=== PATIENT | female | born 1935 | race Caucasian/White ===

== ENCOUNTER 2016-06-23 01:38 | Inpatient (IN) | payer MEDICARE, OTHER ==
[2016-06-23] MEDS ORDERED: SODIUM CHLORIDE 0.9% 500 ML IV STA (02:00)
[2016-06-23] MEDS ORDERED: SODIUM CHLORIDE 0.9% 1,000 ML IV STA (02:00)
[2016-06-23] MEDS ORDERED: RX INFO: IV CONTRAST WAS GIVEN 1 EACH MISC MISCELLANE PRN (02:00)
[2016-06-23] MEDS ORDERED: ONDANSETRON ODT 8 MG TAB.RAPDIS PO STA (02:00)
[2016-06-23] MEDS ORDERED: DICYCLOMINE 10 MG/ML 2 ML AMP IM STA (02:00)
[2016-06-23] MEDS ORDERED: FAMOTIDINE 20 MG/2 ML VIAL IV STA (02:01)
--- NOTE | 2016-06-23 02:04 | ED ---
General Adult HPI - General Chief complaint: Abdominal Pain Stated complaint: ABD PAIN Time Seen by Provider: 06/23/16 01:54 Source: patient, family, RN notes reviewed Mode of arrival: ambulatory Limitations: no limitations - History of Present Illness Initial comments: Patient is a pleasant 80-year-old female presenting to the emergency Department with abdominal discomfort and vomiting. Onset of symptoms was 2-3 days ago. Discomfort has been steady. Patient has developed nausea and now has had a few episodes of emesis. No constipation or diarrhea. No fevers. No history of similar symptoms previously. No chest pain. Patient does have chronic lower back pain and takes pain medication daily for this. - Related Data Home Medications Medication Instructions Recorded Confirmed Aspirin 81 mg PO DAILY 10/08/14 06/23/16 Esomeprazole Magnesium [NexIUM] 20 mg PO DAILY 10/08/14 06/23/16 Furosemide [Lasix] 20 mg PO DAILY 10/08/14 06/23/16 Gabapentin [Neurontin] 100 mg PO TID 10/08/14 06/23/16 HYDROcodone/APAP 5-325MG [[place] 1 tab PO Q6HR PRN 10/08/14 06/23/16 5-325] Losartan Potassium [Cozaar] 100 mg PO DAILY 10/08/14 06/23/16 Metoprolol Tartrate [Lopressor] 50 mg PO DAILY 10/08/14 06/23/16 Warfarin Sodium [Coumadin] 3.5 mg PO DAILY 10/08/14 06/23/16 Potassium Chloride ER [K-Dur 20] 20 meq PO DAILY 11/15/15 06/23/16 Previous Rx's Medication Instructions Recorded Cephalexin [Keflex] 500 mg PO Q12HR 10 Days 11/15/15 Ondansetron HCl [Zofran] 4 mg PO Q8HR PRN #12 tab 11/15/15 Allergies Allergy/AdvReac Type Severity Reaction Status Date / Time amoxicillin trihydrate Allergy Unknown Verified 06/23/16 01:44 [From Augmentin] ciprofloxacin [From Cipro] Allergy Unknown Verified 06/23/16 01:44 ciprofloxacin HCl Allergy Unknown Verified 06/23/16 01:44 [From Cipro] potassium clavulanate Allergy Unknown Verified 06/23/16 01:44 [From Augmentin] Sulfa (Sulfonamide Allergy Rash/Hives Verified 06/23/16 01:44 Antibiotics) Review of Systems ROS Statement: Those systems with pertinent positive or pertinent negative responses have been documented in the HPI. ROS Other: All systems not noted in ROS Statement are negative. Constitutional: Denies: fever Eyes: Denies: eye pain ENT: Denies: ear pain Respiratory: Denies: cough, dyspnea Cardiovascular: Denies: chest pain Endocrine: Denies: fatigue Gastrointestinal: Reports: abdominal pain, nausea, vomiting Genitourinary: Denies: dysuria Musculoskeletal: Reports: back pain (Chronic) Skin: Denies: rash Neurological: Denies: weakness Past Medical History Past Medical History: Asthma, Heart Failure, Diabetes Mellitus, Hypertension 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/16 Past Psychological History: No Psychological Hx Reported Smoking Status: Never smoker Past Alcohol Use History: None Reported Past Drug Use History: None Reported General Exam Limitations: no limitations General appearance: alert, in no apparent distress Head exam: Present: atraumatic Eye exam: Present: normal appearance, PERRL ENT exam: Present: normal oropharynx Neck exam: Present: normal inspection Respiratory exam: Present: normal lung sounds bilaterally Cardiovascular Exam: Present: regular rate, normal rhythm, other (Is nontender swelling beneath the pacemaker left anterior chest wall with some ecchymosis.) Expanded Peripheral pulses: 2+: Dorsalis Pedis (R), Dorsalis Pedis (L) GI/Abdominal exam: Present: soft, tenderness (Mild to moderate epigastric tenderness to palpation.), normal bowel sounds, other (Left inguinal hernia that is not reducible. Nontender.). Absent: distended, guarding, rebound, rigid, pulsatile mass Extremities exam: Present: normal inspection. Absent: pedal edema, calf tenderness Neurological exam: Present: alert Psychiatric exam: Present: normal affect, normal mood Skin exam: Absent: rash Course Vital Signs 06/23/16 01:41 Temperature 97.6 F Pulse Rate 70 Respiratory 18 Rate Blood Pressure 144/70 O2 Sat by Pulse 97 Oximetry EKG Findings - EKG Comments: EKG Findings:: Paced rhythm at 70. QRS 138. QT 556. QTc 600. Left axis. Wide QRS complex. Nonspecific ST-T. Medical Decision Making - Medical Decision Making Patient reexamined and resting comfortably in bed. Patient symptom-free at this time. Patient and family updated on CT results and plan. Hernia is not reducible. Case discussed in detail with Dr. Valente, who will admit for surgical call with medical consult. - Lab Data Result diagrams: 06/23/16 02:27 06/23/16 02:27 Lab Results 06/23/16 06/23/16 06/23/16 Range/Units 02:27 02:27 02:27 WBC 16.4 H (3.8-10.6) k/uL RBC 4.79 (3.80-5.40) m/uL Hgb 13.2 (11.4-16.0) gm/dL Hct 42.3 (34.0-46.0) % MCV 88.3 (80.0-100.0) fL MCH 27.5 (25.0-35.0) pg MCHC 31.1 (31.0-37.0) g/dL RDW 16.9 H (11.5-15.5) % Plt Count 334 (150-450) k/uL Neutrophils % 90 % Lymphocytes % 3 % Monocytes % 7 % Eosinophils % 0 % Basophils % 0 % Neutrophils # 14.7 H (1.3-7.7) k/uL Lymphocytes # 0.4 L (1.0-4.8) k/uL Monocytes # 1.2 H (0-1.0) k/uL Eosinophils # 0.0 (0-0.7) k/uL Basophils # 0.0 (0-0.2) k/uL Hypochromasia Slight Anisocytosis Slight PT (9.0-12.0) sec INR (<1.1) APTT (22.0-30.0) sec Sodium 141 (137-145) mmol/L Potassium 3.8 (3.5-5.1) mmol/L Chloride 97 L (98-107) mmol/L Carbon Dioxide 29 (22-30) mmol/L Anion Gap 15 mmol/L BUN 39 H (7-17) mg/dL Creatinine 0.80 (0.52-1.04) mg/dL Est GFR (MDRD) Af Amer >60 (>60 ml/min/1.73 sqM) Est GFR (MDRD) Non-Af >60 (>60 ml/min/1.73 sqM) Glucose 190 H (74-99) mg/dL Calcium 10.2 (8.4-10.2) mg/dL Total Bilirubin 1.0 (0.2-1.3) mg/dL AST 27 (14-36) U/L ALT 30 (9-52) U/L Alkaline Phosphatase 81 (38-126) U/L Total Creatine Kinase 34 (30-135) U/L CK-MB (CK-2) 1.1 (0.0-2.4) ng/mL CK-MB (CK-2) Rel Index 3.2 Troponin I <0.012 (0.000-0.034) ng/mL Total Protein 8.5 H (6.3-8.2) g/dL Albumin 4.6 (3.5-5.0) g/dL Amylase 65 (30-110) U/L Lipase 74 (23-300) U/L 06/23/16 Range/Units 02:27 WBC (3.8-10.6) k/uL RBC (3.80-5.40) m/uL Hgb (11.4-16.0) gm/dL Hct (34.0-46.0) % MCV (80.0-100.0) fL MCH (25.0-35.0) pg MCHC (31.0-37.0) g/dL RDW (11.5-15.5) % Plt Count (150-450) k/uL Neutrophils % % Lymphocytes % % Monocytes % % Eosinophils % % Basophils % % Neutrophils # (1.3-7.7) k/uL Lymphocytes # (1.0-4.8) k/uL Monocytes # (0-1.0) k/uL Eosinophils # (0-0.7) k/uL Basophils # (0-0.2) k/uL Hypochromasia Anisocytosis PT 12.4 H (9.0-12.0) sec INR 1.3 (<1.1) APTT 23.0 (22.0-30.0) sec Sodium (137-145) mmol/L Potassium (3.5-5.1) mmol/L Chloride (98-107) mmol/L Carbon Dioxide (22-30) mmol/L Anion Gap mmol/L BUN (7-17) mg/dL Creatinine (0.52-1.04) mg/dL Est GFR (MDRD) Af Amer (>60 ml/min/1.73 sqM) Est GFR (MDRD) Non-Af (>60 ml/min/1.73 sqM) Glucose (74-99) mg/dL Calcium (8.4-10.2) mg/dL Total Bilirubin (0.2-1.3) mg/dL AST (14-36) U/L ALT (9-52) U/L Alkaline Phosphatase (38-126) U/L Total Creatine Kinase (30-135) U/L CK-MB (CK-2) (0.0-2.4) ng/mL CK-MB (CK-2) Rel Index Troponin I (0.000-0.034) ng/mL Total Protein (6.3-8.2) g/dL Albumin (3.5-5.0) g/dL Amylase (30-110) U/L Lipase (23-300) U/L - Radiology Data Radiology results: report reviewed (Computed tomography scan of the abdomen pelvis concerning for small bowel obstruction with left inguinal hernia containing a portion of small bowel.) Disposition Clinical Impression: Small bowel obstruction, Inguinal hernia Disposition: ADMITTED IP TO THIS HOSP
[2016-06-23 02:48] LABS: ALT 30 U/L (9-52); AST 27 U/L (14-36); Alkaline Phosphatase 81 U/L (38-126); Amylase 65 U/L (30-110); Anion Gap 15 mmol/L; Blood Urea Nitrogen 39 mg/dL (7-17); Calcium 10.2 mg/dL (8.4-10.2); Carbon Dioxide 29 mmol/L (22-30); Chloride 97 mmol/L (98-107); Glucose 190 mg/dL (74-99); Non-African American GFR(MDRD) >60 (>60 ml/min/1.73 sqM); Potassium 3.8 mmol/L (3.5-5.1); Sodium 141 mmol/L (137-145); Total Protein 8.5 g/dL (6.3-8.2)
[2016-06-23 02:53] LABS: INR 1.3 (<1.1); Prothrombin Time 12.4 sec (9.0-12.0)
[2016-06-23 02:55] LABS: Anisocytosis Slight; Basophils % (A) 0 %; CH 27.5; CHCM 31.2; Eosinophils % (A) 0 %; HCT 42.3 % (34.0-46.0); HGB 13.2 gm/dL (11.4-16.0); Hypochromasia Slight; Luc % (Auto) 1; Lymphocytes # (A) 0.4 k/uL (1.0-4.8); Lymphocytes % (A) 3 %; MCH 27.5 pg (25.0-35.0); MCHC 31.1 g/dL (31.0-37.0); MCV 88.3 fL (80.0-100.0); Mean Platelet Volume 6.9; Monocytes # (A) 1.2 k/uL (0-1.0); Monocytes % (A) 7 %; Neutrophils # (A) 14.7 k/uL (1.3-7.7); Neutrophils % (A) 90 %; RBC 4.79 m/uL (3.80-5.40); RDW 16.9 % (11.5-15.5); WBC 16.4 k/uL (3.8-10.6); WBC (Perox) 16.16
[2016-06-23 03:03] LABS: Creatine Kinase 34 U/L (30-135)
[2016-06-23 03:15] LABS: Creatine Kinase MB 1.1 ng/mL (0.0-2.4); Troponin I <0.012 ng/mL (0.000-0.034)
--- NOTE | 2016-06-23 04:21 | CT ---
EXAMINATION TYPE: CT abdomen pelvis w con DATE OF EXAM: 06/23/2016 3:19 AM COMPARISON: NONE HISTORY: Upper abd pain, nausea. CT DLP: 354.10 mGycm Automated exposure control for dose reduction was used. CONTRAST: Performed without Oral Contrast and with IV Contrast, patient injected with 100 mL of Omnipaque 300. FINDINGS: Heart is enlarged. There is no pleural effusion. There are clips from cholecystectomy. Spleen appears normal. There is no pancreatic mass. Liver shows no focal defect. Bile ducts are not dilated. There is no adrenal mass. Kidneys show satisfactory contrast opacification. There is no hydronephrosi s. There are multiple dilated fluid-filled loops of small bowel in the midabdomen. There are numerous di verticula in the sigmoid colon. There is no evidence of free air. There is no retroperitoneal adenopa thy. Abdominal aorta is atheromatous. Bladder distends smoothly. There is a left inguinal hernia that contains fluid. There appears to be a loop of small bowel involved with the hernia with incarceratio n and obstruction. IMPRESSION: MECHANICAL SMALL BOWEL OBSTRUCTION WITH APPARENT INCARCERATED LEFT INGUINAL HERNIA CONTAINING A LOOP OF OBSTRUCTED SMALL BOWEL. SEVERE SIGMOID DIVERTICULOSIS WITHOUT EVIDENCE OF DIVERTICULITIS. CARDIOMEGALY.
[2016-06-23] MEDS ORDERED: ONDANSETRON 4 MG/2 ML VIAL IVP PRN ×2 (04:36→13:02)
[2016-06-23] MEDS ORDERED: NALOXONE 0.4 MG/ML 1 ML VIAL IV PRN ×2 (04:36→13:02)
[2016-06-23] MEDS ORDERED: LIDOCAINE URO-JET JELLY 2% 5 ML KIT ENDOTRACHE ONE (05:00)
[2016-06-23] MEDS: SODIUM CHLORIDE 0.9% 1,000 ML IV SCH ×2 (06:55→14:27)
[2016-06-23] MEDS ORDERED: PANTOPRAZOLE 40 MG/10 ML VIAL IV SCH (09:00)
[2016-06-23 09:02] LABS: Appearance,Urine Clear (Clear); Bilirubin,Urine Negative (Negative); Glucose,Urine (UA) Negative (Negative); Ketones,Urine Negative (Negative); Leukocyte Esterase,Urine Negative (Negative); Mucus,Urine Rare /hpf; Nitrite,Urine Negative (Negative); PH, Urine 5.5 (5.0-8.0); Particle Count 4821; Protein,Urine 1+ (Negative); Squamous Epithelial Cell,Urine 1 /hpf (0-4); UA Billing (MACRO vs. MICRO) MICRO; Urobilinogen,Urine <2.0 mg/dL (<2.0); WBC,Urine 2 /hpf (0-5)
[2016-06-23 09:04] LABS: Specific Gravity,Urine >1.050 (1.001-1.035)
--- NOTE | 2016-06-23 09:06 | P.CRDCN ---
History of Present Illness Consult date: 06/23/16 Reason for Consult (text): Pre-operative clearance Chief complaint: abdominal pain History of present illness: This is a pleasant 80-year-old female patient who follows with a counter clerk [employer] out of [facility] with a known history of sick sinus syndrome, AICD in place with recent generator change, patient appears to be pacemaker dependent, atrial fibrillation on Coumadin, mitral valve repair and hypertension. Patient presented to the emergency department with complaints of abdominal pain as well as nausea and vomiting that had been going on for at least 3 days. Patient has a left inguinal hernia that she says has recently gotten larger. Cardiology was asked to see the patient in consult as patient is requiring emergent surgery for reduction and repair of an incarcerated left inguinal hernia by Dr. Valente. Upon examination, patient appears to be quite comfortable however continues to complain complain of some abdominal discomfort as well as pain at her left inguinal hernia with palpation. She has had no complaints of shortness of breath, palpitations, chest discomfort, dizziness or syncope. Past Medical History Past Medical History: Heart Failure, Diabetes Mellitus, Hypertension, Osteoarthritis (OA), Pneumonia, Thyroid Disorder 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/16 Type of Cardiac Device: Permanent Pacemaker Device Placement Date:: 2011 Past Psychological History: No Psychological Hx Reported Smoking Status: Never smoker Past Alcohol Use History: None Reported Past Drug Use History: None Reported Medications and Allergies Home Medications Medication Instructions Recorded Confirmed Type Aspirin 81 mg PO DAILY 10/08/14 06/23/16 History Esomeprazole Magnesium [NexIUM] 20 mg PO DAILY 10/08/14 06/23/16 History Furosemide [Lasix] 20 mg PO DAILY 10/08/14 06/23/16 History Gabapentin [Neurontin] 100 mg PO TID 10/08/14 06/23/16 History HYDROcodone/APAP 5-325MG [[place] 1 tab PO Q6HR PRN 10/08/14 06/23/16 History 5-325] Losartan Potassium [Cozaar] 100 mg PO DAILY 10/08/14 06/23/16 History Metoprolol Tartrate [Lopressor] 50 mg PO DAILY 04/14/15 12/28/16 History Warfarin Sodium [Coumadin] 3.5 mg PO DAILY 10/08/14 06/23/16 History Potassium Chloride ER [K-Dur 20] 20 meq PO DAILY 11/15/15 06/23/16 History Allergies Allergy/AdvReac Type Severity Reaction Status Date / Time amoxicillin trihydrate Allergy Unknown Verified 06/23/16 01:44 [From Augmentin] ciprofloxacin [From Cipro] Allergy Unknown Verified 06/23/16 01:44 ciprofloxacin HCl Allergy Unknown Verified 06/23/16 01:44 [From Cipro] potassium clavulanate Allergy Unknown Verified 06/23/16 01:44 [From Augmentin] Sulfa (Sulfonamide Allergy Rash/Hives Verified 06/23/16 01:44 Antibiotics) Physical Exam Vitals: Vital Signs Temp Pulse Pulse Resp BP BP Pulse Ox 06/23/16 07:54 70 06/23/16 07:00 97.8 F 70 16 135/72 96 06/23/16 06:00 97.0 F L 70 16 148/85 95 06/23/16 05:14 68 18 170/79 94 L Intake and Output 06/22/16 06/23/16 06/23/16 22:59 06:59 14:59 Intake Total 1000 Balance 1000 Intake: Amount of Fluid Infused ( 1000 ml) Other: Voiding Method Toilet Weight 67.5 kg PHYSICAL EXAMINATION: HEENT: Head is atraumatic, normocephalic. Pupils equal, round. Neck is supple. There is no elevated jugular venous pressure. HEART EXAMINATION: Heart sounds regular, S1 and S2 with a systolic murmur heard. CHEST EXAMINATION: Lungs are clear to auscultation and precussion. LIC incision , post generator change Steri-Strips intact, mild to moderate semi-soft hematoma noted. ABDOMEN: Soft, tender. NG tube in place to low intermittent suction, no bowel sounds are heard. Left inguinal hernia noted. EXTREMITIES: 2+ peripheral pulses with no evidence of peripheral edema and no calf tenderness noted. NEUROLOGIC patient is awake, alert and oriented x3. . Results 06/23/16 02:27 06/23/16 02:27 Current Medications Generic Name Dose Route Start Last Admin Trade Name Freq PRN Reason Stop Dose Admin Sodium Chloride 1,000 mls @ 100 mls/hr 06/23/16 02:00 06/23/16 02:45 Saline 0.9% IV 06/23/16 11:59 100 mls/hr .Q10H STA Administration Sodium Chloride 1,000 mls @ 100 mls/hr 06/23/16 04:45 06/23/16 06:55 Saline 0.9% IV 100 mls/hr .Q10H BRAYAN Administration Miscellaneous Information 1 each 06/23/16 02:00 Rx Info: Iv Contrast Was Given MISCELLANE 06/25/16 02:01 DAILY PRN Per Protocol Morphine Sulfate 4 mg 06/23/16 04:36 Morphine Sulfate (Inj) IV Q4HR PRN Severe Pain Naloxone HCl 0.2 mg 06/23/16 04:36 Narcan IV Q2M PRN Opioid Reversal Ondansetron HCl 4 mg 06/23/16 04:36 Zofran IVP Q8HR PRN Nausea And Vomiting Pantoprazole Sodium 40 mg 06/23/16 09:00 Protonix IV DAILY BRAYAN Intake and Output 06/22/16 06/23/16 06/23/16 22:59 06:59 14:59 Intake Total 1000 Balance 1000 Intake: Amount of Fluid Infused ( 1000 ml) Other: Voiding Method Toilet Weight 67.5 kg Assessment and Plan Plan: Assessment and plan #1 Abdominal pain with evidence of incarcerated hernia #2 Chronic atrial fibrillation #3 Sick sinus syndrome, pacemaker dependent #4 hypertension #[address], s/p recent generator change The patient was seen and examined this morning. She is requiring emergent surgery for reduction and repair of the left inguinal incarcerated hernia and bowel obstruction. The patient is at intermediate risk for intraoperative cardiac event, she is in an acceptable risk to undergo surgery. We will obtain records from [facility]. A magnet will be placed over the AICD intraoperatively and we will call [employer] for interrogation of the device postoperatively. The patient will need to resume anticoagulation when okay with surgery. We will continue to follow the patient and provide further recommendations accordingly. The above dictated assessment and findings were discussed with signing physician. The impression and plan of care have been directed as dictated. Nayely Guerrero, Nurse Practitioner, acting as scribe for signing physician.
[2016-06-23] MEDS ORDERED: HEPARIN SODIUM,PORCINE 5,000 UNIT/ML 1 ML VIAL SQ ONE (09:25)
--- NOTE | 2016-06-23 09:25 | P.GSHP ---
History of Present Illness H&P Date: 06/23/16 Chief Complaint: Abdominal pain, bulge left groin Patient is an 80-year-old white female who presented to the emergency room with a several-day history of nausea and vomiting. Additionally she had some diffuse abdominal discomfort. A CAT scan was performed which revealed an incarcerated left inguinal hernia with bowel present in the hernia sac. The patient states that she has been passing flatus and did pass flatus within the last 24 hours. Of additional concern is the fact that the patient was having black stools approximately a month ago and had a colonoscopy and EGD performed. She states that the cause with a black stools had not been determined and she was to undergo further workup in the future. The patient's medical history is also significant for the fact that she has an AICD present illness completely pacer dependent. Additionally she has had a mitral valve replaced in the past. Her medical doctors are in the [place] area however she wishes to have this surgery performed and purulent if possible. Past surgical history: 1. Pacemaker replaced secondary to a recall approximately 3 weeks ago in the [place] area after which she developed a hematoma at the site 2. Mitral valve replacement 3. Cholecystectomy 4. Bilateral cataracts surgery Past medical history: 1. Mitral valve replaced, atrial fibrillation 2. Congestive heart failure 3. Cardiac ablation 4. Hypothyroidism 5. Diabetes 6. Osteoarthritis 7. Hypothyroidism ALLERGIES: Sulfa Social history: Smoking negative Alcohol negative 4 pregnancies 4 children Family history: Sr. colon cancer. Review of systems: HEENT: Hearing aids and cataracts Lungs: Pneumonia Heart: Mitral valve replacement, sick sinus syndrome, atrial fibrillation, pacemaker dependent GI: As above : Negative - Constitutional Constitutional: Reports as per HPI - Cardiovascular Cardiovascular: Reports as per HPI - Respiratory Respiratory: Reports as per HPI - Gastrointestinal Gastrointestinal: Reports as per HPI - Genitourinary (Female) Genitourinary: Reports as per HPI - Musculoskeletal Musculoskeletal: Reports as per HPI - Endocrine Endocrine: Reports as per HPI Past Medical History Past Medical History: Heart Failure, Diabetes Mellitus, Hypertension, Osteoarthritis (OA), Pneumonia, Thyroid Disorder 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/16 Type of Cardiac Device: Permanent Pacemaker Device Placement Date:: 2011 Past Psychological History: No Psychological Hx Reported Smoking Status: Never smoker Past Alcohol Use History: None Reported Past Drug Use History: None Reported Medications and Allergies Home Medications Medication Instructions Recorded Confirmed Type Aspirin 81 mg PO DAILY 10/08/14 06/23/16 History Esomeprazole Magnesium [NexIUM] 20 mg PO DAILY 10/08/14 06/23/16 History Furosemide [Lasix] 20 mg PO DAILY 10/08/14 06/23/16 History Gabapentin [Neurontin] 100 mg PO TID 10/08/14 06/23/16 History HYDROcodone/APAP 5-325MG [[place] 1 tab PO Q6HR PRN 10/08/14 06/23/16 History 5-325] Losartan Potassium [Cozaar] 100 mg PO DAILY 10/08/14 06/23/16 History Metoprolol Tartrate [Lopressor] 50 mg PO DAILY 10/08/14 06/23/16 History Warfarin Sodium [Coumadin] 3.5 mg PO DAILY 10/08/14 06/23/16 History Potassium Chloride ER [K-Dur 20] 20 meq PO DAILY 11/15/15 06/23/16 History Allergies Allergy/AdvReac Type Severity Reaction Status Date / Time amoxicillin trihydrate Allergy Unknown Verified 06/23/16 01:44 [From Augmentin] ciprofloxacin [From Cipro] Allergy Unknown Verified 06/23/16 01:44 ciprofloxacin HCl Allergy Unknown Verified 06/23/16 01:44 [From Cipro] potassium clavulanate Allergy Unknown Verified 06/23/16 01:44 [From Augmentin] Sulfa (Sulfonamide Allergy Rash/Hives Verified 06/23/16 01:44 Antibiotics) Surgical - Exam Vital Signs Temp Pulse Resp BP Pulse Ox 97.6 F 70 18 144/70 97 06/23/16 01:41 06/23/16 01:41 06/23/16 01:41 06/23/16 01:41 06/23/16 01:41 - General NG tube in place well developed, well nourished, moderate distress - Eyes normal ocular movement - ENT normal pinna, normal nares, normal mucosa - Neck no masses, trachea midline, no lymphadectomy, no venous distension - Respiratory Current decreased breath sounds at the bases normal expansion, clear to auscultation - Cardiovascular Heart Sounds: normal: S1, S2 - Abdomen Incarcerated left inguinal hernia unable to be reduced, no right inguinal hernia appreciated Abdomen: soft, non tender, bowel sounds Hernia: inguinal - Integumentary no rash, no growths - Neurologic normal coordination - Psychiatric oriented to time, oriented to person, speech is normal Results - Labs 06/23/16 02:27 06/23/16 02:27 Abnormal Lab Results - Last 24 Hours (Table) 06/23/16 Range/Units 08:04 Ur Specific [place] >1.050 H (1.001-1.035) Urine Protein 1+ H (Negative) Urine Mucus Rare H (None) /hpf - Imaging CT scan - abdomen: report reviewed, image reviewed US - abdomen: report reviewed, image reviewed (Patient with multiple medical problems who presents with an incarcerated left inguinal hernia resulting in bowel obstruction) Assessment and Plan Plan: Impression/plan: 1. A incarcerated left inguinal hernia resulting in small bowel obstruction 2. Cardiac disease including atrial fibrillation, sick sinus syndrome, mitral valve replacement 3. Diabetes 4. Osteoarthritis 5. Hypothyroidism Plan: 1. Cardiac clearance has been obtained for surgical intervention 2. Case has been discussed with Dr. Weinberg was agrees with proceeding with surgery 3. Surgical intervention to reduce incarcerated left inguinal hernia and repair hernia Patient is at increased surgical risk secondary to her age and cardiac history. The family and patient wished the operative intervention to be performed in [place]. They understand the risks and benefits including bleeding and infection reaction to the anesthetic. They understand the depending on the integrity of the bowel may be necessary to do a bowel resection. They wish to proceed with surgical intervention.
[2016-06-23] MEDS ORDERED: IV FLUID CONTINUATION 1,000 ML IV ONE (09:36)
[2016-06-23] MEDS ORDERED: LIDOCAINE 1% 20 ML VIAL (10MG/ML) FOR IV START INTRADERMA ONE (10:00)
[2016-06-23] MEDS ORDERED: LACTATED RINGERS 1,000 ML IV ONE (10:00)
[2016-06-23 10:04] LABS: Glucose,Whole Blood 120 mg/dL (75-99)
[2016-06-23] MEDS ORDERED: LIDOCAINE 1% INJ 10MG/ML (20 ML MDV) ONE (10:06)
[2016-06-23] MEDS ORDERED: GLYCOPYRROLATE 0.2 MG/ML 2 ML VIAL ONE (10:06)
[2016-06-23] MEDS ORDERED: ETOMIDATE 2 MG/ML 10 ML VIAL ONE (10:06)
[2016-06-23] MEDS ORDERED: NEOSTIGMINE 1 MG/ML 10 ML VIAL ONE (10:06)
[2016-06-23] MEDS: ceFAZolin 2 GM in SODIUM CHLORIDE 0.9% 100 ML IVPB SCH ×2 (10:06→14:35)
[2016-06-23] MEDS ORDERED: fentaNYL (PF) 50 MCG/ML 2 ML AMP ONE (10:06)
[2016-06-23] MEDS ORDERED: SUCCINYLCHOLINE CHLORIDE 100 MG/5 ML SYR IV ONE (10:06)
[2016-06-23] MEDS ORDERED: VECURONIUM 10 MG VIAL IV ONE (10:06)
[2016-06-23] MEDS ORDERED: ceFAZolin 2,000 MG in DEXTROSE/WATER 1 50ML.BAG IVPB SCH (12:00)
[2016-06-23] MEDS: INSULIN LISPRO (humaLOG) 300 UNIT/3 ML VIAL SQ SCH ×2 (12:17→17:27)
[2016-06-23] MEDS ORDERED: HYDROmorphone 1 MG/ML 1 ML SYRINGE IV PRN (13:02)
--- NOTE | 2016-06-23 13:02 | P.OP ---
Date of Procedure: 06/23/16 Preoperative Diagnosis: Incarcerated left groin hernia with small bowel obstruction Postoperative Diagnosis: Incarcerated left femoral hernia, small bowel obstruction, questionable viability of incarcerated bowel Procedure(s) Performed: Left groin exploration, reduction of incarcerated femoral hernia, midline lower abdominal laparotomy to reduce incarcerated hernia, small bowel resection with primary anastomosis, repair of left femoral groin hernia Implants: Anesthesia: TRICIAA Surgeon: Donna Valente Estimated Blood Loss (ml): 50 IV fluids (ml): 700 Urine output (ml): 250 Pathology: other (Hernia sac) Condition: stable Disposition: PACU Indications for Procedure: Incarcerated left groin hernia with small bowel obstruction Operative Findings: Incarcerated left groin/femoral hernia with bowel of questionable viability, small bowel resection and repair of left femoral hernia Description of Procedure: Patient was taken to the operating room and following induction of general anesthesia a Wallace catheter was placed. The left groin and abdomen were prepped and draped in a sterile fashion. An incision was made in the left lower quadrant and carried down to the fascia of the aponeurosis of the external bike. This was skeletonized to the external ring. The obvious incarcerated hernia. To be extending underneath the aponeurosis of the external bike and into the femoral canal. This was able to be freed and brought into the inguinal canal however the sac had very dark tissue present in it. Additionally the neck of the sac was very tight. Entered into the peritoneal cavity. The sac was opened and there was fluid in the sac and the tissue was of questionable viability. 2 reduction en varinder of possible nonviable bowel it was felt that it would be best to open the peritoneal cavity. Midline lower abdominal incision was performed. The fascia was divided the peritoneum was opened. Upon entering the peritoneal cavity we were able to reduce the hernia from the left groin area. This appeared to be a femoral hernia. The bowel which was present in the hernia sac was of questionable integrity. Therefore was determined it would be wisest to do a small bowel resection. The small bowel was resected using a stapling device. A [id number] functional end to end anastomosis was performed. The defect in the mesentery was closed using a Vicryl suture. The peritoneal cavity was well irrigated. The area of the hernia sac was inverted and the sac was removed. The peritoneum was closed using this silk suture at this site. After closure of the peritoneum at the hernia site was determined that the anterior abdominal wall could be closed. The peritoneum was closed with a 3-0 Vicryl suture. This was followed by closure of the fascia with PDS. The skin was closed with azalea. Prior to this closure and after the small bowel resection and anastomosis gowns gloves and all instruments were changed. The area of the left groin was then approached. Secondary to the question as to whether mesh could be placed because this was a clean contaminated case intraoperative consultation was obtained with Dr. Joe Williamson from infectious disease. After discussion it was felt that it would be reasonable to place a Marlex mesh. The round ligament was isolated and removed. A Susi repair was performed bringing the shelving edge of the aponeurosis of the external oblique to Santana's ligament. This was carried to the area of the femoral vessels. Following this an onlay Marlex mesh 1 x 3 cm was placed and secured using a Prolene suture. Following this the aponeurosis of the external bike was closed using a Vicryl suture. One percent lidocaine was injected into the area of the repair. Subcutaneous tissues were closed using 3-0 Vicryl suture. The skin was closed using azalea. All instrument and sponge counts were correct at the end of the case.
[2016-06-23] MEDS ORDERED: LORazepam 2 MG/ML SYRINGE IV ONE (13:15)
[2016-06-23 13:32] LABS: Glucose,Whole Blood 113 mg/dL (75-99)
[2016-06-23] MEDS ORDERED: HYDROmorphone 1 MG/ML 1 ML SYRINGE IVP ONE (13:35)
[2016-06-23] MEDS: HEPARIN SODIUM,PORCINE 5,000 UNIT/ML 1 ML VIAL SQ SCH (15:17)
[2016-06-23] MEDS: metroNIDAZOLE-NS PMX 500 MG in SALINE 1 100ML.BAG IVPB SCH (15:17)
[2016-06-23 15:21] LABS: Hemoglobin A1C 5.1 % (4.2-6.1)
[2016-06-23] MEDS ORDERED: MELATONIN 3 MG TABLET PO PRN (15:21)
[2016-06-23] MEDS: GABAPENTIN 100 MG CAP PO SCH ×2 (16:29→21:44)
[2016-06-23 17:27] LABS: Glucose,Whole Blood 132 mg/dL (75-99)
[2016-06-23] MEDS: ceFAZolin 1,000 MG in DEXTROSE/WATER 1 50ML.BAG IVPB SCH (18:25)
[2016-06-23] MEDS: KETOROLAC 30 MG/ML 1 ML VIAL IVP PRN (18:27)
--- NOTE | 2016-06-23 21:17 | CONS ---
DATE OF CONSULTATION: REASON FOR CONSULTATION: Preoperative clearance. Patient is a pleasant 80-year-old female who is admitted for incarcerated hernia. Medicine Service evaluated preoperatively and postoperatively. Patient apparently has ( ) from AICD and a generator and patient does have history of atrial fibrillation, mitral valvular repair in the past. Does not appear to have any congestive heart failure. Came in for inguinal hernia repair, which apparently was incarcerated. I saw her postoperatively. Patient successfully underwent surgery. Patient's functional status is ( ) and patient was intermediate risk but able to get the surgery done successfully. Postoperatively the patient is on Dilaudid. I do not believe that is a good idea. Dilaudid was discontinued. Patient has an NG tube in place. Patient is on metoprolol, which we are unable to give, but if she becomes tachycardic then we may need to give IV Dilaudid or Cardizem at that time. Patient was drowsy from anesthesia. Patient denied any fever or chills. Patient denied any shortness of breath, palpitations, chest pain, dizziness or syncopal episode. ROS: all other systems were reviewed and were negative. Past medical history is significant for: 1. Diabetes mellitus. 2. Hypertension. 3. Mitral valve repair. 4. Hypothyroidism. 5. Patient has sick sinus syndrome. 6. Atrial fibrillation. 7. AICD. 8. Cholecystectomy. 9. Pacemaker placement. SOCIAL HISTORY: Never a smoker. Denied any alcohol abuse or any drug abuse. FAMILY HISTORY: Not available at this point of time, although I do not believe it is relevant at this point of time at this age. Home medications include: 1. Aspirin. 2. Esomeprazole. 3. Lasix 20 mg orally daily. 4. Gabapentin. 5. Hydrocodone/acetaminophen. 6. Losartan. 7. Metoprolol. 8. Coumadin. 9. Potassium chloride. ALLERGIES: 1. AMOXICILLIN. 2. CIPROFLOXACIN. 3. POTASSIUM. 4. SULFA DRUGS. PHYSICAL EXAMINATION: VITAL SIGNS: Temperature 97.8, pulse of 70, respiratory rate of 16. Blood pressure is 135/72. Saturating at 96% on room air. GENERAL: The patient is alert and oriented x3, not in any acute distress. Well developed, well nourished. HEENT: Pupils are round and equally reacting to light. EOMI. No scleral icterus. No conjunctival pallor. Normocephalic, atraumatic. No pharyngeal erythema. No thyromegaly. CARDIOVASCULAR: S1 and S2 present. No murmurs, rubs, or gallops. PULMONARY: Chest is clear to auscultation, no wheezing or crackles. ABDOMEN: Post-surgical abdomen. Clean. Sluggish bowel sounds. Patient has an NG tube in place. MUSCULOSKELETAL: No joint swelling or deformity. EXTREMITIES: No cyanosis, clubbing, or pedal edema. NEUROLOGICAL: Gross neurological examination did not reveal any focal deficits. SKIN: No rashes. LABORATORY DATA: Significant for elevated WBC count of 16,200 due to incarcerated hernia. Hemoglobin A1C of 5.1. Rest of the electrolytes is essentially within normal limits. Lipase is within normal limits. Patient is on preoperative antibiotics cefazolin and metronidazole. ASSESSMENT AND PLAN: 1. Incarcerated ventral hernia. Patient ( ) patient is intermediate risk for surgery and patient should go ahead and get the surgery done, as this is an emergent surgery. As I evaluated postoperative as well, patient did clinically well and patient has an NG tube in place. 2. Chronic atrial fibrillation and sick sinus syndrome. Patient needs to be reinitiated on metoprolol as soon as she can tolerate oral medication. Patient at present has an NG tube. Heart rate is fine. Will just hold off and watch her. Regarding her Coumadin, which probably can be restarted once she can tolerate the oral therapy ( ) at this point of time. Antibiotic therapy as per primary service. 3. Hypertension. 4. Diabetes mellitus. 5. Osteoarthritis. 6. Hypothyroidism. For above-mentioned chronic medical problems, I will go ahead and continue her home medications except for metformin. Patient will be started on sliding scale insulin instead. Thank you for letting me participate in the patient's care. I will continue to follow. Avoid narcotic medications. Will use Ketorolac and patient is already on a proton pump inhibitor, which can be continued. MTDD
[2016-06-23] MEDS: WARFARIN 3 MG TAB PO SCH (21:44)
[2016-06-23] MEDS: METOPROLOL TARTRATE 25 MG TAB PO SCH (21:44)
[2016-06-23 22:00] LABS: Glucose,Whole Blood 142 mg/dL (75-99)
[2016-06-24 00:06] LABS: Appearance,Urine Cloudy (Clear); Bacteria,Urine Rare /hpf; Bilirubin,Urine Negative (Negative); Glucose,Urine (UA) Negative (Negative); Ketones,Urine 1+ (Negative); Leukocyte Esterase,Urine Large (Negative); Mucus,Urine Rare /hpf; Nitrite,Urine Negative (Negative); Particle Count 15547; Protein,Urine 1+ (Negative); RBC,Urine 10 /hpf (0-5); Specific Gravity,Urine 1.037 (1.001-1.035); Squamous Epithelial Cell,Urine 4 /hpf (0-4); UA Billing (MACRO vs. MICRO) MICRO; WBC,Urine 18 /hpf (0-5)
[2016-06-24] MEDS: INSULIN LISPRO (humaLOG) 300 UNIT/3 ML VIAL SQ SCH ×4 (00:13→16:19)
[2016-06-24 00:14] LABS: Glucose,Whole Blood 121 mg/dL (75-99)
[2016-06-24] MEDS: HEPARIN SODIUM,PORCINE 5,000 UNIT/ML 1 ML VIAL SQ SCH ×4 (00:19→23:46)
[2016-06-24] MEDS: MORPHINE SULFATE 4 MG/ML SYRINGE IV PRN ×2 (02:38→08:56)
[2016-06-24] MEDS: ceFAZolin 1,000 MG in DEXTROSE/WATER 1 50ML.BAG IVPB SCH ×3 (02:39→13:38)
[2016-06-24] MEDS: SODIUM CHLORIDE 0.9% 1,000 ML IV SCH ×3 (02:41→20:51)
[2016-06-24] MEDS: metroNIDAZOLE-NS PMX 500 MG in SALINE 1 100ML.BAG IVPB SCH ×3 (03:38→15:18)
[2016-06-24 05:33] LABS: Glucose,Whole Blood 98 mg/dL (75-99)
[2016-06-24] MEDS: KETOROLAC 30 MG/ML 1 ML VIAL IVP PRN ×2 (05:40→13:39)
[2016-06-24] MEDS: LEVOTHYROXINE 25 MCG TAB PO SCH (06:31)
[2016-06-24 08:23] LABS: Anisocytosis Slight; Basophils % (A) 0 %; CH 27.2; CHCM 29.5; Eosinophils # (A) 0.1 k/uL (0-0.7); Eosinophils % (A) 1 %; HCT 36.5 % (34.0-46.0); HGB 11.1 gm/dL (11.4-16.0); Hypochromasia Marked; Luc # (Auto) 0.12; Luc % (Auto) 1; Lymphocytes # (A) 0.5 k/uL (1.0-4.8); Lymphocytes % (A) 6 %; MCHC 30.3 g/dL (31.0-37.0); MCV 92.4 fL (80.0-100.0); Mean Platelet Volume 6.5; Monocytes # (A) 0.6 k/uL (0-1.0); Monocytes % (A) 7 %; Neutrophils # (A) 7.1 k/uL (1.3-7.7); Neutrophils % (A) 85 %; RBC 3.95 m/uL (3.80-5.40); RDW 16.7 % (11.5-15.5); WBC 8.4 k/uL (3.8-10.6); WBC (Perox) 9.12
[2016-06-24 08:37] LABS: Glucose 107 mg/dL (74-99)
[2016-06-24 08:38] LABS: ALT 35 U/L (9-52); AST 21 U/L (14-36); Alkaline Phosphatase 60 U/L (38-126); Anion Gap 13 mmol/L; Blood Urea Nitrogen 34 mg/dL (7-17); Calcium 8.5 mg/dL (8.4-10.2); Carbon Dioxide 26 mmol/L (22-30); Chloride 109 mmol/L (98-107); Non-African American GFR(MDRD) >60 (>60 ml/min/1.73 sqM); Potassium 3.4 mmol/L (3.5-5.1); Sodium 148 mmol/L (137-145); Total Bilirubin 0.6 mg/dL (0.2-1.3)
[2016-06-24] MEDS: GABAPENTIN 100 MG CAP PO SCH ×3 (08:40→21:15)
[2016-06-24] MEDS: PANTOPRAZOLE 40 MG/10 ML VIAL IV SCH (08:40)
[2016-06-24] MEDS: ASPIRIN 81 MG CHEW PO SCH (08:40)
[2016-06-24] MEDS: METOPROLOL TARTRATE 25 MG TAB PO SCH ×2 (08:40→21:15)
--- NOTE | 2016-06-24 10:23 | XR ---
EXAMINATION TYPE: XR chest 1V DATE OF EXAM: 06/24/2016 7:15 AM COMPARISON: 11/15/2015 HISTORY: Shortness of breath TECHNIQUE: Single frontal view of the chest is obtained. FINDINGS: Bilateral lower lobe infiltrate and small left effusion. NG tube noted in the abdomen. Car diac device and postsurgical changes with prosthetic heart valve. Cardiomegaly seen. Correlate for COPD. Diffuse osteopenia. No pneumothorax. IMPRESSION: 1. Bilateral infiltrate and small left effusion correlate for mild central venous congestion.
--- NOTE | 2016-06-24 10:28 | P.PN ---
Subjective Mrs. Peres is an 80-year-old white female who is status post reduction of an incarcerated femoral hernia which was resulting in small bowel obstruction. She additionally had repair of the hernia and small bowel resection for area of questionable viability. She is postop day #1. She has no complaints at this time. She has an NG tube which remains in place with approximately 500 mL since the time of surgery. The patient's urine output is recorded as proximally 600 mL. The patient's white count is 8.4 down from 16.4. Patient's hemoglobin 11.1 down from 13.2. Objective - Vital Signs Vital signs: Vital Signs Temp 97.8 F 06/24/16 07:00 Pulse 73 06/24/16 07:00 Resp 16 06/24/16 07:00 BP 127/60 06/24/16 07:00 Pulse Ox 95 06/24/16 07:00 Intake & Output 06/23/16 06/24/16 06/24/16 18:59 06:59 18:59 Intake Total 950 850 Output Total 1060 600 Balance -110 250 Weight 62 kg Intake: IV 950 150 ceFAZolin 1,000 mg In 50 Dextrose/Water 1 50ml.bag @ 100 mls/hr IVPB Q6HR [facility] Rx#:[id number] metroNIDAZOLE-NS PMX 500 100 mg In Saline 1 100ml.bag @ 100 mls/hr IVPB Q8HR [facility] Rx#:[id number] Intake, IV Titration 700 Amount Sodium Chloride 0.9% 1, 700 000 ml @ 100 mls/hr IV . Q10H [facility] Rx#:[id number] Oral 0 Output: Gastric Drainage 760 Urine 250 600 Uretheral (Wallace) 300 Estimated Blood Loss 50 Other: Voiding Method Bedpan Bedpan # Voids 0 1 - Constitutional General appearance: Present: average body habitus - Respiratory Respiratory: bilateral: CTA - Cardiovascular Heart sounds: normal: S1, S2 - Gastrointestinal Gastrointestinal Comment(s): Dressings clean and dry General gastrointestinal: Present: decreased bowel sounds - Psychiatric Psychiatric: Present: A&O x's 3, appropriate affect, intact judgment & insight - Labs CBC & Chem 7: 06/24/16 07:53 06/24/16 07:53 Labs: Abnormal Lab Results - Last 24 Hours (Table) 06/23/16 06/23/16 06/23/16 Range/Units 13:12 17:22 21:58 Hgb (11.4-16.0) gm/dL MCHC (31.0-37.0) g/dL RDW (11.5-15.5) % Lymphocytes # (1.0-4.8) k/uL Sodium (137-145) mmol/L Potassium (3.5-5.1) mmol/L Chloride (98-107) mmol/L BUN (7-17) mg/dL Glucose (74-99) mg/dL POC Glucose (mg/dL) 113 H 132 H 142 H (75-99) mg/dL Total Protein (6.3-8.2) g/dL Albumin (3.5-5.0) g/dL Urine Appearance (Clear) Ur Specific [place] (1.001-1.035) Urine Protein (Negative) Urine Ketones (Negative) Ur Leukocyte Esterase (Negative) Urine RBC (0-5) /hpf Urine WBC (0-5) /hpf Urine Bacteria (None) /hpf Urine Mucus (None) /hpf 06/23/16 06/24/16 06/24/16 Range/Units 22:55 00:08 07:53 Hgb 11.1 L (11.4-16.0) gm/dL MCHC 30.3 L (31.0-37.0) g/dL RDW 16.7 H (11.5-15.5) % Lymphocytes # 0.5 L (1.0-4.8) k/uL Sodium (137-145) mmol/L Potassium (3.5-5.1) mmol/L Chloride (98-107) mmol/L BUN (7-17) mg/dL Glucose (74-99) mg/dL POC Glucose (mg/dL) 121 H (75-99) mg/dL Total Protein (6.3-8.2) g/dL Albumin (3.5-5.0) g/dL Urine Appearance Cloudy H (Clear) Ur Specific [place] 1.037 H (1.001-1.035) Urine Protein 1+ H (Negative) Urine Ketones 1+ H (Negative) Ur Leukocyte Esterase Large H (Negative) Urine RBC 10 H (0-5) /hpf Urine WBC 18 H (0-5) /hpf Urine Bacteria Rare H (None) /hpf Urine Mucus Rare H (None) /hpf 06/24/16 Range/Units 07:53 Hgb (11.4-16.0) gm/dL MCHC (31.0-37.0) g/dL RDW (11.5-15.5) % Lymphocytes # (1.0-4.8) k/uL Sodium 148 H (137-145) mmol/L Potassium 3.4 L (3.5-5.1) mmol/L Chloride 109 H (98-107) mmol/L BUN 34 H (7-17) mg/dL Glucose 107 H (74-99) mg/dL POC Glucose (mg/dL) (75-99) mg/dL Total Protein 6.0 L (6.3-8.2) g/dL Albumin 2.9 L (3.5-5.0) g/dL Urine Appearance (Clear) Ur Specific [place] (1.001-1.035) Urine Protein (Negative) Urine Ketones (Negative) Ur Leukocyte Esterase (Negative) Urine RBC (0-5) /hpf Urine WBC (0-5) /hpf Urine Bacteria (None) /hpf Urine Mucus (None) /hpf Assessment and Plan Plan: Impression/plan: 1. Postop day #1 reduction of incarcerated femoral hernia with hernia repair, small bowel resection 2. Cardiac disease including atrial fibrillation, sick sinus syndrome, mitral valve replacement 3. Diabetes 4. Osteoarthritis 5. Hypothyroidism Plan: 1. One cup of ice chips per shift 2. Up with assistance ambulating in the hallway 3. Medical care as per cardiology and medicine
--- NOTE | 2016-06-24 11:17 | P.PN ---
Subjective This is a pleasant 80-year-old female patient who follows regularly with a car body designer out of [facility]. She has a known history of complete heart block , proximal atrial fibrillation, nonischemic cardiomyopathy with severe LV dysfunction, chronic systolic heart failure, status post recent BiV AICD generator change, and hypertension. She originally presented to the emergency department with complaints of abdominal pain as well as nausea and vomiting that had been going on for at least 3 days. Patient was found to have a left inguinal hernia requiring emergent surgery for reduction and repair due to incarceration. Cardiology was asked to the patient in consult preoperatively as well as for recommendations regarding perioperative management of AICD. Upon examination this morning, patient is resting comfortably in bed. She does complain of some is incisional discomfort and NG tube remains in place. She denies complaints of chest discomfort, shortness of breath or dizziness. [facility] was contacted for postoperative interrogation of device. The patient's nurse spoke with the sales solutions representative who did not feel there would be any need for postoperative interrogation. The patient does have a follow-up visit for device interrogation at her primary car body designer's office within the next week or 2. Objective - Vital Signs Vital signs: Vital Signs Temp 97.8 F 06/24/16 07:00 Pulse 73 06/24/16 07:00 Resp 16 06/24/16 07:00 BP 127/60 06/24/16 07:00 Pulse Ox 95 06/24/16 07:00 Intake & Output 06/23/16 06/24/16 06/24/16 18:59 06:59 18:59 Intake Total 950 850 Output Total 1060 600 Balance -110 250 Weight 62 kg Intake: IV 950 150 ceFAZolin 1,000 mg In 50 Dextrose/Water 1 50ml.bag @ 100 mls/hr IVPB Q6HR [facility] Rx#:[id number] metroNIDAZOLE-NS PMX 500 100 mg In Saline 1 100ml.bag @ 100 mls/hr IVPB Q8HR [facility] Rx#:[id number] Intake, IV Titration 700 Amount Sodium Chloride 0.9% 1, 700 000 ml @ 100 mls/hr IV . Q10H [facility] Rx#:[id number] Oral 0 Output: Gastric Drainage 760 Urine 250 600 Uretheral (Wallace) 300 Estimated Blood Loss 50 Other: Voiding Method Bedpan Bedpan # Voids 0 1 - Exam PHYSICAL EXAMINATION: HEENT: Head is atraumatic, normocephalic. Pupils equal, round. Neck is supple. There is no elevated jugular venous pressure. HEART EXAMINATION: Heart sounds regular, S1 and S2 with a systolic murmur heard. CHEST EXAMINATION: Lungs are clear to auscultation and precussion. LAC incision , post-generator change, with Steri-Strips intact and mild to moderate semi- soft hematoma noted. ABDOMEN: Soft, tender, dressings and abdominal binder dry and intact. NG tube in place to low intermittent suction, no bowel sounds are heard.. EXTREMITIES: 2+ peripheral pulses with no evidence of peripheral edema and no calf tenderness noted. NEUROLOGIC patient is awake, alert and oriented x3. . - Labs CBC & Chem 7: 06/24/16 07:53 06/24/16 07:53 Labs: Abnormal Lab Results - Last 24 Hours (Table) 06/23/16 06/23/16 06/23/16 Range/Units 13:12 17:22 21:58 Hgb (11.4-16.0) gm/dL MCHC (31.0-37.0) g/dL RDW (11.5-15.5) % Lymphocytes # (1.0-4.8) k/uL Sodium (137-145) mmol/L Potassium (3.5-5.1) mmol/L Chloride (98-107) mmol/L BUN (7-17) mg/dL Glucose (74-99) mg/dL POC Glucose (mg/dL) 113 H 132 H 142 H (75-99) mg/dL Total Protein (6.3-8.2) g/dL Albumin (3.5-5.0) g/dL Urine Appearance (Clear) Ur Specific [place] (1.001-1.035) Urine Protein (Negative) Urine Ketones (Negative) Ur Leukocyte Esterase (Negative) Urine RBC (0-5) /hpf Urine WBC (0-5) /hpf Urine Bacteria (None) /hpf Urine Mucus (None) /hpf 06/23/16 06/24/16 06/24/16 Range/Units 22:55 00:08 07:53 Hgb 11.1 L (11.4-16.0) gm/dL MCHC 30.3 L (31.0-37.0) g/dL RDW 16.7 H (11.5-15.5) % Lymphocytes # 0.5 L (1.0-4.8) k/uL Sodium (137-145) mmol/L Potassium (3.5-5.1) mmol/L Chloride (98-107) mmol/L BUN (7-17) mg/dL Glucose (74-99) mg/dL POC Glucose (mg/dL) 121 H (75-99) mg/dL Total Protein (6.3-8.2) g/dL Albumin (3.5-5.0) g/dL Urine Appearance Cloudy H (Clear) Ur Specific [place] 1.037 H (1.001-1.035) Urine Protein 1+ H (Negative) Urine Ketones 1+ H (Negative) Ur Leukocyte Esterase Large H (Negative) Urine RBC 10 H (0-5) /hpf Urine WBC 18 H (0-5) /hpf Urine Bacteria Rare H (None) /hpf Urine Mucus Rare H (None) /hpf 06/24/16 Range/Units 07:53 Hgb (11.4-16.0) gm/dL MCHC (31.0-37.0) g/dL RDW (11.5-15.5) % Lymphocytes # (1.0-4.8) k/uL Sodium 148 H (137-145) mmol/L Potassium 3.4 L (3.5-5.1) mmol/L Chloride 109 H (98-107) mmol/L BUN 34 H (7-17) mg/dL Glucose 107 H (74-99) mg/dL POC Glucose (mg/dL) (75-99) mg/dL Total Protein 6.0 L (6.3-8.2) g/dL Albumin 2.9 L (3.5-5.0) g/dL Urine Appearance (Clear) Ur Specific [place] (1.001-1.035) Urine Protein (Negative) Urine Ketones (Negative) Ur Leukocyte Esterase (Negative) Urine RBC (0-5) /hpf Urine WBC (0-5) /hpf Urine Bacteria (None) /hpf Urine Mucus (None) /hpf Assessment and Plan Plan: Assessment and plan #1 Abdominal pain with evidence of incarcerated hernia #2 Chronic atrial fibrillation #3 Sick sinus syndrome, pacemaker dependent #4 hypertension #[address], s/p recent generator change #6 nonischemic cardiomyopathy with severe LV dysfunction, per notes from [place]'s #7 chronic systolic heart failure The patient was seen and examined this morning. She is clinically stable. Again, the patient will need to resume anticoagulation when okay with surgery. At this time we will continue to follow the patient on an as-needed basis. Please do not hesitate to call with questions. The above dictated assessment and findings were discussed with signing physician. The impression and plan of care have been directed as dictated. Nayely Guerrero, Nurse Practitioner, acting as scribe for signing physician.
--- NOTE | 2016-06-24 11:30 | ECHOF ---
Referral Reason:chf MEASUREMENTS -------- HEIGHT: 167.6 cm WEIGHT: 61.7 kg BP: 135/72 RVIDd: 3.0 cm (< 3.3) IVSd: 1.1 cm (0.6 - 1.1) LVIDd: 4.3 cm (3.9 - 5.3) LVPWd: 0.9 cm (0.6 - 1.1) IVSs: 1.4 cm LVIDs: 3.0 cm LVPWs: 1.5 cm LA Diam: 3.9 cm (2.7 - 3.8) Ao Diam: 2.2 cm (2.0 - 3.7) AV Cusp: 1.4 cm (1.5 - 2.6) LA Diam: 3.4 cm (2.7 - 3.8) MV EXCURSION: 9.024 mm (> 18.000) MV EF SLOPE: 23 mm/s (70 - 150) EPSS: 0.7 cm AR PHT: 589 ms RAP: 5.00 mmHg RVSP: 45.91 mmHg FINDINGS -------- Paced rhythm. Pacerwire seen in RV and RA. This was a technically adequate study. Left ventricular wall thickness is normal. Overall left ventricular systolic function is normal with, an EF between 55 - 60 %. The right ventricle is normal in size. The left atrium is mildly dilated. The right atrium is normal in size. Aortic valve is trileaflet and is mildly thickened. There is mild aortic regurgitation. The mitral valve leaflets are mildly thickened. Mild mitral annular calcification present. The peak and mean MV gradients are 18.21mmHg 8.95mmHg as measured by doppler. MV Repair. Mild tricuspid regurgitation present. There is mild pulmonary hypertension. The right ventricular systolic pressure, as measured by Doppler, is 45.91mmHg. Trace/mild (physiologic) pulmonic regurgitation. The aortic root size is normal. The pericardium is normal. CONCLUSIONS -------- 1. Paced rhythm. 2. There is mild aortic regurgitation. 3. The mitral valve leaflets are mildly thickened. 4. Mild mitral annular calcification present. 5. The peak and mean MV gradients are 18.21mmHg 8.95mmHg as measured by doppler. 6. MV Repair. 7. Mild tricuspid regurgitation present. 8. There is mild pulmonary hypertension. 9. The right ventricular systolic pressure, as measured by Doppler, is 45.91mmHg. 10. Trace/mild (physiologic) pulmonic regurgitation. 11. The aortic root size is normal. 12. Pacerwire seen in RV and RA. 13. The pericardium is normal. 14. This was a technically adequate study. 15. Left ventricular wall thickness is normal. 16. Overall left ventricular systolic function is normal with, an EF between 55 - 60 %. 17. The right ventricle is normal in size. 18. The left atrium is mildly dilated. 19. The right atrium is normal in size. 20. Aortic valve is trileaflet and is mildly thickened. LEAN COACH: David Wheeler RDCS
[2016-06-24 12:27] LABS: Glucose,Whole Blood 100 mg/dL (75-99)
[2016-06-24] MEDS: cefTRIAXone 2,000 MG in SODIUM CHLORIDE 0.9% 100 ML IVPB SCH (16:49)
[2016-06-24] MEDS: POTASSIUM CHLORIDE 20 MEQ, LIDOCAINE 2% INJ 20 MG in SODIUM CHLORIDE 0.9% 100 ML IVPB SCH ×3 (18:02→23:45)
[2016-06-24] MEDS ORDERED: diphenhydrAMINE 50 MG/ML 1 ML VIAL IVP PRN (20:56)
[2016-06-24] MEDS: WARFARIN 3 MG TAB PO SCH (21:15)
[2016-06-24] MEDS ORDERED: POTASSIUM CHLORIDE 20 MEQ, LIDOCAINE 2% INJ 20 MG in SODIUM CHLORIDE 0.9% 100 ML IVPB ONE (23:00)
[2016-06-25] MEDS: KETOROLAC 30 MG/ML 1 ML VIAL IVP PRN ×2 (00:56→07:46)
[2016-06-25] MEDS: metroNIDAZOLE-NS PMX 500 MG in SALINE 1 100ML.BAG IVPB SCH ×3 (00:59→16:52)
[2016-06-25] MEDS: INSULIN LISPRO (humaLOG) 300 UNIT/3 ML VIAL SQ SCH ×4 (01:07→16:55)
[2016-06-25 01:08] LABS: Glucose,Whole Blood 75 mg/dL (75-99)
[2016-06-25] MEDS: LEVOTHYROXINE 25 MCG TAB PO SCH (05:36)
[2016-06-25 05:46] LABS: Glucose,Whole Blood 78 mg/dL (75-99)
[2016-06-25] MEDS: SODIUM CHLORIDE 0.9% 1,000 ML IV SCH (07:50)
[2016-06-25] MEDS: HEPARIN SODIUM,PORCINE 5,000 UNIT/ML 1 ML VIAL SQ SCH ×2 (08:08→16:54)
[2016-06-25] MEDS: PANTOPRAZOLE 40 MG/10 ML VIAL IV SCH (08:08)
[2016-06-25] MEDS: ASPIRIN 81 MG CHEW PO SCH (08:08)
[2016-06-25] MEDS: METOPROLOL TARTRATE 25 MG TAB PO SCH ×2 (08:09→21:28)
[2016-06-25] MEDS: GABAPENTIN 100 MG CAP PO SCH ×3 (08:09→21:28)
--- NOTE | 2016-06-25 08:47 | P.PN ---
Subjective Mrs. Peres is an 80-year-old white female who is status post reduction of an incarcerated femoral hernia which was resulting in small bowel obstruction. She additionally had repair of the hernia and small bowel resection for area of questionable viability. She is postop day #2. She is passing flatus at this time. She evidently had some confusion which was felt to be related to the morphine and was changed to Toradol for pain medication. She is not complaining of any incisional or abdominal pain. She has some chronic back pain. NG tube was approximately 100 mL since last night. Urine output is adequate. Laboratory studies are pending. Objective - Vital Signs Vital signs: Vital Signs Temp 97.7 F 06/25/16 07:00 Pulse 70 06/25/16 07:00 Resp 18 06/25/16 07:00 BP 157/79 06/25/16 07:00 Pulse Ox 96 06/25/16 07:00 Intake & Output 06/24/16 06/25/16 06/25/16 18:59 06:59 18:59 Intake Total 400 1300 Output Total 250 300 200 Balance 150 1000 -200 Weight 61.5 kg Intake: IV 400 1100 Sodium Chloride 0.9% 1, 400 1000 000 ml @ 100 mls/hr IV . Q10H [facility] Rx#:[id number] metroNIDAZOLE-NS PMX 500 100 mg In Saline 1 100ml.bag @ 100 mls/hr IVPB Q8HR [facility] Rx#:[id number] Intake, IV Titration 200 Amount Potassium Chloride 20 meq 200 Lidocaine 2% Inj 20 mg In Sodium Chloride 0.9% 100 ml @ 55.5 mls/hr IVPB ONCE ONE Rx#:[id number] Output: Gastric Drainage 250 Urine 300 200 Other: Voiding Method Bedside Commode # Voids 1 1 - Constitutional General appearance: Present: average body habitus - Respiratory Details: Decreased breath sounds at the bases - Cardiovascular Heart sounds: normal: S1, S2 - Gastrointestinal Gastrointestinal Comment(s): Incisions clean and dry General gastrointestinal: Present: normal bowel sounds - Psychiatric Psychiatric: Present: A&O x's 3, appropriate affect, intact judgment & insight - Labs CBC & Chem 7: 06/24/16 07:53 06/24/16 07:53 Labs: Abnormal Lab Results - Last 24 Hours (Table) 06/24/16 Range/Units 12:21 POC Glucose (mg/dL) 100 H (75-99) mg/dL Assessment and Plan Plan: Impression/plan: 1. Postop day #2 reduction of incarcerated femoral hernia with hernia repair, small bowel resection 2. Cardiac disease including atrial fibrillation, sick sinus syndrome, mitral valve replacement 3. Diabetes 4. Osteoarthritis 5. Hypothyroidism 6. Patient passing flatus Plan: 1. We'll clamp NG tube if tolerates will DC 2. Up with assistance ambulating in the hallway 3. Medical care as per cardiology and medicine 4. Await a.m. labs, depending on hemoglobin may start Lovenox today
[2016-06-25 09:05] LABS: Anisocytosis Slight; Basophils % (A) 0 %; CH 26.7; Eosinophils # (A) 0.2 k/uL (0-0.7); Eosinophils % (A) 2 %; HCT 41.8 % (34.0-46.0); HDW 2.51; HGB 12.1 gm/dL (11.4-16.0); Hypochromasia Marked; Luc # (Auto) 0.12; Luc % (Auto) 1; Lymphocytes # (A) 0.5 k/uL (1.0-4.8); Lymphocytes % (A) 6 %; MCH 27.6 pg (25.0-35.0); MCHC 28.9 g/dL (31.0-37.0); MCV 95.5 fL (80.0-100.0); Mean Platelet Volume 6.8; Monocytes # (A) 0.5 k/uL (0-1.0); Monocytes % (A) 5 %; Neutrophils % (A) 86 %; RBC 4.38 m/uL (3.80-5.40); RDW 16.1 % (11.5-15.5); WBC 9.3 k/uL (3.8-10.6); WBC (Perox) 9.67
[2016-06-25 09:18] LABS: INR 1.3 (<1.1)
[2016-06-25 09:20] LABS: Calcium 9.1 mg/dL (8.4-10.2); Chloride 116 mmol/L (98-107); Potassium 4.4 mmol/L (3.5-5.1); Sodium 153 mmol/L (137-145)
[2016-06-25 09:21] LABS: Anion Gap 17 mmol/L; Blood Urea Nitrogen 36 mg/dL (7-17); Carbon Dioxide 20 mmol/L (22-30); Glucose 75 mg/dL (74-99); Non-African American GFR(MDRD) >60 (>60 ml/min/1.73 sqM)
--- NOTE | 2016-06-25 10:31 | CONS ---
DATE OF CONSULTATION: 06/24/2016 Reason for consultation is incarcerated bowel and antibiotic recommendation. HISTORY OF PRESENT ILLNESS: The patient is an 80-year-old female who presented to the ER 06/23/2016 with chief complaints of abdominal pain and vomiting that has been going on for 2 to 3 days prior to presentation to the hospital. Pain has been in lower abdominal area. She describes the pain to be more of crampy in nature and 6 out of 10 and no radiation, associated with nausea and vomiting. No significant diarrhea or constipation. Some chills with no high-grade fever. Subsequently patient has been evaluated by the ER physician. The patient did have CT of abdomen and pelvis with evidence of left inguinal incarcerated hernia. The patient was evaluated by Dr. Morocho. She has been taken to the OR. The was noted to have incarcerated left groin hernia with small bowel obstruction. The patient did have left groin exploration with reduction of the incarcerated femoral midline lower abdominal laparotomy to reduce the incarcerated hernia and small bowel resection with primary anastomosis and repair of left femoral groin hernia. Patient subsequently has been started on cefazolin and Flagyl. ID was asked to see the patient for further recommendation regarding antibiotic therapy. Of note, no cultures had been collected as apparently there was no leakage. The patient did have elevated white count of 16.4 and that has improved and no fever has been recorded at the hospital. REVIEW OF SYSTEMS: CONSTITUTIONAL: Positive for weakness, some chills. EYES: No complaint. ENT: No complaint. RESPIRATORY: No complaint. CARDIOVASCULAR: No complaint. GENITOURINARY: No complaint. GASTROINTESTINAL: As per HPI. MUSCULOSKELETAL: No complaint. INTEGUMENTARY: No complaint. PSYCHOLOGIC: No complaint. ENDOCRINE: No complaint. NEUROLOGIC: No complaint. PAST MEDICAL HISTORY: Significant for diabetes mellitus, hypertension, asthma, heart failure. PAST SURGICAL HISTORY: Cholecystectomy, AICD placement, mitral valve surgery. SOCIAL HISTORY: No history of smoking, drinking or drug use. FAMILY HISTORY: No pertinent findings were noticed. ALLERGIES: AMOXICILLIN. She was not sure about the reaction. Also allergic to CIPROFLOXACIN and SULFA. Medications currently include the patient is on cefazolin 2 grams q.8 hours along with Flagyl. She is on aspirin, Neurontin, heparin, Humalog, Toradol, Synthroid, melatonin, Lopressor, Narcan, Zofran, Protonix, Coumadin. On examination, her blood pressure is 138/54 with a pulse of 78, temperature 97.1. She is 90% on room air. General description is an elderly female lying in bed in no distress. No tachypnea or accessory muscle of respiration use. HEENT examination shows pallor. There is no scleral icterus. Oral mucous membrane is dry. NECK: Trachea central. There is no thyromegaly. LUNGS: Unlabored breathing. Clear to auscultation anteriorly. HEART: S1, S2 regular rate and rhythm. ABDOMEN: Soft. Incision currently looks clean. Slightly tender to touch. EXTREMITIES: No edema of the feet. SKIN EXAMINATION: No rash or mass palpable. NEUROLOGICAL: Patient is awake, alert, oriented x3. Mood and affect normal. LABS: Hemoglobin is 11.1, white count 8.4, yesterday white count was 16,000 with a BUN of 34, creatinine 0.78 and electrolytes have been normal. Urine was slightly cloudy. DIAGNOSTIC IMPRESSION AND PLAN: 1. Patient with admission to hospital with abdominal pain. She went to have incarcerated small bowel and left inguinal hernia for which the patient did have laparotomy with resection of the bowel and repair of the hernia. The likely organism need to cover will be enteric gram-negative both aerobes and anaerobes. 2. Patient does have multiple antibiotic allergies that does limit the number of antibiotics that can be safely used. History of amoxicillin allergy, though has tolerated cephalosporins without any problem. PLAN: 1. We will discontinue cefazolin and start the patient on Rocephin 2 grams daily for better coverage of the gram-negative and continue the Flagyl. 2. Will follow up on clinical condition and cultures to further adjust the medication if needed. Thank you for this consultation. We will follow this patient along with you. JOSE
[2016-06-25 11:50] LABS: Glucose,Whole Blood 73 mg/dL (75-99)
--- NOTE | 2016-06-25 11:53 | PN ---
DATE OF SERVICE: 06/25/2016 An 80-year-old lady with history of cardiomyopathy, AICD, mitral valve repair, is admitted to hospital with bowel obstruction and underwent surgery for the same. She is feeling much better. Her bowel sounds have come back. The NG-tube may come out later today. She seems somewhat and the sodium had gone up. I spoke to Dr. Martinez, the hospitalist managing the patient, to address fluid status. From my standpoint, I am going to put her on IV heparin at this time, stop the subcu heparin, give her a dose of Coumadin this evening if the NG tube comes out. I asked Dr. Martinez to dose the Coumadin tomorrow. On exam, she is comfortable at rest. Vital signs are stable. Chest exam reveals good air entry bilaterally. Heart exam reveals first and second heart sounds. No gallop. Exam of extremities did not reveal any edema. Abdomen is status post surgery. Labs have been reviewed. Hemoglobin is normal. Platelet count is normal. BUN is elevated as is the creatinine at 1.6. ASSESSMENT AND PLAN: 1. History of atrial fibrillation. 2. History of mitral valve repair. 3. Cardiomyopathy, status post AICD. 4. Bowel obstruction, status post surgery. PLAN: I will start her on heparin. Resume the Coumadin. Dr. Martinez will address Coumadin and heparin issues going forward. I spoke to him. We are going to see her on an as-needed basis at this time.
[2016-06-25] MEDS: SODIUM CHLORIDE 0.45% 1,000 ML IV SCH (12:16)
[2016-06-25] MEDS: HYDROcodone/APAP 5-325MG 1 EACH TAB PO PRN ×2 (13:01→18:03)
[2016-06-25 16:56] LABS: Glucose,Whole Blood 74 mg/dL (75-99)
[2016-06-25] MEDS: cefTRIAXone 2,000 MG in SODIUM CHLORIDE 0.9% 100 ML IVPB SCH (17:58)
[2016-06-25] MEDS ORDERED: WARFARIN 3 MG TAB PO ONE (19:00)
--- NOTE | 2016-06-25 20:17 | P.PN ---
Subjective Date of service 06/24/2016 Progress note being dictated for Dr. Hubbard Interval history: This is an 80-year-old female admitted with incarcerated ventral hernia status post reduction of incarcerated femoral hernia with hernia repair, and multiple other medical issues. Postop day #1, Doing well. Incentive spirometer up to 1500. Ambulating in room,tolerating increase in exertion. Current hemoglobin 11.1, leukocytosis resolved, currently 8.4. Hypokalemic , 3.4. Mild incisional pain. Denies chest pain, palpitations or increasing shortness of breath. Objective - Vital Signs Vital signs: Vital Signs Temp 97.1 F L 06/24/16 14:55 Pulse 70 06/24/16 14:55 Resp 16 06/24/16 14:55 BP 138/64 06/24/16 14:55 Pulse Ox 90 L 06/24/16 14:55 Intake & Output 06/23/16 06/24/16 06/24/16 18:59 06:59 18:59 Intake Total 950 850 400 Output Total 1060 600 Balance -110 250 400 Weight 62 kg Intake: IV 950 150 400 Sodium Chloride 0.9% 1, 400 000 ml @ 100 mls/hr IV . Q10H [facility] Rx#:[id number] ceFAZolin 1,000 mg In 50 Dextrose/Water 1 50ml.bag @ 100 mls/hr IVPB Q6HR [facility] Rx#:[id number] metroNIDAZOLE-NS PMX 500 100 mg In Saline 1 100ml.bag @ 100 mls/hr IVPB Q8HR [facility] Rx#:[id number] Intake, IV Titration 700 Amount Sodium Chloride 0.9% 1, 700 000 ml @ 100 mls/hr IV . Q10H [facility] Rx#:[id number] Oral 0 Output: Gastric Drainage 760 Urine 250 600 Uretheral (Wall[place]) 300 Estimated Blood Loss 50 Other: Voiding Method Bedpan Bedpan Bedside Commode # Voids 0 1 - Exam PHYSICAL EXAM: VITAL SIGNS: As above GENERAL: [Sitting up in bed, no acute distress] HEENT: [Pupils equal conjunctiva normal NG tube present.] NECK: [Supple, no JVD] RESPIRATORY EFFORT:[Normal] LUNGS: [Essentially clear, recent generator change site, moderate hematoma present with Steri-Strips] CARDIOVASCULAR[regular S1 and S2, positive systolic murmur, no edema] GI: [Abdomen soft, status post surgery, dressing clean dry and intact, abdominal binder present, no bowel sounds.] PSYCH: [Alert and oriented -3, mood and affect normal.] NEURO: No focal deficits, moves all 4 extremities - Labs CBC & Chem 7: 06/25/16 08:01 06/25/16 08:01 Labs: Abnormal Lab Results - Last 24 Hours (Table) 06/23/16 06/23/16 06/23/16 Range/Units 17:22 21:58 22:55 Hgb (11.4-16.0) gm/dL MCHC (31.0-37.0) g/dL RDW (11.5-15.5) % Lymphocytes # (1.0-4.8) k/uL Sodium (137-145) mmol/L Potassium (3.5-5.1) mmol/L Chloride (98-107) mmol/L BUN (7-17) mg/dL Glucose (74-99) mg/dL POC Glucose (mg/dL) 132 H 142 H (75-99) mg/dL Total Protein (6.3-8.2) g/dL Albumin (3.5-5.0) g/dL Urine Appearance Cloudy H (Clear) Ur Specific [place] 1.037 H (1.001-1.035) Urine Protein 1+ H (Negative) Urine Ketones 1+ H (Negative) Ur Leukocyte Esterase Large H (Negative) Urine RBC 10 H (0-5) /hpf Urine WBC 18 H (0-5) /hpf Urine Bacteria Rare H (None) /hpf Urine Mucus Rare H (None) /hpf 06/24/16 06/24/16 06/24/16 Range/Units 00:08 07:53 07:53 Hgb 11.1 L (11.4-16.0) gm/dL MCHC 30.3 L (31.0-37.0) g/dL RDW 16.7 H (11.5-15.5) % Lymphocytes # 0.5 L (1.0-4.8) k/uL Sodium 148 H (137-145) mmol/L Potassium 3.4 L (3.5-5.1) mmol/L Chloride 109 H (98-107) mmol/L BUN 34 H (7-17) mg/dL Glucose 107 H (74-99) mg/dL POC Glucose (mg/dL) 121 H (75-99) mg/dL Total Protein 6.0 L (6.3-8.2) g/dL Albumin 2.9 L (3.5-5.0) g/dL Urine Appearance (Clear) Ur Specific [place] (1.001-1.035) Urine Protein (Negative) Urine Ketones (Negative) Ur Leukocyte Esterase (Negative) Urine RBC (0-5) /hpf Urine WBC (0-5) /hpf Urine Bacteria (None) /hpf Urine Mucus (None) /hpf 06/24/16 Range/Units 12:21 Hgb (11.4-16.0) gm/dL MCHC (31.0-37.0) g/dL RDW (11.5-15.5) % Lymphocytes # (1.0-4.8) k/uL Sodium (137-145) mmol/L Potassium (3.5-5.1) mmol/L Chloride (98-107) mmol/L BUN (7-17) mg/dL Glucose (74-99) mg/dL POC Glucose (mg/dL) 100 H (75-99) mg/dL Total Protein (6.3-8.2) g/dL Albumin (3.5-5.0) g/dL Urine Appearance (Clear) Ur Specific [place] (1.001-1.035) Urine Protein (Negative) Urine Ketones (Negative) Ur Leukocyte Esterase (Negative) Urine RBC (0-5) /hpf Urine WBC (0-5) /hpf Urine Bacteria (None) /hpf Urine Mucus (None) /hpf Assessment and Plan Plan: 1. Incarcerated ventral hernia status post reduction of incarcerated femoral hernia with hernia repair, small bowel resection. 2. [Chronic atrial fibrillation,] with history of sick sinus syndrome with recent AICD generator change. 3. [Hypertension]. 4. [Diabetes mellitus]. 5. [Osteoarthritis]. 6. [Hypothyroidism]. 7. [Chronic systolic heart failure]. 8. Non-ischemic cardiomyopathy with severe LV dysfunction 9. Hypernatremia Plan: Continue on current medication regime ,monitoring and symptomatic treatment. IV fluids to be changed to 0.45 normal saline.potassium supplements ordered .Aggressive pulmonary toileting. Anticoagulation currently on hold, cardiology discussing initiating IV heparin with surgery. GI prophylaxis in place. Beta dee to be resumed once NG tube discontinued and tolerating oral medication. The impression and plan of care has been dictated as directed. : I performed a H&P examination of this patient and discussed the same with the dictator. I agree with the dictator's note. Any additional findings/opinions/ etc. will be noted.
[2016-06-26 00:07] LABS: Glucose,Whole Blood 77 mg/dL (75-99)
[2016-06-26] MEDS: INSULIN LISPRO (humaLOG) 300 UNIT/3 ML VIAL SQ SCH ×4 (00:12→17:18)
[2016-06-26] MEDS: HEPARIN SODIUM,PORCINE 5,000 UNIT/ML 1 ML VIAL SQ SCH ×3 (00:25→17:20)
[2016-06-26] MEDS: HYDROcodone/APAP 5-325MG 1 EACH TAB PO PRN ×4 (00:39→18:31)
[2016-06-26 05:12] LABS: Glucose,Whole Blood 75 mg/dL (75-99)
[2016-06-26] MEDS: LEVOTHYROXINE 25 MCG TAB PO SCH (05:45)
[2016-06-26] MEDS: SODIUM CHLORIDE 0.45% 1,000 ML IV SCH (05:50)
[2016-06-26 08:58] LABS: INR 1.4 (<1.1); Prothrombin Time 13.7 sec (9.0-12.0)
[2016-06-26 09:03] LABS: Anion Gap 11 mmol/L; Blood Urea Nitrogen 25 mg/dL (7-17); Calcium 8.6 mg/dL (8.4-10.2); Carbon Dioxide 20 mmol/L (22-30); Chloride 113 mmol/L (98-107); Glucose 72 mg/dL (74-99); Non-African American GFR(MDRD) >60 (>60 ml/min/1.73 sqM); Sodium 144 mmol/L (137-145)
[2016-06-26] MEDS: ASPIRIN 81 MG CHEW PO SCH (09:03)
[2016-06-26] MEDS: METOPROLOL TARTRATE 25 MG TAB PO SCH ×2 (09:03→22:04)
[2016-06-26] MEDS: GABAPENTIN 100 MG CAP PO SCH ×3 (09:03→22:04)
[2016-06-26] MEDS: PANTOPRAZOLE 40 MG/10 ML VIAL IV SCH (09:03)
[2016-06-26 09:20] LABS: Anisocytosis Slight; Basophils % (A) 0 %; CH 27.7; CHCM 29.2; Eosinophils # (A) 0.3 k/uL (0-0.7); Eosinophils % (A) 3 %; HCT 37.7 % (34.0-46.0); HDW 2.58; HGB 10.9 gm/dL (11.4-16.0); Hypochromasia Marked; Luc # (Auto) 0.08; Luc % (Auto) 1; Lymphocytes # (A) 0.6 k/uL (1.0-4.8); Lymphocytes % (A) 6 %; MCH 27.6 pg (25.0-35.0); MCHC 28.9 g/dL (31.0-37.0); MCV 95.3 fL (80.0-100.0); Mean Platelet Volume 8.2; Monocytes # (A) 0.5 k/uL (0-1.0); Monocytes % (A) 5 %; Neutrophils # (A) 7.7 k/uL (1.3-7.7); Neutrophils % (A) 85 %; RBC 3.95 m/uL (3.80-5.40); RDW 16.7 % (11.5-15.5); WBC 9.1 k/uL (3.8-10.6); WBC (Perox) 9.57
--- NOTE | 2016-06-26 09:23 | P.PN ---
Subjective Mrs. Peres is an 80-year-old white female who is status post reduction of an incarcerated femoral hernia which was resulting in small bowel obstruction. She additionally had repair of the hernia and small bowel resection for area of questionable viability. She is postop day #3. She is passing flatus at this time, and this had a bowel movement. She is not complaining of any incisional or abdominal pain. She has some chronic back pain. NG tube is been removed and she is tolerating this being removed. We'll plan to advance diet today. Patient has been started on Coumadin as per cardiology. Objective - Vital Signs Vital signs: Vital Signs Temp 98.0 F 06/26/16 07:00 Pulse 70 06/26/16 07:00 Resp 18 06/26/16 07:00 BP 160/71 06/26/16 07:00 Pulse Ox 94 L 06/26/16 07:00 Intake & Output 06/25/16 06/26/16 06/26/16 18:59 06:59 18:59 Intake Total 0 Output Total 200 Balance -200 0 Weight 64.5 kg Intake: Oral 0 Output: Urine 200 Other: # Voids 3 1 # Bowel Movements 1 - Constitutional General appearance: Present: average body habitus - Respiratory Respiratory: bilateral: CTA - Cardiovascular Rhythm: regular Heart sounds: normal: S1, S2 - Gastrointestinal Gastrointestinal Comment(s): Incisions clean and dry General gastrointestinal: Present: normal bowel sounds - Psychiatric Psychiatric: Present: A&O x's 3, appropriate affect, intact judgment & insight - Labs CBC & Chem 7: 06/25/16 08:01 06/26/16 07:46 Labs: Abnormal Lab Results - Last 24 Hours (Table) 06/25/16 06/25/16 06/25/16 Range/Units 08:01 11:48 16:54 PT (9.0-12.0) sec Sodium 153 H (137-145) mmol/L Chloride 116 H (98-107) mmol/L Carbon Dioxide 20 L (22-30) mmol/L BUN 36 H (7-17) mg/dL Glucose (74-99) mg/dL POC Glucose (mg/dL) 73 L 74 L (75-99) mg/dL 06/26/16 06/26/16 Range/Units 07:46 07:46 PT 13.7 H (9.0-12.0) sec Sodium (137-145) mmol/L Chloride 113 H (98-107) mmol/L Carbon Dioxide 20 L (22-30) mmol/L BUN 25 H (7-17) mg/dL Glucose 72 L (74-99) mg/dL POC Glucose (mg/dL) (75-99) mg/dL Assessment and Plan Plan: Impression/plan: 1. Postop day #3reduction of incarcerated femoral hernia with hernia repair, small bowel resection 2. Cardiac disease including atrial fibrillation, sick sinus syndrome, mitral valve replacement 3. Diabetes 4. Osteoarthritis 5. Hypothyroidism 6. Patient has had a bowel movement Plan: 1. Patient tolerating removal of NG tube will advance diet 2. Up with assistance ambulating in the hallway 3. Medical care as per cardiology and medicine 4. Patient started on Coumadin
--- NOTE | 2016-06-26 10:18 | PN ---
DATE OF SERVICE: 06/25/2016 Reason for follow-up is incarcerated hernia, status post surgery. INTERVAL HISTORY: The patient is afebrile. Her NG has been discontinued. The patient did have a bowel movement. Denies any chest pain or shortness of breath or cough. No significant abdominal pain. On examination, her blood pressure is 152/76 with a pulse of 70, temperature 98.2. She is 94% on room air. General description is an elderly female lying in bed in no distress. RESPIRATORY SYSTEM: Unlabored breathing. Clear to auscultation anteriorly. HEART: S1, S2 regular rate and rhythm. ABDOMEN: Soft. EXTREMITIES: No edema of feet. LABS: Hemoglobin 12.1, white count 9.3 with a BUN of 36, creatinine 0.76. DIAGNOSTIC IMPRESSION AND PLAN: Patient with an incarcerated left femoral hernia, status post reduction and resection of the incarcerated bowel. Patient responded to Rocephin and Flagyl. As the patient continues to improve, plan to finish therapy with p.o. Ceftin 500 mg twice a day along with Flagyl 500 mg three times a day for another 7 to 10 days. Family was present at beside. Their questions and concerns were answered.
[2016-06-26 11:03] LABS: Glucose,Whole Blood 110 mg/dL (75-99)
--- NOTE | 2016-06-26 11:42 | PN ---
DATE OF SERVICE: 06/25/2016 This 80-year-old woman who was admitting after incarcerated ventral hernia surgery. The patient also had elevated sodium. I have seen and evaluated the patient with the nurse practitioner. Please refer to the nurse practitioner's notes and impressions documented as scribe for further information. Guarded prognosis. Further recommendations to follow.
[2016-06-26 12:29] VITALS: BMI 22.9
--- NOTE | 2016-06-26 14:00 | P.PN ---
Subjective Date of service 06/25/2016 Progress note being dictated for Dr. Hernandez Interval history: This is an 80-year-old female admitted with incarcerated ventral hernia status post reduction of incarcerated femoral hernia with hernia repair, and multiple other medical issues. Postop day #2, continues to do well. No further output from NG tube .NG tube to be clamped for 4 hours, if less than 100 MLS of drainage, surgery has ordered for NG tube to be discontinued. Incisional discomfort controlled .Incentive spirometer up to 1500. Potassium supplemented yesterday and now normalized .Hypernatremic, with IV fluids being changed. Ambulating in room,tolerating increase in exertion. Current hemoglobin 12.1. Afebrile. Denies chest pain, palpitations or increasing shortness of breath. Objective - Vital Signs Vital signs: Vital Signs Temp 98.2 F 06/25/16 14:37 Pulse 72 06/25/16 14:37 Resp 20 06/25/16 16:00 BP 152/76 06/25/16 14:37 Pulse Ox 94 L 06/25/16 14:37 Intake & Output 06/24/16 06/25/16 06/25/16 18:59 06:59 18:59 Intake Total 400 1300 Output Total 250 300 200 Balance 150 1000 -200 Weight 61.5 kg Intake: IV 400 1100 Sodium Chloride 0.9% 1, 400 1000 000 ml @ 100 mls/hr IV . Q10H [facility] Rx#:[id number] metroNIDAZOLE-NS PMX 500 100 mg In Saline 1 100ml.bag @ 100 mls/hr IVPB Q8HR [facility] Rx#:[id number] Intake, IV Titration 200 Amount Potassium Chloride 20 meq 200 Lidocaine 2% Inj 20 mg In Sodium Chloride 0.9% 100 ml @ 55.5 mls/hr IVPB ONCE ONE Rx#:[id number] Output: Gastric Drainage 250 Urine 300 200 Other: Voiding Method Bedside Commode # Voids 1 3 # Bowel Movements 1 - Exam PHYSICAL EXAM: VITAL SIGNS: As above GENERAL: [Sitting up in bed, no acute distress] HEENT: [Pupils equal conjunctiva normal NG tube present.] NECK: [Supple, no JVD] RESPIRATORY EFFORT:[Normal] LUNGS: [Essentially clear, recent generator change site, hematoma present with Steri-Strips] CARDIOVASCULAR[regular S1 and S2, positive systolic murmur, no edema] GI: [Abdomen soft, status post surgery, dressing clean dry and intact, abdominal binder present, hypoactive bowel sounds.] PSYCH: [Alert and oriented -3, mood and affect normal.] NEURO: No focal deficits, moves all 4 extremities - Labs CBC & Chem 7: 06/26/16 07:46 06/26/16 07:46 Labs: Abnormal Lab Results - Last 24 Hours (Table) 06/25/16 06/25/16 06/25/16 Range/Units 08:01 08:01 08:01 MCHC 28.9 L (31.0-37.0) g/dL RDW 16.1 H (11.5-15.5) % Neutrophils # 8.0 H (1.3-7.7) k/uL Lymphocytes # 0.5 L (1.0-4.8) k/uL PT 13.0 H (9.0-12.0) sec Sodium 153 H (137-145) mmol/L Chloride 116 H (98-107) mmol/L Carbon Dioxide 20 L (22-30) mmol/L BUN 36 H (7-17) mg/dL POC Glucose (mg/dL) (75-99) mg/dL 06/25/16 06/25/16 Range/Units 11:48 16:54 MCHC (31.0-37.0) g/dL RDW (11.5-15.5) % Neutrophils # (1.3-7.7) k/uL Lymphocytes # (1.0-4.8) k/uL PT (9.0-12.0) sec Sodium (137-145) mmol/L Chloride (98-107) mmol/L Carbon Dioxide (22-30) mmol/L BUN (7-17) mg/dL POC Glucose (mg/dL) 73 L 74 L (75-99) mg/dL Assessment and Plan Plan: 1. Incarcerated ventral hernia status post reduction of incarcerated femoral hernia with hernia repair, small bowel resection. 2. [Chronic atrial fibrillation,] with history of sick sinus syndrome with recent AICD generator change. 3. [Hypertension]. 4. [Diabetes mellitus]. 5. [Osteoarthritis]. 6. [Hypothyroidism]. 7. [Chronic systolic heart failure]. 8. Non-ischemic cardiomyopathy with severe LV dysfunction 9. Hypernatremia 10. Coumadin monitoring Plan: Continue on current medication regime ,monitoring and symptomatic treatment. Possible DC the NG tube pending, NG tube currently clamped. IV fluids to be changed to 0.45 normal saline. Close monitoring of chloride and sodium with repeat labs in a.m. Aggressive pulmonary toileting. Daily PT/INR, Coumadin 3 mg tonight. GI prophylaxis in place. The impression and plan of care has been dictated as directed. : I performed a H&P examination of this patient and discussed the same with the dictator. I agree with the dictator's note. Any additional findings/opinions/ etc. will be noted.
--- NOTE | 2016-06-26 17:02 | P.PN ---
Subjective Date of service 06/26/2016 Progress note being dictated for Dr. Hernandez Interval history: This is an 80-year-old female admitted with incarcerated ventral hernia status post reduction of incarcerated femoral hernia with hernia repair, and multiple other medical issues. NG tube discontinued yesterday. Passing flatus, no bowel movement, positive bowel sounds. Denies nausea or vomiting. Diet advanced to clear liquids per surgery, tolerating well .ambulating in hallway, tolerating increase in exertion. Denies lightheadedness dizziness. INR 1.4, received Coumadin last night. Denies chest pain, palpitations or increasing shortness of breath. IV fluids changed with sodium normalized and chloride improved. Objective - Vital Signs Vital signs: Vital Signs Temp 97.2 F L 06/26/16 15:00 Pulse 72 06/26/16 15:00 Resp 20 06/26/16 15:00 BP 155/77 06/26/16 15:00 Pulse Ox 95 06/26/16 15:00 Intake & Output 06/25/16 06/26/16 06/26/16 18:59 06:59 18:59 Intake Total 0 480 Output Total 200 Balance -200 0 480 Weight 64.5 kg 64.5 kg Intake: Oral 0 480 Output: Urine 200 Other: # Voids 3 1 3 # Bowel Movements 1 - Exam PHYSICAL EXAM: VITAL SIGNS: As above GENERAL: [Sitting up in bed, no acute distress] HEENT: [Pupils equal conjunctiva normal.] NECK: [Supple, no JVD] RESPIRATORY EFFORT:[Normal] LUNGS: [Essentially clear, recent generator change site, hematoma present with Steri-Strips] CARDIOVASCULAR[regular S1 and S2, positive systolic murmur, no edema] GI: [Abdomen soft, status post surgery, dressing clean dry and intact, abdominal binder present, positive bowel sounds.] PSYCH: [Alert and oriented -3, mood and affect normal.] NEURO: No focal deficits, moves all 4 extremities, strength and sensation grossly intact - Labs CBC & Chem 7: 06/26/16 07:46 06/26/16 07:46 Labs: Abnormal Lab Results - Last 24 Hours (Table) 06/25/16 06/26/16 06/26/16 Range/Units 16:54 07:46 07:46 Hgb (11.4-16.0) gm/dL MCHC (31.0-37.0) g/dL RDW (11.5-15.5) % Lymphocytes # (1.0-4.8) k/uL PT 13.7 H (9.0-12.0) sec Chloride 113 H (98-107) mmol/L Carbon Dioxide 20 L (22-30) mmol/L BUN 25 H (7-17) mg/dL Glucose 72 L (74-99) mg/dL POC Glucose (mg/dL) 74 L (75-99) mg/dL 06/26/16 06/26/16 Range/Units 07:46 10:58 Hgb 10.9 L (11.4-16.0) gm/dL MCHC 28.9 L (31.0-37.0) g/dL RDW 16.7 H (11.5-15.5) % Lymphocytes # 0.6 L (1.0-4.8) k/uL PT (9.0-12.0) sec Chloride (98-107) mmol/L Carbon Dioxide (22-30) mmol/L BUN (7-17) mg/dL Glucose (74-99) mg/dL POC Glucose (mg/dL) 110 H (75-99) mg/dL Assessment and Plan Plan: 1. Incarcerated ventral hernia status post reduction of incarcerated femoral hernia with hernia repair, small bowel resection. 2. [Chronic atrial fibrillation,] with history of sick sinus syndrome with recent AICD generator change. 3. [Hypertension]. 4. [Diabetes mellitus]. 5. [Osteoarthritis]. 6. [Hypothyroidism]. 7. [Chronic systolic heart failure]. 8. Non-ischemic cardiomyopathy with severe LV dysfunction 9. Hypernatremia 10. Coumadin monitoring Plan: Continue on current medication regime ,monitoring and symptomatic treatment. Diet advancement as per surgery. Aggressive pulmonary toileting. Daily PT/INR, Coumadin 3 mg tonight. GI prophylaxis in place. Increase ambulation as tolerated. The impression and plan of care has been dictated as directed. : I performed a H&P examination of this patient and discussed the same with the dictator. I agree with the dictator's note. Any additional findings/opinions/ etc. will be noted.
[2016-06-26 17:21] LABS: Glucose,Whole Blood 104 mg/dL (75-99)
[2016-06-26] MEDS ORDERED: WARFARIN 3 MG TAB PO ONE (18:00)
--- NOTE | 2016-06-26 20:40 | PN ---
DATE OF SERVICE: 06/26/2016 This 80-year-old woman was admitted after incarcerated hernia surgery. The patient had NG tube which has been removed at this time. Seen and evaluated the patient along with nurse practitioner. Please refer to the nurse practitioner notes and impression documented as a scribe for further information. INR is 1.4. Recommend Coumadin 3 mg today. Continue to monitor. Guarded prognosis. Further recommendations to follow.
[2016-06-26 21:27] LABS: Glucose,Whole Blood 144 mg/dL (75-99)
[2016-06-27] MEDS: INSULIN LISPRO (humaLOG) 300 UNIT/3 ML VIAL SQ SCH ×5 (01:18→21:56)
[2016-06-27] MEDS: HEPARIN SODIUM,PORCINE 5,000 UNIT/ML 1 ML VIAL SQ SCH ×2 (01:19→10:32)
[2016-06-27] MEDS: SODIUM CHLORIDE 0.45% 1,000 ML IV SCH ×2 (01:21→22:31)
[2016-06-27] MEDS: HYDROcodone/APAP 5-325MG 1 EACH TAB PO PRN ×3 (06:04→22:25)
[2016-06-27] MEDS: LEVOTHYROXINE 25 MCG TAB PO SCH (06:05)
[2016-06-27 07:22] LABS: Glucose,Whole Blood 112 mg/dL (75-99)
--- NOTE | 2016-06-27 08:48 | P.PN ---
Subjective Mrs. Peres is an 80-year-old white female who is status post reduction of an incarcerated femoral hernia which was resulting in small bowel obstruction. She additionally had repair of the hernia and small bowel resection for area of questionable viability. She is postop day #4. She is passing flatus at this time, and this had a bowel movement. She is not complaining of any incisional or abdominal pain. She has some chronic back pain. Patient is tolerating a clear liquid diet. Objective - Vital Signs Vital signs: Vital Signs Temp 97.6 F 06/27/16 07:00 Pulse 62 06/27/16 07:00 Resp 18 06/27/16 07:00 BP 177/83 06/27/16 07:00 Pulse Ox 94 L 06/27/16 07:00 Intake & Output 06/26/16 06/27/16 06/27/16 18:59 06:59 18:59 Intake Total 960 900 Balance 960 900 Weight 64.5 kg 66 kg Intake: Intake, IV Titration 600 Amount Sodium Chloride 0.45% 1, 600 000 ml @ 50 mls/hr IV . Q20H BRAYAN Rx#:[id number] Oral 960 300 Other: # Voids 2 1 - Constitutional General appearance: Present: average body habitus - Respiratory Respiratory: bilateral: CTA - Cardiovascular Rhythm: regular Heart sounds: normal: S1, S2 - Gastrointestinal Gastrointestinal Comment(s): Incisions clean and dry General gastrointestinal: Present: normal bowel sounds - Psychiatric Psychiatric: Present: A&O x's 3, appropriate affect, intact judgment & insight - Labs CBC & Chem 7: 06/26/16 07:46 06/26/16 07:46 Labs: Abnormal Lab Results - Last 24 Hours (Table) 06/26/16 06/26/16 06/26/16 Range/Units 07:46 07:46 07:46 Hgb 10.9 L (11.4-16.0) gm/dL MCHC 28.9 L (31.0-37.0) g/dL RDW 16.7 H (11.5-15.5) % Lymphocytes # 0.6 L (1.0-4.8) k/uL PT 13.7 H (9.0-12.0) sec Chloride 113 H (98-107) mmol/L Carbon Dioxide 20 L (22-30) mmol/L BUN 25 H (7-17) mg/dL Glucose 72 L (74-99) mg/dL POC Glucose (mg/dL) (75-99) mg/dL 06/26/16 06/26/16 06/26/16 Range/Units 10:58 16:59 21:24 Hgb (11.4-16.0) gm/dL MCHC (31.0-37.0) g/dL RDW (11.5-15.5) % Lymphocytes # (1.0-4.8) k/uL PT (9.0-12.0) sec Chloride (98-107) mmol/L Carbon Dioxide (22-30) mmol/L BUN (7-17) mg/dL Glucose (74-99) mg/dL POC Glucose (mg/dL) 110 H 104 H 144 H (75-99) mg/dL 06/27/16 Range/Units 07:11 Hgb (11.4-16.0) gm/dL MCHC (31.0-37.0) g/dL RDW (11.5-15.5) % Lymphocytes # (1.0-4.8) k/uL PT (9.0-12.0) sec Chloride (98-107) mmol/L Carbon Dioxide (22-30) mmol/L BUN (7-17) mg/dL Glucose (74-99) mg/dL POC Glucose (mg/dL) 112 H (75-99) mg/dL Assessment and Plan Plan: Impression/plan: 1. Postop day #4 reduction of incarcerated femoral hernia with hernia repair, small bowel resection 2. Cardiac disease including atrial fibrillation, sick sinus syndrome, mitral valve replacement 3. Diabetes 4. Osteoarthritis 5. Hypothyroidism 6. Patient has had a bowel movement Plan: 1. Advance diet 2. Up with assistance ambulating in the hallway 3. Medical care as per cardiology and medicine 4. Patient started on Coumadin 5. Hemoglobin today noted to be 10.9 we'll follow repeat CBC in a.m.
[2016-06-27 09:17] LABS: INR 1.9 (<1.1); Prothrombin Time 18.2 sec (9.0-12.0)
[2016-06-27 09:33] LABS: Anion Gap 10 mmol/L; Blood Urea Nitrogen 14 mg/dL (7-17); Calcium 8.2 mg/dL (8.4-10.2); Carbon Dioxide 22 mmol/L (22-30); Chloride 110 mmol/L (98-107); Glucose 147 mg/dL (74-99); Non-African American GFR(MDRD) >60 (>60 ml/min/1.73 sqM); Potassium 3.6 mmol/L (3.5-5.1); Sodium 142 mmol/L (137-145)
[2016-06-27] MEDS: PANTOPRAZOLE 40 MG TABLET PO SCH (10:33)
[2016-06-27] MEDS: ASPIRIN 81 MG CHEW PO SCH (10:33)
[2016-06-27] MEDS: METOPROLOL TARTRATE 25 MG TAB PO SCH ×2 (10:33→21:57)
[2016-06-27] MEDS: GABAPENTIN 100 MG CAP PO SCH ×3 (10:33→22:25)
[2016-06-27 12:05] LABS: Glucose,Whole Blood 140 mg/dL (75-99)
[2016-06-27 15:15] VITALS: PULSE 70
[2016-06-27 17:14] LABS: Glucose,Whole Blood 111 mg/dL (75-99)
[2016-06-27] MEDS ORDERED: WARFARIN 3 MG TAB PO ONE (18:00)
[2016-06-27 21:49] LABS: Glucose,Whole Blood 127 mg/dL (75-99)
[2016-06-28] MEDS: HYDROcodone/APAP 5-325MG 1 EACH TAB PO PRN ×2 (04:19→12:59)
[2016-06-28] MEDS: LEVOTHYROXINE 25 MCG TAB PO SCH (06:34)
[2016-06-28 07:20] LABS: Glucose,Whole Blood 123 mg/dL (75-99)
[2016-06-28 07:33] VITALS: RESP 20; TEMP 96.3
[2016-06-28] MEDS: INSULIN LISPRO (humaLOG) 300 UNIT/3 ML VIAL SQ SCH ×2 (07:46→13:00)
[2016-06-28] MEDS: PANTOPRAZOLE 40 MG TABLET PO SCH (07:46)
[2016-06-28] MEDS: ASPIRIN 81 MG CHEW PO SCH (07:46)
[2016-06-28] MEDS: GABAPENTIN 100 MG CAP PO SCH (07:46)
[2016-06-28] MEDS: METOPROLOL TARTRATE 25 MG TAB PO SCH (07:46)
[2016-06-28 08:38] LABS: INR 1.9 (<1.1); Prothrombin Time 18.1 sec (9.0-12.0)
[2016-06-28 09:09] LABS: Anisocytosis Slight; Basophils % (A) 0 %; CH 27.2; CHCM 30.2; Eosinophils # (A) 0.2 k/uL (0-0.7); Eosinophils % (A) 4 %; HCT 36.8 % (34.0-46.0); HGB 11.2 gm/dL (11.4-16.0); Hypochromasia Marked; Luc # (Auto) 0.09; Luc % (Auto) 1; Lymphocytes # (A) 0.7 k/uL (1.0-4.8); Lymphocytes % (A) 11 %; MCH 27.4 pg (25.0-35.0); MCHC 30.3 g/dL (31.0-37.0); Mean Platelet Volume 6.8; Monocytes # (A) 0.5 k/uL (0-1.0); Monocytes % (A) 8 %; Neutrophils # (A) 4.7 k/uL (1.3-7.7); Neutrophils % (A) 76 %; RBC 4.08 m/uL (3.80-5.40); RDW 16.2 % (11.5-15.5); WBC 6.2 k/uL (3.8-10.6); WBC (Perox) 6.78
[2016-06-28 09:13] LABS: MCV 90.2 fL (80.0-100.0)
[2016-06-28 09:36] VITALS: BP 131/87
--- NOTE | 2016-06-28 12:13 | P.PN ---
Subjective Mrs. Peres is an 80-year-old white female who is status post reduction of an incarcerated femoral hernia which was resulting in small bowel obstruction. She additionally had repair of the hernia and small bowel resection for area of questionable viability. She is postop day #5. She is passing flatus at this time, and this had a bowel movement. She is not complaining of any incisional or abdominal pain. She has some chronic back pain. Patient is tolerating a carbohydrate consistent diet. Objective - Vital Signs Vital signs: Vital Signs Temp 96.3 F L 06/28/16 07:00 Pulse 70 06/28/16 07:00 Resp 20 06/28/16 07:00 BP 131/87 06/28/16 09:35 Pulse Ox 97 06/28/16 07:00 Intake & Output 06/27/16 06/28/16 06/28/16 18:59 06:59 18:59 Intake Total 760 360 Balance 760 360 Weight 71 kg Intake: Intake, IV Titration 760 Amount Sodium Chloride 0.45% 1, 760 000 ml @ 50 mls/hr IV . Q20H BRAYAN Rx#:[id number] Oral 360 Other: # Voids 3 - Constitutional General appearance: Present: average body habitus - Respiratory Respiratory: bilateral: CTA - Cardiovascular Heart sounds: normal: S1, S2 - Gastrointestinal Gastrointestinal Comment(s): Incisions clean and dry General gastrointestinal: Present: normal bowel sounds - Psychiatric Psychiatric: Present: A&O x's 3, appropriate affect, intact judgment & insight - Labs CBC & Chem 7: 06/28/16 08:08 06/27/16 08:36 Labs: Abnormal Lab Results - Last 24 Hours (Table) 06/27/16 06/27/16 06/28/16 Range/Units 17:08 21:28 07:00 Hgb (11.4-16.0) gm/dL MCHC (31.0-37.0) g/dL RDW (11.5-15.5) % Lymphocytes # (1.0-4.8) k/uL PT (9.0-12.0) sec POC Glucose (mg/dL) 111 H 127 H 123 H (75-99) mg/dL 06/28/16 06/28/16 Range/Units 08:08 08:08 Hgb 11.2 L (11.4-16.0) gm/dL MCHC 30.3 L (31.0-37.0) g/dL RDW 16.2 H (11.5-15.5) % Lymphocytes # 0.7 L (1.0-4.8) k/uL PT 18.1 H (9.0-12.0) sec POC Glucose (mg/dL) (75-99) mg/dL Assessment and Plan Plan: Impression/plan: 1. Postop day #5 reduction of incarcerated femoral hernia with hernia repair, small bowel resection 2. Cardiac disease including atrial fibrillation, sick sinus syndrome, mitral valve replacement 3. Diabetes 4. Osteoarthritis 5. Hypothyroidism 6. Patient has had a bowel movement Plan: 1. Discharge home if okay with medicine and cardiology 2. Follow-up with Dr. Egan in 1 week
--- NOTE | 2016-06-28 12:16 | P.DS ---
Providers Date of admission: 06/23/16 04:36 Attending physician: Donna Valente Consults: 06/23/16 08:05 Consult Physician Urgent Consulting Provider: Darwin Clark Consult Reason/Comments: CHF; surgical clearence Do you want consulting provider notified?: Yes 06/23/16 08:15 Consult Physician Stat Consulting Provider: Darwin Clark Consult Reason/Comments: or clearance Do you want consulting provider notified?: Yes 06/23/16 08:16 Consult Physician Urgent Consulting Provider: Ananth Phelan Consult Reason/Comments: cardiac clearance Do you want consulting provider notified?: Already Contacted 06/23/16 13:21 Consult Physician Routine Consulting Provider: Joe Williamson Consult Reason/Comments: need for antibiotics Do you want consulting provider notified?: Yes Primary care physician: Rashawn Farah [facility] Course: Patient is an 80-year-old white female who was admitted with an incarcerated femoral hernia. She underwent reduction of femoral hernia with small bowel resection and repair of the hernia. Postoperatively she is doing well and is ready for discharge home if okay with medicine and cardiology. At this time she is tolerating her diet without difficulty, and has been restarted on anticoagulation. Plan - Discharge Summary Discharge Medication List Aspirin 81 mg PO DAILY 10/08/14 [History] Gabapentin [Neurontin] 100 mg PO TID 10/08/14 [History] HYDROcodone/APAP 5-325MG [[place] 5-325] 1 tab PO Q6HR PRN 10/08/14 [History] Ondansetron HCl [Zofran] 4 mg PO Q8HR PRN #12 tab 11/15/15 [Rx] Potassium Chloride ER [K-Dur 20] 20 meq PO DAILY 11/15/15 [History] Esomeprazole Magnesium [NexIUM] 40 mg PO DAILY 06/23/16 [History] Levothyroxine Sodium [Synthroid] 25 mcg PO DAILY 06/23/16 [History] Melatonin 9 mg PO HS PRN 06/23/16 [History] Metoprolol Tartrate [Lopressor] 25 mg PO BID 06/23/16 [History] Torsemide [Demadex] 20 mg PO DAILY 06/23/16 [History] Warfarin [Coumadin] 3 mg PO HS 06/23/16 [History] metFORMIN HCL [Glucophage] 500 mg PO DAILY 06/23/16 [History] Follow up Appointment(s)/Referral(s): Rashawn Farah MD [Primary Care Provider] - 3 Days Donna Valente MD [STAFF PHYSICIAN] - 1 Week Patient Instructions/Handouts: Heart Failure (DC), Type 2 Diabetes in Adults ( DC) Activity/Diet/Wound Care/Special Instructions: Patient to be discharged home if okay with cardiology and medicine No heavy lifting Do not drive until seen by Dr. Egan Discharge Disposition: HOME SELF-CARE
[2016-06-28 12:43] LABS: Glucose,Whole Blood 109 mg/dL (75-99)
[2016-06-28 13:33] LABS: Anion Gap 10 mmol/L; Blood Urea Nitrogen 9 mg/dL (7-17); Calcium 8.3 mg/dL (8.4-10.2); Carbon Dioxide 25 mmol/L (22-30); Chloride 109 mmol/L (98-107); Glucose 129 mg/dL (74-99); Non-African American GFR(MDRD) >60 (>60 ml/min/1.73 sqM); Potassium 3.9 mmol/L (3.5-5.1); Sodium 144 mmol/L (137-145)
--- NOTE | 2016-06-28 15:15 | PN ---
DATE OF SERVICE: 06/27/2016 This 80-year-old woman who was admitted with abdominal symptoms and incarcerated ventral hernia had an NG tube removed. The patient is on Coumadin. INR is 1.9 today. No chest or palpitation. No fever. The patient tolerated p.o. food. Surgery is following the patient closely. On exam, alert and oriented times three. Pulse 70, blood pressure 141/74, respiration 18, temperature 97.5, pulse ox 97% on room air. HEENT: Conjunctivae normal. NECK: No jugular venous distention. CARDIOVASCULAR: S1, S2 muffled. RESPIRATORY: Breath sounds diminished at the bases. Bilateral scattered rhonchi and crackles. ABDOMEN: Soft, nontender. No mass palpable. LEGS: No edema. No swelling. CENTRAL NERVOUS SYSTEM: No focal deficits. LABS: CBC noted. INR is 1.9. ASSESSMENT: 1. Incarcerated ventral hernia, status post reduction of incarcerated femoral hernia with hernia repair and small bowel resection. 2. Chronic atrial fibrillation on sick sinus syndrome with automatic implantable cardioverter-defibrillator generator change. 3. Coumadin monitoring. 4. Hypertension. 5. Diabetes mellitus type 2. 6. Hypothyroidism. 7. Congestive heart failure with chronic systolic heart failure. 8. Nonischemic cardiomyopathy with severe left ventricle dysfunction. 9. Hypernatremia. 10. FULL CODE. RECOMMENDATIONS AND DISCUSSION: I recommend to continue current medications. Continue to monitor. Symptomatic treatment. Coumadin 3 mg. Monitor PT and INR closely. Otherwise, continue with the rest of the medications. Diet per surgery. Further recommendations to follow. MTDD
--- NOTE | 2016-06-28 18:47 | P.PN ---
Subjective Date of service 06/28/16 Progress note being dictated for Dr. Hernandez Interval history: This is an 80-year-old female admitted with incarcerated ventral hernia status post reduction of incarcerated femoral hernia with hernia repair, and multiple other medical issues. Doing well. Tolerating soft consistent carb diet without nausea or vomiting. Positive bowel movement yesterday. Ambulating in hallway, tolerating increase in exertion. Denies lightheadedness dizziness. INR 1.9. Denies chest pain, palpitations or increasing shortness of breath. Afebrile. Objective - Vital Signs Vital signs: Vital Signs Temp 96.3 F L 06/28/16 07:00 Pulse 70 06/28/16 07:00 Resp 20 06/28/16 07:00 BP 131/87 06/28/16 09:35 Pulse Ox 97 06/28/16 07:00 Intake & Output 06/27/16 06/28/16 06/28/16 18:59 06:59 18:59 Intake Total 760 360 Balance 760 360 Weight 71 kg Intake: Intake, IV Titration 760 Amount Sodium Chloride 0.45% 1, 760 000 ml @ 50 mls/hr IV . Q20H BRAYAN Rx#:[id number] Oral 360 Other: # Voids 3 - Exam PHYSICAL EXAM: VITAL SIGNS: As above GENERAL: [Sitting up in bed, no acute distress] HEENT: [Pupils equal conjunctiva normal.] NECK: [Supple, no JVD] RESPIRATORY EFFORT:[Normal] LUNGS: recent generator change site, hematoma present with Steri-Strips, bilateral bases diminished with scattered rhonchi, fine crackles] CARDIOVASCULAR[regular S1 and S2, positive systolic murmur, no edema] GI: [Abdomen soft, status post surgery, dressing clean dry and intact, abdominal binder present, positive bowel sounds.] PSYCH: [Alert and oriented -3, mood and affect normal.] NEURO: No focal deficits, moves all 4 extremities, strength and sensation grossly intact - Labs CBC & Chem 7: 06/28/16 08:08 06/28/16 08:08 Labs: Abnormal Lab Results - Last 24 Hours (Table) 06/27/16 06/27/16 06/27/16 Range/Units 11:57 17:08 21:28 Hgb (11.4-16.0) gm/dL MCHC (31.0-37.0) g/dL RDW (11.5-15.5) % Lymphocytes # (1.0-4.8) k/uL PT (9.0-12.0) sec POC Glucose (mg/dL) 140 H 111 H 127 H (75-99) mg/dL 06/28/16 06/28/16 06/28/16 Range/Units 07:00 08:08 08:08 Hgb 11.2 L (11.4-16.0) gm/dL MCHC 30.3 L (31.0-37.0) g/dL RDW 16.2 H (11.5-15.5) % Lymphocytes # 0.7 L (1.0-4.8) k/uL PT 18.1 H (9.0-12.0) sec POC Glucose (mg/dL) 123 H (75-99) mg/dL Assessment and Plan Plan: 1. Incarcerated ventral hernia status post reduction of incarcerated femoral hernia with hernia repair, small bowel resection. 2. [Chronic atrial fibrillation,] with history of sick sinus syndrome with recent AICD generator change. 3. [Hypertension]. 4. [Diabetes mellitus]. 5. [Osteoarthritis]. 6. [Hypothyroidism]. 7. [Chronic systolic heart failure]. 8. Non-ischemic cardiomyopathy with severe LV dysfunction 9. Hypernatremia, resolved. 10. Coumadin monitoring Plan: Continue on current medication regime ,monitoring and symptomatic treatment. Maintain Aggressive pulmonary toileting. Discharge planning in progress for today as per surgery. Patient is being discharged home with daughter. Coumadin diet. Coumadin 3 mg every 1800 with repeat PT/INR in 3 days with PCP. Diet as per surgery. The impression and plan of care has been dictated as directed. : I performed a H&P examination of this patient and discussed the same with the dictator. I agree with the dictator's note. Any additional findings/opinions/ etc. will be noted.
--- NOTE | 2016-06-29 11:51 | PN ---
DATE OF SERVICE: 06/28/2016 This 80-year-old woman who was admitted with incarcerated ventral hernia, also had sick sinus syndrome. The patient has been anticoagulated. Seen and evaluated the patient along with the nurse practitioner. Please refer to the nurse practitioner notes and impression documented for further information. Monitor PT and INR and coagulopathy closely in the outpatient setting.
== END 2016-06-28 14:22 | disposition home or self-care (01) | DRG 330 ==
LOC: EC 01:38 → 4MS4W 04:36
PROVIDERS: ADMIT Surgery; ATTEND Surgery
PROC: 0YU80JZ Supplement Left Femoral Region with Synthetic Substitute, Open Approach (ICD-10-PCS; 2016-06-23)
PROC: 0D9670Z Drainage of Stomach with Drainage Device, Via Natural or Artificial Opening (ICD-10-PCS; 2016-06-23)
PROC: 0DB80ZZ Excision of Small Intestine, Open Approach (ICD-10-PCS; principal; 2016-06-23 08:30)
DX: K41.30 Unilateral femoral hernia, with obstruction, without gangrene, not specified as recurrent (principal); I42.9 Cardiomyopathy, unspecified; E87.0 Hyperosmolality and hypernatremia; I50.22 Chronic systolic (congestive) heart failure; I11.0 Hypertensive heart disease with heart failure; I48.0 Paroxysmal atrial fibrillation; E11.9 Type 2 diabetes mellitus without complications; J45.909 Unspecified asthma, uncomplicated; G89.29 Other chronic pain; M54.5 Low back pain; M19.90 Unspecified osteoarthritis, unspecified site; E87.6 Hypokalemia; E03.9 Hypothyroidism, unspecified; Z95.2 Presence of prosthetic heart valve; Z88.1 Allergy status to other antibiotic agents; Z95.810 Presence of automatic (implantable) cardiac defibrillator; Z90.49 Acquired absence of other specified parts of digestive tract; Z98.49 Cataract extraction status, unspecified eye; Z79.01 Long term (current) use of anticoagulants; Z79.84 Long term (current) use of oral hypoglycemic drugs; Z79.82 Long term (current) use of aspirin; Z79.899 Other long term (current) drug therapy; Z80.0 Family history of malignant neoplasm of digestive organs
CPT/HCPCS: 36415; 71010; 74177; 80048; 80053; 81001; 82150; 82550; 82553; 83036; 83690; 83735; 84484; 85025; 85610; 85730; 86850; 86900; 86901; 88302; 88305; 93005; 93306; 96361; 96372; 96374; 99285

== ENCOUNTER → 2016-10-22 | Outpatient (CLI) | payer MEDICARE ==
--- NOTE | 2016-10-25 09:40 | XR ---
Sacrum and coccyx HISTORY: Low back pain, fall 2 weeks prior 3 views of the sacrum and coccyx Comparison CT abdomen pelvis May There is a spinal curvature. Degenerative disc changes are present in the lower lumbar spine. Bone mi neralization is reduced which may limit sensitivity. No fracture or dislocation is evident. Anterolis thesis grade 1 L4-5 is suspected as noted on prior exam. Facet arthropathy changes are noted in the p osterior elements of the lower lumbar spine. Injection granuloma are noted incidentally. IMPRESSION: Degenerative disc disease and facet arthropathy. Low bone mineralization may limit exam. For increased sensitivity bone scan or MRI could be performed as indicated.
--- NOTE | 2016-10-25 09:42 | XR ---
Lumbosacral spine HISTORY: Low back pain, trauma 2 weeks prior 5 views of the lumbosacral spine correlated to sacrum and coccyx same date Levoscoliosis is centered at L2. Bone mineralization is reduced which may limit sensitivity. Surgical clips are present in the right upper quadrant. Probable vascular calcifications noted incidentally. There is no evident spondylolysis. Anterolisthesis grade 1 L4-5. Vacuum phenomenon present at L4-5 an d L5-S1. There is multilevel spondylosis. Sclerosis present in the posterior elements. Lumbar vertebr al bodies show preserved height. IMPRESSION: Degenerative disc disease, facet arthropathy, persistent anterolisthesis L4-5. Osteopenia may limit exam, consider alternate imaging for increased sensitivity as indicated. Scoliosis. Periph eral vascular atherosclerotic disease.
== END | disposition home or self-care (01) ==
LOC: RADXRYALE 11:25
PROVIDERS: ATTEND Family Medicine
DX: M51.36 Other intervertebral disc degeneration, lumbar region (principal); M12.88 Other specific arthropathies, not elsewhere classified, other specified site; M41.9 Scoliosis, unspecified; M43.16 Spondylolisthesis, lumbar region; I70.209 Unspecified atherosclerosis of native arteries of extremities, unspecified extremity
CPT/HCPCS: 72110; 72220

== ENCOUNTER 2017-01-04 00:14 | Inpatient (IN) | payer MEDICARE ==
[2017-01-04] MEDS ORDERED: MORPHINE SULFATE 4 MG/ML SYRINGE IV STA (00:26)
[2017-01-04] MEDS ORDERED: SODIUM CHLORIDE 0.9% 1,000 ML IV STA ×2 (00:26)
[2017-01-04] MEDS ORDERED: RX INFO: IV CONTRAST WAS GIVEN 1 EACH MISC MISCELLANE PRN (00:58)
--- NOTE | 2017-01-04 00:58 | ED ---
General Adult HPI - General Chief complaint: Abdominal Pain Stated complaint: abd pain Time Seen by Provider: 01/04/17 00:26 Source: patient, RN notes reviewed, old records reviewed Mode of arrival: wheelchair Limitations: no limitations - History of Present Illness Initial comments: This is an 81-year-old female ER for evaluate not. Epigastric abdominal pain related to back, radiating to groin. Anterior bowel pain. Mild nausea no vomiting. She does have history of abdominal surgery including colon resection , history of constipation. Symptoms are episodic for about a couple months now about 5 times but nonspecific. No fevers or travel history. No blood in her vomit or urine. Recent colonoscopy with no diagnosis - Related Data Home Medications Medication Instructions Recorded Confirmed Aspirin 81 mg PO DAILY 10/08/14 01/04/17 Gabapentin [Neurontin] 100 mg PO TID 10/08/14 01/04/17 HYDROcodone/APAP 5-325MG [[place] 1 tab PO Q6HR PRN 10/08/14 01/04/17 5-325] Potassium Chloride ER [K-Dur 20] 20 meq PO DAILY 11/15/15 01/04/17 Esomeprazole Magnesium [NexIUM] 40 mg PO DAILY 06/23/16 01/04/17 Levothyroxine Sodium [Synthroid] 25 mcg PO DAILY 06/23/16 01/04/17 Melatonin 9 mg PO HS PRN 06/23/16 01/04/17 Metoprolol Tartrate [Lopressor] 25 mg PO BID 06/23/16 01/04/17 Torsemide [Demadex] 20 mg PO DAILY 06/23/16 01/04/17 metFORMIN HCL [Glucophage] 500 mg PO DAILY 06/23/16 01/04/17 Previous Rx's Medication Instructions Recorded Ondansetron HCl [Zofran] 4 mg PO Q8HR PRN #12 tab 11/15/15 Warfarin [Coumadin] 3 mg PO HS #7 tab 06/28/16 Allergies Allergy/AdvReac Type Severity Reaction Status Date / Time amoxicillin trihydrate Allergy Unknown Verified 01/04/17 00:24 [From Augmentin] ciprofloxacin [From Cipro] Allergy Unknown Verified 01/04/17 00:24 ciprofloxacin HCl Allergy Unknown Verified 01/04/17 00:24 [From Cipro] potassium clavulanate Allergy Unknown Verified 01/04/17 00:24 [From Augmentin] Sulfa (Sulfonamide Allergy Rash/Hives Verified 01/04/17 00:24 Antibiotics) Review of Systems ROS Statement: Those systems with pertinent positive or pertinent negative responses have been documented in the HPI. ROS Other: All systems not noted in ROS Statement are negative. Past Medical History Past Medical History: Atrial Fibrillation, Heart Failure, Diabetes Mellitus, GERD/Reflux, Hypertension, Osteoarthritis (OA), Pneumonia, Thyroid Disorder Additional Past Medical History / Comment(s): hrer's esophagus 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/16, incarcerated hernia in bowel Type of Cardiac Device: Permanent Pacemaker Device Placement Date:: 2011 Past Psychological History: No Psychological Hx Reported Smoking Status: Never smoker Past Alcohol Use History: None Reported Past Drug Use History: None Reported General Exam Limitations: no limitations General appearance: alert, in no apparent distress Head exam: Present: atraumatic, normocephalic, normal inspection Eye exam: Present: normal appearance, PERRL, EOMI. Absent: scleral icterus, conjunctival injection, periorbital swelling ENT exam: Present: normal exam, mucous membranes moist Neck exam: Present: normal inspection. Absent: tenderness, meningismus, lymphadenopathy Respiratory exam: Present: normal lung sounds bilaterally. Absent: respiratory distress, wheezes, rales, rhonchi, stridor Cardiovascular Exam: Present: regular rate, normal rhythm, normal heart sounds. Absent: systolic murmur, diastolic murmur, rubs, gallop, clicks GI/Abdominal exam: Present: soft, distended, tenderness, normal bowel sounds. Absent: guarding, rebound, rigid Extremities exam: Present: normal inspection, full ROM, normal capillary refill. Absent: tenderness, pedal edema, joint swelling, calf tenderness Back exam: Present: normal inspection Neurological exam: Present: alert, oriented X3, CN II-XII intact Psychiatric exam: Present: normal affect, normal mood Skin exam: Present: warm, dry, intact, normal color. Absent: rash Course Vital Signs 01/04/17 01/04/17 00:20 02:32 Temperature 98.8 F Pulse Rate 72 70 Respiratory 18 14 Rate Blood Pressure 151/64 135/63 O2 Sat by Pulse 93 L 93 L Oximetry - Reevaluation(s) Reevaluation #1: 01/04/17 02:46 At this point patient has adequate pain control Medical Decision Making - Medical Decision Making 81 female in the ER with right bowel pain epigastric abdominal pain possibly choledocholithiasis white count, started on antibiotics admit for surgery as well as GI consult - Lab Data Result diagrams: 01/04/17 01:29 01/04/17 01:29 Lab Results 01/04/17 01/04/17 01/04/17 Range/Units 01:29 01:29 01:29 WBC 17.6 H (3.8-10.6) k/uL RBC 4.68 (3.80-5.40) m/uL Hgb 14.1 (11.4-16.0) gm/dL Hct 42.8 (34.0-46.0) % MCV 91.6 D (80.0-100.0) fL MCH 30.0 (25.0-35.0) pg MCHC 32.8 (31.0-37.0) g/dL RDW 13.9 (11.5-15.5) % Plt Count 215 (150-450) k/uL Neutrophils % 94 % Lymphocytes % 1 % Monocytes % 3 % Eosinophils % 1 % Basophils % 0 % Neutrophils # 16.6 H (1.3-7.7) k/uL Lymphocytes # 0.2 L (1.0-4.8) k/uL Monocytes # 0.5 (0-1.0) k/uL Eosinophils # 0.2 (0-0.7) k/uL Basophils # 0.0 (0-0.2) k/uL PT (9.0-12.0) sec INR (<1.1) APTT (22.0-30.0) sec Sodium 144 (137-145) mmol/L Potassium 4.1 (3.5-5.1) mmol/L Chloride 104 (98-107) mmol/L Carbon Dioxide 29 (22-30) mmol/L Anion Gap 11 mmol/L BUN 22 H (7-17) mg/dL Creatinine 0.90 (0.52-1.04) mg/dL Est GFR (MDRD) Af Amer >60 (>60 ml/min/1.73 sqM) Est GFR (MDRD) Non-Af 60 (>60 ml/min/1.73 sqM) Glucose 179 H (74-99) mg/dL Plasma Lactic Acid Joey (0.7-2.0) mmol/L Calcium 9.8 (8.4-10.2) mg/dL Total Bilirubin 1.9 H (0.2-1.3) mg/dL AST 677 H (14-36) U/L ALT 409 H (9-52) U/L Alkaline Phosphatase 225 H (38-126) U/L Total Creatine Kinase 43 (30-135) U/L CK-MB (CK-2) 0.9 (0.0-2.4) ng/mL CK-MB (CK-2) Rel Index 2.1 Troponin I <0.012 (0.000-0.034) ng/mL Total Protein 7.2 (6.3-8.2) g/dL Albumin 4.0 (3.5-5.0) g/dL Amylase 2329 H* (30-110) U/L 01/04/17 01/04/17 Range/Units 01:29 01:29 WBC (3.8-10.6) k/uL RBC (3.80-5.40) m/uL Hgb (11.4-16.0) gm/dL Hct (34.0-46.0) % MCV (80.0-100.0) fL MCH (25.0-35.0) pg MCHC (31.0-37.0) g/dL RDW (11.5-15.5) % Plt Count (150-450) k/uL Neutrophils % % Lymphocytes % % Monocytes % % Eosinophils % % Basophils % % Neutrophils # (1.3-7.7) k/uL Lymphocytes # (1.0-4.8) k/uL Monocytes # (0-1.0) k/uL Eosinophils # (0-0.7) k/uL Basophils # (0-0.2) k/uL PT 22.3 H (9.0-12.0) sec INR 2.3 (<1.1) APTT 28.4 (22.0-30.0) sec Sodium (137-145) mmol/L Potassium (3.5-5.1) mmol/L Chloride (98-107) mmol/L Carbon Dioxide (22-30) mmol/L Anion Gap mmol/L BUN (7-17) mg/dL Creatinine (0.52-1.04) mg/dL Est GFR (MDRD) Af Amer (>60 ml/min/1.73 sqM) Est GFR (MDRD) Non-Af (>60 ml/min/1.73 sqM) Glucose (74-99) mg/dL Plasma Lactic Acid Joey 1.7 (0.7-2.0) mmol/L Calcium (8.4-10.2) mg/dL Total Bilirubin (0.2-1.3) mg/dL AST (14-36) U/L ALT (9-52) U/L Alkaline Phosphatase (38-126) U/L Total Creatine Kinase (30-135) U/L CK-MB (CK-2) (0.0-2.4) ng/mL CK-MB (CK-2) Rel Index Troponin I (0.000-0.034) ng/mL Total Protein (6.3-8.2) g/dL Albumin (3.5-5.0) g/dL Amylase (30-110) U/L - Radiology Data Radiology results: report reviewed (CT abdomen and pelvis, ultrasound pending in the morning), image reviewed Disposition Clinical Impression: Leukocytosis, Abdominal pain, Choledocholithiasis Disposition: ADMITTED IP TO THIS [facility] Condition: Fair Referrals: Rashawn Farah MD [Primary Care Provider] - 1-2 days
[2017-01-04 01:40] LABS: Basophils % (A) 0 %; CH 28.8; CHCM 31.6; Eosinophils # (A) 0.2 k/uL (0-0.7); Eosinophils % (A) 1 %; HCT 42.8 % (34.0-46.0); HDW 2.36; HGB 14.1 gm/dL (11.4-16.0); Luc % (Auto) 1; Lymphocytes # (A) 0.2 k/uL (1.0-4.8); Lymphocytes % (A) 1 %; MCHC 32.8 g/dL (31.0-37.0); Mean Platelet Volume 7.3; Monocytes # (A) 0.5 k/uL (0-1.0); Monocytes % (A) 3 %; Neutrophils # (A) 16.6 k/uL (1.3-7.7); Neutrophils % (A) 94 %; RBC 4.68 m/uL (3.80-5.40); RDW 13.9 % (11.5-15.5); WBC 17.6 k/uL (3.8-10.6); WBC (Perox) 18.25
[2017-01-04 01:48] LABS: MCV 91.6 fL (80.0-100.0)
[2017-01-04 01:49] LABS: INR 2.3 (<1.1); Partial Thromboplastin Time 28.4 sec (22.0-30.0); Prothrombin Time 22.3 sec (9.0-12.0)
[2017-01-04 01:53] LABS: ALT 409 U/L (9-52); AST 677 U/L (14-36); Alkaline Phosphatase 225 U/L (38-126); Anion Gap 11 mmol/L; Blood Urea Nitrogen 22 mg/dL (7-17); Calcium 9.8 mg/dL (8.4-10.2); Carbon Dioxide 29 mmol/L (22-30); Chloride 104 mmol/L (98-107); Glucose 179 mg/dL (74-99); Non-African American GFR(MDRD) 60 (>60 ml/min/1.73 sqM); Potassium 4.1 mmol/L (3.5-5.1); Sodium 144 mmol/L (137-145); Total Bilirubin 1.9 mg/dL (0.2-1.3); Total Protein 7.2 g/dL (6.3-8.2)
[2017-01-04 02:04] LABS: Creatine Kinase 43 U/L (30-135)
[2017-01-04 02:06] LABS: Amylase 2329 U/L (30-110)
[2017-01-04 02:18] LABS: Creatine Kinase MB 0.9 ng/mL (0.0-2.4); Troponin I <0.012 ng/mL (0.000-0.034)
[2017-01-04] MEDS ORDERED: metroNIDAZOLE-NS PMX 500 MG in SALINE 1 100ML.BAG IVPB STA (02:34)
[2017-01-04] MEDS ORDERED: PANTOPRAZOLE 40 MG/10 ML VIAL IVP STA (02:46)
[2017-01-04] MEDS ORDERED: ONDANSETRON 4 MG/2 ML VIAL IVP PRN (02:46)
[2017-01-04] MEDS ORDERED: MORPHINE SULFATE 4 MG/ML SYRINGE IVP PRN (02:46)
[2017-01-04] MEDS ORDERED: ONDANSETRON 4 MG/2 ML VIAL IVP STA (02:46)
[2017-01-04] MEDS ORDERED: SODIUM CHLORIDE 0.9% 1,000 ML IV ONE (02:46)
--- NOTE | 2017-01-04 03:34 | CT ---
EXAM: CT Angiography Chest Without and With Intravenous Contrast CT Angiography Abdomen Without and With Intravenous Contrast CLINICAL HISTORY: Reason: Pain TECHNIQUE: Axial computed tomographic angiography images of the chest and abdomen without and with intravenous contrast using CT angiography protocol. CTDI is 142.60 mGy and DLP is 536.70 mGy-cm. This CT exam was performed using one or more of the following dose reduction techniques: automated exposure control, adjustment of the mA and/or kV according to patient size, and/or use of iterative reconstruction technique. MIP reconstructed images were created and reviewed. COMPARISON: None. FINDINGS: VASCULATURE: Aorta: Mild/moderate atherosclerotic vascular calcifications involving the intrathoracic aorta. Moderate atherosclerotic vascular calcifications seen involving the intra-abdominal aorta and its branches. No aortic aneurysm. No dissection. Pulmonary arteries: Main pulmonary artery measures up to 3.3 cm, which may represent pulmonary hypertension. No evidence of PE. Great vessels of aortic arch: No acute findings. No dissection. No occlusion or significant stenosis. Celiac trunk and mesenteric arteries: No acute findings. No occlusion or significant stenosis. Renal arteries: No acute findings. No occlusion or significant stenosis. CHEST: Lungs: Dependent atelectasis involving both lower lobes. Linear atelectasis involving both lower lobes and the lingula. Pleural space: Unremarkable. No significant effusion. No pneumothorax. Heart: Status post mitral valve replacement. Patient status post CABG with sternotomy wires noted. The heart is enlarged. No significant pericardial effusion. ABDOMEN: Liver: Unremarkable. No mass. Gallbladder and bile ducts: Patient is status post cholecystectomy. No ductal dilation. Pancreas: Atrophic pancreas is seen with fatty replacement. No ductal dilation. Spleen: Unremarkable. No splenomegaly. Adrenals: Unremarkable. No mass. Kidneys and ureters: Unremarkable. No obstructing stones. No hydronephrosis. No solid mass. Stomach and bowel: Anastomotic suture line is seen involving the mid small bowel. Colonic diverticulosis. The stomach is distended. No mucosal thickening. Intraperitoneal space: Unremarkable. No significant fluid collection. No free air. CHEST and ABDOMEN: Bones/joints: Grade 1 anterolisthesis of L4 on L5. Multilevel degenerative change changes seen throughout the visualized spine, particularly involving the L2-L3 intervertebral disc space. No acute fracture. No dislocation. Soft tissues: Small fat-containing umbilical hernia. Lymph nodes: Enlarged mediastinal lymph nodes, measuring up to 1.6 in meters in short axis, of unknown significance. Tubes, lines and devices: Left-sided anterior chest wall pacemaker with lead tips in the right antrum and right ventricle. IMPRESSION: No acute intra-thoracic or intra-abdominal pathology. Other findings as described in detail above.
[2017-01-04 08:15] LABS: Appearance,Urine Clear (Clear); Bilirubin,Urine 1+ (Negative); Glucose,Urine (UA) Negative (Negative); Ketones,Urine Negative (Negative); Leukocyte Esterase,Urine Negative (Negative); Nitrite,Urine Negative (Negative); Protein,Urine Trace (Negative); UA Billing (MACRO vs. MICRO) CHEM
[2017-01-04 08:37] LABS: Specific Gravity,Urine 1.049 (1.001-1.035)
[2017-01-04] MEDS ORDERED: metroNIDAZOLE-NS PMX 500 MG in SALINE 1 100ML.BAG IVPB SCH (09:00)
--- NOTE | 2017-01-04 09:37 | US ---
EXAMINATION TYPE: US gallbladder DATE OF EXAM: 01/04/2017 COMPARISON: Multiple CT's most recent earlier today. CLINICAL HISTORY: pain. Epigastric pain and nausea per patient EXAM MEASUREMENTS: Liver Length: 13.6 cm Gallbladder Wall: Surgically absent cm CBD: 1.2 cm Right Kidney: 9.5 x 4.4 x 5.0 cm Pancreas: partially obscured by bowel gas Liver: no masses seen Gallbladder: Surgically absent Evidence for sonographic Marie's sign: No CBD: possible sludge within, upper limits of normal, slightly enlarged size for cholecystectomy Right Kidney: inferior pole obscured by bowel gas Fat replaced atrophy of pancreas is seen better on recent CT. Gallbladder is surgically absent. Commo n bile duct measures 12 mm which is mildly enlarged after cholecystectomy, it is less prominent on re cent CT. Visualized liver is homogeneous. IMPRESSION: No significant finding seen to account for patient's symptoms in patient with absent gall bladder.
[2017-01-04] MEDS: ENOXAPARIN 40 MG/0.4 ML SYRINGE SQ SCH (10:28)
[2017-01-04] MEDS: PANTOPRAZOLE 40 MG/10 ML VIAL IVP SCH (10:29)
[2017-01-04 12:33] LABS: Hepatitis B Surface Ag Index 0.05
[2017-01-04 12:39] LABS: Hepatitis B Core IgM Index 0.04
--- NOTE | 2017-01-04 12:45 | P.GSCN ---
History of Present Illness Consult date: 01/04/17 Reason for Consult: Abdominal pain History of present illness: 81-year-old female presented on the day of admission to the emergency room from home with a chief complaint of developing intractable epigastric pain radiating to the upper back and down into the pelvic area. Associated with nausea sensation no active emesis. Patient states that she has been having similar episodes ongoing for the past several months first episode was in March 2016. Patient stated that the episodes would normally resolve on their own. Patient stated this episode "would not go away became concerned and came into the emergency room to be evaluated for the above-mentioned symptoms. Patient states it was the worst pain she had experienced. Patient states in April 2016 at [facility] in [place] patient underwent a colonoscopy and EGD there were no acute findings were done as part of workup when the patient had developed questionable GI bleed with black stools. Patient is on anticoagulation Coumadin for history of atrial fibrillation. Patient does have a history of an AICD with a pacemaker. Also mitral valve replacement in the past. Patient's states no unintentional weight loss no change in bowel habits no black stool. No chest pain no shortness of breath. Did note in the emergency room the lipase was elevated 10,428 with an amylase elevated 2329. The AST 677 and ALT 409 INR was 2.2. The white count was 17.6 additionally patient did have a CAT scan of the abdomen and pelvis with IV contrast. Showed no acute intrathoracic or intra-abdominal pathology atrophy pancreas, status post cholecystectomy with no ductal dilatation the liver unremarkable no mass an ultrasound done the gallbladder shows surgically absent. Possible sludge within the common bile duct upper limits of normal slightly enlarged ascending continues to report having tenderness in the epigastric area Patient has a history of having on 06/23/2016 incarcerated left inguinal hernia with small bowel obstruction this was addressed with surgery involving the left groin exploration, reduction of the incarcerated femoral hernia, midline lower abdominal laparotomy to reduce incarcerated hernia, small bowel resection with primary anastomosis, a repair of a left groin hernia. Patient states since the surgery she had been doing relatively well this pain that she has been experiencing is different than the pain she was experiencing in May 2016 Review of Systems Essentially unremarkable except as mentioned in the present Past Medical History Past Medical History: Atrial Fibrillation, Heart Failure, Diabetes Mellitus, GERD/Reflux, Hypertension, Osteoarthritis (OA), Pneumonia, Thyroid Disorder Additional Past Medical History / Comment(s): herr's esophagus 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/16, incarcerated hernia in bowel Past Anesthesia/Blood Transfusion Reactions: No Reported Reaction Type of Cardiac Device: Permanent Pacemaker Device Placement Date:: 2011 Past Psychological History: No Psychological Hx Reported Smoking Status: Never smoker Past Alcohol Use History: None Reported Past Drug Use History: None Reported Medications and Allergies Home Medications Medication Instructions Recorded Confirmed Type Aspirin 81 mg PO DAILY 10/08/14 01/04/17 History Gabapentin [Neurontin] 100 mg PO TID 10/08/14 01/04/17 History HYDROcodone/APAP 5-325MG [[place] 1 tab PO Q6HR PRN 10/08/14 01/04/17 History 5-325] Potassium Chloride ER [K-Dur 20] 20 meq PO DAILY 11/15/15 01/04/17 History Levothyroxine Sodium [Synthroid] 25 mcg PO DAILY 06/23/16 01/04/17 History Melatonin 9 mg PO HS PRN 06/23/16 01/04/17 History Metoprolol Tartrate [Lopressor] 25 mg PO BID 06/23/16 01/04/17 History Torsemide [Demadex] 20 mg PO DAILY 06/23/16 01/04/17 History metFORMIN HCL [Glucophage] 500 mg PO DAILY 06/23/16 01/04/17 History Allergies Allergy/AdvReac Type Severity Reaction Status Date / Time amoxicillin trihydrate Allergy Swelling Verified 01/04/17 08:19 [From Augmentin] ciprofloxacin [From Cipro] Allergy Swelling Verified 01/04/17 08:19 ciprofloxacin HCl Allergy Swelling Verified 01/04/17 08:19 [From Cipro] potassium clavulanate Allergy Swelling Verified 01/04/17 08:19 [From Augmentin] Sulfa (Sulfonamide Allergy Rash/Hives Verified 01/04/17 08:19 Antibiotics) Surgical - Exam Vital Signs Temp Pulse Resp BP Pulse Ox 98.8 F 72 18 151/64 93 L 01/04/17 00:20 01/04/17 00:20 01/04/17 00:20 01/04/17 00:20 01/04/17 00:20 GENERAL APPEARANCE: 81-year-old patient is alert, oriented 3, in no acute distress. Denies shortness of breath dizziness lightheadedness or chest pain VITAL SIGNS: Reviewed HEENT: Head is normocephalic and atraumatic. Pupils are equal and reactive. The nares are patent. Oropharynx is clear without lesions. NECK: Supple without lymphadenopathy. Traches midline. HEART: S1, S2. Irregular no murmur noted LUNGS: No crackles or wheezes are heard. Adequate air movement bilaterally ABDOMEN: Soft, tenderness to the epigastric area with palpitation to the abdominal wall, nondistended with good bowel sounds. No peritoneal signs. No palpable organomegaly or masses. Well-healed surgical scar no redness noted EXTREMITIES: Normal skin color and turgor. No cyanosis, rash, ulceration, clubbing or edema. Radial pedal pulses are 2/4 bilaterally. NEUROLOGICAL: No focal deficits. Strength and sensation are grossly intact. Results - Labs 01/05/17 08:23 01/05/17 08:23 Abnormal Lab Results - Last 24 Hours (Table) 01/04/17 01/04/17 01/04/17 Range/Units 01:29 01:29 01:29 WBC 17.6 H (3.8-10.6) k/uL Neutrophils # 16.6 H (1.3-7.7) k/uL Lymphocytes # 0.2 L (1.0-4.8) k/uL PT 22.3 H (9.0-12.0) sec BUN 22 H (7-17) mg/dL Glucose 179 H (74-99) mg/dL Total Bilirubin 1.9 H (0.2-1.3) mg/dL AST 677 H (14-36) U/L ALT 409 H (9-52) U/L Alkaline Phosphatase 225 H (38-126) U/L Amylase 2329 H* (30-110) U/L Lipase 20321 H (23-300) U/L Ur Specific [place] (1.001-1.035) Urine Protein (Negative) Urine Bilirubin (Negative) 01/04/17 Range/Units 07:56 WBC (3.8-10.6) k/uL Neutrophils # (1.3-7.7) k/uL Lymphocytes # (1.0-4.8) k/uL PT (9.0-12.0) sec BUN (7-17) mg/dL Glucose (74-99) mg/dL Total Bilirubin (0.2-1.3) mg/dL AST (14-36) U/L ALT (9-52) U/L Alkaline Phosphatase (38-126) U/L Amylase (30-110) U/L Lipase (23-300) U/L Ur Specific [place] 1.049 H (1.001-1.035) Urine Protein Trace H (Negative) Urine Bilirubin 1+ H (Negative) Diabetes panel 01/04/17 Range/Units 01:29 Sodium 144 (137-145) mmol/L Potassium 4.1 (3.5-5.1) mmol/L Chloride 104 (98-107) mmol/L Carbon Dioxide 29 (22-30) mmol/L BUN 22 H (7-17) mg/dL Creatinine 0.90 (0.52-1.04) mg/dL Glucose 179 H (74-99) mg/dL Calcium 9.8 (8.4-10.2) mg/dL AST 677 H (14-36) U/L ALT 409 H (9-52) U/L Alkaline Phosphatase 225 H (38-126) U/L Total Protein 7.2 (6.3-8.2) g/dL Albumin 4.0 (3.5-5.0) g/dL Calcium panel 01/04/17 Range/Units 01:29 Calcium 9.8 (8.4-10.2) mg/dL Albumin 4.0 (3.5-5.0) g/dL Pituitary panel 01/04/17 Range/Units 01:29 Sodium 144 (137-145) mmol/L Potassium 4.1 (3.5-5.1) mmol/L Chloride 104 (98-107) mmol/L Carbon Dioxide 29 (22-30) mmol/L BUN 22 H (7-17) mg/dL Creatinine 0.90 (0.52-1.04) mg/dL Glucose 179 H (74-99) mg/dL Calcium 9.8 (8.4-10.2) mg/dL Adrenal panel 01/04/17 Range/Units 01:29 Sodium 144 (137-145) mmol/L Potassium 4.1 (3.5-5.1) mmol/L Chloride 104 (98-107) mmol/L Carbon Dioxide 29 (22-30) mmol/L BUN 22 H (7-17) mg/dL Creatinine 0.90 (0.52-1.04) mg/dL Glucose 179 H (74-99) mg/dL Calcium 9.8 (8.4-10.2) mg/dL Total Bilirubin 1.9 H (0.2-1.3) mg/dL AST 677 H (14-36) U/L ALT 409 H (9-52) U/L Alkaline Phosphatase 225 H (38-126) U/L Total Protein 7.2 (6.3-8.2) g/dL Albumin 4.0 (3.5-5.0) g/dL Assessment and Plan Plan: Impression Present on admission intractable acute epigastric abdominal pain with a nausea sensation suspect due to acute pancreatitis present on admission leukocytosis febrile suspect due to early sepsis unclear etiology Present on admission epigastric intractable abdominal pain with nausea with an ultrasound of the gallbladder suspect common bile duct dilatation likely gallstone gallstones Atrial fibrillation controlled ventricular response on anticoagulation Coumadin INR 2.2 Known coronary artery disease prior coronary artery bypass grafting Echocardiogram May 2016 mild pulmonary hypertension with left ventricular systolic function normal with an EF between 55 and 60% History of a colonoscopy EGD at [facility] April 2016 with no acute findings per patient report 06/23/2016 left groin exploration, reduction of incarcerated femoral hernia, midline lower abdominal laparotomy to reduce incarcerated hernia, small bowel resection with primary has phimosis, repair of a left femoral groin hernia 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 Marielena Bonilla nurse practitioner acting as scribe for signing physician.
[2017-01-04 12:51] LABS: Hepatitis C Virus IgG Ab Negative (Negative); Hepatitis C Virus IgG Index 0.11
[2017-01-04] MEDS ORDERED: MELATONIN 3 MG TABLET PO PRN (14:16)
[2017-01-04] MEDS: MORPHINE SULFATE 2 MG/ML SYRINGE IVP PRN ×2 (14:47→19:09)
[2017-01-04] MEDS: GABAPENTIN 100 MG CAP PO SCH ×2 (16:09→21:41)
[2017-01-04] MEDS: METOPROLOL TARTRATE 25 MG TAB PO SCH (21:41)
--- NOTE | 2017-01-05 00:09 | HP ---
CHIEF COMPLAINT: Abdominal pain. HISTORY OF PRESENT ILLNESS: This 81-year-old woman with a past medical history of multiple medical problems, including atrial fibrillation, history of CHF, GERD, hypertension, being followed by Dr. Rashawn Farah in the outpatient setting, has also had history of cholecystectomy in 1984. The patient has been complaining on and off of abdominal pain which is felt in the anterior part of the abdomen. Yesterday the pain was severe and the patient had some nausea, also. The patient came to [facility] with features of elevated LFTs as well as amylase and lipase, indicative of pancreatitis. The patient was admitted for further evaluation and treatment. There is no history of any fever , rigor or chills. No history of headache, loss of consciousness, seizures. PAST MEDICAL HISTORY: 1. History of atrial fibrillation. 2. History of CHF. 3. History of DJD. 4. History of ventral hernia repair. 5. History of AICD. HOME MEDICATIONS: 1. Glucophage 500 mg p.o. daily. 2. Coumadin 3 mg at bedtime. 3. Demadex 20 mg p.o. daily. 4. K-Dur 10 mEq p.o. daily. 5. Lopressor 25 mg p.o. b.i.d. 6. Melatonin 9 mg at bedtime as needed. 7. Synthroid 25 mcg p.o. daily. 8. [place] 5 mg at bedtime p.r.n. 9. Neurontin 100 mg p.o. t.i.d. 10. Aspirin 81 mg p.o. daily. ALLERGIES: 1. AMOXICILLIN. 2. CIPRO. 3. POTASSIUM CLAVULANATE (AUGMENTIN). 4. SULFA. FAMILY HISTORY: No history of heart disease or strokes in the family. SOCIAL HISTORY: No history of smoking. No history of alcohol intake. REVIEW OF SYSTEMS: ENT: No diminished hearing. No diminished vision. CARDIOVASCULAR SYSTEM: No angina, palpitations. RESPIRATORY SYSTEM: As mentioned earlier. GI: As mentioned earlier. : No dysuria, retention. NERVOUS SYSTEM: No numbness, weakness. ALLERGY/IMMUNOLOGY: No asthma, hayfever. MUSCULOSKELETAL: As mentioned earlier. HEMATOLOGY/ONCOLOGY: No history of anemia. ENDOCRINE: Hypothyroidism. CONSTITUTIONAL: As mentioned earlier. DERMATOLOGIC: Negative. RHEUMATOLOGIC: Negative. PSYCHIATRY: As mentioned earlier. PHYSICAL EXAMINATION: Patient is alert and oriented x3. Pulse is 71, blood pressure 160/74, respirations 16, temperature 98.6, pulse ox 96% on 3 L. HEENT: Conjunctivae normal. Oral mucosa moist. NECK: No jugular venous congestion. No carotid bruit. No lymph node enlargement. CARDIAC: S1, S2 muffled. No S3. No S4. RESPIRATORY: Breath sounds diminished at the bases. A few scattered rhonchi. No crackles. ABDOMEN: Soft. Mild diffuse discomfort and pain, tenderness in the epigastrium present. No guarding. No rigidity. No mass palpable. LEGS: No edema. No swelling. NERVOUS SYSTEM: Higher functions as mentioned earlier. Moves all 4 limbs. No focal motor or sensory deficit. LYMPHATICS: No lymph node palpable in neck, axillae or groin. SKIN: No ulcer, rash or bleeding. LABS: WBC 17.6. Bilirubin is 1.9. AST is 677. ALT is 409. Amylase and lipase are elevated. ASSESSMENT: 1. Acute severe pancreatitis, possibly gallstone pancreatitis. 2. Increased AST, ALT, alkaline phosphatase, possibly choledocholithiasis. 3. History of cholecystectomy previously. 4. Increased white count. 5. History of atrial fibrillation. 6. History of congestive heart failure. 7. History of hypertension, essential. 8. AICD. 9. FULL CODE. RECOMMENDATIONS AND DISCUSSION: In this 81-year-old woman who presented with multiple complex medical issues, we will monitor the patient closely, continue the current medications, continue with symptomatic treatment. I recommend repeat labs, surgical and gastroenterology evaluation for possible ERCP. Proton pump inhibitors. DVT prophylaxis. Prognosis is guarded because of the multiple complex medical issues. Further recommendations to follow. A copy of this dictation is being forwarded to Dr. Rashawn Farah. Discussed with the daughter at the bedside, who understands and agrees. [facility]
[2017-01-05] MEDS: MORPHINE SULFATE 2 MG/ML SYRINGE IVP PRN ×2 (04:26→08:11)
--- NOTE | 2017-01-05 05:17 | P.CONS ---
History of Present Illness - Reason for Consult Consult date: 01/04/17 Pancreatiis - History of Present Illness The patient is an 81-year-old female who presented to the emergency room with severe epigastric pain radiating to the upper back associated with nausea but no vomiting. Patient has been having similar episodes over the past several months first episode was in March 2016. These episodes would normally resolve on their own within an hour or so. She had cholecystectomy more than 20 years ago. Had a colonoscopy and EGD at [facility] in April 2016 for possible GI bleeding with no acute findings. Patient is on anticoagulation for history of atrial fibrillation. Patient does have a history of an AICD with a pacemaker. Also mitral valve replacement in the past. In the emergency room, her lipase was elevated 10,428 with an amylase elevated 2329. The AST 677 and ALT 409 INR was 2.2. The white count was 17.6 additionally patient did have a CAT scan of the abdomen and pelvis with IV contrast. Showed no acute intrathoracic or intra-abdominal pathology atrophy pancreas, status post cholecystectomy with no ductal dilatation the liver unremarkable no mass an ultrasound done the gallbladder shows surgically absent. Possible sludge within the common bile duct upper limits of normal slightly enlarged. Patient has a history of having on 06/23/2016 incarcerated left inguinal hernia with small bowel obstruction for which she had surgery involving the left groin exploration, reduction of the incarcerated femoral hernia, midline lower abdominal laparotomy to reduce incarcerated hernia, small bowel resection with primary anastomosis, a repair of a left groin hernia. Patient states since the surgery she had been doing relatively well and that this pain is different. The patient was still having pain and tenderness at the time of my visit this evening and has been requiring narcotic injections. Review of Systems REVIEW OF SYSTEMS: CARDIOPULMONARY: No chest pain or shortness of breath. GENITOURINARY: No dysuria or hematuria. MUSCULOSKELETAL: Unremarkable. SKIN: Unremarkable. ENDOCRINE: Unremarkable. PSYCHIATRIC: Unremarkable. NEUROLOGY: Unremarkable. ENT: Vision unremarkable. CONSTITUTIONAL: No recent weight loss. No fever, chills, night sweats. Past Medical History Past Medical History: Atrial Fibrillation, Heart Failure, Diabetes Mellitus, GERD/Reflux, Hypertension, Osteoarthritis (OA), Pneumonia, Thyroid Disorder Additional Past Medical History / Comment(s): herr's esophagus 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/16, incarcerated hernia in bowel Past Anesthesia/Blood Transfusion Reactions: No Reported Reaction Type of Cardiac Device: Permanent Pacemaker Device Placement Date:: 2011 Past Psychological History: No Psychological Hx Reported Smoking Status: Never smoker Past Alcohol Use History: None Reported Past Drug Use History: None Reported Medications and Allergies Home Medications Medication Instructions Recorded Confirmed Type Aspirin 81 mg PO DAILY 10/08/14 01/04/17 History Gabapentin [Neurontin] 100 mg PO TID 10/08/14 01/04/17 History HYDROcodone/APAP 5-325MG [[place] 1 tab PO Q6HR PRN 10/08/14 01/04/17 History 5-325] Potassium Chloride ER [K-Dur 20] 20 meq PO DAILY 11/15/15 01/04/17 History Levothyroxine Sodium [Synthroid] 25 mcg PO DAILY 06/23/16 01/04/17 History Melatonin 9 mg PO HS PRN 06/23/16 01/04/17 History Metoprolol Tartrate [Lopressor] 25 mg PO BID 06/23/16 01/04/17 History Torsemide [Demadex] 20 mg PO DAILY 06/23/16 01/04/17 History metFORMIN HCL [Glucophage] 500 mg PO DAILY 06/23/16 01/04/17 History Allergies Allergy/AdvReac Type Severity Reaction Status Date / Time amoxicillin trihydrate Allergy Swelling Verified 01/04/17 08:19 [From Augmentin] ciprofloxacin [From Cipro] Allergy Swelling Verified 01/04/17 08:19 ciprofloxacin HCl Allergy Swelling Verified 01/04/17 08:19 [From Cipro] potassium clavulanate Allergy Swelling Verified 01/04/17 08:19 [From Augmentin] Sulfa (Sulfonamide Allergy Rash/Hives Verified 01/04/17 08:19 Antibiotics) Physical Exam Vitals: Vital Signs Temp Pulse Pulse Resp BP BP Pulse Ox 01/04/17 16:00 70 16 01/04/17 15:00 98.0 F 70 16 137/62 91 L 01/04/17 08:00 16 01/04/17 07:00 98.6 F 71 16 160/74 96 01/04/17 04:07 97.3 F L 70 20 145/73 97 01/04/17 04:00 18 01/04/17 03:05 100.3 F H 70 16 131/61 96 01/04/17 02:32 70 14 135/63 93 L 01/04/17 00:20 98.8 F 72 18 151/64 93 L Intake and Output 01/04/17 01/04/17 01/04/17 06:59 14:59 22:59 Intake Total 0 650 Balance 0 650 Intake: Intake, IV Titration 650 Amount Sodium Chloride 0.9% 1, 500 000 ml @ 100 mls/hr IV . Q10H [facility] Rx#:[id number] cefTRIAXone 1,000 mg In 50 Sodium Chloride 0.9% 50 ml @ 100 mls/hr IVPB Q24HR [facility] Rx#:[id number] metroNIDAZOLE-NS PMX 500 100 mg In Saline 1 100ml.bag @ 100 mls/hr IVPB Q8HR [facility] Rx#:[id number] Oral 0 Other: Voiding Method Toilet Toilet # Voids 0 1 2 # Bowel Movements 1 Weight 61.462 kg On physical examination, patient appears comfortable in no apparent distress. Vital signs are stable. HEENT: Unremarkable. Conjunctivae pink. Sclerae anicteric. Oral cavity no lesions. NECK: No JVD or lymph node enlargement. CHEST: Clear to auscultation. HEART: Regular rate and rhythm. ABDOMEN: Soft. Bowel sounds are positive. No organomegaly. Tender eigastric area EXTREMITIES: No pedal edema. SKIN: No rashes. NEUROLOGIC: Alert and oriented x3. No focal deficits. Results CBC & Chem 7: 01/04/17 01:29 01/04/17 01:29 Labs: Abnormal Lab Results - Last 24 Hours (Table) 01/04/17 01/04/17 01/04/17 Range/Units 01:29 01:29 01:29 WBC 17.6 H (3.8-10.6) k/uL Neutrophils # 16.6 H (1.3-7.7) k/uL Lymphocytes # 0.2 L (1.0-4.8) k/uL PT 22.3 H (9.0-12.0) sec BUN 22 H (7-17) mg/dL Glucose 179 H (74-99) mg/dL Total Bilirubin 1.9 H (0.2-1.3) mg/dL AST 677 H (14-36) U/L ALT 409 H (9-52) U/L Alkaline Phosphatase 225 H (38-126) U/L Amylase 2329 H* (30-110) U/L Lipase 44564 H (23-300) U/L Ur Specific [place] (1.001-1.035) Urine Protein (Negative) Urine Bilirubin (Negative) 01/04/17 Range/Units 07:56 WBC (3.8-10.6) k/uL Neutrophils # (1.3-7.7) k/uL Lymphocytes # (1.0-4.8) k/uL PT (9.0-12.0) sec BUN (7-17) mg/dL Glucose (74-99) mg/dL Total Bilirubin (0.2-1.3) mg/dL AST (14-36) U/L ALT (9-52) U/L Alkaline Phosphatase (38-126) U/L Amylase (30-110) U/L Lipase (23-300) U/L Ur Specific [place] 1.049 H (1.001-1.035) Urine Protein Trace H (Negative) Urine Bilirubin 1+ H (Negative) Microbiology - Last 24 Hours (Table) 01/04/17 07:56 Urine Culture - Preliminary Urine,Voided Assessment and Plan Plan: The presentation of this patient is consistent with acute pancreatitis, possibly GS related in light of the elevation of her liver enzymes. Other abdominal pathology to be kept in mind despite the absence of other findings on CT. Agree with your current management. Will follow with you closely. I will consider an ERCP based on her course and enzyme levels.
[2017-01-05] MEDS: PANTOPRAZOLE 40 MG/10 ML VIAL IVP SCH (08:12)
[2017-01-05] MEDS: ENOXAPARIN 40 MG/0.4 ML SYRINGE SQ SCH (08:14)
[2017-01-05] MEDS: LEVOTHYROXINE 25 MCG TAB PO SCH (08:15)
[2017-01-05] MEDS: POTASSIUM CHLORIDE ER 20 MEQ TAB.ER PO SCH (08:15)
[2017-01-05] MEDS: GABAPENTIN 100 MG CAP PO SCH ×3 (08:15→21:39)
[2017-01-05] MEDS: METOPROLOL TARTRATE 25 MG TAB PO SCH ×2 (08:15→20:37)
--- NOTE | 2017-01-05 08:51 | P.PN ---
Subjective 81-year-old female seen and examined this morning continues to report having epigastric discomfort with a nausea sensation patient states there's no improvement. Did note GI services eval recommendations appreciated. Labs currently are pending this morning patient's initial presentation to the emergency room with epigastric discomfort elevated lipase and amylase and liver enzymes consistent with acute pancreatitis possible gallbladder stone. Patient did have a cholecystectomy 25 years prior GI services considering an ERCP Objective - Vital Signs Vital signs: Vital Signs Temp 97.9 F 01/05/17 07:25 Pulse 72 01/05/17 07:25 Resp 17 01/05/17 07:25 BP 167/74 01/05/17 07:25 Pulse Ox 96 01/05/17 07:25 Intake & Output 01/04/17 01/05/17 01/05/17 18:59 06:59 18:59 Intake Total 650 1300 Balance 650 1300 Intake: Intake, IV Titration 650 1200 Amount Sodium Chloride 0.9% 1, 500 1100 000 ml @ 100 mls/hr IV . Q10H [facility] Rx#:[id number] cefTRIAXone 1,000 mg In 50 100 Sodium Chloride 0.9% 50 ml @ 100 mls/hr IVPB Q24HR [facility] Rx#:[id number] metroNIDAZOLE-NS PMX 500 100 mg In Saline 1 100ml.bag @ 100 mls/hr IVPB Q8HR [facility] Rx#:[id number] Oral 100 Other: Voiding Method Toilet Toilet # Voids 2 2 # Bowel Movements 1 - Exam Physical exam 81-year-old female seen and evaluated sitting up in bed continues to report having epigastric pain Lungs essentially clear adequate air movement on room air Heart S1-S2 audible irregular denying chest pain Abdomen soft not distended tenderness to the epigastric region patient states it radiates around the back nausea sensation no active emesis states no difficulty in urinating Extremities no edema noted. - Labs CBC & Chem 7: 01/04/17 01:29 01/04/17 01:29 Labs: Microbiology - Last 24 Hours (Table) 01/04/17 07:56 Urine Culture - Preliminary Urine,Voided Assessment and Plan Plan: Impression Present on admission intractable acute epigastric abdominal pain with a nausea sensation suspect due to acute pancreatitis present on admission leukocytosis febrile suspect due to early sepsis unclear etiology Present on admission epigastric intractable abdominal pain with nausea with an ultrasound of the gallbladder suspect common bile duct dilatation likely gallstone gallstones Atrial fibrillation controlled ventricular response on anticoagulation Coumadin INR 2.2 Known coronary artery disease prior coronary artery bypass grafting Echocardiogram May 2016 mild pulmonary hypertension with left ventricular systolic function normal with an EF between 55 and 60% History of a colonoscopy EGD at [facility] April 2016 with no acute findings per patient report 06/23/2016 left groin exploration, reduction of incarcerated femoral hernia, midline lower abdominal laparotomy to reduce incarcerated hernia, small bowel resection with primary has phimosis, repair of a left femoral groin hernia sick sinus syndrome status post permanent pacemaker Present on admission epigastric pain consistent with acute pancreatitis possible gallstone related Plan No acute surgical intervention at this time Await further workup per GI service possible ERCP defer to GI Hold Coumadin for now Repeat labs in the morning Keep nothing by mouth with IV fluid for hydration DVT and GI prophylaxis Pain control Will follow with you with further surgical recommendations if warranted The above impression and plan of care have been discussed and directed by signing physician. Marielena Bonilla nurse practitioner acting as scribe for signing physician.
[2017-01-05 08:57] LABS: INR 2.6 (<1.1); Prothrombin Time 24.9 sec (9.0-12.0)
[2017-01-05] MEDS ORDERED: TORSEMIDE 20 MG TAB PO SCH (09:00)
[2017-01-05 09:05] LABS: Basophils % (A) 0 %; CH 28.7; CHCM 30.6; Eosinophils % (A) 0 %; HCT 40.5 % (34.0-46.0); Hypochromasia Slight; Luc % (Auto) 1; Lymphocytes # (A) 0.5 k/uL (1.0-4.8); Lymphocytes % (A) 4 %; MCH 30.3 pg (25.0-35.0); MCHC 32.1 g/dL (31.0-37.0); MCV 94.5 fL (80.0-100.0); Mean Platelet Volume 7.6; Monocytes # (A) 0.4 k/uL (0-1.0); Monocytes % (A) 3 %; Neutrophils # (A) 12.3 k/uL (1.3-7.7); Neutrophils % (A) 92 %; RBC 4.29 m/uL (3.80-5.40); RDW 14.1 % (11.5-15.5); WBC 13.3 k/uL (3.8-10.6); WBC (Perox) 13.62
[2017-01-05 09:10] LABS: ALT 224 U/L (9-52); AST 138 U/L (14-36); Alkaline Phosphatase 184 U/L (38-126); Anion Gap 12 mmol/L; Blood Urea Nitrogen 23 mg/dL (7-17); Calcium 8.5 mg/dL (8.4-10.2); Carbon Dioxide 21 mmol/L (22-30); Chloride 114 mmol/L (98-107); Glucose 105 mg/dL (74-99); Non-African American GFR(MDRD) >60 (>60 ml/min/1.73 sqM); Potassium 3.9 mmol/L (3.5-5.1); Sodium 147 mmol/L (137-145); Total Bilirubin 2.9 mg/dL (0.2-1.3); Total Protein 6.7 g/dL (6.3-8.2)
[2017-01-05 09:14] LABS: Amylase 407 U/L (30-110)
--- NOTE | 2017-01-05 09:26 | P.PN ---
Subjective Principal diagnosis: Elevated liver pancreatic enzymes 81-year-old female admitted with abdominal pain elevated liver pancreatic enzymes with history of cholecystectomy and atrial fibrillation. Coumadin on hold. Abdominal pain still present but improved. Total bilirubin 2.9 today. AST ALT alkaline phosphatase improved. Lipase 686 down from 10,428. INR 2.6. Afebrile. Admission ultrasound CBD 1.2 cm possible sludge. Objective - Vital Signs Vital signs: Vital Signs Temp 97.9 F 01/05/17 07:25 Pulse 72 01/05/17 07:25 Resp 17 01/05/17 07:25 BP 167/74 01/05/17 07:25 Pulse Ox 96 01/05/17 07:25 Intake & Output 01/04/17 01/05/17 01/05/17 18:59 06:59 18:59 Intake Total 650 1300 Balance 650 1300 Intake: Intake, IV Titration 650 1200 Amount Sodium Chloride 0.9% 1, 500 1100 000 ml @ 100 mls/hr IV . Q10H [facility] Rx#:[id number] cefTRIAXone 1,000 mg In 50 100 Sodium Chloride 0.9% 50 ml @ 100 mls/hr IVPB Q24HR [facility] Rx#:[id number] metroNIDAZOLE-NS PMX 500 100 mg In Saline 1 100ml.bag @ 100 mls/hr IVPB Q8HR [facility] Rx#:[id number] Oral 100 Other: Voiding Method Toilet Toilet # Voids 2 2 # Bowel Movements 1 - Exam General appearance: The patient is alert, oriented, in no acute distress. HET: Head is normocephalic and atraumatic. Pupils are equal and reactive. Sclerae dull mildly icteric. Oropharynx is clear without lesions. Neck: Supple without lymphadenopathy. Trachea midline. Heart: S1 S2. Regular rate and rhythm. Lungs: No crackles or wheezes are heard. Abdomen: Soft, mild midepigastric tenderness, nondistended with bowel sounds. No peritoneal signs. No palpable organomegaly or masses. Extremities: Normal skin color and turgor. No cyanosis, rash, ulceration, clubbing, or edema. Radial and pedal pulses are 2/4 bilaterally. Neurological: No focal deficits. Strength and sensation are grossly intact. - Labs CBC & Chem 7: 01/05/17 08:23 01/05/17 08:23 Labs: Abnormal Lab Results - Last 24 Hours (Table) 01/05/17 01/05/17 01/05/17 Range/Units 08:23 08:23 08:23 WBC 13.3 H (3.8-10.6) k/uL Neutrophils # 12.3 H (1.3-7.7) k/uL Lymphocytes # 0.5 L (1.0-4.8) k/uL PT 24.9 H (9.0-12.0) sec Sodium 147 H (137-145) mmol/L Chloride 114 H (98-107) mmol/L Carbon Dioxide 21 L (22-30) mmol/L BUN 23 H (7-17) mg/dL Glucose 105 H (74-99) mg/dL Total Bilirubin 2.9 H (0.2-1.3) mg/dL AST 138 H (14-36) U/L ALT 224 H (9-52) U/L Alkaline Phosphatase 184 H (38-126) U/L Albumin 3.4 L (3.5-5.0) g/dL Amylase 407 H* (30-110) U/L Lipase 686 H (23-300) U/L Microbiology - Last 24 Hours (Table) 01/04/17 07:56 Urine Culture - Preliminary Urine,Voided Assessment and Plan (1) Pancreatitis Narrative/Plan: Acute pancreatitis with history of cholecystectomy and elevated liver enzymes and dilation of CBD possible choledocholithiasis. Status: Acute (2) Elevated liver enzymes Status: Acute (3) Abdominal pain Status: Acute (4) Warfarin-induced coagulopathy Status: Acute Plan: 1. Clear liquid diet. Possible ERCP contingent on clinical course and correction of INR 1.5 or less. Continue to hold Coumadin. We'll reevaluate liver chemistries in a.m. continue supportive measures. We'll follow with you. Plan of care was discussed with patient's daughter Tabatha. Assessment and plan of care discussed with Dr. Fontanez
[2017-01-05] MEDS: HYDROcodone/APAP 5-325MG 1 EACH TAB PO PRN (11:34)
[2017-01-05] MEDS ORDERED: LACTATED RINGERS 1,000 ML IV SCH (14:15)
--- NOTE | 2017-01-05 19:01 | P.PN ---
Subjective Date of service 01/05/2017. Progress note being dictated for Dr. Hubbard Interval history: This is an 81-year-old female admitted with abdominal pain, acute pancreatitis, and multiple other medical issues. LFTs, lipase improving. T bili 2.9. Continues to have mid epigastric abdominal pain but states improved. Tolerating clear liquid diet with no nausea vomiting or diarrhea. INR 2.6, Coumadin on hold. Afebrile. Objective - Vital Signs Vital signs: Vital Signs Temp 97 F L 01/05/17 14:57 Pulse 69 01/05/17 15:17 Resp 18 01/05/17 15:17 BP 164/79 01/05/17 14:57 Pulse Ox 92 L 01/05/17 14:57 Intake & Output 01/04/17 01/05/17 01/05/17 18:59 06:59 18:59 Intake Total 650 1300 800 Balance 650 1300 800 Intake: IV 800 cefTRIAXone 1,000 mg In 50 Sodium Chloride 0.9% 50 ml @ 100 mls/hr IVPB Q24HR [facility] Rx#:[id number] normal saline at 100ml/hr 750 Intake, IV Titration 650 1200 Amount Sodium Chloride 0.9% 1, 500 1100 000 ml @ 100 mls/hr IV . Q10H [facility] Rx#:[id number] cefTRIAXone 1,000 mg In 50 100 Sodium Chloride 0.9% 50 ml @ 100 mls/hr IVPB Q24HR [facility] [place] Rx#:[id number] metroNIDAZOLE-NS PMX 500 100 mg In Saline 1 100ml.bag @ 100 mls/hr IVPB Q8HR [facility] Rx#:[id number] Oral 100 Other: Voiding Method Toilet Toilet Toilet # Voids 2 2 2 # Bowel Movements 1 - Exam PHYSICAL EXAM: VITAL SIGNS: As above GENERAL: [Sitting up in bed, no acute distress] HEENT: [Pupils equal conjunctiva normal. Minimal icterus] NECK: [Supple, no JVD] RESPIRATORY EFFORT:[ Normal] LUNGS: [Diminished, no wheezes rhonchi or crackles] CARDIOVASCULAR[ regular S1-S2, no murmurs rubs or gallops, no edema] GI: [Abdomen soft, nondistended, mild mid epigastric tenderness, positive bowel sounds.] PSYCH: [Alert and oriented -3, mood and affect normal.] NEURO: No focal deficits - Labs CBC & Chem 7: 01/05/17 08:23 07 08:23 Labs: Abnormal Lab Results - Last 24 Hours (Table) 01/05/17 01/05/17 01/05/17 Range/Units 08:23 08:23 08:23 WBC 13.3 H (3.8-10.6) k/uL Neutrophils # 12.3 H (1.3-7.7) k/uL Lymphocytes # 0.5 L (1.0-4.8) k/uL PT 24.9 H (9.0-12.0) sec Sodium 147 H (137-145) mmol/L Chloride 114 H (98-107) mmol/L Carbon Dioxide 21 L (22-30) mmol/L BUN 23 H (7-17) mg/dL Glucose 105 H (74-99) mg/dL Total Bilirubin 2.9 H (0.2-1.3) mg/dL AST 138 H (14-36) U/L ALT 224 H (9-52) U/L Alkaline Phosphatase 184 H (38-126) U/L Albumin 3.4 L (3.5-5.0) g/dL Amylase 407 H* (30-110) U/L Lipase 686 H (23-300) U/L Microbiology - Last 24 Hours (Table) 01/04/17 07:56 Urine Culture - Final Urine,Voided Assessment and Plan Plan: 1. [ Acute severe pancreatitis possibly gallstone pancreatitis, elevated LFTs]. 2. [ Leukocytosis secondary to above]. 3. [ Atrial fibrillation, chronic]. 4. [ History of CHF]. 5. [ Essential hypertension]. 6. [ AICD]. Plan: Continue on current medication regime ,monitoring and symptomatic treatment. Repeat CMP, lipase in a.m. diet advancement as per GI.Continue holding coumadin, possible ERCP. follow closely with GI. Further recommendations to follow The impression and plan of care has been dictated as directed. : I performed a H&P examination of this patient and discussed the same with the dictator. I agree with the dictator's note. Any additional findings/opinions/ etc. will be noted.
[2017-01-06] MEDS: HYDROcodone/APAP 5-325MG 1 EACH TAB PO PRN ×4 (02:54→23:50)
[2017-01-06] MEDS: METOPROLOL TARTRATE 25 MG TAB PO SCH ×2 (08:07→20:52)
[2017-01-06] MEDS: GABAPENTIN 100 MG CAP PO SCH ×3 (08:07→20:52)
[2017-01-06] MEDS: POTASSIUM CHLORIDE ER 20 MEQ TAB.ER PO SCH (08:07)
[2017-01-06] MEDS: ENOXAPARIN 40 MG/0.4 ML SYRINGE SQ SCH (08:07)
[2017-01-06] MEDS: LEVOTHYROXINE 25 MCG TAB PO SCH (08:07)
[2017-01-06] MEDS: PANTOPRAZOLE 40 MG/10 ML VIAL IVP SCH (08:07)
--- NOTE | 2017-01-06 08:08 | P.PN ---
Subjective Patient is an 81-year-old white female who presented with midepigastric abdominal discomfort. She is status post cholecystectomy many years ago however was noted to have probable sludge in her common bile duct. The patient was noted to have an elevated lipase and amylase. She was seen and evaluated by the GI service for possible ERCP. INR was elevated to 2.6, and amylase and lipase have been decreasing. Amylase 2329 down to 407, lipase 10,428 down to 686. Additionally patient's AST, ALT and alkaline phosphatase have decreased however bilirubin yesterday was 2.9. She was started on a clear liquid diet by GI. We are awaiting her a.m. labs. At this time patient states her abdominal discomfort is improved. Objective - Vital Signs Vital signs: Vital Signs Temp 96.8 F L 01/06/17 07:00 Pulse 70 01/06/17 07:00 Resp 16 01/06/17 07:00 BP 152/91 01/06/17 07:00 Pulse Ox 92 L 01/06/17 07:00 Intake & Output 01/05/17 01/06/17 01/06/17 18:59 06:59 18:59 Intake Total 800 Balance 800 Intake: IV 800 cefTRIAXone 1,000 mg In 50 Sodium Chloride 0.9% 50 ml @ 100 mls/hr IVPB Q24HR [facility] Rx#:[id number] normal saline at 100ml/hr 750 Other: Voiding Method Toilet # Voids 2 2 - Constitutional General appearance: Present: average body habitus - Neck Neck: Present: normal ROM - Respiratory Respiratory: bilateral: CTA - Cardiovascular Heart sounds: normal: S1, S2 - Gastrointestinal Gastrointestinal Comment(s): Mild tenderness midepigastric area General gastrointestinal: Present: soft - Psychiatric Psychiatric: Present: A&O x's 3, appropriate affect, intact judgment & insight - Labs CBC & Chem 7: 01/05/17 08:23 01/05/17 08:23 Labs: Abnormal Lab Results - Last 24 Hours (Table) 01/05/17 01/05/17 01/05/17 Range/Units 08:23 08:23 08:23 WBC 13.3 H (3.8-10.6) k/uL Neutrophils # 12.3 H (1.3-7.7) k/uL Lymphocytes # 0.5 L (1.0-4.8) k/uL PT 24.9 H (9.0-12.0) sec Sodium 147 H (137-145) mmol/L Chloride 114 H (98-107) mmol/L Carbon Dioxide 21 L (22-30) mmol/L BUN 23 H (7-17) mg/dL Glucose 105 H (74-99) mg/dL Total Bilirubin 2.9 H (0.2-1.3) mg/dL AST 138 H (14-36) U/L ALT 224 H (9-52) U/L Alkaline Phosphatase 184 H (38-126) U/L Albumin 3.4 L (3.5-5.0) g/dL Amylase 407 H* (30-110) U/L Lipase 686 H (23-300) U/L Microbiology - Last 24 Hours (Table) 01/04/17 07:56 Urine Culture - Final Urine,Voided Assessment and Plan Plan: Impression/plan: 1. Resolving pancreatitis 2. Probable sludge in the common bile duct 3. Coumadin on hold elevated INR Plan: 1. Await a.m. labs 2. Possible ERCP as per GI 3. Patient does not have an acute surgical abdomen at this time
[2017-01-06 08:57] LABS: Basophils % (A) 0 %; CH 28.9; CHCM 31.5; Eosinophils # (A) 0.2 k/uL (0-0.7); Eosinophils % (A) 2 %; HCT 39.8 % (34.0-46.0); Luc # (Auto) 0.11; Luc % (Auto) 1; Lymphocytes # (A) 0.7 k/uL (1.0-4.8); Lymphocytes % (A) 6 %; MCH 30.1 pg (25.0-35.0); MCHC 32.6 g/dL (31.0-37.0); MCV 92.3 fL (80.0-100.0); Mean Platelet Volume 7.7; Monocytes # (A) 0.4 k/uL (0-1.0); Monocytes % (A) 4 %; Neutrophils % (A) 87 %; RBC 4.31 m/uL (3.80-5.40); RDW 14.2 % (11.5-15.5); WBC 10.4 k/uL (3.8-10.6); WBC (Perox) 10.45
[2017-01-06 09:04] LABS: INR 2.2 (<1.1); Prothrombin Time 21.2 sec (9.0-12.0)
[2017-01-06 09:18] LABS: ALT 151 U/L (9-52); AST 63 U/L (14-36); Alkaline Phosphatase 167 U/L (38-126); Amylase 141 U/L (30-110); Anion Gap 10 mmol/L; Blood Urea Nitrogen 20 mg/dL (7-17); Calcium 8.2 mg/dL (8.4-10.2); Carbon Dioxide 20 mmol/L (22-30); Chloride 111 mmol/L (98-107); Glucose 121 mg/dL (74-99); Non-African American GFR(MDRD) >60 (>60 ml/min/1.73 sqM); Potassium 3.6 mmol/L (3.5-5.1); Sodium 141 mmol/L (137-145); Total Bilirubin 1.5 mg/dL (0.2-1.3); Total Protein 6.2 g/dL (6.3-8.2)
--- NOTE | 2017-01-06 10:07 | P.PN ---
Subjective Principal diagnosis: Elevated liver pancreatic enzymes 81-year-old female admitted with abdominal pain elevated liver pancreatic enzymes with history of cholecystectomy and atrial fibrillation. Coumadin on hold. Abdominal pain improved. Total bilirubin improved 1.5 today. AST ALT alkaline phosphatase lipase improved. Afebrile. INR 2.2. Objective - Vital Signs Vital signs: Vital Signs Temp 96.8 F L 01/06/17 07:00 Pulse 70 01/06/17 07:00 Resp 16 01/06/17 07:00 BP 152/91 01/06/17 07:00 Pulse Ox 92 L 01/06/17 07:00 Intake & Output 01/05/17 01/06/17 01/06/17 18:59 06:59 18:59 Intake Total 800 Balance 800 Intake: IV 800 cefTRIAXone 1,000 mg In 50 Sodium Chloride 0.9% 50 ml @ 100 mls/hr IVPB Q24HR [facility] Rx#:[id number] normal saline at 100ml/hr 750 Other: Voiding Method Toilet # Voids 2 2 1 - Exam General appearance: The patient is alert, oriented, in no acute distress. HET: Head is normocephalic and atraumatic. Pupils are equal and reactive. Sclerae anicteric. Oropharynx is clear without lesions. Neck: Supple without lymphadenopathy. Trachea midline. Heart: S1 S2. Regular rate and rhythm. Lungs: No crackles or wheezes are heard. Abdomen: Soft, very mild midepigastric tenderness, nondistended with bowel sounds. No peritoneal signs. No palpable organomegaly or masses. Extremities: Normal skin color and turgor. No cyanosis, rash, ulceration, clubbing, or edema. Radial and pedal pulses are 2/4 bilaterally. Neurological: No focal deficits. Strength and sensation are grossly intact. - Labs CBC & Chem 7: 01/06/17 08:17 01/06/17 08:17 Labs: Abnormal Lab Results - Last 24 Hours (Table) 01/06/17 01/06/17 01/06/17 Range/Units 08:17 08:17 08:17 Neutrophils # 9.0 H (1.3-7.7) k/uL Lymphocytes # 0.7 L (1.0-4.8) k/uL PT 21.2 H (9.0-12.0) sec Chloride 111 H (98-107) mmol/L Carbon Dioxide 20 L (22-30) mmol/L BUN 20 H (7-17) mg/dL Glucose 121 H (74-99) mg/dL Calcium 8.2 L (8.4-10.2) mg/dL Total Bilirubin 1.5 H (0.2-1.3) mg/dL AST 63 H (14-36) U/L ALT 151 H (9-52) U/L Alkaline Phosphatase 167 H (38-126) U/L Total Protein 6.2 L (6.3-8.2) g/dL Albumin 3.0 L (3.5-5.0) g/dL Amylase 141 H (30-110) U/L Microbiology - Last 24 Hours (Table) 01/04/17 07:56 Urine Culture - Final Urine,Voided Assessment and Plan (1) Pancreatitis Narrative/Plan: Acute pancreatitis with history of cholecystectomy and elevated liver enzymes and dilation of CBD suspect passage of choledocholithiasis. Status: Acute (2) Elevated liver enzymes Status: Acute (3) Abdominal pain Status: Acute (4) Warfarin-induced coagulopathy Status: Acute Plan: 1. ERCP not planned at this time as liver chemistries continue to improve. Full liquid diet advance as tolerated. Liver chemistries/INR in a.m. Continue supportive measures. We'll follow with you. Assessment and plan of care discussed with Dr. Fontanez
--- NOTE | 2017-01-06 10:36 | XR ---
EXAMINATION TYPE: XR chest 1V DATE OF EXAM: 01/06/2017 COMPARISON: 12/06/2014 HISTORY: Pain TECHNIQUE: Single frontal view of the chest is obtained. FINDINGS: Hyperinflation noted. Previous surgery, cardiac device and cardiomegaly noted. Apical pleu ral thickening with right apical calcification. IMPRESSION: 1. Cardiomegaly with no definite overt failure.
[2017-01-06 14:39] VITALS: BMI 22.5
--- NOTE | 2017-01-06 17:45 | P.PN ---
Subjective Date of service 01/06/2017. Progress note being dictated for Dr. Hubbard Interval history: This is an 81-year-old female admitted with abdominal pain, acute pancreatitis, and multiple other medical issues. Feels better today, abdominal pain much improved, continued improvement of LFTs, lipase, T bili Tolerated clear liquid diet with no nausea vomiting or diarrhea, diet advanced to full liquids for lunch. INR 2.2. Afebrile. Chest x-ray reporting no definite overt failure. Objective - Vital Signs Vital signs: Vital Signs Temp 98.2 F 01/06/17 15:00 Pulse 70 01/06/17 15:00 Resp 16 01/06/17 15:00 BP 157/74 01/06/17 15:00 Pulse Ox 97 01/06/17 15:00 Intake & Output 01/05/17 01/06/17 01/06/17 18:59 06:59 18:59 Intake Total 800 800 Balance 800 800 Weight 61.462 kg Intake: IV 800 800 cefTRIAXone 1,000 mg In 50 Sodium Chloride 0.9% 50 ml @ 100 mls/hr IVPB Q24HR [facility] Rx#:[id number] normal saline at 100ml/hr 750 800 Other: Voiding Method Toilet # Voids 2 2 2 - Exam PHYSICAL EXAM: VITAL SIGNS: As above GENERAL: [Sitting up in bed, no acute distress] HEENT: [Pupils equal conjunctiva normal. Oral mucosa moist NECK: [Supple, no JVD] RESPIRATORY EFFORT:[ Normal] LUNGS: [Diminished, no wheezes rhonchi or crackles] CARDIOVASCULAR[ regular S1-S2, no murmurs rubs or gallops, no edema] GI: [Abdomen soft, nondistended, minimal mid-epigastric tenderness, positive bowel sounds.] PSYCH: [Alert and oriented -3, mood and affect normal.] NEURO: No focal deficits - Labs CBC & Chem 7: 01/06/17 08:17 01/06/17 08:17 Labs: Abnormal Lab Results - Last 24 Hours (Table) 01/06/17 01/06/17 01/06/17 Range/Units 08:17 08:17 08:17 Neutrophils # 9.0 H (1.3-7.7) k/uL Lymphocytes # 0.7 L (1.0-4.8) k/uL PT 21.2 H (9.0-12.0) sec Chloride 111 H (98-107) mmol/L Carbon Dioxide 20 L (22-30) mmol/L BUN 20 H (7-17) mg/dL Glucose 121 H (74-99) mg/dL Calcium 8.2 L (8.4-10.2) mg/dL Total Bilirubin 1.5 H (0.2-1.3) mg/dL AST 63 H (14-36) U/L ALT 151 H (9-52) U/L Alkaline Phosphatase 167 H (38-126) U/L Total Protein 6.2 L (6.3-8.2) g/dL Albumin 3.0 L (3.5-5.0) g/dL Amylase 141 H (30-110) U/L Assessment and Plan Plan: 1. [ Acute severe pancreatitis possibly gallstone pancreatitis, elevated LFTs improving]. 2. [ Leukocytosis secondary to above, resolved]. 3. [ Atrial fibrillation, chronic]. 4. [ History of CHF]. 5. [ Essential hypertension]. 6. [ AICD]. Plan: Continue on current medication regime ,monitoring and symptomatic treatment. Repeat CMP, lipase, PT/INR in a.m. diet advancement as per GI.discharge planning in progress for tomorrow pending GI clearance. Further recommendations to follow. The impression and plan of care has been dictated as directed. : I performed a H&P examination of this patient and discussed the same with the dictator. I agree with the dictator's note. Any additional findings/opinions/ etc. will be noted.
[2017-01-07] MEDS: MORPHINE SULFATE 2 MG/ML SYRINGE IVP PRN (04:31)
[2017-01-07 07:21] VITALS: RESP 16
[2017-01-07] MEDS: HYDROcodone/APAP 5-325MG 1 EACH TAB PO PRN ×2 (07:51→14:17)
[2017-01-07 07:54] LABS: Basophils % (A) 0 %; CH 28.8; CHCM 30.8; Eosinophils # (A) 0.1 k/uL (0-0.7); Eosinophils % (A) 1 %; HCT 37.7 % (34.0-46.0); HDW 2.39; Hypochromasia Slight; Luc # (Auto) 0.12; Luc % (Auto) 1; Lymphocytes % (A) 7 %; MCH 29.7 pg (25.0-35.0); MCHC 31.7 g/dL (31.0-37.0); MCV 93.7 fL (80.0-100.0); Mean Platelet Volume 7.7; Monocytes # (A) 0.6 k/uL (0-1.0); Monocytes % (A) 4 %; Neutrophils # (A) 12.1 k/uL (1.3-7.7); Neutrophils % (A) 87 %; RBC 4.02 m/uL (3.80-5.40); RDW 13.8 % (11.5-15.5); WBC 13.9 k/uL (3.8-10.6); WBC (Perox) 14.86
[2017-01-07 08:08] LABS: ALT 105 U/L (9-52); AST 35 U/L (14-36); Alkaline Phosphatase 143 U/L (38-126); Amylase 77 U/L (30-110); Anion Gap 7 mmol/L; Blood Urea Nitrogen 16 mg/dL (7-17); Calcium 8.3 mg/dL (8.4-10.2); Carbon Dioxide 22 mmol/L (22-30); Chloride 113 mmol/L (98-107); Glucose 113 mg/dL (74-99); Non-African American GFR(MDRD) >60 (>60 ml/min/1.73 sqM); Potassium 3.8 mmol/L (3.5-5.1); Sodium 142 mmol/L (137-145); Total Bilirubin 1.1 mg/dL (0.2-1.3); Total Protein 5.7 g/dL (6.3-8.2)
[2017-01-07 08:14] LABS: INR 1.8 (<1.1); Prothrombin Time 17.6 sec (9.0-12.0)
--- NOTE | 2017-01-07 08:36 | P.PN ---
Subjective Patient is an 81-year-old white female who presented with midepigastric abdominal discomfort. She is status post cholecystectomy many years ago however was noted to have probable sludge in her common bile duct. The patient was noted to have an elevated lipase and amylase. She was seen and evaluated by the GI service for possible ERCP. The patient's lipase and amylase normalized and it was felt that she did not need an ERCP at this admission. However last night she began having increased midepigastric pain again was now it seems to radite to the left lower quadrant. Objective - Vital Signs Vital signs: Vital Signs Temp 96.9 F L 01/07/17 07:00 Pulse 72 01/07/17 07:00 Resp 16 01/07/17 07:00 BP 98/60 01/07/17 07:00 Pulse Ox 94 L 01/07/17 07:00 Intake & Output 01/06/17 01/07/17 01/07/17 18:59 06:59 18:59 Intake Total 800 50 Balance 800 50 Weight 61.462 kg Intake: IV 800 normal saline at 100ml/hr 800 Intake, IV Titration 50 Amount cefTRIAXone 1,000 mg In 50 Sodium Chloride 0.9% 50 ml @ 100 mls/hr IVPB Q24HR [facility] Rx#:[id number] Other: Voiding Method Toilet # Voids 2 2 # Bowel Movements 1 - Constitutional General appearance: Present: average body habitus - Respiratory Respiratory: bilateral: CTA - Cardiovascular Rhythm: regular Heart sounds: normal: S1, S2 - Gastrointestinal Gastrointestinal Comment(s): Mild tender to deep palpation midepigastric and left lower quadrant area no guarding or rebound General gastrointestinal: Present: normal bowel sounds, soft - Psychiatric Psychiatric: Present: A&O x's 3, appropriate affect, intact judgment & insight - Labs CBC & Chem 7: 01/06/17 08:17 01/07/17 07:30 Labs: Abnormal Lab Results - Last 24 Hours (Table) 01/06/17 01/06/17 01/06/17 Range/Units 08:17 08: 08:17 Neutrophils # 9.0 H (1.3-7.7) k/uL Lymphocytes # 0.7 L (1.0-4.8) k/uL PT 21.2 H (9.0-12.0) sec Chloride 111 H (98-107) mmol/L Carbon Dioxide 20 L (22-30) mmol/L BUN 20 H (7-17) mg/dL Glucose 121 H (74-99) mg/dL Calcium 8.2 L (8.4-10.2) mg/dL Total Bilirubin 1.5 H (0.2-1.3) mg/dL AST 63 H (14-36) U/L ALT 151 H (9-52) U/L Alkaline Phosphatase 167 H (38-126) U/L Total Protein 6.2 L (6.3-8.2) g/dL Albumin 3.0 L (3.5-5.0) g/dL Amylase 141 H (30-110) U/L 01/07/17 01/07/17 Range/Units 07:30 07:30 Neutrophils # (1.3-7.7) k/uL Lymphocytes # (1.0-4.8) k/uL PT 17.6 H (9.0-12.0) sec Chloride 113 H (98-107) mmol/L Carbon Dioxide (22-30) mmol/L BUN (7-17) mg/dL Glucose 113 H (74-99) mg/dL Calcium 8.3 L (8.4-10.2) mg/dL Total Bilirubin (0.2-1.3) mg/dL AST (14-36) U/L ALT 105 H (9-52) U/L Alkaline Phosphatase 143 H (38-126) U/L Total Protein 5.7 L (6.3-8.2) g/dL Albumin 2.8 L (3.5-5.0) g/dL Amylase (30-110) U/L Assessment and Plan Plan: Impression/plan: 1. Resolving pancreatitis 2. Probable sludge in the common bile duct 3. Increase midepigastric pain this a.m. Plan: 1. Await a.m. labs 2. Patient does not have an acute surgical abdomen at this time
[2017-01-07 08:47] LABS: Creatine Kinase 42 U/L (30-135)
[2017-01-07 09:00] LABS: Troponin I <0.012 ng/mL (0.000-0.034)
[2017-01-07 09:01] LABS: Creatine Kinase MB 1.2 ng/mL (0.0-2.4)
--- NOTE | 2017-01-07 10:05 | P.PN ---
Subjective Principal diagnosis: Elevated liver pancreatic enzymes 81-year-old female admitted with suspected gallstone pancreatitis with history of cholecystectomy and atrial fibrillation. Coumadin on hold. Pancreatic enzymes normalized. Total bilirubin improved 1.1 today. AST ALT alkaline phosphatase lipase improved. Afebrile. INR 1.8. Around 4 AM this morning she developed severe abdominal pain located mostly in the left lower quadrant/groin radiating up to the left upper quadrant settling under her rib. Increased left upper quadrant pain with inspiration. EKG performed. Troponin less than 0.012. Passing flatus and bowel movements. Denies epigastric pain. Objective - Vital Signs Vital signs: Vital Signs Temp 96.9 F L 01/07/17 07:00 Pulse 72 01/07/17 07:00 Resp 16 01/07/17 07:00 BP 98/60 01/07/17 07:00 Pulse Ox 94 L 01/07/17 07:00 Intake & Output 01/06/17 01/07/17 01/07/17 18:59 06:59 18:59 Intake Total 800 50 Balance 800 50 Weight 61.462 kg Intake: IV 800 normal saline at 100ml/hr 800 Intake, IV Titration 50 Amount cefTRIAXone 1,000 mg In 50 Sodium Chloride 0.9% 50 ml @ 100 mls/hr IVPB Q24HR [facility] Rx#:[id number] Other: Voiding Method Toilet # Voids 2 2 # Bowel Movements 1 - Exam General appearance: The patient is alert, oriented, in no acute distress. HET: Head is normocephalic and atraumatic. Pupils are equal and reactive. Sclerae anicteric. Oropharynx is clear without lesions. Neck: Supple without lymphadenopathy. Trachea midline. Heart: S1 S2. Regular rate and rhythm. Lungs: No crackles or wheezes are heard. Abdomen: Soft, very mild tenderness left upper quadrant along left mid axillary line as well as left lower quadrant, nondistended with bowel sounds. No peritoneal signs. No palpable organomegaly or masses. Extremities: Normal skin color and turgor. No cyanosis, rash, ulceration, clubbing, or edema. Radial and pedal pulses are 2/4 bilaterally. Neurological: No focal deficits. Strength and sensation are grossly intact. - Labs CBC & Chem 7: 01/07/17 07:30 01/07/17 07:30 Labs: Abnormal Lab Results - Last 24 Hours (Table) 01/07/17 01/07/17 01/07/17 Range/Units 07:30 07:30 07:30 WBC 13.9 H (3.8-10.6) k/uL Neutrophils # 12.1 H (1.3-7.7) k/uL PT 17.6 H (9.0-12.0) sec Chloride 113 H (98-107) mmol/L Glucose 113 H (74-99) mg/dL Calcium 8.3 L (8.4-10.2) mg/dL ALT 105 H (9-52) U/L Alkaline Phosphatase 143 H (38-126) U/L Total Protein 5.7 L (6.3-8.2) g/dL Albumin 2.8 L (3.5-5.0) g/dL Assessment and Plan (1) Pancreatitis Narrative/Plan: Acute biliary pancreatitis with history of cholecystectomy and elevated liver enzymes and dilation of CBD suspect passage of choledocholithiasis. Status: Acute (2) Elevated liver enzymes Status: Acute (3) Abdominal pain Status: Acute (4) Warfarin-induced coagulopathy Status: Acute Plan: 1. ERCP not planned at this time as liver chemistries continue to improve. Continue supportive measures. General surgery following. Recommend CT imaging if abdominal pain does not improve; was discussed with medical service nurse practitioner James Jarvis. MRI imaging contraindicated secondary to history of pacemaker. We'll follow with you. Assessment and plan of care discussed with Dr. Fontanez
[2017-01-07] MEDS ORDERED: RX INFO: IV CONTRAST WAS GIVEN 1 EACH MISC MISCELLANE PRN (10:40)
[2017-01-07] MEDS ORDERED: HYDROmorphone 1 MG/ML 1 ML SYRINGE ONE (11:06)
[2017-01-07] MEDS ORDERED: HYDROmorphone 1 MG/ML 1 ML SYRINGE IVP STA (11:07)
--- NOTE | 2017-01-07 12:58 | CT ---
EXAMINATION TYPE: CT abdomen pelvis w con DATE OF EXAM: 01/07/2017 COMPARISON: 06/23/2016, 01/04/2017 HISTORY: Lt side pain CT DLP: 488.5 mGycm Automated exposure control for dose reduction was used. CONTRAST: CT scan of the abdomen pelvis is performed with IV Contrast, patient injected with 100 mL of Omnipaqu e 350. FINDINGS- LUNG BASES-heart is markedly enlarged and there are cardiac leads and small bilateral effusions. Subs egmental consolidation noted. LIVER/GB-mild intrahepatic ductal dilation with evidence of previous cholecystectomy which likely acc ounts for the finding.. PANCREAS- No gross abnormality is seen. SPLEEN- No gross abnormality is seen. ADRENALS- No gross abnormality is seen. KIDNEYS/BLADDER- no hydronephrosis nephrolithiasis or renal mass. BOWEL-bowel gas pattern nonspecific with diverticulosis noted. Stomach is decompressed and limited as sessment. There is a small hiatal hernia. There is evidence of previous bowel surgery. Diverticulosis of the colon with a nonspecific gas pattern and no diagnostic evidence of obstruction LYMPH NODES- No greater than 1cm abdominal or pelvic lymph nodes are appreciated. OSSEOUS STRUCTURES-multilevel degenerative change of the spine with grade 1 anterolisthesis L4 on L5. Large pelvic mass could be correlated with ultrasound. Measures approximately 5 to 6 cm. OTHER- there is ascites. Ascites somewhat hyperintense a hemorrhagic component suggesting. Additiona lly is inflammation within the left abdomen. There are couple soft tissue nodule seen anteriorly jeet g the anterior abdominal wall and there is a tubular hyperdense structure within the anterior left ab domen. Atherosclerotic change of the aorta. No evidence of aneurysm. Shotty adenopathy in the inguina l region. Soft tissue calcification the right gluteal region. Report called to the patient's nurse. IMPRESSION- 1. New ascites with hyperdense fluid suggestive of hemorrhagic component. Additionally within the lef t upper quadrant there is a tubular hyperdensity extending inferiorly. This may represent active hemo rrhage from a mesenteric vessel. Adjacent density may represent inflammation or adjacent hemorrhage r ather than adenopathy or neoplasm. Foreign body not entirely excluded but felt less likely. Report di scussed with referring surgeon Dr. Jignesh Morocho. 2. 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 3. Diverticulosis of the colon.
--- NOTE | 2017-01-07 13:04 | CT ---
EXAMINATION TYPE: CT angio chest DATE OF EXAM: 01/07/2017 12:18 PM COMPARISON: 01/04/2017 HISTORY: Chest pain CT DLP: 178.7 mGycm Automated exposure control for dose reduction was used. CONTRAST: CTA scan of the thorax is performed with IV Contrast, patient injected with 100 mL of Omnipaque 350, pulmonary embolism protocol. . FINDINGS: LUNGS: No pneumothorax. Calcification the tracheobronchial tree noted. There is diminished enhancemen t thoracic aortic aneurysm along the descending aorta likely related to phase of imaging. Appears wel l-opacified on the CT of the abdomen. Atherosclerotic changes are seen and there is evidence of bilat eral pleural effusions and a small amount of intra-abdominal ascites. Changes suggestive of chronic i nterstitial lung disease and COPD MEDIASTINUM: The heart is enlarged. Cardiac device noted. Sternotomy wires are seen. Pulmonary vascul ature enhances normally. Shotty adenopathy in the mediastinum noted. OTHER: No additional significant abnormality is seen. IMPRESSION: 1. NO CT EVIDENCE OF PULMONARY EMBOLISM 2. CARDIOMEGALY AND BILATERAL PLEURAL EFFUSIONS WITH FINDINGS SUGGESTIVE OF COPD AND CHRONIC INTERSTI TIAL LUNG DISEASE. 3. Coronary artery calcification
[2017-01-07] MEDS: METOPROLOL TARTRATE 25 MG TAB PO SCH (14:17)
[2017-01-07] MEDS: GABAPENTIN 100 MG CAP PO SCH (14:17)
[2017-01-07] MEDS: LEVOTHYROXINE 25 MCG TAB PO SCH (14:17)
[2017-01-07] MEDS: PANTOPRAZOLE 40 MG/10 ML VIAL IVP SCH (14:17)
[2017-01-07] MEDS: POTASSIUM CHLORIDE ER 20 MEQ TAB.ER PO SCH (14:18)
[2017-01-07] MEDS ORDERED: HYDROmorphone 1 MG/ML 1 ML SYRINGE IVP PRN (14:19)
[2017-01-07] MEDS: ENOXAPARIN 40 MG/0.4 ML SYRINGE SQ SCH (15:06)
--- NOTE | 2017-01-07 15:18 | P.DS ---
Providers Date of admission: 01/04/17 02:45 Expected date of discharge: 01/07/17 Attending physician: Raiza Hubbard Consults: 01/04/17 02:46 Consult Physician Routine Consulting Provider: Prashant Fontanez Consult Reason/Comments: choledocho Do you want consulting provider notified?: Yes 01/04/17 09:18 Consult Physician Urgent Consulting Provider: Donna Valente Consult Reason/Comments: abdominal pain, elevated enzymes, did prior surgery on pt. Do you want consulting provider notified?: Yes Primary care physician: Rashawn Farah [facility] Course: Final Diagnoses: 1. [ Acute severe pancreatitis possibly gallstone pancreatitis, elevated LFTs improving]. 2. [ Leukocytosis secondary to above, resolved]. 3. [ Atrial fibrillation, chronic]. 4. [ History of CHF]. 5. [ Essential hypertension]. 6. [ AICD]. 7. Acute radiating left lower quadrant pain, and, suggestive of mesenteric bleed per CT and surgeons review. 8. 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 Around 4 AM patient developed left groin pain radiating up into the left lower quadrant, further radiating up under left rib cage accompanied by a significant left upper quadrant pain upon inspiration. Last bowel movement yesterday, passing flatus. CTA reported no evidence of pulmonary embolism. Bilateral pleural effusions .CT performed suggestive of new ascites with hyperdense fluid ,mesenteric bleed , large pelvic mass likely related to uterine neoplasm, probable fibroids. Evaluated by surgery with transfer to higher level of care/tertiary center recommended. Pancreatic enzymes normalized, LFTs improving, total bili 1.1. Coumadin on hold, INR 1.8. Troponin less than 0.012. EKG. Hemoglobin decreased by 1 g currently 12. Patient is being transferred to tertiary center in a stable condition with guarded prognosis. The impression and plan of care has been dictated as directed as a scribe. : I performed a H&P examination of this patient and discussed the same with the dictator. I agree with the dictator's note. Any additional findings/opinions/ etc. will be noted. Patient Condition at Discharge: Stable Plan - Discharge Summary New Discharge Prescriptions: Continue Gabapentin [Neurontin] 100 mg PO TID HYDROcodone/APAP 5-325MG [[place] 5-325] 1 tab PO Q6HR PRN PRN Reason: Pain Levothyroxine Sodium [Synthroid] 25 mcg PO DAILY Metoprolol Tartrate [Lopressor] 25 mg PO BID Discontinued Aspirin 81 mg PO DAILY Potassium Chloride ER [K-Dur 20] 20 meq PO DAILY Melatonin 9 mg PO HS PRN PRN Reason: Insomnia Torsemide [Demadex] 20 mg PO DAILY metFORMIN HCL [Glucophage] 500 mg PO DAILY Warfarin [Coumadin] 3 mg PO HS #7 tab Discharge Medication List Gabapentin [Neurontin] 100 mg PO TID 10/08/14 [History] HYDROcodone/APAP 5-325MG [[place] 5-325] 1 tab PO Q6HR PRN 10/08/14 [History] Levothyroxine Sodium [Synthroid] 25 mcg PO DAILY 06/23/16 [History] Metoprolol Tartrate [Lopressor] 25 mg PO BID 06/23/16 [History] Follow up Appointment(s)/Referral(s): Prashant Fontanez MD [STAFF PHYSICIAN] - 1 Week Rashawn Farah MD [Primary Care Provider] - 3 Days Patient Instructions/Handouts: Pancreatitis (DC) Activity/Diet/Wound Care/Special Instructions: Protonix 40 mg IV push daily [facility] Discharge Disposition: OTHER INSTITUTION NOT DEFINED
[2017-01-07 15:32] VITALS: BP 148/78; PULSE 70; TEMP 97.5
--- NOTE | 2017-01-07 15:41 | P.PN ---
Progress Note - Text Patient underwent a computed tomography scan of the abdomen secondary to her abdominal discomfort. Computed tomography scan was consistent with a mesenteric bleed. I had a conversation with the patient as well as her daughter regarding the inability to do an angiographic embolization should this become necessary. Therefore the patient wishes to be transferred to [facility]. The patient is hemodynamically stable and her last hemoglobin was 12. She understands that if she were to remain here and continue to bleed that open operation would be our only alternative for her; as it may be possible that she could be treated more conservatively at a tertiary care facility she wishes transfer. At this time her abdomen is mildly distended with some mild diffuse tenderness. She does not have any guarding or rebound. She remains hemodynamically stable. I discussed the case with her medicine team and transferred is going to be initiated.
[2017-01-07] MEDS ORDERED: WARFARIN 3 MG TAB PO SCH (21:00)
== END 2017-01-07 16:52 | disposition short-term general hospital (02) | DRG 438 ==
LOC: EC 00:14 → 4MS4W 02:45
PROVIDERS: ADMIT Hospitalist; ATTEND Hospitalist
DX: K85.10 Biliary acute pancreatitis without necrosis or infection (principal); K66.1 Hemoperitoneum; I27.2 Other secondary pulmonary hypertension; I11.0 Hypertensive heart disease with heart failure; I50.9 Heart failure, unspecified; I48.2 Chronic atrial fibrillation; I25.10 Atherosclerotic heart disease of native coronary artery without angina pectoris; E11.9 Type 2 diabetes mellitus without complications; Z95.810 Presence of automatic (implantable) cardiac defibrillator; D25.9 Leiomyoma of uterus, unspecified; E03.9 Hypothyroidism, unspecified; D49.59 Neoplasm of unspecified behavior of other genitourinary organ; R79.1 Abnormal coagulation profile; K21.9 Gastro-esophageal reflux disease without esophagitis; M19.91 Primary osteoarthritis, unspecified site; T45.515A Adverse effect of anticoagulants, initial encounter; Z95.1 Presence of aortocoronary bypass graft; Z98.49 Cataract extraction status, unspecified eye; Z95.2 Presence of prosthetic heart valve; Z90.49 Acquired absence of other specified parts of digestive tract; Z79.01 Long term (current) use of anticoagulants; Z79.84 Long term (current) use of oral hypoglycemic drugs; Z79.82 Long term (current) use of aspirin; Z79.899 Other long term (current) drug therapy; Z88.1 Allergy status to other antibiotic agents; Z88.2 Allergy status to sulfonamides; Z88.8 Allergy status to other drugs, medicaments and biological substances
CPT/HCPCS: 36415; 71010; 71275; 74177; 75635; 76705; 80053; 80074; 81003; 82150; 82550; 82553; 83605; 83690; 84484; 85025; 85379; 85610; 85730; 87086; 93005; 96365; 96375; 99285

== ENCOUNTER 2018-09-20 22:32 | Inpatient (IN) | payer MEDICARE ==
[2018-09-20] MEDS ORDERED: IBUPROFEN 600 MG TAB PO STA (22:42)
[2018-09-20] MEDS ORDERED: ACETAMINOPHEN TAB 500 MG TAB PO STA (22:42)
--- NOTE | 2018-09-20 22:43 | ED ---
Fever HPI - General Chief Complaint: Fever Stated Complaint: Fever,poss stroke, tremors Time Seen by Provider: 09/20/18 22:41 Source: patient, family, RN notes reviewed, old records reviewed Mode of arrival: wheelchair Limitations: no limitations - History of Present Illness Initial Comments: This is a 3-year-old female the ER for evaluation of fever. Febrile illness 3 days. Patient is had prior evaluation by both family doctor and had outpatient lab test x-ray which per family improved to be negative. Patient states she is is not feel well with occasional cough does admit to fever. Weakness dehydration. Family states patient's activity level is decreased oral intake is decreased appetite is decreased. Symptoms worsening increasingly throughout the last 2 days MD Complaint: fever, malaise, weakness -: days(s) (3) Temperature Source: subjective, oral Associated Symptoms: chills, myalgias, cough Treatments Prior to Arrival: Acetaminophen, Ibuprofen - Related Data Home Medications Medication Instructions Recorded Confirmed Gabapentin [Neurontin] 100 mg PO TID 10/08/14 09/20/18 Levothyroxine Sodium [Synthroid] 25 mcg PO DAILY 06/23/16 09/20/18 Ferrous Sulfate [Iron (65 MG 325 mg PO Q72H 06/03/17 09/20/18 Elemental)] Lovastatin [Mevacor] 20 mg PO DAILY 06/03/17 09/20/18 Aspirin 81 mg PO DAILY 06/06/17 09/20/18 Esomeprazole Magnesium [NexIUM] 20 mg PO BID 06/06/17 09/20/18 Azithromycin [Zithromax Z-pack] See Taper PO DAILY 09/20/18 09/20/18 Docusate [Colace] 100 mg PO DAILY 09/20/18 09/20/18 Metoprolol Tartrate [Lopressor] 25 mg PO BID 09/20/18 09/20/18 Torsemide [Demadex] 10 mg PO DAILY 09/20/18 09/20/18 Warfarin Sodium [Coumadin] 3 mg PO HS 09/20/18 09/20/18 predniSONE 40 mg PO DAILY 09/20/18 09/20/18 Previous Rx's Medication Instructions Recorded HYDROcodone/APAP 5-325MG [[place] 1 tab PO TID PRN #15 tab 06/09/17 5-325] Sennosides [Senokot] 8.6 mg PO DAILY PRN #30 tab 06/09/17 Allergies Allergy/AdvReac Type Severity Reaction Status Date / Time amoxicillin trihydrate Allergy Swelling Verified 09/20/18 22:51 [From Augmentin] ciprofloxacin [From Cipro] Allergy Swelling Verified 09/20/18 22:51 ciprofloxacin HCl Allergy Swelling Verified 09/20/18 22:51 [From Cipro] potassium clavulanate Allergy Swelling Verified 09/20/18 22:51 [From Augmentin] Sulfa (Sulfonamide Allergy Rash/Hives Verified 09/20/18 22:51 Antibiotics) Review of Systems ROS Statement: Those systems with pertinent positive or pertinent negative responses have been documented in the HPI. ROS Other: All systems not noted in ROS Statement are negative. Past Medical History Past Medical History: Atrial Fibrillation, Heart Failure, Diabetes Mellitus, GERD/Reflux, Hyperlipidemia, Hypertension, Osteoarthritis (OA), Pneumonia, Sleep Apnea/CPAP/BIPAP, Thyroid Disorder Additional Past Medical History / Comment(s): herr's esophagus 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/16, incarcerated hernia in bowel Past Anesthesia/Blood Transfusion Reactions: No Reported Reaction Type of Cardiac Device: Permanent Pacemaker Device Placement Date:: 2011 Past Psychological History: No Psychological Hx Reported Smoking Status: Never smoker Past Alcohol Use History: None Reported Past Drug Use History: None Reported - Past Family History Father Family Medical History: Myocardial Infarction ([place]) Mother Family Medical History: Osteoarthritis (OA) General Exam Limitations: no limitations General appearance: alert, in no apparent distress Head exam: Present: atraumatic, normocephalic, normal inspection Eye exam: Present: normal appearance, PERRL, EOMI. Absent: scleral icterus, conjunctival injection, periorbital swelling ENT exam: Present: normal exam, mucous membranes moist Neck exam: Present: normal inspection. Absent: tenderness, meningismus, lymphadenopathy Respiratory exam: Present: wheezes, decreased breath sounds, prolonged expiratory. Absent: respiratory distress, rhonchi, stridor Cardiovascular Exam: Present: normal rhythm, tachycardia, normal heart sounds. Absent: systolic murmur, diastolic murmur, rubs, gallop, clicks GI/Abdominal exam: Present: soft, normal bowel sounds. Absent: distended, tenderness, guarding, rebound, rigid Extremities exam: Present: normal inspection, full ROM, normal capillary refill. Absent: tenderness, pedal edema, joint swelling, calf tenderness Back exam: Present: normal inspection Neurological exam: Present: alert, oriented X3, CN II-XII intact Psychiatric exam: Present: normal affect, normal mood Skin exam: Present: warm, dry, intact, normal color. Absent: rash Course Vital Signs 09/20/18 22:33 Temperature 100 F H Pulse Rate 108 H Respiratory 20 Rate Blood Pressure 146/61 O2 Sat by Pulse 93 L Oximetry - Reevaluation(s) Reevaluation #1: 09/20/18 23:17 Medical records reviewed Reevaluation #2: 09/20/18 23:17 Patient improved with symptomatic support Medical Decision Making - Medical Decision Making 53 female presenting with pneumonia. Patient will be admitted for IV antibiotics breathing treatments and monitoring of cardiopulmonary status. Pain control - Lab Data Result diagrams: 09/20/18 23:12 09/20/18 23:12 Lab Results 09/20/18 09/20/18 09/20/18 Range/Units 23:12 23:12 23:12 WBC 12.5 H (3.8-10.6) k/uL RBC 4.23 (3.80-5.40) m/uL Hgb 12.3 (11.4-16.0) gm/dL Hct 38.7 (34.0-46.0) % MCV 91.5 (80.0-100.0) fL MCH 29.1 (25.0-35.0) pg MCHC 31.8 (31.0-37.0) g/dL RDW 14.2 (11.5-15.5) % Plt Count 221 (150-450) k/uL Neutrophils % (Manual) 81 % Band Neutrophils % 9 % Lymphocytes % (Manual) 5 % Monocytes % (Manual) 6 % Neutrophils # (Manual) 11.20 H (1.3-7.7) k/uL Lymphocytes # (Manual) 0.63 L (1.0-4.8) k/uL Monocytes # (Manual) 0.75 (0-1.0) k/uL Nucleated RBCs 0 (0-0) /100 WBC Manual Slide Review Performed PT (9.0-12.0) sec INR (<1.2) APTT (22.0-30.0) sec Sodium 137 (137-145) mmol/L Potassium 5.2 H (3.5-5.1) mmol/L Chloride 104 (98-107) mmol/L Carbon Dioxide 22 (22-30) mmol/L Anion Gap 11 mmol/L BUN 28 H (7-17) mg/dL Creatinine 1.04 (0.52-1.04) mg/dL Est GFR (CKD-EPI)AfAm 57 (>60 ml/min/1.73 sqM) Est GFR (CKD-EPI)NonAf 50 (>60 ml/min/1.73 sqM) Glucose 175 H (74-99) mg/dL Plasma Lactic Acid Joey 1.5 (0.7-2.0) mmol/L Calcium 9.0 (8.4-10.2) mg/dL Phosphorus 3.2 (2.5-4.5) mg/dL Magnesium 2.1 (1.6-2.3) mg/dL Total Bilirubin 1.1 (0.2-1.3) mg/dL AST 41 H (14-36) U/L ALT 24 (9-52) U/L Alkaline Phosphatase 40 (38-126) U/L Troponin I (0.000-0.034) ng/mL Total Protein 7.4 (6.3-8.2) g/dL Albumin 3.9 (3.5-5.0) g/dL Influenza Type A RNA (Not Detectd) Influenza Type B (PCR) (Not Detectd) 09/20/18 09/20/18 09/20/18 Range/Units 23:12 23:12 23:30 WBC (3.8-10.6) k/uL RBC (3.80-5.40) m/uL Hgb (11.4-16.0) gm/dL Hct (34.0-46.0) % MCV (80.0-100.0) fL MCH (25.0-35.0) pg MCHC (31.0-37.0) g/dL RDW (11.5-15.5) % Plt Count (150-450) k/uL Neutrophils % (Manual) % Band Neutrophils % % Lymphocytes % (Manual) % Monocytes % (Manual) % Neutrophils # (Manual) (1.3-7.7) k/uL Lymphocytes # (Manual) (1.0-4.8) k/uL Monocytes # (Manual) (0-1.0) k/uL Nucleated RBCs (0-0) /100 WBC Manual Slide Review PT 17.5 H (9.0-12.0) sec INR 1.8 H (<1.2) APTT 32.3 H (22.0-30.0) sec Sodium (137-145) mmol/L Potassium (3.5-5.1) mmol/L Chloride (98-107) mmol/L Carbon Dioxide (22-30) mmol/L Anion Gap mmol/L BUN (7-17) mg/dL Creatinine (0.52-1.04) mg/dL Est GFR (CKD-EPI)AfAm (>60 ml/min/1.73 sqM) Est GFR (CKD-EPI)NonAf (>60 ml/min/1.73 sqM) Glucose (74-99) mg/dL Plasma Lactic Acid Joey (0.7-2.0) mmol/L Calcium (8.4-10.2) mg/dL Phosphorus (2.5-4.5) mg/dL Magnesium (1.6-2.3) mg/dL Total Bilirubin (0.2-1.3) mg/dL AST (14-36) U/L ALT (9-52) U/L Alkaline Phosphatase (38-126) U/L Troponin I <0.012 (0.000-0.034) ng/mL Total Protein (6.3-8.2) g/dL Albumin (3.5-5.0) g/dL Influenza Type A RNA Not Detected (Not Detectd) Influenza Type B (PCR) Not Detected (Not Detectd) - EKG Data -: EKG Interpreted by Me (EKG shows paced rhythm rate of 1, OR 260, QRS 120, QTC 586) - Radiology Data Radiology results: report reviewed (CT brain is negative chest x-rays positive for pneumonia), image reviewed Disposition Clinical Impression: CHF (congestive heart failure), Pneumonia, Community acquired pneumonia, Fever Disposition: ADMITTED IP TO THIS HOSP Condition: Undetermined Instructions (If sedation given, give patient instructions): Fever in Adults (ED) Is patient prescribed a controlled substance at d/c from ED?: No Referrals: Rashawn Farah MD [Primary Care Provider] - 1-2 days
[2018-09-20] MEDS: SODIUM CHLORIDE 0.9% 1,000 ML IV STA (23:32)
[2018-09-20 23:33] LABS: HCT 38.7 % (34.0-46.0); HGB 12.3 gm/dL (11.4-16.0); MCH 29.1 pg (25.0-35.0); MCHC 31.8 g/dL (31.0-37.0); MCV 91.5 fL (80.0-100.0); Mean Platelet Volume 7.6; Platelet Count 221 k/uL (150-450); RBC 4.23 m/uL (3.80-5.40); RDW 14.2 % (11.5-15.5); WBC 12.5 k/uL (3.8-10.6)
[2018-09-20 23:44] LABS: Albumin 3.9 g/dL (3.5-5.0); INR 1.8 (<1.2); Magnesium 2.1 mg/dL (1.6-2.3); Partial Thromboplastin Time 32.3 sec (22.0-30.0); Phosphorus 3.2 mg/dL (2.5-4.5); Prothrombin Time 17.5 sec (9.0-12.0); Total Bilirubin 1.1 mg/dL (0.2-1.3); Total Protein 7.4 g/dL (6.3-8.2)
[2018-09-20 23:57] LABS: Band Neutrophils % 9 %; Lymphocytes # (M) 0.63 k/uL (1.0-4.8); Monocytes # (M) 0.75 k/uL (0-1.0); Neutrophils % (M) 81 %; Nucleated Red Blood Cells 0 /100 WBC (0-0); Total Cells Counted 200
--- NOTE | 2018-09-20 23:58 | CT ---
EXAM: CT Head Without Intravenous Contrast CLINICAL HISTORY: pain TECHNIQUE: Axial computed tomography images of the head/brain without intravenous contrast. CTDI is 0.085, 0.085, 49.1 mGy and DLP is 1095.4 mGy-cm. This CT exam was performed using one or more of the following dose reduction techniques: automated exposure control, adjustment of the mA and/or kV according to patient size, and/or use of iterative reconstruction technique. COMPARISON: No relevant prior studies available. FINDINGS: Brain: No acute intracranial hemorrhage, large hyperdensity, or significant mass effect. Nonspecific areas of hypoattenuation in the periventricular white matter likely represent the sequela of chronic small vessel ischemic disease. Linear subcentimeter calcification of the left frontal lobe is indeterminate Ventricles: Ventricular and sulcal prominence commensurate with the patient's age. Bones/joints: Unremarkable. No acute fracture. Soft tissues: Unremarkable. Sinuses: Unremarkable. Mastoid air cells: Unremarkable. IMPRESSION: No acute intracranial abnormality.
[2018-09-20 23:59] LABS: Potassium 5.2 mmol/L (3.5-5.1)
--- NOTE | 2018-09-21 00:03 | XR ---
EXAM: XR Chest, 2 Views CLINICAL HISTORY: Weakness TECHNIQUE: Frontal and lateral views of the chest. COMPARISON: 06/08/2017 FINDINGS: Lungs: Nonspecific right basilar opacity may be infectious or inflammatory. Pleural space: No significant pleural effusion or pneumothorax. Heart: Stable cardiomediastinal silhouette. Mediastinum: Stable postoperative mediastinum. Bones/joints: No acute osseous abnormality. Tubes, lines and devices: Stable left chest wall AICD. IMPRESSION: Nonspecific right basilar opacity may be infectious or inflammatory. No significant pleural effusion or pneumothorax.
[2018-09-21] MEDS ORDERED: MORPHINE SULFATE 2 MG/ML SYRINGE IVP STA (00:23)
[2018-09-21] MEDS ORDERED: AZITHROMYCIN 500 MG in SODIUM CHLORIDE 0.9% 250 ML IVPB STA (00:23)
[2018-09-21] MEDS ORDERED: MORPHINE SULFATE 2 MG/ML SYRINGE IVP PRN (00:23)
[2018-09-21] MEDS ORDERED: PNEUMONIA PROTOCOL UTILIZED 1 EACH MISC PO PRN (00:23)
[2018-09-21] MEDS ORDERED: IPRATROPIUM-ALBUTEROL 3 ML NEB INHALATION STA (01:06)
[2018-09-21] MEDS: SODIUM CHLORIDE 0.9% 1,000 ML IV STA (02:29)
[2018-09-21] MEDS: SODIUM CHLORIDE 0.9% 1,000 ML IV SCH ×3 (02:30→21:49)
[2018-09-21 06:50] LABS: Glucose,Whole Blood 155 mg/dL (75-99)
[2018-09-21 06:56] LABS: Appearance,Urine Cloudy (Clear); Bacteria,Urine Many /hpf; Bilirubin,Urine Negative (Negative); Blood,Urine Small (Negative); Color,Urine Yellow; Glucose,Urine (UA) Negative (Negative); Ketones,Urine Negative (Negative); Leukocyte Esterase,Urine Large (Negative); Nitrite,Urine Negative (Negative); PH, Urine 5.5 (5.0-8.0); Protein,Urine 1+ (Negative); RBC,Urine 5 /hpf (0-5); Specific Gravity,Urine 1.022 (1.001-1.035); Squamous Epithelial Cell,Urine 2 /hpf (0-4)
[2018-09-21] MEDS: IPRATROPIUM-ALBUTEROL 3 ML NEB INHALATION SCH ×4 (07:20→19:54)
[2018-09-21] MEDS: ENOXAPARIN 40 MG/0.4 ML SYRINGE SQ SCH (09:08)
[2018-09-21 11:49] LABS: Glucose,Whole Blood 161 mg/dL (75-99)
[2018-09-21 16:52] LABS: Glucose,Whole Blood 91 mg/dL (75-99)
[2018-09-21] MEDS: INSULIN ASPART (NovoLOG) 100 UNIT/ML VIAL SQ SCH ×2 (17:17→20:38)
[2018-09-21 19:28] LABS: Glucose,Whole Blood 163 mg/dL (75-99)
[2018-09-21] MEDS ORDERED: SENNOSIDES 8.6 MG TAB PO PRN (19:48)
[2018-09-21] MEDS ORDERED: DOCUSATE 100 MG CAP PO PRN (19:48)
[2018-09-21 20:03] LABS: Glucose,Whole Blood 144 mg/dL (75-99)
[2018-09-21] MEDS: methylPREDNISolone SOD SUCCI 40 MG/ML 1 ML VIAL IV SCH (21:42)
[2018-09-21] MEDS ORDERED: methylPREDNISolone SOD SUCCI 40 MG/ML 1 ML VIAL IV STA (21:46)
[2018-09-21] MEDS: ATORVASTATIN 10 MG TAB PO SCH (21:46)
[2018-09-21] MEDS: PANTOPRAZOLE 40 MG TABLET PO SCH (21:46)
[2018-09-21] MEDS ORDERED: diphenhydrAMINE 50 MG/ML 1 ML VIAL IVP PRN (21:47)
[2018-09-21] MEDS: ASPIRIN 81 MG PO SCH (21:47)
[2018-09-21] MEDS: GABAPENTIN 100 MG CAP PO SCH (21:47)
[2018-09-21] MEDS: METOPROLOL TARTRATE 25 MG TAB PO SCH (21:47)
[2018-09-21] MEDS ORDERED: diphenhydrAMINE 50 MG/ML 1 ML VIAL IVP STA (21:47)
[2018-09-21] MEDS: HYDROcodone/APAP 5-325MG 1 EACH TAB PO PRN (21:56)
[2018-09-21] MEDS: DOXYCYCLINE 100 MG in SODIUM CHLORIDE 0.9% 100 ML IVPB SCH (22:17)
[2018-09-21] MEDS: TORSEMIDE 20 MG TAB PO SCH (23:17)
--- NOTE | 2018-09-22 00:09 | HP ---
HISTORY AND PHYSICAL DATE OF SERVICE: 09/21/2018 CHIEF COMPLAINT: Fever and tremors. HISTORY OF PRESENT ILLNESS: This 83-year-old woman with a past medical history of multiple medical problems including history of atrial fibrillation, CHF, diabetes, GERD, hypertension, hyperlipidemia, history of hypothyroidism, sleep apnea, ASHD, cholecystectomy, being followed by . in the outpatient setting was complaining of fever, cough and sputum. The patient was taken to [facility] and was admitted for further evaluation and treatment. The possibility of right lower lobe pneumonia was suspected. The patient was found to have tremors and was also complaining of some weakness. The influenza test was negative. Patient also had features of UTI. The patient was also complaining of nonspecific abdominal discomfort. No history of fevers or rigors. PAST MEDICAL HISTORY: History of atrial ablation, CHF, diabetes type 2, GERD, hypertension, hypertension, DJD, history pneumonia, sleep apnea history of Hudson's esophagus, AICD, History of cholecystectomy. MEDICATIONS: Home medications are: 1. Prednisone 40 mg p.o. daily. 2. Coumadin 3 mg at bedtime. 3. Demadex at 10 mg. 4. Senokot 8.7 daily p.r.n. 6. Mevacor 20 mg p.o. daily p.r.n. 7. Synthroid 25 mcg p.o. daily. 8. [place] 5 mg t.i.d. p.r.n. 9. Neurontin 100 mg p.o. daily. 10.Iron sulfate 320 mg p.o. every 72 hours. 11.Nexium 20 mg p.o. b.i.d. 12.Colace 100 mg p.o. daily. 13.Zithromax daily. 14.Aspirin 81 mg p.o. daily. ALLERGIES: AMOXICILLIN, CIPRO, POTASIUM, SULFA. FAMILY HISTORY: History of myocardial infarction in the family. SOCIAL HISTORY: No history of smoking, no history of alcohol. REVIEW OF SYSTEMS: ENT: No diminished hearing or vision. CARDIOVASCULAR: No angina or palpitations. GI: As mentioned. : As mentioned. NERVOUS SYSTEM: No numbness or weakness. ALLERGIES: No asthma or hayfever. MUSCULOSKELETAL: As mentioned earlier. HEMATOLOGY: No history of anemia. ENDOCRINE: No history of diabetes. NERVOUS: No numbness or weakness. MUSCULOSKELETAL: As mentioned. HEMATOLOGY: No history of anemia. ENDOCRINE: Hypothyroidism. CONSTITUTIONAL: As mentioned earlier. PHYSICAL EXAM: Pulse 74, blood pressure 130/70, respirations 18, temperature 98 degrees, pulse ox 94% on room air. HEENT: Conjunctivae normal. NECK: No JVD. CARDIOVASCULAR: S1 and S2 muffled. RESPIRATORY: Breath sounds diminished in the bases. Scattered rhonchi and crackles. ABDOMEN: Soft, nontender. No mass palpable. Legs: No edema. No swelling. NERVOUS SYSTEM: Higher functions as mentioned. Moves all extremities. LYMPHATICS: No masses. SKIN: No rashes. JOINTS: No active deformities. No arthropathy. LAB STUDIES: WBC 12.5, hemoglobin 12.3, INR 1.8. Sodium 137. NT proBNP is not available. UA noted. ASSESSMENT: 1. Possible acute right lower lobe pneumonia with acute reactive bronchospasm. 2. Acute urinary tract infection. 3. History of atrial fibrillation. 4. History of congestive heart failure. 5. Diabetes mellitus type 2. 6. GERD. 7. Hypertension. 8. Hyperlipidemia. 9. History of DJD. 10.History of pneumonia. 11.History of sleep apnea. 12.Hypothyroidism. 13.History of Hudson's esophagus. 14.History of AICD. 15.History of cholecystectomy. 16.History of borderline diabetes mellitus. 17.History of mitral valve disease. 18.History of pacemaker implantation. 19.History of incarcerated hernia. RECOMMENDATIONS AND DISCUSSION: In this 83-year-old woman who presented with multiple complex medical issues, we will monitor the patient closely, continue the current management. Will initiate broad- spectrum IV antibiotics, bronchodilators. I would also recommend Cardiology consultation, NT proBNP. The patient is started on IV steroids. Otherwise, we will continue to monitor. Prognosis guarded because of multiple complications. Further recommendations to follow. MMODL / IJN: [id number] / JOSE
[2018-09-22] MEDS ORDERED: AZITHROMYCIN 500 MG TAB PO SCH (00:24)
[2018-09-22] MEDS: AZTREONAM 2 GM in SODIUM CHLORIDE 0.9% 100 ML IVPB SCH ×3 (00:58→15:00)
[2018-09-22] MEDS: LEVOTHYROXINE 25 MCG TAB PO SCH (06:24)
[2018-09-22 06:52] LABS: Basophils # (A) 0.1 k/uL (0-0.2); Basophils % (A) 1 %; Eosinophils # (A) 0.1 k/uL (0-0.7); Eosinophils % (A) 1 %; HCT 37.8 % (34.0-46.0); HGB 11.9 gm/dL (11.4-16.0); Hypochromasia Slight; Lymphocytes # (A) 0.5 k/uL (1.0-4.8); Lymphocytes % (A) 6 %; MCH 29.2 pg (25.0-35.0); MCHC 31.4 g/dL (31.0-37.0); Mean Platelet Volume 7.7; Monocytes # (A) 0.2 k/uL (0-1.0); Monocytes % (A) 2 %; Neutrophils # (A) 7.4 k/uL (1.3-7.7); Neutrophils % (A) 88 %; Platelet Count 208 k/uL (150-450); RBC 4.07 m/uL (3.80-5.40); RDW 14.4 % (11.5-15.5); WBC 8.4 k/uL (3.8-10.6)
[2018-09-22 06:59] LABS: Calcium 8.6 mg/dL (8.4-10.2); Potassium 4.5 mmol/L (3.5-5.1)
[2018-09-22 07:03] LABS: Glucose,Whole Blood 198 mg/dL (75-99)
[2018-09-22] MEDS: INSULIN ASPART (NovoLOG) 100 UNIT/ML VIAL SQ SCH ×4 (07:23→20:43)
[2018-09-22] MEDS: PANTOPRAZOLE 40 MG TABLET PO SCH ×2 (07:24→17:11)
[2018-09-22] MEDS ORDERED: TORSEMIDE 20 MG TAB PO SCH (09:00)
--- NOTE | 2018-09-22 09:15 | XR ---
EXAMINATION TYPE: XR chest 2V DATE OF EXAM: 09/22/2018 COMPARISON: 09/20/2018 TECHNIQUE: PA and lateral views submitted. HISTORY: Cough and fever FINDINGS: Cardiac device with postsurgical changes noted. Hyperinflation suggests COPD and there is a coarsened interstitium suggestive of chronic interstitial lung disease. Atherosclerotic change aorta. Surgical clips in the upper abdomen. Hypertrophic and degenerative change of the spine. Suggestion of calcifi ed lymph nodes in the right paratracheal region. IMPRESSION: 1. 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 Superimposed interstitia l pneumonitis in the differential diagnosis. 2. There is a vague nodule in the right upper lobe measuring [address] scan the chest is leslee mmended.
[2018-09-22] MEDS: IPRATROPIUM-ALBUTEROL 3 ML NEB INHALATION SCH ×4 (09:26→20:41)
[2018-09-22] MEDS ORDERED: FUROSEMIDE 10 MG/ML 4 ML VIAL IV SCH (11:15)
[2018-09-22 11:36] LABS: Glucose,Whole Blood 272 mg/dL (75-99)
--- NOTE | 2018-09-22 11:38 | P.CRDCN ---
History of Present Illness History of present illness: This is a pleasant 83-year-old female past medical history significant for mitral valve repair, chronic atrial fibrillation on long-term anticoagulation, diabetes mellitus, dyslipidemia, hypertension, obstructive sleep apnea, Herr's esophagus, permanent pacemaker implantation. 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 We have been asked to see her in consultation for heart failure. She states she has been feeling increasingly weak, fatigued and coughing for the previous 1 week. She also feels increasingly short of breath with exertion. Over the previous 2 days the symptoms have intensified and she noticed she was having fevers. She has been diagnosed with pneumonia and started on antibiotics. She is seen and examined sitting up in bed in no acute distress. She states overall she is still feeling tired and short of breath. She denies chest pain, dizziness, palpitations, nausea, vomiting or diaphoresis. She also denies PND or orthopnea. EKG reveals atrial sensed ventricular paced rhythm with underlying atrial fibrillation. Heart rate is 101. Chest x-ray reveals a nonspecific right basilar opacity. No significant pleural effusion. Repeat today with finding suggestive of chronic pulmonary fibrosis superimprosed on pneumonitis with RUL nodule. CT brain is negative for an intracranial abnormality. Laboratory data reviewed, WBC 8.4, down from 12.5 on admission, hemoglobin 11.9, platelets 88, INR 1.8, sodium 141, potassium 4.5, creatinine 0.75, cardiac enzymes negative 1, NT proBNP 2560. Current cardiac medications include aspirin 81 mg daily, lovastatin 20 mg daily, metoprolol 25 mg twice a day, torsemide 10 mg daily and Coumadin 3 mg daily. Most recent echocardiogram obtained May 2017 reveals preserved left ventricular systolic function with ejection fraction 50-55%, mild aortic valve sclerosis, outer aortic regurgitation, normal functioning bioprosthetic mitral valve with a mean gradient across the valve of 7 mmHg, mild tricuspid regurgitation and moderate pulmonary hypertension with RVSP of 64.26 mmHg. At the time of my exam: CONSTITUTIONAL: Denies fever. Denies chills. EYES: Denies blurred vision. Denies vision changes. Denies eye pain. EARS, NOSE, MOUTH & THROAT: Denies headache. Denies sore throat. Denies ear pain. CARDIOVASCULAR: Denies chest pain. Denies shortness of breath. Denies orthopnea. Denies PND. Denies palpitations. RESPIRATORY: Denies cough. GASTROINTESTINAL: Denies abdominal pain. Denies diarrhea. Denies constipation. Denies nausea. Denies vomiting. MUSCULOSKELETAL: Denies myalgias. INTEGUMENTARY: Denies pruitis. Denies rash. NEUROLOGIC: Denies numbness. Denies tingling. Denies weakness. PSYCHIATRIC: Denies anxiety. Denies depression. ENDOCRINE: Denies fatigue. Denies weight change. Denies polydipsia. Denies polyurina. GENITOURINARY: Denies burning, hematuria or urgency with micturation. HEMATOLOGIC: Denies history of anemia. Denies bleeding. Blood pressure 131/78 heart rate 70 afebrile maintaining oxygen saturation on room air GENERAL: This is a 83-year-old female in no apparent distress at the time of my examination. HEENT: Head is atraumatic, normocephalic. Pupils are equal, round. Sclerae anicteric. Conjunctivae are clear. Mucous membranes of the mouth are moist. Neck is supple. There is no jugular venous distention. No carotid bruit is heard. LUNGS: Course throughout with bibasilar rales and faint expiratory wheezes. No chest wall tenderness is noted on palpation or with deep breathing. HEART: Irregular rate and rhythm with systolic ejection murmur at the left sternal border, no rubs or gallops. S1 and S2 heard. ABDOMEN: Soft, non-tender. Bowel sounds are heard. No organomegaly noted. EXTREMITIES: No evidence of peripheral edema and no calf tenderness noted. VASCULAR: Radial and dorsalis pedis pulses palpated, no evidence of clubbing. NEUROLOGIC: Patient is awake, alert and oriented x3. ASSESSMENT Acute on chronic diastolic heart failure Pneumonia Pulmonary hypertension History of mitral valve repair Chronic persistent atrial fibrillation on long-term anticoagulation Hypertension Dyslipidemia Diabetes mellitus Obstructive sleep apnea History of BiV ICD Pulmonary fibrosis PLAN Obtain 2D echocardiogram and doppler study to assess cardiac structure and function. Initiate on lasix 40 mg IV BID. Follow kidney function and electrolytes in the morning along with daily weights. We will continue to follow and make recommendations accordingly. Thank you kindly for this consultation. Nurse Practitioner note has been reviewed, I agree with a documented findings and plan of care. Patient was seen and examined. Past Medical History Past Medical History: Atrial Fibrillation, Heart Failure, Diabetes Mellitus, GERD/Reflux, Hyperlipidemia, Hypertension, Osteoarthritis (OA), Pneumonia, Sleep Apnea/CPAP/BIPAP, Thyroid Disorder Additional Past Medical History / Comment(s): herr's esophagus. Patient reports that she is "borderline diabetic" but does not consider herself diabetic and does not take medication for this. Patient reports that she is up to date on her flu and pneumonia vaccines, but is unable to verify the exact date. 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/16, incarcerated hernia in bowel Past Anesthesia/Blood Transfusion Reactions: No Reported Reaction Type of Cardiac Device: Permanent Pacemaker Device Placement Date:: 2011 Past Psychological History: No Psychological Hx Reported Smoking Status: Never smoker Past Alcohol Use History: None Reported Past Drug Use History: None Reported - Past Family History Father Family Medical History: Myocardial Infarction ([place]) Mother Family Medical History: Osteoarthritis (OA) Medications and Allergies Home Medications Medication Instructions Recorded Confirmed Type Gabapentin [Neurontin] 100 mg PO TID 10/08/14 09/20/18 History Levothyroxine Sodium [Synthroid] 25 mcg PO DAILY 06/23/16 09/20/18 History Ferrous Sulfate [Iron (65 MG 325 mg PO Q72H 06/03/17 09/20/18 History Elemental)] Lovastatin [Mevacor] 20 mg PO DAILY 06/03/17 09/20/18 History Aspirin 81 mg PO DAILY 06/06/17 09/20/18 History Esomeprazole Magnesium [NexIUM] 20 mg PO BID 06/06/17 09/20/18 History HYDROcodone/APAP 5-325MG [[place] 1 tab PO TID PRN #15 tab 06/09/17 09/20/18 Rx 5-325] Sennosides [Senokot] 8.6 mg PO DAILY PRN #30 tab 06/09/17 09/20/18 Rx Azithromycin [Zithromax Z-pack] See Taper PO DAILY 09/20/18 09/20/18 History Docusate [Colace] 100 mg PO DAILY 09/20/18 09/20/18 History Metoprolol Tartrate [Lopressor] 25 mg PO BID 09/20/18 09/20/18 History Torsemide [Demadex] 10 mg PO DAILY 09/20/18 09/20/18 History Warfarin Sodium [Coumadin] 3 mg PO HS 09/20/18 09/20/18 History predniSONE 40 mg PO DAILY 09/20/18 09/20/18 History Allergies Allergy/AdvReac Type Severity Reaction Status Date / Time amoxicillin trihydrate Allergy Swelling Verified 09/20/18 22:51 [From Augmentin] ciprofloxacin [From Cipro] Allergy Swelling Verified 09/20/18 22:51 ciprofloxacin HCl Allergy Swelling Verified 09/20/18 22:51 [From Cipro] potassium clavulanate Allergy Swelling Verified 09/20/18 22:51 [From Augmentin] Sulfa (Sulfonamide Allergy Rash/Hives Verified 09/20/18 22:51 Antibiotics) Physical Exam Vitals: Vital Signs Temp Pulse Pulse Resp BP Pulse Ox 09/22/18 09:38 76 09/22/18 09:26 72 09/22/18 07:00 97.6 F 70 16 131/78 95 09/22/18 01:10 97.7 F 69 16 144/78 98 09/21/18 20:04 82 09/21/18 19:55 76 09/21/18 19:15 99.0 F 74 18 136/77 95 09/21/18 18:52 98.9 F 74 14 115/69 94 L 09/21/18 16:16 72 09/21/18 16:05 70 14 94 L 09/21/18 14:28 98.0 F 66 14 104/63 94 L Intake and Output 09/21/18 09/22/18 09/22/18 22:59 06:59 14:59 Intake Total 400 200 Balance 400 200 Intake: Intake, IV Titration 400 Amount Sodium Chloride 0.9% 1, 400 000 ml @ 100 mls/hr IV . Q10H [facility] Rx#:[id number] Oral 200 Other: Voiding Method Toilet Toilet # Voids 2 1 1 Weight 63 kg Results 09/22/18 06:08 09/22/18 06:08 CBC 09/22/18 Range/Units 06:08 WBC 8.4 (3.8-10.6) k/uL RBC 4.07 (3.80-5.40) m/uL Hgb 11.9 (11.4-16.0) gm/dL Hct 37.8 (34.0-46.0) % Plt Count 208 (150-450) k/uL Comprehensive Metabolic Panel 09/22/18 Range/Units 06:08 Sodium 141 (137-145) mmol/L Potassium 4.5 (3.5-5.1) mmol/L Chloride 109 H (98-107) mmol/L Carbon Dioxide 23 (22-30) mmol/L BUN 24 H (7-17) mg/dL Creatinine 0.75 (0.52-1.04) mg/dL Glucose 219 H (74-99) mg/dL Calcium 8.6 (8.4-10.2) mg/dL Current Medications Generic Name Dose Route Start Last Admin Trade Name Freq PRN Reason Stop Dose Admin Hydrocodone Bitart/Acetaminophen 1 each 09/21/18 19:48 09/21/18 21:56 [place] 5-325 PO 1 each TID PRN Administration Pain Albuterol/Ipratropium 3 ml 09/21/18 08:00 09/22/18 09:26 Duoneb 0.5 Mg-3 Mg/3 Ml Soln INHALATION 3 ml RT-QID BRAYAN Administration Aspirin 81 mg 09/21/18 20:00 09/21/18 21:47 Aspirin PO 81 mg DAILY BRAYAN Administration Atorvastatin Calcium 10 mg 09/21/18 20:00 09/21/18 21:46 Lipitor PO 10 mg DAILY BRAYAN Administration Diphenhydramine HCl 25 mg 09/21/18 21:47 Benadryl IVP Q6HR PRN Allergy Symptoms Docusate Sodium 100 mg 09/21/18 19:48 Colace PO DAILY PRN Constipation Enoxaparin Sodium 40 mg 09/21/18 09:00 09/21/18 09:08 Lovenox SQ 40 mg DAILY BRAYAN Administration Furosemide 40 mg 09/22/18 11:15 Lasix IV Q12HR BRAYAN Gabapentin 100 mg 09/21/18 22:00 09/21/18 21:47 Neurontin PO 100 mg TID BRAYAN Administration Aztreonam 2 gm/ Sodium 100 mls @ 100 mls/hr 09/22/18 00:00 09/22/18 07:23 Chloride IVPB 100 mls/hr Q8HR BRAYAN Administration Protocol Doxycycline Hyclate 100 mg/ 100 mls @ 100 mls/hr 09/21/18 22:00 09/21/18 22:17 Sodium Chloride IVPB 100 mls/hr Q12HR BRAYAN Administration Insulin Aspart 0 unit 09/21/18 17:30 09/22/18 07:23 Novolog SQ 2 unit ACHS BRAYAN Administration Protocol Levothyroxine Sodium 25 mcg 09/22/18 06:30 09/22/18 06:24 Synthroid PO 25 mcg 0630 BRAYAN Administration Methylprednisolone Sodium Succinate 40 mg 09/21/18 21:00 09/21/18 21:42 Solu-Medrol IV 40 mg Q12HR BRAYAN Administration Metoprolol Tartrate 25 mg 09/21/18 21:00 09/21/18 21:47 Lopressor PO 25 mg BID BRAYAN Administration Miscellaneous Information 1 each 09/21/18 00:23 Pneumonia Protocol Utilized PO ONCE PRN Per Protocol Morphine Sulfate 2 mg 09/21/18 00:23 Morphine Sulfate (Inj) IVP Q4H PRN Pain/Discomfort Pantoprazole Sodium 40 mg 09/21/18 21:00 09/22/18 07:24 Protonix PO 40 mg AC-BID BRAYAN Administration Senna 8.6 mg 09/21/18 19:48 Senokot PO DAILY PRN Constipation Intake and Output 09/21/18 09/22/18 09/22/18 22:59 06:59 14:59 Intake Total 400 200 Balance 400 200 Intake: Intake, IV Titration 400 Amount Sodium Chloride 0.9% 1, 400 000 ml @ 100 mls/hr IV . Q10H [facility] Rx#:[id number] Oral 200 Other: Voiding Method Toilet Toilet # Voids 2 1 1 Weight 63 kg 09/22/18 06:08 09/22/18 06:08
[2018-09-22] MEDS: ASPIRIN 81 MG PO SCH (11:55)
[2018-09-22] MEDS: ENOXAPARIN 40 MG/0.4 ML SYRINGE SQ SCH (11:55)
[2018-09-22] MEDS: DOXYCYCLINE 100 MG in SODIUM CHLORIDE 0.9% 100 ML IVPB SCH ×2 (11:55→20:49)
[2018-09-22] MEDS: METOPROLOL TARTRATE 25 MG TAB PO SCH ×2 (11:55→20:43)
[2018-09-22] MEDS: ATORVASTATIN 10 MG TAB PO SCH (11:55)
[2018-09-22] MEDS: GABAPENTIN 100 MG CAP PO SCH ×3 (11:55→21:53)
[2018-09-22] MEDS: methylPREDNISolone SOD SUCCI 40 MG/ML 1 ML VIAL IV SCH ×2 (11:56→20:49)
[2018-09-22] MEDS: TORSEMIDE 20 MG TAB PO SCH (13:17)
--- NOTE | 2018-09-22 13:50 | ECHOF ---
Referral Reason:sob MEASUREMENTS -------- HEIGHT: 167.6 cm WEIGHT: 62.6 kg BP: 131/78 RVIDd: 3.0 cm (< 3.3) IVSd: 1.0 cm (0.6 - 1.1) LVIDd: 4.5 cm (3.9 - 5.3) LVPWd: 1.1 cm (0.6 - 1.1) IVSs: 1.1 cm LVIDs: 3.3 cm LVPWs: 1.2 cm LAESV Index (A-L): 31.16 ml/m Ao Diam: 3.3 cm (2.0 - 3.7) AV Cusp: 1.4 cm (1.5 - 2.6) LA Diam: 4.0 cm (2.7 - 3.8) AV maxP.69 mmHg AV meanP.20 mmHg RAP: 10.00 mmHg RVSP: 69.62 mmHg FINDINGS -------- Paced rhythm. This was a technically adequate study. The left ventricular size is normal. Left ventricular wall thickness is normal. Overall left vent ricular systolic function is normal with, an EF between 55 - 60 %. Inferior basal Hypokinesis The right ventricle is normal in size and function. LA is midly dilated 29-33ml/m2. Electronic pacemaker lead seen in the right ventricular cavity. RA appears enlarged. Aortic valve is trileaflet and is moderately thickened. Trace to mild aortic regurgitation. There is mild aortic stenosis present. Peak/mean gradient across the Aortic Valve is 21.69mmHg / 11.20mm Hg. [id number] mitral regurgitation is present. The peak and mean MV gradients are 32.12mmHg 9.8 2mmHg as measured by doppler. 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 Moderate to severe tricuspid regurgitation present. There is moderate to severe pulmonary hypertens ion. The right ventricular systolic pressure, as measured by Doppler, is 69.62mmHg. Trace/mild (physiologic) pulmonic regurgitation. The aortic root size is normal. The IVC is dilated with normal collapse. There is no pericardial effusion. Moderate Pleural Effusion. CONCLUSIONS -------- 1. Paced rhythm. 2. This was a technically adequate study. 3. The left ventricular size is normal. 4. Left ventricular wall thickness is normal. 5. Overall left ventricular systolic function is normal with, an EF between 55 - 60 %. 6. Inferior basal Hypokinesis 7. LA is midly dilated 29-33ml/m2. 8. Electronic pacemaker lead seen in the right ventricular cavity. 9. RA appears enlarged. 10. Aortic valve is trileaflet and is moderately thickened. 11. Trace to mild aortic regurgitation. 12. There is mild aortic stenosis present. 13. Peak/mean gradient across the Aortic Valve is 21.69mmHg / 11.20mmHg. 14. [id number] mitral regurgitation is present. 15. The peak and mean MV gradients are 32.12mmHg 9.82mmHg as measured by doppler. 16. 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 17. Moderate to severe tricuspid regurgitation present. 18. There is moderate to severe pulmonary hypertension. 19. The right ventricular systolic pressure, as measured by Doppler, is 69.62mmHg. 20. Trace/mild (physiologic) pulmonic regurgitation. 21. The aortic root size is normal. 22. The IVC is dilated with normal collapse. 23. There is no pericardial effusion. 24. Moderate Pleural Effusion. [place]: Mike Orantes RDCS
[2018-09-22] MEDS: FUROSEMIDE 10 MG/ML 4 ML VIAL IV SCH (15:49)
--- NOTE | 2018-09-22 16:23 | PN ---
PROGRESS NOTE DATE OF SERVICE: 09/22/2018 This 83-year-old woman who was admitted with shortness of breath and features of pneumonia also has CHF, acute exacerbation, with acute on chronic diastolic dysfunction. Patient had multiple lab abnormalities also. Patient also has previous history of mitral valve replacement. Past medical history reviewed. REVIEW OF SYSTEMS: CARDIOVASCULAR SYSTEM: No angina, palpitations. RESPIRATORY SYSTEM: As mentioned earlier. GI: As mentioned earlier. : No dysuria or retention. NERVOUS SYSTEM: No numbness, weakness. CURRENT MEDICATIONS: Reviewed. They include: 1. [place] 5 mg t.i.d. p.r.n. 2. DuoNeb q.i.d. and p.r.n. 3. Aspirin 81 mg p.o. daily. 4. Lipitor 10 mg daily. 5. Aztreonam 2 grams IV q.8. 6. Benadryl. 7. Doxycycline 100 mg b.i.d. 8. Lovenox. 9. Neurontin. 10.Synthroid. 11.Solu-Medrol 40 IV b.i.d. 12.Protonix. 13.Senokot. PHYSICAL EXAMINATION: Patient is alert, oriented x3. The pulse is 70, blood pressure 117/68, respiration 16, temperature 97.4, pulse ox 96% on 2 L. HEENT: Conjunctivae normal. Oral mucosa moist. NECK: No jugular venous distention. No carotid bruit. No lymph node enlargement. CARDIOVASCULAR SYSTEM: S1, S2 muffled. RESPIRATORY SYSTEM: Breath sounds diminished at the bases. A few scattered rhonchi and crackles. ABDOMEN: Soft, non-tender. No mass palpable. LEGS: No edema. No swelling. NERVOUS SYSTEM: Higher functions as mentioned earlier. Moves all 4 limbs. No focal motor or sensory deficit. LYMPHATICS: No lymph node palpable in neck, axillae or groin. SKIN: No ulcer, rash, bleeding. JOINTS: No active deforming arthropathy. LABS: CBC within normal limits. Sodium 141, potassium 4.5, glucose 219. ASSESSMENT: 1. Possible acute right lower lobe pneumonia with possible acute reactive bronchospasm. 2. Congestive heart failure, acute exacerbation, with acute on chronic diastolic dysfunction, ejection fraction 50% to 55%. 3. Multiple valvular abnormalities, including mild to moderate mitral regurgitation, mild to moderate stenosis of the bioprosthetic mitral valve, as well as moderate to severe tricuspid regurgitation and moderate to severe pulmonary hypertension. 4. Acute urinary tract infection. 5. History of atrial fibrillation. 6. History of congestive heart failure. 7. Diabetes mellitus, type 2. 8. Gastroesophageal reflux disease. 9. Hypertension. 10.Hyperlipidemia. 11.History of degenerative joint disease. 12.History of pneumonia. 13.Sleep apnea. 14.History of hypothyroidism. 15.History of Hudson's esophagus. 16.History of automated implantable cardioverter defibrillator. 17.History of cholecystectomy. 18.History of borderline diabetes mellitus, type 2. 19.History of mitral valve disease. 20.History of pacemaker implantation. 21.History of incarcerated hernia. RECOMMENDATIONS AND DISCUSSION: In this 83-year-old woman who presented with multiple complex medical issues, we will monitor the patient closely, continue the current management, continue with symptomatic treatment. Otherwise at this time I recommend continuing with broad-spectrum IV antibiotics. I would also recommend a small dose of IV Lasix. Continue to follow with Cardiology and Infectious Disease. Guarded prognosis because of multiple complex medical issues. Further recommendations to follow. See orders for further details. Prognosis guarded. MMODL / IJN: [id number] /
[2018-09-22 16:47] LABS: Glucose,Whole Blood 268 mg/dL (75-99)
[2018-09-22 20:32] LABS: Glucose,Whole Blood 211 mg/dL (75-99)
[2018-09-22] MEDS: HYDROcodone/APAP 5-325MG 1 EACH TAB PO PRN (21:53)
--- NOTE | 2018-09-22 22:35 | CONS ---
CONSULTATION DATE OF SERVICE: 09/22/2018. REASON FOR CONSULTATION: Pneumonia with multiple antibiotic allergy. HISTORY OF PRESENT ILLNESS: The patient is an 83-year-old female who presented to the ER at [facility] yesterday with the chief complaints of increasing shortness of breath and cough. The patient said she had similar symptoms about 2 weeks ago when the patient was given a cough medication by the primary physician. The patient did improve. However, this time she is having shortness of breath and dry irritating coughs that had been going on for about 4 days without any improvement. The patient's cough was mild to moderate in intensity. Did break up occasional brown sputum with no hemoptysis. Denies any pleuritic chest pain. Denies any nausea, vomiting or choking on the food. No abdominal pain or any diarrhea. With these symptoms, the patient was evaluated by the ER physician. On arrival to the ER, the patient did have a chest x-ray which did show right basilar pneumonia. Repeat x-ray this morning confirmed the same finding. The patient did have a low-grade fever of 102 on presentation. Heart rate was elevated to 108 and the patient did have elevated white count 12.5, repeat is 8.4. The patient UA was also positive with large leukocyte WBC. Influenza serology was negative. The patient was started on Rocephin and Zithromax. However, the patient apparently did develop a rash that was not very clearly if she did develop the rash to Azithromycin or Rocephin. The patient antibiotic was discontinued. She was started on Azactam and . Infectious disease was consulted for further recommendation regarding antibiotic therapy. REVIEW OF SYSTEMS: Positive points have been mentioned in HPI. Rest of systems are negative. PAST MEDICAL HISTORY: Atrial fibrillation, heart failure, diabetes mellitus, gastroesophageal reflux disease, hypertension, hyperlipidemia, osteoarthritis, pneumonia, Diabetes mellitus, hypothyroidism. PAST SURGICAL HISTORY: AICD placement, cholecystectomy, pacemaker placement, mitral valve repair, incarcerated hernia repair. SOCIAL HISTORY: No history of smoking, drinking, or drug use. FAMILY HISTORY: Mother with history of [place]. Father history of osteoarthritis. ALLERGIES: AMOXICILLIN, CIPROFLOXACIN and SULFA. MEDICATIONS: Medications include the patient is currently on: [place], DuoNeb, aspirin, Lipitor, Azactam 2 gm. She is on Benadryl, doxycycline, Lovenox, Lasix, Neurontin, NovoLog, Synthroid, Solu-Medrol, Lopressor, Protonix, and Senokot. PHYSICAL EXAMINATION: Blood pressure is 113/60 with a pulse of 70, temperature of 98.1. She is 92% on 2 L nasal cannula. General description is an elderly female up in the bed in no distress. No tachypnea or accessory muscles of respiration use. HEENT: Shows no pallor or scleral icterus. Oral mucosa membranes are dry. No pharyngeal erythema or thrush. Neck: Trachea central. No thyromegaly. Lungs unlabored breathing. Coarse breath sounds bilaterally. Heart is S1, S2. Regular rate and rhythm. Abdomen soft. No tenderness. No guarding. No rigidity. Extremities: No edema of the feet. Skin examination: No rash or mass palpable. Neurological: The patient is awake, alert, oriented x3. Mood and affect normal. LABS: Hemoglobin is 11.1, white count of 12.5, BUN of 24, creatinine 0.75. UA has been positive. Influenza serology was negative. Chest report as mentioned above. DIAGNOSTIC IMPRESSION/PLAN: 1. Patient admitted to the hospital with sepsis. The patient did have a fever, tachycardia, elevated white count, for SIRS, source likely right lower lobe pneumonia likely community acquired. 2. Patient does have MULTIPLE ANTIBIOTIC ALLERGIES that will limit the number of antibiotics that can be safe to use. 3. Patient positive UA minimal with some concern for possible urinary tract infection with gram-negative pathogen. PLAN: 1. We will try to obtain sputum for Gram stain culture and sensitivity. 2. Azactam 2 g q.8h. 3. to cover for as well as UTI. 4. We will follow up on her clinical condition and culture to further adjust medication if needed. Thank you for this consultation. We will follow this patient with you. MMODL / IJN: [id number] /
[2018-09-23] MEDS: AZTREONAM 2 GM in SODIUM CHLORIDE 0.9% 100 ML IVPB SCH ×3 (00:10→16:38)
[2018-09-23] MEDS: LEVOTHYROXINE 25 MCG TAB PO SCH (05:48)
[2018-09-23] MEDS: IPRATROPIUM-ALBUTEROL 3 ML NEB INHALATION SCH ×4 (07:04→20:45)
[2018-09-23 07:15] LABS: Glucose,Whole Blood 200 mg/dL (75-99)
[2018-09-23] MEDS: GABAPENTIN 100 MG CAP PO SCH ×3 (07:39→22:40)
[2018-09-23] MEDS: ASPIRIN 81 MG PO SCH (07:39)
[2018-09-23] MEDS: METOPROLOL TARTRATE 25 MG TAB PO SCH ×2 (07:39→20:39)
[2018-09-23] MEDS: FUROSEMIDE 10 MG/ML 4 ML VIAL IV SCH ×2 (07:39→16:38)
[2018-09-23] MEDS: ATORVASTATIN 10 MG TAB PO SCH (07:39)
[2018-09-23] MEDS: PANTOPRAZOLE 40 MG TABLET PO SCH ×2 (07:39→16:39)
[2018-09-23] MEDS: methylPREDNISolone SOD SUCCI 40 MG/ML 1 ML VIAL IV SCH ×2 (07:40→20:38)
[2018-09-23] MEDS: ENOXAPARIN 40 MG/0.4 ML SYRINGE SQ SCH (07:40)
[2018-09-23] MEDS: INSULIN ASPART (NovoLOG) 100 UNIT/ML VIAL SQ SCH ×4 (07:42→20:38)
[2018-09-23] MEDS: HYDROcodone/APAP 5-325MG 1 EACH TAB PO PRN ×2 (07:53→22:39)
[2018-09-23 08:50] LABS: Basophils % (A) 0 %; Eosinophils # (A) 0.1 k/uL (0-0.7); Eosinophils % (A) 1 %; HCT 35.5 % (34.0-46.0); HGB 11.5 gm/dL (11.4-16.0); Hypochromasia Slight; Lymphocytes # (A) 0.7 k/uL (1.0-4.8); Lymphocytes % (A) 4 %; MCH 29.5 pg (25.0-35.0); MCHC 32.4 g/dL (31.0-37.0); MCV 91.1 fL (80.0-100.0); Mean Platelet Volume 7.8; Monocytes # (A) 0.4 k/uL (0-1.0); Monocytes % (A) 3 %; Neutrophils # (A) 14.4 k/uL (1.3-7.7); Neutrophils % (A) 91 %; Platelet Count 269 k/uL (150-450); RDW 14.4 % (11.5-15.5); WBC 15.8 k/uL (3.8-10.6)
[2018-09-23 09:07] LABS: Potassium 3.7 mmol/L (3.5-5.1)
[2018-09-23] MEDS: DOXYCYCLINE 100 MG in SODIUM CHLORIDE 0.9% 100 ML IVPB SCH ×2 (09:47→20:37)
--- NOTE | 2018-09-23 10:04 | P.PN ---
<Deedee Rosenbaum A - Last Filed: 09/23/18 10:39> Subjective Progress Note Date: 09/23/18 This is a pleasant 83-year-old female past medical history significant for mitral valve repair, chronic atrial fibrillation on long-term anticoagulation, diabetes mellitus, dyslipidemia, hypertension, obstructive sleep apnea, Hudson's esophagus, permanent pacemaker implantation. She states she follows with a watch train assembler out of town, she is unsure of the name or location. We have been asked to see her in consultation for heart failure. She states she has been feeling increasingly weak, fatigued and coughing for the pr evious 1 week. She also feels increasingly short of breath with exertion. Over the previous 2 days the symptoms have intensified and she noticed she was having fevers. She has been diagnosed with pneumonia and started on antibiotics. She is seen and examined sitting up in bed in no acute distress. She states overall she is still feeling tired and short of breath. She denies chest pain, dizziness, palpitations, nausea, vomiting or diaphoresis. She also denies PND or orthopnea. EKG reveals atrial sensed ventricular paced rhythm with underlying atrial fibrillation. Heart rate is 101. Chest x-ray reveals a nonspecific right basilar opacity. No significant pleural effusion. Repeat today with finding suggestive of chronic pulmonary fibrosis superimprosed on pneumonitis with RUL nodule. CT brain is negative for an intracranial abnormality. Laboratory data reviewed, WBC 8.4, down from 12.5 on admission, hemoglobin 11.9, platelets 88, INR 1.8, sodium 141, potassium 4.5, creatinine 0.75, cardiac enzymes negative 1, NT proBNP 2560. Current cardiac medications include aspirin 81 mg daily, lovastatin 20 mg daily, metoprolol 25 mg twice a day, torsemide 10 mg daily and Coumadin 3 mg daily. Most recent echocardiogram obtained May 2017 reveals preserved left ventricular systolic function with ejection fraction 50-55%, mild aortic valve sclerosis, outer aortic regurgitation, normal functioning bioprosthetic mitral valve with a mean gradient across the valve of 7 mmHg, mild tricuspid regurgitation and moderate pulmonary hypertension with RVSP of 64.26 mmHg. 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 WBC 15.8, hemoglobin 11.5, platelet count 269. BUN 27 creatinine 0.70. Patient states she is short of breath ambulating to the bathroom and back but in general feels much better from yesterday. She has no lower extremity edema. Patient did develop hives yesterday thought to be related to IV antibiotics and was given Benadryl and Solu-Medrol. She does complain of some redness in her face. Patient is currently on IV Lasix at 40 mg twice daily. Blood pressure 145/67 heart rate 70 afebrile maintaining oxygen saturation above 91% on 2 L nasal cannula GENERAL: This is a 83-year-old female in no apparent distress at the t [place] of my examination. HEENT: Head is atraumatic, normocephalic. Pupils are equal, round. Sclerae an icteric. Conjunctivae are clear. Mucous membranes of the mouth are moist. Neck is supple. There is no jugular venous distention. No carotid bruit is heard. LUNGS: Course throughout with bibasilar rales and faint expiratory wheezes. No chest wall tenderness is noted on palpation or with deep breathing. HEART: Irregular rate and rhythm with systolic ejection murmur at the left sternal border, no rubs or gallops. S1 and S2 heard. ABDOMEN: Soft, non-tender. Bowel sounds are heard. No organomegaly noted. EXTREMITIES: No evidence of peripheral edema and no calf tenderness noted. VASCULAR: Radial and dorsalis pedis pulses palpated, no evidence of clubbing. NEUROLOGIC: Patient is awake, alert and oriented x3. ASSESSMENT Acute on chronic diastolic heart failure Pneumonia Pulmonary hypertension History of mitral valve repair Chronic persistent atrial fibrillation on long-term anticoagulation Hypertension Dyslipidemia Diabetes mellitus Obstructive sleep apnea History of BiV ICD Pulmonary fibrosis PLAN Continue IV Lasix 20 mg BID. Follow kidney function and electrolytes in the morning along with daily weights. We will continue to follow and make recommendations accordingly. Thank you kindly for this consultation. Nurse Practitioner note has been reviewed, I agree with a documented findings and plan of care. Patient was seen and examined. Objective - Vital Signs Vital signs: Vital Signs Temp 98.0 F 09/23/18 07:00 Pulse 70 09/23/18 07:04 Resp 17 09/23/18 07:00 BP 145/67 09/23/18 07:00 Pulse Ox 91 L 09/23/18 07:00 Intake & Output 09/22/18 09/23/18 09/23/18 18:59 06:59 18:59 Intake Total 580 200 360 Balance 580 200 360 Intake: Intake, IV Titration 100 Amount Aztreonam 2 gm In Sodium 100 Chloride 0.9% 100 ml @ 100 mls/hr IVPB Q8HR [facility] Rx#:[id number] Oral 580 100 360 Other: Voiding Method Toilet Toilet Toilet # Voids 1 2 - Labs CBC & Chem 7: 09/23/18 07:36 09/23/18 07:36 Labs: Abnormal Lab Results - Last 24 Hours (Table) 09/22/18 09/22/18 09/22/18 Range/Units 11:35 16:45 20:26 WBC (3.8-10.6) k/uL Neutrophils # (1.3-7.7) k/uL Lymphocytes # (1.0-4.8) k/uL Chloride (98-107) mmol/L BUN (7-17) mg/dL Glucose (74-99) mg/dL POC Glucose (mg/dL) 272 H 268 H 211 H (75-99) mg/dL 09/23/18 09/23/18 09/23/18 Range/Units 07:14 07:36 07:36 WBC 15.8 H (3.8-10.6) k/uL Neutrophils # 14.4 H (1.3-7.7) k/uL Lymphocytes # 0.7 L (1.0-4.8) k/uL Chloride 108 H (98-107) mmol/L BUN 27 H (7-17) mg/dL Glucose 205 H (74-99) mg/dL POC Glucose (mg/dL) 200 H (75-99) mg/dL Microbiology - Last 24 Hours (Table) 09/21/18 06:16 Urine Culture - Final Urine,Catheterized Escherichia coli 09/20/18 23:12 Blood Culture - Preliminary Blood No Growth after 48 hours <Guillermo Sunshine - Last Filed: 09/24/18 11:52> Objective - Vital Signs Vital signs: Vital Signs Temp 97.7 F 09/24/18 07:24 Pulse 80 09/24/18 10:54 Resp 16 09/24/18 08:00 BP 161/78 09/24/18 10:10 Pulse Ox 94 L 09/24/18 07:24 Intake & Output 09/23/18 09/24/18 09/24/18 18:59 06:59 18:59 Intake Total 720 240 Balance 720 240 Weight 59.3 kg 59.562 kg Intake: Oral 720 240 Other: Voiding Method Toilet Toilet # Voids 1 - Labs CBC & Chem 7: 09/24/18 08:19 09/24/18 08:19 Labs: Abnormal Lab Results - Last 24 Hours (Table) 09/23/18 09/23/18 09/24/18 Range/Units 16:53 19:54 08:19 WBC 15.9 H (3.8-10.6) k/uL MCHC 30.7 L (31.0-37.0) g/dL Neutrophils # 14.8 H (1.3-7.7) k/uL Lymphocytes # 0.5 L (1.0-4.8) k/uL Chloride (98-107) mmol/L BUN (7-17) mg/dL Glucose (74-99) mg/dL POC Glucose (mg/dL) 174 H 234 H (75-99) mg/dL 09/24/18 09/24/18 Range/Units 08:19 11:29 WBC (3.8-10.6) k/uL MCHC (31.0-37.0) g/dL Neutrophils # (1.3-7.7) k/uL Lymphocytes # (1.0-4.8) k/uL Chloride 108 H (98-107) mmol/L BUN 36 H (7-17) mg/dL Glucose 267 H (74-99) mg/dL POC Glucose (mg/dL) 233 H (75-99) mg/dL Microbiology - Last 24 Hours (Table) 09/20/18 23:12 Blood Culture - Preliminary Blood No Growth after 72 hours 09/21/18 06:16 Urine Culture - Final Urine,Catheterized Escherichia coli
[2018-09-23 11:37] LABS: Glucose,Whole Blood 274 mg/dL (75-99)
[2018-09-23 16:55] LABS: Glucose,Whole Blood 174 mg/dL (75-99)
[2018-09-23 20:06] LABS: Glucose,Whole Blood 234 mg/dL (75-99)
--- NOTE | 2018-09-23 21:45 | PN ---
PROGRESS NOTE DATE OF SERVICE: 09/23/2018 This 83-year-old woman who was admitted with right lower lobe pneumonia also had reactive bronchospams. Suspicion for CHF also. The patient had slight improvement. No chest pain. No palpitations. No fever. EXAM: Alert and oriented x3. Pulse 70. Blood pressure 144/74, respiratory rate 16, temperature 98 degrees, pulse ox 98% on room air. HEENT: Conjunctivae normal. NECK: No jugular venous distention. CARDIOVASCULAR: S1, S2 muffled. RESPIRATORY: Breath sounds diminished in the bases. A few scattered rhonchi and crackles. Abdomen is soft. CENTRAL NERVOUS SYSTEM: No focal deficits. LABS: WBC 15.8, sodium 143, potassium 3.7. ASSESSMENT: 1. Acute right lower lobe pneumonia possibly gram-negative with acute reactive bronchospasm. 2. Congestive heart failure acute exacerbation with acute on chronic diastolic dysfunction, ejection fraction 50-55 percent. 3. 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 4. Acute urinary tract infection present on admission. 5. History of atrial fibrillation. 6. History of congestive heart failure. 7. Diabetes type 2. 8. Gastroesophageal reflux disease. 9. Hypertension. 10.Hyperlipidemia. 11.History of degenerative joint disease. 12.History of pneumonia. 13.Obstructive sleep apnea. 14.History of hypothyroidism. 15.History of Hudson's esophagus. 16.History of AICD. 17.History of cholecystectomy. 18.Borderline diabetes Type 2. 19.History of mitral valve disease. 20.History of pacemaker implantation. 21.History of incarcerated hernia. RECOMMENDATIONS AND DISCUSSION: Recommend to continue current medications, management and symptomatic treatment. Continue the antibiotics. Continue the bronchodilators. Continue the diuretics. Closely follow with Cardiology. Guarded prognosis. Further recommendations to follow. MMODL / IJN: [id number] /
[2018-09-24] MEDS: AZTREONAM 2 GM in SODIUM CHLORIDE 0.9% 100 ML IVPB SCH ×3 (00:30→15:57)
[2018-09-24] MEDS: LEVOTHYROXINE 25 MCG TAB PO SCH (05:41)
[2018-09-24] MEDS: HYDROcodone/APAP 5-325MG 1 EACH TAB PO PRN ×2 (05:43→15:57)
[2018-09-24] MEDS: IPRATROPIUM-ALBUTEROL 3 ML NEB INHALATION SCH ×4 (07:08→20:25)
[2018-09-24] MEDS: FUROSEMIDE 10 MG/ML 4 ML VIAL IV SCH ×2 (08:17→15:57)
[2018-09-24] MEDS: methylPREDNISolone SOD SUCCI 40 MG/ML 1 ML VIAL IV SCH (08:17)
[2018-09-24] MEDS: GABAPENTIN 100 MG CAP PO SCH ×3 (08:17→20:48)
[2018-09-24] MEDS: METOPROLOL TARTRATE 25 MG TAB PO SCH ×2 (08:18→20:48)
[2018-09-24] MEDS: PANTOPRAZOLE 40 MG TABLET PO SCH ×2 (08:18→16:59)
[2018-09-24] MEDS: ASPIRIN 81 MG PO SCH (08:18)
[2018-09-24] MEDS: ATORVASTATIN 10 MG TAB PO SCH (08:18)
[2018-09-24] MEDS: INSULIN ASPART (NovoLOG) 100 UNIT/ML VIAL SQ SCH ×4 (08:18→20:48)
[2018-09-24] MEDS: ENOXAPARIN 40 MG/0.4 ML SYRINGE SQ SCH (08:18)
[2018-09-24 09:26] LABS: Basophils % (A) 0 %; Eosinophils # (A) 0.1 k/uL (0-0.7); Eosinophils % (A) 0 %; HCT 38.5 % (34.0-46.0); HGB 11.8 gm/dL (11.4-16.0); Hypochromasia Slight; Lymphocytes # (A) 0.5 k/uL (1.0-4.8); Lymphocytes % (A) 3 %; MCH 28.3 pg (25.0-35.0); MCHC 30.7 g/dL (31.0-37.0); MCV 92.3 fL (80.0-100.0); Mean Platelet Volume 7.4; Monocytes # (A) 0.5 k/uL (0-1.0); Monocytes % (A) 3 %; Neutrophils # (A) 14.8 k/uL (1.3-7.7); Neutrophils % (A) 93 %; Platelet Count 291 k/uL (150-450); RBC 4.17 m/uL (3.80-5.40); RDW 14.4 % (11.5-15.5); WBC 15.9 k/uL (3.8-10.6)
[2018-09-24 09:37] LABS: Calcium 8.9 mg/dL (8.4-10.2); Potassium 3.7 mmol/L (3.5-5.1)
[2018-09-24] MEDS: DOXYCYCLINE 100 MG in SODIUM CHLORIDE 0.9% 100 ML IVPB SCH ×2 (09:38→22:40)
[2018-09-24 11:41] LABS: Glucose,Whole Blood 233 mg/dL (75-99)
[2018-09-24 17:07] LABS: Glucose,Whole Blood 248 mg/dL (75-99)
[2018-09-24 20:32] LABS: Glucose,Whole Blood 237 mg/dL (75-99)
[2018-09-24] MEDS: predniSONE 20 MG TAB PO SCH (20:49)
--- NOTE | 2018-09-24 22:25 | PN ---
PROGRESS NOTE DATE OF SERVICE: 09/24/2018. HISTORY: This 83-year-old woman who was admitted with acute right lower lobe pneumonia possibly gram-negative, improved significantly. No chest pain. No palpitations. No fever. EXAM: Alert and oriented x2. Pulse 72, blood pressure 150/70, respiratory rate 20, temperature 98.2, pulse ox 93% on 2 L. HEENT: No jugular venous distention. CARDIOVASCULAR: S1 and S2 muffled. LUNGS: Breath sounds diminished at the bases. Scattered rhonchi and crackles. ABDOMEN: Soft, nontender. EXTREMITIES: Legs are no edema, no swelling. LABS: WBC 15.9, hemoglobin 11.8. Glucose noted. ASSESSMENT: 1. Acute right lower lobe pneumonia possibly gram-negative with acute reactive bronchospasm. 2. Congestive heart failure acute exacerbation acute on chronic diastolic dysfunction ejection fraction 50% to 55%. 3. 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 4. [id number] pulmonary hypertension. 5. Acute urinary tract infection present on admission. 6. History of atrial fibrillation, chronic intermittent. 7. History of congestive heart failure. 8. Diabetes mellitus type 2. 9. GERD. 10.Hypertension. 11.Hyperlipidemia. 12.History of DJD. 13.History of pneumonia. 14.History of sleep apnea. 15.History of hypothyroidism. 16.History of Hudson's esophagus. 17.History AICD. 18.History of cholecystectomy. 19.Borderline diabetes mellitus type 2. 20.History of mitral valve disease. 21.History of pacemaker implantation. 22.History of incarcerated hernia. RECOMMENDATIONS: Consequent to continue current medications, continue with monitoring and symptomatic treatment. Continue with bronchodilators. Will change the Lasix to p.o. IV steroids also have been tapered. Further recommendations to follow. See orders for further details. MMODL / IJN: [id number] /
[2018-09-25] MEDS: HYDROcodone/APAP 5-325MG 1 EACH TAB PO PRN ×3 (01:44→17:08)
[2018-09-25] MEDS: AZTREONAM 2 GM in SODIUM CHLORIDE 0.9% 100 ML IVPB SCH ×4 (01:44→23:18)
[2018-09-25] MEDS: LEVOTHYROXINE 25 MCG TAB PO SCH (05:42)
[2018-09-25 07:04] LABS: Glucose,Whole Blood 181 mg/dL (75-99)
[2018-09-25] MEDS: IPRATROPIUM-ALBUTEROL 3 ML NEB INHALATION SCH ×4 (07:37→20:57)
[2018-09-25 07:42] LABS: Potassium 3.8 mmol/L (3.5-5.1)
--- NOTE | 2018-09-25 08:11 | P.PN ---
Subjective Progress Note Date: 09/24/18 This is a pleasant 83-year-old female past medical history significant for mitral valve repair, chronic atrial fibrillation on long-term anticoagulation, diabetes mellitus, dyslipidemia, hypertension, obstructive sleep apnea, Hudson's esophagus, permanent pacemaker implantation. She states she follows with a stove bottom worker out of town, she is unsure of the name or location. We have been asked to see her in consultation for heart failure. She states she has been feeling increasingly weak, fatigued and coughing for the previous 1 week. 09/24: Patient states that her breathing is improved from yesterday. She is now able to ambulate to the bathroom without significant shortness of breath. She she feels she is urinating a significant amount. Her weight is documented as unchanged. Blood pressure is 161/78 this morning. Lopressor will be increased to 50 mg twice daily. Patient denies having any chest pain, lightheadedness or dizziness. No lower extremity edema. Lungs sounds are improved from yesterday. Oxygenation is improved. Patient is currently on IV Lasix at 40 mg twice da nuno. Blood pressure 161/78 heart rate 70 afebrile maintaining oxygen saturation above 98% on 2 L nasal cannula GENERAL: This is a 83-year-old female in no apparent distress at the time of my examination. HEENT: Head is atraumatic, normocephalic. Pupils are equal, round. Sclerae anicteric.There is no jugular venous distention. LUNGS: Scattered coarse breath sounds with bibasilar rales. No chest wall tenderness is noted on palpation or with deep breathing. HEART: Irregular rate and rhythm with systolic ejection murmur at the left sternal border, no rubs or gallops. S1 and S2 heard. ABDOMEN: Soft, non-tender. Bowel sounds are heard. No organomegaly noted. EXTREMITIES: No evidence of peripheral edema and no calf tenderness noted. VASCULAR: Radial and dorsalis pedis pulses palpated, no evidence of clubbing. NEUROLOGIC: Patient is awake, alert and oriented x3. ASSESSMENT Acute on chronic diastolic heart failure Pneumonia Pulmonary hypertension History of mitral valve repair Chronic persistent atrial fibrillation on long-term anticoagulation Hypertension Dyslipidemia Diabetes mellitus Obstructive sleep apnea History of BiV ICD Pulmonary fibrosis PLAN Continue IV Lasix 40 mg BID. Increase Lopressor to 50 mg twice daily Monitor blood pressure and may require further adjustment. Follow kidney function and electrolytes in the morning along with daily weights. We will continue to follow and make recommendations accordingly. Thank you kindly for this consultation. Nurse Practitioner note has been reviewed, I agree with a documented findings and plan of care. Patient was seen and examined. Objective - Vital Signs Vital signs: Vital Signs Temp 97.8 F 09/25/18 03:14 Pulse 92 09/25/18 03:14 Resp 16 09/25/18 03:14 BP 118/71 09/25/18 03:14 Pulse Ox 93 L 09/24/18 15:00 Intake & Output 09/24/18 09/25/18 09/25/18 18:59 06:59 18:59 Intake Total 240 Balance 240 Weight 61.5 kg Intake: Oral 240 Other: Voiding Method Toilet # Voids 1 - Labs CBC & Chem 7: 09/24/18 08:19 09/25/18 06:56 Labs: Abnormal Lab Results - Last 24 Hours (Table) 09/24/18 09/24/18 09/24/18 Range/Units 08:19 08:19 11:29 WBC 15.9 H (3.8-10.6) k/uL MCHC 30.7 L (31.0-37.0) g/dL Neutrophils # 14.8 H (1.3-7.7) k/uL Lymphocytes # 0.5 L (1.0-4.8) k/uL Chloride 108 H (98-107) mmol/L BUN 36 H (7-17) mg/dL Glucose 267 H (74-99) mg/dL POC Glucose (mg/dL) 233 H (75-99) mg/dL 09/24/18 09/24/18 09/25/18 Range/Units 17:06 20:30 06:56 WBC (3.8-10.6) k/uL MCHC (31.0-37.0) g/dL Neutrophils # (1.3-7.7) k/uL Lymphocytes # (1.0-4.8) k/uL Chloride 109 H (98-107) mmol/L BUN 33 H (7-17) mg/dL Glucose 181 H (74-99) mg/dL POC Glucose (mg/dL) 248 H 237 H (75-99) mg/dL 09/25/18 Range/Units 06:57 WBC (3.8-10.6) k/uL MCHC (31.0-37.0) g/dL Neutrophils # (1.3-7.7) k/uL Lymphocytes # (1.0-4.8) k/uL Chloride (98-107) mmol/L BUN (7-17) mg/dL Glucose (74-99) mg/dL POC Glucose (mg/dL) 181 H (75-99) mg/dL Microbiology - Last 24 Hours (Table) 09/20/18 23:12 Blood Culture - Preliminary Blood No Growth after 96 hours
[2018-09-25] MEDS: ATORVASTATIN 10 MG TAB PO SCH (08:21)
[2018-09-25] MEDS: predniSONE 20 MG TAB PO SCH (08:21)
[2018-09-25] MEDS: PANTOPRAZOLE 40 MG TABLET PO SCH ×2 (08:21→17:06)
[2018-09-25] MEDS: GABAPENTIN 100 MG CAP PO SCH ×3 (08:21→21:38)
[2018-09-25] MEDS: INSULIN ASPART (NovoLOG) 100 UNIT/ML VIAL SQ SCH ×4 (08:22→21:38)
[2018-09-25] MEDS: ENOXAPARIN 40 MG/0.4 ML SYRINGE SQ SCH (08:22)
[2018-09-25] MEDS: ASPIRIN 81 MG PO SCH (08:22)
[2018-09-25] MEDS: METOPROLOL TARTRATE 50 MG TAB PO SCH ×2 (08:22→21:38)
[2018-09-25] MEDS ORDERED: FUROSEMIDE 40 MG TAB PO SCH (09:00)
[2018-09-25] MEDS: DOXYCYCLINE 100 MG in SODIUM CHLORIDE 0.9% 100 ML IVPB SCH (09:47)
[2018-09-25 11:47] LABS: Glucose,Whole Blood 203 mg/dL (75-99)
[2018-09-25] MEDS: FUROSEMIDE 10 MG/ML 4 ML VIAL IV SCH ×2 (12:20→21:38)
--- NOTE | 2018-09-25 12:20 | P.PN ---
Subjective This is a pleasant 83-year-old female past medical history significant for mitral valve repair, chronic atrial fibrillation on long-term a nticoagulation, diabetes mellitus, dyslipidemia, hypertension, obstructive sleep apnea, Hudson's esophagus, permanent pacemaker implantation. She states she follows with a outreach professional out of town, she is unsure of the name or location. She is seen and examined sitting up resting comfortably in bed in no acute distress. She continues to complain of exertional shortness of breath. She states at baseline her breathing seems overall better at rest however minimal activity such as walking to the bathroom she becomes quite dyspneic. She denies symptoms of chest discomfort, palpitations or dizziness. Currently maintained on Lasix 40 mg IV twice a day. Chest xray from 09/23 indicates pulmonary fibrosis. Blood pressure 170/84 heart rate 69 afebrile maintaining oxygen saturation on room air. Laboratory data reviewed, sodium 142, potassium 3.8, creatinine 0.77. No documentation of output. GENERAL: This is a 83-year-old female in no apparent distress at the time of my examination. HEENT: Head is atraumatic, normocephalic. Pupils are equal, round. Sclerae anicteric. Conjunctivae are clear. Mucous membranes of the mouth are moist. Neck is supple. There is no jugular venous distention. No carotid bruit is heard. LUNGS: Course throughout with bibasilar rales. No wheezes. No chest wall tenderness is noted on palpation or with deep breathing. HEART: Irregular rate and rhythm with systolic ejection murmur at the left sternal border, no rubs or gallops. S1 and S2 heard. EXTREMITIES: No evidence of peripheral edema and no calf tenderness noted. ASSESSMENT Acute on chronic diastolic heart failure Pneumonia Leukocytosis Pulmonary hypertension, RVSP 69.62 History of mitral valve repair Chronic persistent atrial fibrillation on long-term anticoagulation Hypertension Dyslipidemia Diabetes mellitus Obstructive sleep apnea History of BiV ICD Pulmonary fibrosis PLAN Continue IV diuresis. Add aldactone 25 mg daily. Repeat chest xray tomorrow. Follow kidney function and electrolytes in the morning. Further recommendations to follow. Clinically she is not showing much improvement in her respiratory status, consider pulmonary opinion. Further recommendations to follow. Nurse Practitioner note has been reviewed, I agree with a documented findings and plan of care. Patient was seen and examined. Objective - Vital Signs Vital signs: Vital Signs Temp 97.9 F 09/25/18 07:00 Pulse 69 09/25/18 07:50 Resp 17 09/25/18 08:00 BP 170/84 09/25/18 07:00 Pulse Ox 99 09/25/18 07:00 Intake & Output 09/24/18 09/25/18 09/25/18 18:59 06:59 18:59 Intake Total 240 Balance 240 Weight 61.5 kg Intake: Oral 240 Other: Voiding Method Toilet Toilet # Voids 1 - Labs CBC & Chem 7: 09/24/18 08:19 09/25/18 06:56 Labs: Abnormal Lab Results - Last 24 Hours (Table) 09/24/18 09/24/18 09/24/18 Range/Units 11:29 17:06 20:30 Chloride (98-107) mmol/L BUN (7-17) mg/dL Glucose (74-99) mg/dL POC Glucose (mg/dL) 233 H 248 H 237 H (75-99) mg/dL 09/25/18 09/25/18 Range/Units 06:56 06:57 Chloride 109 H (98-107) mmol/L BUN 33 H (7-17) mg/dL Glucose 181 H (74-99) mg/dL POC Glucose (mg/dL) 181 H (75-99) mg/dL Microbiology - Last 24 Hours (Table) 09/20/18 23:12 Blood Culture - Preliminary Blood No Growth after 96 hours
[2018-09-25] MEDS: SPIRONOLACTONE 25 MG TAB PO SCH (12:31)
[2018-09-25] MEDS ORDERED: diphenhydrAMINE 25 MG CAP PO PRN (14:47)
[2018-09-25 16:41] LABS: Glucose,Whole Blood 198 mg/dL (75-99)
--- NOTE | 2018-09-25 17:05 | PN ---
PROGRESS NOTE DATE OF SERVICE: 09/25/2018 REASON FOR FOLLOWUP: 1. Pneumonia. 2. UTI. INTERVAL HISTORY: The patient is afebrile. The patient is breathing comfortably. She continues to have some cough but is not bringing up any sputum. No nausea. No vomiting. No abdominal pain. No diarrhea. Urinary symptoms have resolved. PHYSICAL EXAMINATION: Blood pressure 138/80 with a pulse of 72, temperature 97.8. She is 94% on room air. General description is an elderly female up in the bed in no distress. RESPIRATORY SYSTEM: Unlabored breathing with coarse breath sounds bilaterally. Occasional wheeze. HEART: S1, S2. Regular rate and rhythm. ABDOMEN: Soft. No tenderness. LABS: BUN of 33, creatinine 0.77. No CBC done today. Urine with E coli. Blood culture negative. Sputum not collected. DIAGNOSTIC IMPRESSION AND PLAN: Patient admitted to hospital with fever, cough, with concern for pneumonia. The patient unfortunately did have a rash to Rocephin and Zithromax therapy. Currently on aztreonam and doxycycline with slow clinical response. Will repeat a chest x-ray, try to obtain a sputum sample to narrow down antibiotics. Continue with supportive care. MMODL / IJN: [id number] /
--- NOTE | 2018-09-25 18:27 | PN ---
PROGRESS NOTE DATE OF SERVICE: 09/25/2018 This 83-year-old who woman was admitted with acute right lower lobe pneumonia also has CHF. Cardiology following the patient closely. Patient is on IV Lasix at this time. No chest pain. No palpitations. No fever. PHYSICAL EXAMINATION: Alert and oriented x3. Pulse 72, blood pressure 130/80, respirations 16, temperature 97.8, pulse ox 94% on room air. HEENT: Conjunctivae normal. NECK: No jugular venous distention. CARDIOVASCULAR SYSTEM: S1, S2 muffled. RESPIRATORY SYSTEM: Breath sounds diminished at the bases. Bilateral scattered rhonchi and crackles. ABDOMEN: Soft, non-tender. NERVOUS SYSTEM: No focal deficit. LABS: WBC 15.9. Sodium 142. UA noted. UTI. ASSESSMENT: 1. Acute right lower lobe pneumonia, possibly gram-negative, with acute reactive bronchospasm. 2. Congestive heart failure, acute exacerbation, with acute on chronic diastolic dysfunction, ejection fraction 50% to 55%. 3. Multiple valvular abnormalities, including mild to moderate mitral regurgitation, mild to moderate stenosis of the bioprosthetic mitral valve as well as moderate to severe tricuspid regurgitation. 4. Moderate to severe pulmonary hypertension. 5. Acute urinary tract infection, present on admission. 6. History of atrial fibrillation, chronic, intermittent. 7. History of congestive heart failure. 8. Diabetes mellitus, type 2. 9. Gastroesophageal reflux disease. 10.Hypertension. 11.Hyperlipidemia. 12.History of degenerative joint disease. 13.History of pneumonia. 14.History of sleep apnea. 15.History of hypothyroidism. 16.History of Hudson's esophagus. 17.History of automated implantable cardioverter defibrillator. 18.History of cholecystectomy. 19.Borderline diabetes mellitus, type 2. 20.History of mitral valve disease. 21.History of pacemaker implantation. 22.History of incarcerated hernia. RECOMMENDATIONS AND DISCUSSION: I recommend to continue current medications, continue with the monitoring, symptomatic treatment. Otherwise at this time we will monitor the patient closely. I would also recommend closely following with Cardiology. I would also recommend a follow-up chest x- ray and continue to monitor. Further recommendations to follow. MMODL / IJN: [id number] /
--- NOTE | 2018-09-25 19:12 | XR ---
EXAMINATION TYPE: XR chest 2V DATE OF EXAM: 09/25/2018 COMPARISON: Chest x-ray from 3 days ago. HISTORY: Pneumonia progress study. TECHNIQUE: Frontal and lateral views of the chest are obtained. FINDINGS: There is chronic parenchymal changes without suspicious new focal air space opacity, pleur al effusion, or pneumothorax seen. The cardiac silhouette size remains mildly enlarged with multi le ad pacemaker/ICD and metallic aortic valve redemonstrated. Overlying sternal wires are again seen. Ch olecystectomy clips are redemonstrated The osseous structures are demineralized. IMPRESSION: Chronic parenchymal changes and cardiomegaly without acute pulmonary process.
[2018-09-25 19:55] LABS: Glucose,Whole Blood 240 mg/dL (75-99)
[2018-09-25] MEDS: DOXYCYCLINE 100 MG CAP PO SCH (22:22)
[2018-09-26] MEDS: HYDROcodone/APAP 5-325MG 1 EACH TAB PO PRN ×3 (04:06→20:53)
[2018-09-26] MEDS: LEVOTHYROXINE 25 MCG TAB PO SCH (05:10)
[2018-09-26 07:00] LABS: Glucose,Whole Blood 199 mg/dL (75-99)
[2018-09-26] MEDS: AZTREONAM 2 GM in SODIUM CHLORIDE 0.9% 100 ML IVPB SCH ×3 (07:32→23:30)
[2018-09-26] MEDS: ATORVASTATIN 10 MG TAB PO SCH (07:34)
[2018-09-26] MEDS: SPIRONOLACTONE 25 MG TAB PO SCH (07:34)
[2018-09-26] MEDS: predniSONE 20 MG TAB PO SCH (07:34)
[2018-09-26] MEDS: INSULIN ASPART (NovoLOG) 100 UNIT/ML VIAL SQ SCH ×4 (07:35→20:53)
[2018-09-26] MEDS: PANTOPRAZOLE 40 MG TABLET PO SCH ×2 (07:35→17:04)
[2018-09-26] MEDS: METOPROLOL TARTRATE 50 MG TAB PO SCH ×2 (07:35→20:53)
[2018-09-26] MEDS: ASPIRIN 81 MG PO SCH (07:35)
[2018-09-26 07:36] LABS: Calcium 9.1 mg/dL (8.4-10.2); Potassium 3.7 mmol/L (3.5-5.1)
[2018-09-26] MEDS: FUROSEMIDE 10 MG/ML 4 ML VIAL IV SCH (07:36)
[2018-09-26] MEDS: ENOXAPARIN 40 MG/0.4 ML SYRINGE SQ SCH (07:36)
[2018-09-26] MEDS: GABAPENTIN 100 MG CAP PO SCH ×3 (07:36→20:53)
[2018-09-26] MEDS: DOXYCYCLINE 100 MG CAP PO SCH ×2 (07:37→20:53)
[2018-09-26] MEDS: IPRATROPIUM-ALBUTEROL 3 ML NEB INHALATION SCH ×4 (09:06→20:13)
[2018-09-26 11:57] LABS: Glucose,Whole Blood 119 mg/dL (75-99)
[2018-09-26] MEDS ORDERED: WARFARIN 3 MG TAB PO SCH (14:10)
--- NOTE | 2018-09-26 14:17 | P.PN ---
Subjective This is a pleasant 83-year-old female past medical history significant for mitral valve repair, chronic atrial fibrillation on long-term a nticoagulation, diabetes mellitus, dyslipidemia, hypertension, obstructive sleep apnea, Hudson's esophagus, permanent pacemaker implantation. She states she follows with a magneto specialist out of town, she is unsure of the name or location. She is seen and examined sitting up in the chair eating lunch. She is feeling better overall with no increase in her shortness of breath. She still has some dyspnea on exertion, however is getting better everyday. She denies chest pain, palpitations or dizziness. Blood pressure 175/82 heart rate 73 afebrile maintaining oxygen saturation on room air. Laboratory data reviewed, sodium 142, potassium 3.7, creatinine 0.79. Repeat chest xray this morning reveals chronic parenchymal changes without suspicious opacity or pleural effusion. GENERAL: This is a 83-year-old female in no apparent distress at the time of my examination. HEENT: Head is atraumatic, normocephalic. Pupils are equal, round. Sclerae anicteric. Conjunctivae are clear. Mucous membranes of the mouth are moist. Neck is supple. There is no jugular venous distention. No carotid bruit is heard. LUNGS: Scattered rhonchi with bibasilar rales. No wheezes. No chest wall tenderness is noted on palpation or with deep breathing. Improved from yesterday. HEART: Irregular rate and rhythm with systolic ejection murmur at the left sternal border, no rubs or gallops. S1 and S2 heard. EXTREMITIES: No evidence of peripheral edema and no calf tenderness noted. ASSESSMENT Acute on chronic diastolic heart failure Pneumonia Leukocytosis Pulmonary hypertension, RVSP 69.62 History of mitral valve repair Chronic persistent atrial fibrillation on long-term anticoagulation Hypertension Dyslipidemia Diabetes mellitus Obstructive sleep apnea History of BiV ICD Pulmonary fibrosis PLAN Transition to oral diuretics. Resume coumadin and check PT/INR. Add losartan 50 mg daily for better blood pressure control. Follow up with her primary magneto specialist upon discharge. She states she sees so meone in [place] and her daughter works at his office so she will follow up as recommended. Nurse Practitioner note has been reviewed, I agree with a documented findings and plan of care. Patient was seen and examined. Objective - Vital Signs Vital signs: Vital Signs Temp 98.0 F 09/26/18 07:00 Pulse 76 09/26/18 12:11 Resp 18 09/26/18 07:20 BP 175/82 09/26/18 07:00 Pulse Ox 96 09/26/18 07:00 Intake & Output 09/25/18 09/26/18 09/26/18 18:59 06:59 18:59 Weight 60.5 kg Other: Voiding Method Toilet Toilet - Labs CBC & Chem 7: 09/24/18 08:19 09/26/18 06:44 Labs: Abnormal Lab Results - Last 24 Hours (Table) 09/25/18 09/25/18 09/26/18 Range/Units 16:38 19:53 06:44 BUN 36 H (7-17) mg/dL Glucose 178 H (74-99) mg/dL POC Glucose (mg/dL) 198 H 240 H (75-99) mg/dL 09/26/18 09/26/18 Range/Units 06:58 11:25 BUN (7-17) mg/dL Glucose (74-99) mg/dL POC Glucose (mg/dL) 199 H 119 H (75-99) mg/dL Microbiology - Last 24 Hours (Table) 09/20/18 23:12 Blood Culture - Preliminary Blood No Growth after 120 hours
[2018-09-26] MEDS: LOSARTAN 50 MG TAB PO SCH (14:45)
--- NOTE | 2018-09-26 14:46 | P.CNPUL ---
History of Present Illness Consult date: 09/26/18 Requesting physician: Darwin Clark Reason for consult: dyspnea, abnormal CXR/CT Chief complaint: Shortness breath, cough, congestion History of present illness: This is a very pleasant 83-year-old female patient who knows with Dr. Farah out of the [place] area. She has a history of atrial fibrillation anticoagulated with warfarin, congestive heart failure with ischemic cardiomyopathy status post AICD placement, previous mitral valve bioprosthetic replacement, diabetes mellitus, gastroesophageal reflux disease, hypertension, hyperlipidemia, osteoarthritis, hypothyroidism, Herr's esophagitis. She presented here to the emergency room back on 09/20/2018 with a three-day history of febrile illness. She was admitted for weakness and dehydration and question of early pneumonia and the right basilar region. She was initially started on ceftriaxone and azithromycin but developed a rash both were discontinued and was started on Azactam and Vibramycin Infectious disease was consulted. Urine cultures also positive for E. coli. Most recent chest x-ray showed chronic parenchymal changes and cardiomegaly without acute pulmonary process. She is seen today in consultation on the selective care unit. She is currently awake and alert in no acute distress. She is maintaining O2 saturations in the mid 90s on room air. She's been afebrile. Creatinine 0.79. She is currently on prednisone. Antiplatelet with warfarin. Review of Systems REVIEW OF SYSTEMS: CONSTITUTIONAL: Denies any recent significant weight loss or weight gain. EYES: Denies change in vision. EARS, NOSE, MOUTH, THROAT: Denies headaches, denies sore throat. CARDIOVASCULAR: Denies chest pain, palpitations or syncopal episodes. RESPIRATORY: Positive for shortness of breath, cough, congestion no hemoptysis. GASTROINTESTINAL: Denies change in appetite, denies abdominal pain GENITOURINARY: Denies hematuria, denies infections. MUSKULOSKELETAL: Denies pain, denies swelling. INTEGUMENTARY: Denies rash, denies eczema. NEUROLOGICAL: Denies recent memory loss, no recent seizure activity. PSYCHIATRIC: Denies anxiety, denies depression. HEMATOLOGIC/LYMPHATIC: Denies anemia, denies enlarged lymph nodes. Past Medical History Past Medical History: Atrial Fibrillation, Heart Failure, Diabetes Mellitus, GERD/Reflux, Hyperlipidemia, Hypertension, Osteoarthritis (OA), Pneumonia, Sleep Apnea/CPAP/BIPAP, Thyroid Disorder Additional Past Medical History / Comment(s): herr's esophagus. Patient reports that she is "borderline diabetic" but does not consider herself diabetic and does not take medication for this. Patient reports that she is up to date on her flu and pneumonia vaccines, but is unable to verify the exact date. 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/16, incarcerated hernia in bowel Past Anesthesia/Blood Transfusion Reactions: No Reported Reaction Type of Cardiac Device: Permanent Pacemaker Device Placement Date:: 2011 Past Psychological History: No Psychological Hx Reported Smoking Status: Never smoker Past Alcohol Use History: None Reported Past Drug Use History: None Reported - Past Family History Father Family Medical History: Myocardial Infarction (MS) Mother Family Medical History: Osteoarthritis (OA) Medications and Allergies Home Medications Medication Instructions Recorded Confirmed Type Gabapentin [Neurontin] 100 mg PO TID 10/08/14 09/20/18 History Levothyroxine Sodium [Synthroid] 25 mcg PO DAILY 06/23/16 09/20/18 History Ferrous Sulfate [Iron (65 MG 325 mg PO Q72H 06/03/17 09/20/18 History Elemental)] Lovastatin [Mevacor] 20 mg PO DAILY 06/03/17 09/20/18 History Aspirin 81 mg PO DAILY 06/06/17 09/20/18 History Esomeprazole Magnesium [NexIUM] 20 mg PO BID 06/06/17 09/20/18 History HYDROcodone/APAP 5-325MG [[place] 1 tab PO TID PRN #15 tab 06/09/17 09/20/18 Rx 5-325] Sennosides [Senokot] 8.6 mg PO DAILY PRN #30 tab 06/09/17 09/20/18 Rx Azithromycin [Zithromax Z-pack] See Taper PO DAILY 09/20/18 09/20/18 History Docusate [Colace] 100 mg PO DAILY 09/20/18 09/20/18 History Metoprolol Tartrate [Lopressor] 25 mg PO BID 09/20/18 09/20/18 History Torsemide [Demadex] 10 mg PO DAILY 09/20/18 09/20/18 History Warfarin Sodium [Coumadin] 3 mg PO HS 09/20/18 09/20/18 History predniSONE 40 mg PO DAILY 09/20/18 09/20/18 History Allergies Allergy/AdvReac Type Severity Reaction Status Date / Time amoxicillin trihydrate Allergy Swelling Verified 09/20/18 22:51 [From Augmentin] ciprofloxacin [From Cipro] Allergy Swelling Verified 09/20/18 22:51 ciprofloxacin HCl Allergy Swelling Verified 09/20/18 22:51 [From Cipro] potassium clavulanate Allergy Swelling Verified 09/20/18 22:51 [From Augmentin] Sulfa (Sulfonamide Allergy Rash/Hives Verified 09/20/18 22:51 Antibiotics) Physical Exam Vitals: Vital Signs Temp Pulse Pulse Pulse Resp BP BP 09/26/18 12:11 76 09/26/18 12:00 72 09/26/18 09:17 76 09/26/18 09:06 76 09/26/18 07:20 18 09/26/18 07:00 98.0 F 73 18 175/82 09/26/18 01:23 97.5 F L 66 16 165/78 09/25/18 21:07 78 09/25/18 20:57 74 09/25/18 20:12 97.6 F 93 70 18 168/82 09/25/18 17:29 72 09/25/18 17:17 74 Pulse Ox 09/26/18 12:11 09/26/18 12:00 09/26/18 09:17 09/26/18 09:06 09/26/18 07:20 09/26/18 07:00 96 09/26/18 01:23 91 L 09/25/18 21:07 09/25/18 20:57 09/25/18 20:12 09/25/18 17:29 09/25/18 17:17 Intake and Output 09/25/18 09/26/18 09/26/18 22:59 06:59 14:59 Other: Voiding Method Toilet Weight 60.5 kg GENERAL EXAM: Alert, active, comfortable in no apparent distress. On room air. HEAD: Normocephalic. EYES: Normal reaction of pupils, equal size. NOSE: Clear with pink turbinates. THROAT: No erythema or exudates. NECK: No masses, no JVD. CHEST: No chest wall deformity. LUNGS: Equal air entry with us in the right posterior base CVS: S1 and S2 normal with no audible murmur, regular rhythm. ABDOMEN: No hepatosplenomegaly, normal bowel sounds, no guarding or rigidity. SPINE: No scoliosis or deformity SKIN: No rashes CENTRAL NERVOUS SYSTEM: No focal deficits, tone is normal in all 4 extremities. EXTREMITIES: There is no peripheral edema. No clubbing, no cyanosis. Peripheral pulses are intact. Results - Laboratory Findings CBC and BMP: 09/24/18 08:19 09/26/18 06:44 PT/INR, D-dimer PT 17.5 sec (9.0-12.0) H 09/20/18 23:12 INR 1.8 (<1.2) H 09/20/18 23:12 Abnormal lab findings: Abnormal Labs 09/20/18 09/20/18 09/20/18 23:12 23:12 23:12 WBC 12.5 H MCHC Neutrophils # Neutrophils # (Manual) 11.20 H Lymphocytes # Lymphocytes # (Manual) 0.63 L PT 17.5 H INR 1.8 H APTT 32.3 H Potassium 5.2 H Chloride BUN 28 H Glucose 175 H POC Glucose (mg/dL) AST 41 H Urine Appearance Urine Protein Urine Blood Ur Leukocyte Esterase Urine WBC Urine Bacteria 09/21/18 09/21/18 09/21/18 06:16 06:41 11:46 WBC MCHC Neutrophils # Neutrophils # (Manual) Lymphocytes # Lymphocytes # (Manual) PT INR APTT Potassium Chloride BUN Glucose POC Glucose (mg/dL) 155 H 161 H AST Urine Appearance Cloudy H Urine Protein 1+ H Urine Blood Small H Ur Leukocyte Esterase Large H Urine WBC 142 H Urine Bacteria Many H 09/21/18 09/21/18 09/22/18 19:26 20:01 06:08 WBC MCHC Neutrophils # Neutrophils # (Manual) Lymphocytes # 0.5 L Lymphocytes # (Manual) PT INR APTT Potassium Chloride BUN Glucose POC Glucose (mg/dL) 163 H 144 H AST Urine Appearance Urine Protein Urine Blood Ur Leukocyte Esterase Urine WBC Urine Bacteria 09/22/18 09/22/18 09/22/18 06:08 07:01 11:35 WBC MCHC Neutrophils # Neutrophils # (Manual) Lymphocytes # Lymphocytes # (Manual) PT INR APTT Potassium Chloride 109 H BUN 24 H Glucose 219 H POC Glucose (mg/dL) 198 H 272 H AST Urine Appearance Urine Protein Urine Blood Ur Leukocyte Esterase Urine WBC Urine Bacteria 09/22/18 09/22/18 09/23/18 16:45 20:26 07:14 WBC MCHC Neutrophils # Neutrophils # (Manual) Lymphocytes # Lymphocytes # (Manual) PT INR APTT Potassium Chloride BUN Glucose POC Glucose (mg/dL) 268 H 211 H 200 H AST Urine Appearance Urine Protein Urine Blood Ur Leukocyte Esterase Urine WBC Urine Bacteria 09/23/18 09/23/18 09/23/18 07:36 07:36 11:35 WBC 15.8 H MCHC Neutrophils # 14.4 H Neutrophils # (Manual) Lymphocytes # 0.7 L Lymphocytes # (Manual) PT INR APTT Potassium Chloride 108 H BUN 27 H Glucose 205 H POC Glucose (mg/dL) 274 H AST Urine Appearance Urine Protein Urine Blood Ur Leukocyte Esterase Urine WBC Urine Bacteria 09/23/18 09/23/18 09/24/18 16:53 19:54 08:19 WBC 15.9 H MCHC 30.7 L Neutrophils # 14.8 H Neutrophils # (Manual) Lymphocytes # 0.5 L Lymphocytes # (Manual) PT INR APTT Potassium Chloride BUN Glucose POC Glucose (mg/dL) 174 H 234 H AST Urine Appearance Urine Protein Urine Blood Ur Leukocyte Esterase Urine WBC Urine Bacteria 09/24/18 09/24/18 09/24/18 08:19 11:29 17:06 WBC MCHC Neutrophils # Neutrophils # (Manual) Lymphocytes # Lymphocytes # (Manual) PT INR APTT Potassium Chloride 108 H BUN 36 H Glucose 267 H POC Glucose (mg/dL) 233 H 248 H AST Urine Appearance Urine Protein Urine Blood Ur Leukocyte Esterase Urine WBC Urine Bacteria 09/24/18 09/25/18 09/25/18 20:30 06:56 06:57 WBC MCHC Neutrophils # Neutrophils # (Manual) Lymphocytes # Lymphocytes # (Manual) PT INR APTT Potassium Chloride 109 H BUN 33 H Glucose 181 H POC Glucose (mg/dL) 237 H 181 H AST Urine Appearance Urine Protein Urine Blood Ur Leukocyte Esterase Urine WBC Urine Bacteria 09/25/18 09/25/18 09/25/18 11:30 16:38 19:53 WBC MCHC Neutrophils # Neutrophils # (Manual) Lymphocytes # Lymphocytes # (Manual) PT INR APTT Potassium Chloride BUN Glucose POC Glucose (mg/dL) 203 H 198 H 240 H AST Urine Appearance Urine Protein Urine Blood Ur Leukocyte Esterase Urine WBC Urine Bacteria 09/26/18 09/26/18 09/26/18 06:44 06:58 11:25 WBC MCHC Neutrophils # Neutrophils # (Manual) Lymphocytes # Lymphocytes # (Manual) PT INR APTT Potassium Chloride BUN 36 H Glucose 178 H POC Glucose (mg/dL) 199 H 119 H AST Urine Appearance Urine Protein Urine Blood Ur Leukocyte Esterase Urine WBC Urine Bacteria - Diagnostic Findings Chest x-ray: image reviewed Assessment and Plan Assessment: Impression: #1 Acute right lower lobe pneumonia, community-acquired with reactive bronchospasm. #2 Acute on chronic diastolic congestive heart failure. Preserved left ventricular systolic function. Status post AICD placement. #3 Moderate to severe pulmonary hypertension. #4 Interstitial lung disease of unclear etiology. #5 Valvular heart disease with previous bioprosthetic mitral valve. #6 urinary tract infection. #7 Paroxysmal atrial fibrillation anticoagulated with warfarin. #8 Diabetes mellitus. #9 Hypertension. #10 Hyperlipidemia. #11. Esophagus. #12 Hypothyroidism. Plan: The patient was seen and evaluated by Dr. Bearden. Chest x-ray and labs were reviewed. She may have some component of interstitial lung disease that would be worked up in the outpatient setting. She should follow-up with us in 1-2 weeks post discharge. Continue her current treatment plan. We'll continue to follow. I, the cosigning physician, performed a history & physical examination of the patient. Lungs sounds with crackles in the bilateral posterior bases. Maintaining good O2 saturations in the 90s on room air. I discussed the assessment and plan of care with my nurse practitioner, Judi Parada. I attest to the above note as dictated by her. Time with Patient: Greater than 30
[2018-09-26 15:56] LABS: INR 1.1 (<1.2)
[2018-09-26 16:58] LABS: Glucose,Whole Blood 223 mg/dL (75-99)
[2018-09-26] MEDS: FUROSEMIDE 20 MG TAB PO SCH (17:04)
[2018-09-26] MEDS ORDERED: WARFARIN 5 MG TAB PO ONE (18:00)
[2018-09-26 19:20] VITALS: RESP 16
[2018-09-26 19:52] LABS: Glucose,Whole Blood 253 mg/dL (75-99)
--- NOTE | 2018-09-26 19:55 | PN ---
PROGRESS NOTE DATE OF SERVICE: 09/26/2018 This 83-year-old woman who was admitted with acute right lower lobe pneumonia also had CHF, acute exacerbation. Patient had multiple other abnormalities, also. Cardiology is following the patient closely. Nephrology is also following the patient closely. Infectious Disease is also following the patient closely. No chest pain. No palpitations. No fever. Dr. Bearden has recommended continuing with current medications. Past medical reviewed. PHYSICAL EXAMINATION: Patient is alert, oriented x3. Pulse 71, blood pressure 164/70, respiration 12, temperature 98.2, pulse ox 96% on room air. HEENT: Conjunctivae normal. NECK: No jugular venous distention. CARDIOVASCULAR SYSTEM: S1, S2 muffled. RESPIRATORY SYSTEM: Breath sounds diminished at the bases. Bilateral scattered rhonchi and crackles. ABDOMEN: Soft, non-tender. LEGS: No edema. No swelling. NERVOUS SYSTEM: No focal deficit. LABS: Sodium 142, potassium 3.7. Other labs are noted. Chest x-ray which was done yesterday was personally reviewed by me. It shows some CHF, but much improved. Other labs are noted. ASSESSMENT: 1. Acute right lower lobe pneumonia, possibly gram-negative, with acute reactive bronchospasm. 2. Congestive heart failure, acute exacerbation, with acute on chronic diastolic dysfunction, ejection fraction 50% to 55%. 3. Multiple valvular abnormalities, including mild to moderate mitral regurgitation, mild to moderate stenosis of the bioprosthetic mitral valve, as well as moderate to severe tricuspid regurgitation. 4. Moderate to severe pulmonary hypertension. 5. Acute urinary tract infection, present on admission. 6. History of atrial fibrillation, chronic, intermittent. 7. History of congestive heart failure. 8. Diabetes mellitus, type 2. 9. Gastroesophageal reflux disease. 10.Hypertension. 11.Hyperlipidemia. 12.History of degenerative joint disease. 13.History of pneumonia. 14.History of sleep apnea. 15.History of hypothyroidism. 16.History of Hudson's esophagus. 17.History of automated implantable cardioverter defibrillator. 18.History of cholecystectomy. 19.Borderline diabetes mellitus, type 2. 20.History of mitral valve disease. 21.History of pacemaker implantation. 22.History of incarcerated hernia. 23.FULL CODE. RECOMMENDATIONS AND DISCUSSION: In this 83-year-old woman who presented with multiple complex medical issues, we will monitor the patient closely, continue the current management, continue symptomatic treatment. Will continue with diuretics. Continue with empiric antibiotics. Otherwise, continue with the bronchodilators. Prognosis is guarded because of multiple complex medical issues. Further recommendations to follow. See orders for further details. We will repeat the labs. MMODL / IJN: [id number] /
--- NOTE | 2018-09-26 23:37 | PN ---
PROGRESS NOTE DATE OF SERVICE: 09/26/2018. REASON FOR FOLLOWUP: E coli urinary tract infection, possible pneumonia. INTERVAL HISTORY: The patient is afebrile. The patient has been breathing more comfortably. He did have some cough which has decreased in intensity and is mostly dry in nature. No nausea, no vomiting. No abdominal pain, no diarrhea. PHYSICAL EXAMINATION: Blood pressure is 144/83 with a pulse of 73, temperature 98, pulse ox 92% on room air. GENERAL DESCRIPTION: An elderly female up in the bed in no distress. RESPIRATORY SYSTEM: Unlabored breathing. Coarse breath sounds bilaterally. HEART: S1, S2. Regular rate and rhythm. ABDOMEN: Soft, nontender. LABS: No new labs have been obtained today. The patient did have a chest x-ray completed yesterday showing some chronic changes. No pneumonia. DIAGNOSTIC IMPRESSION AND PLAN: Patient admitted to the hospital with difficulty breathing and cough with concern for pneumonia, possibly component of urinary tract infection. The patient did have multiple antibiotic allergies and apparently did have Rocephin on this admission. Currently covered with and doxy. Chest x-ray yesterday did not show any evidence of consolidation. Underlying E coli UTI has been adequately treated. Will finish therapy with short course of oral amoxicillin on discharge. Continue supportive care. MMODL / IJN: [id number] /
[2018-09-27] MEDS: LEVOTHYROXINE 25 MCG TAB PO SCH (05:14)
[2018-09-27] MEDS: HYDROcodone/APAP 5-325MG 1 EACH TAB PO PRN ×2 (05:17→12:42)
[2018-09-27 07:11] LABS: Glucose,Whole Blood 117 mg/dL (75-99)
[2018-09-27] MEDS: LOSARTAN 50 MG TAB PO SCH (07:30)
[2018-09-27] MEDS: ENOXAPARIN 40 MG/0.4 ML SYRINGE SQ SCH (07:30)
[2018-09-27] MEDS: ASPIRIN 81 MG PO SCH (07:30)
[2018-09-27] MEDS: GABAPENTIN 100 MG CAP PO SCH ×2 (07:30→16:18)
[2018-09-27] MEDS: DOXYCYCLINE 100 MG CAP PO SCH (07:30)
[2018-09-27] MEDS: FUROSEMIDE 20 MG TAB PO SCH (07:30)
[2018-09-27] MEDS: METOPROLOL TARTRATE 50 MG TAB PO SCH (07:30)
[2018-09-27] MEDS: SPIRONOLACTONE 25 MG TAB PO SCH (07:30)
[2018-09-27] MEDS: ATORVASTATIN 10 MG TAB PO SCH (07:30)
[2018-09-27] MEDS: PANTOPRAZOLE 40 MG TABLET PO SCH (07:30)
[2018-09-27] MEDS: INSULIN ASPART (NovoLOG) 100 UNIT/ML VIAL SQ SCH ×2 (07:31→12:43)
[2018-09-27] MEDS: predniSONE 20 MG TAB PO SCH (07:31)
[2018-09-27] MEDS: IPRATROPIUM-ALBUTEROL 3 ML NEB INHALATION SCH ×3 (08:23→15:25)
[2018-09-27 08:37] LABS: HCT 38.2 % (34.0-46.0); HGB 11.8 gm/dL (11.4-16.0); MCH 28.1 pg (25.0-35.0); MCV 90.6 fL (80.0-100.0); Platelet Count 293 k/uL (150-450); RBC 4.22 m/uL (3.80-5.40); RDW 14.3 % (11.5-15.5); WBC 14.8 k/uL (3.8-10.6)
[2018-09-27 08:41] LABS: Calcium 9.2 mg/dL (8.4-10.2); Potassium 3.5 mmol/L (3.5-5.1)
[2018-09-27 08:43] LABS: INR 1.1 (<1.2); Prothrombin Time 11.9 sec (9.0-12.0)
[2018-09-27 09:38] VITALS: BMI 21.9
[2018-09-27] MEDS: AZTREONAM 2 GM in SODIUM CHLORIDE 0.9% 100 ML IVPB SCH (10:04)
--- NOTE | 2018-09-27 10:50 | P.PN ---
Subjective This is a pleasant 83-year-old female past medical history significant for mitral valve repair, chronic atrial fibrillation on long-term a nticoagulation, diabetes mellitus, dyslipidemia, hypertension, obstructive sleep apnea, Hudson's esophagus, permanent pacemaker implantation. She states she follows with a manager wholesale Dr. Burns in [place]. She is seen and examined sitting up in bed watching her phone. She continues to feel short of breath mildly with exertion with significant improvement since admission. She denies chest pain, dizziness or palpitations. Has been transitioned to PO lasix. Laboratory data reviewed, WBC 14.8, hgb 11.8, platelets 293, sodium 141, potassium 3.5, creatinine 0.75, INR 1.1. BLood pressure 167/78 heart rate 74 afebrile. GENERAL: This is a 83-year-old female in no apparent distress at the time of my examination. HEENT: Head is atraumatic, normocephalic. Pupils are equal, round. Sclerae anicteric. Conjunctivae are clear. Mucous membranes of the mouth are moist. Neck is supple. There is no jugular venous distention. No carotid bruit is heard. LUNGS: Scattered rhonchi with bibasilar rales. No wheezes. No chest wall tenderness is noted on palpation or with deep breathing. Improved from yesterday. HEART: Irregular rate and rhythm with systolic ejection murmur at the left sternal border, no rubs or gallops. S1 and S2 heard. EXTREMITIES: No evidence of peripheral edema and no calf tenderness noted. ASSESSMENT Acute on chronic diastolic heart failure Pneumonia Leukocytosis Pulmonary hypertension, RVSP 69.62 History of mitral valve repair Chronic persistent atrial fibrillation on long-term anticoagulation Hypertension Dyslipidemia Diabetes mellitus Obstructive sleep apnea History of BiV ICD Pulmonary fibrosis PLAN Stable from a cardiac perspective. We will continue to follow as needed. Follow up with her primary manager wholesale upon discharge. Nurse Practitioner note has been reviewed, I agree with a documented findings and plan of care. Patient was seen and examined. Objective - Vital Signs Vital signs: Vital Signs Temp 97.9 F 09/27/18 07:00 Pulse 72 09/27/18 08:35 Resp 16 09/27/18 07:00 BP 167/78 09/27/18 07:00 Pulse Ox 96 09/27/18 08:26 Intake & Output 09/26/18 09/27/18 09/27/18 18:59 06:59 18:59 Weight 61.5 kg 61.5 kg Other: Voiding Method Toilet - Labs CBC & Chem 7: 09/27/18 07:11 09/27/18 07:11 Labs: Abnormal Lab Results - Last 24 Hours (Table) 09/26/18 09/26/18 09/26/18 Range/Units 11:25 16:57 19:51 WBC (3.8-10.6) k/uL BUN (7-17) mg/dL Glucose (74-99) mg/dL POC Glucose (mg/dL) 119 H 223 H 253 H (75-99) mg/dL 09/27/18 09/27/18 09/27/18 Range/Units 07:02 07:11 07:11 WBC 14.8 H (3.8-10.6) k/uL BUN 34 H (7-17) mg/dL Glucose 115 H (74-99) mg/dL POC Glucose (mg/dL) 117 H (75-99) mg/dL Microbiology - Last 24 Hours (Table) 09/20/18 23:12 Blood Culture - Final Blood No Growth after 144 hours
[2018-09-27 11:46] LABS: Glucose,Whole Blood 204 mg/dL (75-99)
--- NOTE | 2018-09-27 13:57 | P.PN ---
Subjective Progress Note Date: 09/27/18 Principal diagnosis: Acute right lower lobe pneumonia, community-acquired This is a very pleasant 83-year-old female patient who knows with Dr. Farah out of the [place] area. She has a history of atrial fibrillation anticoagulated with warfarin, congestive heart failure with ischemic cardiomyopathy status post AICD placement, previous mitral valve bioprosthetic replacement, diabetes mellitus, gastroesophageal reflux disease, hypertension, hyperlipidemia, osteoarthritis, hypothyroidism, Hudson's esophagitis. She presented here to the emergency room back on 09/20/2018 with a three-day history of febrile illness. She was admitted for weakness and dehydration and question of early pneumonia and the right basilar region. She was initially started on ceftriaxone and azithromycin but developed a rash both were discontinued and was started on Azactam and Vibramycin Infectious disease was consulted. Urine cultures also positive for E. coli. Most recent chest x-ray showed chronic parenchymal changes and cardiomegaly without acute pulmonary process. She is seen today in consultation on the selective care unit. She is currently awake and alert in no acute distress. She is maintaining O2 saturations in the mid 90s on room air. She's been afebrile. Creatinine 0.79. She is currently on prednisone. Antiplatelet with warfarin. The patient was seen today 09/27/2017 in follow-up on the selective care unit. She is currently awake and alert in no acute distress. She is sitting up at the bedside. She is maintaining good O2 saturations in the 90s on room air. White count 14.8. Hemoglobin 11.8. Creatinine 0.75. She remains on aztreonam and Vibramycin. No pulmonary complaints today. Objective - Vital Signs Vital signs: Vital Signs Temp 97.9 F 09/27/18 07:00 Pulse 76 09/27/18 12:10 Resp 16 09/27/18 07:00 BP 167/78 09/27/18 07:00 Pulse Ox 96 09/27/18 08:26 Intake & Output 09/26/18 09/27/18 09/27/18 18:59 06:59 18:59 Weight 61.5 kg 61.5 kg Other: Voiding Method Toilet - Exam GENERAL EXAM: Alert, active, comfortable in no apparent distress. On room air. HEAD: Normocephalic. EYES: Normal reaction of pupils, equal size. NOSE: Clear with pink turbinates. THROAT: No erythema or exudates. NECK: No masses, no JVD. CHEST: No chest wall deformity. LUNGS: Equal air entry with us in the right posterior base CVS: S1 and S2 normal with no audible murmur, regular rhythm. ABDOMEN: No hepatosplenomegaly, normal bowel sounds, no guarding or rigidity. SPINE: No scoliosis or deformity SKIN: No rashes CENTRAL NERVOUS SYSTEM: No focal deficits, tone is normal in all 4 extremities. EXTREMITIES: There is no peripheral edema. No clubbing, no cyanosis. Peripheral pulses are intact. - Labs CBC & Chem 7: 09/27/18 07:11 09/27/18 07:11 Labs: Abnormal Lab Results - Last 24 Hours (Table) 09/26/18 09/26/18 09/27/18 Range/Units 16:57 19:51 07:02 WBC (3.8-10.6) k/uL BUN (7-17) mg/dL Glucose (74-99) mg/dL POC Glucose (mg/dL) 223 H 253 H 117 H (75-99) mg/dL 09/27/18 09/27/18 09/27/18 Range/Units 07:11 07:11 11:44 WBC 14.8 H (3.8-10.6) k/uL BUN 34 H (7-17) mg/dL Glucose 115 H (74-99) mg/dL POC Glucose (mg/dL) 204 H (75-99) mg/dL Microbiology - Last 24 Hours (Table) 09/20/18 23:12 Blood Culture - Final Blood No Growth after 144 hours Assessment and Plan Assessment: Impression: #1 Acute right lower lobe pneumonia, community-acquired with reactive bronchospasm. #2 Acute on chronic diastolic congestive heart failure. Preserved left ventricular systolic function. Status post AICD placement. #3 Moderate to severe pulmonary hypertension. #4 Interstitial lung disease of unclear etiology. #5 Valvular heart disease with previous bioprosthetic mitral valve. #6 urinary tract infection. #7 Paroxysmal atrial fibrillation anticoagulated with warfarin. #8 Diabetes mellitus. #9 Hypertension. #10 Hyperlipidemia. #11 Hudson's esophagus. #12 Hypothyroidism. Plan: The patient was seen and evaluated by Dr. Bearden. She is cleared for discharge from the pulmonary standpoint. She'll follow up with Dr. Basha in our office in 1-2 weeks' time. She and her daughter encouraged to call sooner with any recurrence of symptoms or other questions or concerns. I, the cosigning physician, performed a history & physical examination of the patient. Lungs sounds with crackles in the bilateral posterior bases. Maintaining good O2 saturations in the 90s on room air. I discussed the assessment and plan of care with my nurse practitioner, Judi Parada. I attest to the above note as dictated by her.
[2018-09-27 15:16] VITALS: BP 99/62; TEMP 97.7
--- NOTE | 2018-09-27 15:32 | PN ---
PROGRESS NOTE DATE OF SERVICE: 09/27/2018 REASON FOR FOLLOWUP: 1. E coli and drug infection. 2. Pneumonia/tracheobronchitis. INTERVAL HISTORY: The patient is currently afebrile. The patient is breathing more comfortably. He did have mild cough, not bringing up any sputum. No nausea, vomiting, or any diarrhea. PHYSICAL EXAMINATION: Blood pressure 137/78 with a pulse of 74, temperature 97.9, she is 91% on room air. General description is an elderly female, up in the bed in no distress. RESPIRATORY SYSTEM: Unlabored breathing. Bilateral coarse breath sounds. Mild wheeze. HEART: S1, S2. Regular rate and rhythm. ABDOMEN: Soft, no tenderness. LABS: Hemoglobin is 11.1 48.8. BUN of 34, creatinine 0.75. DIAGNOSTIC IMPRESSION AND PLAN: 1. Patient with an Escherichia coli urinary tract infection, adequately treated. Patient to have multiple antibiotic allergies. Currently on aztreonam that will be discontinued. 2. Patient with tracheobronchitis/pneumonia. Patient will be given a seven-day course of oral doxycycline in addition to the steroids and bronchodilator per Pulmonary. Continue supportive care. MMODL / IJN: [id number] /
[2018-09-27 15:35] VITALS: PULSE 74
[2018-09-27] MEDS ORDERED: WARFARIN 5 MG TAB PO ONE (18:00)
--- NOTE | 2018-09-27 23:01 | DS ---
DISCHARGE SUMMARY DATE OF SERVICE: 09/27/2018. FINAL DIAGNOSES: 1. Acute right lower lobe pneumonia possibly gram-negative with acute reactive bronchospasm. 2. Congestive heart failure acute exacerbation acute on chronic diastolic dysfunction, ejection fraction 50-55 percent. 3. 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 4. Moderate to severe pulmonary hypertension. 5. Acute urinary tract infection present on admission. 6. History atrial fibrillation, chronic intermittent. 7. History of congestive heart failure. 8. Diabetes type 2. 9. Gastroesophageal reflux disease. 10.Hypertension. 11.Hyperlipidemia. 12.History of degenerative joint disease. 13.History of pneumonia. 14.Sleep apnea. 15.History of hypothyroidism. 16.History of Hudson's esophagitis. 17.History AICD. 18.History of cholecystectomy. 19.Borderline diabetes type 2. 20.History of mitral disease. 21.History of pacemaker implantation. 22.History of incarcerated hernia. 23.FULL CODE. DISCHARGE DISPOSITION: The patient is being discharged in stable condition with guarded prognosis. HISTORY OF PRESENT ILLNESS: This 83-year-old woman with a past medical history of multiple medical problems was admitted with acute right lower lobe pneumonia which was possibly gram-negative. Patient also had congestive heart failure exacerbation, multiple medical issues as listed. Patient treated with bronchodilators, antibiotics, diuretics also given by Cardiology current. On exam, vital signs stable. Cardiovascular S1, S2 muffled. Respiration: Few scattered rhonchi and crackles. Abdomen soft. Central nervous system: No focal deficits. LABORATORY DATA: Labs have stabilized, WBC 14.2, creatinine at 0.75, BUN is 34. The patient being discharged in stable condition with guarded prognosis. Total time taken 35 minutes. DISCHARGE ADVICE AND RECOMMENDATIONS: 1. Discharge diet is cardiac diet. 2. Activity limited until followup. 3. Follow up with Dr. Rashawn George in 1-2 days. 4. Follow up with CBC BMP in the outpatient setting. MEDICATIONS: 1. Aspirin 81 mg p.o. daily. 2. Colace 100 mg p.o. daily. 3. Coumadin 3 mg q.h.s. 4. Iron sulfate 320 mg p.o. q.6 hours. 5. Lopressor 25 mg p.o. b.i.d. 6. Mevacor 8 mg p.o. daily. 7. Neurontin 100 mg p.o. t.i.d. 8. Nexium 20 mg p.o. b.i.d. 9. Synthroid 25 mcg p.o. daily. 10.Aldactone 25 mg p.o. daily. 11.Cozaar 50 mg p.o. daily. 12.DuoNeb q.i.d. 13.Lasix 40 mg p.o. b.i.d. 14.[place] 5 mg p.o. t.i.d. p.r.n. 15.Prednisone 40 mg daily for 3 days, 30 for 3 days 20 for 3 days, 10 for 3 days. 16.Senokot 8.6 p.o. daily p.r.n. 17.Doxycycline 100 mg p.o. b.i.d. for 4 days. Follow up with Cardiology and pulmonology as recommended. Once again, the patient is being discharged in stable condition with guarded prognosis. MMODL / IJN: [id number] /
--- NOTE | 2018-09-28 11:22 | CDI ---
Documentation Clarification Form Date: 09/28/2018 10:11:00 AM From: Seble Whitfield Beena Mac, Game Tester Hours-8:30 am & 5 pm Jagr[place] Admit Date: 09/21/2018 12:23:00 AM Patient Name: Julisa Peres Visit Number: [id number] Discharge Date: 09/27/2018 4:27:00 PM ATTENTION: The Clinical Documentation Specialists (CDI) and [facility] Coding Staff appreciate your assistance in clarifying documentation. Please respond to the clarification below the line at the bottom and electronically sign. The CDI & [facility] Coding staff will review the response and follow-up if needed. Please note: Queries are made part of the Legal Health Record. If you have any questions, please contact the author of this message via ITS. Dr. Raiza Hernandez Sepsis is documented in ID consult. History/Risk Factors: PNA, UTI WBC: 12.5, 15.8, 15.9 Lactic acid: 1.5 Blood cultures: No growth Vitals signs on admission: T 100 , BP 146.61, KS 108, RR 20 Treatment: IV/ PO Antibiotics ID Consult:Hardik Antibiotics: Rocephin/ Zithromax In your professional opinion, please clarify if these findings signify one of the following conditions, if known: Condition Sepsis ruled out Sepsis ruled in Other, please specify Unable to determine Unable to determine MTDD
[2018-10-04 08:56] LABS: Glucose,Whole Blood 235 mg/dL (75-99)
== END 2018-09-27 16:27 | disposition home or self-care (01) | DRG 177 ==
LOC: EC 22:32 → 4SSUR 09-21 00:23
PROVIDERS: ADMIT Hospitalist; ATTEND Hospitalist
DX: J15.6 Pneumonia due to other Gram-negative bacteria (principal); I50.33 Acute on chronic diastolic (congestive) heart failure; I48.1 Persistent atrial fibrillation; T82.857A Stenosis of other cardiac prosthetic devices, implants and grafts, initial encounter; N39.0 Urinary tract infection, site not specified; I11.0 Hypertensive heart disease with heart failure; E86.0 Dehydration; I27.20 Pulmonary hypertension, unspecified; J84.10 Pulmonary fibrosis, unspecified; I25.5 Ischemic cardiomyopathy; I08.3 Combined rheumatic disorders of mitral, aortic and tricuspid valves; E11.9 Type 2 diabetes mellitus without complications; K21.9 Gastro-esophageal reflux disease without esophagitis; G47.33 Obstructive sleep apnea (adult) (pediatric); E78.5 Hyperlipidemia, unspecified; M19.90 Unspecified osteoarthritis, unspecified site; I25.10 Atherosclerotic heart disease of native coronary artery without angina pectoris; E03.9 Hypothyroidism, unspecified; R25.1 Tremor, unspecified; K22.70 Barrett's esophagus without dysplasia; R21 Rash and other nonspecific skin eruption; T36.8X5A Adverse effect of other systemic antibiotics, initial encounter; J98.01 Acute bronchospasm; B96.20 Unspecified Escherichia coli [E. coli] as the cause of diseases classified elsewhere; J40 Bronchitis, not specified as acute or chronic; Z71.3 Dietary counseling and surveillance; Z68.21 Body mass index [BMI] 21.0-21.9, adult; Z79.899 Other long term (current) drug therapy; Z79.890 Hormone replacement therapy; Z90.49 Acquired absence of other specified parts of digestive tract; Z95.810 Presence of automatic (implantable) cardiac defibrillator; Z87.01 Personal history of pneumonia (recurrent); Z79.82 Long term (current) use of aspirin; Z79.01 Long term (current) use of anticoagulants; Z79.52 Long term (current) use of systemic steroids; Z88.1 Allergy status to other antibiotic agents; Z95.3 Presence of xenogenic heart valve; Z88.0 Allergy status to penicillin; Z88.2 Allergy status to sulfonamides; Z88.8 Allergy status to other drugs, medicaments and biological substances; Z98.42 Cataract extraction status, left eye; Z98.41 Cataract extraction status, right eye; Z82.49 Family history of ischemic heart disease and other diseases of the circulatory system; Z82.61 Family history of arthritis
CPT/HCPCS: 36415; 70450; 71046; 80048; 80053; 81001; 83036; 83605; 83735; 83880; 84100; 84484; 85025; 85027; 85610; 85730; 87040; 87070; 87077; 87086; 87186; 87205; 87502; 93005; 93306; 94640; 94760; 96361; 96365; 96375; 99285

== ENCOUNTER 2019-04-13 22:59 | Emergency (ER) | payer MEDICARE ==
[2019-04-13] MEDS ORDERED: MORPHINE SULFATE 4 MG/ML SYRINGE IV STA (23:48)
--- NOTE | 2019-04-13 23:52 | XR ---
EXAMINATION TYPE: XR pelvis AP view DATE OF EXAM: 04/13/2019 COMPARISON: NONE HISTORY: Fall. Pain. TECHNIQUE: Single view FINDINGS: A vague ring is intact. Proximal femurs are intact. There is vascular calcification. Sacroi liac joints appear intact. There is no evidence of a fracture. IMPRESSION: No acute abnormality of the pelvis.
--- NOTE | 2019-04-13 23:53 | XR ---
EXAMINATION TYPE: XR chest 1V portable DATE OF EXAM: 04/13/2019 COMPARISON: 09/25/2018 HISTORY: Fall. Chest pain. TECHNIQUE: Single frontal view of the chest is obtained. FINDINGS: Heart is enlarged. There is mild pulmonary vascular congestion. There are sternal wires. T here is valve prosthesis. There is left axillary pacemaker. Costophrenic angles are clear. IMPRESSION: There is evidence for mild acute congestive heart failure that is a change compared to l ast exam.
[2019-04-14] MEDS ORDERED: ONDANSETRON 4 MG/2 ML VIAL IVP STA (00:10)
--- NOTE | 2019-04-14 00:27 | ED ---
Fall HPI - General Chief Complaint: Fall Stated Complaint: Fall,Side Pain, Difficulty Breathing Time Seen by Provider: 04/13/19 23:25 Source: patient Mode of arrival: ambulatory - History of Present Illness Initial Comments: This patient is an 83-year-old woman who presents to be evaluated for right thoracic back pain that radiates around ribs. She states that this came on when she had a fall. She states that she was on the steps and fell forward hitting her knees on steps and then went backward and struck her back. No loss consciousness. No neck pain. No nausea or vomiting. 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, by family Place Fall Occurred: home Loss of Consciousness: none Prolonged Down Time?: no Symptoms Prior to Fall: none Location: chest Severity: severe Quality: sharp Context: tripped/slipped - Related Data Home Medications Medication Instructions Recorded Confirmed Gabapentin [Neurontin] 100 mg PO TID 10/08/14 04/13/19 Levothyroxine Sodium [Synthroid] 25 mcg PO DAILY 06/23/16 04/13/19 Ferrous Sulfate [Iron (65 MG 325 mg PO Q72H 06/03/17 04/13/19 Elemental)] Lovastatin [Mevacor] 20 mg PO DAILY 06/03/17 04/13/19 Aspirin 81 mg PO DAILY 06/06/17 04/13/19 Esomeprazole Magnesium [NexIUM] 20 mg PO BID 06/06/17 04/13/19 Docusate [Colace] 100 mg PO DAILY 09/20/18 04/13/19 Metoprolol Tartrate [Lopressor] 25 mg PO BID 09/20/18 04/13/19 Warfarin Sodium [Coumadin] 3 mg PO HS 09/20/18 04/13/19 Albuterol Inhaler [Ventolin Hfa 1 - 2 puff INHALATION RT-Q6H PRN 04/13/19 04/13/19 Inhaler] Torsemide [Demadex] 10 mg PO DAILY 04/13/19 04/13/19 Previous Rx's Medication Instructions Recorded HYDROcodone/APAP 5-325MG [Goodman 1 tab PO TID PRN #15 tab 06/09/17 5-325] Sennosides [Senokot] 8.6 mg PO DAILY PRN #30 tab 06/09/17 Losartan [Cozaar] 50 mg PO DAILY #30 tab 09/27/18 Azithromycin [Zithromax Z-pack] 250 mg PO DIRECTED #6 tab 04/14/19 Allergies Allergy/AdvReac Type Severity Reaction Status Date / Time amoxicillin trihydrate Allergy Swelling Verified 04/13/19 23:46 [From Augmentin] ciprofloxacin [From Cipro] Allergy Swelling Verified 04/13/19 23:46 ciprofloxacin HCl Allergy Swelling Verified 04/13/19 23:46 [From Cipro] potassium clavulanate Allergy Swelling Verified 04/13/19 23:46 [From Augmentin] Sulfa (Sulfonamide Allergy Rash/Hives Verified 04/13/19 23:46 Antibiotics) Review of Systems ROS Statement: Those systems with pertinent positive or pertinent negative responses have been documented in the HPI. ROS Other: All systems not noted in ROS Statement are negative. Constitutional: Denies: fever, chills, weakness Respiratory: Denies: cough, dyspnea, hemoptysis Cardiovascular: Denies: chest pain, palpitations, syncope Gastrointestinal: Denies: abdominal pain, nausea, vomiting Genitourinary: Denies: dysuria, hematuria Musculoskeletal: Reports: as per HPI, back pain Skin: Denies: rash Neurological: Denies: headache, weakness, numbness Hematological/Lymphatic: Reports: easy bleeding (Coumadin) Past Medical History Past Medical History: Atrial Fibrillation, Heart Failure, Diabetes Mellitus, GERD/Reflux, Hyperlipidemia, Hypertension, Osteoarthritis (OA), Pneumonia, Sleep Apnea/CPAP/BIPAP, Thyroid Disorder Additional Past Medical History / Comment(s): herr's esophagus. Patient reports that she is "borderline diabetic" but does not consider herself diabetic and does not take medication for this. Patient reports that she is up to date on her flu and pneumonia vaccines, but is unable to verify the exact date. 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/16, incarcerated hernia in bowel Past Anesthesia/Blood Transfusion Reactions: No Reported Reaction Type of Cardiac Device: Permanent Pacemaker Device Placement Date:: 2011 Past Psychological History: No Psychological Hx Reported Smoking Status: Never smoker Past Alcohol Use History: None Reported Past Drug Use History: None Reported - Past Family History Father Family Medical History: Myocardial Infarction ([place]) Mother Family Medical History: Osteoarthritis (OA) General Exam Limitations: no limitations General appearance: alert, in no apparent distress Head exam: Present: atraumatic, normocephalic Eye exam: Present: normal appearance, PERRL, EOMI. Absent: scleral icterus, conjunctival injection ENT exam: Present: normal oropharynx, mucous membranes moist Neck exam: Present: normal inspection, full ROM. Absent: tenderness Respiratory exam: Present: normal lung sounds bilaterally, chest wall tenderness (Rate posterior rib). Absent: respiratory distress, wheezes, rales, rhonchi, stridor Cardiovascular Exam: Present: regular rate, normal rhythm, normal heart sounds. Absent: systolic murmur, diastolic murmur, rubs, gallop GI/Abdominal exam: Present: soft. Absent: distended, tenderness, guarding, rebound, rigid, mass Extremities exam: Present: normal inspection, normal capillary refill. Absent: pedal edema, calf tenderness Back exam: Present: normal inspection. Absent: CVA tenderness (R), CVA tenderness (L) Neurological exam: Present: alert, oriented X3. Absent: motor sensory deficit Skin exam: Present: warm, dry, intact, normal color. Absent: rash Course Vital Signs 04/13/19 04/14/19 23:13 03:08 Temperature 100.7 F H 98.3 F Pulse Rate 70 73 Respiratory 20 18 Rate Blood Pressure 104/53 120/68 O2 Sat by Pulse 91 L 94 L Oximetry Medical Decision Making - Medical Decision Making Patient is an 83-year-old woman with right posterior rib fracture following a low level fall. Discussed the findings, and the patient's feeling better and would like to go home. Provided with incentive spirometer. Discussed appropriate further care and follow-up as well as return parameters. - Lab Data Result diagrams: 04/14/19 00:11 04/14/19 00:11 Lab Results 04/14/19 04/14/19 04/14/19 Range/Units 00:11 00:11 00:11 WBC 12.3 H (3.8-10.6) k/uL RBC 4.04 (3.80-5.40) m/uL Hgb 11.5 (11.4-16.0) gm/dL Hct 37.9 (34.0-46.0) % MCV 93.9 (80.0-100.0) fL MCH 28.6 (25.0-35.0) pg MCHC 30.4 L (31.0-37.0) g/dL RDW 13.8 (11.5-15.5) % Plt Count 189 (150-450) k/uL Neutrophils % 86 % Lymphocytes % 4 % Monocytes % 5 % Eosinophils % 3 % Basophils % 1 % Neutrophils # 10.6 H (1.3-7.7) k/uL Lymphocytes # 0.5 L (1.0-4.8) k/uL Monocytes # 0.6 (0-1.0) k/uL Eosinophils # 0.4 (0-0.7) k/uL Basophils # 0.1 (0-0.2) k/uL PT 20.3 H (9.0-12.0) sec INR 2.1 H (<1.2) APTT 27.3 (22.0-30.0) sec Sodium 141 (137-145) mmol/L Potassium 4.6 (3.5-5.1) mmol/L Chloride 106 (98-107) mmol/L Carbon Dioxide 26 (22-30) mmol/L Anion Gap 9 mmol/L BUN 29 H (7-17) mg/dL Creatinine 1.18 H (0.52-1.04) mg/dL Est GFR (CKD-EPI)AfAm 49 (>60 ml/min/1.73 sqM) Est GFR (CKD-EPI)NonAf 43 (>60 ml/min/1.73 sqM) Glucose 163 H (74-99) mg/dL Plasma Lactic Acid Joey (0.7-2.0) mmol/L Calcium 9.6 (8.4-10.2) mg/dL Total Bilirubin 0.5 (0.2-1.3) mg/dL AST 27 (14-36) U/L ALT 22 (9-52) U/L Alkaline Phosphatase 57 (38-126) U/L Total Creatine Kinase (30-135) U/L CK-MB (CK-2) (0.0-2.4) ng/mL CK-MB (CK-2) Rel Index Troponin I (0.000-0.034) ng/mL Total Protein 7.3 (6.3-8.2) g/dL Albumin 4.1 (3.5-5.0) g/dL Amylase 60 (30-110) U/L Lipase 26 (23-300) U/L Serum Alcohol <10 mg/dL Blood Type Blood Type Recheck Bld Type Recheck Status Antibody Screen Spec Expiration Date 04/14/19 04/14/19 04/14/19 Range/Units 00:11 00:11 00:11 WBC (3.8-10.6) k/uL RBC (3.80-5.40) m/uL Hgb (11.4-16.0) gm/dL Hct (34.0-46.0) % MCV (80.0-100.0) fL MCH (25.0-35.0) pg MCHC (31.0-37.0) g/dL RDW (11.5-15.5) % Plt Count (150-450) k/uL Neutrophils % % Lymphocytes % % Monocytes % % Eosinophils % % Basophils % % Neutrophils # (1.3-7.7) k/uL Lymphocytes # (1.0-4.8) k/uL Monocytes # (0-1.0) k/uL Eosinophils # (0-0.7) k/uL Basophils # (0-0.2) k/uL PT (9.0-12.0) sec INR (<1.2) APTT (22.0-30.0) sec Sodium (137-145) mmol/L Potassium (3.5-5.1) mmol/L Chloride (98-107) mmol/L Carbon Dioxide (22-30) mmol/L Anion Gap mmol/L BUN (7-17) mg/dL Creatinine (0.52-1.04) mg/dL Est GFR (CKD-EPI)AfAm (>60 ml/min/1.73 sqM) Est GFR (CKD-EPI)NonAf (>60 ml/min/1.73 sqM) Glucose (74-99) mg/dL Plasma Lactic Acid Joey 1.7 (0.7-2.0) mmol/L Calcium (8.4-10.2) mg/dL Total Bilirubin (0.2-1.3) mg/dL AST (14-36) U/L ALT (9-52) U/L Alkaline Phosphatase (38-126) U/L Total Creatine Kinase 84 (30-135) U/L CK-MB (CK-2) 1.1 (0.0-2.4) ng/mL CK-MB (CK-2) Rel Index 1.3 Troponin I <0.012 (0.000-0.034) ng/mL Total Protein (6.3-8.2) g/dL Albumin (3.5-5.0) g/dL Amylase (30-110) U/L Lipase (23-300) U/L Serum Alcohol mg/dL Blood Type A Positive Blood Type Recheck A Pos Bld Type Recheck Status No Antibody Screen NEGATIVE Spec Expiration Date 04/17/20192310 - EKG Data -: EKG Interpreted by Pr Rate: normal (Rate 70 bpm) Interpretation: other (Paced rhythm) Disposition Clinical Impression: Fall, Rib fracture Disposition: HOME SELF-CARE Condition: Good Instructions (If sedation given, give patient instructions): Rib Fracture (ED) Prescriptions: Azithromycin [Zithromax Z-pack] 250 mg PO DIRECTED #6 tab Is patient prescribed a controlled substance at d/c from ED?: No Referrals: Rashawn Farah MD [Primary Care Provider] - 1-2 days
[2019-04-14 00:34] LABS: Basophils # (A) 0.1 k/uL (0-0.2); Basophils % (A) 1 %; Eosinophils # (A) 0.4 k/uL (0-0.7); Eosinophils % (A) 3 %; HCT 37.9 % (34.0-46.0); HGB 11.5 gm/dL (11.4-16.0); Lymphocytes # (A) 0.5 k/uL (1.0-4.8); Lymphocytes % (A) 4 %; MCH 28.6 pg (25.0-35.0); MCHC 30.4 g/dL (31.0-37.0); MCV 93.9 fL (80.0-100.0); Mean Platelet Volume 7.2; Monocytes # (A) 0.6 k/uL (0-1.0); Monocytes % (A) 5 %; Neutrophils # (A) 10.6 k/uL (1.3-7.7); Neutrophils % (A) 86 %; Platelet Count 189 k/uL (150-450); RBC 4.04 m/uL (3.80-5.40); RDW 13.8 % (11.5-15.5); WBC 12.3 k/uL (3.8-10.6)
[2019-04-14 00:42] LABS: INR 2.1 (<1.2); Partial Thromboplastin Time 27.3 sec (22.0-30.0); Prothrombin Time 20.3 sec (9.0-12.0)
[2019-04-14 00:46] LABS: ALT 22 U/L (9-52); AST 27 U/L (14-36); African American GFR (CKD) 49 (>60 ml/min/1.73 sqM); Albumin 4.1 g/dL (3.5-5.0); Alcohol <10 mg/dL; Alkaline Phosphatase 57 U/L (38-126); Amylase 60 U/L (30-110); Anion Gap 9 mmol/L; Blood Urea Nitrogen 29 mg/dL (7-17); Calcium 9.6 mg/dL (8.4-10.2); Carbon Dioxide 26 mmol/L (22-30); Chloride 106 mmol/L (98-107); Glucose 163 mg/dL (74-99); Non-African American GFR(CKD) 43 (>60 ml/min/1.73 sqM); Potassium 4.6 mmol/L (3.5-5.1); Sodium 141 mmol/L (137-145); Total Bilirubin 0.5 mg/dL (0.2-1.3); Total Protein 7.3 g/dL (6.3-8.2)
[2019-04-14 01:06] LABS: Creatine Kinase 84 U/L (30-135)
[2019-04-14 01:17] LABS: Creatine Kinase MB 1.1 ng/mL (0.0-2.4)
[2019-04-14 01:19] LABS: Troponin I <0.012 ng/mL (0.000-0.034)
--- NOTE | 2019-04-14 01:24 | CT ---
EXAMINATION TYPE: CT abdomen pelvis w con DATE OF EXAM: 04/14/2019 COMPARISON: 06/03/2017 HISTORY: FALL CT DLP: 705.6 mGycm Automated exposure control for dose reduction was used. TECHNIQUE: Helical acquisition of images was performed from the lung bases through the pelvis. CONTRAST: Performed without Oral Contrast and with IV Contrast, patient injected with 80 mL of Isovue 300. FINDINGS: There is some coarsening of interstitial markings in the lower lobes. Heart is enlarged. There is no pericardial effusion. There is no pleural effusion. There are clips from cholecystectomy. There is mild dilated biliary tree. The common bile duct measur es 17 mm. I see no obstructing lesion. There is no evidence of pancreatic mass. There is some pancrea tic atrophy. Spleen is intact. Stomach has normal size and contour. There is no adrenal mass. Kidneys show satisfactory contrast opacification. There is no hydronephrosi s. There is 4 mm calculus interpolar right kidney. There is no hydronephrosis. Ureters are not dilate d. There is no evidence of a renal mass. There is no retroperitoneal adenopathy. Abdominal aorta is atheromatous. There are numerous diverticula in the sigmoid colon. Bladder distend s smoothly. There is retained fecal material in the large bowel. There is no free fluid in the pelvis . Uterus is retroverted. There are spondylotic changes in the lumbar spine. There is degenerative fir st-degree L4-5 spondylolisthesis. There is no compression fracture. There is moderate narrowing at L2 -3 and L4-5 and L5-S1 disc spaces. Bony pelvis is intact. Appendix appears normal. Appendix is lateral. Abdominal aorta shows moderate atheromatous change. The re is no mesenteric edema. There is no ascites or free air. There is no evidence of a bowel obstructi on. IMPRESSION: SIGMOID DIVERTICULOSIS WITHOUT DIVERTICULITIS. CONSTIPATION. CONSTIPATION INCREASED COMPARED TO OLD E XAM. CHRONIC DILATED BILIARY TREE. BILE DUCTS UNCHANGED COMPARED TO OLD EXAM. THERE IS CLEARING OF ABDOMINAL ASCITES AND PLEURAL EFFUSIONS COMPARED TO OLD EXAM. CARDIOMEGALY UNCHANGED.
--- NOTE | 2019-04-14 02:15 | CT ---
EXAMINATION TYPE: CT brain ju [place] souza DATE OF EXAM: 04/14/2019 COMPARISON: 09/20/2018 CT brain HISTORY: FALL CT DLP: 1282.9 mGycm Automated exposure control for dose reduction was used. TECHNIQUE: CT scan of the head and cervical spine are performed without contrast. FINDINGS: There is cerebral cortical atrophy. There is no mass effect nor midline shift. There is n o sign of intracranial hemorrhage. There is hypodensity in the periventricular white matter. The calv arium is intact. There is degenerative disc space narrowing throughout the cervical spine from C3 to C7 with spur form ation. There is no compression fracture. Facet joints are intact. The skull base is intact. IMPRESSION: Cerebral atrophy. Chronic small vessel ischemia. No change. Multilevel cervical spondylotic changes. No fracture seen. Pulmonary interstitial fibrotic changes.
[2019-04-14 03:10] VITALS: BP 120/68; PULSE 73; RESP 18; TEMP 98.3
== END 2019-04-14 03:10 | disposition home or self-care (01) ==
LOC: EC 22:59
DX: S22.31XA Fracture of one rib, right side, initial encounter for closed fracture (principal); I48.91 Unspecified atrial fibrillation; I11.0 Hypertensive heart disease with heart failure; I50.9 Heart failure, unspecified; E11.9 Type 2 diabetes mellitus without complications; E78.5 Hyperlipidemia, unspecified; G47.30 Sleep apnea, unspecified; E07.9 Disorder of thyroid, unspecified; K22.70 Barrett's esophagus without dysplasia; Z79.890 Hormone replacement therapy; Z79.82 Long term (current) use of aspirin; Z79.01 Long term (current) use of anticoagulants; Z79.899 Other long term (current) drug therapy; Z88.0 Allergy status to penicillin; Z88.1 Allergy status to other antibiotic agents; Z88.2 Allergy status to sulfonamides; Z95.0 Presence of cardiac pacemaker; W01.198A Fall on same level from slipping, tripping and stumbling with subsequent striking against other object, initial encounter
CPT/HCPCS: 36415; 93005; 86900; 86901; 80053; 82150; 82550; 82553; 83605; 83690; 84484; 85025; 85610; 85730; 86850; 72170; 71045; 72125; 70450; 74177; 99284; 96374; 96375; G0480; J2270; J2405; Q9967; 80320

== ENCOUNTER → 2019-06-26 | Outpatient (CLI) | payer MEDICARE ==
--- NOTE | 2019-06-26 12:47 | XR ---
EXAMINATION TYPE: XR chest 2V DATE OF EXAM: 06/26/2019 COMPARISON: Chest x-ray April 13, 2019. HISTORY: Congestion for 2 weeks. TECHNIQUE: Frontal and lateral views of the chest are obtained. FINDINGS: Overlying bra strap currently. There is cardiomegaly with multi lead pacemaker/AICD and at herosclerotic thoracic aorta. Metallic aortic valve redemonstrated. There is chronic parenchymal fortune ge without suspicious focal airspace opacity, pleural effusion, or pneumothorax seen bilaterally. Th e osseous structures are intact. IMPRESSION: Chronic changes and cardiomegaly without acute pulmonary process.
== END | disposition home or self-care (01) ==
LOC: RADXRMAIN 12:02
PROVIDERS: ATTEND Family Medicine
DX: I51.7 Cardiomegaly (principal)
CPT/HCPCS: 71046

== ENCOUNTER → 2019-06-26 | Outpatient (CLI) | payer MEDICARE | END | disposition home or self-care (01) | LOC: LABMAIN 12:36 | PROVIDERS: ATTEND Family Medicine | DX: Z53.9 Procedure and treatment not carried out, unspecified reason (principal) ==

== ENCOUNTER → 2019-06-26 | Outpatient (CLI) | payer MEDICARE ==
[2019-06-26 13:32] LABS: Basophils % (A) 0 %; Eosinophils # (A) 0.4 k/uL (0-0.7); Eosinophils % (A) 5 %; HCT 42.7 % (34.0-46.0); HGB 12.7 gm/dL (11.4-16.0); Hypochromasia Moderate; Lymphocytes # (A) 0.6 k/uL (1.0-4.8); Lymphocytes % (A) 8 %; MCH 28.5 pg (25.0-35.0); MCHC 29.8 g/dL (31.0-37.0); MCV 95.5 fL (80.0-100.0); Mean Platelet Volume 7.5; Monocytes # (A) 0.6 k/uL (0-1.0); Monocytes % (A) 8 %; Neutrophils # (A) 5.6 k/uL (1.3-7.7); Neutrophils % (A) 77 %; Platelet Count 178 k/uL (150-450); RBC 4.47 m/uL (3.80-5.40); RDW 13.4 % (11.5-15.5); WBC 7.3 k/uL (3.8-10.6)
[2019-06-26 13:38] LABS: ALT 13 U/L (4-34); AST 29 U/L (14-36); African American GFR (CKD) 46 (>60 ml/min/1.73 sqM); Albumin 4.3 g/dL (3.5-5.0); Albumin/Globulin Ratio 1.3; Alkaline Phosphatase 58 U/L (38-126); Anion Gap 11 mmol/L; Blood Urea Nitrogen 22 mg/dL (7-17); Calcium 8.8 mg/dL (8.4-10.2); Carbon Dioxide 24 mmol/L (22-30); Chloride 106 mmol/L (98-107); Globulin 3.2 g/dL; Glucose 119 mg/dL (74-99); Non-African American GFR(CKD) 40 (>60 ml/min/1.73 sqM); Potassium 3.9 mmol/L (3.5-5.1); Sodium 141 mmol/L (137-145); Total Bilirubin 0.6 mg/dL (0.2-1.3); Total Protein 7.5 g/dL (6.3-8.2)
== END | disposition home or self-care (01) ==
LOC: LABMAIN 12:41
PROVIDERS: ATTEND Family Medicine
DX: R06.09 Other forms of dyspnea (principal)
CPT/HCPCS: 36415; 80053; 83880; 85025

== ENCOUNTER 2019-12-07 21:41 | Observation (INO) | payer MEDICARE ==
[2019-12-07] MEDS ORDERED: SODIUM CHLORIDE 0.9% 500 ML 500 ML IV STA ×2 (22:34→23:25)
[2019-12-07] MEDS ORDERED: MORPHINE SULFATE 2 MG/ML SYRINGE IVP STA (22:34)
--- NOTE | 2019-12-07 22:37 | ED ---
Abdominal Pain HPI - General Chief Complaint: Abdominal Pain Stated Complaint: Abd pain Time Seen by Provider: 12/07/19 22:17 Source: patient Mode of arrival: ambulatory Limitations: no limitations - History of Present Illness Initial Comments: Patient is an 84-year-old female, with history of A. fib, pacemaker, diabetes, hypertension, presenting to the emergency Department with complaints of abdominal pain since yesterday. Patient's granddaughter is here with her and is helping with history. Granddaughter states the patient has a history of incar cerated bowels. Patient states her abdominal pain started increased last night and then throughout today. She does take pain medications for chronic back pain and states this is not helping her abdominal pain. Her last bowel movement was 2 days ago. It is normal for her to go every few days. She denies any recent fever, chills, nausea, vomiting, diarrhea. She denies any urinary complaints herr ch as dysuria. She denies any chest pain. She does have some mild shortness of breath which she states is normal for her. She has no further complaints at this time. Upon arrival to the ER, patient's pulse is slightly elevated at 102, rest of vitals are normal, afebrile. - Related Data Home Medications Medication Instructions Recorded Confirmed Gabapentin [Neurontin] 100 mg PO TID 10/08/14 04/13/19 Levothyroxine Sodium [Synthroid] 25 mcg PO DAILY 06/23/16 04/13/19 Ferrous Sulfate [Iron (65 MG 325 mg PO Q72H 06/03/17 04/13/19 Elemental)] Lovastatin [Mevacor] 20 mg PO DAILY 06/03/17 04/13/19 Aspirin 81 mg PO DAILY 06/06/17 04/13/19 Esomeprazole Magnesium [NexIUM] 20 mg PO BID 06/06/17 04/13/19 Docusate [Colace] 100 mg PO DAILY 09/20/18 04/13/19 Metoprolol Tartrate [Lopressor] 25 mg PO BID 09/20/18 04/13/19 Warfarin Sodium [Coumadin] 3 mg PO HS 09/20/18 04/13/19 Albuterol Inhaler (Mhu) [Ventolin 1 - 2 puff INHALATION RT-Q6H PRN 04/13/19 04/13/19 Hfa Inhaler] Torsemide [Demadex] 10 mg PO DAILY 04/13/19 04/13/19 Previous Rx's Medication Instructions Recorded HYDROcodone/APAP 5-325MG [[place] 1 tab PO TID PRN #15 tab 06/09/17 5-325] Sennosides [Senokot] 8.6 mg PO DAILY PRN #30 tab 06/09/17 Losartan [Cozaar] 50 mg PO DAILY #30 tab 09/27/18 Azithromycin [Zithromax Z-pack] 250 mg PO DIRECTED #6 tab 04/14/19 Allergies Allergy/AdvReac Type Severity Reaction Status Date / Time amoxicillin trihydrate Allergy Swelling Verified 12/07/19 21:48 [From Augmentin] ciprofloxacin [From Cipro] Allergy Swelling Verified 12/07/19 21:48 ciprofloxacin HCl Allergy Swelling Verified 12/07/19 21:48 [From Cipro] potassium clavulanate Allergy Swelling Verified 12/07/19 21:48 [From Augmentin] Sulfa (Sulfonamide Allergy Rash/Hives Verified 12/07/19 21:48 Antibiotics) Review of Systems ROS Statement: Those systems with pertinent positive or pertinent negative responses have been documented in the HPI. ROS Other: All systems not noted in ROS Statement are negative. Past Medical History Past Medical History: Atrial Fibrillation, Heart Failure, Diabetes Mellitus, GERD/Reflux, Hyperlipidemia, Hypertension, Osteoarthritis (OA), Pneumonia, Sleep Apnea/CPAP/BIPAP, Thyroid Disorder Additional Past Medical History / Comment(s): herr's esophagus. Patient reports that she is "borderline diabetic" but does not consider herself diabetic and does not take medication for this. Patient reports that she is up to date on her flu and pneumonia vaccines, but is unable to verify the exact date. 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/16, incarcerated hernia in bowel Past Anesthesia/Blood Transfusion Reactions: No Reported Reaction Type of Cardiac Device: Permanent Pacemaker Device Placement Date:: 2011 Past Psychological History: No Psychological Hx Reported Smoking Status: Never smoker Past Alcohol Use History: None Reported Past Drug Use History: None Reported - Past Family History Father Family Medical History: Myocardial Infarction ([place]) Mother Family Medical History: Osteoarthritis (OA) General Exam - General Exam Comments Initial Comments: GENERAL: Well-appearing, well-nourished and in no acute distress. HEAD: Atraumatic, normocephalic. EYES: Pupils equal round and reactive to light, extraocular movements intact, sclera anicteric, conjunctiva are normal. ENT: TMs normal, nares patent, oropharynx clear without exudates. Moist mucous membranes. NECK: Normal range of motion, supple without lymphadenopathy or JVD. LUNGS: Breath sounds clear to auscultation bilaterally and equal. No wheezes rales or rhonchi. HEART: Regular rate and rhythm without murmurs, rubs or gallops. ABDOMEN: Generalized abdominal tenderness, mild hardening noted in the umbilical region, positive guarding. Soft, normoactive bowel sounds. No guarding, no rebound. No masses appreciated. : Deferred EXTREMITIES: Normal range of motion, no pitting or edema. No clubbing or cyanosis. NEUROLOGICAL: Normal speech, normal gait. PSYCH: Normal mood, normal affect. SKIN: Warm, Dry, normal turgor, no rashes or lesions noted. Limitations: no limitations Course Vital Signs 12/07/19 12/07/19 21:44 22:48 Temperature 97.3 F L Pulse Rate 102 H 88 Respiratory 18 18 Rate Blood Pressure 126/86 132/70 O2 Sat by Pulse 98 98 Oximetry Medical Decision Making - Medical Decision Making Patient is a 84-year-old female presenting with generalized abdominal pain since yesterday. She does have a history of small bowel obstruction and incarcerated bowel. Her vital signs are stable upon arrival. Lab work does not reveal any acute abnormalities, kidney function is at baseline, lactic acid is 1.1. CT of the abdomen was obtained and shows some news mild small bowel mesenteric edema compared to her old exam. No signs of bowel extraction. She continues to have significant abdominal pain on palpation. She was given fluids, pain control. Patient will be admitted for intractable abdominal pain. Dr. Pierce is accepting. Patient is in agreement with this plan of care. Case discussed with Dr. Simmons. - Lab Data Result diagrams: 12/07/19 22:33 12/07/19 22:33 Lab Results 12/07/19 12/07/19 12/07/19 Range/Units 22:33 22:33 22:33 WBC 8.7 (3.8-10.6) k/uL RBC 4.31 (3.80-5.40) m/uL Hgb 12.5 (11.4-16.0) gm/dL Hct 39.1 (34.0-46.0) % MCV 90.7 (80.0-100.0) fL MCH 29.0 (25.0-35.0) pg MCHC 32.0 (31.0-37.0) g/dL RDW 14.1 (11.5-15.5) % Plt Count 210 (150-450) k/uL Neutrophils % 71 % Lymphocytes % 14 % Monocytes % 8 % Eosinophils % 5 % Basophils % 0 % Neutrophils # 6.2 (1.3-7.7) k/uL Lymphocytes # 1.2 (1.0-4.8) k/uL Monocytes # 0.7 (0-1.0) k/uL Eosinophils # 0.4 (0-0.7) k/uL Basophils # 0.0 (0-0.2) k/uL PT 23.9 H (9.0-12.0) sec INR 2.5 H (<1.2) APTT 36.0 H (22.0-30.0) sec Sodium 137 (137-145) mmol/L Potassium 5.0 (3.5-5.1) mmol/L Chloride 105 (98-107) mmol/L Carbon Dioxide 24 (22-30) mmol/L Anion Gap 8 mmol/L BUN 20 H (7-17) mg/dL Creatinine 1.09 H (0.52-1.04) mg/dL Est GFR (CKD-EPI)AfAm 54 (>60 ml/min/1.73 sqM) Est GFR (CKD-EPI)NonAf 47 (>60 ml/min/1.73 sqM) Glucose 143 H (74-99) mg/dL Plasma Lactic Acid Joey (0.7-2.0) mmol/L Calcium 9.1 (8.4-10.2) mg/dL Total Bilirubin 0.5 (0.2-1.3) mg/dL AST 30 (14-36) U/L ALT 14 (4-34) U/L Alkaline Phosphatase 55 (38-126) U/L Total Protein 7.3 (6.3-8.2) g/dL Albumin 4.1 (3.5-5.0) g/dL Amylase 53 (30-110) U/L Lipase 35 (23-300) U/L 12/07/19 Range/Units 22:33 WBC (3.8-10.6) k/uL RBC (3.80-5.40) m/uL Hgb (11.4-16.0) gm/dL Hct (34.0-46.0) % MCV (80.0-100.0) fL MCH (25.0-35.0) pg MCHC (31.0-37.0) g/dL RDW (11.5-15.5) % Plt Count (150-450) k/uL Neutrophils % % Lymphocytes % % Monocytes % % Eosinophils % % Basophils % % Neutrophils # (1.3-7.7) k/uL Lymphocytes # (1.0-4.8) k/uL Monocytes # (0-1.0) k/uL Eosinophils # (0-0.7) k/uL Basophils # (0-0.2) k/uL PT (9.0-12.0) sec INR (<1.2) APTT (22.0-30.0) sec Sodium (137-145) mmol/L Potassium (3.5-5.1) mmol/L Chloride (98-107) mmol/L Carbon Dioxide (22-30) mmol/L Anion Gap mmol/L BUN (7-17) mg/dL Creatinine (0.52-1.04) mg/dL Est GFR (CKD-EPI)AfAm (>60 ml/min/1.73 sqM) Est GFR (CKD-EPI)NonAf (>60 ml/min/1.73 sqM) Glucose (74-99) mg/dL Plasma Lactic Acid Joey 1.1 (0.7-2.0) mmol/L Calcium (8.4-10.2) mg/dL Total Bilirubin (0.2-1.3) mg/dL AST (14-36) U/L ALT (4-34) U/L Alkaline Phosphatase (38-126) U/L Total Protein (6.3-8.2) g/dL Albumin (3.5-5.0) g/dL Amylase (30-110) U/L Lipase (23-300) U/L Disposition Clinical Impression: Intractable abdominal pain Disposition: ADMITTED IP TO THIS [facility] Condition: Stable Is patient prescribed a controlled substance at d/c from ED?: No Referrals: Rashawn Farah MD [Primary Care Provider] - 1-2 days Decision Date: 12/08/19 Decision Time: 00:17
[2019-12-07 22:46] LABS: Basophils % (A) 0 %; Eosinophils # (A) 0.4 k/uL (0-0.7); Eosinophils % (A) 5 %; HCT 39.1 % (34.0-46.0); HGB 12.5 gm/dL (11.4-16.0); Lymphocytes # (A) 1.2 k/uL (1.0-4.8); Lymphocytes % (A) 14 %; MCV 90.7 fL (80.0-100.0); Mean Platelet Volume 7.4; Monocytes # (A) 0.7 k/uL (0-1.0); Monocytes % (A) 8 %; Neutrophils # (A) 6.2 k/uL (1.3-7.7); Neutrophils % (A) 71 %; Platelet Count 210 k/uL (150-450); RBC 4.31 m/uL (3.80-5.40); RDW 14.1 % (11.5-15.5); WBC 8.7 k/uL (3.8-10.6)
[2019-12-07 22:51] LABS: Albumin 4.1 g/dL (3.5-5.0); Calcium 9.1 mg/dL (8.4-10.2); Total Bilirubin 0.5 mg/dL (0.2-1.3); Total Protein 7.3 g/dL (6.3-8.2)
[2019-12-07 22:55] LABS: INR 2.5 (<1.2); Prothrombin Time 23.9 sec (9.0-12.0)
--- NOTE | 2019-12-07 23:36 | CT ---
EXAMINATION TYPE: CT abdomen pelvis w con DATE OF EXAM: 12/07/2019 COMPARISON: 04/14/2019 HISTORY: pain CT DLP: 647.2 mGycm Automated exposure control for dose reduction was used. CONTRAST: Performed with IV Contrast, patient injected with 80 mL of Isovue 300. There is some patchy atelectasis at the lung bases. Heart is enlarged. There is no pericardial effusi on. There is no pleural effusion. There are clips from cholecystectomy. Liver shows no focal defect. The intrahepatic bile ducts are no t dilated. There is large common bile duct that measures 1.5 cm. Spleen is intact. There is no eviden ce of pancreatic mass. Stomach is intact. There is no adrenal mass. Kidneys show satisfactory contrast opacification. There is no hydronephrosi s. Ureters are not dilated. There is 3 mm calculus medial right kidney. Delayed images show normal re nal excretion. There is no retroperitoneal adenopathy. Abdominal aorta is atheromatous. There is mini mal mesenteric fat stranding. Bladder distends smoothly. There are right-sided inguinal lymph nodes t hat measure up to 1.5 cm. Uterus is retroverted and probably has fundal fibroid. There is no ascites. There is no evidence of free air. I see no evidence of a bowel obstruction. Appendix not definitely seen. No sign of thickened appendix. There are surgical clips in the pelvis on the right side. There is disc space narrowing at L2-3 and L4-5. There is degenerative first-degree L4-5 spondylolisthesis. There is no compression fracture. Bony pelvis is intact. IMPRESSION: Previous intestinal surgery. There is some new mild small bowel mesenteric edema compared to old exam . Atherosclerotic vascular disease. Sigmoid diverticulosis without diverticulitis. No bowel obstructi on. Interstitial infiltrates and atelectasis at the lung bases with cardiomegaly. Unchanged.
[2019-12-08] MEDS ORDERED: NALOXONE 0.4 MG/ML 1 ML VIAL IV PRN (00:35)
[2019-12-08] MEDS ORDERED: ONDANSETRON 4 MG/2 ML VIAL IVP PRN (00:35)
[2019-12-08] MEDS ORDERED: traMADol 50 MG TAB PO PRN (00:35)
[2019-12-08] MEDS ORDERED: MORPHINE SULFATE 4 MG/ML SYRINGE IV PRN (00:35)
[2019-12-08] MEDS: SODIUM CHLORIDE 0.9% 1,000 ML IV SCH ×2 (01:13→17:29)
--- NOTE | 2019-12-08 02:42 | P.HPIM ---
History of Present Illness H&P Date: 12/08/19 The patient is an 84-year-old female with a PMH of chronic A. fib on Coumadin, mitral valve repair, hypertension, hyperlipidemia, type II DM, AMANDA, Herr's esophagus, pacemaker in place, history of strangulated hernia who presented to the ED with complaints of abdominal pain. The patient notes that she has been suffering with intermittent diffuse abdominal pain for the past 1 month, though it has recently been worsening over the past few days. She notes that the pain woke her up from sleep yesterday at 4 AM, and has persisted since then, rated at a 8 out of 10 in intensity, alleviated to 4 out of 10 with pain medication, diffuse, aching in nature, with no associated nausea, vomiting, diarrhea, bloody stools, or fever. At time of interview, she noted that her pain is a 3 out of 10 after receiving the pain medications in the emergency room. She notes that the pain does worsen with food. She otherwise denied any additional complaints including chest pain, shortness of breath, fever, chills, or cough. She underwent an extensive evaluation in the emergency room with CT abdomen and pelvis with contrast showing mild small bowel mesenteric edema with laboratory evaluation showing lactate 1.1, WAC count 8.7, hemoglobin 12.5, INR 2.5, sodium 137, potassium 5.0, BUN 20, creatinine 1.09, with glucose 143. The patient is being admitted to the medicine service for further management and GI evaluation. Review of Systems Pertinent positives and negatives as discussed in HPI, a complete review of systems was performed and all other systems are negative. Past Medical History Past Medical History: Atrial Fibrillation, Heart Failure, Diabetes Mellitus, GERD/Reflux, Hyperlipidemia, Hypertension, Osteoarthritis (OA), Pneumonia, Sleep Apnea/CPAP/BIPAP, Thyroid Disorder Additional Past Medical History / Comment(s): herr's esophagus. Patient reports that she is "borderline diabetic" but does not consider herself diabetic and does not take medication for this. Patient reports that she is up to date on her flu and pneumonia vaccines, but is unable to verify the exact date. 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/16, incarcerated hernia in bowel Past Anesthesia/Blood Transfusion Reactions: No Reported Reaction Type of Cardiac Device: Permanent Pacemaker Device Placement Date:: 2011 Past Psychological History: No Psychological Hx Reported Smoking Status: Never smoker Past Alcohol Use History: None Reported Past Drug Use History: None Reported - Past Family History Father Family Medical History: Myocardial Infarction ([place]) Mother Family Medical History: Osteoarthritis (OA) Medications and Allergies Home Medications Medication Instructions Recorded Confirmed Type Gabapentin [Neurontin] 100 mg PO TID 10/08/14 04/13/19 History Levothyroxine Sodium [Synthroid] 25 mcg PO DAILY 06/23/16 04/13/19 History Ferrous Sulfate [Iron (65 MG 325 mg PO Q72H 06/03/17 04/13/19 History Elemental)] Lovastatin [Mevacor] 20 mg PO DAILY 06/03/17 04/13/19 History Aspirin 81 mg PO DAILY 06/06/17 04/13/19 History Esomeprazole Magnesium [NexIUM] 20 mg PO BID 06/06/17 04/13/19 History HYDROcodone/APAP 5-325MG [[place] 1 tab PO TID PRN #15 tab 06/09/17 04/13/19 Rx 5-325] Sennosides [Senokot] 8.6 mg PO DAILY PRN #30 tab 06/09/17 04/13/19 Rx Docusate [Colace] 100 mg PO DAILY 09/20/18 04/13/19 History Metoprolol Tartrate [Lopressor] 25 mg PO BID 09/20/18 04/13/19 History Warfarin Sodium [Coumadin] 3 mg PO HS 09/20/18 04/13/19 History Losartan [Cozaar] 50 mg PO DAILY #30 tab 09/27/18 04/13/19 Rx Albuterol Inhaler (Mhu) [Ventolin 1 - 2 puff INHALATION RT-Q6H PRN 04/13/19 04/13/19 History Hfa Inhaler] Torsemide [Demadex] 10 mg PO DAILY 04/13/19 04/13/19 History Azithromycin [Zithromax Z-pack] 250 mg PO DIRECTED #6 tab 04/14/19 Rx Allergies Allergy/AdvReac Type Severity Reaction Status Date / Time amoxicillin trihydrate Allergy Swelling Verified 12/07/19 21:48 [From Augmentin] ciprofloxacin [From Cipro] Allergy Swelling Verified 12/07/19 21:48 ciprofloxacin HCl Allergy Swelling Verified 12/07/19 21:48 [From Cipro] potassium clavulanate Allergy Swelling Verified 12/07/19 21:48 [From Augmentin] Sulfa (Sulfonamide Allergy Rash/Hives Verified 12/07/19 21:48 Antibiotics) Physical Exam Vitals: Vital Signs Temp Pulse Resp BP Pulse Ox 12/08/19 01:34 97.7 F 93 16 123/76 97 12/08/19 01:00 70 18 128/83 95 12/08/19 00:00 70 18 127/80 95 12/07/19 22:48 88 18 132/70 98 12/07/19 21:44 97.3 F L 102 H 18 126/86 98 Intake and Output 12/07/19 12/07/19 12/08/19 14:59 22:59 06:59 Other: Weight 62.596 kg General: non toxic, no distress, appears at stated age, normal weight Derm: no unusual rashes/lesions no unusual ecchymoses, warm, dry Head: atraumatic, normocephalic, symmetric Eyes: EOMI, no lid lag, anicteric sclera, pupils equal round reactive to light ENT: Nose and ears atraumatic, no thrush, no pharyngeal erythema Neck: No thyromegaly, no cervical lymphadenopathy, trachea midline, supple Mouth: no lip lesion, mucus membranes moist Cardiovascular: S1S2 reg, no murmur, positive posterior tibial pulse bilateral, no edema, capillary refill less than 2 seconds Lungs: CTA bilateral, no rhonchi, no rales , no accessory muscle use Abdominal: soft, mild diffuse tenderness to palpation, no guarding, no appreciable organomegaly, normal bowel sounds Ext: no gross muscle atrophy, muscle strength 5 out of 5 in all 4 extremities grossly, no contractures, Neuro: CN II-XI grossly intact, light touch intact all 4 extremities, finger to nose within normal limits, Psych: Alert, oriented, appropriate affect Results CBC & Chem 7: 12/07/19 22:33 12/07/19 22:33 Labs: Abnormal Lab Results - Last 24 Hours (Table) 12/07/19 12/07/19 Range/Units 22:33 22:33 PT 23.9 H (9.0-12.0) sec INR 2.5 H (<1.2) APTT 36.0 H (22.0-30.0) sec BUN 20 H (7-17) mg/dL Creatinine 1.09 H (0.52-1.04) mg/dL Glucose 143 H (74-99) mg/dL Assessment and Plan Plan: Abdominal pain with mesenteric edema on CT scan, suspicious for mesenteric ischemia -Nothing by mouth for now -Consult GI -Continue with gentle hydration -Pain control Acute kidney injury -Monitor BMP -Continue with IV fluids Chronic conditions: A. fib, hypertension, hyperlipidemia, hyperlipidemia -Continue with home meds DVT prophylaxis -Coumadin The patient is admitted with an anticipated less than 2 midnight stay for evaluation of abdominal pain CODE STATUS: Full Code Discussed with: Patient Anticipated discharge date: 1-[address]: Home A total of 35 minutes was spent on the care of this complex patient more than 50% of the time was spent in counseling and care coordination.
[2019-12-08 04:44] LABS: Appearance,Urine Clear (Clear); Bilirubin,Urine Negative (Negative); Blood,Urine Negative (Negative); Color,Urine Yellow; Glucose,Urine (UA) Negative (Negative); Hyaline Casts,Urine 12 /lpf (0-2); Ketones,Urine Negative (Negative); Leukocyte Esterase,Urine Small (Negative); Mucus,Urine Rare /hpf; Nitrite,Urine Negative (Negative); PH, Urine 6.5 (5.0-8.0); Protein,Urine Negative (Negative); RBC,Urine 1 /hpf (0-5); Specific Gravity,Urine 1.038 (1.001-1.035); Squamous Epithelial Cell,Urine 4 /hpf (0-4); Urobilinogen,Urine <2.0 mg/dL (<2.0); WBC,Urine 1 /hpf (0-5)
[2019-12-08 06:30] LABS: Glucose,Whole Blood 104 mg/dL (75-99)
[2019-12-08 07:21] LABS: Glucose,Whole Blood 108 mg/dL (75-99)
[2019-12-08 11:32] LABS: Glucose,Whole Blood 101 mg/dL (75-99)
--- NOTE | 2019-12-08 14:37 | P.GSCN ---
History of Present Illness Consult date: 12/08/19 History of present illness: CHIEF COMPLAINT: Abdominal pain HISTORY OF PRESENT ILLNESS: The patient is a 84-year-old female admitted to the hospital last night after developing abdominal pain. She is brought in by her granddaughter per records. Patient has history of multiple abdominal wall surgeries. Secondary to the severity of her abdominal pain, patient was admitted. She reports that her bowel movements are once a week, "this is good for me." She also has epigastric abdominal pain. She is craving for coffee as she has a headache. Last bowel movement was 4 days ago no blood. Last colonoscopy 2 years ago. She denies family or personal history of colon cancer. PAST MEDICAL HISTORY: See list and reviewed PAST SURGICAL HISTORY: See list and reviewed MEDICATIONS: See list and reviewed ALLERGIES: See list and reviewed SOCIAL HISTORY: See list and reviewed FAMILY HISTORY: See list and reviewed REVIEW OF ORGAN SYSTEMS: CONSTITUTIONAL: No fevers or chills. EYES: Denies any trouble with vision. HEENT: No difficulties with hearing. No nosebleeds. No difficulty swallowing. RESPIRATORY: Has occasional distant exertion. Has asthma. Has sleep apnea CARDIOVASCULAR: Has hypertension including cardiomyopathy. History of heart failure. Has atrial fibrillation. Has pacemaker GASTROINTESTINAL: Chronic constipation. His iron deficiency anemia. Has gastroesophageal reflux disease GENITOURINARY: Denies any blood in urine or increased urinary frequency. NEUROLOGICAL: Denies any numbness or tingling along the distal extremities. No seizure disorders or headaches. MUSCULOSKELETAL: Has back pain, stiffness or joint arthritis. SKIN: No current skin cancer. No rash. PSYCHIATRIC: Denies current depression or suicidal thoughts. ENDOCRINE: Has thyroid disorders. Has blood sugar glucose intolerance. HEME/LYMPHATIC: Denies any lumps and bumps around the neck. No recent deep venous thrombosis. On chronic anticoagulant Coumadin ALLERGY/IMMUNOLOGY: No immunoglobulin therapy. No immune deficiencies. BREAST: Denies current breast lumps, pain or nipple discharge. PHYSICAL EXAM: VITALS: Reviewed CONSTITUTIONAL: Well developed and in no acute distress. EYES: Conjuctivae without sclera icterus. Pupils are equally round and reactive to light. Extraocular movements grossly intact. HEAD, EARS, NOSE, THROAT: Moist buccal mucosa. Head is atraumatic, normocephalic. Hears conversational speech. No nasal drainage. NECK: Supple. No JV distention. No thyroidomegaly. RESPIRATORY: Non-labored respirations and equal bilateral excursions. No gross wheezes. CARDIOVASCULAR: Irregularly irregular rhythm. Extremities without moderate edema. Palpable 2+ radial pulses. ABDOMEN: Soft. Non-tender. Nondistended. LYMPH: No neck lymphadenopathy. No axillary lymphadenopathy. MUSCULOSKELETAL: Gait within normal limits. Range of motion bilateral upper extremities within normal limits. Nail and fingers with good capillary refill. SKIN: Warm and well perfused with good skin turgor. NEUROLOGIC: Cranial nerves II through XII grossly intact. Sensation upper and extremities intact. No focal or lateralizing signs. PSYCH: Appropriate affect. Alert and oriented to person, place and time. Displays appropriate insight. CLINCAL LABS: Reviewed. INR 2.5. White blood cell count normal 8.5. Creatinine 1.09 elevated IMAGING: Independently reviewed CT of the abdomen and pelvis demonstrating diffuse stool burden throughout the entire colon. No evidence of free air. No moderate dilation of the small bowel findings small bowel obstruction. No active ventral hernias identified. Large right inguinal lymph node. It is my personal interpretation. RADIOLOGY: Report reviewed. CT of the abdomen and pelvis report reviewed. Large common bile duct 1.5 cm. Right 3 mm kidney stone. Also confirms no small bowel obstruction ASSESSMENT: 1. Abdominal pain 2. Chronic constipation 3. History of bowel resection PLAN: 1. Patient is on chronic pain meds and is risk for chronic constipation. Recommend bowel regimen. 2. Patient has multiple cardiac risk factors. Recommend conservative management 3. Recommend liquid diet in the interim until bowel function Thank you for this kind consultation. Past Medical History Past Medical History: Atrial Fibrillation, Heart Failure, Diabetes Mellitus, GERD/Reflux, Hyperlipidemia, Hypertension, Osteoarthritis (OA), Pneumonia, Sleep Apnea/CPAP/BIPAP, Thyroid Disorder Additional Past Medical History / Comment(s): herr's esophagus. Patient reports that she is "borderline diabetic" but does not consider herself diabetic and does not take medication for this. Patient reports that she is up to date on her flu and pneumonia vaccines, but is unable to verify the exact date. 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/16, incarcerated hernia in bowel Past Anesthesia/Blood Transfusion Reactions: No Reported Reaction Type of Cardiac Device: Permanent Pacemaker Device Placement Date:: 2011 Past Psychological History: No Psychological Hx Reported Smoking Status: Never smoker Past Alcohol Use History: None Reported Past Drug Use History: None Reported - Past Family History Father Family Medical History: Myocardial Infarction (CT) Mother Family Medical History: Osteoarthritis (OA) Medications and Allergies Home Medications Medication Instructions Recorded Confirmed Type Gabapentin [Neurontin] 100 mg PO TID 10/08/14 04/13/19 History Levothyroxine Sodium [Synthroid] 25 mcg PO DAILY 06/23/16 04/13/19 History Ferrous Sulfate [Iron (65 MG 325 mg PO Q72H 06/03/17 04/13/19 History Elemental)] Lovastatin [Mevacor] 20 mg PO DAILY 06/03/17 04/13/19 History Aspirin 81 mg PO DAILY 06/06/17 04/13/19 History Esomeprazole Magnesium [NexIUM] 20 mg PO BID 06/06/17 04/13/19 History HYDROcodone/APAP 5-325MG [[place] 1 tab PO TID PRN #15 tab 06/09/17 04/13/19 Rx 5-325] Sennosides [Senokot] 8.6 mg PO DAILY PRN #30 tab 06/09/17 04/13/19 Rx Docusate [Colace] 100 mg PO DAILY 09/20/18 04/13/19 History Metoprolol Tartrate [Lopressor] 25 mg PO BID 09/20/18 04/13/19 History Warfarin Sodium [Coumadin] 3 mg PO HS 09/20/18 04/13/19 History Losartan [Cozaar] 50 mg PO DAILY #30 tab 09/27/18 04/13/19 Rx Albuterol Inhaler (Mhu) [Ventolin 1 - 2 puff INHALATION RT-Q6H PRN 04/13/19 04/13/19 History Hfa Inhaler] Torsemide [Demadex] 10 mg PO DAILY 04/13/19 04/13/19 History Azithromycin [Zithromax Z-pack] 250 mg PO DIRECTED #6 tab 04/14/19 Rx Allergies Allergy/AdvReac Type Severity Reaction Status Date / Time amoxicillin trihydrate Allergy Swelling Verified 12/07/19 21:48 [From Augmentin] ciprofloxacin [From Cipro] Allergy Swelling Verified 12/07/19 21:48 ciprofloxacin HCl Allergy Swelling Verified 12/07/19 21:48 [From Cipro] potassium clavulanate Allergy Swelling Verified 12/07/19 21:48 [From Augmentin] Sulfa (Sulfonamide Allergy Rash/Hives Verified 12/07/19 21:48 Antibiotics) Surgical - Exam Vital Signs Temp Pulse Resp BP Pulse Ox 97.3 F L 102 H 18 126/86 98 12/07/19 21:44 12/07/19 21:44 12/07/19 21:44 12/07/19 21:44 12/07/19 21:44 Results - Labs 12/07/19 22:33 12/07/19 22:33 Abnormal Lab Results - Last 24 Hours (Table) 12/07/19 12/07/19 12/08/19 Range/Units 22:33 22:33 03:37 PT 23.9 H (9.0-12.0) sec INR 2.5 H (<1.2) APTT 36.0 H (22.0-30.0) sec BUN 20 H (7-17) mg/dL Creatinine 1.09 H (0.52-1.04) mg/dL Glucose 143 H (74-99) mg/dL POC Glucose (mg/dL) (75-99) mg/dL Ur Specific [place] 1.038 H (1.001-1.035) Ur Leukocyte Esterase Small H (Negative) Hyaline Casts 12 H (0-2) /lpf Urine Mucus Rare H (None) /hpf 12/08/19 12/08/19 12/08/19 Range/Units 06:28 07:19 11:31 PT (9.0-12.0) sec INR (<1.2) APTT (22.0-30.0) sec BUN (7-17) mg/dL Creatinine (0.52-1.04) mg/dL Glucose (74-99) mg/dL POC Glucose (mg/dL) 104 H 108 H 101 H (75-99) mg/dL Ur Specific [place] (1.001-1.035) Ur Leukocyte Esterase (Negative) Hyaline Casts (0-2) /lpf Urine Mucus (None) /hpf Diabetes panel 12/07/19 Range/Units 22:33 Sodium 137 (137-145) mmol/L Potassium 5.0 (3.5-5.1) mmol/L Chloride 105 (98-107) mmol/L Carbon Dioxide 24 (22-30) mmol/L BUN 20 H (7-17) mg/dL Creatinine 1.09 H (0.52-1.04) mg/dL Glucose 143 H (74-99) mg/dL Calcium 9.1 (8.4-10.2) mg/dL AST 30 (14-36) U/L ALT 14 (4-34) U/L Alkaline Phosphatase 55 (38-126) U/L Total Protein 7.3 (6.3-8.2) g/dL Albumin 4.1 (3.5-5.0) g/dL Calcium panel 12/07/19 Range/Units 22:33 Calcium 9.1 (8.4-10.2) mg/dL Albumin 4.1 (3.5-5.0) g/dL Pituitary panel 12/07/19 Range/Units 22:33 Sodium 137 (137-145) mmol/L Potassium 5.0 (3.5-5.1) mmol/L Chloride 105 (98-107) mmol/L Carbon Dioxide 24 (22-30) mmol/L BUN 20 H (7-17) mg/dL Creatinine 1.09 H (0.52-1.04) mg/dL Glucose 143 H (74-99) mg/dL Calcium 9.1 (8.4-10.2) mg/dL Adrenal panel 12/07/19 Range/Units 22:33 Sodium 137 (137-145) mmol/L Potassium 5.0 (3.5-5.1) mmol/L Chloride 105 (98-107) mmol/L Carbon Dioxide 24 (22-30) mmol/L BUN 20 H (7-17) mg/dL Creatinine 1.09 H (0.52-1.04) mg/dL Glucose 143 H (74-99) mg/dL Calcium 9.1 (8.4-10.2) mg/dL Total Bilirubin 0.5 (0.2-1.3) mg/dL AST 30 (14-36) U/L ALT 14 (4-34) U/L Alkaline Phosphatase 55 (38-126) U/L Total Protein 7.3 (6.3-8.2) g/dL Albumin 4.1 (3.5-5.0) g/dL Assessment and Plan (1) Ileus Current Visit: Yes Status: Acute Code(s): K56.7 - ILEUS, UNSPECIFIED SNOMED Code(s): 350540054 (2) Intractable abdominal pain Current Visit: Yes Status: Acute Code(s): R10.9 - UNSPECIFIED ABDOMINAL PAIN SNOMED Code(s): 64482126 (3) CHF (congestive heart failure) Current Visit: No Status: Acute Code(s): I50.9 - HEART FAILURE, UNSPECIFIED SNOMED Code(s): 72213846
[2019-12-08] MEDS ORDERED: MAGNESIUM HYDROXIDE 2,400 MG/10 ML CUP PO STA (14:38)
[2019-12-08] MEDS: LACTULOSE 20 GM/30 ML CUP PO SCH ×2 (14:56→21:05)
[2019-12-08] MEDS ORDERED: SENNOSIDES 8.6 MG TAB PO PRN (15:27)
[2019-12-08] MEDS ORDERED: FERROUS SULFATE 325 MG TAB PO SCH (15:30)
--- NOTE | 2019-12-08 15:33 | P.PN ---
Progress Note - Text Progress Note Date: 12/08/19 The patient is an 84-year-old female with a PMH of chronic A. fib on Coumadin, mitral valve repair, hypertension, hyperlipidemia, type II DM, AMANDA, Hudson's esophagus, pacemaker in place, history of strangulated hernia who presented to the ED with complaints of abdominal pain. The patient notes that she has been suffering with intermittent diffuse abdominal pain for the past 1 month, though it has recently been worsening over the past few days. She underwent an extensive evaluation in the emergency room with CT abdomen and pelvis with contrast showing mild small bowel mesenteric edema with laboratory evaluation showing lactate 1.1, WAC count 8.7, hemoglobin 12.5, INR 2.5, sodium 137, po tassium 5.0, BUN 20, creatinine 1.09, with glucose 143. The patient is being admitted to the medicine service for further management and GI evaluation. Patient was seen. Please refer to H&P for full documentation. Patient has been evaluated by general surgery and started on a full liquid diet along with aggressive bowel regimen. GI consultation is pending. We will continue normal saline at 60 mL per hour. Zofran as needed for nausea or vomiting. Morphine as needed for pain control. Restart metoprolol for history of A. fib. Discussed with RN to restart her home dose of Coumadin for anticoagulation. She is pending clinical improvement. Likely DC in 1-2 days.
[2019-12-08] MEDS: ACETAMINOPHEN TAB 325 MG TAB PO PRN ×2 (15:48→21:33)
[2019-12-08 16:41] LABS: Glucose,Whole Blood 153 mg/dL (75-99)
[2019-12-08] MEDS: GABAPENTIN 100 MG CAP PO SCH ×2 (17:12→21:05)
[2019-12-08] MEDS ORDERED: WARFARIN 3 MG TAB PO SCH (18:00)
[2019-12-08] MEDS ORDERED: ATORVASTATIN 10 MG TAB PO SCH (21:00)
[2019-12-08] MEDS: METOPROLOL TARTRATE 50 MG TAB PO SCH (21:05)
[2019-12-08] MEDS: DOCUSATE 100 MG CAP PO SCH (21:05)
[2019-12-08 21:08] LABS: Glucose,Whole Blood 119 mg/dL (75-99)
[2019-12-09] MEDS ORDERED: LEVOTHYROXINE 25 MCG TAB PO SCH (06:30)
[2019-12-09 07:06] LABS: Glucose,Whole Blood 115 mg/dL (75-99)
[2019-12-09 07:10] VITALS: BP 156/72; PULSE 77; RESP 16; TEMP 96.8
[2019-12-09] MEDS: LACTULOSE 20 GM/30 ML CUP PO SCH (08:08)
[2019-12-09] MEDS: GABAPENTIN 100 MG CAP PO SCH (08:08)
[2019-12-09] MEDS: DOCUSATE 100 MG CAP PO SCH (08:08)
[2019-12-09] MEDS: METOPROLOL TARTRATE 50 MG TAB PO SCH (08:08)
[2019-12-09] MEDS: ACETAMINOPHEN TAB 325 MG TAB PO PRN (08:14)
[2019-12-09 08:28] LABS: INR 2.6 (<1.2); Prothrombin Time 25.2 sec (9.0-12.0)
[2019-12-09] MEDS ORDERED: ASPIRIN 81 MG PO SCH (09:00)
[2019-12-09 11:43] LABS: Glucose,Whole Blood 168 mg/dL (75-99)
[2019-12-09] MEDS: SODIUM CHLORIDE 0.9% 1,000 ML IV SCH (11:55)
--- NOTE | 2019-12-09 16:42 | P.DS ---
Providers Date of admission: 12/08/19 01:16 Expected date of discharge: 12/09/19 Attending physician: Sravani Pierce MD Consults: 12/08/19 09:53 Consult Physician Routine Consulting Provider: Marco A Oliver Consult Reason/Comments: possible mesenteric ischemia Do you want consulting provider notified?: Yes Consult Physician Routine Consulting Provider: oLrie Phelan Consult Reason/Comments: possible mesenteric ischemia Do you want consulting provider notified?: Yes Primary care physician: Rashawn Moody Hospital Course: The patient is an 84-year-old female with a PMH of chronic A. fib on Coumadin, mitral valve repair, hypertension, hyperlipidemia, type II DM, AMANDA, Hudson's esophagus, pacemaker in place, history of strangulated hernia who presented to the ED with complaints of abdominal pain. The patient notes that she has been suffering with intermittent diffuse abdominal pain for the past 1 month, though it has recently been worsening over the past few days. She notes that the pain woke her up from sleep yesterday at 4 AM, and has persisted since then, rated at a 8 out of 10 in intensity, alleviated to 4 out of 10 with pain medication, diffuse, aching in nature, with no associated nausea, vomiting, diarrhea, bloody stools, or fever. At time of interview, she noted that her pain is a 3 out of 10 after receiving the pain medications in the emergency room. She notes that the pain does worsen with food. She otherwise denied any additional complaints including chest pain, shortness of breath, fever, chills, or cough. She underwent an extensive evaluation in the emergency room with CT abdomen and pelvis with contrast showing mild small bowel mesenteric edema with laboratory evaluation showing lactate 1.1, WAC count 8.7, hemoglobin 12.5, INR 2.5, sodium 137, potassium 5.0, BUN 20, creatinine 1.09, with glucose 143. The patient is being admitted to the medicine service for further management and GI evaluation. General surgery evaluated the patient and started treatment for constipation given stool burden seen on CT. Patient was given lactulose as needed along with docusate and Senokot. She had multiple bowel movements throughout the night. As per discussion with nursing, GI evaluated the patient and cleared the patient for discharge. Patient was seen and examined. No acute events overnight. Patient reports complete resolution of her abdominal pain. She denies any chest pain, shortness of breath or palpitations. No nausea or vomiting. No fever or chills. General: [non toxic], [no distress], [appears at stated age] Derm: [warm], [dry] Head: [atraumatic], [normocephalic], [symmetric] Eyes: [EOMI], [no lid lag], [anicteric sclera] Mouth: [no lip lesion], [mucus membranes moist] Cardiovascular: [S1S2 irreg], [no murmur], [positive DP pulse bilateral], Lungs: [CTA bilateral], [no rhonchi, no rales] , [no accessory muscle use] Abdominal: [soft], [ nontender to palpation], [no guarding], [no appreciable organomegaly] Ext: [no gross muscle atrophy], [no edema], [no contractures] Neuro: [no focal neuro deficits] Psych: [Alert], [oriented], [appropriate affect] Abdominal pain with mesenteric edema on CT scan, also large stool burden -patient was able to tolerate regular diet -general surgery evaluated the patient, started on aggressive bowel regimen, multiple bowel movements overnight, pain resolved Acute kidney injury -encourage hydration by mouth Chronic conditions: A. fib, hypertension, hyperlipidemia, hyperlipidemia -Continue with home meds DVT prophylaxis -Coumadin [Patient admitted for abdominal pain with concerns of these mesenteric ischemia. Evaluated by general surgery, thought to be more related to constipation, pain resolved with multiple bowel movements and aggressive bowel regimen. Cleared from surgical and GI standpoint as per RN. Patient to be discharged home today. Advise follow-up with PCP within 3 days of discharge. FU with GI within 1 week of discharge. Patient verbalized understanding of the plan.] Pertinent Studies: CT abdomen and pelvis Patient Condition at Discharge: Stable Plan - Discharge Summary Discharge Rx Participant: No New Discharge Prescriptions: New Ferrous Sulfate [Iron (65 MG Elemental)] 325 mg PO Q72H tab Sennosides [Senokot] 8.6 mg PO DAILY PRN #30 tab PRN Reason: Constipation Continue Gabapentin [Neurontin] 200 mg PO TID Levothyroxine Sodium [Synthroid] 25 mcg PO DAILY Lovastatin [Mevacor] 20 mg PO HS Aspirin 81 mg PO DAILY Metoprolol Tartrate [Lopressor] 25 mg PO BID Docusate [Colace] 100 mg PO BID Spironolactone [Aldactone] 25 mg PO DAILY HYDROcodone/APAP 7.5-325MG [[place] 7.5-325] 1 tab PO Q8H PRN PRN Reason: Pain Torsemide [Demadex] 20 mg PO DAILY Warfarin Sodium [Coumadin] 3 mg PO HS Esomeprazole Magnesium [NexIUM 24Hr] 40 mg PO BID Discharge Medication List Gabapentin [Neurontin] 200 mg PO TID 10/08/14 [History] Levothyroxine Sodium [Synthroid] 25 mcg PO DAILY 06/23/16 [History] Lovastatin [Mevacor] 20 mg PO HS 06/03/17 [History] Aspirin 81 mg PO DAILY 06/06/17 [History] Docusate [Colace] 100 mg PO BID 09/20/18 [History] Metoprolol Tartrate [Lopressor] 25 mg PO BID 09/20/18 [History] Esomeprazole Magnesium [NexIUM 24Hr] 40 mg PO BID 12/08/19 [History] HYDROcodone/APAP 7.5-325MG [[place] 7.5-325] 1 tab PO Q8H PRN 12/08/19 [History] Spironolactone [Aldactone] 25 mg PO DAILY 12/08/19 [History] Torsemide [Demadex] 20 mg PO DAILY 12/08/19 [History] Warfarin Sodium [Coumadin] 3 mg PO HS 12/08/19 [History] Ferrous Sulfate [Iron (65 MG Elemental)] 325 mg PO Q72H tab 12/09/19 [Rx] Sennosides [Senokot] 8.6 mg PO DAILY PRN #30 tab 12/09/19 [Rx] Follow up Appointment(s)/Referral(s): Lorie Phelan MD [STAFF PHYSICIAN] - 1 Week (Office closed at time of discharge please call TuesdayDecember 09 to set up a follow up appointment) Rashawn Farah MD [Primary Care Provider] - 1-2 days (Office closed at time of discharge please call TuesdayDecember 09 to set up a follow up appointment) Patient Instructions/Handouts: Heart Failure (DC), Constipation (DC), Prediabetes (DC) Activity/Diet/Wound Care/Special Instructions: Diet: High-fiber Follow-up PCP within 2 days of discharge. Follow-up with GI within 1 week of discharge. Take all medications as advised. Come back to the ED or call 911 for worsening abdominal pain, chest pain, shortness of breath, palpitations or dizziness. Discharge Disposition: HOME SELF-CARE
--- NOTE | 2019-12-09 23:57 | CONS ---
CONSULTATION DATE OF DICTATION: 12/09/2019 REASON FOR CONSULTATION: Abdominal pain. HISTORY OF PRESENT ILLNESS: The patient is an 84-year-old pleasant white female admitted to hospital with diffuse abdominal pain that started about 2 or 3 days ago. The patient states that for the last one month she has been having severe constipation and has been having intermittent abdominal pain on and off for the last few days. She normally has bowel movements once a week. She came to the emergency room and she did have a CT of the abdomen and pelvis done that showed evidence of fecal stasis and some small bowel mucosal edema noted. She was started on lactulose and magnesium citrate yesterday and her symptoms are significantly improved. This morning she states that the abdominal pain has completely resolved. She had 2 bowel movements last night and one this morning feeling much better and she wants to go home. She is on a regular diet, tolerating well. PAST MEDICAL HISTORY: Significant for chronic constipation, history of diabetes mellitus, hypertension, hyperlipidemia, atrial fibrillation, degenerative joint disease, hypothyroidism. PAST SURGICAL HISTORY: Colonoscopy about 2 years ago and patient stated it was normal, cholecystectomy, AICD implantation, pacemaker implantation, mitral valve repair, bilateral cataract. FAMILY HISTORY: Father had coronary artery disease. Mother had arthritis. MEDICATIONS: Medications at home include Neurontin, Synthroid, iron sulfate, Mevacor, aspirin, hydrocodone, Senokot, Colace, Lopressor, Coumadin, Cozaar, and Nexium. ALLERGIES: AUGMENTIN, CIPRO and SULFA. SOCIAL HISTORY: No smoking, no alcohol use. REVIEW OF SYSTEMS: CARDIOPULMONARY: No chest pain. No shortness of breath. GENITOURINARY: No dysuria or hematuria. MUSCULOSKELETAL: Unremarkable. SKIN: Unremarkable. ENDOCRINE: Unremarkable. PSYCHIATRIC: Unremarkable. NEUROLOGY: Unremarkable. ENT/VISION: Unremarkable. CONSTITUTIONAL: No recent weight loss. No fever, chills, night sweats. HEMATOLOGY: Unremarkable. PHYSICAL EXAMINATION: Blood pressure is 156/72, pulse rate 77, temperature . HEENT EXAMINATION: Unremarkable. Conjunctivae pink. Sclerae anicteric. Oral cavity, no lesions. NECK: No JVD or lymph node enlargement. CHEST: Clear to auscultation. HEART: Regular rate and rhythm. ABDOMEN: Soft. Bowel sounds are positive. No organomegaly. EXTREMITIES: No pedal edema. SKIN: No rashes. NEUROLOGIC: Alert and oriented x3. No focal deficits. LABS: Labs from yesterday: CBC with differential count is within normal limits. INR is 2.6. IMPRESSION: 1. This is a lady who comes with intermittent abdominal pain for the last one month duration, was admitted to the hospital 2 days ago when she presented with severe diffuse lower abdominal pain. CT of the abdomen and pelvis showed some small bowel edema noted and evidence of fecal stasis. She was given lactulose as well as magnesium citrate yesterday and she had several bowel movements and she is feeling much better. The abdominal pain has completely resolved. 2. History of chronic constipation secondary to narcotic use. 3. Atrial fibrillation on Coumadin. 4. History of hypertension and hyperlipidemia. RECOMMENDATIONS: 1. She was advised to continue with oral lactulose 30 mL twice daily. 2. Use stool softeners as needed. 3. High-fiber diet. 4. Advance diet as tolerated. 5. She can be discharged home today with an outpatient followup as needed. Thank you for this consultation. ARNULFO / ELVIRAN: [id number] /
== END 2019-12-09 13:52 | disposition home or self-care (01) ==
LOC: EC 21:41 → 4SSUR 12-08 01:16
PROVIDERS: ADMIT Internal Medicine; ATTEND Internal Medicine
DX: K59.09 Other constipation (principal); I48.20 Chronic atrial fibrillation, unspecified; Z79.01 Long term (current) use of anticoagulants; I10 Essential (primary) hypertension; E78.5 Hyperlipidemia, unspecified; E11.9 Type 2 diabetes mellitus without complications; G47.33 Obstructive sleep apnea (adult) (pediatric); E03.9 Hypothyroidism, unspecified; I11.0 Hypertensive heart disease with heart failure; I50.9 Heart failure, unspecified; K22.70 Barrett's esophagus without dysplasia; Z95.0 Presence of cardiac pacemaker; G89.29 Other chronic pain; M54.9 Dorsalgia, unspecified; K21.9 Gastro-esophageal reflux disease without esophagitis; Z95.810 Presence of automatic (implantable) cardiac defibrillator; M19.90 Unspecified osteoarthritis, unspecified site; Z90.49 Acquired absence of other specified parts of digestive tract; Z98.890 Other specified postprocedural states; Z82.49 Family history of ischemic heart disease and other diseases of the circulatory system; Z82.61 Family history of arthritis; Z79.82 Long term (current) use of aspirin; Z79.891 Long term (current) use of opiate analgesic; Z79.899 Other long term (current) drug therapy; Z79.890 Hormone replacement therapy; Z88.1 Allergy status to other antibiotic agents; Z88.0 Allergy status to penicillin; Z88.2 Allergy status to sulfonamides; Z88.8 Allergy status to other drugs, medicaments and biological substances
CPT/HCPCS: 96376; 96361 ×2; 96374; 99285; 36415; 80053; 82150; 83605; 83690; 85025; 85610 ×2; 85730; 81001; 74177; G0378 ×2; U0003; J2270 ×2; Q9967

== ENCOUNTER 2020-02-06 12:52 | Inpatient (IN) | payer MEDICARE ==
[2020-02-06] MEDS ORDERED: SODIUM CHLORIDE 0.9% 1,000 ML IV STA (13:41)
--- NOTE | 2020-02-06 13:55 | ED ---
General Adult HPI - General Chief complaint: GI Bleed Stated complaint: GI bleed Time Seen by Provider: 02/06/20 13:20 Source: patient, RN notes reviewed, old records reviewed Mode of arrival: wheelchair Limitations: no limitations - History of Present Illness Initial comments: This is an 84-year-old female presents emergency Department stating for a week she's had dark stools. Patient states she is on Coumadin. Patient states she's had no abdominal pain. Patient states she has been a little bit lightheaded over the last couple days but has not fallen has not passed out. Patient denies any chest pain or palpitations. Patient denies any headache patient denies numbness weakness. Patient denies any nausea or vomiting. - Related Data Home Medications Medication Instructions Recorded Confirmed Gabapentin [Neurontin] 200 mg PO TID 10/08/14 12/08/19 Levothyroxine Sodium [Synthroid] 25 mcg PO DAILY 06/23/16 12/08/19 Lovastatin [Mevacor] 20 mg PO HS 06/03/17 12/08/19 Aspirin 81 mg PO DAILY 06/06/17 12/08/19 Docusate [Colace] 100 mg PO BID 09/20/18 12/08/19 Metoprolol Tartrate [Lopressor] 25 mg PO BID 09/20/18 12/08/19 Esomeprazole Magnesium [NexIUM 40 mg PO BID 12/08/19 12/08/19 24Hr] HYDROcodone/APAP 7.5-325MG [[place] 1 tab PO Q8H PRN 12/08/19 12/08/19 7.5-325] Spironolactone [Aldactone] 25 mg PO DAILY 12/08/19 12/08/19 Torsemide [Demadex] 20 mg PO DAILY 12/08/19 12/08/19 Warfarin Sodium [Coumadin] 3 mg PO HS 12/08/19 12/08/19 Previous Rx's Medication Instructions Recorded Ferrous Sulfate [Iron (65 MG 325 mg PO Q72H tab 12/09/19 Elemental)] Sennosides [Senokot] 8.6 mg PO DAILY PRN #30 tab 12/09/19 Allergies Allergy/AdvReac Type Severity Reaction Status Date / Time amoxicillin trihydrate Allergy Swelling Verified 02/06/20 13:23 [From Augmentin] ciprofloxacin [From Cipro] Allergy Swelling Verified 02/06/20 13:23 ciprofloxacin HCl Allergy Swelling Verified 02/06/20 13:23 [From Cipro] potassium clavulanate Allergy Swelling Verified 02/06/20 13:23 [From Augmentin] Sulfa (Sulfonamide Allergy Rash/Hives Verified 02/06/20 13:23 Antibiotics) Review of Systems ROS Statement: Those systems with pertinent positive or pertinent negative responses have been documented in the HPI. ROS Other: All systems not noted in ROS Statement are negative. Past Medical History Past Medical History: Atrial Fibrillation, Heart Failure, Diabetes Mellitus, PEDRO PABLO D/Reflux, Hyperlipidemia, Hypertension, Osteoarthritis (OA), Pneumonia, Sleep Apnea/CPAP/BIPAP, Thyroid Disorder Additional Past Medical History / Comment(s): herr's esophagus. Patient reports that she is "borderline diabetic" but does not consider herself diabetic and does not take medication for this. Patient reports that she is up to date on her flu and pneumonia vaccines, but is unable to verify the exact date. 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/16, incarcerated hernia in bowel Past Anesthesia/Blood Transfusion Reactions: No Reported Reaction Type of Cardiac Device: Permanent Pacemaker Device Placement Date:: 2011 Past Psychological History: No Psychological Hx Reported Past Alcohol Use History: None Reported Past Drug Use History: None Reported - Past Family History Father Family Medical History: Myocardial Infarction ([place]) Mother Family Medical History: Osteoarthritis (OA) General Exam - General Exam Comments Initial Comments: GENERAL: Patient is well-developed and well-nourished. Patient is nontoxic and well- hydrated and is in mild distress. ENT: Neck is soft and supple. No significant lymphadenopathy is noted. Oropharynx is clear. Moist mucous membranes. Neck has full range of motion without eliciting any pain. EYES: The sclera were anicteric and conjunctiva were pink and moist. Extraocular movements were intact and pupils were equal round and reactive to light. Eyelids were unremarkable. PULMONARY: Unlabored respirations. Good breath sounds bilaterally. No audible rales rhonchi or wheezing was noted. CARDIOVASCULAR: There is a regular rate and rhythm without any murmurs gallops or rubs. ABDOMEN: Soft and nontender with normal bowel sounds. No palpable organomegaly was noted. There is no palpable pulsatile mass. SKIN: Skin is clear with no lesions or rashes and otherwise unremarkable. RECTAL: Patient still was very dark. NEUROLOGIC: Patient is alert and oriented x3. Cranial nerves II through XII are grossly intact. Motor and sensory are also intact. Normal speech, volume and content. Symmetrical smile. MUSCULOSKELETAL: Normal extremities with adequate strength and full range of motion. LYMPHATICS: No significant lymphadenopathy is noted PSYCHIATRIC: Normal psychiatric evaluation. Limitations: no limitations Course Vital Signs 02/06/20 13:19 Temperature 98.6 F Pulse Rate 70 Respiratory 16 Rate Blood Pressure 121/69 O2 Sat by Pulse 97 Oximetry Medical Decision Making - Medical Decision Making Patient's hemoglobin dropped significantly. I typed and crossed the patient. I started a second IV. I spoke with some physicians that he agreed to admit the patient admitted the patient wrote admitting orders. I consult to GI. - Lab Data Result diagrams: 02/06/20 13:56 02/06/20 13:56 Lab Results 02/06/20 02/06/20 02/06/20 Range/Units 13:56 13:56 13:56 WBC 7.8 (3.8-10.6) k/uL RBC 2.90 L (3.80-5.40) m/uL Hgb 8.4 L D (11.4-16.0) gm/dL Hct 27.4 L (34.0-46.0) % MCV 94.5 (80.0-100.0) fL MCH 28.9 (25.0-35.0) pg MCHC 30.6 L (31.0-37.0) g/dL RDW 14.8 (11.5-15.5) % Plt Count 264 (150-450) k/uL Neutrophils % 69 % Lymphocytes % 17 % Monocytes % 7 % Eosinophils % 3 % Basophils % 0 % Neutrophils # 5.4 (1.3-7.7) k/uL Lymphocytes # 1.4 (1.0-4.8) k/uL Monocytes # 0.6 (0-1.0) k/uL Eosinophils # 0.3 (0-0.7) k/uL Basophils # 0.0 (0-0.2) k/uL Hypochromasia Moderate PT 46.2 H (9.0-12.0) sec INR 4.6 H (<1.2) APTT 36.9 H (22.0-30.0) sec Sodium 140 (137-145) mmol/L Potassium 3.9 (3.5-5.1) mmol/L Chloride 106 (98-107) mmol/L Carbon Dioxide 24 (22-30) mmol/L Anion Gap 10 mmol/L BUN 29 H (7-17) mg/dL Creatinine 1.10 H (0.52-1.04) mg/dL Est GFR (CKD-EPI)AfAm 53 (>60 ml/min/1.73 sqM) Est GFR (CKD-EPI)NonAf 46 (>60 ml/min/1.73 sqM) Glucose 117 H (74-99) mg/dL Plasma Lactic Acid Joey (0.7-2.0) mmol/L Calcium 8.9 (8.4-10.2) mg/dL Magnesium 2.4 H (1.6-2.3) mg/dL Total Bilirubin 0.4 (0.2-1.3) mg/dL AST 22 (14-36) U/L ALT 11 (4-34) U/L Alkaline Phosphatase 45 (38-126) U/L Troponin I (0.000-0.034) ng/mL Total Protein 6.4 (6.3-8.2) g/dL Albumin 3.8 (3.5-5.0) g/dL Stool Occult Blood (Negative) 02/06/20 02/06/20 02/06/20 Range/Units 13:56 13:56 14:11 WBC (3.8-10.6) k/uL RBC (3.80-5.40) m/uL Hgb (11.4-16.0) gm/dL Hct (34.0-46.0) % MCV (80.0-100.0) fL MCH (25.0-35.0) pg MCHC (31.0-37.0) g/dL RDW (11.5-15.5) % Plt Count (150-450) k/uL Neutrophils % % Lymphocytes % % Monocytes % % Eosinophils % % Basophils % % Neutrophils # (1.3-7.7) k/uL Lymphocytes # (1.0-4.8) k/uL Monocytes # (0-1.0) k/uL Eosinophils # (0-0.7) k/uL Basophils # (0-0.2) k/uL Hypochromasia PT (9.0-12.0) sec INR (<1.2) APTT (22.0-30.0) sec Sodium (137-145) mmol/L Potassium (3.5-5.1) mmol/L Chloride (98-107) mmol/L Carbon Dioxide (22-30) mmol/L Anion Gap mmol/L BUN (7-17) mg/dL Creatinine (0.52-1.04) mg/dL Est GFR (CKD-EPI)AfAm (>60 ml/min/1.73 sqM) Est GFR (CKD-EPI)NonAf (>60 ml/min/1.73 sqM) Glucose (74-99) mg/dL Plasma Lactic Acid Joey 1.1 (0.7-2.0) mmol/L Calcium (8.4-10.2) mg/dL Magnesium (1.6-2.3) mg/dL Total Bilirubin (0.2-1.3) mg/dL AST (14-36) U/L ALT (4-34) U/L Alkaline Phosphatase (38-126) U/L Troponin I <0.012 (0.000-0.034) ng/mL Total Protein (6.3-8.2) g/dL Albumin (3.5-5.0) g/dL Stool Occult Blood Positive H (Negative) Disposition Clinical Impression: Lower gastrointestinal hemorrhage Disposition: ADMITTED IP TO THIS HOSP Referrals: Rashawn Farah MD [Primary Care Provider] - 1-2 days Time of Disposition: 15:53
[2020-02-06 14:24] LABS: Basophils % (A) 0 %; Eosinophils # (A) 0.3 k/uL (0-0.7); Eosinophils % (A) 3 %; HCT 27.4 % (34.0-46.0); Hypochromasia Moderate; Lymphocytes # (A) 1.4 k/uL (1.0-4.8); Lymphocytes % (A) 17 %; MCH 28.9 pg (25.0-35.0); MCHC 30.6 g/dL (31.0-37.0); MCV 94.5 fL (80.0-100.0); Mean Platelet Volume 7.1; Monocytes # (A) 0.6 k/uL (0-1.0); Monocytes % (A) 7 %; Neutrophils # (A) 5.4 k/uL (1.3-7.7); Neutrophils % (A) 69 %; Platelet Count 264 k/uL (150-450); RDW 14.8 % (11.5-15.5); WBC 7.8 k/uL (3.8-10.6)
[2020-02-06 14:28] LABS: HGB 8.4 gm/dL (11.4-16.0)
[2020-02-06 14:34] LABS: INR 4.6 (<1.2); Partial Thromboplastin Time 36.9 sec (22.0-30.0); Prothrombin Time 46.2 sec (9.0-12.0)
[2020-02-06 14:36] LABS: Albumin 3.8 g/dL (3.5-5.0); Calcium 8.9 mg/dL (8.4-10.2); Magnesium 2.4 mg/dL (1.6-2.3); Potassium 3.9 mmol/L (3.5-5.1); Total Bilirubin 0.4 mg/dL (0.2-1.3); Total Protein 6.4 g/dL (6.3-8.2)
[2020-02-06] MEDS ORDERED: PHYTONADIONE 10 MG in SODIUM CHLORIDE 0.9% 50 ML IVPB STA (15:24)
[2020-02-06] MEDS ORDERED: SODIUM CHLORIDE 0.9% 1,000 ML IV ONE (15:55)
[2020-02-06] MEDS ORDERED: HYDROcodone/APAP 7.5-325MG 1 EACH TAB PO PRN (18:27)
[2020-02-06] MEDS ORDERED: NALOXONE 0.4 MG/ML 1 ML VIAL IV PRN (18:32)
--- NOTE | 2020-02-06 18:32 | P.HPIM ---
History of Present Illness H&P Date: 02/06/20 Chief Complaint: melena 84-year-old female with PMH of atrial fibrillation, diabetes mellitus, hypertension, AMANDA, hypothyroidism presents the ED for melanotic stools. Patient reports 2 week history of black stools. She denies any abdominal complaints. She denies any fever or chills. She denies any nausea or vomiting. Her daughter was concerned which prompted her to come to the ED. She also reports lightheadedness especially with changes in position which has been getting worse. She denies any headache, lower extremity edema, cough, chest pain, shortness of breath, palpitations, changes in urination or bowel habits. No changes in appetite or weight. She denies any numbness weakness tingling of the extremities. In the ED, her vital signs are stable. Hemoglobin was 8.4. INR was 4.6. CMP showed BUN of 29, creatinine 1.1, glucose 117, magnesium 2.4. Stool for occult blood was positive. Patient is admitted for GI bleed with GI on consult. Review of Systems Pertinent positives and negatives as discussed in HPI, a complete review of systems was performed and all other systems are negative. Past Medical History Past Medical History: Atrial Fibrillation, Heart Failure, Diabetes Mellitus, GERD/Reflux, Hyperlipidemia, Hypertension, Osteoarthritis (OA), Pneumonia, Sleep Apnea/CPAP/BIPAP, Thyroid Disorder Additional Past Medical History / Comment(s): herr's esophagus. Patient reports that she is "borderline diabetic" but does not consider herself diabetic and does not take medication for this. Patient reports that she is up to date on her flu and pneumonia vaccines, but is unable to verify the exact date. 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/16, incarcerated hernia in bowel Past Anesthesia/Blood Transfusion Reactions: No Reported Reaction Type of Cardiac Device: Permanent Pacemaker Device Placement Date:: 2011 Past Psychological History: No Psychological Hx Reported Past Alcohol Use History: None Reported Past Drug Use History: None Reported - Past Family History Father Family Medical History: Myocardial Infarction ([place]) Mother Family Medical History: Osteoarthritis (OA) Medications and Allergies Home Medications Medication Instructions Recorded Confirmed Type Gabapentin [Neurontin] 200 mg PO TID 10/08/14 02/06/20 History Levothyroxine Sodium [Synthroid] 25 mcg PO DAILY 06/23/16 02/06/20 History Lovastatin [Mevacor] 20 mg PO HS 06/03/17 02/06/20 History Aspirin 81 mg PO DAILY 06/06/17 02/06/20 History Metoprolol Tartrate [Lopressor] 25 mg PO BID 09/20/18 02/06/20 History HYDROcodone/APAP 7.5-325MG [[place] 1 tab PO Q8H PRN 12/08/19 02/06/20 History 7.5-325] Spironolactone [Aldactone] 25 mg PO DAILY 12/08/19 02/06/20 History Torsemide [Demadex] 20 mg PO DAILY 12/08/19 02/06/20 History Warfarin Sodium [Coumadin] 3 mg PO HS 12/08/19 02/06/20 History Sennosides [Senokot] 8.6 mg PO DAILY 02/06/20 02/06/20 History Allergies Allergy/AdvReac Type Severity Reaction Status Date / Time amoxicillin trihydrate Allergy Swelling Verified 02/06/20 13:23 [From Augmentin] ciprofloxacin [From Cipro] Allergy Swelling Verified 02/06/20 13:23 ciprofloxacin HCl Allergy Swelling Verified 02/06/20 13:23 [From Cipro] potassium clavulanate Allergy Swelling Verified 02/06/20 13:23 [From Augmentin] Sulfa (Sulfonamide Allergy Rash/Hives Verified 02/06/20 13:23 Antibiotics) Physical Exam Vitals: Vital Signs Temp Pulse Resp BP Pulse Ox 02/06/20 17:17 97.8 F 71 18 122/60 100 02/06/20 13:19 98.6 F 70 16 121/69 97 Intake and Output 02/06/20 02/06/20 02/06/20 06:59 14:59 22:59 Other: Weight 61.235 kg General: [non toxic], [no distress], [appears at stated age] Derm: [warm], [dry] Head: [atraumatic], [normocephalic], [symmetric] Eyes: [EOMI], [no lid lag], [anicteric sclera] Mouth: [no lip lesion], [mucus membranes moist] Cardiovascular: [S1S2 reg], [systolic murmur], [positive DP pulse bilateral], Lungs: [CTA bilateral], [no rhonchi, no rales] , [no accessory muscle use] Abdominal: [soft], [ nontender to palpation], [no guarding], [no appreciable organomegaly] Ext: [no gross muscle atrophy], [no edema], [no contractures] Neuro: [ CN II-XI grossly intact], [no focal neuro deficits] Psych: [Alert], [oriented], [appropriate affect] Results CBC & Chem 7: 02/06/20 13:56 02/06/20 13:56 Labs: Abnormal Lab Results - Last 24 Hours (Table) 02/06/20 02/06/20 02/06/20 Range/Units 13:56 13:56 13:56 RBC 2.90 L (3.80-5.40) m/uL Hgb 8.4 L D (11.4-16.0) gm/dL Hct 27.4 L (34.0-46.0) % MCHC 30.6 L (31.0-37.0) g/dL PT 46.2 H (9.0-12.0) sec INR 4.6 H (<1.2) APTT 36.9 H (22.0-30.0) sec BUN 29 H (7-17) mg/dL Creatinine 1.10 H (0.52-1.04) mg/dL Glucose 117 H (74-99) mg/dL Magnesium 2.4 H (1.6-2.3) mg/dL Stool Occult Blood (Negative) 02/06/20 Range/Units 14:11 RBC (3.80-5.40) m/uL Hgb (11.4-16.0) gm/dL Hct (34.0-46.0) % MCHC (31.0-37.0) g/dL PT (9.0-12.0) sec INR (<1.2) APTT (22.0-30.0) sec BUN (7-17) mg/dL Creatinine (0.52-1.04) mg/dL Glucose (74-99) mg/dL Magnesium (1.6-2.3) mg/dL Stool Occult Blood Positive H (Negative) Assessment and Plan Assessment: acute GI bleed lightheadedness likely orthostatic supratherapeutic INR Acute kidney injury Atrial fibrillation Diabetes mellitus Hypertension Hypothyroidism Her hemoglobin is 8.4 which is a change from baseline. She also reports symptoms of orthostatic hypotension. Repeat CBC tomorrow morning. Follow GI consultation. Telemetry monitoring. Check orthostats. Start normal saline at 75 mL per hour. Vitamin K given. Repeat INR tomorrow morning. Creatinine 1.1. Likely due to dehydration. Normal saline as above. Avoid nephrotoxins. Repeat BMP tomorrow morning. Hold Coumadin. Hold metoprolol due to hypotension. Telemetry monitoring. Insulin sliding scale. Regular Accu-Cheks. Hyperglycemic precautions. BP borderline. Hold antihypertensive medication. Monitor vitals, adjust medications as necessary. Restart Synthroid. DVT prophylaxis: [SCD boots] Discussed with: [patient] Anticipated discharge: [1-2 days] Anticipated discharge place: [home] A total of [45] minutes was spent on the care of this complex patient more than 50% of the time was spent in counseling and care coordination. Patient names her daughter Tabatha decision-maker she can make decisions for herself. Patient would like to be full code.
[2020-02-06 20:09] LABS: Glucose,Whole Blood 127 mg/dL (75-99)
[2020-02-06] MEDS: INSULIN ASPART (NovoLOG) 100 UNIT/ML VIAL SQ SCH (20:26)
[2020-02-06] MEDS: ATORVASTATIN 10 MG TAB PO SCH (20:32)
[2020-02-06] MEDS: PANTOPRAZOLE 40 MG/10 ML VIAL IVP SCH (20:32)
[2020-02-06] MEDS: GABAPENTIN 100 MG CAP PO SCH (20:32)
[2020-02-07 06:10] LABS: Glucose,Whole Blood 128 mg/dL (75-99)
[2020-02-07] MEDS: INSULIN ASPART (NovoLOG) 100 UNIT/ML VIAL SQ SCH ×4 (06:11→20:37)
[2020-02-07 06:58] LABS: HCT 24.5 % (34.0-46.0); HGB 7.5 gm/dL (11.4-16.0); Hypochromasia Marked; MCH 29.3 pg (25.0-35.0); MCHC 30.7 g/dL (31.0-37.0); MCV 95.5 fL (80.0-100.0); Platelet Count 244 k/uL (150-450); RBC 2.56 m/uL (3.80-5.40); RDW 14.9 % (11.5-15.5); WBC 7.2 k/uL (3.8-10.6)
[2020-02-07 07:04] LABS: INR 1.4 (<1.2); Prothrombin Time 14.2 sec (9.0-12.0)
[2020-02-07 07:08] LABS: Potassium 3.9 mmol/L (3.5-5.1)
[2020-02-07 07:09] LABS: Albumin 3.1 g/dL (3.5-5.0); Calcium 8.1 mg/dL (8.4-10.2); Total Bilirubin 0.6 mg/dL (0.2-1.3); Total Protein 5.5 g/dL (6.3-8.2)
[2020-02-07] MEDS: LEVOTHYROXINE 25 MCG TAB PO SCH (07:54)
[2020-02-07] MEDS: PANTOPRAZOLE 40 MG/10 ML VIAL IVP SCH ×2 (07:54→20:37)
[2020-02-07] MEDS: GABAPENTIN 100 MG CAP PO SCH ×3 (07:54→20:37)
[2020-02-07] MEDS: SPIRONOLACTONE 25 MG TAB PO SCH (07:55)
[2020-02-07] MEDS: TORSEMIDE 20 MG TAB PO SCH (07:55)
--- NOTE | 2020-02-07 10:15 | CDI ---
Documentation Clarification Form Date: 02/07/2020 09:45:07 AM From: Heather Mccarthy RN CCDS Admit Date: 02/06/2020 03:55:00 PM Patient Name: Julisa Peres Visit Number: [id number] Discharge Date: ATTENTION: The Clinical Documentation Specialists (CDI) and [facility] Coding Staff appreciate your assistance in clarifying documentation. Please respond to the clarification below the line at the bottom and electronically sign. The CDI & [facility] Coding staff will review the response and follow-up if needed. Please note: Queries are made part of the Legal Health Record. If you have any questions, please contact the author of this message via ITS. Dr. Eulalio Carrillo or Dr. Anuj Meier: CHF is documented in the H&P in medical history 02/05. History/Risk Factors: 84-year-old female presents to the ED with a two-week history of black stools. Medical History: Atrial; AMANDA; DM and HTN Home medications Lopressor 25mg po bid; Aldactone 25mg po daily; Demadex 20mg po daily; Clinical Indicators: 09/06/19 VS/Pulse OX: BP: 121/69; HR 70; 09/12/2018 Echocardiogram Results: Left ventricular size is normal. Overall left ventricular systolic function is normal with, an EF between 55-60%. Inferior basal Hypokinesis Per H&P 02/05 Hold coumadin. Hold Metoprolol due to hypotension. Treatment: 02/05 Demadex 20mg po daily; Aldactone 25mg po daily In your professional opinion, can you please clarify the acuity and type of CHF if known? Chronic Diastolic Heart Failure Unable to Determine Other, please specify (Last Revision: September 2017) Chronic Diastolic heart Failure -Hardeep GARCIA
[2020-02-07 11:28] LABS: Glucose,Whole Blood 140 mg/dL (75-99)
[2020-02-07] MEDS ORDERED: PROPOFOL 10 MG/ML 20 ML VIAL IV ONE (12:58)
[2020-02-07] MEDS ORDERED: IV FLUID CONTINUATION 1,000 ML IV ONE (13:00)
--- NOTE | 2020-02-07 13:46 | P.CONS ---
History of Present Illness - Reason for Consult Consult date: 02/07/20 Melena Requesting physician: Eulalio Carrillo - Chief Complaint Melena - History of Present Illness 84-year-old female with a past medical history significant for atrial f ibrillation on Coumadin therapy, diabetes mellitus, hypertension, prostate, hypothyroidism who presented to the hospital due to concerns over black tarry bowel movements. The patient reports that these symptoms with them worse over the past few weeks which is been seen dark stools for at least a month. She denies any home NSAID use. She denies any prior history of peptic ulcer disease or GI bleed, she did report an EGD earlier in the year for evaluation of dysphagia. She believes her last colonoscopy was less than 5 years ago. She denies any bright red blood per rectum was seen at the hospital within the past few months with complaints of abdominal pain and found to have fecal stasis. Patient's hemoglobin found to be 8.4 on presentation down from 11.6 on blood draw last month. No nausea vomiting reported. The patient did have stool testing positive for occult blood. She also reported symptoms of weakness and lightheadedness. Review of Systems REVIEW OF SYSTEMS: CONSTITUTIONAL: Denies any fevers, chills, weight change but she is reporting fatigue and weakness. CARDIOVASCULAR: Denies any chest pain, palpitations high or low blood pressures RESPIRATORY: Denies any shortness of breath, hemoptysis or cough. GENITOURINARY: No dysuria or hematuria. MUSCULOSKELETAL: No weakness reported. SKIN: Denies any new rashes or lesions, jaundice or pallor. PSYCHIATRIC: Denies any depression or anxiety. NEUROLOGY: Denies headache, denies any new focal deficits. EARS/NOSE/THROAT: No recent hearing change, congestion, nasal discharge or sore throat. EYES: No pain in eyes, discharge or change in vision. GASTROINTESTINAL: As per HPI. Past Medical History Past Medical History: Atrial Fibrillation, Heart Failure, Diabetes Mellitus, GERD/Reflux, Hyperlipidemia, Hypertension, Osteoarthritis (OA), Pneumonia, Sleep Apnea/CPAP/BIPAP, Thyroid Disorder Additional Past Medical History / Comment(s): herr's esophagus. Patient reports that she is "borderline diabetic" but does not consider herself diabetic and does not take medication for this. Patient reports that she is up to date on her flu and pneumonia vaccines, but is unable to verify the exact date. 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/16, incarcerated hernia in bowel Past Anesthesia/Blood Transfusion Reactions: No Reported Reaction Type of Cardiac Device: Permanent Pacemaker Device Placement Date:: 2011 Past Psychological History: No Psychological Hx Reported Past Alcohol Use History: None Reported Past Drug Use History: None Reported - Past Family History Father Family Medical History: Myocardial Infarction ([place]) Mother Family Medical History: Osteoarthritis (OA) Medications and Allergies Home Medications Medication Instructions Recorded Confirmed Type Gabapentin [Neurontin] 200 mg PO TID 10/08/14 02/06/20 History Levothyroxine Sodium [Synthroid] 25 mcg PO DAILY 06/23/16 02/06/20 History Lovastatin [Mevacor] 20 mg PO HS 06/03/17 02/06/20 History Aspirin 81 mg PO DAILY 06/06/17 02/06/20 History Metoprolol Tartrate [Lopressor] 25 mg PO BID 09/20/18 02/06/20 History HYDROcodone/APAP 7.5-325MG [[place] 1 tab PO Q8H PRN 12/08/19 02/06/20 History 7.5-325] Spironolactone [Aldactone] 25 mg PO DAILY 12/08/19 02/06/20 History Torsemide [Demadex] 20 mg PO DAILY 12/08/19 02/06/20 History Warfarin Sodium [Coumadin] 3 mg PO HS 12/08/19 02/06/20 History Sennosides [Senokot] 8.6 mg PO DAILY 02/06/20 02/06/20 History Allergies Allergy/AdvReac Type Severity Reaction Status Date / Time amoxicillin trihydrate Allergy Swelling Verified 02/06/20 13:23 [From Augmentin] ciprofloxacin [From Cipro] Allergy Swelling Verified 02/06/20 13:23 ciprofloxacin HCl Allergy Swelling Verified 02/06/20 13:23 [From Cipro] potassium clavulanate Allergy Swelling Verified 02/06/20 13:23 [From Augmentin] Sulfa (Sulfonamide Allergy Rash/Hives Verified 02/06/20 13:23 Antibiotics) Physical Exam Vitals: Vital Signs Temp Pulse Pulse Resp BP BP Pulse Ox 02/07/20 12:00 98.2 F 71 18 132/59 95 02/07/20 11:07 98.2 F 71 18 132/59 95 02/07/20 08:00 71 02/07/20 07:52 98.5 F 71 18 141/64 94 L 02/07/20 04:00 98.1 F 70 16 134/73 94 L 02/07/20 00:00 98 F 70 16 101/61 95 02/06/20 20:00 98 F 70 16 132/62 94 L 02/06/20 18:29 98.1 F 56 L 18 122/49 97 02/06/20 17:17 97.8 F 71 18 122/60 100 Intake and Output 02/06/20 02/07/20 02/07/20 22:59 06:59 14:59 Intake Total 240 Balance 240 Intake: Oral 240 Other: # Voids 2 Weight 61.235 kg 64.9 kg On physical examination, patient appears comfortable in no apparent distress. HEAD: Normocephalic, atraumatic. EYES: No scleral icterus. No conjunctival injection. MOUTH: No lesions, tongue midline. NECK: Trachea midline, no gross abnormalities. CHEST: Clear to auscultation with no wheezing or rhonchi appreciated. HEART: S1-S2 appreciated. ABDOMEN: Soft, thin and nontender to palpation. Bowel sounds are positive. No organomegaly. No guarding or rigidity. EXTREMITIES: No pedal edema. SKIN: No rashes, no jaundice. NEUROLOGIC: Alert and oriented x3. No focal deficits. Results CBC & Chem 7: 02/07/20 06:25 02/07/20 06:25 Labs: Abnormal Lab Results - Last 24 Hours (Table) 02/06/20 02/06/20 02/06/20 Range/Units 13:56 13:56 13:56 RBC 2.90 L (3.80-5.40) m/uL Hgb 8.4 L D (11.4-16.0) gm/dL Hct 27.4 L (34.0-46.0) % MCHC 30.6 L (31.0-37.0) g/dL PT 46.2 H (9.0-12.0) sec INR 4.6 H (<1.2) APTT 36.9 H (22.0-30.0) sec Chloride (98-107) mmol/L BUN 29 H (7-17) mg/dL Creatinine 1.10 H (0.52-1.04) mg/dL Glucose 117 H (74-99) mg/dL POC Glucose (mg/dL) (75-99) mg/dL Calcium (8.4-10.2) mg/dL Magnesium 2.4 H (1.6-2.3) mg/dL Total Protein (6.3-8.2) g/dL Albumin (3.5-5.0) g/dL Stool Occult Blood (Negative) 02/06/20 02/06/20 02/07/20 Range/Units 14:11 20:07 06:09 RBC (3.80-5.40) m/uL Hgb (11.4-16.0) gm/dL Hct (34.0-46.0) % MCHC (31.0-37.0) g/dL PT (9.0-12.0) sec INR (<1.2) APTT (22.0-30.0) sec Chloride (98-107) mmol/L BUN (7-17) mg/dL Creatinine (0.52-1.04) mg/dL Glucose (74-99) mg/dL POC Glucose (mg/dL) 127 H 128 H (75-99) mg/dL Calcium (8.4-10.2) mg/dL Magnesium (1.6-2.3) mg/dL Total Protein (6.3-8.2) g/dL Albumin (3.5-5.0) g/dL Stool Occult Blood Positive H (Negative) 02/07/20 02/07/20 02/07/20 Range/Units 06:25 06:25 06:25 RBC 2.56 L (3.80-5.40) m/uL Hgb 7.5 L (11.4-16.0) gm/dL Hct 24.5 L (34.0-46.0) % MCHC 30.7 L (31.0-37.0) g/dL PT 14.2 H (9.0-12.0) sec INR 1.4 H (<1.2) APTT (22.0-30.0) sec Chloride 115 H (98-107) mmol/L BUN 19 H (7-17) mg/dL Creatinine (0.52-1.04) mg/dL Glucose 113 H (74-99) mg/dL POC Glucose (mg/dL) (75-99) mg/dL Calcium 8.1 L (8.4-10.2) mg/dL Magnesium (1.6-2.3) mg/dL Total Protein 5.5 L (6.3-8.2) g/dL Albumin 3.1 L (3.5-5.0) g/dL Stool Occult Blood (Negative) 02/07/20 Range/Units 11:27 RBC (3.80-5.40) m/uL Hgb (11.4-16.0) gm/dL Hct (34.0-46.0) % MCHC (31.0-37.0) g/dL PT (9.0-12.0) sec INR (<1.2) APTT (22.0-30.0) sec Chloride (98-107) mmol/L BUN (7-17) mg/dL Creatinine (0.52-1.04) mg/dL Glucose (74-99) mg/dL POC Glucose (mg/dL) 140 H (75-99) mg/dL Calcium (8.4-10.2) mg/dL Magnesium (1.6-2.3) mg/dL Total Protein (6.3-8.2) g/dL Albumin (3.5-5.0) g/dL Stool Occult Blood (Negative) Assessment and Plan (1) Melena Narrative/Plan: 84-year-old female with multiple medical comorbidities including atrial fibrillation on anticoagulation therapy with Coumadin who presented to the hospital due to weakness and dark black bowel movements. She reports that this is been frequent over the past 2 weeks and has been present for approximately a month. No bright red blood reported. She has been seen in the hospital within the past few months complaining of abdominal pain with imaging showing fecal stasis and treated with a bowel regimen. Last colonoscopy within 5 years per report from the patient. Last EGD she states was earlier in the year for dysphagia. She does not take any NSAIDs but uses Darvocet for pain. No prior peptic ulcer disease. Stool testing was positive for blood and patient was found to have an acute fall in hemoglobin from 11.6 last month down to 8.4. Concern is for GI blood loss anemia with differential including peptic ulcer dis ease, AVM, severe erosive gastritis or esophagitis or other etiology. Current Visit: Yes Status: Acute Code(s): K92.1 - MELENA SNOMED Code(s): 9408781 (2) Anemia associated with acute blood loss Current Visit: Yes Status: Acute Code(s): D62 - ACUTE POSTHEMORRHAGIC ANEMIA SNOMED Code(s): 436180884 Plan: supportive care Nothing by mouth Continue Protonix therapy Continue monitor hemoglobin and hematocrit and transfuse as needed Plan for EGD today for further evaluation Continue to hold anticoagulation therapy Avoid NSAID use Further recommendations pending findings of EGD Thank you for allowing us to participate in the care of the patient
--- NOTE | 2020-02-07 14:25 | P.PCN ---
Date of Procedure: 02/07/20 Description of Procedure: BRIEF HISTORY: 84-year-old female with a past medical history significant for atrial fibrillation on Coumadin therapy, diabetes mellitus, hypertension, prostate, hypothyroidism who presented to the hospital due to concerns over black tarry bowel movements. The patient reports that these symptoms with them worse over the past few weeks which is been seen dark stools for at least a month. She denies any home NSAID use. She denies any prior history of peptic ulcer disease or GI bleed, she did report an EGD earlier in the year for evaluation of dysphagia. She believes her last colonoscopy was less than 5 years ago. She denies any bright red blood per rectum was seen at the hospital within the past few months with complaints of abdominal pain and found to have fecal stasis. Patient's hemoglobin found to be 8.4 on presentation down from 11.6 on blood draw last month. No nausea vomiting reported. The patient did have stool testing positive for occult blood. She also reported symptoms of weakness and lightheadedness. PROCEDURE PERFORMED: Esophagogastroduodenoscopy. PREOPERATIVE DIAGNOSIS: Melena, anemia of acute blood loss. ESTIMATED BLOOD LOSS: Minimal. IV sedation per anesthesia. PROCEDURE: After informed consent was obtained, the patient was brought into the endoscopy unit. IV sedation was administered by Anesthesia under continuous monitoring. Initially the Olympus GIF-190 video endoscope was inserted into the mouth. Es ophagus intubated without any difficulty. It was gradually advanced into the stomach and duodenum and carefully examined. The bulb and the second part of the duodenum appeared normal. The scope at this time was withdrawn to the stomach, adequately insufflated with air, and upon careful examination, mucosa of the antrum, body, cardia and the fundus significant for a large amount of food debris noted throughout the entire stomach. There was some mild erythema of the antrum and body suggestive of mild gastritis , however complete visualization of the mucosa was severely limited by the food debris. Attempts were made to remove the food with the endoscope over complete visualization wasn't possible given the retained food.. The scope was then withdrawn into the esophagus. The GE junction was located at 37 cm from the incisors. The esophagus appeared normal. There were no erosions or ulcerations seen and the patient tolerated the procedure well. IMPRESSION: 1. Mild gastritis. 2. Large amount of retained food throughout the entire stomach prohibiting complete visualization of the mucosa. 3. No old blood, active bleed or pathology to explain symptoms. RECOMMENDATIONS: The findings of this examination were discussed with the patient. Okay for liquid diet. Continue to monitor hemoglobin and hematocrit and transfuse as needed. Patient will be prepped for repeat EGD tomorrow as well as colonoscopy for assessment of GI bleed..
--- NOTE | 2020-02-07 16:34 | P.PN ---
Subjective Progress Note Date: 02/07/20 Patient was seen and examined. No acute events overnight. Patient denies any chest or shortness breath or palpitations. No nausea or vomiting. No fever or chills. Scheduled for EGD today. Colonoscopy tomorrow. Objective - Vital Signs Vital signs: Vital Signs Temp 98.5 F 02/07/20 16:00 Pulse 71 02/07/20 16:00 Resp 18 02/07/20 16:00 BP 139/65 02/07/20 16:00 Pulse Ox 96 02/07/20 16:00 Intake & Output 02/06/20 02/07/20 02/07/20 18:59 06:59 18:59 Intake Total 240 100 Balance 240 100 Weight 61.235 kg 64.9 kg Intake: IV 100 Oral 240 Other: # Voids 2 1 - Exam General: [non toxic], [no distress], [appears at stated age] Derm: [warm], [dry] Head: [atraumatic], [normocephalic], [symmetric] Eyes: [EOMI], [no lid lag], [anicteric sclera] Mouth: [no lip lesion], [mucus membranes moist] Cardiovascular: [S1S2 reg], [systolic murmur], [positive DP pulse bilateral], Lungs: [CTA bilateral], [no rhonchi, no rales] , [no accessory muscle use] Abdominal: [soft], [ nontender to palpation], [no guarding], [no appreciable organomegaly] Ext: [no gross muscle atrophy], [no edema], [no contractures] Neuro: [no focal neuro deficits] Psych: [Alert], [oriented], [appropriate affect] - Labs CBC & Chem 7: 02/07/20 06:25 02/07/20 06:25 Labs: Abnormal Lab Results - Last 24 Hours (Table) 02/06/20 02/07/20 02/07/20 Range/Units 20:07 06:09 06:25 RBC 2.56 L (3.80-5.40) m/uL Hgb 7.5 L (11.4-16.0) gm/dL Hct 24.5 L (34.0-46.0) % MCHC 30.7 L (31.0-37.0) g/dL PT (9.0-12.0) sec INR (<1.2) Chloride (98-107) mmol/L BUN (7-17) mg/dL Glucose (74-99) mg/dL POC Glucose (mg/dL) 127 H 128 H (75-99) mg/dL Calcium (8.4-10.2) mg/dL Total Protein (6.3-8.2) g/dL Albumin (3.5-5.0) g/dL 02/07/20 02/07/20 02/07/20 Range/Units 06:25 06:25 11:27 RBC (3.80-5.40) m/uL Hgb (11.4-16.0) gm/dL Hct (34.0-46.0) % MCHC (31.0-37.0) g/dL PT 14.2 H (9.0-12.0) sec INR 1.4 H (<1.2) Chloride 115 H (98-107) mmol/L BUN 19 H (7-17) mg/dL Glucose 113 H (74-99) mg/dL POC Glucose (mg/dL) 140 H (75-99) mg/dL Calcium 8.1 L (8.4-10.2) mg/dL Total Protein 5.5 L (6.3-8.2) g/dL Albumin 3.1 L (3.5-5.0) g/dL Assessment and Plan Assessment: acute GI bleed Atrial fibrillation Diabetes mellitus Hypertension Hypothyroidism Result: Lightheadedness, supratherapeutic INR Her hemoglobin is 7.5 which is a change from baseline. She also reports symptoms of orthostatic hypotension. Repeat CBC tomorrow morning. EGD today shows no etiology for bleed. Plans for colonoscopy tomorrow. Telemetry monitoring. Hold Coumadin. Hold metoprolol due to hypotension. Telemetry monitoring. Insulin sliding scale. Regular Accu-Cheks. Hyperglycemic precautions. BP borderline. Hold antihypertensive medication. Monitor vitals, adjust medi cations as necessary. Restart Synthroid. [EGD unrevealing for source of bleed. Plans for colonoscopy tomorrow. Patient is pending clinical improvement. Likely DC in 1-2 days.]
[2020-02-07 16:54] LABS: Glucose,Whole Blood 133 mg/dL (75-99)
[2020-02-07] MEDS ORDERED: PEG 3350-NA SULF,BICARB,CL/KCL 4,000 ML BOTTLE PO ONE (17:00)
[2020-02-07 19:47] LABS: Glucose,Whole Blood 212 mg/dL (75-99)
[2020-02-07] MEDS: ACETAMINOPHEN TAB 325 MG TAB PO PRN (19:48)
[2020-02-07] MEDS: ATORVASTATIN 10 MG TAB PO SCH (20:37)
[2020-02-08] MEDS: LEVOTHYROXINE 25 MCG TAB PO SCH (06:08)
[2020-02-08 06:11] LABS: Glucose,Whole Blood 132 mg/dL (75-99)
[2020-02-08] MEDS: INSULIN ASPART (NovoLOG) 100 UNIT/ML VIAL SQ SCH ×4 (06:45→21:37)
[2020-02-08 08:18] LABS: HCT 25.3 % (34.0-46.0); HGB 7.7 gm/dL (11.4-16.0); Hypochromasia Moderate; MCH 28.7 pg (25.0-35.0); MCHC 30.3 g/dL (31.0-37.0); MCV 94.8 fL (80.0-100.0); Mean Platelet Volume 7.2; Platelet Count 245 k/uL (150-450); RBC 2.67 m/uL (3.80-5.40); RDW 14.9 % (11.5-15.5); WBC 9.7 k/uL (3.8-10.6)
[2020-02-08] MEDS: PANTOPRAZOLE 40 MG/10 ML VIAL IVP SCH ×2 (09:28→20:17)
[2020-02-08] MEDS: GABAPENTIN 100 MG CAP PO SCH ×3 (09:36→20:17)
[2020-02-08] MEDS: polyethylene glycoL 3350 17 GM POWD.PACK PO SCH (09:36)
[2020-02-08] MEDS ORDERED: MAGNESIUM CITRATE 296 ML BOTTLE PO ONE (10:04)
[2020-02-08 11:16] LABS: Glucose,Whole Blood 131 mg/dL (75-99)
[2020-02-08] MEDS ORDERED: LIDOCAINE 1% INJ 10MG/ML (20 ML MDV) ONE (14:02)
[2020-02-08] MEDS ORDERED: PROPOFOL 10 MG/ML 20 ML VIAL IV ONE (14:02)
[2020-02-08] MEDS ORDERED: IV FLUID CONTINUATION 1,000 ML IV ONE ×2 (14:04)
[2020-02-08 14:14] VITALS: BMI 15.8
--- NOTE | 2020-02-08 14:41 | P.PCN ---
Date of Procedure: 02/08/20 Procedure(s) Performed: Brief history: Patient is a pleasant 44-year-old white female admitted hospital with black tarry stools and anemia with hemoglobin of 7.7 g/dL. She is on Coumadin for A. fib. Currently on hold. INR is 1.4. She had an upper endoscopy by Dr. Sal schmitt but has significant amount of retained food in the stomach and the mucosa could not be visualized well. She is hence scheduled for repeat upper endoscopy as well as colonoscopy to evaluate further. Procedure performed: Esophagogastroduodenoscopy biopsy Colonoscopy Preoperative diagnosis: Severe symptomatic anemia and black tarry stools Anesthesia: MAC Procedure: After informed consent was obtained from the patient was brought into the endoscopy unit and IV sedation was administered by anesthesia under continuous monitoring. Initially upper endoscopy was done. The Olympus GF 160 video endoscope was inserted inserted into the mouth and esophagus intubated without any difficulty and was gradually advanced into the stomach and duodenum and carefully examined. The bulb and second part of the duodenum appeared normal. The scope was then withdrawn into the stomach adequately insufflated with air and upon careful examination the antrum had some gastritis and biopsies were done from this area. Thd body, cardia and fundus appeared normal. The scope was then withdrawn into the esophagus. The GE junction was located at 40 cm to the incisors. It appeared regular with no erythema erosions or ulcerations. Rest of the esophagus appeared normal. Patient tolerated the procedure well. At this time the patient continued to remain sedation. Initial digital rectal examination was normal. Olympus CF 160 video colonoscope was then inserted into the rectum and gradually advanced to the cecum without any difficulty. Careful examination was performed as the scope was gradually being withdrawn. The prep was excellent. The cecum, ascending colon, transverse colon, descending colon, sigmoid colon and rectum appeared normal. Scattered left sided diverticulosis seen. Retroflexion was performed in the rectum and no lesions were noted. Patient tolerated the procedure well. Impression: 1. Upper endoscopy revealed mild antral gastritis 2. Colonoscopy revealed scattered diffuse diverticulosis but no evidence of colorectal neoplasia Recommendations: Findings of this examination were discussed with the patient.. Her diet will be advanced as tolerated. Coumadin can be resumed] today.
--- NOTE | 2020-02-08 15:31 | P.PN ---
Subjective Progress Note Date: 02/08/20 Patient was seen and examined. No acute events overnight. Patient denies any chest or shortness breath or palpitations. No nausea or vomiting. No fever or chills. Scheduled for colonoscopy today. EGD shows gastritis and no source of GI bleed. Patient reports melanotic stools during her colonoscopy prep overnight. Objective - Vital Signs Vital signs: Vital Signs Temp 97.6 F 02/08/20 12:00 Pulse 66 02/08/20 12:00 Resp 16 02/08/20 12:00 BP 95/52 02/08/20 12:00 Pulse Ox 98 02/08/20 12:00 Intake & Output 02/07/20 02/08/20 02/08/20 18:59 06:59 18:59 Intake Total 100 100 Balance 100 100 Weight 46 kg 46 kg Intake: IV 100 100 Other: # Voids 1 1 # Bowel Movements 2 - Exam General: [non toxic], [no distress], [appears at stated age] Derm: [warm], [dry] Head: [atraumatic], [normocephalic], [symmetric] Eyes: [EOMI], [no lid lag], [anicteric sclera] Mouth: [no lip lesion], [mucus membranes moist] Cardiovascular: [S1S2 reg], [systolic murmur], [positive DP pulse bilateral], Lungs: [CTA bilateral], [no rhonchi, no rales] , [no accessory muscle use] Abdominal: [soft], [ nontender to palpation], [no guarding], [no appreciable organomegaly] Ext: [no gross muscle atrophy], [no edema], [no contractures] Neuro: [no focal neuro deficits] Psych: [Alert], [oriented], [appropriate affect] - Labs CBC & Chem 7: 02/08/20 07:33 02/07/20 06:25 Labs: Abnormal Lab Results - Last 24 Hours (Table) 02/07/20 02/07/20 02/08/20 Range/Units 16:52 19:45 06:09 RBC (3.80-5.40) m/uL Hgb (11.4-16.0) gm/dL Hct (34.0-46.0) % MCHC (31.0-37.0) g/dL POC Glucose (mg/dL) 133 H 212 H 132 H (75-99) mg/dL 02/08/20 02/08/20 Range/Units 07:33 11:14 RBC 2.67 L (3.80-5.40) m/uL Hgb 7.7 L (11.4-16.0) gm/dL Hct 25.3 L (34.0-46.0) % MCHC 30.3 L (31.0-37.0) g/dL POC Glucose (mg/dL) 131 H (75-99) mg/dL Assessment and Plan Assessment: acute GI bleed Atrial fibrillation Diabetes mellitus Hypertension Hypothyroidism Result: Lightheadedness, supratherapeutic INR Her hemoglobin is 7.7 which is a change from baseline. She also reports symptoms of orthostatic hypotension. Repeat CBC tomorrow morning. EGD today shows no etiology for bleed. Plans for colonoscopy today. Telemetry monitoring. Restart Coumadin after colonoscopy if no source of bleeding found. Restart metoprolol tonight. Telemetry monitoring. Insulin sliding scale. Regular Accu-Cheks. Hyperglycemic precautions. Restart metoprolol tonight. Monitor vitals, adjust medications as necessary. Restart Synthroid. [EGD unrevealing for source of bleed. Plans for colonoscopy today. Patient is pending clinical improvement. Plans to restart Coumadin if colonoscopy results are benign. Repeat CBC tomorrow morning. Plans on DC home tomorrow if patient continues to show improvement.]
[2020-02-08] MEDS: SPIRONOLACTONE 25 MG TAB PO SCH (16:24)
[2020-02-08] MEDS: TORSEMIDE 20 MG TAB PO SCH (16:24)
[2020-02-08] MEDS: ACETAMINOPHEN TAB 325 MG TAB PO PRN (16:30)
[2020-02-08 16:36] LABS: Glucose,Whole Blood 151 mg/dL (75-99)
[2020-02-08 19:58] LABS: Glucose,Whole Blood 146 mg/dL (75-99)
[2020-02-08] MEDS: ATORVASTATIN 10 MG TAB PO SCH (20:17)
[2020-02-08] MEDS: METOPROLOL TARTRATE 25 MG TAB PO SCH (20:17)
[2020-02-08] MEDS: WARFARIN 3 MG TAB PO SCH (20:17)
[2020-02-09 06:14] LABS: Glucose,Whole Blood 144 mg/dL (75-99)
[2020-02-09] MEDS: INSULIN ASPART (NovoLOG) 100 UNIT/ML VIAL SQ SCH ×4 (06:18→20:34)
[2020-02-09] MEDS: LEVOTHYROXINE 25 MCG TAB PO SCH (06:21)
[2020-02-09 07:06] LABS: Basophils % (A) 0 %; Eosinophils # (A) 0.4 k/uL (0-0.7); Eosinophils % (A) 4 %; HCT 26.4 % (34.0-46.0); Hypochromasia Marked; Lymphocytes # (A) 1.1 k/uL (1.0-4.8); Lymphocytes % (A) 11 %; MCH 28.9 pg (25.0-35.0); MCHC 30.4 g/dL (31.0-37.0); MCV 94.9 fL (80.0-100.0); Mean Platelet Volume 7.3; Monocytes # (A) 0.7 k/uL (0-1.0); Monocytes % (A) 7 %; Neutrophils # (A) 7.5 k/uL (1.3-7.7); Neutrophils % (A) 76 %; Platelet Count 263 k/uL (150-450); RBC 2.78 m/uL (3.80-5.40); RDW 14.9 % (11.5-15.5); WBC 9.8 k/uL (3.8-10.6)
[2020-02-09] MEDS: GABAPENTIN 100 MG CAP PO SCH ×3 (08:51→20:34)
[2020-02-09] MEDS: TORSEMIDE 20 MG TAB PO SCH (08:51)
[2020-02-09] MEDS: ASPIRIN 81 MG PO SCH (08:51)
[2020-02-09] MEDS: polyethylene glycoL 3350 17 GM POWD.PACK PO SCH (08:51)
[2020-02-09] MEDS: SPIRONOLACTONE 25 MG TAB PO SCH (08:52)
[2020-02-09] MEDS: PANTOPRAZOLE 40 MG/10 ML VIAL IVP SCH ×2 (08:52→20:35)
[2020-02-09] MEDS: METOPROLOL TARTRATE 25 MG TAB PO SCH ×2 (08:52→20:34)
[2020-02-09 10:59] LABS: INR 1.1 (<1.2); Prothrombin Time 10.9 sec (9.0-12.0)
[2020-02-09] MEDS: LACTATED RINGERS 1,000 ML IV SCH ×5 (11:49→16:38)
[2020-02-09 12:05] LABS: Glucose,Whole Blood 209 mg/dL (75-99)
--- NOTE | 2020-02-09 13:28 | P.PN ---
Subjective Progress Note Date: 02/09/20 No new complaints today, patient feels much better. The plan was to discharge her today with PCP and GI follow-up, however, upon trying to inability to bathroom, patient had a fall with low systolic blood pressure upon return to bed, prompting another day of observation. Objective - Vital Signs Vital signs: Vital Signs Temp 98.4 F 02/09/20 08:00 Pulse 70 02/09/20 08:00 Resp 18 02/09/20 08:00 BP 110/58 02/09/20 08:00 Pulse Ox 95 02/09/20 08:00 Intake & Output 02/08/20 02/09/20 02/09/20 18:59 06:59 18:59 Intake Total 100 120 Balance 100 120 Weight 46 kg 58.8 kg Intake: IV 100 Oral 120 Other: Voiding Method Toilet Toilet Toilet # Voids 1 1 - Exam Gen: awake, alert HEENT: normocephalic, atraumatic, good hearing acuity, moist mucous membranes Resp: CTAB, good air exchange, no accessory muscle use, no wheezes, crackles, rhonchi CVS: good distal perfusion x 4, RRR, no murmurs, clicks, gallops GI: soft, NTTP, ND : no SPT, no CVAT, chaudhry catheter not present MSK: no pitting edema, no clubbing Neuro: non-focal, no sensory deficits, appropriate tone Psych: cooperative, euthymic mood - Labs CBC & Chem 7: 02/09/20 06:41 02/07/20 06:25 Labs: Abnormal Lab Results - Last 24 Hours (Table) 02/08/20 02/08/20 02/09/20 Range/Units 16:35 19:57 06:13 RBC (3.80-5.40) m/uL Hgb (11.4-16.0) gm/dL Hct (34.0-46.0) % MCHC (31.0-37.0) g/dL POC Glucose (mg/dL) 151 H 146 H 144 H (75-99) mg/dL 02/09/20 02/09/20 Range/Units 06:41 12:04 RBC 2.78 L (3.80-5.40) m/uL Hgb 8.0 L (11.4-16.0) gm/dL Hct 26.4 L (34.0-46.0) % MCHC 30.4 L (31.0-37.0) g/dL POC Glucose (mg/dL) 209 H (75-99) mg/dL Assessment and Plan Assessment: acute GI bleed Atrial fibrillation Diabetes mellitus Hypertension Hypothyroidism Result: Lightheadedness, supratherapeutic INR Her hemoglobin is 7.7 which is a change from baseline. She also reports symptoms of orthostatic hypotension. Repeat CBC tomorrow morning. EGD today shows no etiology for bleed. Plans for colonoscopy today. Telemetry monitoring. Restart Coumadin after colonoscopy if no source of bleeding found. Restart metoprolol tonight. Telemetry monitoring. Insulin sliding scale. Regular Accu-Cheks. Hyperglycemic precautions. Restart metoprolol tonight. Monitor vitals, adjust medications as necessary. Restart Synthroid. [EGD unrevealing for source of bleed. Colonoscopy with diverticulosis but no evidence of active bleed. Patient is pending clinical improvement. Restarting Coumadin today. Repeat CBC tomorrow morning. Plans on DC home tomorrow if patient continues to show improvement.]
[2020-02-09 17:09] LABS: Glucose,Whole Blood 100 mg/dL (75-99)
[2020-02-09 20:01] LABS: Glucose,Whole Blood 155 mg/dL (75-99)
--- NOTE | 2020-02-09 20:31 | P.PN ---
Subjective Progress Note Date: 02/09/20 Principal diagnosis: Melena, anemia of acute blood loss Patient is seen lying in bed tolerating diet. No nausea or vomiting. No signs of GI bleeding reported. Objective - Vital Signs Vital signs: Vital Signs Temp 98 F 02/09/20 03:20 Pulse 71 02/09/20 03:20 Resp 16 02/09/20 03:20 BP 119/58 02/09/20 03:20 Pulse Ox 95 02/09/20 03:20 Intake & Output 02/08/20 02/09/20 02/09/20 18:59 06:59 18:59 Intake Total 100 120 Balance 100 120 Weight 46 kg 58.8 kg Intake: IV 100 Oral 120 Other: Voiding Method Toilet Toilet # Voids 1 1 - Exam On physical examination, patient appears comfortable in no apparent distress. HEAD: Normocephalic, atraumatic. EYES: No scleral icterus. No conjunctival injection. MOUTH: No lesions, tongue midline. NECK: Trachea midline, no gross abnormalities. ABDOMEN: Soft, obese. Bowel sounds are positive. No organomegaly. No guarding or rigidity. EXTREMITIES: No pedal edema. SKIN: No rashes, no jaundice. NEUROLOGIC: Alert and oriented. - Labs CBC & Chem 7: 02/09/20 06:41 02/07/20 06:25 Labs: Abnormal Lab Results - Last 24 Hours (Table) 02/08/20 02/08/20 02/09/20 Range/Units 16:35 19:57 06:13 RBC (3.80-5.40) m/uL Hgb (11.4-16.0) gm/dL Hct (34.0-46.0) % MCHC (31.0-37.0) g/dL POC Glucose (mg/dL) 151 H 146 H 144 H (75-99) mg/dL 02/09/20 02/09/20 Range/Units 06:41 12:04 RBC 2.78 L (3.80-5.40) m/uL Hgb 8.0 L (11.4-16.0) gm/dL Hct 26.4 L (34.0-46.0) % MCHC 30.4 L (31.0-37.0) g/dL POC Glucose (mg/dL) 209 H (75-99) mg/dL Assessment and Plan (1) Melena Narrative/Plan: 84-year-old female with multiple medical comorbidities including atrial fibrillation on anticoagulation therapy with Coumadin who presented to the hospital due to weakness and dark black bowel movements. She reports that this is been frequent over the past 2 weeks and has been present for approximately a month. No bright red blood reported. She has been seen in the hospital within the past few months complaining of abdominal pain with imaging showing fecal stasis and treated with a bowel regimen. Last colonoscopy within 5 years per report from the patient. Last EGD she states was earlier in the year for dysphagia. She does not take any NSAIDs but uses Darvocet for pain. No prior peptic ulcer disease. Stool testing was positive for blood and patient was found to have an acute fall in hemoglobin from 11.6 last month down to 8. 4, and stable at 8.0 today with no further signs or symptoms of bleeding. Patient underwent EGD significant only for mild gastritis and colonoscopy for diverticulosis with no active bleeding or old blood noted. Current Visit: Yes Status: Acute Code(s): K92.1 - MELENA SNOMED Code(s): 8306848 (2) Anemia associated with acute blood loss Current Visit: Yes Status: Acute Code(s): D62 - ACUTE POSTHEMORRHAGIC ANEMIA SNOMED Code(s): 578203386 Plan: supportive care Okay for diet as tolerated Continue monitor hemoglobin and hematocrit and she chooses needed Continue Protonix therapy Okay to resume Coumadin therapy Okay for discharge when otherwise medically stable Thank you for allowing us to participate in the care of the patient
[2020-02-09] MEDS: WARFARIN 3 MG TAB PO SCH (20:34)
[2020-02-09] MEDS: ATORVASTATIN 10 MG TAB PO SCH (20:34)
[2020-02-10 06:07] LABS: Glucose,Whole Blood 154 mg/dL (75-99)
[2020-02-10] MEDS: LEVOTHYROXINE 25 MCG TAB PO SCH (06:23)
[2020-02-10] MEDS: INSULIN ASPART (NovoLOG) 100 UNIT/ML VIAL SQ SCH (06:23)
[2020-02-10 08:27] VITALS: BP 100/54; PULSE 71; RESP 16; TEMP 98.4
[2020-02-10] MEDS: polyethylene glycoL 3350 17 GM POWD.PACK PO SCH (08:28)
[2020-02-10] MEDS: TORSEMIDE 20 MG TAB PO SCH (08:29)
[2020-02-10] MEDS: GABAPENTIN 100 MG CAP PO SCH (08:29)
[2020-02-10] MEDS: PANTOPRAZOLE 40 MG/10 ML VIAL IVP SCH (08:29)
[2020-02-10] MEDS: METOPROLOL TARTRATE 25 MG TAB PO SCH (08:29)
[2020-02-10] MEDS: ASPIRIN 81 MG PO SCH (08:29)
[2020-02-10] MEDS: SPIRONOLACTONE 25 MG TAB PO SCH (08:29)
[2020-02-10 11:46] LABS: INR 1.1 (<1.2); Prothrombin Time 11.3 sec (9.0-12.0)
--- NOTE | 2020-02-10 14:36 | P.DS ---
Providers Date of admission: 02/06/20 15:55 Attending physician: Eulalio Carrillo MD Consults: 02/06/20 15:55 Consult Physician Urgent Consulting Provider: Shawn Huang Consult Reason/Comments: GI bleed Do you want consulting provider notified?: Yes Primary care physician: Rashawn Sellerslázaro [facility] [place] Course: acute GI bleed Atrial fibrillation Diabetes mellitus Hypertension Hypothyroidism Result: Lightheadedness, supratherapeutic INR 84 year old woman with history of AFib, DM, HTN, Hypothyroidism presented with lightheadedness, supratherapeutic INR and BRBPR. Pt underwent EGD/[place] which did not show etiology of bleed. She did not have any further drop in Hgb while in house. Her coumadin was restarted post-endoscopy without any further bleeding. Her metoprolol was downtitrated due to orthostatic symptoms on discharge. Pt will follow up with PCP on discharge. Plan - Discharge Summary New Discharge Prescriptions: New Metoprolol Tartrate [Lopressor] 12.5 mg PO BID #30 tab polyethylene glycoL 3350 [Miralax] 17 gm PO DAILY #15 powd.pack Acetaminophen Tab [Tylenol] 650 mg PO Q6HR PRN tab PRN Reason: Mild Pain Or Fever > 100.5 Continue Gabapentin [Neurontin] 200 mg PO TID Levothyroxine Sodium [Synthroid] 25 mcg PO DAILY Lovastatin [Mevacor] 20 mg PO HS Aspirin 81 mg PO DAILY Spironolactone [Aldactone] 25 mg PO DAILY Torsemide [Demadex] 20 mg PO DAILY Warfarin Sodium [Coumadin] 3 mg PO HS Discontinued Metoprolol Tartrate [Lopressor] 25 mg PO BID HYDROcodone/APAP 7.5-325MG [[place] 7.5-325] 1 tab PO Q8H PRN PRN Reason: Pain Sennosides [Senokot] 8.6 mg PO DAILY Discharge Medication List Gabapentin [Neurontin] 200 mg PO TID 10/08/14 [History] Levothyroxine Sodium [Synthroid] 25 mcg PO DAILY 06/23/16 [History] Lovastatin [Mevacor] 20 mg PO HS 06/03/17 [History] Aspirin 81 mg PO DAILY 06/06/17 [History] Spironolactone [Aldactone] 25 mg PO DAILY 12/08/19 [History] Torsemide [Demadex] 20 mg PO DAILY 12/08/19 [History] Warfarin Sodium [Coumadin] 3 mg PO HS 12/08/19 [History] Acetaminophen Tab [Tylenol] 650 mg PO Q6HR PRN tab 02/10/20 [Rx] Metoprolol Tartrate [Lopressor] 12.5 mg PO BID #30 tab 02/10/20 [Rx] polyethylene glycoL 3350 [Miralax] 17 gm PO DAILY #15 powd.pack 02/10/20 [Rx] Follow up Appointment(s)/Referral(s): Rashawn Farah MD [Primary Care Provider] - 1-2 days (Office is closed. Please call to schedule appointment) Shawn Huang MD [STAFF PHYSICIAN] - 2 Weeks (Office is closed. Please call to schedule appointment) Patient Instructions/Handouts: Gastritis (DC), Diverticulosis (DC), Diverticulosis Diet (GEN) Discharge Disposition: HOME SELF-CARE
--- NOTE | 2020-02-10 21:03 | P.PN ---
Subjective Progress Note Date: 02/10/20 Principal diagnosis: Melena, anemia of acute blood loss Patient is seen sitting in bed. Plan is for discharge today. She is not having any acute complaints. Objective - Vital Signs Vital signs: Vital Signs Temp 98.4 F 02/10/20 08:00 Pulse 71 02/10/20 08:00 Resp 16 02/10/20 08:00 BP 100/54 02/10/20 08:00 Pulse Ox 94 L 02/10/20 08:00 Intake & Output 02/09/20 02/10/20 02/10/20 18:59 06:59 18:59 Intake Total 356 240 Output Total 200 Balance 356 -200 240 Weight 58.6 kg Intake: Oral 356 240 Output: Urine 200 Other: Voiding Method Toilet Toilet Toilet # Voids 3 1 # Bowel Movements 1 - Exam On physical examination, patient appears comfortable in no apparent distress. HEAD: Normocephalic, atraumatic. EYES: No scleral icterus. No conjunctival injection. MOUTH: No lesions, tongue midline. NECK: Trachea midline, no gross abnormalities. ABDOMEN: Soft, obese. Bowel sounds are positive. No organomegaly. No guarding or rigidity. EXTREMITIES: No pedal edema. SKIN: No rashes, no jaundice. NEUROLOGIC: Alert and oriented. - Labs CBC & Chem 7: 02/09/20 06:41 02/07/20 06:25 Labs: Abnormal Lab Results - Last 24 Hours (Table) 02/09/20 02/09/20 02/09/20 Range/Units 12:04 17:08 19:59 POC Glucose (mg/dL) 209 H 100 H 155 H (75-99) mg/dL 02/10/20 Range/Units 06:06 POC Glucose (mg/dL) 154 H (75-99) mg/dL Assessment and Plan (1) Melena Narrative/Plan: 84-year-old female with multiple medical comorbidities including atrial fibrillation on anticoagulation therapy with Coumadin who presented to the hospital due to weakness and dark black bowel movements. She reports that this is been frequent over the past 2 weeks and has been present for approximately a month. No bright red blood reported. She has been seen in the hospital within the past few months complaining of abdominal pain with imaging showing fecal stasis and treated with a bowel regimen. Last colonoscopy within 5 years per report from the patient. Last EGD she states was earlier in the year for dysphagia. She does not take any NSAIDs but uses Darvocet for pain. No prior peptic ulcer disease. Stool testing was positive for blood and patient was found to have an acute fall in hemoglobin from 11.6 last month down to 8. 4, and stable at 8.0 today with no further signs or symptoms of bleeding. Patient underwent EGD significant only for mild gastritis and colonoscopy for diverticulosis with no active bleeding or old blood noted. Status: Acute Code(s): K92.1 - MELENA SNOMED Code(s): 5579635 (2) Anemia associated with acute blood loss Status: Acute Code(s): D62 - ACUTE POSTHEMORRHAGIC ANEMIA SNOMED Code(s): 297593433 Plan: supportive care Okay for diet as tolerated Continue monitor hemoglobin and hematocrit and she chooses needed Continue Protonix therapy Okay to resume Coumadin therapy Okay for discharge when otherwise medically stable Thank you for allowing us to participate in the care of the patient
--- NOTE | 2020-02-12 12:51 | CDI ---
Paroxysmal -Hardeep Documentation Clarification Form Date: 02/12/20 From: Melanie Madison Phone: If you have a question about this query, please contact Beena Mac, Office Equipment Mechanic at [phone] between 8am and 5pm. Admit Date: 02/06/20 Discharge Date: 02/10/20 Patient Name: YESSI DEVINE Visit Number: [id number] ATTENTION: The Clinical Documentation Specialists (CDI) and [facility] Coding Staff appreciate your assistance in clarifying documentation. Please respond to the clarification below the line at the bottom and electronically sign. The CDI & [facility] Coding staff will review the response and follow-up if needed. Please note: Queries are made part of the Legal Health Record. If you have any questions, please contact the author of this message via ITS. Dear Dr. Anuj Meier, Atrial Fibrillation is documented in the ED note, H&P, consult, procedure note, progress notes and DS. History/Risk Factors: melena, HARVEY, hypertensive heart disease w CHF, DM, gastritis, eft sided diverticulosis, AMANDA, orthostatic hypotension, dehydration, hyperlipidemia, hypothyroidism Clinical Indicators: Past history significant for atrial fibrillation on Coumadin therapy. EKG/telemetry: none available Treatment: Coumadin 3 mg PO HS In your professional opinion, can you please clarify the type of Atrial Fibrillation, if known? Chronic Permanent Paroxysmal Persistent, longstanding Persistent, other Persistent, permanent Other, please specify Unable to determine MTDD
--- NOTE | 2020-02-14 12:16 | CDI ---
Documentation Clarification Form Date: 02/12/20 From: Melanie Madison Phone: If you have a question about this query, please contact Beena Mac, Roll Threader Operator at [phone] between 8am and 5pm. Admit Date: 02/06/20 Discharge Date: 02/10/20 Patient Name: YESSI DEVINE Visit Number: [id number] ATTENTION: The Clinical Documentation Specialists (CDI) and [facility] Coding Staff appreciate your assistance in clarifying documentation. Please respond to the clarification below the line at the bottom and electronically sign. The CDI & [facility] Coding staff will review the response and follow-up if needed. Please note: Queries are made part of the Legal Health Record. If you have any questions, please contact the author of this message via ITS. Dear Dr. Anuj Meier, Atrial Fibrillation is documented in the ED note, H&P, consult, procedure note, progress notes and DS. History/Risk Factors: melena, HARVEY, hypertensive heart disease w CHF, DM, gastritis, eft sided diverticulosis, AMANDA, orthostatic hypotension, dehydration, hyperlipidemia, hypothyroidism Clinical Indicators: Past history significant for atrial fibrillation on Coumadin therapy. EKG/telemetry: none available Treatment: Coumadin 3 mg PO HS In your professional opinion, can you please clarify the type of Atrial Fibrillation, if known? Chronic Permanent Paroxysmal Persistent, longstanding Persistent, other Persistent, permanent Other, please specify Unable to determine MTDD
== END 2020-02-10 12:02 | disposition home or self-care (01) | DRG 378 ==
LOC: EC 12:52 → 3SCARD 15:55
PROVIDERS: ADMIT Family Medicine; ATTEND Family Medicine
PROC: 0DJ08ZZ Inspection of Upper Intestinal Tract, Via Natural or Artificial Opening Endoscopic (ICD-10-PCS; principal; 2020-02-07 08:40)
PROC: 0DJD8ZZ Inspection of Lower Intestinal Tract, Via Natural or Artificial Opening Endoscopic (ICD-10-PCS; 2020-02-08)
PROC: 0DB78ZX Excision of Stomach, Pylorus, Via Natural or Artificial Opening Endoscopic, Diagnostic (ICD-10-PCS; 2020-02-08 13:35)
DX: K92.1 Melena (principal); N17.9 Acute kidney failure, unspecified; D62 Acute posthemorrhagic anemia; I50.32 Chronic diastolic (congestive) heart failure; I48.0 Paroxysmal atrial fibrillation; I11.0 Hypertensive heart disease with heart failure; E11.9 Type 2 diabetes mellitus without complications; K29.70 Gastritis, unspecified, without bleeding; K57.30 Diverticulosis of large intestine without perforation or abscess without bleeding; G47.33 Obstructive sleep apnea (adult) (pediatric); K22.70 Barrett's esophagus without dysplasia; E86.0 Dehydration; I95.1 Orthostatic hypotension; E78.5 Hyperlipidemia, unspecified; E03.9 Hypothyroidism, unspecified; K21.9 Gastro-esophageal reflux disease without esophagitis; M19.90 Unspecified osteoarthritis, unspecified site; R79.1 Abnormal coagulation profile; Z79.82 Long term (current) use of aspirin; Z79.890 Hormone replacement therapy; Z79.01 Long term (current) use of anticoagulants; Z79.899 Other long term (current) drug therapy; Z95.810 Presence of automatic (implantable) cardiac defibrillator; Z90.49 Acquired absence of other specified parts of digestive tract; Z95.2 Presence of prosthetic heart valve; Z98.49 Cataract extraction status, unspecified eye; Z87.19 Personal history of other diseases of the digestive system; Z87.01 Personal history of pneumonia (recurrent); Z98.890 Other specified postprocedural states; Z88.1 Allergy status to other antibiotic agents; Z88.0 Allergy status to penicillin; Z88.2 Allergy status to sulfonamides; Z88.8 Allergy status to other drugs, medicaments and biological substances; W19.XXXA Unspecified fall, initial encounter; Z82.49 Family history of ischemic heart disease and other diseases of the circulatory system; Z82.61 Family history of arthritis
CPT/HCPCS: 36415; 43235; 43239; 45378; 80053; 82272; 83605; 83735; 84484; 85025; 85027; 85610; 85730; 86850; 86900; 86901; 88305; 96361; 96365; 96366; 99284

== ENCOUNTER 2020-03-24 19:46 | Inpatient (IN) | payer MEDICARE ==
[2020-03-24 21:00] LABS: Basophils % (A) 0 %; Eosinophils # (A) 0.2 k/uL (0-0.7); Eosinophils % (A) 2 %; HCT 39.3 % (34.0-46.0); Hypochromasia Marked; Lymphocytes # (A) 0.7 k/uL (1.0-4.8); Lymphocytes % (A) 5 %; MCH 27.9 pg (25.0-35.0); MCV 93.1 fL (80.0-100.0); Mean Platelet Volume 7.1; Monocytes # (A) 0.6 k/uL (0-1.0); Monocytes % (A) 5 %; Neutrophils # (A) 11.2 k/uL (1.3-7.7); Neutrophils % (A) 88 %; Platelet Count 293 k/uL (150-450); RBC 4.22 m/uL (3.80-5.40); RDW 14.5 % (11.5-15.5); WBC 12.7 k/uL (3.8-10.6)
[2020-03-24 21:05] LABS: Calcium 9.4 mg/dL (8.4-10.2); Potassium 4.1 mmol/L (3.5-5.1); Total Bilirubin 0.4 mg/dL (0.2-1.3)
[2020-03-24] MEDS ORDERED: MORPHINE SULFATE 4 MG/ML SYRINGE IV STA (21:16)
[2020-03-24 21:25] LABS: HGB 11.8 gm/dL (11.4-16.0)
--- NOTE | 2020-03-24 21:53 | CT ---
EXAMINATION TYPE: CT abdomen pelvis w con DATE OF EXAM: 03/24/2020 COMPARISON: 12/07/2019 HISTORY: abdominal pain CT DLP: 732.3 mGycm Automated exposure control for dose reduction was used. CONTRAST: Performed with IV Contrast, patient injected with 100 mL of Isovue 300. There is some patchy infiltrate and atelectasis at the posterior lung bases. There is mild pleural th ickening at the lung bases. Heart is enlarged. Liver shows no focal defect. There are clips from chol ecystectomy. The common bile duct is dilated and measures 1.8 cm. Spleen is intact. Stomach is intact . There is no evidence of pancreatic mass. There is no adrenal mass. Kidneys show satisfactory contrast opacification. There is no hydronephrosi s. Ureters are not dilated. There is no retroperitoneal adenopathy. Bladder distends smoothly. Delaye d images show normal renal excretion. There are multiple dilated air and fluid-filled small bowel loops in the mid abdomen. Appendix is pos terior and appears normal. Small bowel is dilated to the cecum. There is some retained fecal material in the right colon. There is small bowel surgery in the right mid abdomen. Large bowel is not dilate d. There is no evidence of free air. There is no evidence of ascites. There is no mesenteric edema. Ther e is narrowing of L5 disc space with first-degree degenerative spondylolisthesis. There is no lumbar compression fracture. IMPRESSION: Dilated small bowel suggestive of a partial mechanical small bowel obstruction. This appears new comp ared to old exam. Mild constipation. Moderate sigmoid diverticulosis without diverticulitis. There is mild interstitial infiltrates and at electasis at the lung bases not significantly different than old exam.
[2020-03-24 22:04] LABS: Appearance,Urine Cloudy (Clear); Bilirubin,Urine Negative (Negative); Blood,Urine Negative (Negative); Color,Urine Yellow; Glucose,Urine (UA) Negative (Negative); Hyaline Casts,Urine 232 /lpf (0-2); Ketones,Urine Negative (Negative); Leukocyte Esterase,Urine Moderate (Negative); Mucus,Urine Occasional /hpf; Nitrite,Urine Negative (Negative); PH, Urine 5.5 (5.0-8.0); Protein,Urine Trace (Negative); RBC,Urine 1 /hpf (0-5); Squamous Epithelial Cell,Urine 8 /hpf (0-4); Urobilinogen,Urine <2.0 mg/dL (<2.0); WBC,Urine 5 /hpf (0-5)
--- NOTE | 2020-03-24 22:18 | ED ---
General Adult HPI - General Source: patient, RN notes reviewed, old records reviewed Mode of arrival: wheelchair Limitations: no limitations <Diego Crawford - Last Filed: 03/24/20 22:18> <Lester Morocho - Last Filed: 03/24/20 22:52> - General Chief complaint: Abdominal Pain Stated complaint: Flank/Back Pain Time Seen by Provider: 03/24/20 20:31 - History of Present Illness Initial comments: 84-year-old female patient received 2 days of abdominal pain. Patient reports it as periumbilical and epigastric. Reports nausea without emesis. Denies any chest pain or shortness of breath. Denies any other complaints. Systemic: Pt denies fatigue, fever/chills, rash. Pt denies weakness, night sweats, weight loss. Neuro: Pt denies headache, visual disturbances, syncope or pre-syncope. HEENT: Pt denies ocular discharge or irritation, otalgia, rhinorrhea, pharyngitis or notable lymphadenopathy. Cardiopulmonary: Pt denies chest pain, SOB, heart palpitations, dyspnea on exertion. Abdominal/GI: Pt denies n/v/d. : Pt denies dysuria, burning w/ urination, frequency/urgency. Denies new onset urinary or bowel incontinence. MSK: Pt denies myalgia, loss of strength or function in extremities. Neuro: Pt denies new onset weakness, paresthesias. (Diego Crawford) - Related Data Home Medications Medication Instructions Recorded Confirmed Gabapentin [Neurontin] 200 mg PO TID 10/08/14 03/24/20 Levothyroxine Sodium [Synthroid] 25 mcg PO HS 06/23/16 03/24/20 Lovastatin [Mevacor] 20 mg PO HS 06/03/17 03/24/20 Aspirin 81 mg PO DAILY 06/06/17 03/24/20 Torsemide [Demadex] 10 mg PO DAILY 12/08/19 03/24/20 Warfarin Sodium [Coumadin] 3 mg PO HS 12/08/19 03/24/20 HYDROcodone/APAP 7.5-325MG [[place] 1 tab PO RT-TID 03/24/20 03/24/20 7.5-325] Omeprazole 20 mg PO BID 03/24/20 03/24/20 Psyllium Husk 100% [Metamucil 3 gm PO BID 03/24/20 03/24/20 Packet] Sennosides [Senna] 8.6 mg PO DAILY 03/24/20 03/24/20 Previous Rx's Medication Instructions Recorded Metoprolol Tartrate [Lopressor] 12.5 mg PO BID #30 tab 02/10/20 Allergies Allergy/AdvReac Type Severity Reaction Status Date / Time amoxicillin trihydrate Allergy Swelling Verified 03/24/20 21:43 [From Augmentin] ciprofloxacin [From Cipro] Allergy Swelling Verified 03/24/20 21:43 ciprofloxacin HCl Allergy Swelling Verified 03/24/20 21:43 [From Cipro] potassium clavulanate Allergy Swelling Verified 03/24/20 21:43 [From Augmentin] Sulfa (Sulfonamide Allergy Rash/Hives Verified 03/24/20 21:43 Antibiotics) Review of Systems ROS Other: All systems not noted in ROS Statement are negative. <Diego Crawford - Last Filed: 03/24/20 22:18> ROS Other: All systems not noted in ROS Statement are negative. <Lester Morocho - Last Filed: 03/24/20 22:52> ROS Statement: Those systems with pertinent positive or pertinent negative responses have been documented in the HPI. Past Medical History Past Medical History: Atrial Fibrillation, Heart Failure, Diabetes Mellitus, GERD/Reflux, Hyperlipidemia, Hypertension, Osteoarthritis (OA), Pneumonia, Sleep Apnea/CPAP/BIPAP, Thyroid Disorder Additional Past Medical History / Comment(s): herr's esophagus. Patient reports that she is "borderline diabetic" but does not consider herself diabetic and does not take medication for this. Patient reports that she is up to date on her flu and pneumonia vaccines, but is unable to verify the exact date. 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/16, incarcerated hernia in bowel Past Anesthesia/Blood Transfusion Reactions: No Reported Reaction Type of Cardiac Device: Permanent Pacemaker Device Placement Date:: 2011 Past Psychological History: No Psychological Hx Reported Smoking Status: Never smoker Past Alcohol Use History: None Reported Past Drug Use History: None Reported - Past Family History Father Family Medical History: Myocardial Infarction (NM) Mother Family Medical History: Osteoarthritis (OA) <Diego Crawford - Last Filed: 03/24/20 22:18> General Exam Limitations: no limitations <Diego Crawford - Last Filed: 03/24/20 22:18> - General Exam Comments Initial Comments: Constitutional: NAD, AOX3, Pt has pleasant affect. HEENT: NC/AT, trachea midline, neck supple, no lymphadenopathy. Posterior pharynx non erythematous, without exudates. External ears appear normal, without discharge. Mucous membranes moist. Eyes PERRLA, EOM intact. There is no scleral icterus. No pallor noted. Cardiopulmonary: RRR, no murmurs, rubs or gallops, no JVD noted. Lungs CTAB in anterior and posterior baca. No peripheral edema. Abdominal exam: Abdomen soft and mildly distended. Mild tenderness in ep igastric region. Bowel sounds active in LLQ. No hepatosplenomegaly. No ecchymosis Neuro: CN II-XII grossly intact. No nuchal rigidity. No raccon eyes, no lema sign, no hemotympanum. No cervical spinal tenderness. MSK:Full active ROM in upper and lower extremities, 5/5 stregnth. (Diego Crawford) Course <Lester Morocho - Last Filed: 03/24/20 22:52> Vital Signs 03/24/20 03/24/20 19:58 21:48 Temperature 98.9 F Pulse Rate 68 70 Respiratory 16 18 Rate Blood Pressure 141/71 146/70 O2 Sat by Pulse 97 93 L Oximetry - Reevaluation(s) Reevaluation #1: 03/24/20 22:51 PA supervision: I did personally evaluate the patient with a [id number] evaluation she did present with complaints of 2 days of abdominal pain and distention she did demonstrate evidence of epigastric tenderness palpation with distention imaging was performed and did show evidence of. Patient be admitted with consultation by surgery. I do agree with the assessment and plan (Lester Morocho) Medical Decision Making - Lab Data Result diagrams: 03/24/20 20:49 03/24/20 20:49 <Diego Crawford - Last Filed: 03/24/20 22:18> - Lab Data Result diagrams: 03/24/20 20:49 03/24/20 20:49 <Lester Morocho - Last Filed: 03/24/20 22:52> - Medical Decision Making 84-year-old female patient with CVG waning abdominal pain 2 days. Patient vital signs are stable, afebrile. Physical exam displayed mild epigastric tenderness. Laboratory investigations revealed mild leukocytosis. CT of the pelvis with small bowel obstruction. EKG displayed paced rhythm. Patient has NG tube placement admitted for further evaluation. Case discussed with (Diego Crawford) - Lab Data Lab Results 03/24/20 03/24/20 03/24/20 Range/Units 20:49 20:49 20:49 WBC 12.7 H (3.8-10.6) k/uL RBC 4.22 (3.80-5.40) m/uL Hgb 11.8 D (11.4-16.0) gm/dL Hct 39.3 (34.0-46.0) % MCV 93.1 (80.0-100.0) fL MCH 27.9 (25.0-35.0) pg MCHC 30.0 L (31.0-37.0) g/dL RDW 14.5 (11.5-15.5) % Plt Count 293 (150-450) k/uL Neutrophils % 88 % Lymphocytes % 5 % Monocytes % 5 % Eosinophils % 2 % Basophils % 0 % Neutrophils # 11.2 H (1.3-7.7) k/uL Lymphocytes # 0.7 L (1.0-4.8) k/uL Monocytes # 0.6 (0-1.0) k/uL Eosinophils # 0.2 (0-0.7) k/uL Basophils # 0.0 (0-0.2) k/uL Hypochromasia Marked Sodium 139 (137-145) mmol/L Potassium 4.1 (3.5-5.1) mmol/L Chloride 103 (98-107) mmol/L Carbon Dioxide 28 (22-30) mmol/L Anion Gap 8 mmol/L BUN 16 (7-17) mg/dL Creatinine 0.89 (0.52-1.04) mg/dL Est GFR (CKD-EPI)AfAm 68 (>60 ml/min/1.73 sqM) Est GFR (CKD-EPI)NonAf 59 (>60 ml/min/1.73 sqM) Glucose 182 H (74-99) mg/dL Plasma Lactic Acid Joey (0.7-2.0) mmol/L Calcium 9.4 (8.4-10.2) mg/dL Total Bilirubin 0.4 (0.2-1.3) mg/dL AST 30 (14-36) U/L ALT 14 (4-34) U/L Alkaline Phosphatase 60 (38-126) U/L Troponin I (0.000-0.034) ng/mL Total Protein 7.0 (6.3-8.2) g/dL Albumin 4.0 (3.5-5.0) g/dL Lipase 16 L (23-300) U/L Urine Color Yellow Urine Appearance Cloudy H (Clear) Urine pH 5.5 (5.0-8.0) Ur Specific [place] 1.030 (1.001-1.035) Urine Protein Trace H (Negative) Urine Glucose (UA) Negative (Negative) Urine Ketones Negative (Negative) Urine Blood Negative (Negative) Urine Nitrite Negative (Negative) Urine Bilirubin Negative (Negative) Urine Urobilinogen <2.0 (<2.0) mg/dL Ur Leukocyte Esterase Moderate H (Negative) Urine RBC 1 (0-5) /hpf Urine WBC 5 (0-5) /hpf Ur Squamous Epith Cells 8 H (0-4) /hpf Hyaline Casts 232 H (0-2) /lpf Urine Mucus Occasional H (None) /hpf 03/24/20 03/24/20 Range/Units 20:49 21:12 WBC (3.8-10.6) k/uL RBC (3.80-5.40) m/uL Hgb (11.4-16.0) gm/dL Hct (34.0-46.0) % MCV (80.0-100.0) fL MCH (25.0-35.0) pg MCHC (31.0-37.0) g/dL RDW (11.5-15.5) % Plt Count (150-450) k/uL Neutrophils % % Lymphocytes % % Monocytes % % Eosinophils % % Basophils % % Neutrophils # (1.3-7.7) k/uL Lymphocytes # (1.0-4.8) k/uL Monocytes # (0-1.0) k/uL Eosinophils # (0-0.7) k/uL Basophils # (0-0.2) k/uL Hypochromasia Sodium (137-145) mmol/L Potassium (3.5-5.1) mmol/L Chloride (98-107) mmol/L Carbon Dioxide (22-30) mmol/L Anion Gap mmol/L BUN (7-17) mg/dL Creatinine (0.52-1.04) mg/dL Est GFR (CKD-EPI)AfAm (>60 ml/min/1.73 sqM) Est GFR (CKD-EPI)NonAf (>60 ml/min/1.73 sqM) Glucose (74-99) mg/dL Plasma Lactic Acid Joey 1.0 (0.7-2.0) mmol/L Calcium (8.4-10.2) mg/dL Total Bilirubin (0.2-1.3) mg/dL AST (14-36) U/L ALT (4-34) U/L Alkaline Phosphatase (38-126) U/L Troponin I <0.012 (0.000-0.034) ng/mL Total Protein (6.3-8.2) g/dL Albumin (3.5-5.0) g/dL Lipase (23-300) U/L Urine Color Urine Appearance (Clear) Urine pH (5.0-8.0) Ur Specific [place] (1.001-1.035) Urine Protein (Negative) Urine Glucose (UA) (Negative) Urine Ketones (Negative) Urine Blood (Negative) Urine Nitrite (Negative) Urine Bilirubin (Negative) Urine Urobilinogen (<2.0) mg/dL Ur Leukocyte Esterase (Negative) Urine RBC (0-5) /hpf Urine WBC (0-5) /hpf Ur Squamous Epith Cells (0-4) /hpf Hyaline Casts (0-2) /lpf Urine Mucus (None) /hpf Disposition Is patient prescribed a controlled substance at d/c from ED?: No <Diego Crawford - Last Filed: 03/24/20 22:18> <Lester Morocho - Last Filed: 03/24/20 22:52> Clinical Impression: Small bowel obstruction Disposition: ADMITTED IP TO THIS [facility] Condition: Serious Referrals: Rashawn Farah MD [Primary Care Provider] - 1-2 days
[2020-03-24] MEDS ORDERED: SODIUM CHLORIDE 0.9% 1,000 ML IV STA (22:42)
[2020-03-24] MEDS ORDERED: MORPHINE SULFATE 4 MG/ML SYRINGE IVP STA (23:05)
[2020-03-24] MEDS ORDERED: NALOXONE 0.4 MG/ML 1 ML VIAL IV PRN (23:19)
[2020-03-25] MEDS: SODIUM CHLORIDE 0.9% 1,000 ML IV SCH ×3 (00:30→23:12)
[2020-03-25] MEDS: MORPHINE SULFATE 4 MG/ML SYRINGE IVP PRN ×4 (01:03→19:19)
[2020-03-25] MEDS ORDERED: ONDANSETRON 4 MG/2 ML VIAL IVP PRN (09:06)
[2020-03-25] MEDS: PANTOPRAZOLE 40 MG/10 ML VIAL IVP SCH (10:02)
[2020-03-25 11:46] LABS: INR 2.9 (<1.2); Prothrombin Time 28.5 sec (9.0-12.0)
[2020-03-25] MEDS ORDERED: PHYTONADIONE 10 MG in SODIUM CHLORIDE 0.9% 50 ML IVPB STA (12:13)
--- NOTE | 2020-03-25 12:25 | P.GSCN ---
History of Present Illness Consult date: 03/25/20 History of present illness: CHIEF COMPLAINT: Abdominal pain HISTORY OF PRESENT ILLNESS: This is a 84-year-old female with a known history of atrial fibrillation anticoagulated with Coumadin, borderline diabetes, congestive heart failure, AICD placement, GERD, hyperlipidemia, hypertension, sleep apnea, hypothyroidism, Herr's esophagus, prior cholecystectomy, prior incarcerated hernia and bowel resection. Patient presents to the emergency room with complaints of abdominal pain for 2 days. She was having nausea and vomiting. She reports the emesis as dark. She does reports a normal bowel movement yesterday. She had a computed tomography scan of the abdomen and pelvis showing dilated small bowel suggestive of partial mechanical small bowel obstruction. I she required NG tube to be placed in the ER. She had 750 output through the NG tube. She denies any fever, chills or sweats. She's afebrile. PAST MEDICAL HISTORY: See list. PAST SURGICAL HISTORY: See list. MEDICATIONS: See list. ALLERGIES: See list. SOCIAL HISTORY: No illicit drug use. REVIEW OF SYSTEMS: CONSTITUTIONAL: Denies fever or chills. HEENT: Denies blurred vision, vision changes, or eye pain. Denies hemoptysis CARDIOVASCULAR: Denies chest pain or pressure. RESPIRATORY: No shortness of breath. GASTROINTESTINAL: See HPI for pertinent findings HEMATOLOGIC: Denies bleeding disorders. GENITOURINARY: Denies any blood in urine or increased urinary frequency. SKIN: Denies pruitis. Denies rash. PHYSICAL EXAM: VITAL SIGNS: Reviewed GENERAL: Well-developed in no acute distress. HEENT: No sclera icterus. Extraocular movements grossly intact. Moist buccal mucosa. Head is atraumatic, normocephalic. No nasal drainage. ABDOMEN: Soft. Distended. Diffuse tenderness. NG tube in place. Output through tube is brownish in color with particles NEUROLOGIC: Alert and oriented. Cranial nerves II through XII grossly intact. LABORATORY DATA: WBC 12.7 INR 2.9 IMAGING: CT abdomen and pelvis showing dilated small bowel suggestive of partial mechanical small bowel obstruction. Mild constipation ASSESSMENT: 1. Partial mechanical small bowel obstruction 2. History of atrial fibrillation anticoagulated with Coumadin 3. History of AICD 4. History of borderline diabetes 5. Essential hypertension 6. Prior history incarcerated left femoral hernia and small bowel obstruction status post small bowel resection PLAN: -Keep NG tube in place for decompression -Keep patient nothing by mouth -Anticipate possible exploratory laparotomy for possible lysis of adhesions tomorrow with Dr. Oliver -Consult cardiology for cardiac clearance -Give vitamin K to to reverse patient's INR -Hold Coumadin for possible surgery tomorrow -Continue IV fluids -Continue IV Zofran as needed for nausea -Continue pain medication as needed Thank you for this consultation Physician Stone Processing Machine Operator note has been reviewed by physician. Signing provider agrees with the documented findings, assessment, and plan of care. Past Medical History Past Medical History: Atrial Fibrillation, Heart Failure, Diabetes Mellitus, GERD/Reflux, Hyperlipidemia, Hypertension, Osteoarthritis (OA), Pneumonia, Sleep Apnea/CPAP/BIPAP, Thyroid Disorder Additional Past Medical History / Comment(s): herr's esophagus. Patient reports that she is "borderline diabetic" but does not consider herself diabetic and does not take medication for this. Patient reports that she is up to date on her flu and pneumonia vaccines, but is unable to verify the exact date. 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/16, incarcerated hernia in bowel Past Anesthesia/Blood Transfusion Reactions: No Reported Reaction Type of Cardiac Device: Permanent Pacemaker Device Placement Date:: 2011 Past Psychological History: No Psychological Hx Reported Smoking Status: Never smoker Past Alcohol Use History: None Reported Past Drug Use History: None Reported - Past Family History Father Family Medical History: Myocardial Infarction ([place]) Mother Family Medical History: Osteoarthritis (OA) Medications and Allergies Home Medications Medication Instructions Recorded Confirmed Type Gabapentin [Neurontin] 200 mg PO TID 10/08/14 03/24/20 History Levothyroxine Sodium [Synthroid] 25 mcg PO HS 06/23/16 03/24/20 History Lovastatin [Mevacor] 20 mg PO HS 06/03/17 03/24/20 History Aspirin 81 mg PO DAILY 06/06/17 03/24/20 History Torsemide [Demadex] 10 mg PO DAILY 12/08/19 03/24/20 History Warfarin Sodium [Coumadin] 3 mg PO HS 12/08/19 03/24/20 History Metoprolol Tartrate [Lopressor] 12.5 mg PO BID #30 tab 02/10/20 03/24/20 Rx HYDROcodone/APAP 7.5-325MG [[place] 1 tab PO RT-TID 03/24/20 03/24/20 History 7.5-325] Omeprazole 20 mg PO BID 03/24/20 03/24/20 History Psyllium Husk 100% [Metamucil 3 gm PO BID 03/24/20 03/24/20 History Packet] Sennosides [Senna] 8.6 mg PO DAILY 03/24/20 03/24/20 History Allergies Allergy/AdvReac Type Severity Reaction Status Date / Time amoxicillin trihydrate Allergy Swelling Verified 03/24/20 21:43 [From Augmentin] ciprofloxacin [From Cipro] Allergy Swelling Verified 03/24/20 21:43 ciprofloxacin HCl Allergy Swelling Verified 03/24/20 21:43 [From Cipro] potassium clavulanate Allergy Swelling Verified 03/24/20 21:43 [From Augmentin] Sulfa (Sulfonamide Allergy Rash/Hives Verified 03/24/20 21:43 Antibiotics) Surgical - Exam Vital Signs Temp Pulse Resp BP Pulse Ox 98.9 F 68 16 141/71 97 03/24/20 19:58 03/24/20 19:58 03/24/20 19:58 03/24/20 19:58 03/24/20 19:58 Results - Labs 03/24/20 20:49 03/24/20 20:49 Abnormal Lab Results - Last 24 Hours (Table) 03/24/20 03/24/20 03/24/20 Range/Units 20:49 20:49 20:49 WBC 12.7 H (3.8-10.6) k/uL MCHC 30.0 L (31.0-37.0) g/dL Neutrophils # 11.2 H (1.3-7.7) k/uL Lymphocytes # 0.7 L (1.0-4.8) k/uL PT (9.0-12.0) sec INR (<1.2) Glucose 182 H (74-99) mg/dL Lipase 16 L (23-300) U/L Urine Appearance Cloudy H (Clear) Urine Protein Trace H (Negative) Ur Leukocyte Esterase Moderate H (Negative) Ur Squamous Epith Cells 8 H (0-4) /hpf Hyaline Casts 232 H (0-2) /lpf Urine Mucus Occasional H (None) /hpf 03/25/20 Range/Units 10:30 WBC (3.8-10.6) k/uL MCHC (31.0-37.0) g/dL Neutrophils # (1.3-7.7) k/uL Lymphocytes # (1.0-4.8) k/uL PT 28.5 H (9.0-12.0) sec INR 2.9 H (<1.2) Glucose (74-99) mg/dL Lipase (23-300) U/L Urine Appearance (Clear) Urine Protein (Negative) Ur Leukocyte Esterase (Negative) Ur Squamous Epith Cells (0-4) /hpf Hyaline Casts (0-2) /lpf Urine Mucus (None) /hpf Diabetes panel 03/24/20 Range/Units 20:49 Sodium 139 (137-145) mmol/L Potassium 4.1 (3.5-5.1) mmol/L Chloride 103 (98-107) mmol/L Carbon Dioxide 28 (22-30) mmol/L BUN 16 (7-17) mg/dL Creatinine 0.89 (0.52-1.04) mg/dL Glucose 182 H (74-99) mg/dL Calcium 9.4 (8.4-10.2) mg/dL AST 30 (14-36) U/L ALT 14 (4-34) U/L Alkaline Phosphatase 60 (38-126) U/L Total Protein 7.0 (6.3-8.2) g/dL Albumin 4.0 (3.5-5.0) g/dL Calcium panel 03/24/20 Range/Units 20:49 Calcium 9.4 (8.4-10.2) mg/dL Albumin 4.0 (3.5-5.0) g/dL Pituitary panel 03/24/20 Range/Units 20:49 Sodium 139 (137-145) mmol/L Potassium 4.1 (3.5-5.1) mmol/L Chloride 103 (98-107) mmol/L Carbon Dioxide 28 (22-30) mmol/L BUN 16 (7-17) mg/dL Creatinine 0.89 (0.52-1.04) mg/dL Glucose 182 H (74-99) mg/dL Calcium 9.4 (8.4-10.2) mg/dL Adrenal panel 09/28/20 Range/Units 20:49 Sodium 139 (137-145) mmol/L Potassium 4.1 (3.5-5.1) mmol/L Chloride 103 (98-107) mmol/L Carbon Dioxide 28 (22-30) mmol/L BUN 16 (7-17) mg/dL Creatinine 0.89 (0.52-1.04) mg/dL Glucose 182 H (74-99) mg/dL Calcium 9.4 (8.4-10.2) mg/dL Total Bilirubin 0.4 (0.2-1.3) mg/dL AST 30 (14-36) U/L ALT 14 (4-34) U/L Alkaline Phosphatase 60 (38-126) U/L Total Protein 7.0 (6.3-8.2) g/dL Albumin 4.0 (3.5-5.0) g/dL
--- NOTE | 2020-03-25 12:33 | P.HPIM ---
History of Present Illness This is a pleasant 84 years old female with past medical history of atrial fibrillation on anticoagulation, diabetes mellitus, hypertension, hypothyroidism she was recently discharged from the hospital last month 02/09 for GI bleed, her Coumadin was resumed after she got EGD and colonoscopy where upper endoscope patient revealed mild gastritis and colonoscopy showed diverticulosis but no colorectal neoplasia. This time patient presents with abdominal pain of 2 days' duration she had similar pain about 1 week ago but it didn't last long, her pain really in the right side of the abdomen apart and lower about 10/10 in severity when she came in now is better, felt like dull pain associated with 4 times of vomiting, bile vomitus with no blood. She didn't have bowel movement or passed gas for the last 2 days. No chest pain or dyspnea Hemodynamically stable. She has mild leukocytosis of 12.7 K, rest of CBC and BMP and liver enzymes were unremarkable, urine analysis is social reasons for infection CT of the abdomen and pelvis showing dilated small bowel suggestive of partial mechanical small bowel obstruction, atelectasis EKG showing dual paced rhythm of AV node. QTC of 563. No significant ST-T changes Patient currently has an NG tube with bile draining Review of Systems CONSTITUTIONAL: No fever, no malaise, no fatigue. HEENT: No recent visual problems or hearing problems. Denied any sore throat. CARDIOVASCULAR: No orthopnea, PND, no palpitations, no syncope. PULMONARY: No shortness of breath, no cough, no hemoptysis. GASTROINTESTINAL: No diarrhea, Normoactive bowel sounds. NEUROLOGICAL: No headaches, no weakness, no numbness. HEMATOLOGICAL: Denies any bleeding or petechiae. GENITOURINARY: Denies any burning micturition, frequency, or urgency. MUSCULOSKELETAL/RHEUMATOLOGICAL: Denies any joint pain, swelling, or any muscle pain. ENDOCRINE: Denies any polyuria or polydipsia. Past Medical History Past Medical History: Atrial Fibrillation, Heart Failure, Diabetes Mellitus, GERD/Reflux, Hyperlipidemia, Hypertension, Osteoarthritis (OA), Pneumonia, Sleep Apnea/CPAP/BIPAP, Thyroid Disorder Additional Past Medical History / Comment(s): herr's esophagus. Patient reports that she is "borderline diabetic" but does not consider herself diabetic and does not take medication for this. Patient reports that she is up to date on her flu and pneumonia vaccines, but is unable to verify the exact date. 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/16, incarcerated hernia in bowel Past Anesthesia/Blood Transfusion Reactions: No Reported Reaction Type of Cardiac Device: Permanent Pacemaker Device Placement Date:: 2011 Past Psychological History: No Psychological Hx Reported Smoking Status: Never smoker Past Alcohol Use History: None Reported Past Drug Use History: None Reported - Past Family History Father Family Medical History: Myocardial Infarction ([place]) Mother Family Medical History: Osteoarthritis (OA) Medications and Allergies Home Medications Medication Instructions Recorded Confirmed Type Gabapentin [Neurontin] 200 mg PO TID 10/08/14 03/24/20 History Levothyroxine Sodium [Synthroid] 25 mcg PO HS 06/23/16 03/24/20 History Lovastatin [Mevacor] 20 mg PO HS 06/03/17 03/24/20 History Aspirin 81 mg PO DAILY 06/06/17 03/24/20 History Torsemide [Demadex] 10 mg PO DAILY 12/08/19 03/24/20 History Warfarin Sodium [Coumadin] 3 mg PO HS 12/08/19 03/24/20 History Metoprolol Tartrate [Lopressor] 12.5 mg PO BID #30 tab 02/10/20 03/24/20 Rx HYDROcodone/APAP 7.5-325MG [[place] 1 tab PO RT-TID 03/24/20 03/24/20 History 7.5-325] Omeprazole 20 mg PO BID 03/24/20 03/24/20 History Psyllium Husk 100% [Metamucil 3 gm PO BID 03/24/20 03/24/20 History Packet] Sennosides [Senna] 8.6 mg PO DAILY 03/24/20 03/24/20 History Allergies Allergy/AdvReac Type Severity Reaction Status Date / Time amoxicillin trihydrate Allergy Swelling Verified 03/24/20 21:43 [From Augmentin] ciprofloxacin [From Cipro] Allergy Swelling Verified 03/24/20 21:43 ciprofloxacin HCl Allergy Swelling Verified 03/24/20 21:43 [From Cipro] potassium clavulanate Allergy Swelling Verified 03/24/20 21:43 [From Augmentin] Sulfa (Sulfonamide Allergy Rash/Hives Verified 03/24/20 21:43 Antibiotics) Physical Exam Vitals: Vital Signs Temp Pulse Resp BP Pulse Ox 03/25/20 05:34 98.6 F 73 18 146/73 93 L 03/25/20 00:00 70 18 146/63 92 L 03/24/20 23:21 70 18 150/68 93 L 03/24/20 21:48 70 18 146/70 93 L 03/24/20 19:58 98.9 F 68 16 141/71 97 Intake and Output 03/24/20 03/25/20 03/25/20 22:59 06:59 14:59 Output Total 750 Balance -750 Output: Gastric Drainage 750 Other: Weight 58.967 kg GENERAL: The patient is alert and oriented x3, not in any acute distress. Well developed, well nourished. HEENT: Pupils are round and equally reacting to light. EOMI. No scleral icterus. No conjunctival pallor. Normocephalic, atraumatic. No pharyngeal erythema. No thyromegaly. CARDIOVASCULAR: S1 and S2 present. No murmurs, rubs, or gallops. PULMONARY: Chest is clear to auscultation, no wheezing or crackles. -ABDOMEN: Soft, periumbilical and right side tenderness, distended, no rebound tenderness or guarding felt, normoactive bowel sounds. No palpable organomegaly. MUSCULOSKELETAL: No joint swelling or deformity. EXTREMITIES: No cyanosis, clubbing, or pedal edema. NEUROLOGICAL: Gross neurological examination did not reveal any focal deficits. SKIN: No rashes. No petechiae Results CBC & Chem 7: 03/24/20 20:49 03/24/20 20:49 Labs: Abnormal Lab Results - Last 24 Hours (Table) 03/24/20 03/24/20 03/24/20 Range/Units 20:49 20:49 20:49 WBC 12.7 H (3.8-10.6) k/uL MCHC 30.0 L (31.0-37.0) g/dL Neutrophils # 11.2 H (1.3-7.7) k/uL Lymphocytes # 0.7 L (1.0-4.8) k/uL PT (9.0-12.0) sec INR (<1.2) Glucose 182 H (74-99) mg/dL Lipase 16 L (23-300) U/L Urine Appearance Cloudy H (Clear) Urine Protein Trace H (Negative) Ur Leukocyte Esterase Moderate H (Negative) Ur Squamous Epith Cells 8 H (0-4) /hpf Hyaline Casts 232 H (0-2) /lpf Urine Mucus Occasional H (None) /hpf 03/25/20 Range/Units 10:30 WBC (3.8-10.6) k/uL MCHC (31.0-37.0) g/dL Neutrophils # (1.3-7.7) k/uL Lymphocytes # (1.0-4.8) k/uL PT 28.5 H (9.0-12.0) sec INR 2.9 H (<1.2) Glucose (74-99) mg/dL Lipase (23-300) U/L Urine Appearance (Clear) Urine Protein (Negative) Ur Leukocyte Esterase (Negative) Ur Squamous Epith Cells (0-4) /hpf Hyaline Casts (0-2) /lpf Urine Mucus (None) /hpf Assessment and Plan Assessment: Small bowel obstruction possible acute urinary tract infection, versus asymptomatic bacteriuria Atrial fibrillation Diabetes mellitus Hypertension Hypothyroidism Recent history of acute GI bleed Plan: This is a pleasant 84 years old female who presents in with SBO. Continue with nothing by mouth, bowel rest, IV hydration. Surgery consult. Also we'll ask for Cardiologic consult for preop evaluation Labs and medication were reviewed.. Continue same treatment. Continue with symptomatic treatment. Resume home medication. Monitor lytes and vitals. DVT and GI prophylaxis. Further recommendations depends on the clinical course of the patient DVT prophylaxis: Subcutaneous heparin GI Prophylaxis: Ppi Prognosis is guarded
--- NOTE | 2020-03-25 14:38 | P.CRDCN ---
History of Present Illness Consult date: 03/25/20 History of present illness: CHIEF COMPLAINT: Cardiac clearance HISTORY OF PRESENT ILLNESS: This is a 84-year old female with a past medical history significant for atrial fibrillation, diabetes mellitus, hypertension, hyperlipidemia, mitral valve repair, pulmonary hypertension, and biventricular ICD placement. Patient follows with a neurosurgery physician out of [place]. She is unable to recall his name. We have been asked to see the patient in consultation for surgical clearance. Patient examined at the bedside in the ER. Patient presented with abdominal pain and was found to have a small bowel obstruction. Patient is scheduled for exploratory laparotomy tomorrow with Dr. Oliver. Patient denies chest pain or pressure. She denies shortness of breath. Denies dizziness or lightheadedness. Denies palpitations. DIAGNOSTICS: EKG reveals paced rhythm Laboratory data: WBC 12.7. Hemoglobin 11.8. Platelet count 293. INR 2.9. Sodium 139. Potassium 4.1. Current home cardiac medications include coumadin, Demadex 10 mg daily, metoprolol 12.5 mg BID, and aspirin 81 mg daily REVIEW OF SYSTEMS: At the time of my exam: CONSTITUTIONAL: Denies fever or chills. HEENT: Denies blurred vision, vision changes, or eye pain. Denies hemoptysis CARDIOVASCULAR: Denies chest pain, orthopnea, PND or palpitations RESPIRATORY: No shortness of breath. GASTROINTESTINAL: Reports abdominal pain. HEMATOLOGIC: Denies bleeding disorders. GENITOURINARY: Denies any blood in urine. SKIN: Denies pruitis. Denies rash. PHYSICAL EXAM: VITAL SIGNS: Reviewed. GENERAL: Well-developed in no acute distress. HEENT: Head is normocephalic. Pupils are equal, round. Sclerae anicteric. Mucous membranes of the mouth are moist. Neck supple. No JVD or thyromegaly LUNGS: Respirations even and unlabored. Lungs essentially clear to auscultation bilaterally. HEART: Regular rate and rhythm. S1 and S2 heard. Systolic murmur. ABDOMEN: Soft. Distended. Tenderness with palpation. EXTREMITIES: Normal range of motion. No clubbing or cyanosis. Peripheral pulses intact. No lower extremity edema NEUROLOGIC: Awake and alert. Oriented x 3. ASSESSMENT: Small bowel obstruction Chronic persistent atrial fibrillation, on long-term anticoagulation with Coumadin Hypertension Pulmonary hypertension Chronic diastolic congestive heart failure, currently euvolemic History of mitral valve repair History of biventricular ICD Diabetes mellitus, type II PLAN: Continue to hold Coumadin Patient to receive Vitamin K Monitor INR Obtain 2D echo to assess cardiac structure and function Obtain baseline CXR Patient is not in acute heart failure and has no complaints of angina Patient has no absolute contraindications to undergo surgery. She is at high risk due to age and multiple comorbidities Recommend cautious fluid administration intraoperatively Optimal blood pressure control throughout hospitalization Postoperatively, resume Coumadin as soon as cleared by surgical team Nurse practitioner note has been reviewed by physician. Signing provider agrees with the documented findings, assessment, and plan of care. Past Medical History Past Medical History: Atrial Fibrillation, Heart Failure, Diabetes Mellitus, GERD/Reflux, Hyperlipidemia, Hypertension, Osteoarthritis (OA), Pneumonia, Sleep Apnea/CPAP/BIPAP, Thyroid Disorder Additional Past Medical History / Comment(s): Pt recently admitted to [facility] acute GI bleed/had EGD and colonoscopy without cause found. 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 History of Any Multi-Drug Resistant Organisms: None Reported Past Surgical History: AICD, Cardiac Valve Replacement, Cholecystectomy, Hernia Repair, Pacemaker Additional Past Surgical History / Comment(s): 02/08/20 EGD and colonoscopy, AIC D/pacer with last time replaced in 2018 at [facility], mitral valve replaced, past surgery/bowel resection d/t strangulated hernia Past Anesthesia/Blood Transfusion Reactions: No Reported Reaction Additional Past Anesthesia/Blood Transfusion Reaction / Comment(s): Has become aggressive after surgery. Type of Cardiac Device: Permanent Pacemaker, AICD Device Placement Date:: 2018 last time Smoking Status: Never smoker - Past Family History Father Family Medical History: Myocardial Infarction ([place]) Additional Family Medical History / Comment(s): Father had a HI at the age of 75 yrs. Mother Family Medical History: Osteoarthritis (OA) Medications and Allergies Home Medications Medication Instructions Recorded Confirmed Type Gabapentin [Neurontin] 200 mg PO TID 10/08/14 03/24/20 History Levothyroxine Sodium [Synthroid] 25 mcg PO HS 06/23/16 03/24/20 History Lovastatin [Mevacor] 20 mg PO HS 06/03/17 03/24/20 History Aspirin 81 mg PO DAILY 06/06/17 03/24/20 History Torsemide [Demadex] 10 mg PO DAILY 12/08/19 03/24/20 History Warfarin Sodium [Coumadin] 3 mg PO HS 12/08/19 03/24/20 History Metoprolol Tartrate [Lopressor] 12.5 mg PO BID #30 tab 02/10/20 03/24/20 Rx HYDROcodone/APAP 7.5-325MG [[place] 1 tab PO RT-TID 03/24/20 03/24/20 History 7.5-325] Omeprazole 20 mg PO BID 03/24/20 03/24/20 History Psyllium Husk 100% [Metamucil 3 gm PO BID 03/24/20 03/24/20 History Packet] Sennosides [Senna] 8.6 mg PO DAILY 03/24/20 03/24/20 History Allergies Allergy/AdvReac Type Severity Reaction Status Date / Time amoxicillin trihydrate Allergy Swelling Verified 03/24/20 21:43 [From Augmentin] ciprofloxacin [From Cipro] Allergy Swelling Verified 03/24/20 21:43 ciprofloxacin HCl Allergy Swelling Verified 03/24/20 21:43 [From Cipro] potassium clavulanate Allergy Swelling Verified 03/24/20 21:43 [From Augmentin] Sulfa (Sulfonamide Allergy Rash/Hives Verified 03/24/20 21:43 Antibiotics) Physical Exam Vitals: Vital Signs Temp Pulse Resp BP Pulse Ox 03/25/20 05:34 98.6 F 73 18 146/73 93 L 03/25/20 00:00 70 18 146/63 92 L 03/24/20 23:21 70 18 150/68 93 L 03/24/20 21:48 70 18 146/70 93 L 03/24/20 19:58 98.9 F 68 16 141/71 97 Intake and Output 03/24/20 03/25/20 03/25/20 22:59 06:59 14:59 Output Total 750 Balance -750 Output: Gastric Drainage 750 Other: Weight 58.967 kg 58.967 kg Results 03/24/20 20:49 03/24/20 20:49 Cardiac Enzymes 03/24/20 03/24/20 Range/Units 20:49 21:12 AST 30 (14-36) U/L Troponin I <0.012 (0.000-0.034) ng/mL Coagulation 03/25/20 Range/Units 10:30 PT 28.5 H (9.0-12.0) sec CBC 03/24/20 Range/Units 20:49 WBC 12.7 H (3.8-10.6) k/uL RBC 4.22 (3.80-5.40) m/uL Hgb 11.8 D (11.4-16.0) gm/dL Hct 39.3 (34.0-46.0) % Plt Count 293 (150-450) k/uL Comprehensive Metabolic Panel 03/24/20 Range/Units 20:49 Sodium 139 (137-145) mmol/L Potassium 4.1 (3.5-5.1) mmol/L Chloride 103 (98-107) mmol/L Carbon Dioxide 28 (22-30) mmol/L BUN 16 (7-17) mg/dL Creatinine 0.89 (0.52-1.04) mg/dL Glucose 182 H (74-99) mg/dL Calcium 9.4 (8.4-10.2) mg/dL AST 30 (14-36) U/L ALT 14 (4-34) U/L Alkaline Phosphatase 60 (38-126) U/L Total Protein 7.0 (6.3-8.2) g/dL Albumin 4.0 (3.5-5.0) g/dL Current Medications Generic Name Dose Route Start Last Admin Trade Name Freq PRN Reason Stop Dose Admin Heparin Sodium (Porcine) 5,000 unit 03/26/20 09:00 Heparin Sodium,Porcine 5,000 Unit/Ml 1 Ml Vial SQ Q12HR BRAYAN Sodium Chloride 1,000 mls @ 100 mls/hr 03/24/20 22:15 03/25/20 09:24 Saline 0.9% IV 100 mls/hr .Q10H BRAYAN Administration Morphine Sulfate 4 mg 03/25/20 00:21 03/25/20 12:53 Morphine Sulfate 4 Mg/Ml Syringe IVP 4 mg Q6HR PRN Administration Pain Naloxone HCl 0.2 mg 03/24/20 23:19 Naloxone 0.4 Mg/Ml 1 Ml Vial IV Q2M PRN Opioid Reversal Ondansetron HCl 4 mg 03/25/20 09:06 03/25/20 09:23 Ondansetron 4 Mg/2 Ml Vial IVP 4 mg Q6HR PRN Administration Nausea And Vomiting Pantoprazole Sodium 40 mg 03/25/20 09:26 03/25/20 10:02 Pantoprazole 40 Mg/10 Ml Vial IVP 40 mg DAILY BRAYAN Administration Intake and Output 03/24/20 03/25/20 03/25/20 22:59 06:59 14:59 Output Total 750 Balance -750 Output: Gastric Drainage 750 Other: Weight 58.967 kg 58.967 kg Patient Weight 03/26/20 06:59 Weight 58.967 kg 03/24/20 20:49 03/24/20 20:49
[2020-03-25] MEDS ORDERED: fentaNYL (PF) 50 MCG/ML 2 ML AMP IV PRN (14:39)
[2020-03-25] MEDS ORDERED: LIDOCAINE 1% (10MG/ML) FOR IV START INTRADERMA PRN (14:39)
[2020-03-25] MEDS ORDERED: MIDAZOLAM 2 MG/2 ML VIAL IV PRN (14:39)
[2020-03-25] MEDS ORDERED: fentaNYL (PF) 50 MCG/ML 2 ML AMP IVP PRN (14:39)
[2020-03-25] MEDS ORDERED: DEXAMETHASONE SOD PHOSPHATE 10 MG/ML 1 ML VIAL IV ONE (14:39)
--- NOTE | 2020-03-25 16:49 | XR ---
EXAMINATION TYPE: XR chest 1V portable DATE OF EXAM: 03/25/2020 COMPARISON: 06/26/2019 HISTORY: CHF. TECHNIQUE: FINDINGS: Heart is enlarged. There is pulmonary vascular congestion. There is some blunting of the co stophrenic angles. There is left axillary pacemaker. There are sternal wires. There is nasogastric tu be in the stomach. IMPRESSION: Congestive heart failure with bilateral pleural effusions that is significantly increased compared to old exam.
--- NOTE | 2020-03-25 17:15 | ECHOF ---
Referral Reason:lv function MEASUREMENTS -------- HEIGHT: 170.2 cm WEIGHT: 59.0 kg BP: RVIDd: 3.1 cm (< 3.3) IVSd: 1.2 cm (0.6 - 1.1) LVIDd: 3.5 cm (3.9 - 5.3) LVPWd: 1.5 cm (0.6 - 1.1) IVSs: 1.3 cm LVIDs: 2.8 cm LVPWs: 1.2 cm LA Diam: 4.7 cm (2.7 - 3.8) LAESV Index (A-L): 31.76 ml/m Ao Diam: 2.0 cm (2.0 - 3.7) AV Cusp: 1.4 cm (1.5 - 2.6) AV maxP.59 mmHg AV maxP.59 mmHg AV meanP.57 mmHg AR PHT: 442 ms RAP: 5.00 mmHg RVSP: 70.20 mmHg FINDINGS -------- Paced rhythm. This was a technically adequate study. The left ventricular size is normal. There is mild concentric left ventricular hypertrophy. Overa ll left ventricular systolic function is low-normal with, an EF between 50 - 55 %. The right ventricle is normal in size. The left atrium is moderately dilated. LA is moderately dilated 34-39 ml/m2 The right atrial size is normal. There is moderate aortic regurgitation. There is moderate aortic stenosis present. Peak/mean grad ient across the Aortic Valve is 43.59mmHg / 20.57mmHg. 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 The peak and mean MV gradients are 14.91mmHg 5.65mmHg as measured by doppler. Mild tricuspid regurgitation present. There is moderate to severe pulmonary hypertension. The rig ht ventricular systolic pressure, as measured by Doppler, is 70.20mmHg. Trace/mild (physiologic) pulmonic regurgitation. The aortic root size is normal. There is no pericardial effusion. CONCLUSIONS -------- 1. Paced rhythm. 2. The left ventricular size is normal. 3. There is mild concentric left ventricular hypertrophy. 4. Overall left ventricular systolic function is low-normal with, an EF between 50 - 55 %. 5. The right ventricle is normal in size. 6. The left atrium is moderately dilated. 7. LA is moderately dilated 34-39 ml/m2 8. The right atrial size is normal. 9. There is moderate aortic regurgitation. 10. There is moderate aortic stenosis present. 11. Peak/mean gradient across the Aortic Valve is 43.59mmHg / 20.57mmHg. 12. The peak and mean MV gradients are 14.91mmHg 5.65mmHg as measured by doppler. 13. Mild tricuspid regurgitation present. 14. There is moderate to severe pulmonary hypertension. 15. The right ventricular systolic pressure, as measured by Doppler, is 70.20mmHg. 16. Trace/mild (physiologic) pulmonic regurgitation. 17. The aortic root size is normal. 18. There is no pericardial effusion. PIT MANAGER: Maggie Higuera RDCS
[2020-03-25] MEDS ORDERED: FUROSEMIDE 10 MG/ML 4 ML VIAL IV STA (18:16)
--- NOTE | 2020-03-26 01:12 | CONS ---
CONSULTATION ADDENDUM: Julisa is an 84-year-old lady with extensive cardiac history including biventricular ICD placement, mitral valve repair, hypertension, dyslipidemia, and atrial fibrillation who is admitted to the hospital with small bowel obstruction and we have been consulted to assess for preoperative cardiac evaluation. The patient does not have any chest pain. Does not complain of shortness of breath. An echocardiogram I performed shows normal LV systolic function, moderate aortic stenosis, regurgitation and a bioprosthetic valve in mitral position. She has severe pulmonary hypertension. Chest x-ray shows pulmonary congestion with small bilateral pleural effusions. If the patient needs an urgent life-saving surgery, proceed with it. If her small bowel obstruction can be managed conservatively, we please do so. She is at increased risk for perioperative cardiac events because of the congestive heart failure, severe pulmonary hypertension. I will give her IV Lasix. The patient is normally on Demadex at home. MMODL / IJN: [id number] /
[2020-03-26] MEDS: LACTATED RINGERS 1,000 ML IV SCH ×2 (05:12→17:14)
[2020-03-26] MEDS: SODIUM CHLORIDE 0.9% 1,000 ML IV SCH ×2 (06:09→21:36)
[2020-03-26 06:12] LABS: Basophils % (A) 0 %; Eosinophils # (A) 0.1 k/uL (0-0.7); Eosinophils % (A) 1 %; HCT 36.7 % (34.0-46.0); Hypochromasia Marked; Lymphocytes # (A) 0.6 k/uL (1.0-4.8); Lymphocytes % (A) 6 %; MCH 28.2 pg (25.0-35.0); Mean Platelet Volume 7.5; Monocytes # (A) 0.6 k/uL (0-1.0); Monocytes % (A) 6 %; Neutrophils # (A) 8.9 k/uL (1.3-7.7); Neutrophils % (A) 87 %; Platelet Count 264 k/uL (150-450); RBC 3.91 m/uL (3.80-5.40); RDW 14.8 % (11.5-15.5); WBC 10.2 k/uL (3.8-10.6)
[2020-03-26] MEDS: HEPARIN SODIUM,PORCINE 5,000 UNIT/ML 1 ML VIAL SQ SCH ×2 (07:46→21:27)
[2020-03-26] MEDS: PANTOPRAZOLE 40 MG/10 ML VIAL IVP SCH (07:46)
[2020-03-26] MEDS: MORPHINE SULFATE 4 MG/ML SYRINGE IVP PRN ×2 (07:46→17:11)
[2020-03-26] MEDS ORDERED: PANTOPRAZOLE 40 MG/10 ML VIAL IVP SCH (09:00)
--- NOTE | 2020-03-26 09:07 | XR ---
EXAMINATION TYPE: XR chest 2V DATE OF EXAM: 03/26/2020 COMPARISON: Prior chest x-ray 03/25/2020 HISTORY: Congestive heart failure TECHNIQUE: Frontal and lateral views of the chest are obtained. FINDINGS: Patient is post median sternotomy. Mitral valve replacement change is again seen. NG tube is in place. Generators present in left pectoral region, intracardiac defibrillator leads are again s een within the right atrium, right ventricle, coronary sinus region. Some minimal blunting of the pos terior costophrenic angle on the left persists, there is some improved aeration, visualization of lef t hemidiaphragm. Interstitium is mildly increased. There is no evident pneumothorax. The aorta is den se. IMPRESSION: There is some improvement in aeration, likely volume status.
[2020-03-26 10:51] LABS: INR 1.22 (0.90-1.11)
--- NOTE | 2020-03-26 12:10 | P.PN ---
Subjective Progress Note Date: 03/26/20 CHIEF COMPLAINT: Abdominal pain HISTORY OF PRESENT ILLNESS: Patient is being followed for small bowel obs truction. She still having some abdominal pain. She did pull out her NG tube twice and her IV. She currently has a sitter at bedside. She did have a chest x-ray showing evidence of congestive heart failure and was given Lasix. Echo shows an EF of 50-55% with moderate aortic regurgitation and aortic stenosis and moderate to severe pulmonary hypertension. Cardiology is following closely. White count 10.2. She's afebrile. INR 1.22. Her repeat chest x-ray had shown some improvement. At this time surgery has been canceled. PHYSICAL EXAM: VITAL SIGNS: Reviewed. GENERAL: Well-developed in no acute distress. HEENT: No sclera icterus. Extraocular movements grossly intact. Moist buccal mucosa. Head is atraumatic, normocephalic. ABDOMEN: Soft. Nondistended. Mild tenderness with palpation of the left and right lower quadrants NEUROLOGIC: Alert and oriented. Cranial nerves II through XII grossly intact. ASSESSMENT: 1. Partial mechanical small bowel obstruction 2. History of atrial fibrillation anticoagulated with Coumadin 3. History of AICD 4. History of borderline diabetes 5. Essential hypertension 6. Prior history incarcerated left femoral hernia and small bowel obstruction status post small bowel resection PLAN: -Cancel surgery today due to patient's congestive heart failure exacerbation -Appreciate cardiology recommendations -Continue to monitor patient closely -Keep NG tube in place for decompression -Keep patient nothing by mouth -Continue IV Zofran as needed for nausea -Continue pain medication as needed Physician Food Science Technician note has been reviewed by physician. Signing provider agrees with the documented findings, assessment, and plan of care. Objective - Vital Signs Vital signs: Vital Signs Temp 98.0 F 03/26/20 04:30 Pulse 85 03/26/20 04:30 Resp 16 03/26/20 04:30 BP 146/79 03/26/20 04:30 Pulse Ox 94 L 03/26/20 04:30 Intake & Output 03/25/20 03/26/20 03/26/20 18:59 06:59 18:59 Intake Total 400 Output Total 825 Balance -825 400 Weight 58.967 kg Intake: Intake, IV Titration 400 Amount Sodium Chloride 0.9% 1, 400 000 ml @ 50 mls/hr IV . Q20H [facility] Rx#:[id number] Output: Gastric Drainage 825 Other: Voiding Method Toilet Toilet # Voids 1 1 - Labs CBC & Chem 7: 03/26/20 05:22 03/24/20 20:49 Labs: Abnormal Lab Results - Last 24 Hours (Table) 03/26/20 03/26/20 Range/Units 05:22 05:22 Hgb 11.0 L (11.4-16.0) gm/dL MCHC 30.0 L (31.0-37.0) g/dL Neutrophils # 8.9 H (1.3-7.7) k/uL Lymphocytes # 0.6 L (1.0-4.8) k/uL PT 13.0 H (9.9-11.9) sec INR 1.22 H (0.90-1.11) Microbiology - Last 24 Hours (Table) 03/25/20 22:21 Urine Culture - Preliminary Urine,Voided
--- NOTE | 2020-03-26 12:14 | P.PN ---
Subjective Progress Note Date: 03/26/20 CHIEF COMPLAINT: Cardiac clearance HISTORY OF PRESENT ILLNESS: Patient examined this morning at the bedside. Chest xray completed yesterday revealed evidence of CHF. She received a one time dose of lasix 40mg IV yesterday. Repeat chest xray this morning revealed improved aeration. She denies chest pain or pressure. She denies shortness of breath. Denies dizziness or lightheadedness. Denies palpitations. INR 1.22. PHYSICAL EXAM: VITAL SIGNS: Reviewed. GENERAL: Well-developed in no acute distress. HEENT: Head is normocephalic. Pupils are equal, round. Sclerae anicteric. Mucous membranes of the mouth are moist. Neck supple. No JVD or thyromegaly LUNGS: Respirations even and unlabored. Lungs diminished. No rales noted. HEART: Regular rate and rhythm. S1 and S2 heard. Systolic murmur. ABDOMEN: Soft. Distended. Tenderness with palpation. EXTREMITIES: Normal range of motion. No clubbing or cyanosis. Peripheral pulses intact. No lower extremity edema NEUROLOGIC: Awake and alert. Oriented x 3. ASSESSMENT: Small bowel obstruction Chronic persistent atrial fibrillation, on long-term anticoagulation with Coumadin Hypertension Pulmonary hypertension Acute on chronic diastolic congestive heart failure History of mitral valve repair History of biventricular ICD Diabetes mellitus, type II PLAN: Case discussed with Dr. Oliver who states patient will require surgical intervention for her bowel obstruction Patient is high risk for surgical intervention due to age and multiple c omorbidities, but has no absolute contraindications to undergo surgery Recommend cautious fluid administration intraoperatively Optimal blood pressure control throughout hospitalization Will resume Demadex when patient is able to tolerate PO medications Postoperatively, resume Coumadin as soon as cleared by surgical team Nurse practitioner note has been reviewed by physician. Signing provider agrees with the documented findings, assessment, and plan of care. Objective - Vital Signs Vital signs: Vital Signs Temp 98.0 F 03/26/20 04:30 Pulse 85 03/26/20 04:30 Resp 16 03/26/20 04:30 BP 146/79 03/26/20 04:30 Pulse Ox 94 L 03/26/20 04:30 Intake & Output 03/25/20 03/26/20 03/26/20 18:59 06:59 18:59 Intake Total 400 Output Total 825 Balance -825 400 Weight 58.967 kg Intake: Intake, IV Titration 400 Amount Sodium Chloride 0.9% 1, 400 000 ml @ 50 mls/hr IV . Q20H [facility] Rx#:[id number] Output: Gastric Drainage 825 Other: Voiding Method Toilet Toilet # Voids 1 1 - Labs CBC & Chem 7: 03/26/20 05:22 03/24/20 20:49 Labs: Abnormal Lab Results - Last 24 Hours (Table) 03/26/20 03/26/20 Range/Units 05:22 05:22 Hgb 11.0 L (11.4-16.0) gm/dL MCHC 30.0 L (31.0-37.0) g/dL Neutrophils # 8.9 H (1.3-7.7) k/uL Lymphocytes # 0.6 L (1.0-4.8) k/uL PT 13.0 H (9.9-11.9) sec INR 1.22 H (0.90-1.11) Microbiology - Last 24 Hours (Table) 03/25/20 22:21 Urine Culture - Preliminary Urine,Voided
[2020-03-26 12:53] LABS: African American GFR (CKD) 77.9 (60.0-200.0); Albumin 3.8 g/dL (3.80-4.90); Albumin/Globulin Ratio 2.11 (1.60-3.17); Anion Gap 13.8 mmol/L (4.00-12.00); BUN/Creat Ratio 23.75 Ratio (12.00-20.00); Calcium 8.8 mg/dL (8.7-10.3); Carbon Dioxide 21.2 mmol/L (21.6-31.8); Globulin 1.8 g/dL (1.6-3.3); Magnesium 1.9 mg/dL (1.5-2.4); Non-African American GFR(CKD) 67.2 (60.0-200.0); Potassium 3.9 mmol/L (3.5-5.5); Total Bilirubin 0.4 mg/dL (0.2-1.2); Total Protein 5.6 g/dL (6.2-8.2)
[2020-03-26 13:35] VITALS: BMI 20.3
--- NOTE | 2020-03-26 19:39 | P.PN ---
Subjective This is a pleasant 84 years old female with past medical history of atrial fibrillation on anticoagulation, diabetes mellitus, hypertension, hypothyroidism she was recently discharged from the hospital last month 02/09 for GI bleed, her Coumadin was resumed after she got EGD and colonoscopy where upper endoscope patient revealed mild gastritis and colonoscopy showed diverticulosis but no colorectal neoplasia. This time patient presents with abdominal pain of 2 days' duration she had similar pain about 1 week ago but it didn't last long, her pain really in the right side of the abdomen apart and lower about 10/10 in severity when she came in now is better, felt like dull pain associated with 4 times of vomiting, bile vomitus with no blood. She didn't have bowel movement or passed gas for the last 2 days. No chest pain or dyspnea Hemodynamically stable. She has mild leukocytosis of 12.7 K, rest of CBC and BMP and liver enzymes were unremarkable, urine analysis is social reasons for infection CT of the abdomen and pelvis showing dilated small bowel suggestive of partial mechanical small bowel obstruction, atelectasis EKG showing dual paced rhythm of AV node. QTC of 563. No significant ST-T changes Patient currently has an NG tube with bile draining 03/26/2020 Patient is still nothing by mouth, abdominal pain control but no bowel movement or gas, she has minimal basilar crepitation but no leg edema and of the fluid was lowered to 50 mL/h because chest x-ray showing some vascular condition however clinically patient is breathing quietly and she saturating 93% . on room air. No dyspnea or chest pain. Echocardiogram done yesterday showing ejection fraction 50-55% with moderate to severe pulmonary hypertension She received one dose of vitamin K yesterday and her INR today is down to 1.2 .CBC, BMP and liver enzymes are unremarkable. Patient urinalysis is suspicious for infection, urine cultures pending Surgical team hold on surgery due to her CHF exacerbation. Review of Systems CONSTITUTIONAL: No fever, no malaise, no fatigue. HEENT: No recent visual problems or hearing problems. Denied any sore throat. CARDIOVASCULAR: No orthopnea, PND, no palpitations, no syncope. PULMONARY: No shortness of breath, no cough, no hemoptysis. GASTROINTESTINAL: No diarrhea, Normoactive bowel sounds. NEUROLOGICAL: No headaches, no weakness, no numbness. Active Medications Generic Name Dose Route Start Last Admin Trade Name Freq PRN Reason Stop Dose Admin Heparin Sodium (Porcine) 5,000 unit 03/26/20 09:00 03/26/20 07:46 Heparin Sodium,Porcine 5,000 Unit/Ml 1 Ml Vial SQ 5,000 unit Q12HR [facility] Administration Sodium Chloride 1,000 mls @ 50 mls/hr 03/24/20 22:15 03/26/20 06:09 Saline 0.9% IV Not Given .Q20H [facility] Lactated Ringer's 1,000 mls @ 20 mls/hr 03/25/20 14:45 03/26/20 17:14 Lactated Ringers IV Not Given .Q24H [facility] Lidocaine HCl 0.1 ml 03/25/20 14:39 Lidocaine 1% (10mg/Ml) For Iv Start INTRADERMA PER PROTOCOL PRN IV Start Morphine Sulfate 4 mg 03/25/20 00:21 03/26/20 17:11 Morphine Sulfate 4 Mg/Ml Syringe IVP 4 mg Q6HR PRN Administration Pain Naloxone HCl 0.2 mg 03/24/20 23:19 Naloxone 0.4 Mg/Ml 1 Ml Vial IV Q2M PRN Opioid Reversal Ondansetron HCl 4 mg 03/25/20 09:06 03/25/20 09:23 Ondansetron 4 Mg/2 Ml Vial IVP 4 mg Q6HR PRN Administration Nausea And Vomiting Pantoprazole Sodium 40 mg 03/25/20 09:26 03/26/20 07:46 Pantoprazole 40 Mg/10 Ml Vial IVP 40 mg DAILY [facility] Administration Objective - Vital Signs Vital signs: Vital Signs Temp 98.1 F 03/26/20 19:06 Pulse 75 03/26/20 19:06 Resp 17 03/26/20 19:06 BP 170/93 03/26/20 19:06 Pulse Ox 93 L 03/26/20 19:06 Intake & Output 03/26/20 03/26/20 03/27/20 06:59 18:59 06:59 Intake Total 400 400 Balance 400 400 Weight 58.967 kg Intake: Intake, IV Titration 400 400 Amount Sodium Chloride 0.9% 1, 400 400 000 ml @ 50 mls/hr IV . Q20H [facility] Rx#:[id number] Other: Voiding Method Toilet # Voids 1 - Labs CBC & Chem 7: 03/26/20 05:22 03/26/20 05:22 Labs: Abnormal Lab Results - Last 24 Hours (Table) 03/26/20 03/26/20 03/26/20 Range/Units 05:22 05:22 05:22 Hgb 11.0 L (11.4-16.0) gm/dL MCHC 30.0 L (31.0-37.0) g/dL Neutrophils # 8.9 H (1.3-7.7) k/uL Lymphocytes # 0.6 L (1.0-4.8) k/uL PT 13.0 H (9.9-11.9) sec INR 1.22 H (0.90-1.11) Carbon Dioxide 21.2 L (21.6-31.8) mmol/L Anion Gap 13.80 H (4.00-12.00) mmol/L BUN/Creatinine Ratio 23.75 H (12.00-20.00) Ratio Glucose 130 H (70-110) mg/dL Total Protein 5.6 L (6.2-8.2) g/dL Microbiology - Last 24 Hours (Table) 03/25/20 22:21 Urine Culture - Preliminary Urine,Voided Assessment and Plan Assessment: Small bowel obstruction Acute on chronic diastolic CHF, ejection fraction 50 to 55% possible acute urinary tract infection, versus asymptomatic bacteriuria Atrial fibrillation Diabetes mellitus Hypertension Hypothyroidism Recent history of acute GI bleed Plan: This is a pleasant 84 years old female who presents in with SBO. Continue with nothing by mouth, bowel rest, IV hydration. Surgery consult on the case they recommended to continue with conservative therapy for now. Cardiology evaluated the patient and 5 patient high-risk for surgery however there is no absolute Contra indication. Continue with cautious IV fluid administration. Resume Coumadin and Demadex after surgery. Surgery team clearance Labs and medication were reviewed.. Continue same treatment. Continue with sy mptomatic treatment. Resume home medication. Monitor lytes and vitals. DVT and GI prophylaxis. Further recommendations depends on the clinical course of the patient DVT prophylaxis Coumadin on hold, subhepatic INR , so start subcutaneous heparin GI Prophylaxis: Ppi Prognosis is guarded
[2020-03-27] MEDS: MORPHINE SULFATE 4 MG/ML SYRINGE IVP PRN ×3 (00:47→17:50)
[2020-03-27] MEDS ORDERED: NALOXONE 0.4 MG/ML 1 ML VIAL IV PRN (02:01)
[2020-03-27] MEDS ORDERED: ONDANSETRON 4 MG/2 ML VIAL IVP PRN (02:01)
[2020-03-27 07:03] LABS: Basophils % (A) 0 %; Eosinophils # (A) 0.3 k/uL (0-0.7); Eosinophils % (A) 3 %; HCT 38.7 % (34.0-46.0); HGB 11.7 gm/dL (11.4-16.0); Hypochromasia Moderate; Lymphocytes # (A) 0.8 k/uL (1.0-4.8); Lymphocytes % (A) 8 %; MCH 27.4 pg (25.0-35.0); MCHC 30.3 g/dL (31.0-37.0); MCV 90.4 fL (80.0-100.0); Mean Platelet Volume 7.3; Monocytes # (A) 0.7 k/uL (0-1.0); Monocytes % (A) 7 %; Neutrophils % (A) 80 %; Platelet Count 238 k/uL (150-450); RBC 4.28 m/uL (3.80-5.40); RDW 14.4 % (11.5-15.5)
[2020-03-27] MEDS: PANTOPRAZOLE 40 MG/10 ML VIAL IVP SCH (08:56)
[2020-03-27] MEDS: HEPARIN SODIUM,PORCINE 5,000 UNIT/ML 1 ML VIAL SQ SCH ×2 (08:56→20:07)
[2020-03-27] MEDS ORDERED: IOPAMIDOL CONTRAST (ORAL USE) VIAL PO PRN (09:10)
--- NOTE | 2020-03-27 09:13 | P.PN ---
Subjective Progress Note Date: 03/27/20 CHIEF COMPLAINT: Abdominal pain HISTORY OF PRESENT ILLNESS: Patient is being followed for small bowel obs truction. She still having some abdominal pain. She currently has a sitter at bedside. Patient has NG tube in place with 125 mL out through the night. She does report passing gas. No bowel movement. Surgery held yesterday due to congestive heart failure exacerbation. She did receive a dose of IV Lasix. Echo shows an EF of 50-55% with moderate aortic regurgitation and aortic stenosis and moderate to severe pulmonary hypertension. Cardiology is following closely. She's afebrile. WBC 10.0 INR 1.22. Her repeat chest x-ray had shown some improvement. PHYSICAL EXAM: VITAL SIGNS: Reviewed. GENERAL: Well-developed in no acute distress. HEENT: No sclera icterus. Extraocular movements grossly intact. Moist buccal mucosa. Head is atraumatic, normocephalic. ABDOMEN: Soft. Nondistended. Mild tenderness with palpation of the left and right lower quadrants NEUROLOGIC: Alert and oriented. Cranial nerves II through XII grossly intact. ASSESSMENT: 1. Partial mechanical small bowel obstruction 2. History of atrial fibrillation anticoagulated with Coumadin 3. History of AICD 4. History of borderline diabetes 5. Essential hypertension 6. Prior history incarcerated left femoral hernia and small bowel obstruction status post small bowel resection PLAN: -Check computed tomography scan of abdomen and pelvis with oral contrast and two-hour prep -Appreciate cardiology recommendations -Continue to monitor patient closely -Keep NG tube in place for decompression -Keep patient nothing by mouth -Continue IV Zofran as needed for nausea -Continue pain medication as needed -Coumadin remains on hold -Subcu heparin for DVT prophylaxis Physician Molded Goods Operator note has been reviewed by physician. Signing provider agrees with the documented findings, assessment, and plan of care. Objective - Vital Signs Vital signs: Vital Signs Temp 98.2 F 03/27/20 04:19 Pulse 69 03/27/20 04:19 Resp 16 03/27/20 04:19 BP 170/85 03/27/20 04:19 Pulse Ox 94 L 03/27/20 04:19 Intake & Output 03/26/20 03/27/20 03/27/20 18:59 06:59 18:59 Intake Total 400 150 Output Total 125 Balance 400 25 Weight 58.967 kg Intake: Intake, IV Titration 400 150 Amount Sodium Chloride 0.9% 1, 400 150 000 ml @ 50 mls/hr IV . Q20H [facility] Rx#:[id number] Output: Gastric Drainage 125 Other: Voiding Method Toilet Toilet # Voids 1 - Labs CBC & Chem 7: 03/27/20 06:35 03/26/20 05:22 Labs: Abnormal Lab Results - Last 24 Hours (Table) 03/26/20 03/26/20 03/27/20 Range/Units 05:22 05:22 06:35 MCHC 30.3 L (31.0-37.0) g/dL Neutrophils # 8.0 H (1.3-7.7) k/uL Lymphocytes # 0.8 L (1.0-4.8) k/uL PT 13.0 H (9.9-11.9) sec INR 1.22 H (0.90-1.11) Carbon Dioxide 21.2 L (21.6-31.8) mmol/L Anion Gap 13.80 H (4.00-12.00) mmol/L BUN/Creatinine Ratio 23.75 H (12.00-20.00) Ratio Glucose 130 H (70-110) mg/dL Total Protein 5.6 L (6.2-8.2) g/dL Microbiology - Last 24 Hours (Table) 03/25/20 22:21 Urine Culture - Preliminary Urine,Voided
[2020-03-27] MEDS: IOPAMIDOL CONTRAST (ORAL USE) VIAL PO PRN ×2 (10:03→11:04)
--- NOTE | 2020-03-27 10:54 | P.PN ---
Subjective Progress Note Date: 03/27/20 CHIEF COMPLAINT: Cardiac clearance HISTORY OF PRESENT ILLNESS: Patient examined this morning at the bedside. She denies chest pain or pressure. She denies shortness of breath. Denies dizziness or lightheadedness. Blood pressure elevated this morning at 170/85. PHYSICAL EXAM: VITAL SIGNS: Reviewed. GENERAL: Well-developed in no acute distress. HEENT: Head is normocephalic. Pupils are equal, round. Sclerae anicteric. Mucous membranes of the mouth are moist. Neck supple. No JVD or thyromegaly LUNGS: Respirations even and unlabored. Lungs diminished. No rales noted. HEART: Regular rate and rhythm. S1 and S2 heard. Systolic murmur. ABDOMEN: Soft. Distended. Tenderness with palpation. EXTREMITIES: Normal range of motion. No clubbing or cyanosis. Peripheral pulses intact. No lower extremity edema NEUROLOGIC: Awake and alert. Oriented x 3. ASSESSMENT: Small bowel obstruction Chronic persistent atrial fibrillation, on long-term anticoagulation with Coumadin Hypertension Pulmonary hypertension Acute on chronic diastolic congestive heart failure History of mitral valve repair History of biventricular ICD Diabetes mellitus, type II PLAN: Case discussed with Dr. Oliver. Repeat CT scan ordered to determine if patient will require surgical intervention. From a cardiology standpoint, recommend conservative management of bowel obstruction if feasible. Patient is high risk for surgical intervention due to age and multiple comorbidities, but has no absolute contraindications to undergo surgery Recommend cautious fluid administration intraoperatively Optimal blood pressure control throughout hospitalization. Will add IV hydralazine PRN secondary to NPO status. Will resume Demadex when patient is able to tolerate PO medications. Patient currently euvolemic and does not require IV lasix at this time. Will continue to monitor volume status. Postoperatively, resume Coumadin as soon as cleared by surgical team Nurse practitioner note has been reviewed by physician. Signing provider agrees with the documented findings, assessment, and plan of care. Objective - Vital Signs Vital signs: Vital Signs Temp 98.2 F 03/27/20 04:19 Pulse 69 03/27/20 04:19 Resp 16 03/27/20 04:19 BP 170/85 03/27/20 04:19 Pulse Ox 94 L 03/27/20 04:19 Intake & Output 03/26/20 03/27/20 03/27/20 18:59 06:59 18:59 Intake Total 400 150 Output Total 125 Balance 400 25 Weight 58.967 kg Intake: Intake, IV Titration 400 150 Amount Sodium Chloride 0.9% 1, 400 150 000 ml @ 50 mls/hr IV . Q20H [facility] Rx#:[id number] Output: Gastric Drainage 125 Other: Voiding Method Toilet Toilet # Voids 1 - Labs CBC & Chem 7: 03/27/20 06:35 03/26/20 05:22 Labs: Abnormal Lab Results - Last 24 Hours (Table) 03/26/20 03/26/20 03/27/20 Range/Units 05:22 05:22 06:35 MCHC 30.3 L (31.0-37.0) g/dL Neutrophils # 8.0 H (1.3-7.7) k/uL Lymphocytes # 0.8 L (1.0-4.8) k/uL PT 13.0 H (9.9-11.9) sec INR 1.22 H (0.90-1.11) Carbon Dioxide 21.2 L (21.6-31.8) mmol/L Anion Gap 13.80 H (4.00-12.00) mmol/L BUN/Creatinine Ratio 23.75 H (12.00-20.00) Ratio Glucose 130 H (70-110) mg/dL Total Protein 5.6 L (6.2-8.2) g/dL Microbiology - Last 24 Hours (Table) 03/25/20 22:21 Urine Culture - Preliminary Urine,Voided
[2020-03-27] MEDS: hydrALAZINE HCL 20 MG/ML 1 ML VIAL IVP PRN (11:22)
[2020-03-27 12:13] LABS: African American GFR (CKD) 91.6 (60.0-200.0); Albumin 3.7 g/dL (3.80-4.90); Albumin/Globulin Ratio 1.61 (1.60-3.17); Anion Gap 12.2 mmol/L (4.00-12.00); BUN/Creat Ratio 21.43 Ratio (12.00-20.00); Calcium 8.8 mg/dL (8.7-10.3); Carbon Dioxide 23.8 mmol/L (21.6-31.8); Globulin 2.3 g/dL (1.6-3.3); Potassium 3.3 mmol/L (3.5-5.5); Total Bilirubin 0.5 mg/dL (0.2-1.2)
--- NOTE | 2020-03-27 16:22 | CT ---
EXAMINATION TYPE: CT abdomen pelvis wo con DATE OF EXAM: 03/27/2020 COMPARISON: 03/24/2020 INDICATION: Generalized pain. DLP: 300.2 mGycm, Automated exposure control for dose reduction was used. CONTRAST: 0 mL of Isovue 300. Study performed with Oral Contrast TECHNIQUE: Axial images were obtained from above the diaphragm to the pubic rami in the axial plane a t 5 mm thick sections. Reconstructed images are reviewed on the computer in the coronal plane. FINDINGS: Limited CT sections are obtained the lung bases. Small bilateral pleural effusions are present. Some minimal compressive atelectasis adjacent to the left pleural effusion may be present. Dense coronary artery calcification is evident. Nasogastric tube is within the stomach. There is oral contrast within dilated small bowel loops. Oral contrast or extends to the ascending colon region. Distal colon has multiple diverticuli. No adjacen t inflammatory change suggest acute diverticulitis.. CT ABDOMEN: Liver: Normal Spleen: Normal Pancreas: Atrophic Adrenal glands: The adrenal glands are normal. Gallbladder: Normal Kidneys: No masses are evident. No hydronephrosis is present. No cysts are present. Nonobstructing renal stone may be a right renal pelvis. This may be a vascular calcification with a transverse dime nsion of 0.2 cm. Aorta: Vascular calcification is within the aorta. Inferior vena cava: Normal. CT PELVIS: Appendix: Normal as visualized. Urinary bladder: Normal. Genitourinary structures: Uterus is normal. There is a larger hypodensity on the right ovary may be i s 5.6 cm cyst. This is likely a complex cyst. Additional workup with ultrasound is recommended. Left adnexa appears within normal limits. Osseous structures: No suspicious lytic or sclerotic lesions. Degenerative changes are at L5-S1. Face t degenerative changes are present. Some scoliosis is present. IMPRESSIONS: 1. Large complex cyst posterior right hemipelvis. Additional workup with ultrasound is recommended. 2. Small bilateral pleural effusions. 3. Improving small bowel obstruction
[2020-03-27] MEDS: LACTATED RINGERS 1,000 ML IV SCH (16:35)
[2020-03-27] MEDS: SODIUM CHLORIDE 0.9% 1,000 ML IV SCH (17:44)
--- NOTE | 2020-03-27 22:47 | P.PN ---
Progress Note - Text Progress Note Date: 03/27/20 Interval history: This is a pleasant 84 years old female with past medical history of atrial fib rillation on anticoagulation, diabetes mellitus, hypertension, hypothyroidism she was recently discharged from the hospital last month 02/09 for GI bleed, her Coumadin was resumed after she got EGD and colonoscopy where upper endoscope patient revealed mild gastritis and colonoscopy showed diverticulosis but no colorectal neoplasia. This time patient presents with abdominal pain of 2 days' duration she had similar pain about 1 week ago but it didn't last long, her pain really in the right side of the abdomen apart and lower about 10/10 in severity when she came in now is better, felt like dull pain associated with 4 times of vomiting, bile vomitus with no blood. She didn't have bowel movement or passed gas for the last 2 days. No chest pain or dyspnea Admitted with small bowel obstruction. NG tube in place Today-laying in bed. NG tube in place. Some abdominal distention. Did possible flatus yesterday. IV fluids. Review of systems: Was done for constitutional, cardiovascular, GI, pulmonary. relevant finding as above Active Medications Heparin Sodium (Porcine) (Heparin Sodium,Porcine 5,000 Unit/Ml 1 Ml Vial) 5,000 unit SQ Q12HR [facility] Last Admin: 03/27/20 20:07 Dose: 5,000 unit Documented by: Hydralazine HCl (Hydralazine Hcl 20 Mg/Ml 1 Ml Vial) 10 mg IVP Q4HR PRN PRN Reason: Blood Pressure - High Last Admin: 03/27/20 11:22 Dose: 10 mg Documented by: Sodium Chloride (Saline 0.9%) 1,000 mls @ 50 mls/hr IV .Q20H [facility] Last Admin: 03/27/20 17:44 Dose: 50 mls/hr Documented by: Lactated Ringer's (Lactated Ringers) 1,000 mls @ 20 mls/hr IV .Q24H [facility] Last Admin: 03/27/20 16:35 Dose: Not Given Documented by: Lidocaine HCl (Lidocaine 1% (10mg/Ml) For Iv Start) 0.1 ml INTRADERMA PER PROTOCOL PRN PRN Reason: IV Start Morphine Sulfate (Morphine Sulfate 4 Mg/Ml Syringe) 4 mg IVP Q6HR PRN PRN Reason: Pain Last Admin: 03/27/20 17:50 Dose: 4 mg Documented by: Naloxone HCl (Naloxone 0.4 Mg/Ml 1 Ml Vial) 0.2 mg IV Q2M PRN PRN Reason: Opioid Reversal Ondansetron HCl (Ondansetron 4 Mg/2 Ml Vial) 4 mg IVP Q6HR PRN PRN Reason: Nausea And Vomiting Last Admin: 03/27/20 12:51 Dose: 4 mg Documented by: Pantoprazole Sodium (Pantoprazole 40 Mg/10 Ml Vial) 40 mg IVP DAILY [facility] Last Admin: 03/27/20 08:56 Dose: 40 mg Documented by: On examination: VITAL SIGNS: 98.1, 73, 17, 136/63, 94% on room air GENERAL APPEARANCE: Laying in bed, awake. HEENT: Normal external appearance of nose and ear. Oral cavity-dry, NG tube EYES: Pupils equal. Conjunctiva normal. NECK: JVD not raised. Mass not palpable. RESPIRATORY: Respiratory effort normal. Lungs clear to auscultation. CARDIOVASCULAR: First and second sounds normal. No edema. ABDOMEN: Soft. Mild tenderness. No guarding rigidity Slightly distended, hyperactive bowel sounds Liver and spleen not palpable. No tenderness. No mass palpable. PSYCHIATRY: Alert and oriented x3. Mood and affect normal. INVESTIGATIONS, reviewed in the clinical context: White count 10 hemoglobin 11.7 platelets 238 potassium 3.3 creatinine 0.7 Computed tomography scan of the abdomen and pelvis-large complex cyst posterior right hemipelvis, improving small bowel obstruction Assessment: -Small bowel obstruction, with NG tube, with some clinical and radiological improvement -Right adnexa cyst 5.6 cm -Persistent atrial fibrillation -Diabetic mellitus type II -GERD -Hyperlipidemia -Essential hypertension -Primary osteoarthritis -Obstructive sleep apnea mitral valve replacement -Moderate to severe pulmonary hypertension -AICD/pacemaker -Obstructive sleep apnea uses a CPAP -Hudson's esophagus Plan: Will increase patient's IV fluids for now. Cardiology is ordered hydralazine for blood pressure control. We will change Synthroid to IV. We'll resume her by mouth medications with some interruption of the NG suction.
[2020-03-28] MEDS: MORPHINE SULFATE 4 MG/ML SYRINGE IVP PRN ×2 (04:24→18:21)
[2020-03-28 06:17] LABS: Basophils % (A) 0 %; Eosinophils # (A) 0.1 k/uL (0-0.7); Eosinophils % (A) 1 %; HCT 36.3 % (34.0-46.0); HGB 11.2 gm/dL (11.4-16.0); Hypochromasia Moderate; Lymphocytes # (A) 0.5 k/uL (1.0-4.8); Lymphocytes % (A) 6 %; MCH 27.8 pg (25.0-35.0); MCHC 30.7 g/dL (31.0-37.0); MCV 90.5 fL (80.0-100.0); Mean Platelet Volume 7.4; Monocytes # (A) 0.6 k/uL (0-1.0); Monocytes % (A) 6 %; Neutrophils # (A) 8.1 k/uL (1.3-7.7); Neutrophils % (A) 87 %; Platelet Count 246 k/uL (150-450); RBC 4.01 m/uL (3.80-5.40); RDW 14.3 % (11.5-15.5); WBC 9.3 k/uL (3.8-10.6)
[2020-03-28] MEDS: HEPARIN SODIUM,PORCINE 5,000 UNIT/ML 1 ML VIAL SQ SCH (07:48)
[2020-03-28] MEDS: PANTOPRAZOLE 40 MG/10 ML VIAL IVP SCH (07:48)
[2020-03-28] MEDS: METOPROLOL TARTRATE 12.5 MG TAB PO SCH ×2 (07:48→19:43)
[2020-03-28] MEDS: GABAPENTIN 100 MG CAP PO SCH ×3 (07:48→21:48)
[2020-03-28] MEDS ORDERED: POTASSIUM CHLORIDE ER 20 MEQ TAB.ER PO STA (08:09)
[2020-03-28 09:12] LABS: INR 1.02 (0.90-1.11); Prothrombin Time 10.9 sec (9.9-11.9)
[2020-03-28 09:30] LABS: African American GFR (CKD) 91.6 (60.0-200.0); Albumin 3.4 g/dL (3.80-4.90); Albumin/Globulin Ratio 1.7 (1.60-3.17); Anion Gap 12.9 mmol/L (4.00-12.00); Calcium 8.6 mg/dL (8.7-10.3); Carbon Dioxide 22.1 mmol/L (21.6-31.8); Potassium 3.4 mmol/L (3.5-5.5); Total Bilirubin 0.5 mg/dL (0.3-1.2); Total Protein 5.4 g/dL (6.2-8.2)
[2020-03-28] MEDS ORDERED: HEPARIN SODIUM,PORCINE 5,000 UNIT/ML 1 ML VIAL IV ONE (12:51)
[2020-03-28] MEDS ORDERED: HEPARIN SODIUM,PORCINE 5,000 UNIT/ML 1 ML VIAL IV PRN (12:51)
--- NOTE | 2020-03-28 13:11 | P.PN ---
Subjective Progress Note Date: 03/28/20 CHIEF COMPLAINT: Abdominal pain HISTORY OF PRESENT ILLNESS: Patient is being followed for small bowel obs truction. Patient reports improvement in her abdominal pain. She still has some tenderness on the right side. She had passed gas yesterday. No bowel movement. Denies any nausea. Computed tomography scan of the abdomen and pelvis shows improving small bowel obstruction. It did know a large complex cyst on the right ovary. Patient is afebrile. White count 9.3. Potassium 3.4 PHYSICAL EXAM: VITAL SIGNS: Reviewed. GENERAL: Well-developed in no acute distress. HEENT: No sclera icterus. Extraocular movements grossly intact. Moist buccal mucosa. Head is atraumatic, normocephalic. ABDOMEN: Soft. Nondistended. Mild tenderness with palpation of the left and right lower quadrants NEUROLOGIC: Alert and oriented. Cranial nerves II through XII grossly intact. ASSESSMENT: 1. Partial mechanical small bowel obstruction showing improvement on computed tomography scan 2. History of atrial fibrillation anticoagulated with Coumadin at home 3. History of AICD 4. History of borderline diabetes 5. Essential hypertension 6. Prior history incarcerated left femoral hernia and small bowel obstruction status post small bowel resection 7. Acute on chronic diastolic congestive heart failure exacerbation followed by cardiology PLAN: -NG tube discontinued today -Start patient on clear liquid diet -Coumadin remains on hold -Subcu heparin for DVT prophylaxis Physician Senior Process Analyst note has been reviewed by physician. Signing provider agrees with the documented findings, assessment, and plan of care. Objective - Vital Signs Vital signs: Vital Signs Temp 98.3 F 03/28/20 11:40 Pulse 70 03/28/20 11:40 Resp 18 03/28/20 11:40 BP 176/84 03/28/20 11:40 Pulse Ox 93 L 03/28/20 11:40 Intake & Output 03/27/20 03/28/20 03/28/20 18:59 06:59 18:59 Intake Total 400 Output Total 150 100 Balance 250 -100 Intake: Intake, IV Titration 400 Amount Sodium Chloride 0.9% 1, 400 000 ml @ 50 mls/hr IV . Q20H [facility] Rx#:[id number] Output: Gastric Drainage 150 100 Other: Voiding Method Toilet # Voids 3 1 - Labs CBC & Chem 7: 03/28/20 05:31 03/28/20 05:31 Labs: Abnormal Lab Results - Last 24 Hours (Table) 03/28/20 03/28/20 Range/Units 05:31 05:31 Hgb 11.2 L (11.4-16.0) gm/dL MCHC 30.7 L (31.0-37.0) g/dL Neutrophils # 8.1 H (1.3-7.7) k/uL Lymphocytes # 0.5 L (1.0-4.8) k/uL Potassium 3.4 L (3.5-5.5) mmol/L Anion Gap 12.90 H (4.00-12.00) mmol/L Calcium 8.6 L (8.7-10.3) mg/dL Total Protein 5.4 L (6.2-8.2) g/dL Albumin 3.40 L (3.80-4.90) g/dL Microbiology - Last 24 Hours (Table) 03/25/20 22:21 Urine Culture - Final Urine,Voided
--- NOTE | 2020-03-28 13:13 | P.PN ---
Subjective Progress Note Date: 03/28/20 CHIEF COMPLAINT: Cardiac clearance HISTORY OF PRESENT ILLNESS: Patient examined this morning at the bedside. She denies chest pain or pressure. She denies shortness of breath. Denies dizziness or lightheadedness. NG tube has been discontinued and patient has been started on clear liquid diet. Blood pressure remains elevated today. PHYSICAL EXAM: VITAL SIGNS: Reviewed. GENERAL: Well-developed in no acute distress. HEENT: Head is normocephalic. Pupils are equal, round. Sclerae anicteric. Mucous membranes of the mouth are moist. Neck supple. No JVD or thyromegaly LUNGS: Respirations even and unlabored. Lungs diminished. No rales noted. HEART: Regular rate and rhythm. S1 and S2 heard. Systolic murmur. ABDOMEN: Soft. Distended. Tenderness with palpation. EXTREMITIES: Normal range of motion. No clubbing or cyanosis. Peripheral p ulses intact. No lower extremity edema NEUROLOGIC: Awake and alert. Oriented x 3. ASSESSMENT: Small bowel obstruction Chronic persistent atrial fibrillation, on long-term anticoagulation with Coumadin Hypertension Pulmonary hypertension Acute on chronic diastolic congestive heart failure History of mitral valve repair History of biventricular ICD Diabetes mellitus, type II PLAN: NG tube has been removed and patient is able to take PO medicaitons Resume Demadex Begin Lisinopril 5mg daily for uncontrolled hypertension Patients SBO appears to be resolving with conservative measures. Case discussed with Dr. Oliver. He does not want Coumadin resumed today in case patient requires surgical intervention over the weekend. Will initiate heparin drip at this time. Resume Coumadin when cleared by Dr. Oliver. Nurse practitioner note has been reviewed by physician. Signing provider agrees with the documented findings, assessment, and plan of care. Objective - Vital Signs Vital signs: Vital Signs Temp 98.3 F 03/28/20 11:40 Pulse 70 03/28/20 11:40 Resp 18 03/28/20 11:40 BP 176/84 03/28/20 11:40 Pulse Ox 93 L 03/28/20 11:40 Intake & Output 03/27/20 03/28/20 03/28/20 18:59 06:59 18:59 Intake Total 400 Output Total 150 100 Balance 250 -100 Intake: Intake, IV Titration 400 Amount Sodium Chloride 0.9% 1, 400 000 ml @ 50 mls/hr IV . Q20H [facility] Rx#:[id number] Output: Gastric Drainage 150 100 Other: Voiding Method Toilet # Voids 3 1 - Labs CBC & Chem 7: 03/28/20 05:31 03/28/20 05:31 Labs: Abnormal Lab Results - Last 24 Hours (Table) 03/28/20 03/28/20 Range/Units 05:31 05:31 Hgb 11.2 L (11.4-16.0) gm/dL MCHC 30.7 L (31.0-37.0) g/dL Neutrophils # 8.1 H (1.3-7.7) k/uL Lymphocytes # 0.5 L (1.0-4.8) k/uL Potassium 3.4 L (3.5-5.5) mmol/L Anion Gap 12.90 H (4.00-12.00) mmol/L Calcium 8.6 L (8.7-10.3) mg/dL Total Protein 5.4 L (6.2-8.2) g/dL Albumin 3.40 L (3.80-4.90) g/dL Microbiology - Last 24 Hours (Table) 03/25/20 22:21 Urine Culture - Final Urine,Voided
[2020-03-28] MEDS: lisinopriL 5 MG TAB PO SCH (13:24)
[2020-03-28] MEDS: HEPARIN SOD,PORK IN 0.45% NACL 25,000 UNIT in 0.45% NACL 1 250ML.BAG IV SCH (14:57)
[2020-03-28] MEDS: LACTATED RINGERS 1,000 ML IV SCH (15:01)
[2020-03-28] MEDS: SODIUM CHLORIDE 0.9% 1,000 ML IV SCH (15:54)
[2020-03-28] MEDS: LEVOTHYROXINE 25 MCG TAB PO SCH (19:43)
--- NOTE | 2020-03-28 21:26 | P.PN ---
Progress Note - Text Progress Note Date: 03/28/20 Interval history: This is a pleasant 84 years old female with past medical history of atrial fib rillation on anticoagulation, diabetes mellitus, hypertension, hypothyroidism she was recently discharged from the hospital last month 02/09 for GI bleed, her Coumadin was resumed after she got EGD and colonoscopy where upper endoscope patient revealed mild gastritis and colonoscopy showed diverticulosis but no colorectal neoplasia. This time patient presents with abdominal pain of 2 days' duration she had similar pain about 1 week ago but it didn't last long, her pain really in the right side of the abdomen apart and lower about 10/10 in severity when she came in now is better, felt like dull pain associated with 4 times of vomiting, bile vomitus with no blood. She didn't have bowel movement or passed gas for the last 2 days. No chest pain or dyspnea Admitted with small bowel obstruction. NG tube in place. Today-NG tube discontinued earlier today. Possible cellulitis. No nausea vomiting. Abdomen less distended. Review of systems: Was done for constitutional, cardiovascular, GI, pulmonary. relevant finding as above Active Medications Gabapentin (Gabapentin 100 Mg Cap) 200 mg PO TID [facility] Last Admin: 03/28/20 15:53 Dose: 200 mg Documented by: Heparin Sodium (Porcine) (Heparin Sodium,Porcine 5,000 Unit/Ml 1 Ml Vial) 0 unit IV PER PROTOCOL PRN; Protocol PRN Reason: Low PTT Hydralazine HCl (Hydralazine Hcl 20 Mg/Ml 1 Ml Vial) 10 mg IVP Q4HR PRN PRN Reason: Blood Pressure - High Last Admin: 03/27/20 11:22 Dose: 10 mg Documented by: Sodium Chloride (Saline 0.9%) 1,000 mls @ 50 mls/hr IV .Q20H [facility] Last Admin: 03/28/20 15:54 Dose: 50 mls/hr Documented by: Lactated Ringer's (Lactated Ringers) 1,000 mls @ 20 mls/hr IV .Q24H [facility] Last Admin: 03/28/20 15:01 Dose: Not Given Documented by: Heparin Sodium/Sodium Chloride (25,000 unit/ Sodium Chloride) 250 mls @ 7.076 mls/hr IV .Q24H [facility]; Protocol Last Admin: 03/28/20 14:57 Dose: 11.99 units/kg/hr, 7.07 mls/hr Documented by: Levothyroxine Sodium (Levothyroxine 25 Mcg Tab) 25 mcg PO HS [facility] Last Admin: 03/28/20 19:43 Dose: 25 mcg Documented by: Lidocaine HCl (Lidocaine 1% (10mg/Ml) For Iv Start) 0.1 ml INTRADERMA PER PROTOCOL PRN PRN Reason: IV Start Lisinopril (Lisinopril 5 Mg Tab) 5 mg PO DAILY [facility] Last Admin: 03/28/20 13:24 Dose: 5 mg Documented by: Metoprolol Tartrate (Metoprolol Tartrate 12.5 Mg Tab) 12.5 mg PO BID [facility] Last Admin: 03/28/20 19:43 Dose: 12.5 mg Documented by: Morphine Sulfate (Morphine Sulfate 4 Mg/Ml Syringe) 4 mg IVP Q6HR PRN PRN Reason: Pain Last Admin: 03/28/20 18:21 Dose: 4 mg Documented by: Naloxone HCl (Naloxone 0.4 Mg/Ml 1 Ml Vial) 0.2 mg IV Q2M PRN PRN Reason: Opioid Reversal Ondansetron HCl (Ondansetron 4 Mg/2 Ml Vial) 4 mg IVP Q6HR PRN PRN Reason: Nausea And Vomiting Last Admin: 03/27/20 12:51 Dose: 4 mg Documented by: Pantoprazole Sodium (Pantoprazole 40 Mg/10 Ml Vial) 40 mg IVP DAILY [facility] Last Admin: 03/28/20 07:48 Dose: 40 mg Documented by: Torsemide (Torsemide 20 Mg Tab) 10 mg PO DAILY [facility] On examination: VITAL SIGNS: 98.3, 70, 18, 176/84, 93% on room air GENERAL APPEARANCE: Laying in bed, awake. HEENT: Normal external appearance of nose and ear. Oral cavity-dry, NG tube EYES: Pupils equal. Conjunctiva normal. NECK: JVD not raised. Mass not palpable. RESPIRATORY: Respiratory effort normal. Lungs clear to auscultation. CARDIOVASCULAR: First and second sounds normal. No edema. ABDOMEN: Soft. Mild tenderness. No guarding rigidity decreased distention, bowel sounds present, Liver and spleen not palpable.. PSYCHIATRY: Alert and oriented x3. Mood and affect normal. INVESTIGATIONS, reviewed in the clinical context: White count 9.3 hemoglobin 11.2 potassium 3.4 creatinine 0.7 Previous testing White count 10 hemoglobin 11.7 platelets 238 potassium 3.3 creatinine 0.7 Computed tomography scan of the abdomen and pelvis-large complex cyst posterior right hemipelvis, improving small bowel obstruction Assessment: -Small bowel obstruction, with NG tube, with some clinical and radiological improvement-NG tube removed -Right adnexa cyst 5.6 cm-for follow further up -Persistent atrial fibrillation -Diabetic mellitus type II -GERD -Hyperlipidemia -Essential hypertension -Primary osteoarthritis -Obstructive sleep apnea mitral valve replacement -Moderate to severe pulmonary hypertension -AICD/pacemaker -Obstructive sleep apnea uses a CPAP -Hudson's esophagus Plan: NG tube discontinued earlier by surgery. Started on clear liquids. May resume oral antihypertensives. Patient encouraged to be out of bed. Resume Coumadin tonight.
[2020-03-28] MEDS ORDERED: NON FORMULARY DRUG (Warfarin Sodium [Coumadin] 6 MG Tablet) PO SCH (21:30)
[2020-03-28] MEDS: PANTOPRAZOLE 40 MG TABLET PO SCH (21:47)
[2020-03-28] MEDS: ATORVASTATIN 10 MG TAB PO SCH (21:47)
[2020-03-28] MEDS: hydrALAZINE HCL 20 MG/ML 1 ML VIAL IVP PRN (21:48)
[2020-03-28] MEDS: WARFARIN 3 MG TAB PO SCH (22:01)
[2020-03-29 06:08] LABS: Basophils % (A) 0 %; Eosinophils # (A) 0.3 k/uL (0-0.7); Eosinophils % (A) 3 %; HCT 38.6 % (34.0-46.0); HGB 11.8 gm/dL (11.4-16.0); Hypochromasia Moderate; Lymphocytes # (A) 0.7 k/uL (1.0-4.8); Lymphocytes % (A) 9 %; MCH 27.6 pg (25.0-35.0); MCHC 30.6 g/dL (31.0-37.0); MCV 90.3 fL (80.0-100.0); Mean Platelet Volume 7.3; Monocytes # (A) 0.7 k/uL (0-1.0); Monocytes % (A) 9 %; Neutrophils # (A) 6.5 k/uL (1.3-7.7); Neutrophils % (A) 78 %; Platelet Count 257 k/uL (150-450); RBC 4.28 m/uL (3.80-5.40); RDW 14.5 % (11.5-15.5); WBC 8.4 k/uL (3.8-10.6)
[2020-03-29] MEDS: TORSEMIDE 20 MG TAB PO SCH (07:53)
[2020-03-29] MEDS: GABAPENTIN 100 MG CAP PO SCH ×3 (07:53→21:34)
[2020-03-29] MEDS: lisinopriL 5 MG TAB PO SCH (07:53)
[2020-03-29] MEDS: METOPROLOL TARTRATE 12.5 MG TAB PO SCH ×2 (07:53→19:55)
[2020-03-29] MEDS: PANTOPRAZOLE 40 MG TABLET PO SCH ×2 (07:53→19:55)
[2020-03-29] MEDS: SODIUM CHLORIDE 0.9% 1,000 ML IV SCH (07:56)
[2020-03-29 09:29] LABS: INR 1.08 (0.90-1.11); Prothrombin Time 11.5 sec (9.9-11.9)
--- NOTE | 2020-03-29 09:41 | P.PN ---
Progress Note - Text Progress Note Date: 03/29/20 The patient feels better. She is tolerating clear liquids. She denies any significant abdominal pain. On exam vital signs are stable. Abdomen soft. Resolving small bowel obstruction. Patient will have her diet advanced.
[2020-03-29] MEDS ORDERED: HEPARIN SODIUM,PORCINE 5,000 UNIT/ML 1 ML VIAL IV STA (13:24)
--- NOTE | 2020-03-29 15:39 | P.PN ---
Subjective Progress Note Date: 03/29/20 This is a pleasant 84-year-old female patient who presented with small bowel obstruction. She does have a history of paroxysmal atrial fibrillation and has been anticoagulated with Coumadin the past. She also has a history of diabetes mellitus, hypertension, hyperlipidemia, mitral valve replacement, pulmonary hypertension, and biventricular ICD for history of cardiomyopathy. Patient initially had NG tube however this was removed and the patient has been started on a diet for which she had full liquids at lunchtime. We are following with the patient due to anticoagulation. She is currently being maintained on a heparin drip. She is overall feeling a bit better. She does have some abdominal tenderness to palpation. No nausea, vomiting. 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 Objective - Vital Signs Vital signs: Vital Signs Temp 97.4 F L 03/29/20 04:19 Pulse 70 03/29/20 08:00 Resp 17 03/29/20 08:00 BP 154/78 03/29/20 04:19 Pulse Ox 95 03/29/20 11:17 Intake & Output 03/28/20 03/29/20 03/29/20 18:59 06:59 18:59 Intake Total 480 680 158.957 Balance 480 680 158.957 Weight 58.967 kg Intake: Intake, IV Titration 200 158.957 Amount Heparin Sod,Pork in 0.45% 158.957 NaCl 25,000 unit In 0.45 % NaCl 1 250ml.bag @ 12 UNITS/KG/HR 7.076 mls/hr IV .Q24H [facility] Rx#: [id number] Sodium Chloride 0.9% 1, 200 000 ml @ 50 mls/hr IV . Q20H [facility] Rx#:[id number] Oral 480 480 Other: Voiding Method Toilet Toilet # Voids 1 1 1 - Exam PHYSICAL EXAMINATION: HEENT: Head is atraumatic, normocephalic. Pupils equal, round. Neck is supple. There is no elevated jugular venous pressure. HEART EXAMINATION: Heart sounds regular, S1 and S2 with a systolic murmur. CHEST EXAMINATION: Lungs are clear to auscultation. No chest wall tenderness is noted on palpation or with deep breathing. ABDOMEN: Soft, distended, tenderness with light palpation. EXTREMITIES: 2+ peripheral pulses with no evidence of peripheral edema and no calf tenderness noted. NEUROLOGIC patient is awake, alert and oriented x3. . - Labs CBC & Chem 7: 03/29/20 05:35 03/28/20 05:31 Labs: Abnormal Lab Results - Last 24 Hours (Table) 03/28/20 03/29/20 03/29/20 Range/Units 20:29 05:35 12:31 MCHC 30.6 L (31.0-37.0) g/dL Lymphocytes # 0.7 L (1.0-4.8) k/uL APTT 54.0 H 34.9 H (22.0-30.0) sec Assessment and Plan Assessment: Small bowel obstruction Paroxysmal atrial fibrillation Cardiomyopathy status post biventricular AICD Status post mitral valve replacement Hypertension Plan: From cardiology's perspective medications reviewed and we will continue the same. Continue IV heparin and resume Coumadin once okayed by surgery. We'll continue to follow patient by further recommendations accordingly. CHIEF TALENT OFFICER note has been reviewed, I agree with a documented findings and plan of care. Patient was seen and examined.
[2020-03-29] MEDS: HEPARIN SOD,PORK IN 0.45% NACL 25,000 UNIT in 0.45% NACL 1 250ML.BAG IV SCH (17:32)
[2020-03-29] MEDS: LACTATED RINGERS 1,000 ML IV SCH (17:33)
[2020-03-29] MEDS: WARFARIN 3 MG TAB PO SCH (17:42)
--- NOTE | 2020-03-29 19:27 | P.DS ---
Providers Date of admission: 03/24/20 22:51 Expected date of discharge: 03/29/20 Attending physician: Tashi Garcia Consults: 03/24/20 23:19 Consult Physician Stat Consulting Provider: Marco A Oliver Consult Reason/Comments: small bowel obstruction Do you want consulting provider notified?: Yes 03/25/20 11:49 Consult Physician Routine Consulting Provider: Daphney Cota Consult Reason/Comments: Cardiac clearance Do you want consulting provider notified?: Yes Primary care physician: Rashawn [facility] Course: Interval history: This is a pleasant 84 years old female with past medical history of atrial fibrillation on anticoagulation, diabetes mellitus, hypertension, hypothyroidism she was recently discharged from the hospital last month 02/09 for GI bleed, her Coumadin was resumed after she got EGD and colonoscopy where upper endoscope patient revealed mild gastritis and colonoscopy showed diverticulosis but no colorectal neoplasia. This time patient presents with abdominal pain of 2 days' duration she had similar pain about 1 week ago but it didn't last long, her pain really in the right side of the abdomen apart and lower about 10/10 in severity when she came in now is better, felt like dull pain associated with 4 times of vomiting, bile vomitus with no blood. She didn't have bowel movement or passed gas for the last 2 days. No chest pain or dyspnea Admitted with small bowel obstruction. NG tube in place. Did pass flatus and bowel movement. NG tube discontinued. Today-on clear liquids. Feeling better. Has passed no flatus and bowel move ment. Decreased abdominal pain. Review of systems: Was done for constitutional, cardiovascular, GI, pulmonary. relevant finding as above Active Medications Atorvastatin Calcium (Atorvastatin 10 Mg Tab) 10 mg PO HS [facility] Last Admin: 03/28/20 21:47 Dose: 10 mg Documented by: Gabapentin (Gabapentin 100 Mg Cap) 200 mg PO TID [facility] Last Admin: 03/29/20 17:33 Dose: 200 mg Documented by: Heparin Sodium (Porcine) (Heparin Sodium,Porcine 5,000 Unit/Ml 1 Ml Vial) 0 unit IV PER PROTOCOL PRN; Protocol PRN Reason: Low PTT Hydralazine HCl (Hydralazine Hcl 20 Mg/Ml 1 Ml Vial) 10 mg IVP Q4HR PRN PRN Reason: Blood Pressure - High Last Admin: 03/28/20 21:48 Dose: 10 mg Documented by: Sodium Chloride (Saline 0.9%) 1,000 mls @ 50 mls/hr IV .Q20H [facility] Last Admin: 03/29/20 07:56 Dose: 50 mls/hr Documented by: Lactated Ringer's (Lactated Ringers) 1,000 mls @ 20 mls/hr IV .Q24H [facility] Last Admin: 03/29/20 17:33 Dose: Not Given Documented by: Heparin Sodium/Sodium Chloride (25,000 unit/ Sodium Chloride) 250 mls @ 7.076 mls/hr IV .Q24H [facility]; Protocol Last Admin: 03/29/20 17:32 Dose: 14.99 units/kg/hr, 8.839 mls/hr Documented by: Levothyroxine Sodium (Levothyroxine 25 Mcg Tab) 25 mcg PO HS [facility] Last Admin: 03/28/20 19:43 Dose: 25 mcg Documented by: Lidocaine HCl (Lidocaine 1% (10mg/Ml) For Iv Start) 0.1 ml INTRADERMA PER PROTOCOL PRN PRN Reason: IV Start Lisinopril (Lisinopril 5 Mg Tab) 5 mg PO DAILY [facility] Last Admin: 03/29/20 07:53 Dose: 5 mg Documented by: Metoprolol Tartrate (Metoprolol Tartrate 12.5 Mg Tab) 12.5 mg PO BID [facility] Last Admin: 03/29/20 07:53 Dose: 12.5 mg Documented by: Miscellaneous Information (Warfarin Per Pharmacy) 1 each MISCELLANE DIRECTED PRN PRN Reason: Per Protocol Morphine Sulfate (Morphine Sulfate 4 Mg/Ml Syringe) 4 mg IVP Q6HR PRN PRN Reason: Pain Last Admin: 03/28/20 18:21 Dose: 4 mg Documented by: Naloxone HCl (Naloxone 0.4 Mg/Ml 1 Ml Vial) 0.2 mg IV Q2M PRN PRN Reason: Opioid Reversal Ondansetron HCl (Ondansetron 4 Mg/2 Ml Vial) 4 mg IVP Q6HR PRN PRN Reason: Nausea And Vomiting Last Admin: 03/27/20 12:51 Dose: 4 mg Documented by: Pantoprazole Sodium (Pantoprazole 40 Mg Tablet) 40 mg PO BID [facility] Last Admin: 03/29/20 07:53 Dose: 40 mg Documented by: Torsemide (Torsemide 20 Mg Tab) 10 mg PO DAILY [facility] Last Admin: 03/29/20 07:53 Dose: 10 mg Documented by: Warfarin Sodium (Warfarin 3 Mg Tab) 3 mg PO DAILY@1800 [facility]; Protocol Last Admin: 03/29/20 17:42 Dose: 3 mg Documented by: On examination: VITAL SIGNS: 97.9, 70, 18, 121/67, 97% on room air GENERAL APPEARANCE: Laying in bed, awake. HEENT: Normal external appearance of nose and ear. Oral cavity-dry, NG tube- removed EYES: Pupils equal. Conjunctiva normal. NECK: JVD not raised. Mass not palpable. RESPIRATORY: Respiratory effort normal. Lungs clear to auscultation. CARDIOVASCULAR: First and second sounds normal. No edema. ABDOMEN: Soft. Mild tenderness. No guarding rigidity decreased distention, bowel sounds present, Liver and spleen not palpable.. PSYCHIATRY: Alert and oriented x3. Mood and affect normal. INVESTIGATIONS, reviewed in the clinical context: White count 8.4 hemoglobin 11.8 Previous testing White count 10 hemoglobin 11.7 platelets 238 potassium 3.3 creatinine 0.7 Computed tomography scan of the abdomen and pelvis-large complex cyst posterior right hemipelvis, improving small bowel obstruction Assessment: -Small bowel obstruction, with NG tube, with some clinical and radiological improvement-NG tube removed -Right adnexa cyst 5.6 cm-for follow further up -Persistent atrial fibrillation -Diabetic mellitus type II -GERD -Hyperlipidemia -Essential hypertension -Primary osteoarthritis -Obstructive sleep apnea mitral valve replacement -Moderate to severe pulmonary hypertension -AICD/pacemaker -Obstructive sleep apnea uses a CPAP -Hudson's esophagus Plan: Patient is on clear liquids. Diet to be advanced if okay with surgery. A lot of the patient sit up in a chair and ambulate with assistance Patient Condition at Discharge: Stable Plan - Discharge Summary Discharge Rx Participant: No New Discharge Prescriptions: No Action Gabapentin [Neurontin] 200 mg PO TID Levothyroxine Sodium [Synthroid] 25 mcg PO HS Lovastatin [Mevacor] 20 mg PO HS Aspirin 81 mg PO DAILY Torsemide [Demadex] 10 mg PO DAILY Warfarin Sodium [Coumadin] 3 mg PO HS Metoprolol Tartrate [Lopressor] 12.5 mg PO BID #30 tab HYDROcodone/APAP 7.5-325MG [[place] 7.5-325] 1 tab PO RT-TID Psyllium Husk 100% [Metamucil Packet] 3 gm PO BID Omeprazole 20 mg PO BID Sennosides [Senna] 8.6 mg PO DAILY Discharge Medication List Gabapentin [Neurontin] 200 mg PO TID 10/08/14 [History] Levothyroxine Sodium [Synthroid] 25 mcg PO HS 06/23/16 [History] Lovastatin [Mevacor] 20 mg PO HS 06/03/17 [History] Aspirin 81 mg PO DAILY 06/06/17 [History] Torsemide [Demadex] 10 mg PO DAILY 12/08/19 [History] Warfarin Sodium [Coumadin] 3 mg PO HS 12/08/19 [History] Metoprolol Tartrate [Lopressor] 12.5 mg PO BID #30 tab 02/10/20 [Rx] HYDROcodone/APAP 7.5-325MG [[place] 7.5-325] 1 tab PO RT-TID 03/24/20 [History] Omeprazole 20 mg PO BID 03/24/20 [History] Psyllium Husk 100% [Metamucil Packet] 3 gm PO BID 03/24/20 [History] Sennosides [Senna] 8.6 mg PO DAILY 03/24/20 [History] Follow up Appointment(s)/Referral(s): Rashawn Farah MD [Primary Care Provider] - 1-2 days
[2020-03-29] MEDS: LEVOTHYROXINE 25 MCG TAB PO SCH (19:55)
[2020-03-29] MEDS: ATORVASTATIN 10 MG TAB PO SCH (19:55)
[2020-03-29] MEDS: MORPHINE SULFATE 4 MG/ML SYRINGE IVP PRN (22:44)
[2020-03-30 02:54] LABS: Basophils % (A) 0 %; Eosinophils # (A) 0.2 k/uL (0-0.7); Eosinophils % (A) 2 %; HCT 35.4 % (34.0-46.0); HGB 10.8 gm/dL (11.4-16.0); Hypochromasia Moderate; Lymphocytes # (A) 0.9 k/uL (1.0-4.8); Lymphocytes % (A) 12 %; MCH 27.4 pg (25.0-35.0); MCHC 30.6 g/dL (31.0-37.0); MCV 89.7 fL (80.0-100.0); Mean Platelet Volume 8.4; Monocytes # (A) 0.7 k/uL (0-1.0); Monocytes % (A) 8 %; Neutrophils # (A) 5.8 k/uL (1.3-7.7); Neutrophils % (A) 74 %; Platelet Count 225 k/uL (150-450); RBC 3.95 m/uL (3.80-5.40); RDW 14.5 % (11.5-15.5); WBC 7.7 k/uL (3.8-10.6)
[2020-03-30 03:23] LABS: INR 1.1 (<1.2); Partial Thromboplastin Time 44.6 sec (22.0-30.0); Prothrombin Time 11.6 sec (9.0-12.0)
[2020-03-30] MEDS: lisinopriL 5 MG TAB PO SCH (07:39)
[2020-03-30] MEDS: GABAPENTIN 100 MG CAP PO SCH ×3 (07:39→20:36)
[2020-03-30] MEDS: TORSEMIDE 20 MG TAB PO SCH (07:40)
[2020-03-30] MEDS: METOPROLOL TARTRATE 12.5 MG TAB PO SCH ×2 (07:40→20:33)
[2020-03-30] MEDS: PANTOPRAZOLE 40 MG TABLET PO SCH ×2 (07:40→20:33)
--- NOTE | 2020-03-30 09:48 | P.PN ---
Progress Note - Text Progress Note Date: 03/30/20 Patient is doing better. She is tolerating diet. On exam her vital signs are stable. Abdomen soft. Resolving small bowel obstruction. Patient will have her diet advanced.
--- NOTE | 2020-03-30 12:13 | P.PN ---
Subjective Progress Note Date: 03/30/20 This is a pleasant 84-year-old female patient who presented with small bowel obstruction. She does have a history of paroxysmal atrial fibrillation and has been anticoagulated with Coumadin the past. She also has a history of diabetes mellitus, hypertension, hyperlipidemia, mitral valve replacement, pulmonary hypertension, and biventricular ICD for history of cardiomyopathy. Patient initially had NG tube however this was removed and the patient has been started on a diet for which she had full liquids at lunchtime. We are following with the patient due to anticoagulation. She is currently being maintained on a heparin drip. She is overall feeling a bit better. She does have some abdominal tenderness to palpation. No nausea, vomiting. 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 03/30/2020 The patient was seen and examined resting comfortably in bed. She is feeling a bit better compared to yesterday. She has less abdominal tenderness with palpation. Her diet is being advanced and she is tolerating this well. She continues on IV heparin. Objective - Vital Signs Vital signs: Vital Signs Temp 98.2 F 03/30/20 04:35 Pulse 70 03/30/20 07:47 Resp 15 03/30/20 07:47 BP 135/73 03/30/20 04:35 Pulse Ox 95 03/30/20 11:20 Intake & Output 03/29/20 03/30/20 03/30/20 18:59 06:59 18:59 Intake Total 612.414 3165.245 Balance 911.992 9444.245 Intake: Intake, IV Titration 195.197 622.245 Amount Heparin Sod,Pork in 0.45% 195.197 22.245 NaCl 25,000 unit In 0.45 % NaCl 1 250ml.bag @ 12 UNITS/KG/HR 7.076 mls/hr IV .Q24H [facility] Rx#: [id number] Sodium Chloride 0.9% 1, 600 000 ml @ 50 mls/hr IV . Q20H [facility] Rx#:[id number] Oral 840 Other: Voiding Method Toilet Toilet Toilet # Voids 4 1 # Bowel Movements 2 - Exam PHYSICAL EXAMINATION: HEENT: Head is atraumatic, normocephalic. Pupils equal, round. Neck is supple. There is no elevated jugular venous pressure. HEART EXAMINATION: Heart sounds regular, S1 and S2 with a systolic murmur. CHEST EXAMINATION: Lungs are clear to auscultation. No chest wall tenderness is noted on palpation or with deep breathing. ABDOMEN: Soft, mild tenderness with light palpation. EXTREMITIES: 2+ peripheral pulses with no evidence of peripheral edema and no calf tenderness noted. NEUROLOGIC patient is awake, alert and oriented x3. . - Labs CBC & Chem 7: 03/30/20 02:41 03/28/20 05:31 Labs: Abnormal Lab Results - Last 24 Hours (Table) 03/29/20 03/29/20 03/30/20 Range/Units 12:31 19:03 02:41 Hgb 10.8 L (11.4-16.0) gm/dL MCHC 30.6 L (31.0-37.0) g/dL Lymphocytes # 0.9 L (1.0-4.8) k/uL APTT 34.9 H 112.3 H* (22.0-30.0) sec 03/30/20 Range/Units 02:41 Hgb (11.4-16.0) gm/dL MCHC (31.0-37.0) g/dL Lymphocytes # (1.0-4.8) k/uL APTT 44.6 H (22.0-30.0) sec Assessment and Plan Assessment: Small bowel obstruction Paroxysmal atrial fibrillation Cardiomyopathy status post biventricular AICD Status post mitral valve replacement Hypertension Plan: From cardiology's perspective medications reviewed and we will continue the same. We will resume home Coumadin dosing. Monitor INR closely. Anticipate the patient will be discharged home soon. SETUP OPERATOR note has been reviewed, I agree with a documented findings and plan of care. Patient was seen and examined.
[2020-03-30] MEDS: LACTATED RINGERS 1,000 ML IV SCH (16:03)
--- NOTE | 2020-03-30 16:36 | P.PN ---
Progress Note - Text Progress Note Date: 03/29/20 Interval history: This is a pleasant 84 years old female with past medical history of atrial fib rillation on anticoagulation, diabetes mellitus, hypertension, hypothyroidism she was recently discharged from the hospital last month 02/09 for GI bleed, her Coumadin was resumed after she got EGD and colonoscopy where upper endoscope patient revealed mild gastritis and colonoscopy showed diverticulosis but no colorectal neoplasia. This time patient presents with abdominal pain of 2 days' duration she had similar pain about 1 week ago but it didn't last long, her pain really in the right side of the abdomen apart and lower about 10/10 in severity when she came in now is better, felt like dull pain associated with 4 times of vomiting, bile vomitus with no blood. She didn't have bowel movement or passed gas for the last 2 days. No chest pain or dyspnea Admitted with small bowel obstruction. NG tube in place. Did pass flatus and bowel movement. NG tube discontinued. Today-on clear liquids. Feeling better. Has passed no flatus and bowel movement. Decreased abdominal pain. Review of systems: Was done for constitutional, cardiovascular, GI, pulmonary. relevant finding as above Active Medications Atorvastatin Calcium (Atorvastatin 10 Mg Tab) 10 mg PO HS [facility] Last Admin: 03/28/20 21:47 Dose: 10 mg Documented by: Gabapentin (Gabapentin 100 Mg Cap) 200 mg PO TID [facility] Last Admin: 03/29/20 17:33 Dose: 200 mg Documented by: Heparin Sodium (Porcine) (Heparin Sodium,Porcine 5,000 Unit/Ml 1 Ml Vial) 0 unit IV PER PROTOCOL PRN; Protocol PRN Reason: Low PTT Hydralazine HCl (Hydralazine Hcl 20 Mg/Ml 1 Ml Vial) 10 mg IVP Q4HR PRN PRN Reason: Blood Pressure - High Last Admin: 03/28/20 21:48 Dose: 10 mg Documented by: Sodium Chloride (Saline 0.9%) 1,000 mls @ 50 mls/hr IV .Q20H [facility] Last Admin: 03/29/20 07:56 Dose: 50 mls/hr Documented by: Lactated Ringer's (Lactated Ringers) 1,000 mls @ 20 mls/hr IV .Q24H [facility] Last Admin: 03/29/20 17:33 Dose: Not Given Documented by: Heparin Sodium/Sodium Chloride (25,000 unit/ Sodium Chloride) 250 mls @ 7.076 mls/hr IV .Q24H [facility]; Protocol Last Admin: 03/29/20 17:32 Dose: 14.99 units/kg/hr, 8.839 mls/hr Documented by: Levothyroxine Sodium (Levothyroxine 25 Mcg Tab) 25 mcg PO HS [facility] Last Admin: 03/28/20 19:43 Dose: 25 mcg Documented by: Lidocaine HCl (Lidocaine 1% (10mg/Ml) For Iv Start) 0.1 ml INTRADERMA PER PROTOCOL PRN PRN Reason: IV Start Lisinopril (Lisinopril 5 Mg Tab) 5 mg PO DAILY [facility] Last Admin: 03/29/20 07:53 Dose: 5 mg Documented by: Metoprolol Tartrate (Metoprolol Tartrate 12.5 Mg Tab) 12.5 mg PO BID [facility] Last Admin: 03/29/20 07:53 Dose: 12.5 mg Documented by: Miscellaneous Information (Warfarin Per Pharmacy) 1 each MISCELLANE DIRECTED PRN PRN Reason: Per Protocol Morphine Sulfate (Morphine Sulfate 4 Mg/Ml Syringe) 4 mg IVP Q6HR PRN PRN Reason: Pain Last Admin: 03/28/20 18:21 Dose: 4 mg Documented by: Naloxone HCl (Naloxone 0.4 Mg/Ml 1 Ml Vial) 0.2 mg IV Q2M PRN PRN Reason: Opioid Reversal Ondansetron HCl (Ondansetron 4 Mg/2 Ml Vial) 4 mg IVP Q6HR PRN PRN Reason: Nausea And Vomiting Last Admin: 03/27/20 12:51 Dose: 4 mg Documented by: Pantoprazole Sodium (Pantoprazole 40 Mg Tablet) 40 mg PO BID [facility] Last Admin: 03/29/20 07:53 Dose: 40 mg Documented by: Torsemide (Torsemide 20 Mg Tab) 10 mg PO DAILY [facility] Last Admin: 03/29/20 07:53 Dose: 10 mg Documented by: Warfarin Sodium (Warfarin 3 Mg Tab) 3 mg PO DAILY@1800 [facility]; Protocol Last Admin: 03/29/20 17:42 Dose: 3 mg Documented by: On examination: VITAL SIGNS: 97.9, 70, 18, 121/67, 97% on room air GENERAL APPEARANCE: Laying in bed, awake. HEENT: Normal external appearance of nose and ear. Oral cavity-dry, NG tube- removed EYES: Pupils equal. Conjunctiva normal. NECK: JVD not raised. Mass not palpable. RESPIRATORY: Respiratory effort normal. Lungs clear to auscultation. CARDIOVASCULAR: First and second sounds normal. No edema. ABDOMEN: Soft. Mild tenderness. No guarding rigidity decreased distention, bowel sounds present, Liver and spleen not palpable.. PSYCHIATRY: Alert and oriented x3. Mood and affect normal. INVESTIGATIONS, reviewed in the clinical context: White count 8.4 hemoglobin 11.8 Previous testing White count 10 hemoglobin 11.7 platelets 238 potassium 3.3 creatinine 0.7 Computed tomography scan of the abdomen and pelvis-large complex cyst posterior right hemipelvis, improving small bowel obstruction Assessment: -Small bowel obstruction, with NG tube, with some clinical and radiological improvement-NG tube removed -Right adnexa cyst 5.6 cm-for follow further up -Persistent atrial fibrillation -Diabetic mellitus type II -GERD -Hyperlipidemia -Essential hypertension -Primary osteoarthritis -Obstructive sleep apnea mitral valve replacement -Moderate to severe pulmonary hypertension -AICD/pacemaker -Obstructive sleep apnea uses a CPAP -Hudson's esophagus Plan: Patient is on clear liquids. Diet to be advanced if okay with surgery. A lot of the patient sit up in a chair and ambulate with assistance
--- NOTE | 2020-03-30 16:38 | P.PN ---
Progress Note - Text Progress Note Date: 03/30/20 Interval history: This is a pleasant 84 years old female with past medical history of atrial fib rillation on anticoagulation, diabetes mellitus, hypertension, hypothyroidism she was recently discharged from the hospital last month 02/09 for GI bleed, her Coumadin was resumed after she got EGD and colonoscopy where upper endoscope patient revealed mild gastritis and colonoscopy showed diverticulosis but no colorectal neoplasia. This time patient presents with abdominal pain of 2 days' duration she had similar pain about 1 week ago but it didn't last long, her pain really in the right side of the abdomen apart and lower about 10/10 in severity when she came in now is better, felt like dull pain associated with 4 times of vomiting, bile vomitus with no blood. She didn't have bowel movement or passed gas for the last 2 days. No chest pain or dyspnea Admitted with small bowel obstruction. NG tube in place. Did pass flatus and bowel movement. NG tube discontinued. Today-tolerated a full liquid diet. Decreased abdominal pain. Having bowel movements. Feeling better. Review of systems: Was done for constitutional, cardiovascular, GI, pulmonary. relevant finding as above Active Medications Atorvastatin Calcium (Atorvastatin 10 Mg Tab) 10 mg PO HS [facility] Last Admin: 03/29/20 19:55 Dose: 10 mg Documented by: Gabapentin (Gabapentin 100 Mg Cap) 200 mg PO TID [facility] Last Admin: 03/30/20 07:39 Dose: 200 mg Documented by: Heparin Sodium (Porcine) (Heparin Sodium,Porcine 5,000 Unit/Ml 1 Ml Vial) 0 unit IV PER PROTOCOL PRN; Protocol PRN Reason: Low PTT Hydralazine HCl (Hydralazine Hcl 20 Mg/Ml 1 Ml Vial) 10 mg IVP Q4HR PRN PRN Reason: Blood Pressure - High Last Admin: 03/28/20 21:48 Dose: 10 mg Documented by: Sodium Chloride (Saline 0.9%) 1,000 mls @ 50 mls/hr IV .Q20H [facility] Last Admin: 03/29/20 07:56 Dose: 50 mls/hr Documented by: Lactated Ringer's (Lactated Ringers) 1,000 mls @ 20 mls/hr IV .Q24H [facility] Last Admin: 03/30/20 16:03 Dose: Not Given Documented by: Heparin Sodium/Sodium Chloride (25,000 unit/ Sodium Chloride) 250 mls @ 7.076 mls/hr IV .Q24H [facility]; Protocol Last Titration: 03/29/20 21:31 Dose: 12 units/kg/hr, 7.076 mls/hr Documented by: Levothyroxine Sodium (Levothyroxine 25 Mcg Tab) 25 mcg PO HS [facility] Last Admin: 03/29/20 19:55 Dose: 25 mcg Documented by: Lidocaine HCl (Lidocaine 1% (10mg/Ml) For Iv Start) 0.1 ml INTRADERMA PER PROTOCOL PRN PRN Reason: IV Start Lisinopril (Lisinopril 5 Mg Tab) 5 mg PO DAILY [facility] Last Admin: 03/30/20 07:39 Dose: 5 mg Documented by: Metoprolol Tartrate (Metoprolol Tartrate 12.5 Mg Tab) 12.5 mg PO BID [facility] Last Admin: 03/30/20 07:40 Dose: 12.5 mg Documented by: Miscellaneous Information (Warfarin Per Pharmacy) 1 each MISCELLANE DIRECTED PRN PRN Reason: Per Protocol Morphine Sulfate (Morphine Sulfate 4 Mg/Ml Syringe) 4 mg IVP Q6HR PRN PRN Reason: Pain Last Admin: 03/29/20 22:44 Dose: 4 mg Documented by: Naloxone HCl (Naloxone 0.4 Mg/Ml 1 Ml Vial) 0.2 mg IV Q2M PRN PRN Reason: Opioid Reversal Ondansetron HCl (Ondansetron 4 Mg/2 Ml Vial) 4 mg IVP Q6HR PRN PRN Reason: Nausea And Vomiting Last Admin: 03/27/20 12:51 Dose: 4 mg Documented by: Pantoprazole Sodium (Pantoprazole 40 Mg Tablet) 40 mg PO BID [facility] Last Admin: 03/30/20 07:40 Dose: 40 mg Documented by: Torsemide (Torsemide 20 Mg Tab) 10 mg PO DAILY [facility] Last Admin: 03/30/20 07:40 Dose: 10 mg Documented by: Warfarin Sodium (Warfarin 2 Mg Tab) 4 mg PO ONCE@1800 [facility] Stop: 03/30/20 18:01 On examination: VITAL SIGNS: 97.7, 70, 16, 117/63, 97% room air GENERAL APPEARANCE: Laying in bed, comfortable HEENT: Normal external appearance of nose and ear. Oral cavity-dry, NG tube- removed EYES: Pupils equal. Conjunctiva normal. NECK: JVD not raised. Mass not palpable. RESPIRATORY: Respiratory effort normal. Lungs clear to auscultation. CARDIOVASCULAR: First and second sounds normal. No edema. ABDOMEN: Soft. Mild tenderness. No guarding rigidity decreased distention, bowel sounds present, Liver and spleen not palpable.. PSYCHIATRY: Alert and oriented x3. Mood and affect normal. INVESTIGATIONS, reviewed in the clinical context: White count 7.7 hemoglobin 10.8 INR 1.1 Previous testing White count 10 hemoglobin 11.7 platelets 238 potassium 3.3 creatinine 0.7 Computed tomography scan of the abdomen and pelvis-large complex cyst posterior right hemipelvis, improving small bowel obstruction Assessment: -Small bowel obstruction, with NG tube, with some clinical and radiological improvement-NG tube removed-improved -Right adnexa cyst 5.6 cm-for follow further up -Persistent atrial fibrillation -Diabetic mellitus type II -GERD -Hyperlipidemia -Essential hypertension -Primary osteoarthritis -Obstructive sleep apnea mitral valve replacement -Moderate to severe pulmonary hypertension -AICD/pacemaker -Obstructive sleep apnea uses a CPAP -Hudson's esophagus Plan: Tolerated full liquids. Advance for lunch to regular diet. Encouraged to be out of bed. Is back on Coumadin. Pharmacy to dose Coumadin. Change IV heparin to Lovenox.
[2020-03-30] MEDS: HEPARIN SOD,PORK IN 0.45% NACL 25,000 UNIT in 0.45% NACL 1 250ML.BAG IV SCH (17:19)
[2020-03-30] MEDS: SODIUM CHLORIDE 0.9% 1,000 ML IV SCH (17:19)
[2020-03-30] MEDS ORDERED: WARFARIN 2 MG TAB PO ONE (18:00)
[2020-03-30] MEDS: LEVOTHYROXINE 25 MCG TAB PO SCH (20:30)
[2020-03-30] MEDS: ENOXAPARIN 60 MG/0.6 ML SYRINGE SQ SCH (20:31)
[2020-03-30] MEDS: ATORVASTATIN 10 MG TAB PO SCH (20:33)
[2020-03-30 21:42] VITALS: RESP 18
[2020-03-30] MEDS: MORPHINE SULFATE 4 MG/ML SYRINGE IVP PRN (22:26)
[2020-03-31 05:55] LABS: Basophils % (A) 1 %; Eosinophils # (A) 0.2 k/uL (0-0.7); Eosinophils % (A) 3 %; HCT 33.4 % (34.0-46.0); HGB 10.3 gm/dL (11.4-16.0); Hypochromasia Moderate; Lymphocytes # (A) 0.8 k/uL (1.0-4.8); Lymphocytes % (A) 12 %; MCH 27.8 pg (25.0-35.0); MCHC 30.9 g/dL (31.0-37.0); MCV 89.9 fL (80.0-100.0); Monocytes # (A) 0.6 k/uL (0-1.0); Monocytes % (A) 8 %; Neutrophils % (A) 74 %; Platelet Count 213 k/uL (150-450); RBC 3.72 m/uL (3.80-5.40); RDW 14.5 % (11.5-15.5); WBC 6.7 k/uL (3.8-10.6)
[2020-03-31] MEDS: SODIUM CHLORIDE 0.9% 1,000 ML IV SCH (06:12)
[2020-03-31 06:24] VITALS: BP 135/81; PULSE 70; TEMP 97.8
[2020-03-31] MEDS: GABAPENTIN 100 MG CAP PO SCH (08:39)
[2020-03-31] MEDS: PANTOPRAZOLE 40 MG TABLET PO SCH (08:40)
[2020-03-31] MEDS: METOPROLOL TARTRATE 12.5 MG TAB PO SCH (08:40)
[2020-03-31] MEDS: lisinopriL 5 MG TAB PO SCH (08:40)
[2020-03-31] MEDS: TORSEMIDE 20 MG TAB PO SCH (09:55)
[2020-03-31] MEDS: ENOXAPARIN 60 MG/0.6 ML SYRINGE SQ SCH (09:56)
[2020-03-31 11:15] LABS: INR 1.2 (0.90-1.11); Prothrombin Time 12.7 sec (9.9-11.9)
--- NOTE | 2020-03-31 11:35 | P.PN ---
Subjective Progress Note Date: 03/31/20 CHIEF COMPLAINT: Abdominal pain HISTORY OF PRESENT ILLNESS: Patient is being followed for small bowel obs truction. She denies any abdominal pain. She her last bowel movement was 2 days ago. She is tolerating diet. She denies any nausea or vomiting. She is passing gas. She is afebrile. WBC 6.7 Patient's Coumadin was restarted by medicine PHYSICAL EXAM: VITAL SIGNS: Reviewed. GENERAL: Well-developed in no acute distress. HEENT: No sclera icterus. Extraocular movements grossly intact. Moist buccal mucosa. Head is atraumatic, normocephalic. ABDOMEN: Soft. Nondistended. Nontender with palpation NEUROLOGIC: Alert and oriented. Cranial nerves II through XII grossly intact. ASSESSMENT: 1. Partial mechanical small bowel obstruction resolving 2. History of atrial fibrillation anticoagulated with Coumadin at home 3. History of AICD 4. History of borderline diabetes 5. Essential hypertension 6. Prior history incarcerated left femoral hernia and small bowel obstruction status post small bowel resection 7. Acute on chronic diastolic congestive heart failure exacerbation followed by cardiology PLAN: -Continue regular diet -Encourage patient to ambulate -Patient is stable for discharge from surgical standpoint Physician Certified Shorthand Reporter note has been reviewed by physician. Signing provider agrees with the documented findings, assessment, and plan of care. Objective - Vital Signs Vital signs: Vital Signs Temp 97.8 F 03/31/20 05:00 Pulse 70 03/31/20 05:00 Resp 18 03/31/20 05:00 BP 135/81 03/31/20 05:00 Pulse Ox 92 L 03/31/20 05:00 Intake & Output 03/30/20 03/31/20 03/31/20 18:59 06:59 18:59 Intake Total 302.935 650 Balance 302.935 650 Intake: Intake, IV Titration 302.935 Amount Heparin Sod,Pork in 0.45% 142.935 NaCl 25,000 unit In 0.45 % NaCl 1 250ml.bag @ 12 UNITS/KG/HR 7.076 mls/hr IV .Q24H BRAYAN Rx#: [id number] Lactated Ringers 1,000 ml 160 @ 20 mls/hr IV .Q24H BRAYAN Rx#:[id number] Oral 650 Other: Voiding Method Toilet Toilet # Voids 2 # Bowel Movements 0 - Labs CBC & Chem 7: 03/31/20 05:12 03/28/20 05:31 Labs: Abnormal Lab Results - Last 24 Hours (Table) 03/31/20 03/31/20 Range/Units 05:12 05:12 RBC 3.72 L (3.80-5.40) m/uL Hgb 10.3 L (11.4-16.0) gm/dL Hct 33.4 L (34.0-46.0) % MCHC 30.9 L (31.0-37.0) g/dL Lymphocytes # 0.8 L (1.0-4.8) k/uL PT 12.7 H (9.9-11.9) sec INR 1.20 H (0.90-1.11)
--- NOTE | 2020-03-31 12:07 | P.PN ---
Subjective Progress Note Date: 03/31/20 Principal diagnosis: Paroxysmal atrial fibrillation This is an 84-year-old female patient was admitted to the hospital was paroxysmal atrial fibrillation. We consulted to see her for further management of paroxysmal atrial fibrillation The patient was seen today. She is asymptomatic from a cardiovascular standpoint of view. She is in process of being discharged home. Coumadin was resumed. She is hemodynamically stable. Objective - Vital Signs Vital signs: Vital Signs Temp 97.8 F 03/31/20 05:00 Pulse 70 03/31/20 05:00 Resp 18 03/31/20 05:00 BP 135/81 03/31/20 05:00 Pulse Ox 92 L 03/31/20 05:00 Intake & Output 03/30/20 03/31/20 03/31/20 18:59 06:59 18:59 Intake Total 302.935 650 Balance 302.935 650 Intake: Intake, IV Titration 302.935 Amount Heparin Sod,Pork in 0.45% 142.935 NaCl 25,000 unit In 0.45 % NaCl 1 250ml.bag @ 12 UNITS/KG/HR 7.076 mls/hr IV .Q24H BRAYAN Rx#: [id number] Lactated Ringers 1,000 ml 160 @ 20 mls/hr IV .Q24H BRAYAN Rx#:[id number] Oral 650 Other: Voiding Method Toilet Toilet # Voids 2 # Bowel Movements 0 - Constitutional General appearance: Present: no acute distress - Respiratory Respiratory: bilateral: CTA - Cardiovascular Rhythm: regular Heart sounds: normal: S1, S2 - Labs CBC & Chem 7: 03/31/20 05:12 03/28/20 05:31 Labs: Abnormal Lab Results - Last 24 Hours (Table) 03/31/20 03/31/20 Range/Units 05:12 05:12 RBC 3.72 L (3.80-5.40) m/uL Hgb 10.3 L (11.4-16.0) gm/dL Hct 33.4 L (34.0-46.0) % MCHC 30.9 L (31.0-37.0) g/dL Lymphocytes # 0.8 L (1.0-4.8) k/uL PT 12.7 H (9.9-11.9) sec INR 1.20 H (0.90-1.11) Assessment and Plan Assessment: Assessment #1 paroxysmal atrial fibrillation #2 Small bowel obstruction #3 Multiple comorbid conditions Plan #1 continue the current medical regimen #2 the patient can be discharged home
[2020-03-31] MEDS ORDERED: WARFARIN 2 MG TAB PO ONE (18:00)
--- NOTE | 2020-03-31 22:31 | P.DS ---
Providers Date of admission: 03/24/20 22:51 Expected date of discharge: 03/31/20 Attending physician: Tashi Garcia Consults: 03/24/20 23:19 Consult Physician Stat Consulting Provider: Marco A Oliver Consult Reason/Comments: small bowel obstruction Do you want consulting provider notified?: Yes 03/25/20 11:49 Consult Physician Routine Consulting Provider: Daphney Cota Consult Reason/Comments: Cardiac clearance Do you want consulting provider notified?: Yes Primary care physician: Rashawn [facility] Course: Interval history: This is a pleasant 84 years old female with past medical history of atrial fibrillation on anticoagulation, diabetes mellitus, hypertension, hypothyroidism she was recently discharged from the hospital last month 02/09 for GI bleed, her Coumadin was resumed after she got EGD and colonoscopy where upper endoscope patient revealed mild gastritis and colonoscopy showed diverticulosis but no colorectal neoplasia. This time patient presents with abdominal pain of 2 days' duration she had similar pain about 1 week ago but it didn't last long, her pain really in the right side of the abdomen apart and lower about 10/10 in severity when she came in now is better, felt like dull pain associated with 4 times of vomiting, bile vomitus with no blood. She didn't have bowel movement or passed gas for the last 2 days. No chest pain or dyspnea Admitted with small bowel obstruction. NG tube in place. Did pass flatus and bowel movement. NG tube discontinued. Anticoagulation resumed. Today-doing well. Had bowel movement. No abdominal pain. Has been out of bed. Tolerating diet. Discussed with the patient about outpatient follow-up with the right adnexa mass with MEAT TEAM MEMBER Discussion and discharge planning more than 35 minutes Consultation: [facility] -Dr. Oliver general surgery On examination: VITAL SIGNS: 97.8, 70, 18, 1 35/81, 92% room air GENERAL APPEARANCE: Sitting up, comfortable HEENT: Normal external appearance of nose and ear. Oral normal EYES: Pupils equal. Conjunctiva normal. NECK: JVD not raised. Mass not palpable. RESPIRATORY: Respiratory effort normal. Lungs clear to auscultation. CARDIOVASCULAR: First and second sounds normal. No edema. ABDOMEN: Soft. No tenderness. No guarding rigidity decreased distention, bowel sounds present, Liver and spleen not palpable.. PSYCHIATRY: Alert and oriented x3. Mood and affect normal. INVESTIGATIONS, reviewed in the clinical context: White count 6.7 hemoglobin 10.3 INR 1.2 Previous testing White count 10 hemoglobin 11.7 platelets 238 potassium 3.3 creatinine 0.7 Computed tomography scan of the abdomen and pelvis-large complex cyst posterior right hemipelvis, improving small bowel obstruction Assessment: -Small bowel obstruction, with NG tube, improved -Right adnexa cyst 5.6 cm-for follow further up outpatient -Persistent atrial fibrillation -Diabetic mellitus type II -GERD -Hyperlipidemia -Essential hypertension -Primary osteoarthritis -Obstructive sleep apnea mitral valve replacement -Moderate to severe pulmonary hypertension -AICD/pacemaker -Obstructive sleep apnea uses a CPAP -Hudson's esophagus Disposition: Home Patient Condition at Discharge: Stable Plan - Discharge Summary Discharge Rx Participant: No New Discharge Prescriptions: New lisinopriL [Zestril] 5 mg PO DAILY #30 tab Continue Gabapentin [Neurontin] 200 mg PO TID Levothyroxine Sodium [Synthroid] 25 mcg PO HS Lovastatin [Mevacor] 20 mg PO HS Aspirin 81 mg PO DAILY Torsemide [Demadex] 10 mg PO DAILY Warfarin Sodium [Coumadin] 3 mg PO HS Metoprolol Tartrate [Lopressor] 12.5 mg PO BID #30 tab HYDROcodone/APAP 7.5-325MG [[place] 7.5-325] 1 tab PO RT-TID Psyllium Husk 100% [Metamucil Packet] 3 gm PO BID Omeprazole 20 mg PO BID Sennosides [Senna] 8.6 mg PO DAILY Discharge Medication List Gabapentin [Neurontin] 200 mg PO TID 10/08/14 [History] Levothyroxine Sodium [Synthroid] 25 mcg PO HS 06/23/16 [History] Lovastatin [Mevacor] 20 mg PO HS 06/03/17 [History] Aspirin 81 mg PO DAILY 06/06/17 [History] Torsemide [Demadex] 10 mg PO DAILY 12/08/19 [History] Warfarin Sodium [Coumadin] 3 mg PO HS 12/08/19 [History] Metoprolol Tartrate [Lopressor] 12.5 mg PO BID #30 tab 02/10/20 [Rx] HYDROcodone/APAP 7.5-325MG [[place] 7.5-325] 1 tab PO RT-TID 03/24/20 [History] Omeprazole 20 mg PO BID 03/24/20 [History] Psyllium Husk 100% [Metamucil Packet] 3 gm PO BID 03/24/20 [History] Sennosides [Senna] 8.6 mg PO DAILY 03/24/20 [History] lisinopriL [Zestril] 5 mg PO DAILY #30 tab 03/31/20 [Rx] Follow up Appointment(s)/Referral(s): cardiology, [Other] - 1 Week (Please call your chocolatier and make a follow up appointment.) Adilson Woody DO [Doctor of Osteopathic Medicine] - 1 Week ( For R adnexa mass the office states that they cannot make appointment untill the hospitalst calls the doctor that needs to see her.) Rashawn Farah MD [Primary Care Provider] - 1-2 days (The office is closed please call and make this appointment when the office is open.) Marco A Oliver MD [STAFF PHYSICIAN] - 04/08/20 2:45 pm Patient Instructions/Handouts: Bowel Obstruction (GEN) Discharge Disposition: HOME WITH HOME HEALTH SERVICES
== END 2020-03-31 13:15 | disposition home or self-care (01) | DRG 388 ==
LOC: EC 19:46 → 6NMEDSUR 22:51
PROVIDERS: ADMIT Internal Medicine; ATTEND Hospitalist
PROC: 0D9670Z Drainage of Stomach with Drainage Device, Via Natural or Artificial Opening (ICD-10-PCS; principal; 2020-03-24)
DX: K56.690 Other partial intestinal obstruction (principal); I50.33 Acute on chronic diastolic (congestive) heart failure; I48.19 Other persistent atrial fibrillation; I42.9 Cardiomyopathy, unspecified; I27.20 Pulmonary hypertension, unspecified; E03.9 Hypothyroidism, unspecified; E78.5 Hyperlipidemia, unspecified; G47.33 Obstructive sleep apnea (adult) (pediatric); I11.0 Hypertensive heart disease with heart failure; E11.9 Type 2 diabetes mellitus without complications; K21.9 Gastro-esophageal reflux disease without esophagitis; K22.70 Barrett's esophagus without dysplasia; M19.91 Primary osteoarthritis, unspecified site; N83.291 Other ovarian cyst, right side; Z79.890 Hormone replacement therapy; Z79.82 Long term (current) use of aspirin; Z79.01 Long term (current) use of anticoagulants; Z79.899 Other long term (current) drug therapy; Z88.1 Allergy status to other antibiotic agents; Z88.0 Allergy status to penicillin; Z88.2 Allergy status to sulfonamides; Z87.01 Personal history of pneumonia (recurrent); Z95.810 Presence of automatic (implantable) cardiac defibrillator; Z90.49 Acquired absence of other specified parts of digestive tract; Z98.49 Cataract extraction status, unspecified eye; Z82.49 Family history of ischemic heart disease and other diseases of the circulatory system; Z82.61 Family history of arthritis; Z98.890 Other specified postprocedural states; Z95.2 Presence of prosthetic heart valve
CPT/HCPCS: 36415; 71045; 71046; 74176; 74177; 80053; 81001; 82272; 83605; 83690; 83735; 84484; 85025; 85610; 85730; 87086; 93005; 93306; 94760; 96361; 96365; 96375; 96376; 99285

== ENCOUNTER 2020-05-29 12:43 | Emergency (ER) | payer MEDICARE ==
[2020-05-29 12:52] VITALS: PULSE 70; RESP 18
[2020-05-29] MEDS ORDERED: SODIUM CHLORIDE 0.9% 1,000 ML IV STA (13:02)
[2020-05-29] MEDS ORDERED: ASPIRIN 81 MG PO STA (13:02)
--- NOTE | 2020-05-29 13:13 | ED ---
General Adult HPI - General Chief complaint: Arrhythmia/Palpitations Stated complaint: tachycardia Time Seen by Provider: 05/29/20 12:57 Source: patient, RN notes reviewed Mode of arrival: wheelchair Limitations: no limitations - History of Present Illness Initial comments: Patient is a pleasant 84-year-old female presenting to the emergency department palpitations. Symptoms have been intermittent over a week or so however worse last 2 days. Patient has had heart rate home up to 110. No chest pain. Patient may have some mild associated dyspnea with increased heart rate. No leg pain or leg swelling. No nausea or diaphoresis. - Related Data Home Medications Medication Instructions Recorded Confirmed Gabapentin [Neurontin] 200 mg PO TID 10/08/14 05/29/20 Levothyroxine Sodium [Synthroid] 25 mcg PO HS 06/23/16 05/29/20 Lovastatin [Mevacor] 20 mg PO HS 06/03/17 05/29/20 Aspirin 81 mg PO DAILY 06/06/17 05/29/20 Torsemide [Demadex] 10 mg PO MOWEFR 12/08/19 05/29/20 Warfarin Sodium [Coumadin] 3 mg PO HS 12/08/19 05/29/20 HYDROcodone/APAP 7.5-325MG [[place] 1 tab PO Q8H PRN 03/24/20 05/29/20 7.5-325] Omeprazole 20 mg PO BID 03/24/20 05/29/20 Psyllium Husk 100% [Metamucil 3 gm PO BID 03/24/20 05/29/20 Packet] Sennosides [Senna] 8.6 mg PO DAILY 03/24/20 05/29/20 Fluticasone Propion/Salmeterol 1 puff INHALATION RT-BID PRN 05/29/20 05/29/20 [Airduo Digihaler 232-14 Mcg] Ipratropium-Albuterol Nebulize 3 ml INHALATION RT-QID PRN 05/29/20 05/29/20 [Duoneb 0.5 mg-3 mg/3 ml Soln] Metoprolol Succinate (ER) [Toprol 12.5 mg PO DAILY 05/29/20 05/29/20 Xl] Torsemide [Demadex] 20 mg PO SUTUTHSA 05/29/20 05/29/20 Allergies Allergy/AdvReac Type Severity Reaction Status Date / Time amoxicillin trihydrate Allergy Swelling Verified 05/29/20 14:11 [From Augmentin] ciprofloxacin [From Cipro] Allergy Swelling Verified 05/29/20 14:11 ciprofloxacin HCl Allergy Swelling Verified 05/29/20 14:11 [From Cipro] potassium clavulanate Allergy Swelling Verified 05/29/20 14:11 [From Augmentin] Sulfa (Sulfonamide Allergy Rash/Hives Verified 05/29/20 14:11 Antibiotics) Review of Systems ROS Statement: Those systems with pertinent positive or pertinent negative responses have been documented in the HPI. ROS Other: All systems not noted in ROS Statement are negative. Constitutional: Denies: fever Eyes: Denies: eye pain ENT: Denies: ear pain Respiratory: Denies: cough Cardiovascular: Reports: palpitations. Denies: chest pain Endocrine: Denies: fatigue Gastrointestinal: Denies: abdominal pain Genitourinary: Denies: dysuria Musculoskeletal: Denies: back pain Skin: Denies: rash Neurological: Denies: weakness Past Medical History Past Medical History: Atrial Fibrillation, Heart Failure, Diabetes Mellitus, GERD/Reflux, Hyperlipidemia, Hypertension, Osteoarthritis (OA), Pneumonia, Sleep Apnea/CPAP/BIPAP, Thyroid Disorder Additional Past Medical History / Comment(s): Pt recently admitted to [facility] on 02/06/20 [facility] acute GI bleed/had EGD and colonoscopy without cause found. 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 History of Any Multi-Drug Resistant Organisms: None Reported Past Surgical History: AICD, Cardiac Valve Replacement, Cholecystectomy, Hernia Repair, Pacemaker Additional Past Surgical History / Comment(s): 02/08/20 EGD and colonoscopy, AICD/pacer with last time replaced in 2018 at [facility], mitral valve replaced, past surgery/bowel resection d/t strangulated hernia Past Anesthesia/Blood Transfusion Reactions: No Reported Reaction Additional Past Anesthesia/Blood Transfusion Reaction / Comment(s): Has become aggressive after surgery. Type of Cardiac Device: Permanent Pacemaker, AICD Device Placement Date:: 2018 last time Past Psychological History: No Psychological Hx Reported Smoking Status: Never smoker Past Alcohol Use History: None Reported Past Drug Use History: None Reported - Past Family History Father Family Medical History: Myocardial Infarction (AZ) Additional Family Medical History / Comment(s): Father had a [place] at the age of 75 yrs. Mother Family Medical History: Osteoarthritis (OA) General Exam Limitations: no limitations General appearance: alert, in no apparent distress Head exam: Present: normocephalic Eye exam: Present: normal appearance Neck exam: Present: normal inspection Respiratory exam: Present: normal lung sounds bilaterally Cardiovascular Exam: Present: regular rate, normal rhythm, systolic murmur Expanded Peripheral pulses: 2+: Radial (R), Radial (L), Posterior Tibialis (R), Posterior Tibialis (L) GI/Abdominal exam: Present: soft. Absent: tenderness Extremities exam: Present: normal inspection. Absent: pedal edema, calf tenderness Neurological exam: Present: alert Psychiatric exam: Present: normal affect, normal mood Skin exam: Present: normal color Course Vital Signs 05/29/20 05/29/20 12:49 13:26 Temperature 98.4 F Pulse Rate 70 70 Respiratory 18 18 Rate Blood Pressure 117/73 96/58 O2 Sat by Pulse 96 97 Oximetry EKG Findings - EKG Comments: EKG Findings:: Paced rhythm with rate of 70. [place] 140. QRS 1:30. QT 542. QTC 585... Normal QRS. No acute ST change. Superior axis Medical Decision Making - Medical Decision Making Patient reevaluated and remained symptom-free. Patient does request discharge home. Patient and family updated on results and need for follow-up. Patient states she does have an appointment with her weatherization installer and a couple of days. - Lab Data Result diagrams: 05/29/20 13:08 05/29/20 13:08 Lab Results 05/29/20 05/29/20 05/29/20 Range/Units 13:08 13:08 13:08 WBC 8.1 (3.8-10.6) k/uL RBC 4.51 (3.80-5.40) m/uL Hgb 11.8 (11.4-16.0) gm/dL Hct 38.3 (34.0-46.0) % MCV 85.0 (80.0-100.0) fL MCH 26.2 (25.0-35.0) pg MCHC 30.8 L (31.0-37.0) g/dL RDW 15.0 (11.5-15.5) % Plt Count 282 (150-450) k/uL MPV 7.2 Neutrophils % 76 % Lymphocytes % 12 % Monocytes % 7 % Eosinophils % 3 % Basophils % 0 % Neutrophils # 6.2 (1.3-7.7) k/uL Lymphocytes # 1.0 (1.0-4.8) k/uL Monocytes # 0.6 (0-1.0) k/uL Eosinophils # 0.3 (0-0.7) k/uL Basophils # 0.0 (0-0.2) k/uL Hypochromasia Moderate PT 30.0 H (9.0-12.0) sec INR 3.1 H (<1.2) APTT 34.4 H (22.0-30.0) sec Sodium 139 (137-145) mmol/L Potassium 3.8 (3.5-5.1) mmol/L Chloride 105 (98-107) mmol/L Carbon Dioxide 26 (22-30) mmol/L Anion Gap 8 mmol/L BUN 22 H (7-17) mg/dL Creatinine 0.99 (0.52-1.04) mg/dL Est GFR (CKD-EPI)AfAm 60 (>60 ml/min/1.73 sqM) Est GFR (CKD-EPI)NonAf 52 (>60 ml/min/1.73 sqM) Glucose 114 H (74-99) mg/dL Calcium 9.2 (8.4-10.2) mg/dL Magnesium 2.3 (1.6-2.3) mg/dL Total Bilirubin 0.4 (0.2-1.3) mg/dL AST 22 (14-36) U/L ALT 11 (4-34) U/L Alkaline Phosphatase 56 (38-126) U/L Troponin I (0.000-0.034) ng/mL Total Protein 7.2 (6.3-8.2) g/dL Albumin 3.9 (3.5-5.0) g/dL Free T4 1.31 (0.78-2.19) ng/dL Free T3 pg/mL 4.0 (2.8-5.3) pg/ml 12/03/20 Range/Units 13:08 WBC (3.8-10.6) k/uL RBC (3.80-5.40) m/uL Hgb (11.4-16.0) gm/dL Hct (34.0-46.0) % MCV (80.0-100.0) fL MCH (25.0-35.0) pg MCHC (31.0-37.0) g/dL RDW (11.5-15.5) % Plt Count (150-450) k/uL MPV Neutrophils % % Lymphocytes % % Monocytes % % Eosinophils % % Basophils % % Neutrophils # (1.3-7.7) k/uL Lymphocytes # (1.0-4.8) k/uL Monocytes # (0-1.0) k/uL Eosinophils # (0-0.7) k/uL Basophils # (0-0.2) k/uL Hypochromasia PT (9.0-12.0) sec INR (<1.2) APTT (22.0-30.0) sec Sodium (137-145) mmol/L Potassium (3.5-5.1) mmol/L Chloride (98-107) mmol/L Carbon Dioxide (22-30) mmol/L Anion Gap mmol/L BUN (7-17) mg/dL Creatinine (0.52-1.04) mg/dL Est GFR (CKD-EPI)AfAm (>60 ml/min/1.73 sqM) Est GFR (CKD-EPI)NonAf (>60 ml/min/1.73 sqM) Glucose (74-99) mg/dL Calcium (8.4-10.2) mg/dL Magnesium (1.6-2.3) mg/dL Total Bilirubin (0.2-1.3) mg/dL AST (14-36) U/L ALT (4-34) U/L Alkaline Phosphatase (38-126) U/L Troponin I <0.012 (0.000-0.034) ng/mL Total Protein (6.3-8.2) g/dL Albumin (3.5-5.0) g/dL Free T4 (0.78-2.19) ng/dL Free T3 pg/mL (2.8-5.3) pg/ml - Radiology Data Radiology results: image reviewed (Chest x-ray shows cardiomegaly, postoperative changes.) Disposition Clinical Impression: Palpitations Disposition: HOME SELF-CARE Condition: Stable Instructions (If sedation given, give patient instructions): Heart Palpitations (ED) Additional Instructions: Please follow-up with cardiology in the next couple of days as planned. Please also follow-up with primary care physician in the next couple of days. Consider Holter monitor. Return for increased heart rate, pain or difficulty breathing, worsening symptoms or other concerns. Is patient prescribed a controlled substance at d/c from ED?: No Referrals: Rashawn Farah MD [Primary Care Provider] - 1-2 days Time of Disposition: 14:19
[2020-05-29 13:33] LABS: Basophils % (A) 0 %; Eosinophils # (A) 0.3 k/uL (0-0.7); Eosinophils % (A) 3 %; HCT 38.3 % (34.0-46.0); HGB 11.8 gm/dL (11.4-16.0); Hypochromasia Moderate; Lymphocytes % (A) 12 %; MCH 26.2 pg (25.0-35.0); MCHC 30.8 g/dL (31.0-37.0); Mean Platelet Volume 7.2; Monocytes # (A) 0.6 k/uL (0-1.0); Monocytes % (A) 7 %; Neutrophils # (A) 6.2 k/uL (1.3-7.7); Neutrophils % (A) 76 %; Platelet Count 282 k/uL (150-450); RBC 4.51 m/uL (3.80-5.40); WBC 8.1 k/uL (3.8-10.6)
--- NOTE | 2020-05-29 13:43 | XR ---
EXAMINATION TYPE: XR chest 2V DATE OF EXAM: 05/29/2020 COMPARISON: Chest x-ray 03/26/2020 HISTORY: Dysrhythmia, tachycardia TECHNIQUE: Frontal and lateral views of the chest are obtained. FINDINGS: Patient is post median sternotomy, mitral valve replacement, there are intracardiac leads as on prior exam. Aorta is dense. Surgical clips present in the upper abdomen. Heart remains enlarged . There may be some improvement in the interstitium although there are differences in technique. No e vident airspace disease, pneumothorax, or pleural effusion. Calcified right pretracheal node is prese nt. IMPRESSION: Stable cardiomegaly.
[2020-05-29 13:47] LABS: Albumin 3.9 g/dL (3.5-5.0); Calcium 9.2 mg/dL (8.4-10.2); Magnesium 2.3 mg/dL (1.6-2.3); Potassium 3.8 mmol/L (3.5-5.1); Total Bilirubin 0.4 mg/dL (0.2-1.3); Total Protein 7.2 g/dL (6.3-8.2)
[2020-05-29 13:58] LABS: INR 3.1 (<1.2); Partial Thromboplastin Time 34.4 sec (22.0-30.0)
[2020-05-29 14:06] LABS: T4, Free (Free Thyroxine) 1.31 ng/dL (0.78-2.19)
[2020-05-29 14:56] VITALS: BP 147/97
[2020-05-29 15:02] VITALS: TEMP 98
== END 2020-05-29 15:01 | disposition home or self-care (01) ==
LOC: EC 12:43
DX: R00.2 Palpitations (principal); I11.0 Hypertensive heart disease with heart failure; I50.9 Heart failure, unspecified; E78.5 Hyperlipidemia, unspecified; M19.90 Unspecified osteoarthritis, unspecified site; K21.9 Gastro-esophageal reflux disease without esophagitis; K22.70 Barrett's esophagus without dysplasia; I48.91 Unspecified atrial fibrillation; E03.9 Hypothyroidism, unspecified; G47.33 Obstructive sleep apnea (adult) (pediatric); Z79.890 Hormone replacement therapy; Z79.82 Long term (current) use of aspirin; Z79.899 Other long term (current) drug therapy; Z79.01 Long term (current) use of anticoagulants; Z88.1 Allergy status to other antibiotic agents; Z88.0 Allergy status to penicillin; Z88.2 Allergy status to sulfonamides; Z95.810 Presence of automatic (implantable) cardiac defibrillator; Z95.4 Presence of other heart-valve replacement; Z99.89 Dependence on other enabling machines and devices
CPT/HCPCS: 36415; 71046; 80053; 83735; 84439; 84443; 84481; 84484; 85025; 85610; 85730; 93005; 96360; 96361; 99285

== ENCOUNTER 2020-07-25 11:00 | Inpatient (IN) | payer MEDICARE ==
[2020-07-25] MEDS ORDERED: SODIUM CHLORIDE 0.9% 500 ML 500 ML IV STA (11:45)
--- NOTE | 2020-07-25 11:50 | ED ---
Abdominal Pain HPI <Lester Anthony - Last Filed: 07/25/20 14:16> - General Source: patient, RN notes reviewed Mode of arrival: wheelchair Limitations: physical limitation <Heath Tom - Last Filed: 07/25/20 14:20> - General Chief Complaint: Abdominal Pain Stated Complaint: abd pain Time Seen by Provider: 07/25/20 11:25 - History of Present Illness Initial Comments: 84-year-old female presented to emergency room complaining of upper abdominal pain. She noted that she has had this pain since yesterday. She noted that she woke up this morning pain was an 8 out of 10 she took her Darvocet. She noted that the pain was generalized to just under her rib cage for the most part. But also noted other generalized abdominal pain. She denied wanting any pain medication while lying in bed. Her last bowel movement was 10 days ago reported that this is usually fairly normal for her. She's had no issue passing gas. Patient was in no apparent distress. She did have diffuse tenderness across her entire abdomen on my palpation. She denied any nausea vomiting constipation diarrhea headache chest pain shortness of breath fever fatigue chills. (Heath Tom) - Related Data Home Medications Medication Instructions Recorded Confirmed Gabapentin [Neurontin] 200 mg PO TID 10/08/14 07/25/20 Levothyroxine Sodium [Synthroid] 25 mcg PO HS 06/23/16 07/25/20 Lovastatin [Mevacor] 20 mg PO HS 06/03/17 07/25/20 Aspirin 81 mg PO DAILY 06/06/17 07/25/20 Torsemide [Demadex] 10 mg PO SUTUTHSA 12/08/19 07/25/20 Warfarin Sodium [Coumadin] 3 mg PO HS 12/08/19 07/25/20 HYDROcodone/APAP 7.5-325MG [[place] 1 tab PO Q8H PRN 03/24/20 07/25/20 7.5-325] Omeprazole 20 mg PO BID 03/24/20 07/25/20 Sennosides [Senna] 8.6 mg PO DAILY 03/24/20 07/25/20 Fluticasone Propion/Salmeterol 1 puff INHALATION RT-BID PRN 05/29/20 07/25/20 [Airduo Digihaler 232-14 Mcg] Ipratropium-Albuterol Nebulize 3 ml INHALATION RT-QID PRN 05/29/20 07/25/20 [Duoneb 0.5 mg-3 mg/3 ml Soln] Torsemide [Demadex] 20 mg PO MOWEFR 05/29/20 07/25/20 Metoprolol Succinate (ER) [Toprol 50 mg PO TID 07/25/20 07/25/20 Xl] Psyllium Husk [Metamucil] 1.2 gm PO TID 07/25/20 07/25/20 Allergies Allergy/AdvReac Type Severity Reaction Status Date / Time amoxicillin trihydrate Allergy Swelling Verified 07/25/20 12:44 [From Augmentin] ciprofloxacin [From Cipro] Allergy Swelling Verified 07/25/20 12:44 ciprofloxacin HCl Allergy Swelling Verified 07/25/20 12:44 [From Cipro] potassium clavulanate Allergy Swelling Verified 07/25/20 12:44 [From Augmentin] Sulfa (Sulfonamide Allergy Rash/Hives Verified 07/25/20 12:44 Antibiotics) Review of Systems ROS Other: All systems not noted in ROS Statement are negative. <Lester Anthony - Last Filed: 07/25/20 14:16> ROS Other: All systems not noted in ROS Statement are negative. <Heath Tom - Last Filed: 07/25/20 14:20> ROS Statement: Those systems with pertinent positive or pertinent negative responses have been documented in the HPI. Past Medical History Past Medical History: Atrial Fibrillation, Heart Failure, Diabetes Mellitus, GERD/Reflux, Hyperlipidemia, Hypertension, Osteoarthritis (OA), Pneumonia, Sleep Apnea/CPAP/BIPAP, Thyroid Disorder Additional Past Medical History / Comment(s): lower acute GI bleed/had EGD and colonoscopy without cause found. 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 History of Any Multi-Drug Resistant Organisms: None Reported Past Surgical History: AICD, Cardiac Valve Replacement, Cholecystectomy, Hernia Repair, Pacemaker Additional Past Surgical History / Comment(s): 8/14/20 EGD and colonoscopy, AICD/pacer with last time replaced in 2018 at [facility], mitral valve replaced, past surgery/bowel resection d/t strangulated hernia Past Anesthesia/Blood Transfusion Reactions: No Reported Reaction Additional Past Anesthesia/Blood Transfusion Reaction / Comment(s): Has become aggressive after surgery. Type of Cardiac Device: Permanent Pacemaker, AICD Device Placement Date:: 2018 last time Past Psychological History: No Psychological Hx Reported Smoking Status: Never smoker Past Alcohol Use History: None Reported Past Drug Use History: None Reported - Past Family History Father Family Medical History: Myocardial Infarction ([place]) Additional Family Medical History / Comment(s): Father had a PA at the age of 75 yrs. Mother Family Medical History: Osteoarthritis (OA) <Heath Tom - Last Filed: 07/25/20 14:20> General Exam Limitations: physical limitation General appearance: alert, in no apparent distress Head exam: Present: atraumatic, normocephalic, normal inspection Eye exam: Present: normal appearance, PERRL, EOMI. Absent: scleral icterus, conjunctival injection, periorbital swelling ENT exam: Present: normal exam, mucous membranes moist Neck exam: Present: normal inspection. Absent: tenderness, meningismus, lymphadenopathy Respiratory exam: Present: normal lung sounds bilaterally. Absent: respiratory distress, wheezes, rales, rhonchi, stridor Cardiovascular Exam: Present: regular rate, normal rhythm, normal heart sounds. Absent: systolic murmur, diastolic murmur, rubs, gallop, clicks GI/Abdominal exam: Present: soft, tenderness (Diffuse abdominal tenderness on light palpation), normal bowel sounds Extremities exam: Present: normal inspection, full ROM, normal capillary refill. Absent: tenderness, pedal edema, joint swelling, calf tenderness Neurological exam: Present: alert, oriented X3, CN II-XII intact Psychiatric exam: Present: normal affect, normal mood Skin exam: Present: warm, dry, intact, normal color. Absent: rash <Heath Tom - Last Filed: 07/25/20 14:20> Course Vital Signs 07/25/20 11:17 Temperature 98.5 F Pulse Rate 106 H Respiratory 18 Rate Blood Pressure 135/86 O2 Sat by Pulse 96 Oximetry Medical Decision Making - Lab Data Result diagrams: 07/25/20 11:50 07/25/20 11:50 <RajLester Hugh - Last Filed: 07/25/20 14:16> - Lab Data Result diagrams: 07/25/20 11:50 07/25/20 11:50 - Radiology Data Radiology results: report reviewed, image reviewed <Heath Tom - Last Filed: 07/25/20 14:20> - Medical Decision Making Case discussed with both the Dr. Oliver and Dr. Andersen. Patient will be admitted, nothing by mouth, NG tube placed in the emergency department. (Lester Anthony) A 4-year-old female complaining of diffuse abdominal pain. Labs ordered. CT abdominal min and pelvis Case discussed with Dr. Anthony (Heath Tom) - Lab Data Lab Results 07/25/20 07/25/20 07/25/20 Range/Units 11:50 11:50 11:50 WBC 9.3 (3.8-10.6) k/uL RBC 4.30 (3.80-5.40) m/uL Hgb 11.7 (11.4-16.0) gm/dL Hct 36.3 (34.0-46.0) % MCV 84.6 (80.0-100.0) fL MCH 27.3 (25.0-35.0) pg MCHC 32.2 (31.0-37.0) g/dL RDW 16.8 H (11.5-15.5) % Plt Count 210 (150-450) k/uL MPV 7.5 Neutrophils % 82 % Lymphocytes % 8 % Monocytes % 6 % Eosinophils % 3 % Basophils % 1 % Neutrophils # 7.6 (1.3-7.7) k/uL Lymphocytes # 0.7 L (1.0-4.8) k/uL Monocytes # 0.5 (0-1.0) k/uL Eosinophils # 0.3 (0-0.7) k/uL Basophils # 0.1 (0-0.2) k/uL Hypochromasia Moderate Anisocytosis Slight Sodium 142 (137-145) mmol/L Potassium 4.4 (3.5-5.1) mmol/L Chloride 106 (98-107) mmol/L Carbon Dioxide 23 (22-30) mmol/L Anion Gap 13 mmol/L BUN 30 H (7-17) mg/dL Creatinine 0.95 (0.52-1.04) mg/dL Est GFR (CKD-EPI)AfAm 64 (>60 ml/min/1.73 sqM) Est GFR (CKD-EPI)NonAf 55 (>60 ml/min/1.73 sqM) Glucose 154 H (74-99) mg/dL Calcium 8.4 (8.4-10.2) mg/dL Total Bilirubin 1.2 (0.2-1.3) mg/dL AST 41 H (14-36) U/L ALT 27 (4-34) U/L Alkaline Phosphatase 77 (38-126) U/L Total Protein 7.4 (6.3-8.2) g/dL Albumin 4.2 (3.5-5.0) g/dL Amylase 43 (30-110) U/L Lipase 23 (23-300) U/L Urine Color Light Yellow Urine Appearance Clear (Clear) Urine pH 6.5 (5.0-8.0) Ur Specific [place] 1.007 (1.001-1.035) Urine Protein Negative (Negative) Urine Glucose (UA) Negative (Negative) Urine Ketones Negative (Negative) Urine Blood Negative (Negative) Urine Nitrite Negative (Negative) Urine Bilirubin Negative (Negative) Urine Urobilinogen <2.0 (<2.0) mg/dL Ur Leukocyte Esterase Negative (Negative) - Radiology Data CT: Partial small bowel obstruction left mid abdomen due to adhesions from adjacent surgical change. No significant proximal small bowel dilatation on cursory outside of the prominent fecal filled small bowel loop in the left mid abdomen to suggest significant obstruction there is additional distal small b owel feces signs consistent with delayed passage of ingested material the colonic level. Mild ill-defined fluid and fat stranding mid to lower abdomen is presently underlying infectious process or enteritis not entirely excluded (Heath Tom) Disposition Is patient prescribed a controlled substance at d/c from ED?: No <Lester Anthony - Last Filed: 07/25/20 14:16> Time of Disposition: 14:20 Decision Date: 07/25/20 Decision Time: 14:19 <Heath Tom - Last Filed: 07/25/20 14:20> Clinical Impression: Small bowel obstruction Disposition: ADMITTED IP TO THIS HOSP Condition: Stable Referrals: Rashawn Farah MD [Primary Care Provider] - 1-2 days
[2020-07-25] MEDS ORDERED: MORPHINE SULFATE 2 MG/ML SYRINGE IVP ONE (12:05)
[2020-07-25 12:12] LABS: Anisocytosis Slight; Basophils # (A) 0.1 k/uL (0-0.2); Basophils % (A) 1 %; Eosinophils # (A) 0.3 k/uL (0-0.7); Eosinophils % (A) 3 %; HCT 36.3 % (34.0-46.0); HGB 11.7 gm/dL (11.4-16.0); Hypochromasia Moderate; Lymphocytes # (A) 0.7 k/uL (1.0-4.8); Lymphocytes % (A) 8 %; MCH 27.3 pg (25.0-35.0); MCHC 32.2 g/dL (31.0-37.0); MCV 84.6 fL (80.0-100.0); Mean Platelet Volume 7.5; Monocytes # (A) 0.5 k/uL (0-1.0); Monocytes % (A) 6 %; Neutrophils # (A) 7.6 k/uL (1.3-7.7); Neutrophils % (A) 82 %; Platelet Count 210 k/uL (150-450); RDW 16.8 % (11.5-15.5); WBC 9.3 k/uL (3.8-10.6)
[2020-07-25 12:16] LABS: Appearance,Urine Clear (Clear); Bilirubin,Urine Negative (Negative); Blood,Urine Negative (Negative); Color,Urine Light Yellow; Glucose,Urine (UA) Negative (Negative); Ketones,Urine Negative (Negative); Leukocyte Esterase,Urine Negative (Negative); Nitrite,Urine Negative (Negative); PH, Urine 6.5 (5.0-8.0); Protein,Urine Negative (Negative); Specific Gravity,Urine 1.007 (1.001-1.035); Urobilinogen,Urine <2.0 mg/dL (<2.0)
[2020-07-25 12:24] LABS: Albumin 4.2 g/dL (3.5-5.0); Calcium 8.4 mg/dL (8.4-10.2); Total Bilirubin 1.2 mg/dL (0.2-1.3); Total Protein 7.4 g/dL (6.3-8.2)
[2020-07-25 12:40] LABS: Potassium 4.4 mmol/L (3.5-5.1)
--- NOTE | 2020-07-25 12:41 | CT ---
EXAMINATION TYPE: CT abdomen pelvis wo con DATE OF EXAM: 07/25/2020 HISTORY: Right upper quadrant pain. CT DLP: 367.9 mGycm. Automated Exposure Control for Dose Reduction was Utilized. TECHNIQUE: CT scan of the abdomen and pelvis is performed without oral or IV contrast. COMPARISON: CT abdomen and pelvis March 27, 2020 FINDINGS: Within the limitations of a non-contrast study, the following observations are made. LUNG BASES: Cardiomegaly with small tiny bilateral pleural effusions is redemonstrated and only parti ally imaged. Partial visualization of right-sided pacemaker wires similar to prior. LIVER/GB: Cholecystectomy clips are redemonstrated PANCREAS: Moderate To severe generalized fat replaced atrophy. SPLEEN: No significant abnormality is seen. ADRENALS: No significant abnormality is seen. KIDNEYS: No significant abnormality is seen. BOWEL: Suboptimal evaluation bowel without enteric contrast. Stomach poorly distended and thus subopt imally evaluated. Surgical sutures in the mid abdomen anteriorly again seen. Prominent diverticulosis of the sigmoid colon redemonstrated. New mild ill-defined fluid and fat stranding in the mid to lowe r abdomen with single prominent small bowel loop containing feces near level of the surgical sutures extending to the left. This measures up to 2.7 cm in diameter image 38. Some small bowel feces sign a nd terminal ileum on current study without suspicious dilatation. GENITAL ORGANS: Prominent retroflexed enlarged uterus redemonstrated, suspect underlying fibroid LYMPH NODES: Low dense structure right groin is more prominent, possible adenopathy measuring 2.6 x 1 .8 cm on axial image 79. OSSEOUS STRUCTURES: Underlying scoliosis. Moderate to severe disc space narrowing L2-L3, L4-L5, and L 5-S1 levels. Grade 1 anterolisthesis L4 on L5. Posterior spurring effaces the anterior thecal sac L2- L3 level OTHER: Calcified injection granulomas in the posterior gluteal region redemonstrated. IMPRESSION: Partial small bowel obstruction left mid abdomen due to adhesions from adjacent surgical change. No significant proximal small bowel dilatation on current study outside of the prominent feca l filled small bowel loop in the left mid abdomen to suggest significant obstruction. There is additi onal distal small bowel feces sign consistent with delayed passage of ingested material to colonic le emily. Mild ill-defined fluid and fat stranding mid to lower abdomen is present making underlying infec tious process or enteritis not entirely excluded.
[2020-07-25] MEDS ORDERED: metroNIDAZOLE-NS PMX 500 MG in SALINE 1 100ML.BAG IVPB STA (13:19)
[2020-07-25] MEDS ORDERED: SODIUM CHLORIDE 0.9% 1,000 ML IV STA (13:19)
[2020-07-25] MEDS ORDERED: NALOXONE 0.4 MG/ML 1 ML VIAL IV PRN ×2 (14:14→15:17)
[2020-07-25] MEDS ORDERED: ONDANSETRON 4 MG/2 ML VIAL IVP PRN (15:17)
[2020-07-25] MEDS ORDERED: MELATONIN 3 MG TABLET PO PRN (15:17)
--- NOTE | 2020-07-25 15:29 | P.GSCN ---
History of Present Illness Consult date: 07/25/20 History of present illness: CHIEF COMPLAINT: Abdominal pain HISTORY OF PRESENT ILLNESS: This is a 84-year-old female with a known history of prior small bowel obstruction treated conservatively in February 2020, atrial fibrillation and mitral valve replacement anticoagulated with Coumadin, borderline diabetic, congestive heart failure, severe pulmonary hypertension, AICD placement, GERD, hyperlipidemia, hypertension, sleep apnea, hypothyroidism, Herr's esophagus, prior cholecystectomy, prior incarcerated hernia and bowel resection. Patient seen and examined in the ER. Patient presented to the emergency room with complaints of abdominal pain that started yesterday. She reports that severe sharp pains in the upper abdomen underneath her rib cage. She also complains of lower abdominal pain. She reports that about 10 days since she had a normal bowel movement. She does report a very small formed stool earlier today. She also is complaining of abdominal distention. She denies any nausea or vomiting. She did pass a small amount of gas yesterday. She denies any fever, chills or sweats. Denies any difficulty with urinating. Patient was hospitalized in February for a partial small bowel obstruction and treated conservatively. She had a computed tomography scan of the abdomen and pelvis completed today which shows a partial small bowel obstruction left mid abdomen due to adhesions from adjacent surgical change. No significant proximal small bowel dilation on current study outside of the prominent fecal filled small bowel loops in the left mid abdomen to suggest significant obstruction there is additional distal small bowel feces sign consistent with delayed passage of ingested material to colonic level. Mild ill-defined fluid and fat stranding mid to lower abdomen is presently taking underlying infectious process or enteritis not entirely excluded. Patient has been admitted to the hospital for partial small bowel obstruction. PAST MEDICAL HISTORY: See list. PAST SURGICAL HISTORY: See list. MEDICATIONS: See list. ALLERGIES: See list. SOCIAL HISTORY: No illicit drug use. REVIEW OF SYSTEMS: CONSTITUTIONAL: Denies fever or chills. HEENT: Denies blurred vision, vision changes, or eye pain. Denies hemoptysis CARDIOVASCULAR: Denies chest pain or pressure. RESPIRATORY: No shortness of breath. GASTROINTESTINAL: See HPI for pertinent findings HEMATOLOGIC: Denies bleeding disorders. GENITOURINARY: Denies any blood in urine or increased urinary frequency. SKIN: Denies pruitis. Denies rash. PHYSICAL EXAM: VITAL SIGNS: Reviewed GENERAL: Well-developed in no acute distress. HEENT: No sclera icterus. Extraocular movements grossly intact. Moist buccal mucosa. Head is atraumatic, normocephalic. No nasal drainage. ABDOMEN: Soft. Distended. Tenderness with palpation of the upper abdomen and lower abdomen NEUROLOGIC: Alert and oriented. Cranial nerves II through XII grossly intact. LABORATORY DATA: WBC 9.3 hemoglobin 11.7 platelets 210 sodium 142 potassium 4.4 BUN 30 creatinine 0.95 AST 41 ALT 27 alk phos 77 Lipase 23 UA negative IMAGING: Computed tomography scan of the abdomen and pelvis completed which shows a partial small bowel obstruction left mid abdomen due to adhesions from adjacent surgical change. No significant proximal small bowel dilation on current study outside of the prominent fecal filled small bowel loops in the left mid abdomen to suggest significant obstruction there is additional distal small bowel feces sign consistent with delayed passage of ingested material to colonic level. Mild ill-defined fluid and fat stranding mid to lower abdomen is presently taking underlying infectious process or enteritis not entirely excluded. ASSESSMENT: 1. Partial small bowel obstruction of the left mid abdomen likely due to adhesions 2. Prior history of small bowel obstruction treated conservatively in February 3. Prior history of incarcerated left femoral hernia and small bowel obstruction status post reduction of incarcerated femoral hernia with repair and small bowel resection 4. History of atrial fibrillation anticoagulated with Coumadin 5. History of mitral valve replacement on Coumadin 6. History of AICD PLAN: -Place NG tube for decompression -Keep patient nothing by mouth -Continue IV fluids -Check PT/INR -Discussed with medicine service they are holding Coumadin and placing patient on IV heparin drip for anticoagulation -Check labs in a.m. -Further recommendations forthcoming per surgeon Thank you for this consultation Physician Geothermal Operations Engineer note has been reviewed by physician. Signing provider agrees with the documented findings, assessment, and plan of care. Past Medical History Past Medical History: Atrial Fibrillation, Heart Failure, Diabetes Mellitus, GERD/Reflux, Hyperlipidemia, Hypertension, Osteoarthritis (OA), Pneumonia, Sleep Apnea/CPAP/BIPAP, Thyroid Disorder Additional Past Medical History / Comment(s): lower acute GI bleed/had EGD and colonoscopy without cause found. 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 History of Any Multi-Drug Resistant Organisms: None Reported Past Surgical History: AICD, Cardiac Valve Replacement, Cholecystectomy, Hernia Repair, Pacemaker Additional Past Surgical History / Comment(s): 02/08/20 EGD and colonoscopy, AICD/pacer with last time replaced in 2018 at [facility], mitral valve replaced, past surgery/bowel resection d/t strangulated hernia Past Anesthesia/Blood Transfusion Reactions: No Reported Reaction Additional Past Anesthesia/Blood Transfusion Reaction / Comm: Has become ag gressive after surgery. Type of Cardiac Device: Permanent Pacemaker, AICD Device Placement Date:: 2018 last time Past Psychological History: No Psychological Hx Reported Smoking Status: Never smoker Past Alcohol Use History: None Reported Past Drug Use History: None Reported - Past Family History Father Family Medical History: Myocardial Infarction ([place]) Additional Family Medical History / Comment(s): Father had a [place] at the age of 75 yrs. Mother Family Medical History: Osteoarthritis (OA) Medications and Allergies Home Medications Medication Instructions Recorded Confirmed Type Gabapentin [Neurontin] 200 mg PO TID 10/08/14 07/25/20 History Levothyroxine Sodium [Synthroid] 25 mcg PO HS 06/23/16 07/25/20 History Lovastatin [Mevacor] 20 mg PO HS 06/03/17 07/25/20 History Aspirin 81 mg PO DAILY 06/06/17 07/25/20 History Torsemide [Demadex] 10 mg PO SUTUTHSA 12/08/19 07/25/20 History Warfarin Sodium [Coumadin] 3 mg PO HS 12/08/19 07/25/20 History HYDROcodone/APAP 7.5-325MG [[place] 1 tab PO Q8H PRN 03/24/20 07/25/20 History 7.5-325] Omeprazole 20 mg PO BID 03/24/20 07/25/20 History Sennosides [Senna] 8.6 mg PO DAILY 03/24/20 07/25/20 History Fluticasone Propion/Salmeterol 1 puff INHALATION RT-BID PRN 05/29/20 07/25/20 History [Airduo Digihaler 232-14 Mcg] Ipratropium-Albuterol Nebulize 3 ml INHALATION RT-QID PRN 05/29/20 07/25/20 History [Duoneb 0.5 mg-3 mg/3 ml Soln] Torsemide [Demadex] 20 mg PO MOWEFR 05/29/20 07/25/20 History Metoprolol Succinate (ER) [Toprol 50 mg PO TID 07/25/20 07/25/20 History Xl] Psyllium Husk [Metamucil] 1.2 gm PO TID 07/25/20 07/25/20 History Allergies Allergy/AdvReac Type Severity Reaction Status Date / Time amoxicillin trihydrate Allergy Swelling Verified 07/25/20 12:44 [From Augmentin] ciprofloxacin [From Cipro] Allergy Swelling Verified 07/25/20 12:44 ciprofloxacin HCl Allergy Swelling Verified 07/25/20 12:44 [From Cipro] potassium clavulanate Allergy Swelling Verified 07/25/20 12:44 [From Augmentin] Sulfa (Sulfonamide Allergy Rash/Hives Verified 07/25/20 12:44 Antibiotics) Surgical - Exam Vital Signs Temp Pulse Resp BP Pulse Ox 98.5 F 106 H 18 135/86 96 07/25/20 11:17 07/25/20 11:17 07/25/20 11:17 07/25/20 11:17 07/25/20 11:17 Results - Labs 07/25/20 11:50 07/25/20 11:50 Abnormal Lab Results - Last 24 Hours (Table) 07/25/20 07/25/20 Range/Units 11:50 11:50 RDW 16.8 H (11.5-15.5) % Lymphocytes # 0.7 L (1.0-4.8) k/uL BUN 30 H (7-17) mg/dL Glucose 154 H (74-99) mg/dL AST 41 H (14-36) U/L Diabetes panel 07/25/20 Range/Units 11:50 Sodium 142 (137-145) mmol/L Potassium 4.4 (3.5-5.1) mmol/L Chloride 106 (98-107) mmol/L Carbon Dioxide 23 (22-30) mmol/L BUN 30 H (7-17) mg/dL Creatinine 0.95 (0.52-1.04) mg/dL Glucose 154 H (74-99) mg/dL Calcium 8.4 (8.4-10.2) mg/dL AST 41 H (14-36) U/L ALT 27 (4-34) U/L Alkaline Phosphatase 77 (38-126) U/L Total Protein 7.4 (6.3-8.2) g/dL Albumin 4.2 (3.5-5.0) g/dL Calcium panel 07/25/20 Range/Units 11:50 Calcium 8.4 (8.4-10.2) mg/dL Albumin 4.2 (3.5-5.0) g/dL Pituitary panel 07/25/20 Range/Units 11:50 Sodium 142 (137-145) mmol/L Potassium 4.4 (3.5-5.1) mmol/L Chloride 106 (98-107) mmol/L Carbon Dioxide 23 (22-30) mmol/L BUN 30 H (7-17) mg/dL Creatinine 0.95 (0.52-1.04) mg/dL Glucose 154 H (74-99) mg/dL Calcium 8.4 (8.4-10.2) mg/dL Adrenal panel 07/25/20 Range/Units 11:50 Sodium 142 (137-145) mmol/L Potassium 4.4 (3.5-5.1) mmol/L Chloride 106 (98-107) mmol/L Carbon Dioxide 23 (22-30) mmol/L BUN 30 H (7-17) mg/dL Creatinine 0.95 (0.52-1.04) mg/dL Glucose 154 H (74-99) mg/dL Calcium 8.4 (8.4-10.2) mg/dL Total Bilirubin 1.2 (0.2-1.3) mg/dL AST 41 H (14-36) U/L ALT 27 (4-34) U/L Alkaline Phosphatase 77 (38-126) U/L Total Protein 7.4 (6.3-8.2) g/dL Albumin 4.2 (3.5-5.0) g/dL
[2020-07-25] MEDS ORDERED: HEPARIN SODIUM,PORCINE 5,000 UNIT/ML 1 ML VIAL IV PRN (15:35)
[2020-07-25] MEDS ORDERED: HEPARIN SOD,PORK IN 0.45% NACL 25,000 UNIT in 0.45% NACL 1 250ML.BAG IV SCH (15:45)
--- NOTE | 2020-07-25 16:27 | P.HPIM ---
History of Present Illness H&P Date: 07/25/20 Chief Complaint: Abdominal Pain History of presenting illness: Patient is an 84-year-old female with a past medical history including CAD with pacemaker/defibrillator placement, mitral valve replacement on Coumadin, chronic diastolic heart failure, severe pulmonary hypertension, hypertension, hyperlipidemia, hypothyroidism, neuropathy, GERD, and history of a bowel obstruction with herniation resulting in a small bowel resection. The patient presented to [facility] with a chief complaint of abdominal pain and distention. Patient reports diffuse abdominal pain is to right upper quadrant, epigastric region, left upper quadrant, and left lower quadrant. She describes this pain as sharp and crampy and that it is worse beneath both of her rib cages. She states this pain started yesterday and has progressively worsened. Patient reports chronic constipation and states that it has been about 10 days since she had her last bowel movement, but states that this happens sometimes and she thought she was going to have a bowel movement this morning because she was able to pass a small amount of flatus and a small piece of formed stool. Patient states she has not since been able to pass any flatus. She denies having any nausea or vomiting, but does report a decreased appetite. Patient denies having any other complaints including fever, chills, diaphoresis, chest pain, palpitations, shortness of breath, dyspnea with exertion, or any difficulties with or changes in urinary function. ED course: Patient was seen and fully evaluated in the emergency department with diagnosis of partial small bowel obstruction resulting in admission to general medical unit with telemetry for continuous close medical management. Labs: CBC and BMP showing no significant abnormalities. Liver profile revealing a slightly elevated AST at 41. Urinalysis negative for blood, protein, ketones, or infection. Covid [address] abdomen and pelvis without contrast: Partial small bowel obstruction left mid abdomen due to adhesions from adjacent surgical change. No significant proximal small bowel dilation and current study outside of the prominent fecal filled small bowel loops in the left mid abdomen to suggest significant obstruction. There is additional distal small bowel feces sign consistent with delayed passage of ingested material to colonic level. Mild ill-defined fluid and fat stranding related to lower abdomen is present making underlying infectious process or enteritis not entirely excluded. Review of Systems: Pertinent positives and negatives as discussed in HPI, a complete review of systems was performed and all other systems are negative. Physical exam: General: non toxic, no distress, appears at stated age Derm: warm, dry Head: atraumatic, normocephalic, symmetric Eyes: EOMI, no lid lag, anicteric sclera Mouth: no lip lesion, mucus membranes moist Cardiovascular: Murmur present. Pacemaker/defibrillator left anterior chest. Positive posterior tibial pulses bilaterally. Cap refill less than 2 seconds. Lungs: Respirations even, regular, and unlabored on room air. Lungs CTA bilateral, no rhonchi, no rales, no wheezing, and no accessory muscle use Abdominal: Soft distended. Tenderness to palpation in right upper, epigastric region, left upper quadrant, and left lower quadrant. No guarding, no appreciable organomegaly Ext: No gross muscle atrophy, no edema, no contractures. Neuro: Speech clear, movement and sensation of upper and lower extremities intact, no focal neuro deficits Psych: Alert, oriented, appropriate affect Assessment and Plan of Care: Abdominal pain with partial small bowel obstruction and concerns for underlying infectious process such as enteritis -CT revealing partial SBO in left mid abdomen due to adhesions from adjacent surgical change and mild ill-defined fluid and fat stranding related to lower abdomen is present making underlying infectious process or enteritis not entirely excluded. -General surgery Dr. Melody hneson. -Nothing by mouth with the exception of medications. -Continue NG tube to LIS for decompression. -Continued gentle hydration with IV fluids -IV antibiotics: Flagyl and Rocephin -Symptomatic care and pain management with Zofran as needed for nausea/vomiting and morphine as needed for pain. History of mitral valve replacement on Coumadin -Obtain a STAT INR -Hold Coumadin for possible surgical intervention and start patient on heparin infusion to maintain anticoagulation for mitral valve replacement. Severe Pulmonary Hypertension with Chronic diastolic heart failure not in acute exacerbation -Echocardiogram completed 03/25/20 revealed a preserved EF of 50-55% with moderate aortic stenosis and moderate to severe pulmonary hypertension. -Hold Torsemide while patient is being kept nothing by mouth with gentle hydration. Hypertension -Monitor vital signs and continue metoprolol. Hyperlipidemia -Continue daily medication regimen with atorvastatin. Hypothyroidism -Continue daily medication regimen with levothyroxine 25 g GERD -Continue daily medication regimen with Protonix. The patient is admitted with an anticipated greater than 2 midnight stay for evaluation of abdominal pain with partial small bowel obstruction. CODE STATUS: Full code DVT prophylaxis: Heparin, patient on Coumadin for mechanical mitral valve replacement and Coumadin held secondary to possible surgery and patient placed on heparin infusion at this time. Discussed with: patient and RN Anticipated discharge date: Pending clinical course Anticipated discharge place: home A total of 50 minutes was spent on the care of this complex patient more than 50% of the time was spent in counseling and care coordination. Past Medical History Past Medical History: Atrial Fibrillation, Heart Failure, Diabetes Mellitus, GERD/Reflux, Hyperlipidemia, Hypertension, Osteoarthritis (OA), Pneumonia, Sleep Apnea/CPAP/BIPAP, Thyroid Disorder Additional Past Medical History / Comment(s): lower acute GI bleed/had EGD and colonoscopy without cause found. 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 History of Any Multi-Drug Resistant Organisms: None Reported Past Surgical History: AICD, Cardiac Valve Replacement, Cholecystectomy, Hernia Repair, Pacemaker Additional Past Surgical History / Comment(s): 02/08/20 EGD and colonoscopy, AICD/pacer with last time replaced in [address] [facility], mitral valve replaced, past surgery/bowel resection d/t strangulated hernia Past Anesthesia/Blood Transfusion Reactions: No Reported Reaction Additional Past Anesthesia/Blood Transfusion Reaction / Comment(s): Has become aggressive after surgery. Type of Cardiac Device: Permanent Pacemaker, AICD Device Placement Date:: 2018 last time Past Psychological History: No Psychological Hx Reported Smoking Status: Never smoker Past Alcohol Use History: None Reported Past Drug Use History: None Reported - Past Family History Father Family Medical History: Myocardial Infarction (FL) Additional Family Medical History / Comment(s): Father had a FL at the age of 75 yrs. Mother Family Medical History: Osteoarthritis (OA) Medications and Allergies Home Medications Medication Instructions Recorded Confirmed Type Gabapentin [Neurontin] 200 mg PO TID 10/08/14 07/25/20 History Levothyroxine Sodium [Synthroid] 25 mcg PO HS 06/23/16 07/25/20 History Lovastatin [Mevacor] 20 mg PO HS 06/03/17 07/25/20 History Aspirin 81 mg PO DAILY 06/06/17 07/25/20 History Torsemide [Demadex] 10 mg PO SUTUTHSA 12/08/19 07/25/20 History Warfarin Sodium [Coumadin] 3 mg PO HS 12/08/19 07/25/20 History HYDROcodone/APAP 7.5-325MG [[place] 1 tab PO Q8H PRN 03/24/20 07/25/20 History 7.5-325] Omeprazole 20 mg PO BID 03/24/20 07/25/20 History Sennosides [Senna] 8.6 mg PO DAILY 03/24/20 07/25/20 History Fluticasone Propion/Salmeterol 1 puff INHALATION RT-BID PRN 05/29/20 07/25/20 History [Airduo Digihaler 232-14 Mcg] Ipratropium-Albuterol Nebulize 3 ml INHALATION RT-QID PRN 05/29/20 07/25/20 History [Duoneb 0.5 mg-3 mg/3 ml Soln] Torsemide [Demadex] 20 mg PO MOWEFR 05/29/20 07/25/20 History Metoprolol Succinate (ER) [Toprol 50 mg PO TID 07/25/20 07/25/20 History Xl] Psyllium Husk [Metamucil] 1.2 gm PO TID 07/25/20 07/25/20 History Allergies Allergy/AdvReac Type Severity Reaction Status Date / Time amoxicillin trihydrate Allergy Swelling Verified 07/25/20 12:44 [From Augmentin] ciprofloxacin [From Cipro] Allergy Swelling Verified 07/25/20 12:44 ciprofloxacin HCl Allergy Swelling Verified 07/25/20 12:44 [From Cipro] potassium clavulanate Allergy Swelling Verified 07/25/20 12:44 [From Augmentin] Sulfa (Sulfonamide Allergy Rash/Hives Verified 07/25/20 12:44 Antibiotics) Physical Exam Vitals: Vital Signs Temp Pulse Resp BP Pulse Ox 07/25/20 14:21 68 16 158/93 95 07/25/20 11:17 98.5 F 106 H 18 135/86 96 Intake and Output 07/25/20 07/25/20 07/25/20 06:59 14:59 22:59 Other: Weight 61.235 kg Results CBC & Chem 7: 07/25/20 11:50 07/25/20 11:50 Labs: Abnormal Lab Results - Last 24 Hours (Table) 07/25/20 07/25/20 Range/Units 11:50 11:50 RDW 16.8 H (11.5-15.5) % Lymphocytes # 0.7 L (1.0-4.8) k/uL BUN 30 H (7-17) mg/dL Glucose 154 H (74-99) mg/dL AST 41 H (14-36) U/L
[2020-07-25 16:29] LABS: INR 2.2 (<1.2); Partial Thromboplastin Time 29.1 sec (22.0-30.0); Prothrombin Time 21.4 sec (9.0-12.0)
[2020-07-25] MEDS: GABAPENTIN 100 MG CAP PO SCH ×2 (17:55→19:57)
[2020-07-25] MEDS: METOPROLOL SUCCINATE (ER) 50 MG TAB.ER.24H PO SCH ×2 (18:22→19:57)
[2020-07-25] MEDS ORDERED: hydrALAZINE HCL 20 MG/ML 1 ML VIAL IVP PRN (19:55)
[2020-07-25] MEDS: LEVOTHYROXINE 25 MCG TAB PO SCH (19:57)
[2020-07-25] MEDS: ATORVASTATIN 10 MG TAB PO SCH (19:57)
[2020-07-25 20:16] LABS: Glucose,Whole Blood 127 mg/dL (75-99)
[2020-07-25] MEDS: MORPHINE SULFATE 4 MG/ML SYRINGE IV PRN (20:17)
[2020-07-25] MEDS: metroNIDAZOLE-NS PMX 500 MG in SALINE 1 100ML.BAG IVPB SCH (23:09)
[2020-07-26 02:25] LABS: Glucose,Whole Blood 128 mg/dL (75-99)
[2020-07-26] MEDS: metroNIDAZOLE-NS PMX 500 MG in SALINE 1 100ML.BAG IVPB SCH ×4 (05:42→23:07)
[2020-07-26 06:45] LABS: Anisocytosis Slight; Basophils % (A) 0 %; Eosinophils # (A) 0.1 k/uL (0-0.7); Eosinophils % (A) 2 %; HCT 34.7 % (34.0-46.0); HGB 10.7 gm/dL (11.4-16.0); Hypochromasia Marked; Lymphocytes # (A) 0.8 k/uL (1.0-4.8); Lymphocytes % (A) 9 %; MCH 26.7 pg (25.0-35.0); MCHC 30.9 g/dL (31.0-37.0); MCV 86.4 fL (80.0-100.0); Mean Platelet Volume 7.4; Monocytes # (A) 0.6 k/uL (0-1.0); Monocytes % (A) 7 %; Neutrophils # (A) 6.8 k/uL (1.3-7.7); Neutrophils % (A) 80 %; Platelet Count 217 k/uL (150-450); RBC 4.01 m/uL (3.80-5.40); RDW 16.8 % (11.5-15.5); WBC 8.4 k/uL (3.8-10.6)
[2020-07-26] MEDS: IPRATROPIUM-ALBUTEROL 3 ML NEB INHALATION PRN (07:11)
[2020-07-26] MEDS: SYMBICORT 160-4.5 MCG INHALER INHALATION PRN (07:11)
[2020-07-26 07:15] LABS: Glucose,Whole Blood 123 mg/dL (75-99)
[2020-07-26 09:12] LABS: INR 2.09 (0.90-1.11); Prothrombin Time 21.7 sec (9.9-11.9)
[2020-07-26] MEDS: METOPROLOL SUCCINATE (ER) 50 MG TAB.ER.24H PO SCH ×3 (09:22→20:20)
[2020-07-26] MEDS: SODIUM CHLORIDE 0.9% 1,000 ML IV SCH (09:24)
[2020-07-26] MEDS: PANTOPRAZOLE 40 MG TABLET PO SCH (09:27)
[2020-07-26] MEDS: GABAPENTIN 100 MG CAP PO SCH ×3 (09:27→20:21)
[2020-07-26 09:39] LABS: African American GFR (CKD) 59.5 (60.0-200.0); Albumin 3.8 g/dL (3.80-4.90); Albumin/Globulin Ratio 1.65 (1.60-3.17); Anion Gap 12.3 mmol/L (4.00-12.00); Calcium 8.7 mg/dL (8.7-10.3); Carbon Dioxide 24.7 mmol/L (21.6-31.8); Globulin 2.3 g/dL (1.6-3.3); Magnesium 2.1 mg/dL (1.5-2.4); Non-African American GFR(CKD) 51.3 (60.0-200.0); Potassium 3.5 mmol/L (3.5-5.5); Total Bilirubin 0.8 mg/dL (0.2-1.2); Total Protein 6.1 g/dL (6.2-8.2)
--- NOTE | 2020-07-26 10:22 | P.PN ---
Subjective Progress Note Date: 07/26/20 Patient is doing well today. She denies any severe abdominal pain. No nausea or vomiting. Minimal output through NG tube overnight. Objective - Vital Signs Vital signs: Vital Signs Temp 97.9 F 07/26/20 07:32 Pulse 68 07/26/20 08:00 Resp 17 07/26/20 08:00 BP 159/85 07/26/20 07:32 Pulse Ox 94 L 07/26/20 07:32 Intake & Output 07/25/20 07/26/20 07/26/20 18:59 06:59 18:59 Intake Total 119.772 Balance 119.772 Weight 61.235 kg Intake: Intake, IV Titration 119.772 Amount Heparin Sod,Pork in 0.45% 119.772 NaCl 25,000 unit In 0.45 % NaCl 1 250ml.bag @ 12 UNITS/KG/HR 7.348 mls/hr IV .Q24H BRAYAN Rx#: [id number] Other: Voiding Method Toilet Toilet # Voids 2 - Exam General: The patient is awake and alert, in no distress Eye: there is normal conjunctiva bilaterally. Neck: The neck is supple, there is no JVD. Cardiovascular: Normal S1-S2, no S3-S4, no murmurs. Respiratory: Lungs clear to auscultation bilaterally Gastrointestinal: Abdomen is soft, nontender Musculoskeletal: There is no pedal edema. Neurological:. Speech is normal. Skin: Skin is warm and dry - Labs CBC & Chem 7: 07/26/20 05:37 07/26/20 05:37 Labs: Abnormal Lab Results - Last 24 Hours (Table) 07/25/20 07/25/20 07/25/20 Range/Units 11:50 11:50 15:36 Hgb (11.4-16.0) gm/dL MCHC (31.0-37.0) g/dL RDW 16.8 H (11.5-15.5) % Lymphocytes # 0.7 L (1.0-4.8) k/uL PT 21.4 H (9.0-12.0) sec INR 2.2 H (<1.2) APTT (22.0-30.0) sec Anion Gap (4.00-12.00) mmol/L BUN 30 H (7-17) mg/dL Est GFR (CKD-EPI)AfAm (60.0-200.0) Est GFR (CKD-EPI)NonAf (60.0-200.0) BUN/Creatinine Ratio (12.00-20.00) Ratio Glucose 154 H (74-99) mg/dL POC Glucose (mg/dL) (75-99) mg/dL AST 41 H (14-36) U/L Total Protein (6.2-8.2) g/dL 07/25/20 07/25/20 07/26/20 Range/Units 20:05 23:07 02:24 Hgb (11.4-16.0) gm/dL MCHC (31.0-37.0) g/dL RDW (11.5-15.5) % Lymphocytes # (1.0-4.8) k/uL PT (9.0-12.0) sec INR (<1.2) APTT 49.3 H (22.0-30.0) sec Anion Gap (4.00-12.00) mmol/L BUN (7-17) mg/dL Est GFR (CKD-EPI)AfAm (60.0-200.0) Est GFR (CKD-EPI)NonAf (60.0-200.0) BUN/Creatinine Ratio (12.00-20.00) Ratio Glucose (74-99) mg/dL POC Glucose (mg/dL) 127 H 128 H (75-99) mg/dL AST (14-36) U/L Total Protein (6.2-8.2) g/dL 07/26/20 07/26/20 07/26/20 Range/Units 05:37 05:37 05:37 Hgb 10.7 L (11.4-16.0) gm/dL MCHC 30.9 L (31.0-37.0) g/dL RDW 16.8 H (11.5-15.5) % Lymphocytes # 0.8 L (1.0-4.8) k/uL PT 21.7 H (9.0-12.0) sec INR 2.09 H (<1.2) APTT (22.0-30.0) sec Anion Gap 12.30 H (4.00-12.00) mmol/L BUN (7-17) mg/dL Est GFR (CKD-EPI)AfAm 59.5 L (60.0-200.0) Est GFR (CKD-EPI)NonAf 51.3 L (60.0-200.0) BUN/Creatinine Ratio 25.00 H (12.00-20.00) Ratio Glucose (74-99) mg/dL POC Glucose (mg/dL) (75-99) mg/dL AST (14-36) U/L Total Protein 6.1 L (6.2-8.2) g/dL 07/26/20 07/26/20 Range/Units 07:14 08:25 Hgb (11.4-16.0) gm/dL MCHC (31.0-37.0) g/dL RDW (11.5-15.5) % Lymphocytes # (1.0-4.8) k/uL PT (9.0-12.0) sec INR (<1.2) APTT 45.9 H (22.0-30.0) sec Anion Gap (4.00-12.00) mmol/L BUN (7-17) mg/dL Est GFR (CKD-EPI)AfAm (60.0-200.0) Est GFR (CKD-EPI)NonAf (60.0-200.0) BUN/Creatinine Ratio (12.00-20.00) Ratio Glucose (74-99) mg/dL POC Glucose (mg/dL) 123 H (75-99) mg/dL AST (14-36) U/L Total Protein (6.2-8.2) g/dL Assessment and Plan Assessment: This is a 84-year-old female with past medical history noted below who presented to the emergency room with abdominal pain and distention. Patient was evaluated in the ER and admitted to the hospital for further management of her medical problems noted below. Partial small bowel obstruction with concerns about underlying enteritis -CT revealing partial SBO in left mid abdomen due to adhesions from adjacent surgical change and mild ill-defined fluid and fat stranding related to lower abdomen is present making underlying infectious process or enteritis not entirely excluded. -General surgery Dr. Oliver following. Considering surgery today -Nothing by mouth -Continue NG tube to LIS for decompression. -Continued gentle hydration with IV fluids normal saline at 50 mg per hour -IV antibiotics: Flagyl and Rocephin -Symptomatic care and pain management with Zofran as needed for nausea/vomiting and morphine as needed for pain. 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 I would discontinue heparin. Repeat INR in the morning Severe Pulmonary Hypertension with Chronic diastolic heart failure not in acute exacerbation -Echocardiogram completed 03/25/20 revealed a preserved EF of 50-55% with moderate aortic stenosis and moderate to severe pulmonary hypertension. -Hold Torsemide while patient is being kept nothing by mouth with gentle hydration. -I would order one-time dose of IV Lasix 40 mg today Hypertension -Monitor vital signs and continue metoprolol. Hyperlipidemia -Continue daily medication regimen with atorvastatin. Hypothyroidism -Continue daily medication regimen with levothyroxine 25 g GERD -Continue daily medication regimen with Protonix. The patient is admitted with an anticipated greater than 2 midnight stay for evaluation of abdominal pain with partial small bowel obstruction. CODE STATUS: Full code DVT prophylaxis: Heparin, patient on Coumadin for mechanical mitral valve replacement and Coumadin held secondary to possible surgery and patient placed on heparin infusion at this time. Discussed with: patient and RN Anticipated discharge date: Pending clinical course Anticipated discharge place: home A total of 50 minutes was spent on the care of this complex patient more than 50% of the time was spent in counseling and care coordination.
[2020-07-26] MEDS ORDERED: FUROSEMIDE 10 MG/ML 4 ML VIAL IV STA (10:23)
--- NOTE | 2020-07-26 10:37 | P.PN ---
Progress Note - Text Progress Note Date: 07/26/20 Patient remained stable. She is still has complaints of abdominal pain distention. She's had nasogastric tube decompression overnight. On exam vital signs are stable. Abdomen soft. There is mild tenderness throughout. There is no rebound or guarding. A pair patient will undergo exploratory laparotomy with possible lysis of adhesions tomorrow.
[2020-07-26 11:35] LABS: Glucose,Whole Blood 141 mg/dL (75-99)
[2020-07-26] MEDS: POTASSIUM CHLORIDE 10 MEQ in WATER FOR INJECTION 1 100ML.BAG IVPB SCH ×3 (12:06→12:58)
[2020-07-26] MEDS ORDERED: POTASSIUM CHLORIDE ER 10 MEQ TAB.ER.PRT PO STA (12:58)
--- NOTE | 2020-07-26 15:01 | CONS ---
CONSULTATION DATE OF SERVICE: July 26, 2020. REASON FOR THE CONSULTATION: Preoperative cardiac assessment. 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 We requested to see the patient as a consult for preop cardiac assessment. The patient was interviewed in the room today with her daughter on the phone because the patient is somewhat a poor historian. Clinically, she describes shortness of breath with exertion, but no symptoms of chest pain or chest discomfort. According to her daughter, the patient underwent recently a stress test and echocardiogram and both came in to be abnormal and we are in process of receiving a copy of them. On examination, the patient does have next significant systolic murmur at the right upper sternal border as well as the apical area. Beside that, she does have abdominal tenderness. She denies any dizziness or lightheadedness or any feeling of heart racing or fluttering, or syncope. Unfortunately, I could not review her workup including the EKG and the blood work because the computer and electronic medical record are not working at this point of time and in the process to be restored later on today. PAST MEDICAL HISTORY: Includes: 1. Permanent atrial fibrillation. 2. Valvular heart disease. 3. Status post mitral valve replacement. PAST SURGICAL HISTORY: Mitral valve replacement. PHYSICAL EXAMINATION: Vitals are stable. General appearance: The patient does not look in any pain or distress. Cardiovascular examination showed a regular rhythm with a systolic murmur at the right upper sternal border and apical area. Respiratory examination showed diminished breathing sounds bilaterally. Extremities examination showed no pedal edema. ASSESSMENT: 1. Small bowel obstruction. 2. Shortness of breath with exertion. 3. Permanent atrial fibrillation. 4. Status post mitral valve repair. PLAN: 1. I would hold on any surgery at this point of time. 2. Obtain a copy of the last stress test and last echo. 3. Follow up on the echocardiogram which is going to be performed today. 4. Further recommendations to follow that. MMODL / IJN: [id number] /
[2020-07-26 16:58] LABS: Glucose,Whole Blood 169 mg/dL (75-99)
[2020-07-26] MEDS: MORPHINE SULFATE 4 MG/ML SYRINGE IV PRN ×2 (18:13→23:07)
[2020-07-26] MEDS: LEVOTHYROXINE 25 MCG TAB PO SCH (20:20)
[2020-07-26] MEDS: ATORVASTATIN 10 MG TAB PO SCH (20:20)
[2020-07-26 20:40] LABS: Glucose,Whole Blood 155 mg/dL (75-99)
[2020-07-27 04:00] LABS: Glucose,Whole Blood 175 mg/dL (75-99)
[2020-07-27] MEDS: SODIUM CHLORIDE 0.9% 1,000 ML IV SCH (05:22)
[2020-07-27] MEDS: metroNIDAZOLE-NS PMX 500 MG in SALINE 1 100ML.BAG IVPB SCH ×3 (05:23→16:04)
[2020-07-27 06:49] LABS: Glucose,Whole Blood 165 mg/dL (75-99)
[2020-07-27] MEDS: PANTOPRAZOLE 40 MG TABLET PO SCH (07:27)
[2020-07-27] MEDS: GABAPENTIN 100 MG CAP PO SCH ×4 (07:27→22:26)
[2020-07-27] MEDS: METOPROLOL SUCCINATE (ER) 50 MG TAB.ER.24H PO SCH ×4 (07:27→22:27)
[2020-07-27] MEDS ORDERED: PANTOPRAZOLE 40 MG/10 ML VIAL IVP SCH (09:00)
[2020-07-27] MEDS: MORPHINE SULFATE 4 MG/ML SYRINGE IV PRN ×2 (09:07→22:25)
[2020-07-27 10:01] LABS: African American GFR (CKD) 67.6 (60.0-200.0); Anion Gap 12.9 mmol/L (4.00-12.00); BUN/Creat Ratio 23.33 Ratio (12.00-20.00); Calcium 9.1 mg/dL (8.7-10.3); Carbon Dioxide 25.1 mmol/L (21.6-31.8); Magnesium 2.1 mg/dL (1.5-2.4); Non-African American GFR(CKD) 58.3 (60.0-200.0); Potassium 3.5 mmol/L (3.5-5.5)
[2020-07-27] MEDS ORDERED: FUROSEMIDE 10 MG/ML 4 ML VIAL IV STA (10:57)
[2020-07-27] MEDS ORDERED: DEXTROSE 5%-0.45% NACL 1,000 ML IV SCH (11:00)
--- NOTE | 2020-07-27 11:00 | ECHOF ---
Referral Reason:Surgical clearance MEASUREMENTS -------- HEIGHT: 167.6 cm WEIGHT: 61.2 kg BP: 159/85 RVIDd: 3.4 cm (< 3.3) IVSd: 1.2 cm (0.6 - 1.1) LVIDd: 4.0 cm (3.9 - 5.3) LVPWd: 1.6 cm (0.6 - 1.1) IVSs: 1.6 cm LVIDs: 3.2 cm LVPWs: 1.6 cm LAESV Index (A-L): 38.37 ml/m Ao Diam: 3.2 cm (2.0 - 3.7) AV Cusp: 1.2 cm (1.5 - 2.6) LA Diam: 3.6 cm (2.7 - 3.8) AV maxP.70 mmHg AV meanP.12 mmHg AR PHT: 495 ms RAP: 5.00 mmHg RVSP: 74.61 mmHg FINDINGS -------- Sinus rhythm. This was a technically adequate study. The left ventricular size is normal. There is mild concentric left ventricular hypertrophy. Overa ll left ventricular systolic function is mild-moderately impaired with, an EF between 40 - 45 %. Se ptal wall motion is delayed and consistent with prior cardiac surgery. The right ventricle is mildly enlarged. LA is moderately dilated 34-39 ml/m2 The right atrium is mildly enlarged. Interatrial and interventricular septum intact. There is moderate aortic regurgitation. There is moderate aortic stenosis present. Peak/mean grad ient across the Aortic Valve is 34.70mmHg / 20.12mmHg. Normally functioning bioprosthetic mitral valve. Moderate to severe tricuspid regurgitation present. There is severe pulmonary hypertension. The r ight ventricular systolic pressure, as measured by Doppler, is 74.61mmHg. There is no pulmonic regurgitation present. The aortic root size is normal. IVC Not well visulized. There is no pericardial effusion. CONCLUSIONS -------- 1. The left ventricular size is normal. 2. There is mild concentric left ventricular hypertrophy. 3. Overall left ventricular systolic function is mild-moderately impaired with, an EF between 40 - 45 %. 4. The right ventricle is mildly enlarged. 5. LA is moderately dilated 34-39 ml/m2 6. The right atrium is mildly enlarged. 7. There is moderate aortic regurgitation. 8. There is moderate aortic stenosis present. 9. Peak/mean gradient across the Aortic Valve is 34.70mmHg / 20.12mmHg. 10. Normally functioning bioprosthetic mitral valve. 11. Moderate to severe tricuspid regurgitation present. 12. There is severe pulmonary hypertension. 13. The right ventricular systolic pressure, as measured by Doppler, is 74.61mmHg. DEVIL TENDER: Catie Jimenez RDCS
--- NOTE | 2020-07-27 11:00 | P.PN ---
Subjective Progress Note Date: 07/27/20 Patient is doing fairly well today. She denies any abdominal pain. No nausea or vomiting. She had a bowel movement prior to my presentation per her report. Awaiting nursing staff to confirm that is the case. No acute events overnight otherwise. Objective - Vital Signs Vital signs: Vital Signs Temp 98.7 F 07/27/20 07:31 Pulse 74 07/27/20 07:31 Resp 17 07/27/20 07:31 BP 159/80 07/27/20 07:31 Pulse Ox 95 07/27/20 07:31 Intake & Output 07/26/20 07/27/20 07/27/20 18:59 06:59 18:59 Intake Total 489.772 Output Total 410 140 Balance 79.772 -140 Intake: Intake, IV Titration 489.772 Amount Heparin Sod,Pork in 0.45% 119.772 NaCl 25,000 unit In 0.45 % NaCl 1 250ml.bag @ 12 UNITS/KG/HR 7.348 mls/hr IV .Q24H [facility] Rx#: [id number] Potassium Chloride 10 meq 20 In Water For Injection 1 100ml.bag @ 100 mls/hr IVPB Q1H [facility] Rx#: [id number] Sodium Chloride 0.9% 1, 250 000 ml @ 50 mls/hr IV . Q20H [facility] Rx#:[id number] metroNIDAZOLE-NS PMX 500 100 mg In Saline 1 100ml.bag @ 100 mls/hr IVPB Q6HR [facility] Rx#:[id number] Output: Gastric Drainage 410 140 Other: Voiding Method Toilet Toilet # Voids 4 2 - Exam General: The patient is awake and alert, in no distress Eye: there is normal conjunctiva bilaterally. Neck: The neck is supple, there is no JVD. Cardiovascular: Normal S1-S2, no S3-S4, no murmurs. Respiratory: Lungs clear to auscultation bilaterally Gastrointestinal: Abdomen is soft, nontender Musculoskeletal: There is no pedal edema. Neurological:. Speech is normal. Skin: Skin is warm and dry - Labs CBC & Chem 7: 07/26/20 05:37 07/27/20 05:39 Labs: Abnormal Lab Results - Last 24 Hours (Table) 07/26/20 07/26/20 07/26/20 Range/Units 11:34 16:57 20:38 Sodium (135-145) mmol/L Anion Gap (4.00-12.00) mmol/L Est GFR (CKD-EPI)NonAf (60.0-200.0) BUN/Creatinine Ratio (12.00-20.00) Ratio Glucose (70-110) mg/dL POC Glucose (mg/dL) 141 H 169 H 155 H (75-99) mg/dL 07/27/20 07/27/20 07/27/20 Range/Units 03:56 05:39 06:48 Sodium 147 H (135-145) mmol/L Anion Gap 12.90 H (4.00-12.00) mmol/L Est GFR (CKD-EPI)NonAf 58.3 L (60.0-200.0) BUN/Creatinine Ratio 23.33 H (12.00-20.00) Ratio Glucose 160 H (70-110) mg/dL POC Glucose (mg/dL) 175 H 165 H (75-99) mg/dL Assessment and Plan Assessment: This is a 84-year-old female with past medical history noted below who presented to the emergency room with abdominal pain and distention. Patient was evaluated in the ER and admitted to the hospital for further management of her medical problems noted below. Partial small bowel obstruction with concerns about underlying enteritis, appears to be improving clinically. -CT on presentation revealing partial SBO in left mid abdomen due to adhesions from adjacent surgical change and mild ill-defined fluid and fat stranding related to lower abdomen is present making underlying infectious process or enteritis not entirely excluded. -General surgery Dr. Oliver following. Considering surgery -Nothing by mouth -Continue NG tube to LIS for decompression. -Continued gentle hydration -IV antibiotics: Flagyl and Rocephin -Symptomatic care and pain management with Zofran as needed for nausea/vomiting and morphine as needed for pain. 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 Patient was seen and evaluated by cardiology, appreciate recommendations. Severe Pulmonary Hypertension with Chronic diastolic heart failure not in acute exacerbation -Echocardiogram completed 03/25/20 revealed a preserved EF of 50-55% with moderate aortic stenosis and moderate to severe pulmonary hypertension. -Hold Torsemide while patient is being kept nothing by mouth with gentle hydration. -I would order one-time dose of IV Lasix 40 mg today Hypernatremia -Change IV fluid to D5/half-normal saline at 75 mL per hour Hypertension Hyperlipidemia Hypothyroidism GERD The patient is admitted with an anticipated greater than 2 midnight stay for evaluation of abdominal pain with partial small bowel obstruction. CODE STATUS: Full code DVT prophylaxis: patient on Coumadin Discussed with: patient and RN Anticipated discharge date: Pending clinical course Anticipated discharge place: home A total of 35 minutes was spent on the care of this complex patient more than 50% of the time was spent in counseling and care coordination.
--- NOTE | 2020-07-27 11:18 | P.PN ---
Subjective Progress Note Date: 07/27/20 Principal diagnosis: Preoperative cardiac assessment This is an 84-year-old female patient who sees a proced tech out of the town with a past medical history significant for valvular heart disease and prior mitral valve replacement was performed several years ago, permanent atrial fibrillation, as well as multiple comorbid conditions was admitted to the hospital initially with abdominal discomfort and was diagnosed with small bowel obstruction and she's in process of having surgery. The patient was seen this morning. She denies any chest pain or chest discomfort but does have shortness of breath with exertion which has been chronic. She denies any dizziness or lightheadedness. Hemodynamically she is stable overall. An echocardiogram was performed today and revealed impaired LV function was EF around 40% was evidence of moderate aortic stenosis and moderate aortic regurgitation as well as normally functioning mitral valve prosthesis. From a cardiovascular standpoint of view, the patient can proceed with the surgery. She is at high risk for perioperative cardiovascular complication. The patient herself knows that. Objective - Vital Signs Vital signs: Vital Signs Temp 98.7 F 07/27/20 07:31 Pulse 74 07/27/20 07:31 Resp 17 07/27/20 07:31 BP 159/80 07/27/20 07:31 Pulse Ox 95 07/27/20 07:31 Intake & Output 07/26/20 07/27/20 07/27/20 18:59 06:59 18:59 Intake Total 489.772 Output Total 410 140 Balance 79.772 -140 Intake: Intake, IV Titration 489.772 Amount Heparin Sod,Pork in 0.45% 119.772 NaCl 25,000 unit In 0.45 % NaCl 1 250ml.bag @ 12 UNITS/KG/HR 7.348 mls/hr IV .Q24H [facility] Rx#: [id number] Potassium Chloride 10 meq 20 In Water For Injection 1 100ml.bag @ 100 mls/hr IVPB Q1H [facility] Rx#: [id number] Sodium Chloride 0.9% 1, 250 000 ml @ 50 mls/hr IV . Q20H [facility] Rx#:[id number] metroNIDAZOLE-NS PMX 500 100 mg In Saline 1 100ml.bag @ 100 mls/hr IVPB Q6HR [facility] Rx#:[id number] Output: Gastric Drainage 410 140 Other: Voiding Method Toilet Toilet # Voids 4 2 - Constitutional General appearance: Present: no acute distress - Respiratory Respiratory: bilateral: CTA - Cardiovascular Rhythm: regular Heart sounds: normal: S1, S2 Abnormal Heart Sounds: Present: systolic murmur - Labs CBC & Chem 7: 07/26/20 05:37 07/27/20 05:39 Labs: Abnormal Lab Results - Last 24 Hours (Table) 07/26/20 07/26/20 07/26/20 Range/Units 11:34 16:57 20:38 Sodium (135-145) mmol/L Anion Gap (4.00-12.00) mmol/L Est GFR (CKD-EPI)NonAf (60.0-200.0) BUN/Creatinine Ratio (12.00-20.00) Ratio Glucose (70-110) mg/dL POC Glucose (mg/dL) 141 H 169 H 155 H (75-99) mg/dL 07/27/20 07/27/20 07/27/20 Range/Units 03:56 05:39 06:48 Sodium 147 H (135-145) mmol/L Anion Gap 12.90 H (4.00-12.00) mmol/L Est GFR (CKD-EPI)NonAf 58.3 L (60.0-200.0) BUN/Creatinine Ratio 23.33 H (12.00-20.00) Ratio Glucose 160 H (70-110) mg/dL POC Glucose (mg/dL) 175 H 165 H (75-99) mg/dL Assessment and Plan Assessment: Assessment #1 small bowel obstruction #2 permanent atrial fibrillation #3 valvular heart disease as described above Plan #1 continue the current medical regimen #2 the patient can proceed with the surgery knowing that she is under high risk.
[2020-07-27 11:20] LABS: INR 2.41 (0.90-1.11); Prothrombin Time 24.8 sec (9.9-11.9)
[2020-07-27 11:23] LABS: Glucose,Whole Blood 164 mg/dL (75-99)
[2020-07-27] MEDS ORDERED: GLYCOPYRROLATE 0.2 MG/ML 2 ML VIAL ONE (11:39)
[2020-07-27] MEDS ORDERED: hydrALAZINE HCL 20 MG/ML 1 ML VIAL ONE (11:39)
[2020-07-27] MEDS ORDERED: ROCURONIUM 10 MG/ML (10 ML VIAL) IV ONE (11:39)
[2020-07-27] MEDS ORDERED: SUCCINYLCHOLINE CHLORIDE 100 MG/5 ML SYR IV ONE (11:39)
[2020-07-27] MEDS ORDERED: NEOSTIGMINE 1 MG/ML 10 ML VIAL ONE (11:39)
[2020-07-27] MEDS ORDERED: LIDOCAINE 1% INJ 10MG/ML (20 ML MDV) ONE (11:39)
[2020-07-27] MEDS ORDERED: fentaNYL (PF) 50 MCG/ML 2 ML AMP ONE (11:39)
[2020-07-27] MEDS ORDERED: HYDROmorphone (PF) 1 MG/ML ONE (11:39)
[2020-07-27] MEDS ORDERED: ETOMIDATE 2 MG/ML 10 ML VIAL ONE (11:39)
[2020-07-27] MEDS ORDERED: SODIUM CHLORIDE 0.9% 1,000 ML IV ONE ×2 (12:01)
[2020-07-27] MEDS ORDERED: LACTATED RINGERS 1,000 ML IV ONE ×2 (12:17)
[2020-07-27] MEDS ORDERED: METOCLOPRAMIDE 5 MG/ML 2 ML VIAL IVP PRN (12:42)
--- NOTE | 2020-07-27 12:42 | P.OP ---
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 She received general anesthesia. Her abdomen was prepped and draped usual sterile fashion. The abdomen was entered through a midline midline incision. The trochars used to divide the abdominal wall. The adhesions to the anterior abdominal wall were lysed with sharp dissection. Approximately 15 minutes of operative time used to lyse adhesions. The small bowel appeared dilated. The small bowel was run and there was a stricture just proximal to the previous small bowel anastomosis. It was decided perform a small bowel resection. The bowel was transected approximately distally with a GI stapler and then using the intensive device the bowel was mesentery was divided. The specimens of pathology. A [id number] functional end-to-end staple anastomosis then created using SONALI and TA stapler. 3-0 GI silk suture was used as a crotch stitch. The mesentery the defect was closed using 3-0 GI silk suture. The abdomen. This is no bleeding seen. The fascia was closed with looped #1 PDS suture. Skin was closed azalea. Patient top she will was sent to recovery room stable condition.
[2020-07-27] MEDS ORDERED: HYDROmorphone 0.5 MG/0.5 ML SYRINGE IVP ONE ×6 (12:50→13:08)
[2020-07-27] MEDS ORDERED: ONDANSETRON 4 MG/2 ML VIAL IVP ONE (12:53)
[2020-07-27 14:31] LABS: Anisocytosis Slight; Basophils % (A) 0 %; Eosinophils % (A) 0 %; HCT 38.4 % (34.0-46.0); HGB 11.7 gm/dL (11.4-16.0); Hypochromasia Marked; Lymphocytes # (A) 0.6 k/uL (1.0-4.8); Lymphocytes % (A) 6 %; MCH 26.9 pg (25.0-35.0); MCHC 30.6 g/dL (31.0-37.0); MCV 87.9 fL (80.0-100.0); Mean Platelet Volume 7.7; Monocytes # (A) 0.5 k/uL (0-1.0); Monocytes % (A) 5 %; Neutrophils # (A) 9.2 k/uL (1.3-7.7); Neutrophils % (A) 88 %; Platelet Count 226 k/uL (150-450); RBC 4.37 m/uL (3.80-5.40); RDW 17.1 % (11.5-15.5); WBC 10.4 k/uL (3.8-10.6)
[2020-07-27] MEDS: D5-0.45% NACL WITH KCL 20MEQ/L 1,000 ML IV SCH ×2 (14:43→22:43)
[2020-07-27 14:49] LABS: African American GFR (CKD) 81 (>60 ml/min/1.73 sqM); Anion Gap 13 mmol/L; Blood Urea Nitrogen 20 mg/dL (7-17); Calcium 9.2 mg/dL (8.4-10.2); Carbon Dioxide 27 mmol/L (22-30); Chloride 106 mmol/L (98-107); Glucose 201 mg/dL (74-99); Non-African American GFR(CKD) 70 (>60 ml/min/1.73 sqM); Potassium 3.4 mmol/L (3.5-5.1); Sodium 146 mmol/L (137-145)
[2020-07-27] MEDS: ONDANSETRON 4 MG/2 ML VIAL IVP PRN ×2 (16:04→22:25)
[2020-07-27 16:44] LABS: Glucose,Whole Blood 250 mg/dL (75-99)
[2020-07-27 21:19] LABS: Glucose,Whole Blood 248 mg/dL (75-99)
[2020-07-27] MEDS: FAMOTIDINE 20 MG/2 ML VIAL IV SCH (22:25)
[2020-07-27] MEDS: ATORVASTATIN 10 MG TAB PO SCH (22:26)
[2020-07-27] MEDS: LEVOTHYROXINE 25 MCG TAB PO SCH (22:26)
[2020-07-28] MEDS: metroNIDAZOLE-NS PMX 500 MG in SALINE 1 100ML.BAG IVPB SCH ×2 (00:07→06:11)
[2020-07-28 02:18] LABS: Glucose,Whole Blood 250 mg/dL (75-99)
[2020-07-28] MEDS ORDERED: SODIUM CHLORIDE 0.9% 500 ML 500 ML IV ONE (04:00)
--- NOTE | 2020-07-28 04:17 | XR ---
EXAM: XR Chest, 1 View CLINICAL HISTORY: ITS.REASON XR Reason: possible fluid overload TECHNIQUE: Frontal view of the chest. COMPARISON: 05/29/2020 IMPRESSION: Minimal vascular congestion. Left-sided pleural effusion. Likely overlying atelectasis. Unchanged heart size. ED material enters into the stomach projects off the field of view.
[2020-07-28] MEDS: D5-0.45% NACL WITH KCL 20MEQ/L 1,000 ML IV SCH (06:10)
[2020-07-28 07:01] LABS: Glucose,Whole Blood 238 mg/dL (75-99)
[2020-07-28 08:03] LABS: African American GFR (CKD) 57 (>60 ml/min/1.73 sqM); Anion Gap 6 mmol/L; Blood Urea Nitrogen 23 mg/dL (7-17); Carbon Dioxide 28 mmol/L (22-30); Chloride 109 mmol/L (98-107); Glucose 219 mg/dL (74-99); Non-African American GFR(CKD) 49 (>60 ml/min/1.73 sqM); Potassium 3.4 mmol/L (3.5-5.1); Sodium 143 mmol/L (137-145)
[2020-07-28 08:05] LABS: Anisocytosis Slight; Basophils % (A) 0 %; Eosinophils % (A) 0 %; HCT 26.5 % (34.0-46.0); Hypochromasia Marked; Lymphocytes # (A) 0.5 k/uL (1.0-4.8); Lymphocytes % (A) 4 %; MCH 26.5 pg (25.0-35.0); MCHC 29.6 g/dL (31.0-37.0); MCV 89.7 fL (80.0-100.0); Monocytes # (A) 0.6 k/uL (0-1.0); Monocytes % (A) 4 %; Neutrophils # (A) 11.9 k/uL (1.3-7.7); Neutrophils % (A) 91 %; Platelet Count 207 k/uL (150-450); RBC 2.96 m/uL (3.80-5.40); RDW 17.2 % (11.5-15.5); WBC 13.1 k/uL (3.8-10.6)
[2020-07-28 08:08] LABS: HGB 7.8 gm/dL (11.4-16.0)
[2020-07-28] MEDS: FAMOTIDINE 20 MG/2 ML VIAL IV SCH (08:23)
[2020-07-28] MEDS: METOPROLOL SUCCINATE (ER) 50 MG TAB.ER.24H PO SCH ×3 (08:23→21:45)
[2020-07-28] MEDS: GABAPENTIN 100 MG CAP PO SCH ×3 (08:23→21:45)
[2020-07-28] MEDS: SODIUM CHLORIDE 0.9% 1,000 ML IV SCH ×2 (08:24→19:04)
[2020-07-28 08:54] LABS: INR 2.71 (0.90-1.11); Prothrombin Time 27.7 sec (9.9-11.9)
[2020-07-28] MEDS ORDERED: POTASSIUM CHLORIDE ER 20 MEQ TAB.ER PO STA (09:54)
[2020-07-28] MEDS: MORPHINE SULFATE 4 MG/ML SYRINGE IVP PRN ×2 (10:27→17:24)
[2020-07-28] MEDS ORDERED: DIGOXIN 250 MCG/ML 2 ML AMP IVP ONE ×2 (11:00→18:00)
[2020-07-28] MEDS ORDERED: FUROSEMIDE 10 MG/ML 4 ML VIAL IV STA (11:00)
--- NOTE | 2020-07-28 11:00 | P.PN ---
Subjective Progress Note Date: 07/28/20 Patient is doing well today. She appeared more confused today compared to prior days that I seen her. Her pain is relatively well-controlled. She is not passing gas as of yet. No acute events overnight reported by nursing staff. Objective - Vital Signs Vital signs: Vital Signs Temp 98.1 F 07/28/20 07:00 Pulse 106 H 07/28/20 07:55 Resp 17 07/28/20 07:55 BP 96/60 07/28/20 07:00 Pulse Ox 95 07/28/20 07:00 Intake & Output 07/27/20 07/28/20 07/28/20 18:59 06:59 18:59 Intake Total 400 Output Total 1160 475 Balance -760 -475 Intake: IV 400 Output: Gastric Drainage 100 100 Urine 1020 375 Estimated Blood Loss 40 Other: Voiding Method Indwelling Catheter Indwelling Catheter - Exam General: The patient is awake and alert, in no distress Eye: there is normal conjunctiva bilaterally. Neck: The neck is supple, there is no JVD. Cardiovascular: Normal S1-S2, no S3-S4, no murmurs. Respiratory: Lungs clear to auscultation bilaterally Gastrointestinal: Abdomen is soft, there is mild to moderate tenderness to palpation throughout the abdomen Musculoskeletal: There is no pedal edema. Neurological:. Speech is normal. Skin: Skin is warm and dry - Labs CBC & Chem 7: 07/28/20 05:32 07/28/20 05:32 Labs: Abnormal Lab Results - Last 24 Hours (Table) 07/27/20 07/27/20 07/27/20 Range/Units 05:39 11:22 14:16 WBC (3.8-10.6) k/uL RBC (3.80-5.40) m/uL Hgb (11.4-16.0) gm/dL Hct (34.0-46.0) % MCHC 30.6 L (31.0-37.0) g/dL RDW 17.1 H (11.5-15.5) % Neutrophils # 9.2 H (1.3-7.7) k/uL Lymphocytes # 0.6 L (1.0-4.8) k/uL PT 24.8 H (9.9-11.9) sec INR 2.41 H (0.90-1.11) Sodium (137-145) mmol/L Potassium (3.5-5.1) mmol/L Chloride (98-107) mmol/L BUN (7-17) mg/dL Glucose (74-99) mg/dL POC Glucose (mg/dL) 164 H (75-99) mg/dL Calcium (8.4-10.2) mg/dL 07/27/20 07/27/20 07/27/20 Range/Units 14:16 16:43 21:18 WBC (3.8-10.6) k/uL RBC (3.80-5.40) m/uL Hgb (11.4-16.0) gm/dL Hct (34.0-46.0) % MCHC (31.0-37.0) g/dL RDW (11.5-15.5) % Neutrophils # (1.3-7.7) k/uL Lymphocytes # (1.0-4.8) k/uL PT (9.9-11.9) sec INR (0.90-1.11) Sodium 146 H (137-145) mmol/L Potassium 3.4 L (3.5-5.1) mmol/L Chloride (98-107) mmol/L BUN 20 H (7-17) mg/dL Glucose 201 H (74-99) mg/dL POC Glucose (mg/dL) 250 H 248 H (75-99) mg/dL Calcium (8.4-10.2) mg/dL 07/28/20 07/28/20 07/28/20 Range/Units 02:14 05:32 05:32 WBC 13.1 H (3.8-10.6) k/uL RBC 2.96 L (3.80-5.40) m/uL Hgb 7.8 L D (11.4-16.0) gm/dL Hct 26.5 L (34.0-46.0) % MCHC 29.6 L (31.0-37.0) g/dL RDW 17.2 H (11.5-15.5) % Neutrophils # 11.9 H (1.3-7.7) k/uL Lymphocytes # 0.5 L (1.0-4.8) k/uL PT 27.7 H (9.9-11.9) sec INR 2.71 H (0.90-1.11) Sodium (137-145) mmol/L Potassium (3.5-5.1) mmol/L Chloride (98-107) mmol/L BUN (7-17) mg/dL Glucose (74-99) mg/dL POC Glucose (mg/dL) 250 H (75-99) mg/dL Calcium (8.4-10.2) mg/dL 07/28/20 07/28/20 Range/Units 05:32 06:51 WBC (3.8-10.6) k/uL RBC (3.80-5.40) m/uL Hgb (11.4-16.0) gm/dL Hct (34.0-46.0) % MCHC (31.0-37.0) g/dL RDW (11.5-15.5) % Neutrophils # (1.3-7.7) k/uL Lymphocytes # (1.0-4.8) k/uL PT (9.9-11.9) sec INR (0.90-1.11) Sodium (137-145) mmol/L Potassium 3.4 L (3.5-5.1) mmol/L Chloride 109 H (98-107) mmol/L BUN 23 H (7-17) mg/dL Glucose 219 H (74-99) mg/dL POC Glucose (mg/dL) 238 H (75-99) mg/dL Calcium 8.0 L (8.4-10.2) mg/dL Assessment and Plan Assessment: This is a 84-year-old female with past medical history noted below who presented to the emergency room with abdominal pain and distention. Patient was evaluated in the ER and admitted to the hospital for further management of her medical problems noted below. Partial small bowel obstruction with concerns about underlying enteritis: - Postoperative day #1 status post exploratory laparoscopy with lysis of adhesion and small bowel resection -Patient received IV antibiotic with ceftriaxone and Flagyl since admission which will be discontinued as there is no evidence of ongoing infection -CT on presentation revealing partial SBO in left mid abdomen due to adhesions from adjacent surgical change and mild ill-defined fluid and fat stranding related to lower abdomen is present making underlying infectious process or enteritis not entirely excluded. -NG tube in place. Postoperative care per general surgery. 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 Patient was seen and evaluated by cardiology, appreciate recommendations. Severe Pulmonary Hypertension with Chronic diastolic heart failure not in acute exacerbation -Echocardiogram completed 03/25/20 revealed a preserved EF of 50-55% with moderate aortic stenosis and moderate to severe pulmonary hypertension. -Hold Torsemide while patient is being kept nothing by mouth with gentle hydration. -I have been giving her IV Lasix push once a day since admission I would hold today postoperatively Hypertension Hyperlipidemia Hypothyroidism GERD CODE STATUS: Full code DVT prophylaxis: patient on Coumadin Discussed with: patient and RN Anticipated discharge date: Pending clinical course Anticipated discharge place: home A total of 35 minutes was spent on the care of this complex patient more than 50% of the time was spent in counseling and care coordination.
[2020-07-28 11:31] LABS: Glucose,Whole Blood 179 mg/dL (75-99)
--- NOTE | 2020-07-28 12:37 | P.PN ---
Subjective Progress Note Date: 07/28/20 CHIEF COMPLAINT: Abdominal pain HISTORY OF PRESENT ILLNESS: Patient is followed for small bowel obstruction secondary to small bowel stricture. She is postop day #1 status post exploratory laparotomy, lysis of adhesion and small bowel resection. Patient does report that her abdominal pain is controlled. She has NG tube in place with 140 mL of greenish fluid output through the night. She denies any bowel movement or gas. Denies any nausea. Afebrile. WBC 13.1 hemoglobin did drop from 11.7-7.8. Potassium 3.4 magnesium 2.0 INR 2.7 cardiology service did give patient a dose of IV Lasix. Patient's urine is dark and blood pressures on the lower side Chest x-ray minimal vascular congestion, left-sided pleural effusion, likely overlying atelectasis PHYSICAL EXAM: VITAL SIGNS: Reviewed. GENERAL: Well-developed in no acute distress. HEENT: No sclera icterus. Extraocular movements grossly intact. Moist buccal mucosa. Head is atraumatic, normocephalic. ABDOMEN: Soft. Nondistended. Nontender. NEUROLOGIC: Alert and oriented. Slightly confused. Cranial nerves II through XII grossly intact. ASSESSMENT: 1. Small bowel resection secondary to small bowel stricture status post explor atory laparotomy, lysis of adhesions and small bowel resection 2. Hypokalemia PLAN: -Continue NG tube for decompression -Keep patient nothing by mouth -Replace patient's potassium -Continue pain medication as needed -We'll give patient a 2 L lactate ringer fluid bolus over 4 hours Physician Tone Artist Apprentice note has been reviewed by physician. Signing provider agrees with the documented findings, assessment, and plan of care. Objective - Vital Signs Vital signs: Vital Signs Temp 98.1 F 07/28/20 07:00 Pulse 106 H 07/28/20 07:55 Resp 17 07/28/20 07:55 BP 96/60 07/28/20 07:00 Pulse Ox 95 07/28/20 07:00 Intake & Output 07/27/20 07/28/20 07/28/20 18:59 06:59 18:59 Intake Total 400 Output Total 1160 475 Balance -760 -475 Intake: IV 400 Output: Gastric Drainage 100 100 Urine 1020 375 Estimated Blood Loss 40 Other: Voiding Method Indwelling Catheter Indwelling Catheter - Labs CBC & Chem 7: 07/28/20 05:32 07/28/20 05:32 Labs: Abnormal Lab Results - Last 24 Hours (Table) 07/27/20 07/27/20 07/27/20 Range/Units 14:16 14:16 16:43 WBC (3.8-10.6) k/uL RBC (3.80-5.40) m/uL Hgb (11.4-16.0) gm/dL Hct (34.0-46.0) % MCHC 30.6 L (31.0-37.0) g/dL RDW 17.1 H (11.5-15.5) % Neutrophils # 9.2 H (1.3-7.7) k/uL Lymphocytes # 0.6 L (1.0-4.8) k/uL PT (9.9-11.9) sec INR (0.90-1.11) Sodium 146 H (137-145) mmol/L Potassium 3.4 L (3.5-5.1) mmol/L Chloride (98-107) mmol/L BUN 20 H (7-17) mg/dL Glucose 201 H (74-99) mg/dL POC Glucose (mg/dL) 250 H (75-99) mg/dL Calcium (8.4-10.2) mg/dL 07/27/20 07/28/20 07/28/20 Range/Units 21:18 02:14 05:32 WBC (3.8-10.6) k/uL RBC (3.80-5.40) m/uL Hgb (11.4-16.0) gm/dL Hct (34.0-46.0) % MCHC (31.0-37.0) g/dL RDW (11.5-15.5) % Neutrophils # (1.3-7.7) k/uL Lymphocytes # (1.0-4.8) k/uL PT 27.7 H (9.9-11.9) sec INR 2.71 H (0.90-1.11) Sodium (137-145) mmol/L Potassium (3.5-5.1) mmol/L Chloride (98-107) mmol/L BUN (7-17) mg/dL Glucose (74-99) mg/dL POC Glucose (mg/dL) 248 H 250 H (75-99) mg/dL Calcium (8.4-10.2) mg/dL 07/28/20 07/28/20 07/28/20 Range/Units 05:32 05:32 06:51 WBC 13.1 H (3.8-10.6) k/uL RBC 2.96 L (3.80-5.40) m/uL Hgb 7.8 L D (11.4-16.0) gm/dL Hct 26.5 L (34.0-46.0) % MCHC 29.6 L (31.0-37.0) g/dL RDW 17.2 H (11.5-15.5) % Neutrophils # 11.9 H (1.3-7.7) k/uL Lymphocytes # 0.5 L (1.0-4.8) k/uL PT (9.9-11.9) sec INR (0.90-1.11) Sodium (137-145) mmol/L Potassium 3.4 L (3.5-5.1) mmol/L Chloride 109 H (98-107) mmol/L BUN 23 H (7-17) mg/dL Glucose 219 H (74-99) mg/dL POC Glucose (mg/dL) 238 H (75-99) mg/dL Calcium 8.0 L (8.4-10.2) mg/dL 07/28/20 Range/Units 11:29 WBC (3.8-10.6) k/uL RBC (3.80-5.40) m/uL Hgb (11.4-16.0) gm/dL Hct (34.0-46.0) % MCHC (31.0-37.0) g/dL RDW (11.5-15.5) % Neutrophils # (1.3-7.7) k/uL Lymphocytes # (1.0-4.8) k/uL PT (9.9-11.9) sec INR (0.90-1.11) Sodium (137-145) mmol/L Potassium (3.5-5.1) mmol/L Chloride (98-107) mmol/L BUN (7-17) mg/dL Glucose (74-99) mg/dL POC Glucose (mg/dL) 179 H (75-99) mg/dL Calcium (8.4-10.2) mg/dL
--- NOTE | 2020-07-28 12:41 | P.PN ---
Subjective Progress Note Date: 07/28/20 HISTORY OF PRESENT ILLNESS: Patient is status post exploratory laparotomy, lysis of adhesions, and small bowel resection secondary to small bowel obstruction due to small bowel stricture with Dr. Oliver. Postop day #1. Patient examined this morning at the bedside. She denies chest pain or pressure. Denies shortness of breath. She has a congested cough upon examination. NG tube with bilious drainage. Wallace catheter noted with dark urine output. Patient's INR 2.71 today. Coumadin remains on hold. Hemoglobin 7.8 today, down from 11.7 yesterday. Echocardiogram completed revealed ejection fraction 40-45%, moderate aortic regurgitation, moderate aortic stenosis, moderate to severe tricuspid regurgitation, and severe pulmonary hypertension PHYSICAL EXAM: VITAL SIGNS: Reviewed. GENERAL: Well-developed in no acute distress. NECK: Supple. No JVD or thyromegaly LUNGS: Respirations even and unlabored. Lungs diminished. Congested cough noted. HEART: Irregular rate and rhythm. S1 and S2 heard. Systolic murmur noted. EXTREMITIES: Normal range of motion. No clubbing or cyanosis. Peripheral pulses intact. 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 Oliver Coumadin remains on hold. Resume when cleared by general surgery. Monitor hemoglobin Give lasix 40mg IVP x 1 dose Continue telemetry monitoring Give Digoxin 125mcg IVP now and repeat dose in 6 hours Further recommendations pending patient course Nurse practitioner note has been reviewed by physician. Signing provider agrees with the documented findings, assessment, and plan of care. Objective - Vital Signs Vital signs: Vital Signs Temp 98.1 F 07/28/20 07:00 Pulse 106 H 07/28/20 07:55 Resp 17 07/28/20 07:55 BP 96/60 07/28/20 07:00 Pulse Ox 95 07/28/20 07:00 Intake & Output 07/27/20 07/28/20 07/28/20 18:59 06:59 18:59 Intake Total 400 Output Total 1160 475 Balance -760 -475 Intake: IV 400 Output: Gastric Drainage 100 100 Urine 1020 375 Estimated Blood Loss 40 Other: Voiding Method Indwelling Catheter Indwelling Catheter - Labs CBC & Chem 7: 07/28/20 05:32 07/28/20 05:32 Labs: Abnormal Lab Results - Last 24 Hours (Table) 07/27/20 07/27/20 07/27/20 Range/Units 14:16 14:16 16:43 WBC (3.8-10.6) k/uL RBC (3.80-5.40) m/uL Hgb (11.4-16.0) gm/dL Hct (34.0-46.0) % MCHC 30.6 L (31.0-37.0) g/dL RDW 17.1 H (11.5-15.5) % Neutrophils # 9.2 H (1.3-7.7) k/uL Lymphocytes # 0.6 L (1.0-4.8) k/uL PT (9.9-11.9) sec INR (0.90-1.11) Sodium 146 H (137-145) mmol/L Potassium 3.4 L (3.5-5.1) mmol/L Chloride (98-107) mmol/L BUN 20 H (7-17) mg/dL Glucose 201 H (74-99) mg/dL POC Glucose (mg/dL) 250 H (75-99) mg/dL Calcium (8.4-10.2) mg/dL 07/27/20 07/28/20 07/28/20 Range/Units 21:18 02:14 05:32 WBC (3.8-10.6) k/uL RBC (3.80-5.40) m/uL Hgb (11.4-16.0) gm/dL Hct (34.0-46.0) % MCHC (31.0-37.0) g/dL RDW (11.5-15.5) % Neutrophils # (1.3-7.7) k/uL Lymphocytes # (1.0-4.8) k/uL PT 27.7 H (9.9-11.9) sec INR 2.71 H (0.90-1.11) Sodium (137-145) mmol/L Potassium (3.5-5.1) mmol/L Chloride (98-107) mmol/L BUN (7-17) mg/dL Glucose (74-99) mg/dL POC Glucose (mg/dL) 248 H 250 H (75-99) mg/dL Calcium (8.4-10.2) mg/dL 07/28/20 07/28/20 07/28/20 Range/Units 05:32 05:32 06:51 WBC 13.1 H (3.8-10.6) k/uL RBC 2.96 L (3.80-5.40) m/uL Hgb 7.8 L D (11.4-16.0) gm/dL Hct 26.5 L (34.0-46.0) % MCHC 29.6 L (31.0-37.0) g/dL RDW 17.2 H (11.5-15.5) % Neutrophils # 11.9 H (1.3-7.7) k/uL Lymphocytes # 0.5 L (1.0-4.8) k/uL PT (9.9-11.9) sec INR (0.90-1.11) Sodium (137-145) mmol/L Potassium 3.4 L (3.5-5.1) mmol/L Chloride 109 H (98-107) mmol/L BUN 23 H (7-17) mg/dL Glucose 219 H (74-99) mg/dL POC Glucose (mg/dL) 238 H (75-99) mg/dL Calcium 8.0 L (8.4-10.2) mg/dL 07/28/20 Range/Units 11:29 WBC (3.8-10.6) k/uL RBC (3.80-5.40) m/uL Hgb (11.4-16.0) gm/dL Hct (34.0-46.0) % MCHC (31.0-37.0) g/dL RDW (11.5-15.5) % Neutrophils # (1.3-7.7) k/uL Lymphocytes # (1.0-4.8) k/uL PT (9.9-11.9) sec INR (0.90-1.11) Sodium (137-145) mmol/L Potassium (3.5-5.1) mmol/L Chloride (98-107) mmol/L BUN (7-17) mg/dL Glucose (74-99) mg/dL POC Glucose (mg/dL) 179 H (75-99) mg/dL Calcium (8.4-10.2) mg/dL
[2020-07-28] MEDS: LACTATED RINGERS 1,000 ML IV SCH ×7 (13:31→18:09)
[2020-07-28 16:34] LABS: Glucose,Whole Blood 160 mg/dL (75-99)
[2020-07-28 20:40] LABS: Glucose,Whole Blood 148 mg/dL (75-99)
[2020-07-28] MEDS: LEVOTHYROXINE 25 MCG TAB PO SCH (21:45)
[2020-07-28] MEDS: ATORVASTATIN 10 MG TAB PO SCH (21:45)
[2020-07-29] MEDS: SODIUM CHLORIDE 0.9% 1,000 ML IV SCH ×3 (01:30→18:50)
[2020-07-29 02:41] LABS: Glucose,Whole Blood 134 mg/dL (75-99)
[2020-07-29 07:00] LABS: Glucose,Whole Blood 152 mg/dL (75-99)
[2020-07-29] MEDS: FAMOTIDINE 20 MG/2 ML VIAL IV SCH (08:02)
[2020-07-29] MEDS: METOPROLOL SUCCINATE (ER) 50 MG TAB.ER.24H PO SCH ×3 (08:02→20:44)
[2020-07-29] MEDS: GABAPENTIN 100 MG CAP PO SCH ×3 (08:03→20:44)
[2020-07-29] MEDS: SYMBICORT 160-4.5 MCG INHALER INHALATION PRN (08:30)
[2020-07-29] MEDS: MORPHINE SULFATE 4 MG/ML SYRINGE IVP PRN (08:34)
[2020-07-29 09:17] LABS: Basophils # (A) 0.02 X 10*3/uL (0.00-0.10); Basophils % (A) 0.1 %; Eosinophils # (A) 0.03 X 10*3/uL (0.04-0.35); Eosinophils % (A) 0.2 %; HCT 24.5 % (37.2-46.3); HGB 7.1 g/dL (12.0-15.0); INR 2.65 (0.90-1.11); Lymphocytes # (A) 0.52 X 10*3/uL (0.90-5.00); Lymphocytes % (A) 3.6 %; MCH 26.8 pg (27.0-32.0); MCV 92.5 fL (80.0-97.0); Mean Platelet Volume 10.6 fL (9.5-12.2); Monocytes # (A) 1.01 X 10*3/uL (0.20-1.00); Monocytes % (A) 6.9 %; Neutrophils # (A) 12.97 X 10*3/uL (1.80-7.70); Neutrophils % (A) 88.8 %; Platelet Count 206 X 10*3/uL (140-440); Prothrombin Time 27.1 sec (9.9-11.9); RBC 2.65 X 10*6/uL (4.10-5.20); RDW 18.5 % (11.5-14.5); WBC 14.61 X 10*3/uL (4.50-10.00)
[2020-07-29 09:42] LABS: African American GFR (CKD) 47.7 (60.0-200.0); Anion Gap 8.6 mmol/L (4.00-12.00); BUN/Creat Ratio 24.17 Ratio (12.00-20.00); Calcium 8.3 mg/dL (8.7-10.3); Carbon Dioxide 28.4 mmol/L (21.6-31.8); Non-African American GFR(CKD) 41.2 (60.0-200.0); Potassium 3.8 mmol/L (3.5-5.5)
[2020-07-29 11:29] LABS: Glucose,Whole Blood 151 mg/dL (75-99)
[2020-07-29] MEDS: LACTATED RINGERS 1,000 ML IV SCH ×2 (12:25→14:18)
--- NOTE | 2020-07-29 12:33 | P.PN ---
Subjective Progress Note Date: 07/29/20 HISTORY OF PRESENT ILLNESS: 07/28/2020 Patient is status post exploratory laparotomy, lysis of adhesions, and small bowel resection secondary to small bowel obstruction due to small bowel stricture with Dr. Oliver. Postop day #1. Patient examined this morning at the bedside. She denies chest pain or pressure. Denies shortness of breath. She has a congested cough upon examination. NG tube with bilious drainage. Wallace catheter noted with dark urine output. Patient's INR 2.71 today. Coumadin remains on hold. Hemoglobin 7.8 today, down from 11.7 yesterday. Echocardiogram completed revealed ejection fraction 40-45%, moderate aortic regurgitation, moderate aortic stenosis, moderate to severe tricuspid regurgitation, and severe pulmonary hypertension 07/29/2020 Patient examined this morning at the bedside. NG tube has been discontinued. Patient received a 2 L fluid bolus per Gen. surgery yesterday. Telemetry reveals paced rhythm in the 70s. Blood pressure 124/76. She is afebrile. Urine output over the last 24 hours is 630 mL. Hemoglobin 7.1 today, down from 7.8 yesterday and 11.7 preoperatively. INR 2.65. Coumadin remains on hold. PHYSICAL EXAM: VITAL SIGNS: Reviewed. GENERAL: Well-developed in no acute distress. NECK: Supple. No JVD or thyromegaly LUNGS: Respirations even and unlabored. Lungs diminished. HEART: Telemetry reveals paced rhythm. S1 and S2 heard. Systolic murmur noted. EXTREMITIES: Normal range of motion. No clubbing or cyanosis. Peripheral pulses intact. 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 Oliver Coumadin remains on hold. Resume when cleared by general surgery. Monitor hemoglobin Continue telemetry monitoring Further recommendations pending patient course Nurse practitioner note has been reviewed by physician. Signing provider agrees with the documented findings, assessment, and plan of care. Objective - Vital Signs Vital signs: Vital Signs Temp 97.9 F 07/29/20 06:40 Pulse 108 H 07/29/20 07:50 Resp 16 07/29/20 07:50 BP 124/76 07/29/20 06:40 Pulse Ox 99 07/29/20 06:40 Intake & Output 07/28/20 07/29/20 07/29/20 18:59 06:59 18:59 Output Total 310 320 Balance -310 -320 Output: Gastric Drainage 110 70 Urine 200 250 Other: Voiding Method Indwelling Catheter Indwelling Catheter - Labs CBC & Chem 7: 07/29/20 05:50 07/29/20 05:50 Labs: Abnormal Lab Results - Last 24 Hours (Table) 07/28/20 07/28/20 07/28/20 Range/Units 11:29 16:32 20:38 WBC (4.50-10.00) X 10*3/uL RBC (4.10-5.20) X 10*6/uL Hgb (12.0-15.0) g/dL Hct (37.2-46.3) % MCH (27.0-32.0) pg MCHC (32.0-37.0) g/dL RDW (11.5-14.5) % Absolute Nucleated RBC (0.00-0.00) X 10*3/uL Immature Gran # (0.00-0.04) X 10*3/uL Neutrophils # (1.80-7.70) X 10*3/uL Lymphocytes # (0.90-5.00) X 10*3/uL Monocytes # (0.20-1.00) X 10*3/uL Eosinophils # (0.04-0.35) X 10*3/uL NRBC/100 WBC Diff (0.0-0.0) /100 WBCS PT (9.9-11.9) sec INR (0.90-1.11) Sodium (135-145) mmol/L Chloride (96-109) mmol/L BUN (9.0-27.0) mg/dL Est GFR (CKD-EPI)AfAm (60.0-200.0) Est GFR (CKD-EPI)NonAf (60.0-200.0) BUN/Creatinine Ratio (12.00-20.00) Ratio Glucose (70-110) mg/dL POC Glucose (mg/dL) 179 H 160 H 148 H (75-99) mg/dL Calcium (8.7-10.3) mg/dL 07/29/20 07/29/20 07/29/20 Range/Units 02:28 05:50 05:50 WBC 14.61 H (4.50-10.00) X 10*3/uL RBC 2.65 L (4.10-5.20) X 10*6/uL Hgb 7.1 L (12.0-15.0) g/dL Hct 24.5 L (37.2-46.3) % MCH 26.8 L (27.0-32.0) pg MCHC 29.0 L (32.0-37.0) g/dL RDW 18.5 H (11.5-14.5) % Absolute Nucleated RBC 0.05 H (0.00-0.00) X 10*3/uL Immature Gran # 0.06 H (0.00-0.04) X 10*3/uL Neutrophils # 12.97 H (1.80-7.70) X 10*3/uL Lymphocytes # 0.52 L (0.90-5.00) X 10*3/uL Monocytes # 1.01 H (0.20-1.00) X 10*3/uL Eosinophils # 0.03 L (0.04-0.35) X 10*3/uL NRBC/100 WBC Diff 0.3 H (0.0-0.0) /100 WBCS PT 27.1 H (9.9-11.9) sec INR 2.65 H (0.90-1.11) Sodium (135-145) mmol/L Chloride (96-109) mmol/L BUN (9.0-27.0) mg/dL Est GFR (CKD-EPI)AfAm (60.0-200.0) Est GFR (CKD-EPI)NonAf (60.0-200.0) BUN/Creatinine Ratio (12.00-20.00) Ratio Glucose (70-110) mg/dL POC Glucose (mg/dL) 134 H (75-99) mg/dL Calcium (8.7-10.3) mg/dL 07/29/20 07/29/20 Range/Units 05:50 06:46 WBC (4.50-10.00) X 10*3/uL RBC (4.10-5.20) X 10*6/uL Hgb (12.0-15.0) g/dL Hct (37.2-46.3) % MCH (27.0-32.0) pg MCHC (32.0-37.0) g/dL RDW (11.5-14.5) % Absolute Nucleated RBC (0.00-0.00) X 10*3/uL Immature Gran # (0.00-0.04) X 10*3/uL Neutrophils # (1.80-7.70) X 10*3/uL Lymphocytes # (0.90-5.00) X 10*3/uL Monocytes # (0.20-1.00) X 10*3/uL Eosinophils # (0.04-0.35) X 10*3/uL NRBC/100 WBC Diff (0.0-0.0) /100 WBCS PT (9.9-11.9) sec INR (0.90-1.11) Sodium 149 H (135-145) mmol/L Chloride 112 H (96-109) mmol/L BUN 29.0 H (9.0-27.0) mg/dL Est GFR (CKD-EPI)AfAm 47.7 L (60.0-200.0) Est GFR (CKD-EPI)NonAf 41.2 L (60.0-200.0) BUN/Creatinine Ratio 24.17 H (12.00-20.00) Ratio Glucose 127 H (70-110) mg/dL POC Glucose (mg/dL) 152 H (75-99) mg/dL Calcium 8.3 L (8.7-10.3) mg/dL
--- NOTE | 2020-07-29 13:25 | P.PN ---
Subjective Progress Note Date: 07/29/20 CHIEF COMPLAINT: Abdominal pain HISTORY OF PRESENT ILLNESS: Patient is followed for small bowel obstruction secondary to small bowel stricture. She is postop day #2 status post exploratory laparotomy, lysis of adhesion and small bowel resection. Patient reports improvement in her abdominal pain. She denies any nausea. She was able to have a bowel movement. She did receive fluid boluses yesterday. Afebrile. WBC 14.6 hemoglobin 7.1 INR 2.65 on 3 L satting at 99% blood pressure better at 124/76 heart rate was 108. Potassium 3.8 Na 149 PHYSICAL EXAM: VITAL SIGNS: Reviewed. GENERAL: Well-developed in no acute distress. HEENT: No sclera icterus. Extraocular movements grossly intact. Moist buccal mucosa. Head is atraumatic, normocephalic. ABDOMEN: Soft. Nondistended. Nontender. NEUROLOGIC: Alert and oriented. Slightly confused. Cranial nerves II through XII grossly intact. ASSESSMENT: 1. 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 Hypokalemia resolved PLAN: -Discontinue NG tube -start clear liquid diet -Give another fluid bolus 1 L -Continue pain medication as needed -Encouraged patient to increase activity -Encouraged patient to use incentive spirometer -Hold off on restarting Coumadin Physician Manager Workers [employer] note has been reviewed by physician. Signing provider agrees with the documented findings, assessment, and plan of care. Objective - Vital Signs Vital signs: Vital Signs Temp 97.9 F 07/29/20 06:40 Pulse 108 H 07/29/20 07:50 Resp 16 07/29/20 07:50 BP 124/76 07/29/20 06:40 Pulse Ox 99 07/29/20 06:40 Intake & Output 07/28/20 07/29/20 07/29/20 18:59 06:59 18:59 Output Total 310 320 Balance -310 -320 Output: Gastric Drainage 110 70 Urine 200 250 Other: Voiding Method Indwelling Catheter Indwelling Catheter - Labs CBC & Chem 7: 07/29/20 05:50 07/29/20 05:50 Labs: Abnormal Lab Results - Last 24 Hours (Table) 07/28/20 07/28/20 07/29/20 Range/Units 16:32 20:38 02:28 WBC (4.50-10.00) X 10*3/uL RBC (4.10-5.20) X 10*6/uL Hgb (12.0-15.0) g/dL Hct (37.2-46.3) % MCH (27.0-32.0) pg MCHC (32.0-37.0) g/dL RDW (11.5-14.5) % Absolute Nucleated RBC (0.00-0.00) X 10*3/uL Immature Gran # (0.00-0.04) X 10*3/uL Neutrophils # (1.80-7.70) X 10*3/uL Lymphocytes # (0.90-5.00) X 10*3/uL Monocytes # (0.20-1.00) X 10*3/uL Eosinophils # (0.04-0.35) X 10*3/uL NRBC/100 WBC Diff (0.0-0.0) /100 WBCS PT (9.9-11.9) sec INR (0.90-1.11) Sodium (135-145) mmol/L Chloride (96-109) mmol/L BUN (9.0-27.0) mg/dL Est GFR (CKD-EPI)AfAm (60.0-200.0) Est GFR (CKD-EPI)NonAf (60.0-200.0) BUN/Creatinine Ratio (12.00-20.00) Ratio Glucose (70-110) mg/dL POC Glucose (mg/dL) 160 H 148 H 134 H (75-99) mg/dL Calcium (8.7-10.3) mg/dL 07/29/20 07/29/20 07/29/20 Range/Units 05:50 05:50 05:50 WBC 14.61 H (4.50-10.00) X 10*3/uL RBC 2.65 L (4.10-5.20) X 10*6/uL Hgb 7.1 L (12.0-15.0) g/dL Hct 24.5 L (37.2-46.3) % MCH 26.8 L (27.0-32.0) pg MCHC 29.0 L (32.0-37.0) g/dL RDW 18.5 H (11.5-14.5) % Absolute Nucleated RBC 0.05 H (0.00-0.00) X 10*3/uL Immature Gran # 0.06 H (0.00-0.04) X 10*3/uL Neutrophils # 12.97 H (1.80-7.70) X 10*3/uL Lymphocytes # 0.52 L (0.90-5.00) X 10*3/uL Monocytes # 1.01 H (0.20-1.00) X 10*3/uL Eosinophils # 0.03 L (0.04-0.35) X 10*3/uL NRBC/100 WBC Diff 0.3 H (0.0-0.0) /100 WBCS PT 27.1 H (9.9-11.9) sec INR 2.65 H (0.90-1.11) Sodium 149 H (135-145) mmol/L Chloride 112 H (96-109) mmol/L BUN 29.0 H (9.0-27.0) mg/dL Est GFR (CKD-EPI)AfAm 47.7 L (60.0-200.0) Est GFR (CKD-EPI)NonAf 41.2 L (60.0-200.0) BUN/Creatinine Ratio 24.17 H (12.00-20.00) Ratio Glucose 127 H (70-110) mg/dL POC Glucose (mg/dL) (75-99) mg/dL Calcium 8.3 L (8.7-10.3) mg/dL 07/29/20 07/29/20 Range/Units 06:46 11:26 WBC (4.50-10.00) X 10*3/uL RBC (4.10-5.20) X 10*6/uL Hgb (12.0-15.0) g/dL Hct (37.2-46.3) % MCH (27.0-32.0) pg MCHC (32.0-37.0) g/dL RDW (11.5-14.5) % Absolute Nucleated RBC (0.00-0.00) X 10*3/uL Immature Gran # (0.00-0.04) X 10*3/uL Neutrophils # (1.80-7.70) X 10*3/uL Lymphocytes # (0.90-5.00) X 10*3/uL Monocytes # (0.20-1.00) X 10*3/uL Eosinophils # (0.04-0.35) X 10*3/uL NRBC/100 WBC Diff (0.0-0.0) /100 WBCS PT (9.9-11.9) sec INR (0.90-1.11) Sodium (135-145) mmol/L Chloride (96-109) mmol/L BUN (9.0-27.0) mg/dL Est GFR (CKD-EPI)AfAm (60.0-200.0) Est GFR (CKD-EPI)NonAf (60.0-200.0) BUN/Creatinine Ratio (12.00-20.00) Ratio Glucose (70-110) mg/dL POC Glucose (mg/dL) 152 H 151 H (75-99) mg/dL Calcium (8.7-10.3) mg/dL
--- NOTE | 2020-07-29 16:20 | P.PN ---
Subjective Progress Note Date: 07/29/20 Patient is doing well today. She had a bowel movement earlier this morning. NG tube was discontinued. Objective - Vital Signs Vital signs: Vital Signs Temp 98.5 F 07/29/20 15:11 Pulse 67 07/29/20 15:11 Resp 16 07/29/20 15:11 BP 97/56 07/29/20 15:11 Pulse Ox 95 07/29/20 15:11 Intake & Output 07/28/20 07/29/20 07/29/20 18:59 06:59 18:59 Output Total 310 320 Balance -310 -320 Weight 61.235 kg Output: Gastric Drainage 110 70 Urine 200 250 Other: Voiding Method Indwelling Catheter Indwelling Catheter - Exam General: The patient is awake and alert, in no distress Eye: there is normal conjunctiva bilaterally. Neck: The neck is supple, there is no JVD. Cardiovascular: Normal S1-S2, no S3-S4, no murmurs. Respiratory: Lungs clear to auscultation bilaterally Gastrointestinal: Abdomen is soft, there is mild tenderness to palpation throughout the abdomen Musculoskeletal: There is no pedal edema. Neurological:. Speech is normal. Skin: Skin is warm and dry - Labs CBC & Chem 7: 07/29/20 05:50 07/29/20 05:50 Labs: Abnormal Lab Results - Last 24 Hours (Table) 07/28/20 07/28/20 07/29/20 Range/Units 16:32 20:38 02:28 WBC (4.50-10.00) X 10*3/uL RBC (4.10-5.20) X 10*6/uL Hgb (12.0-15.0) g/dL Hct (37.2-46.3) % MCH (27.0-32.0) pg MCHC (32.0-37.0) g/dL RDW (11.5-14.5) % Absolute Nucleated RBC (0.00-0.00) X 10*3/uL Immature Gran # (0.00-0.04) X 10*3/uL Neutrophils # (1.80-7.70) X 10*3/uL Lymphocytes # (0.90-5.00) X 10*3/uL Monocytes # (0.20-1.00) X 10*3/uL Eosinophils # (0.04-0.35) X 10*3/uL NRBC/100 WBC Diff (0.0-0.0) /100 WBCS PT (9.9-11.9) sec INR (0.90-1.11) Sodium (135-145) mmol/L Chloride (96-109) mmol/L BUN (9.0-27.0) mg/dL Est GFR (CKD-EPI)AfAm (60.0-200.0) Est GFR (CKD-EPI)NonAf (60.0-200.0) BUN/Creatinine Ratio (12.00-20.00) Ratio Glucose (70-110) mg/dL POC Glucose (mg/dL) 160 H 148 H 134 H (75-99) mg/dL Calcium (8.7-10.3) mg/dL 07/29/20 07/29/20 07/29/20 Range/Units 05:50 05:50 05:50 WBC 14.61 H (4.50-10.00) X 10*3/uL RBC 2.65 L (4.10-5.20) X 10*6/uL Hgb 7.1 L (12.0-15.0) g/dL Hct 24.5 L (37.2-46.3) % MCH 26.8 L (27.0-32.0) pg MCHC 29.0 L (32.0-37.0) g/dL RDW 18.5 H (11.5-14.5) % Absolute Nucleated RBC 0.05 H (0.00-0.00) X 10*3/uL Immature Gran # 0.06 H (0.00-0.04) X 10*3/uL Neutrophils # 12.97 H (1.80-7.70) X 10*3/uL Lymphocytes # 0.52 L (0.90-5.00) X 10*3/uL Monocytes # 1.01 H (0.20-1.00) X 10*3/uL Eosinophils # 0.03 L (0.04-0.35) X 10*3/uL NRBC/100 WBC Diff 0.3 H (0.0-0.0) /100 WBCS PT 27.1 H (9.9-11.9) sec INR 2.65 H (0.90-1.11) Sodium 149 H (135-145) mmol/L Chloride 112 H (96-109) mmol/L BUN 29.0 H (9.0-27.0) mg/dL Est GFR (CKD-EPI)AfAm 47.7 L (60.0-200.0) Est GFR (CKD-EPI)NonAf 41.2 L (60.0-200.0) BUN/Creatinine Ratio 24.17 H (12.00-20.00) Ratio Glucose 127 H (70-110) mg/dL POC Glucose (mg/dL) (75-99) mg/dL Calcium 8.3 L (8.7-10.3) mg/dL 07/29/20 07/29/20 Range/Units 06:46 11:26 WBC (4.50-10.00) X 10*3/uL RBC (4.10-5.20) X 10*6/uL Hgb (12.0-15.0) g/dL Hct (37.2-46.3) % MCH (27.0-32.0) pg MCHC (32.0-37.0) g/dL RDW (11.5-14.5) % Absolute Nucleated RBC (0.00-0.00) X 10*3/uL Immature Gran # (0.00-0.04) X 10*3/uL Neutrophils # (1.80-7.70) X 10*3/uL Lymphocytes # (0.90-5.00) X 10*3/uL Monocytes # (0.20-1.00) X 10*3/uL Eosinophils # (0.04-0.35) X 10*3/uL NRBC/100 WBC Diff (0.0-0.0) /100 WBCS PT (9.9-11.9) sec INR (0.90-1.11) Sodium (135-145) mmol/L Chloride (96-109) mmol/L BUN (9.0-27.0) mg/dL Est GFR (CKD-EPI)AfAm (60.0-200.0) Est GFR (CKD-EPI)NonAf (60.0-200.0) BUN/Creatinine Ratio (12.00-20.00) Ratio Glucose (70-110) mg/dL POC Glucose (mg/dL) 152 H 151 H (75-99) mg/dL Calcium (8.7-10.3) mg/dL Assessment and Plan Assessment: This is a 84-year-old female with past medical history noted below who presented to the emergency room with abdominal pain and distention. Patient was evaluated in the ER and admitted to the hospital for further management of her medical problems noted below. Partial small bowel obstruction with concerns about underlying enteritis: - Postoperative day #2 status post exploratory laparoscopy with lysis of adhesion and small bowel resection -Patient received IV antibiotic with ceftriaxone and Flagyl since admission which was discontinued postoperatively -CT on presentation revealing partial SBO in left mid abdomen due to adhesions from adjacent surgical change and mild ill-defined fluid and fat stranding related to lower abdomen is present making underlying infectious process or enteritis not entirely excluded. -Postoperative care per general surgery: NG tube discontinued today. Started on liquid diet. Patient had a bowel movement this morning. History of bioprosthetic mitral valve replacement on Coumadin, on hold since admission. INR subtherapeutic. -Patient was seen and evaluated by cardiology, appreciate recommendations. Severe Pulmonary Hypertension with Chronic diastolic heart failure not in acute exacerbation -Echocardiogram completed 03/25/20 revealed a preserved EF of 50-55% with moderate aortic stenosis and moderate to severe pulmonary hypertension. -I have been giving her IV Lasix push once a day since admission -Oral dose of torsemide on home Hypertension Hyperlipidemia Hypothyroidism GERD CODE STATUS: Full code DVT prophylaxis: patient on Coumadin Discussed with: patient and RN Anticipated discharge date: Pending clinical course Anticipated discharge place: home A total of 35 minutes was spent on the care of this complex patient more than 50% of the time was spent in counseling and care coordination.
[2020-07-29 16:51] LABS: Glucose,Whole Blood 144 mg/dL (75-99)
[2020-07-29] MEDS: DEXTROSE 5%-0.45% NACL 1,000 ML IV SCH (18:48)
[2020-07-29 20:28] LABS: Glucose,Whole Blood 213 mg/dL (75-99)
[2020-07-29] MEDS: LEVOTHYROXINE 25 MCG TAB PO SCH (20:44)
[2020-07-29] MEDS: ATORVASTATIN 10 MG TAB PO SCH (20:44)
[2020-07-30 02:02] LABS: Glucose,Whole Blood 151 mg/dL (75-99)
[2020-07-30] MEDS: DEXTROSE 5%-0.45% NACL 1,000 ML IV SCH ×2 (04:54→19:09)
[2020-07-30 06:41] LABS: Glucose,Whole Blood 168 mg/dL (75-99)
[2020-07-30] MEDS: HYDROmorphone 1 MG/ML 1 ML SYRINGE IVP PRN ×3 (08:13→20:13)
[2020-07-30] MEDS: FAMOTIDINE 20 MG/2 ML VIAL IV SCH (08:14)
[2020-07-30] MEDS: GABAPENTIN 100 MG CAP PO SCH ×3 (08:14→20:12)
[2020-07-30] MEDS: METOPROLOL SUCCINATE (ER) 50 MG TAB.ER.24H PO SCH ×3 (08:14→20:12)
[2020-07-30 10:04] LABS: African American GFR (CKD) 59.5 (60.0-200.0); Anion Gap 5.8 mmol/L (4.00-12.00); Calcium 8.2 mg/dL (8.7-10.3); Carbon Dioxide 27.2 mmol/L (21.6-31.8); Non-African American GFR(CKD) 51.3 (60.0-200.0); Potassium 3.6 mmol/L (3.5-5.5)
[2020-07-30] MEDS: IPRATROPIUM-ALBUTEROL 3 ML NEB INHALATION PRN (10:05)
[2020-07-30] MEDS: SYMBICORT 160-4.5 MCG INHALER INHALATION PRN (10:05)
--- NOTE | 2020-07-30 10:11 | XR ---
EXAMINATION TYPE: XR chest 1V DATE OF EXAM: 07/30/2020 COMPARISON: Chest x-ray 07/28/2020 HISTORY: Shortness of breath TECHNIQUE: Single frontal view of the chest is obtained. FINDINGS: There is blunting the costophrenic angles, hemidiaphragms are obscured. Patient is post me jose sternotomy and cardiac valve replacement. Generators present in the left pectoral region, there are leads in right atrium, ventricle, coronary sinus as on prior exam. Cardiac mediastinal silhouette is similar characteristics differences in technique. No evident pneumothorax. Heart is likely enlarg ed. There is some improvement in aeration in left upper lobe. IMPRESSION: Pleural effusions and associated atelectasis, correlate for edema versus pneumonia. Impr ovement in aeration.
[2020-07-30 10:30] LABS: Basophils # (A) 0.02 X 10*3/uL (0.00-0.10); Basophils % (A) 0.2 %; Eosinophils # (A) 0.11 X 10*3/uL (0.04-0.35); Lymphocytes # (A) 0.52 X 10*3/uL (0.90-5.00); Lymphocytes % (A) 4.7 %; Monocytes # (A) 0.85 X 10*3/uL (0.20-1.00); Monocytes % (A) 7.7 %; Neutrophils # (A) 9.51 X 10*3/uL (1.80-7.70); Neutrophils % (A) 85.8 %
[2020-07-30 10:31] LABS: HCT 22.7 % (37.2-46.3); Hypochromasia (M) 2+; MCH 25.9 pg (27.0-32.0); MCHC 28.2 g/dL (32.0-37.0); MCV 91.9 fL (80.0-97.0); Mean Platelet Volume 10.4 fL (9.5-12.2); Platelet Count 196 X 10*3/uL (140-440); RBC 2.47 X 10*6/uL (4.10-5.20); RDW 18.7 % (11.5-14.5); WBC 11.08 X 10*3/uL (4.50-10.00)
[2020-07-30 11:17] LABS: HGB 6.4 g/dL (12.0-15.0)
[2020-07-30] MEDS ORDERED: FUROSEMIDE 10 MG/ML 4 ML VIAL IV STA (11:40)
--- NOTE | 2020-07-30 11:50 | P.PN ---
Subjective Progress Note Date: 07/30/20 HISTORY OF PRESENT ILLNESS: 07/28/2020 Patient is status post exploratory laparotomy, lysis of adhesions, and small bowel resection secondary to small bowel obstruction due to small bowel stricture with Dr. Oliver. Postop day #1. Patient examined this morning at the bedside. She denies chest pain or pressure. Denies shortness of breath. She has a congested cough upon examination. NG tube with bilious drainage. Wallace catheter noted with dark urine output. Patient's INR 2.71 today. Coumadin remains on hold. Hemoglobin 7.8 today, down from 11.7 yesterday. Echocardiogram completed revealed ejection fraction 40-45%, moderate aortic regurgitation, moderate aortic stenosis, moderate to severe tricuspid regurgitation, and severe pulmonary hypertension 07/29/2020 Patient examined this morning at the bedside. NG tube has been discontinued. Patient received a 2 L fluid bolus per Gen. surgery yesterday. Telemetry reveals paced rhythm in the 70s. Blood pressure 124/76. She is afebrile. Urine output over the last 24 hours is 630 mL. Hemoglobin 7.1 today, down from 7.8 yesterday and 11.7 preoperatively. INR 2.65. Coumadin remains on hold. 07/30/2020 Patient examined at the bedside. She reports abdominal pain this morning. She reports passing small amounts of flatus. Wallace was discontinued and patient is due to void. Patients hemoglobin 6.4 today. PHYSICAL EXAM: VITAL SIGNS: Reviewed. GENERAL: Well-developed in no acute distress. NECK: Supple. No JVD or thyromegaly LUNGS: Respirations even and unlabored. Lungs diminished with rales to bilateral bases. Congested cough noted. HEART: Telemetry reveals paced rhythm. S1 and S2 heard. Systolic murmur noted. EXTREMITIES: Normal range of motion. No clubbing or cyanosis. Peripheral puls es intact. 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 Oliver Monitor hemoglobin. Patient to receive 1 unit RBC per internal medicine. Repeat hemoglobin in AM Continue to hold Coumadin tonight secondary to anemia. Repeat INR in AM Chest xray obtained and reviewed. Give Lasix 40mg IVP x 1 dose Continue pulmonary toileting Continue telemetry monitoring Further recommendations pending patient course Nurse practitioner note has been reviewed by physician. Signing provider agrees with the documented findings, assessment, and plan of care. Objective - Vital Signs Vital signs: Vital Signs Temp 97.7 F 07/30/20 07:21 Pulse 73 07/30/20 07:21 Resp 17 07/30/20 07:21 BP 117/80 07/30/20 07:21 Pulse Ox 97 07/30/20 07:21 Intake & Output 07/29/20 07/30/20 07/30/20 18:59 06:59 18:59 Intake Total 125 Output Total 600 Balance -475 Weight 61.235 kg Intake: Oral 125 Output: Urine 600 Straight 600 Other: Voiding Method Indwelling Catheter Toilet Toilet Diaper Diaper - Labs CBC & Chem 7: 07/30/20 05:42 07/30/20 05:42 Labs: Abnormal Lab Results - Last 24 Hours (Table) 07/29/20 07/29/20 07/30/20 Range/Units 16:49 20:27 02:01 WBC (4.50-10.00) X 10*3/uL RBC (4.10-5.20) X 10*6/uL Hgb (12.0-15.0) g/dL Hct (37.2-46.3) % MCH (27.0-32.0) pg MCHC (32.0-37.0) g/dL RDW (11.5-14.5) % Absolute Nucleated RBC (0.00-0.00) X 10*3/uL Immature Gran # (0.00-0.04) X 10*3/uL Neutrophils # (1.80-7.70) X 10*3/uL Lymphocytes # (0.90-5.00) X 10*3/uL NRBC/100 WBC Diff (0.0-0.0) /100 WBCS Sodium (135-145) mmol/L Chloride (96-109) mmol/L BUN (9.0-27.0) mg/dL Est GFR (CKD-EPI)AfAm (60.0-200.0) Est GFR (CKD-EPI)NonAf (60.0-200.0) BUN/Creatinine Ratio (12.00-20.00) Ratio Glucose (70-110) mg/dL POC Glucose (mg/dL) 144 H 213 H 151 H (75-99) mg/dL Calcium (8.7-10.3) mg/dL 07/30/20 07/30/20 07/30/20 Range/Units 05:42 05:42 06:40 WBC 11.08 H (4.50-10.00) X 10*3/uL RBC 2.47 L (4.10-5.20) X 10*6/uL Hgb 6.4 L* (12.0-15.0) g/dL Hct 22.7 L (37.2-46.3) % MCH 25.9 L (27.0-32.0) pg MCHC 28.2 L (32.0-37.0) g/dL RDW 18.7 H (11.5-14.5) % Absolute Nucleated RBC 0.05 H (0.00-0.00) X 10*3/uL Immature Gran # 0.07 H (0.00-0.04) X 10*3/uL Neutrophils # 9.51 H (1.80-7.70) X 10*3/uL Lymphocytes # 0.52 L (0.90-5.00) X 10*3/uL NRBC/100 WBC Diff 0.5 H (0.0-0.0) /100 WBCS Sodium 146 H (135-145) mmol/L Chloride 113 H (96-109) mmol/L BUN 31.0 H (9.0-27.0) mg/dL Est GFR (CKD-EPI)AfAm 59.5 L (60.0-200.0) Est GFR (CKD-EPI)NonAf 51.3 L (60.0-200.0) BUN/Creatinine Ratio 31.00 H (12.00-20.00) Ratio Glucose 152 H (70-110) mg/dL POC Glucose (mg/dL) 168 H (75-99) mg/dL Calcium 8.2 L (8.7-10.3) mg/dL
[2020-07-30 12:10] LABS: Glucose,Whole Blood 246 mg/dL (75-99)
--- NOTE | 2020-07-30 14:44 | CDI ---
Documentation Clarification Form Date: 07/30/2020 02:42:09 PM From: Flor Youssef RN, CCDS Admit Date: 07/25/2020 02:15:00 PM Patient Name: Julisa Peres Visit Number: [id number] ATTENTION: The Clinical Documentation Specialists (CDI) and [facility] Coding Staff appreciate your assistance in clarifying documentation. Please respond to the clarification below the line at the bottom and electronically sign. The CDI & [facility] Coding staff will review the response and follow-up if needed. Please note: Queries are made part of the Legal Health Record. If you have any questions, please contact the author of this message via ITS. Dr. Barbour A decrease in the patient's Hgb and Hct have been noted since operative procedure. Please render your opinion on the clinical significance of the patients hemoglobin/hematocrit levels. History/Risk Factors: CAD with AICD, MVR on Coumadin, Chronic diastolic CHF, severe pulmonary HTN, HTN, HLD, Gerd, Small bowel resection Clinical indicators: 07/25-07/30 Hgb: 11.7/10.7/11.7/7.8/7.1 07/25-ct: 36.3/34.7/38.4/26.5/24.5 07/27 Procedure: Small bowel obstruction secondary to small bowel stricture: Exploratory laparotomy, Lysis of adhesion, Small bowel resection EBL: 20 cc Treatment: 07/30 1 U PRBC's transfused 07/25 500 CC 0.9% NS IVF bolus 07/27 500 CC 0.9% NS IVF bolus 07/28 500 CC 0.9% NS IVF bolus Labs Am Daily In order to capture the severity of condition, please clarify if the labs/clinical indicators signify: Acute blood loss anemia (please indicate if d/t procedure and if expected or unexpected) Acute on chronic blood loss anemia Iron deficiency anemia Drug induced anemia Nutritional anemia Anemia of chronic disease Unable to determine Other, please specify Acute blood loss anemia MTDD
--- NOTE | 2020-07-30 16:19 | P.PN ---
Progress Note - Text Progress Note Date: 07/30/20 Patient's complaints of incisional pain. She is anemic with hemostats 6.4. Her INR is 2.65. On exam vital signs appear stable. Abdomen soft. Incisions clean and intact. Patient's had minimal bowel function. She'll remain on clear liquids. She will be receiving a unit of packed red cells today.
--- NOTE | 2020-07-30 16:49 | P.PN ---
<Solomon Thomas - Last Filed: 07/30/20 16:01> Subjective Progress Note Date: 07/30/20 Hospital Course: Patient is an 84-year-old female with a past medical history including CAD with pacemaker/defibrillator placement, mitral valve replacement on Coumadin, chronic diastolic heart failure, severe pulmonary hypertension, hypertension, hyperlipidemia, hypothyroidism, neuropathy, GERD, and history of a bowel obstruction with herniation resulting in a small bowel resection. The patient presented to [facility] with a chief complaint of abdominal pain and distention and was admitted for partial bowel obstruction with concerns of underlying infectious process such as enteritis. CT scan abdomen and pelvis was completed revealing partial SBO in left mid abdomen due to adhesions from adjacent surgical change and mild ill-defined fluid and fat stranding related to lower abdomen is present making underlying infectious process or enteritis not entirely excluded. Coumadin was discontinued and patient was placed on heparin infusion to maintain anticoagulation until surgical procedure. Patient was placed on IV antibiotics: Flagyl and Rocephin, NG tube was placed to LIS for decompression and pt underwent an exploratory laparotomy with lysis of adhesions and small bowel resection on 07/27/[address] Oliver.. Physical exam: Patient states she has not since been able to pass any flatus. She denies having any nausea or vomiting, but does report a decreased appetite. Patient denies having any other complaints including fever, chills, diaphoresis, chest pain, palpitations, shortness of breath, dyspnea with exertion, or any difficulties with or changes in urinary function. Surgical dressing to midline abdomen intact with no noted signs of bleeding. This morning hemoglobin was 6.4 from previous 7.1, order placed for transfusion of 1 unit PRBCs at this time and we will continue to monitor CBC levels closely. Patient was seen and fully evaluated at the bedside. Vital signs reviewed and stable. NG tube was removed yesterday. Pt is now postop day 3 and reports continued mild abdominal discomfort, but states she is passing flatus. She is tolerating a clear liquid diet and denies having any episodes of nausea or vomiting. Wallace catheter also removed yesterday and patient reports urinating without any difficulties. General: non toxic, no distress, appears at stated age Derm: warm, dry Head: atraumatic, normocephalic, symmetric Eyes: EOMI, no lid lag, anicteric sclera Mouth: no lip lesion, mucus membranes moist Cardiovascular: Murmur present. Pacemaker/defibrillator left anterior chest. Positive posterior tibial pulses bilaterally. Cap refill less than 2 seconds. Lungs: Respirations even, regular, and unlabored on room air. Lungs CTA bilateral, no rhonchi, no rales, no wheezing, and no accessory muscle use Abdominal: Taut distended . Diffuse tenderness. No guarding, no appreciable organomegaly. Surgical dressing to midline abdomen intact with no noted signs of bleeding. Ext: No gross muscle atrophy, no edema, no contractures. Neuro: Speech clear, movement and sensation of upper and lower extremities intact, no focal neuro deficits Psych: Alert, oriented, appropriate affect Assessment and Plan of Care: Partial small bowel obstruction with concerns for underlying infectious process such as enteritis -CT revealing partial SBO in left mid abdomen due to adhesions from adjacent surgical change and mild ill-defined fluid and fat stranding related to lower abdomen is present making underlying infectious process or enteritis not entirely excluded. -Patient was placed on IV antibiotics: Flagyl and Rocephin, NG tube was placed to LIS for decompression and pt underwent an exploratory laparotomy with lysis of adhesions and small bowel resection on 07/27/[address] Oliver.. -Patient is day 3 postop, NG tube was removed yesterday and patient is tolerating a clear liquid diet without any episodes of nausea or vomiting. -Continue clear liquid diet and advance as recommended by general surgery -Symptomatic care and pain management with Zofran as needed for nausea/vomiting and morphine as needed for pain. -Hemoglobin 6.4, order placed to transfuse 1 unit PRBCs and stat INR. Notified pharmacy to hold Coumadin tonight secondary to decreasing hemoglobin and need for transfusion. Acute blood loss anemia -Preoperative hemoglobin 11.7 and has trended down daily. Morning labs revealed hemoglobin to be 6.4. Order placed to transfuse 1 unit packed RBCs and a stat INR. -Notified pharmacy to hold Coumadin tonight secondary to decreasing hemoglobin and need for transfusion. -We will continue to monitor H&H closely. History of mitral valve replacement on Coumadin -INR therapeutic at 2.65. -Hemoglobin 6.4, order placed to transfuse 1 unit PRBCs and stat INR. Notified pharmacy to hold Coumadin tonight secondary to decreasing hemoglobin and need for transfusion Severe Pulmonary Hypertension with Chronic diastolic heart failure not in acute exacerbation -Echocardiogram completed 03/25/20 revealed a preserved EF of 50-55% with modera te aortic stenosis and moderate to severe pulmonary hypertension. -Echocardiogram completed 07/26/20 revealed a moderately impaired ejection fraction between 40 and 45% with moderate aortic stenosis and severe pulmonary hypertension. -Furosemide 40 mg IVP was given 1 dose per cardiology, we will resume torsemide once pt is back on her normal heart healthy diet. Hypertension -Monitor vital signs and continue metoprolol. Hyperlipidemia -Continue daily medication regimen with atorvastatin. Hypothyroidism -Continue daily medication regimen with levothyroxine 25 g GERD -Continue daily medication regimen with Protonix. CODE STATUS: Full code DVT prophylaxis: Coumadin. Discussed with: Patient and RN Anticipated discharge date: Pending clinical course Anticipated discharge place: home A total of 45 minutes was spent on the care of this complex patient more than 50% of the time was spent in counseling and care coordination. Objective - Vital Signs Vital signs: Vital Signs Temp 97.7 F 07/30/20 07:21 Pulse 73 07/30/20 07:21 Resp 17 07/30/20 07:21 BP 117/80 07/30/20 07:21 Pulse Ox 97 07/30/20 07:21 Intake & Output 07/29/20 07/30/20 07/30/20 18:59 06:59 18:59 Intake Total 125 Output Total 600 Balance -475 Weight 61.235 kg Intake: Oral 125 Output: Urine 600 Straight 600 Other: Voiding Method Indwelling Catheter Toilet Toilet Diaper Diaper - Labs CBC & Chem 7: 07/30/20 05:42 07/30/20 05:42 Labs: Abnormal Lab Results - Last 24 Hours (Table) 07/29/20 07/29/20 07/29/20 Range/Units 11:26 16:49 20:27 WBC (4.50-10.00) X 10*3/uL RBC (4.10-5.20) X 10*6/uL Hgb (12.0-15.0) g/dL Hct (37.2-46.3) % MCH (27.0-32.0) pg MCHC (32.0-37.0) g/dL RDW (11.5-14.5) % Absolute Nucleated RBC (0.00-0.00) X 10*3/uL Immature Gran # (0.00-0.04) X 10*3/uL Neutrophils # (1.80-7.70) X 10*3/uL Lymphocytes # (0.90-5.00) X 10*3/uL NRBC/100 WBC Diff (0.0-0.0) /100 WBCS Sodium (135-145) mmol/L Chloride (96-109) mmol/L BUN (9.0-27.0) mg/dL Est GFR (CKD-EPI)AfAm (60.0-200.0) Est GFR (CKD-EPI)NonAf (60.0-200.0) BUN/Creatinine Ratio (12.00-20.00) Ratio Glucose (70-110) mg/dL POC Glucose (mg/dL) 151 H 144 H 213 H (75-99) mg/dL Calcium (8.7-10.3) mg/dL 07/30/20 07/30/20 07/30/20 Range/Units 02:01 05:42 05:42 WBC 11.08 H (4.50-10.00) X 10*3/uL RBC 2.47 L (4.10-5.20) X 10*6/uL Hgb 6.4 L* (12.0-15.0) g/dL Hct 22.7 L (37.2-46.3) % MCH 25.9 L (27.0-32.0) pg MCHC 28.2 L (32.0-37.0) g/dL RDW 18.7 H (11.5-14.5) % Absolute Nucleated RBC 0.05 H (0.00-0.00) X 10*3/uL Immature Gran # 0.07 H (0.00-0.04) X 10*3/uL Neutrophils # 9.51 H (1.80-7.70) X 10*3/uL Lymphocytes # 0.52 L (0.90-5.00) X 10*3/uL NRBC/100 WBC Diff 0.5 H (0.0-0.0) /100 WBCS Sodium 146 H (135-145) mmol/L Chloride 113 H (96-109) mmol/L BUN 31.0 H (9.0-27.0) mg/dL Est GFR (CKD-EPI)AfAm 59.5 L (60.0-200.0) Est GFR (CKD-EPI)NonAf 51.3 L (60.0-200.0) BUN/Creatinine Ratio 31.00 H (12.00-20.00) Ratio Glucose 152 H (70-110) mg/dL POC Glucose (mg/dL) 151 H (75-99) mg/dL Calcium 8.2 L (8.7-10.3) mg/dL 07/30/20 Range/Units 06:40 WBC (4.50-10.00) X 10*3/uL RBC (4.10-5.20) X 10*6/uL Hgb (12.0-15.0) g/dL Hct (37.2-46.3) % MCH (27.0-32.0) pg MCHC (32.0-37.0) g/dL RDW (11.5-14.5) % Absolute Nucleated RBC (0.00-0.00) X 10*3/uL Immature Gran # (0.00-0.04) X 10*3/uL Neutrophils # (1.80-7.70) X 10*3/uL Lymphocytes # (0.90-5.00) X 10*3/uL NRBC/100 WBC Diff (0.0-0.0) /100 WBCS Sodium (135-145) mmol/L Chloride (96-109) mmol/L BUN (9.0-27.0) mg/dL Est GFR (CKD-EPI)AfAm (60.0-200.0) Est GFR (CKD-EPI)NonAf (60.0-200.0) BUN/Creatinine Ratio (12.00-20.00) Ratio Glucose (70-110) mg/dL POC Glucose (mg/dL) 168 H (75-99) mg/dL Calcium (8.7-10.3) mg/dL <Salima Barbour - Last Filed: 07/30/20 18:07> Subjective Patient seen and examined independently. Patient was also seen by Solomon Thomas NP and case was discussed. I am in agreement with subjective, physical exam, assessment and plan as written above and amended below. Patient seen and examined at bedside. She is extremely hard of hearing. She states she is having some suprapubic pain. No nausea or vomiting. Per nursing the patient had been up and walking and then sat back in the chair and had decreased level of responsiveness. She immediately came back to, vital signs were stable once checked and in chair. General: non toxic, no distress, appears at stated age Derm: warm, dry Head: atraumatic, normocephalic, symmetric Eyes: EOMI, no lid lag, anicteric sclera Mouth: no lip lesion, mucous membranes dry, hard of hearing Cardiovascular: S1S2 reg, no murmur, positive posterior tibial pulse bilateral, Lungs: CTA bilateral, no rhonchi, no rales , no accessory muscle use Abdominal: Soft, mildly distended, midline incision with dressing in place with slight sanguinous soaked through, tender to palpation diffusely Ext: no gross muscle atrophy, trace edema, no contractures Neuro: CN II-XI grossly intact, no focal neuro deficits Psych: Alert, oriented, appropriate affect Chronic persistent atrial fibrillation -Anticoagulated with Coumadin -Telemetry -Rate control with metoprolol Cardiomyopathy with ejection fraction 40-45%, undetermined cause -Continue with beta dee, diuretics given 1 -Consider Henrry/ARB Objective - Vital Signs Vital signs: Vital Signs Temp 98.0 F 07/30/20 17:34 Pulse 105 H 07/30/20 17:34 Resp 17 07/30/20 17:34 BP 136/82 07/30/20 17:34 Pulse Ox 98 07/30/20 17:34 Intake & Output 07/29/20 07/30/20 07/30/20 18:59 06:59 18:59 Intake Total 125 310 Output Total 600 800 Balance -475 -490 Weight 61.235 kg Intake: Oral 125 Blood Product 310 Rc As-1 Unit 310 [id number] Output: Urine 600 800 Straight 600 Other: Voiding Method Indwelling Catheter Toilet Toilet Diaper Diaper # Voids 2 # Bowel Movements 1 - Labs CBC & Chem 7: 07/30/20 05:42 07/30/20 05:42 Labs: Abnormal Lab Results - Last 24 Hours (Table) 07/29/20 07/30/20 07/30/20 Range/Units 20:27 02:01 05:42 WBC 11.08 H (4.50-10.00) X 10*3/uL RBC 2.47 L (4.10-5.20) X 10*6/uL Hgb 6.4 L* (12.0-15.0) g/dL Hct 22.7 L (37.2-46.3) % MCH 25.9 L (27.0-32.0) pg MCHC 28.2 L (32.0-37.0) g/dL RDW 18.7 H (11.5-14.5) % Absolute Nucleated RBC 0.05 H (0.00-0.00) X 10*3/uL Immature Gran # 0.07 H (0.00-0.04) X 10*3/uL Neutrophils # 9.51 H (1.80-7.70) X 10*3/uL Lymphocytes # 0.52 L (0.90-5.00) X 10*3/uL NRBC/100 WBC Diff 0.5 H (0.0-0.0) /100 WBCS Sodium (135-145) mmol/L Chloride (96-109) mmol/L BUN (9.0-27.0) mg/dL Est GFR (CKD-EPI)AfAm (60.0-200.0) Est GFR (CKD-EPI)NonAf (60.0-200.0) BUN/Creatinine Ratio (12.00-20.00) Ratio Glucose (70-110) mg/dL POC Glucose (mg/dL) 213 H 151 H (75-99) mg/dL Calcium (8.7-10.3) mg/dL Crossmatch 07/30/20 07/30/20 07/30/20 Range/Units 05:42 06:40 11:23 WBC (4.50-10.00) X 10*3/uL RBC (4.10-5.20) X 10*6/uL Hgb (12.0-15.0) g/dL Hct (37.2-46.3) % MCH (27.0-32.0) pg MCHC (32.0-37.0) g/dL RDW (11.5-14.5) % Absolute Nucleated RBC (0.00-0.00) X 10*3/uL Immature Gran # (0.00-0.04) X 10*3/uL Neutrophils # (1.80-7.70) X 10*3/uL Lymphocytes # (0.90-5.00) X 10*3/uL NRBC/100 WBC Diff (0.0-0.0) /100 WBCS Sodium 146 H (135-145) mmol/L Chloride 113 H (96-109) mmol/L BUN 31.0 H (9.0-27.0) mg/dL Est GFR (CKD-EPI)AfAm 59.5 L (60.0-200.0) Est GFR (CKD-EPI)NonAf 51.3 L (60.0-200.0) BUN/Creatinine Ratio 31.00 H (12.00-20.00) Ratio Glucose 152 H (70-110) mg/dL POC Glucose (mg/dL) 168 H (75-99) mg/dL Calcium 8.2 L (8.7-10.3) mg/dL Crossmatch See Detail 07/30/20 07/30/20 Range/Units 12:09 16:52 WBC (4.50-10.00) X 10*3/uL RBC (4.10-5.20) X 10*6/uL Hgb (12.0-15.0) g/dL Hct (37.2-46.3) % MCH (27.0-32.0) pg MCHC (32.0-37.0) g/dL RDW (11.5-14.5) % Absolute Nucleated RBC (0.00-0.00) X 10*3/uL Immature Gran # (0.00-0.04) X 10*3/uL Neutrophils # (1.80-7.70) X 10*3/uL Lymphocytes # (0.90-5.00) X 10*3/uL NRBC/100 WBC Diff (0.0-0.0) /100 WBCS Sodium (135-145) mmol/L Chloride (96-109) mmol/L BUN (9.0-27.0) mg/dL Est GFR (CKD-EPI)AfAm (60.0-200.0) Est GFR (CKD-EPI)NonAf (60.0-200.0) BUN/Creatinine Ratio (12.00-20.00) Ratio Glucose (70-110) mg/dL POC Glucose (mg/dL) 246 H 164 H (75-99) mg/dL Calcium (8.7-10.3) mg/dL Crossmatch
[2020-07-30 16:53] LABS: Glucose,Whole Blood 164 mg/dL (75-99)
[2020-07-30] MEDS ORDERED: WARFARIN 0.5 MG TAB PO ONE (18:00)
[2020-07-30] MEDS ORDERED: WARFARIN 2.5 MG TAB PO ONE (18:00)
[2020-07-30 19:28] LABS: Anisocytosis Slight; Basophils % (A) 0 %; Eosinophils # (A) 0.2 k/uL (0-0.7); Eosinophils % (A) 1 %; HCT 30.3 % (34.0-46.0); Hypochromasia Marked; Lymphocytes # (A) 0.7 k/uL (1.0-4.8); Lymphocytes % (A) 7 %; MCH 27.1 pg (25.0-35.0); MCHC 30.7 g/dL (31.0-37.0); MCV 88.4 fL (80.0-100.0); Mean Platelet Volume 7.9; Monocytes # (A) 0.8 k/uL (0-1.0); Monocytes % (A) 7 %; Neutrophils # (A) 9.3 k/uL (1.3-7.7); Neutrophils % (A) 84 %; Platelet Count 209 k/uL (150-450); Poikilocytosis Slight; RBC 3.42 m/uL (3.80-5.40); WBC 11.1 k/uL (3.8-10.6)
[2020-07-30 19:59] LABS: HGB 9.3 gm/dL (11.4-16.0)
[2020-07-30] MEDS: LEVOTHYROXINE 25 MCG TAB PO SCH (20:12)
[2020-07-30] MEDS: ATORVASTATIN 10 MG TAB PO SCH (20:13)
[2020-07-30 20:43] LABS: Glucose,Whole Blood 175 mg/dL (75-99)
[2020-07-31 01:51] LABS: Glucose,Whole Blood 166 mg/dL (75-99)
[2020-07-31 06:31] LABS: INR 2.2 (<1.2); Prothrombin Time 21.2 sec (9.0-12.0)
[2020-07-31 06:46] LABS: Glucose,Whole Blood 149 mg/dL (75-99)
[2020-07-31] MEDS: IPRATROPIUM-ALBUTEROL 3 ML NEB INHALATION PRN ×4 (07:52→19:05)
[2020-07-31] MEDS: SYMBICORT 160-4.5 MCG INHALER INHALATION PRN ×2 (08:05→19:05)
[2020-07-31] MEDS: METOPROLOL SUCCINATE (ER) 50 MG TAB.ER.24H PO SCH ×3 (08:30→21:09)
[2020-07-31] MEDS: GABAPENTIN 100 MG CAP PO SCH ×3 (08:31→21:09)
[2020-07-31] MEDS: FAMOTIDINE 20 MG/2 ML VIAL IV SCH (08:32)
[2020-07-31 08:34] LABS: Basophils # (A) 0.02 X 10*3/uL (0.00-0.10); Basophils % (A) 0.2 %; Eosinophils # (A) 0.24 X 10*3/uL (0.04-0.35); Eosinophils % (A) 2.7 %; HCT 28.8 % (37.2-46.3); HGB 8.6 g/dL (12.0-15.0); Lymphocytes # (A) 0.55 X 10*3/uL (0.90-5.00); Lymphocytes % (A) 6.1 %; MCH 26.8 pg (27.0-32.0); MCHC 29.9 g/dL (32.0-37.0); MCV 89.7 fL (80.0-97.0); Mean Platelet Volume 10.4 fL (9.5-12.2); Monocytes # (A) 0.83 X 10*3/uL (0.20-1.00); Monocytes % (A) 9.2 %; Neutrophils # (A) 7.33 X 10*3/uL (1.80-7.70); Neutrophils % (A) 81.2 %; Platelet Count 204 X 10*3/uL (140-440); RBC 3.21 X 10*6/uL (4.10-5.20); RDW 18.3 % (11.5-14.5); WBC 9.02 X 10*3/uL (4.50-10.00)
[2020-07-31] MEDS: HYDROmorphone 1 MG/ML 1 ML SYRINGE IVP PRN ×2 (08:41→21:09)
[2020-07-31] MEDS ORDERED: FUROSEMIDE 10 MG/ML 4 ML VIAL IV SCH (09:00)
--- NOTE | 2020-07-31 09:40 | XR ---
EXAMINATION TYPE: XR chest 1V DATE OF EXAM: 07/31/2020 CLINICAL HISTORY: Difficulty breathing and cough progress study. TECHNIQUE: Single AP portable upright view of the chest is obtained. COMPARISON: Chest x-ray from one day earlier and older studies FINDINGS: Persistent mild cardiomegaly with multilead pacemaker/defibrillator. Overlying sternal wir es along with metallic aortic valve redemonstrated. Persistent bibasilar opacities and chronic parenc hymal change. Few slightly more prominent hannah B lines in the periphery. Osseous structures are int act. IMPRESSION: Slightly more prominent interstitial edema. Persistent cardiomegaly with small to tiny bi lateral pleural effusions and left greater than right bibasilar atelectasis and/or infiltrate. Correl ate for slightly worsening CHF exacerbation.
[2020-07-31] MEDS: DEXTROSE 5%-0.45% NACL 1,000 ML IV SCH (09:58)
[2020-07-31 10:05] LABS: African American GFR (CKD) 77.9 (60.0-200.0); Anion Gap 5.9 mmol/L (4.00-12.00); BUN/Creat Ratio 31.25 Ratio (12.00-20.00); Calcium 8.3 mg/dL (8.7-10.3); Carbon Dioxide 27.1 mmol/L (21.6-31.8); Non-African American GFR(CKD) 67.2 (60.0-200.0); Potassium 3.6 mmol/L (3.5-5.5)
[2020-07-31 11:42] LABS: Glucose,Whole Blood 134 mg/dL (75-99)
--- NOTE | 2020-07-31 12:19 | P.PN ---
Subjective Progress Note Date: 07/31/20 HISTORY OF PRESENT ILLNESS: 07/28/2020 Patient is status post exploratory laparotomy, lysis of adhesions, and small bowel resection secondary to small bowel obstruction due to small bowel stricture with Dr. Oliver. Postop day #1. Patient examined this morning at the bedside. She denies chest pain or pressure. Denies shortness of breath. She has a congested cough upon examination. NG tube with bilious drainage. Wallace catheter noted with dark urine output. Patient's INR 2.71 today. Coumadin remains on hold. Hemoglobin 7.8 today, down from 11.7 yesterday. Echocardiogram completed revealed ejection fraction 40-45%, moderate aortic regurgitation, moderate aortic stenosis, moderate to severe tricuspid regurgitation, and severe pulmonary hypertension 07/29/2020 Patient examined this morning at the bedside. NG tube has been discontinued. Patient received a 2 L fluid bolus per Gen. surgery yesterday. Telemetry reveals paced rhythm in the 70s. Blood pressure 124/76. She is afebrile. Urine output over the last 24 hours is 630 mL. Hemoglobin 7.1 today, down from 7.8 yesterday and 11.7 preoperatively. INR 2.65. Coumadin remains on hold. 07/30/2020 Patient examined at the bedside. She reports abdominal pain this morning. She reports passing small amounts of flatus. Wallace was discontinued and patient is due to void. Patients hemoglobin 6.4 today. 07/31/2020 Patient examined this morning. She is sitting up in the chair. She reports mild abdominal discomfort. Denies chest pain or pressure. She received 1 unit RBC yesterday. Hemoglobin 8.6 today. INR 2.2 PHYSICAL EXAM: VITAL SIGNS: Reviewed. GENERAL: Well-developed in no acute distress. NECK: Supple. No JVD or thyromegaly LUNGS: Respirations even and unlabored. Lungs diminished. HEART: Telemetry reveals paced rhythm. S1 and S2 heard. Systolic murmur noted. EXTREMITIES: Normal range of motion. No clubbing or cyanosis. Peripheral pulses intact. No lower extremity edema ASSESSMENT: Small bowel obstruction secondary to small bowel stricture, status post e xploratory laparotomy, lysis of lesions, and small bowel resection Chronic persistent atrial fibrillation, on anticoagulation with Coumadin Valvular heart disease History of permanent pacemaker insertion History of mitral valve replacement, performed several years ago PLAN: Continue postoperative management per Dr. Oliver Resume Coumadin. 1.25mg tonight. Repeat INR and hemoglobin in AM Resume aspirin Resume home dose of Demadex Continue pulmonary toileting Continue telemetry monitoring Further recommendations pending patient course Nurse practitioner note has been reviewed by physician. Signing provider agrees with the documented findings, assessment, and plan of care. Objective - Vital Signs Vital signs: Vital Signs Temp 98.3 F 07/31/20 07:13 Pulse 97 07/31/20 08:06 Resp 14 07/31/20 07:13 BP 132/77 07/31/20 07:13 Pulse Ox 98 07/31/20 07:13 Intake & Output 07/30/20 07/31/20 07/31/20 18:59 06:59 18:59 Intake Total 310 Output Total 800 1 Balance -490 -1 Intake: Blood Product 310 Rc As-1 Unit 310 [id number] Output: Urine 800 1 Other: Voiding Method Toilet Toilet Diaper Diaper # Voids 2 1 # Bowel Movements 1 - Labs CBC & Chem 7: 07/31/20 05:56 07/31/20 05:56 Labs: Abnormal Lab Results - Last 24 Hours (Table) 07/30/20 07/30/20 07/30/20 Range/Units 05:42 11:23 12:09 WBC (3.8-10.6) k/uL RBC (3.80-5.40) m/uL Hgb 6.4 L* (12.0-15.0) g/dL Hct (34.0-46.0) % MCH (27.0-32.0) pg MCHC (31.0-37.0) g/dL RDW (11.5-15.5) % Absolute Nucleated RBC (0.00-0.00) X 10*3/uL Immature Gran # (0.00-0.04) X 10*3/uL Neutrophils # (1.3-7.7) k/uL Lymphocytes # (1.0-4.8) k/uL NRBC/100 WBC Diff (0.0-0.0) /100 WBCS PT (9.0-12.0) sec INR (<1.2) Chloride (96-109) mmol/L BUN/Creatinine Ratio (12.00-20.00) Ratio Glucose (70-110) mg/dL POC Glucose (mg/dL) 246 H (75-99) mg/dL Calcium (8.7-10.3) mg/dL Crossmatch See Detail 07/30/20 07/30/20 07/30/20 Range/Units 16:52 19:00 20:41 WBC 11.1 H (3.8-10.6) k/uL RBC 3.42 L (3.80-5.40) m/uL Hgb 9.3 L D (12.0-15.0) g/dL Hct 30.3 L (34.0-46.0) % MCH (27.0-32.0) pg MCHC 30.7 L (31.0-37.0) g/dL RDW 18.0 H (11.5-15.5) % Absolute Nucleated RBC (0.00-0.00) X 10*3/uL Immature Gran # (0.00-0.04) X 10*3/uL Neutrophils # 9.3 H (1.3-7.7) k/uL Lymphocytes # 0.7 L (1.0-4.8) k/uL NRBC/100 WBC Diff (0.0-0.0) /100 WBCS PT (9.0-12.0) sec INR (<1.2) Chloride (96-109) mmol/L BUN/Creatinine Ratio (12.00-20.00) Ratio Glucose (70-110) mg/dL POC Glucose (mg/dL) 164 H 175 H (75-99) mg/dL Calcium (8.7-10.3) mg/dL Crossmatch 07/31/20 07/31/20 07/31/20 Range/Units 01:49 05:56 05:56 WBC (3.8-10.6) k/uL RBC 3.21 L (3.80-5.40) m/uL Hgb 8.6 L (12.0-15.0) g/dL Hct 28.8 L (34.0-46.0) % MCH 26.8 L (27.0-32.0) pg MCHC 29.9 L (31.0-37.0) g/dL RDW 18.3 H (11.5-15.5) % Absolute Nucleated RBC 0.09 H (0.00-0.00) X 10*3/uL Immature Gran # 0.05 H (0.00-0.04) X 10*3/uL Neutrophils # (1.3-7.7) k/uL Lymphocytes # 0.55 L (1.0-4.8) k/uL NRBC/100 WBC Diff 1.0 H (0.0-0.0) /100 WBCS PT 21.2 H (9.0-12.0) sec INR 2.2 H (<1.2) Chloride (96-109) mmol/L BUN/Creatinine Ratio (12.00-20.00) Ratio Glucose (70-110) mg/dL POC Glucose (mg/dL) 166 H (75-99) mg/dL Calcium (8.7-10.3) mg/dL Crossmatch 07/31/20 07/31/20 Range/Units 05:56 06:44 WBC (3.8-10.6) k/uL RBC (3.80-5.40) m/uL Hgb (12.0-15.0) g/dL Hct (34.0-46.0) % MCH (27.0-32.0) pg MCHC (31.0-37.0) g/dL RDW (11.5-15.5) % Absolute Nucleated RBC (0.00-0.00) X 10*3/uL Immature Gran # (0.00-0.04) X 10*3/uL Neutrophils # (1.3-7.7) k/uL Lymphocytes # (1.0-4.8) k/uL NRBC/100 WBC Diff (0.0-0.0) /100 WBCS PT (9.0-12.0) sec INR (<1.2) Chloride 110 H (96-109) mmol/L BUN/Creatinine Ratio 31.25 H (12.00-20.00) Ratio Glucose 153 H (70-110) mg/dL POC Glucose (mg/dL) 149 H (75-99) mg/dL Calcium 8.3 L (8.7-10.3) mg/dL Crossmatch
[2020-07-31] MEDS: TORSEMIDE 20 MG TAB PO SCH (13:20)
--- NOTE | 2020-07-31 13:24 | P.PN ---
Subjective Progress Note Date: 07/31/20 CHIEF COMPLAINT: Abdominal pain HISTORY OF PRESENT ILLNESS: Patient is followed for small bowel obstruction secondary to small bowel stricture. She is status post exploratory laparotomy, lysis of adhesion and small bowel resection. Patient is passing gas and having bowel movements. She did receive 1 unit of blood for hemoglobin of 6.4 yesterday. Her hemoglobin is 8.6 today. WBC 9.0 to INR 2.2 sodium 143 PHYSICAL EXAM: VITAL SIGNS: Reviewed. GENERAL: Well-developed in no acute distress. HEENT: No sclera icterus. Extraocular movements grossly intact. Moist buccal mucosa. Head is atraumatic, normocephalic. ABDOMEN: Soft. Nondistended. Incision site clean dry and intact NEUROLOGIC: Alert and oriented. Slightly confused. Cranial nerves II through XII grossly intact. ASSESSMENT: 1. 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 Hypokalemia resolved PLAN: -Advance diet to full liquids -Continue pain medication as needed -Encouraged patient to increase activity -Encouraged patient to use incentive spirometer -Okay to resume Coumadin from surgical standpoint Physician Videotape Operator note has been reviewed by physician. Signing provider agrees with the documented findings, assessment, and plan of care. Objective - Vital Signs Vital signs: Vital Signs Temp 98.5 F 07/31/20 12:27 Pulse 91 07/31/20 12:27 Resp 16 07/31/20 12:27 BP 132/74 07/31/20 12:27 Pulse Ox 95 07/31/20 12:27 Intake & Output 07/30/20 07/31/20 07/31/20 18:59 06:59 18:59 Intake Total 310 Output Total 800 1 Balance -490 -1 Weight 61.235 kg Intake: Blood Product 310 Rc As-1 Unit 310 [id number] Output: Urine 800 1 Other: Voiding Method Toilet Toilet Diaper Diaper # Voids 2 1 # Bowel Movements 1 - Labs CBC & Chem 7: 07/31/20 05:56 07/31/20 05:56 Labs: Abnormal Lab Results - Last 24 Hours (Table) 07/30/20 07/30/20 07/30/20 Range/Units 11:23 16:52 19:00 WBC 11.1 H (3.8-10.6) k/uL RBC 3.42 L (3.80-5.40) m/uL Hgb 9.3 L D (11.4-16.0) gm/dL Hct 30.3 L (34.0-46.0) % MCH (27.0-32.0) pg MCHC 30.7 L (31.0-37.0) g/dL RDW 18.0 H (11.5-15.5) % Absolute Nucleated RBC (0.00-0.00) X 10*3/uL Immature Gran # (0.00-0.04) X 10*3/uL Neutrophils # 9.3 H (1.3-7.7) k/uL Lymphocytes # 0.7 L (1.0-4.8) k/uL NRBC/100 WBC Diff (0.0-0.0) /100 WBCS PT (9.0-12.0) sec INR (<1.2) Chloride (96-109) mmol/L BUN/Creatinine Ratio (12.00-20.00) Ratio Glucose (70-110) mg/dL POC Glucose (mg/dL) 164 H (75-99) mg/dL Calcium (8.7-10.3) mg/dL Crossmatch See Detail 07/30/20 07/31/20 07/31/20 Range/Units 20:41 01:49 05:56 WBC (3.8-10.6) k/uL RBC (3.80-5.40) m/uL Hgb (11.4-16.0) gm/dL Hct (34.0-46.0) % MCH (27.0-32.0) pg MCHC (31.0-37.0) g/dL RDW (11.5-15.5) % Absolute Nucleated RBC (0.00-0.00) X 10*3/uL Immature Gran # (0.00-0.04) X 10*3/uL Neutrophils # (1.3-7.7) k/uL Lymphocytes # (1.0-4.8) k/uL NRBC/100 WBC Diff (0.0-0.0) /100 WBCS PT 21.2 H (9.0-12.0) sec INR 2.2 H (<1.2) Chloride (96-109) mmol/L BUN/Creatinine Ratio (12.00-20.00) Ratio Glucose (70-110) mg/dL POC Glucose (mg/dL) 175 H 166 H (75-99) mg/dL Calcium (8.7-10.3) mg/dL Crossmatch 07/31/20 07/31/20 07/31/20 Range/Units 05:56 05:56 06:44 WBC (3.8-10.6) k/uL RBC 3.21 L (3.80-5.40) m/uL Hgb 8.6 L (11.4-16.0) gm/dL Hct 28.8 L (34.0-46.0) % MCH 26.8 L (27.0-32.0) pg MCHC 29.9 L (31.0-37.0) g/dL RDW 18.3 H (11.5-15.5) % Absolute Nucleated RBC 0.09 H (0.00-0.00) X 10*3/uL Immature Gran # 0.05 H (0.00-0.04) X 10*3/uL Neutrophils # (1.3-7.7) k/uL Lymphocytes # 0.55 L (1.0-4.8) k/uL NRBC/100 WBC Diff 1.0 H (0.0-0.0) /100 WBCS PT (9.0-12.0) sec INR (<1.2) Chloride 110 H (96-109) mmol/L BUN/Creatinine Ratio 31.25 H (12.00-20.00) Ratio Glucose 153 H (70-110) mg/dL POC Glucose (mg/dL) 149 H (75-99) mg/dL Calcium 8.3 L (8.7-10.3) mg/dL Crossmatch 07/31/20 Range/Units 11:41 WBC (3.8-10.6) k/uL RBC (3.80-5.40) m/uL Hgb (11.4-16.0) gm/dL Hct (34.0-46.0) % MCH (27.0-32.0) pg MCHC (31.0-37.0) g/dL RDW (11.5-15.5) % Absolute Nucleated RBC (0.00-0.00) X 10*3/uL Immature Gran # (0.00-0.04) X 10*3/uL Neutrophils # (1.3-7.7) k/uL Lymphocytes # (1.0-4.8) k/uL NRBC/100 WBC Diff (0.0-0.0) /100 WBCS PT (9.0-12.0) sec INR (<1.2) Chloride (96-109) mmol/L BUN/Creatinine Ratio (12.00-20.00) Ratio Glucose (70-110) mg/dL POC Glucose (mg/dL) 134 H (75-99) mg/dL Calcium (8.7-10.3) mg/dL Crossmatch
[2020-07-31] MEDS: ACETAMINOPHEN TAB 325 MG TAB PO PRN (13:40)
--- NOTE | 2020-07-31 14:49 | P.PN ---
<Solomon Thomas - Last Filed: 07/31/20 13:48> Subjective Progress Note Date: 07/31/20 Principal diagnosis: Partial small bowel obstruction with concerns for underlying infectious process such as enteritis Hospital Course: Patient is an 84-year-old female with a past medical history including CAD with pacemaker/defibrillator placement, mitral valve replacement on Coumadin, chronic diastolic heart failure, severe pulmonary hypertension, hypertension, hyperlipidemia, hypothyroidism, neuropathy, GERD, and history of a bowel obstruction with herniation resulting in a small bowel resection. The patient presented to [facility] with a chief complaint of abdominal pain and distention and was admitted for partial bowel obstruction with concerns of underlying infectious process such as enteritis. CT scan abdomen and pelvis was completed revealing partial SBO in left mid abdomen due to adhesions from a djacent surgical change and mild ill-defined fluid and fat stranding related to lower abdomen is present making underlying infectious process or enteritis not entirely excluded. Coumadin was discontinued and patient was placed on heparin infusion to maintain anticoagulation until surgical procedure. Patient was placed on IV antibiotics: Flagyl and Rocephin, NG tube was placed to LIS for decompression and pt underwent an exploratory laparotomy with lysis of adhesions and small bowel resection on 07/27/[address] Oliver. Physical exam: Patient was seen and fully evaluated at the bedside. Vital signs reviewed and stable. Patient continues to report mild surgical incision site tenderness to her abdomen. She states that she has been able to pass gas, and has had a very small bowel movement yesterday evening. Patient was found yesterday to have acute blood loss anemia with hemoglobin of 6.1 and received transfusion of 1 unit PRBCs with posttransfusion hemoglobin of 9.3 and repeat today of 8.6. Patient denies having any other complaints including fever, chills, diaphoresis, chest pain, palpitations, shortness of breath, dyspnea with exertion, or any difficulties with or changes in urinary function. Surgical dressing to midline abdomen intact with no noted signs of bleeding. Patient was seen and fully evaluated at the bedside. Vital signs reviewed and stable. NG tube was removed yesterday. Pt is now postop day 3 and reports mandeep nued mild abdominal discomfort, but states she is passing flatus. She is tolerating a clear liquid diet and denies having any episodes of nausea or vomiting. Wallace catheter also removed yesterday and patient reports urinating without any difficulties. General: non toxic, no distress, appears at stated age. Derm: warm, dry Head: atraumatic, normocephalic, symmetric Eyes: EOMI, no lid lag, anicteric sclera Mouth: no lip lesion, mucus membranes moist Cardiovascular: Murmur present. Pacemaker/defibrillator left anterior chest. Positive posterior tibial pulses bilaterally. Cap refill less than 2 seconds. Lungs: Respirations even, regular, and unlabored on room air. Lungs CTA bilateral, no rhonchi, no rales, no wheezing, and no accessory muscle use Abdominal: soft distended . Postsurgical incision site tenderness. No guarding, no appreciable organomegaly. Surgical dressing to midline abdomen intact with no noted signs of bleeding. Ext: No gross muscle atrophy, no edema, no contractures. Neuro: Speech clear, movement and sensation of upper and lower extremities intact, no focal neuro deficits Psych: Alert, oriented, appropriate affect Assessment and Plan of Care: Partial small bowel obstruction with concerns for underlying infectious process such as enteritis -CT revealing partial SBO in left mid abdomen due to adhesions from adjacent surgical change and mild ill-defined fluid and fat stranding related to lower abdomen is present making underlying infectious process or enteritis not entirely excluded. -Patient was placed on IV antibiotics: Flagyl and Rocephin stopped on 07/28/20, NG tube was placed to LIS for decompression and pt underwent an exploratory laparotomy with lysis of adhesions and small bowel resection on 07/27/[address] Oliver.. -Patient is day 4 postop, NG tube was removed 07/28/20 and patient is now tolerating a full liquid diet without any episodes of nausea or vomiting. -Continue full liquid diet and advance as recommended by general surgery. -Symptomatic care and pain management with Zofran as needed for nausea/vomiting and morphine as needed for pain. Severe Pulmonary Hypertension with Acute exacerbation of Chronic Diastolic Heart Failure -Echocardiogram completed 03/25/20 revealed a preserved EF of 50-55% with moderate aortic stenosis and moderate to severe pulmonary hypertension. -Echocardiogram completed 07/26/20 revealed a moderately impaired ejection fraction between 40 and 45% with moderate aortic stenosis and severe pulmonary hypertension. -Patient was found to have bilateral diffuse coarse crackles upon assessment this morning with new onset JVD and a CXR was completed revealing worsening CHF exacerbation. -Patient given one-time dose of Lasix 40 mg IVP and we will repeat a second dose tonight and reassess in the a.m.. -We will continue to monitor I's and O's closely along with daily electrolytes. Acute blood loss anemia, improved -Preoperative hemoglobin 11.7 and has trended down daily. Patient was found yesterday to have acute blood loss anemia with hemoglobin of 6.1 and received transfusion of 1 unit PRBCs with posttransfusion hemoglobin of 9.3 and repeat today of 8.6. -Coumadin was held secondary to decreasing hemoglobin and need for transfusion. -We will continue to monitor H&H closely. History of atrial fibrillation and mitral valve replacement on Coumadin -INR therapeutic at 2.2. -Continue anticoagulation with Coumadin, pharmacy to dose. Hypertension -Monitor vital signs and continue metoprolol. Hyperlipidemia -Continue daily medication regimen with atorvastatin. Hypothyroidism -Continue daily medication regimen with levothyroxine 25 g GERD -Continue daily medication regimen with Protonix. CODE STATUS: Full code DVT prophylaxis: Coumadin. Discussed with: Patient and RN Anticipated discharge date: Pending clinical course Anticipated discharge place: home A total of 45 minutes was spent on the care of this complex patient more than 50% of the time was spent in counseling and care coordination. Objective - Vital Signs Vital signs: Vital Signs Temp 98.3 F 07/31/20 07:13 Pulse 97 07/31/20 08:06 Resp 14 07/31/20 07:13 BP 132/77 07/31/20 07:13 Pulse Ox 98 07/31/20 07:13 Intake & Output 07/30/20 07/31/20 07/31/20 18:59 06:59 18:59 Intake Total 310 Output Total 800 1 Balance -490 -1 Intake: Blood Product 310 Rc As-1 Unit 310 [id number] Output: Urine 800 1 Other: Voiding Method Toilet Toilet Diaper Diaper # Voids 2 1 # Bowel Movements 1 - Labs CBC & Chem 7: 07/31/20 05:56 07/31/20 05:56 Labs: Abnormal Lab Results - Last 24 Hours (Table) 07/30/20 07/30/20 07/30/20 Range/Units 05:42 11:23 12:09 WBC (3.8-10.6) k/uL RBC (3.80-5.40) m/uL Hgb 6.4 L* (12.0-15.0) g/dL Hct (34.0-46.0) % MCH (27.0-32.0) pg MCHC (31.0-37.0) g/dL RDW (11.5-15.5) % Absolute Nucleated RBC (0.00-0.00) X 10*3/uL Immature Gran # (0.00-0.04) X 10*3/uL Neutrophils # (1.3-7.7) k/uL Lymphocytes # (1.0-4.8) k/uL NRBC/100 WBC Diff (0.0-0.0) /100 WBCS PT (9.0-12.0) sec INR (<1.2) Chloride (96-109) mmol/L BUN/Creatinine Ratio (12.00-20.00) Ratio Glucose (70-110) mg/dL POC Glucose (mg/dL) 246 H (75-99) mg/dL Calcium (8.7-10.3) mg/dL Crossmatch See Detail 07/30/20 07/30/20 07/30/20 Range/Units 16:52 19:00 20:41 WBC 11.1 H (3.8-10.6) k/uL RBC 3.42 L (3.80-5.40) m/uL Hgb 9.3 L D (12.0-15.0) g/dL Hct 30.3 L (34.0-46.0) % MCH (27.0-32.0) pg MCHC 30.7 L (31.0-37.0) g/dL RDW 18.0 H (11.5-15.5) % Absolute Nucleated RBC (0.00-0.00) X 10*3/uL Immature Gran # (0.00-0.04) X 10*3/uL Neutrophils # 9.3 H (1.3-7.7) k/uL Lymphocytes # 0.7 L (1.0-4.8) k/uL NRBC/100 WBC Diff (0.0-0.0) /100 WBCS PT (9.0-12.0) sec INR (<1.2) Chloride (96-109) mmol/L BUN/Creatinine Ratio (12.00-20.00) Ratio Glucose (70-110) mg/dL POC Glucose (mg/dL) 164 H 175 H (75-99) mg/dL Calcium (8.7-10.3) mg/dL Crossmatch 07/31/20 07/31/20 07/31/20 Range/Units 01:49 05:56 05:56 WBC (3.8-10.6) k/uL RBC 3.21 L (3.80-5.40) m/uL Hgb 8.6 L (12.0-15.0) g/dL Hct 28.8 L (34.0-46.0) % MCH 26.8 L (27.0-32.0) pg MCHC 29.9 L (31.0-37.0) g/dL RDW 18.3 H (11.5-15.5) % Absolute Nucleated RBC 0.09 H (0.00-0.00) X 10*3/uL Immature Gran # 0.05 H (0.00-0.04) X 10*3/uL Neutrophils # (1.3-7.7) k/uL Lymphocytes # 0.55 L (1.0-4.8) k/uL NRBC/100 WBC Diff 1.0 H (0.0-0.0) /100 WBCS PT 21.2 H (9.0-12.0) sec INR 2.2 H (<1.2) Chloride (96-109) mmol/L BUN/Creatinine Ratio (12.00-20.00) Ratio Glucose (70-110) mg/dL POC Glucose (mg/dL) 166 H (75-99) mg/dL Calcium (8.7-10.3) mg/dL Crossmatch 07/31/20 07/31/20 Range/Units 05:56 06:44 WBC (3.8-10.6) k/uL RBC (3.80-5.40) m/uL Hgb (12.0-15.0) g/dL Hct (34.0-46.0) % MCH (27.0-32.0) pg MCHC (31.0-37.0) g/dL RDW (11.5-15.5) % Absolute Nucleated RBC (0.00-0.00) X 10*3/uL Immature Gran # (0.00-0.04) X 10*3/uL Neutrophils # (1.3-7.7) k/uL Lymphocytes # (1.0-4.8) k/uL NRBC/100 WBC Diff (0.0-0.0) /100 WBCS PT (9.0-12.0) sec INR (<1.2) Chloride 110 H (96-109) mmol/L BUN/Creatinine Ratio 31.25 H (12.00-20.00) Ratio Glucose 153 H (70-110) mg/dL POC Glucose (mg/dL) 149 H (75-99) mg/dL Calcium 8.3 L (8.7-10.3) mg/dL Crossmatch <Salima Barbour - Last Filed: 07/31/20 16:01> Subjective Patient seen and examined independently. Patient was also seen by Solomon Thomas NP and case was discussed. I am in agreement with subjective, physical exam, assessment and plan as written above and amended below. Patient examined at bedside. She reports some shortness breath. Her abdominal pain is doing well and she has not moving her being touch but increases with being touched. She denies any nausea or vomiting. She admits to weakness. She is aware that she likely will need 24-hour care, needing the hospital. She sta rochelle her daughter was in the [facility] [employer] at [facility] for 6 years and lives 2 blocks away. She would be willing to stay with her daughter on discharge. We will have physical therapy reassess her to determine if that seems appropriate versus the need for rehab. General: non toxic, no distress, appears at stated age Derm: warm, dry Head: atraumatic, normocephalic, symmetric Eyes: EOMI, no lid lag, anicteric sclera Mouth: no lip lesion, mucus membranes moist Cardiovascular: S1S2 reg, no murmur, positive posterior tibial pulse bilateral, Lungs: Rhonchi bilateral , no accessory muscle use Abdominal: soft, tender to palpation diffusely, no guarding, no appreciable organomegaly Ext: no gross muscle atrophy, trace edema, no contractures Neuro: CN II-XI grossly intact, no focal neuro deficits Psych: Alert, oriented, appropriate affect Objective - Vital Signs Vital signs: Vital Signs Temp 98.5 F 07/31/20 12:27 Pulse 72 07/31/20 15:35 Resp 15 07/31/20 14:07 BP 132/74 07/31/20 12:27 Pulse Ox 95 07/31/20 12:27 Intake & Output 07/30/20 07/31/20 07/31/20 18:59 06:59 18:59 Intake Total 310 Output Total 800 1 Balance -490 -1 Weight 61.235 kg Intake: Blood Product 310 Rc As-1 Unit 310 [id number] Output: Urine 800 1 Other: Voiding Method Toilet Toilet Diaper Diaper # Voids 2 1 # Bowel Movements 1 - Labs CBC & Chem 7: 07/31/20 05:56 07/31/20 05:56 Labs: Abnormal Lab Results - Last 24 Hours (Table) 07/30/20 07/30/20 07/30/20 Range/Units 11:23 16:52 19:00 WBC 11.1 H (3.8-10.6) k/uL RBC 3.42 L (3.80-5.40) m/uL Hgb 9.3 L D (11.4-16.0) gm/dL Hct 30.3 L (34.0-46.0) % MCH (27.0-32.0) pg MCHC 30.7 L (31.0-37.0) g/dL RDW 18.0 H (11.5-15.5) % Absolute Nucleated RBC (0.00-0.00) X 10*3/uL Immature Gran # (0.00-0.04) X 10*3/uL Neutrophils # 9.3 H (1.3-7.7) k/uL Lymphocytes # 0.7 L (1.0-4.8) k/uL NRBC/100 WBC Diff (0.0-0.0) /100 WBCS PT (9.0-12.0) sec INR (<1.2) Chloride (96-109) mmol/L BUN/Creatinine Ratio (12.00-20.00) Ratio Glucose (70-110) mg/dL POC Glucose (mg/dL) 164 H (75-99) mg/dL Calcium (8.7-10.3) mg/dL Crossmatch See Detail 07/30/20 07/31/20 07/31/20 Range/Units 20:41 01:49 05:56 WBC (3.8-10.6) k/uL RBC (3.80-5.40) m/uL Hgb (11.4-16.0) gm/dL Hct (34.0-46.0) % MCH (27.0-32.0) pg MCHC (31.0-37.0) g/dL RDW (11.5-15.5) % Absolute Nucleated RBC (0.00-0.00) X 10*3/uL Immature Gran # (0.00-0.04) X 10*3/uL Neutrophils # (1.3-7.7) k/uL Lymphocytes # (1.0-4.8) k/uL NRBC/100 WBC Diff (0.0-0.0) /100 WBCS PT 21.2 H (9.0-12.0) sec INR 2.2 H (<1.2) Chloride (96-109) mmol/L BUN/Creatinine Ratio (12.00-20.00) Ratio Glucose (70-110) mg/dL POC Glucose (mg/dL) 175 H 166 H (75-99) mg/dL Calcium (8.7-10.3) mg/dL Crossmatch 07/31/20 07/31/20 07/31/20 Range/Units 05:56 05:56 06:44 WBC (3.8-10.6) k/uL RBC 3.21 L (3.80-5.40) m/uL Hgb 8.6 L (11.4-16.0) gm/dL Hct 28.8 L (34.0-46.0) % MCH 26.8 L (27.0-32.0) pg MCHC 29.9 L (31.0-37.0) g/dL RDW 18.3 H (11.5-15.5) % Absolute Nucleated RBC 0.09 H (0.00-0.00) X 10*3/uL Immature Gran # 0.05 H (0.00-0.04) X 10*3/uL Neutrophils # (1.3-7.7) k/uL Lymphocytes # 0.55 L (1.0-4.8) k/uL NRBC/100 WBC Diff 1.0 H (0.0-0.0) /100 WBCS PT (9.0-12.0) sec INR (<1.2) Chloride 110 H (96-109) mmol/L BUN/Creatinine Ratio 31.25 H (12.00-20.00) Ratio Glucose 153 H (70-110) mg/dL POC Glucose (mg/dL) 149 H (75-99) mg/dL Calcium 8.3 L (8.7-10.3) mg/dL Crossmatch 07/31/20 Range/Units 11:41 WBC (3.8-10.6) k/uL RBC (3.80-5.40) m/uL Hgb (11.4-16.0) gm/dL Hct (34.0-46.0) % MCH (27.0-32.0) pg MCHC (31.0-37.0) g/dL RDW (11.5-15.5) % Absolute Nucleated RBC (0.00-0.00) X 10*3/uL Immature Gran # (0.00-0.04) X 10*3/uL Neutrophils # (1.3-7.7) k/uL Lymphocytes # (1.0-4.8) k/uL NRBC/100 WBC Diff (0.0-0.0) /100 WBCS PT (9.0-12.0) sec INR (<1.2) Chloride (96-109) mmol/L BUN/Creatinine Ratio (12.00-20.00) Ratio Glucose (70-110) mg/dL POC Glucose (mg/dL) 134 H (75-99) mg/dL Calcium (8.7-10.3) mg/dL Crossmatch
[2020-07-31 16:26] LABS: Glucose,Whole Blood 154 mg/dL (75-99)
[2020-07-31] MEDS ORDERED: WARFARIN 1.25 MG TAB PO ONE (18:00)
[2020-07-31] MEDS ORDERED: FUROSEMIDE 10 MG/ML 4 ML VIAL IV ONE (19:00)
[2020-07-31 20:38] LABS: Glucose,Whole Blood 149 mg/dL (75-99)
[2020-07-31] MEDS: LEVOTHYROXINE 25 MCG TAB PO SCH (21:14)
[2020-07-31] MEDS: ATORVASTATIN 10 MG TAB PO SCH (21:14)
[2020-08-01 02:26] LABS: Glucose,Whole Blood 134 mg/dL (75-99)
[2020-08-01] MEDS: IPRATROPIUM-ALBUTEROL 3 ML NEB INHALATION PRN ×4 (06:57→20:23)
[2020-08-01] MEDS: SYMBICORT 160-4.5 MCG INHALER INHALATION PRN ×2 (06:57→20:23)
[2020-08-01 07:04] LABS: Glucose,Whole Blood 143 mg/dL (75-99)
[2020-08-01] MEDS: ASPIRIN 81 MG PO SCH (08:46)
[2020-08-01] MEDS: FAMOTIDINE 20 MG/2 ML VIAL IV SCH (08:47)
[2020-08-01] MEDS: GABAPENTIN 100 MG CAP PO SCH ×3 (08:47→21:34)
[2020-08-01] MEDS: METOPROLOL SUCCINATE (ER) 50 MG TAB.ER.24H PO SCH ×3 (08:48→21:34)
[2020-08-01] MEDS: HYDROmorphone 1 MG/ML 1 ML SYRINGE IVP PRN (08:48)
[2020-08-01] MEDS ORDERED: TORSEMIDE 20 MG TAB PO SCH (09:00)
[2020-08-01 09:34] LABS: Basophils # (A) 0.02 X 10*3/uL (0.00-0.10); Basophils % (A) 0.2 %; Eosinophils # (A) 0.24 X 10*3/uL (0.04-0.35); Eosinophils % (A) 2.4 %; HCT 30.5 % (37.2-46.3); HGB 8.9 g/dL (12.0-15.0); Lymphocytes # (A) 0.65 X 10*3/uL (0.90-5.00); Lymphocytes % (A) 6.4 %; MCH 25.9 pg (27.0-32.0); MCHC 29.2 g/dL (32.0-37.0); MCV 88.9 fL (80.0-97.0); Mean Platelet Volume 10.1 fL (9.5-12.2); Monocytes # (A) 0.88 X 10*3/uL (0.20-1.00); Monocytes % (A) 8.6 %; Neutrophils # (A) 8.36 X 10*3/uL (1.80-7.70); Neutrophils % (A) 81.9 %; Platelet Count 223 X 10*3/uL (140-440); RBC 3.43 X 10*6/uL (4.10-5.20); RDW 18.2 % (11.5-14.5)
[2020-08-01 10:10] LABS: African American GFR (CKD) 77.9 (60.0-200.0); Anion Gap 8.6 mmol/L (4.00-12.00); BUN/Creat Ratio 21.25 Ratio (12.00-20.00); Calcium 8.1 mg/dL (8.7-10.3); Carbon Dioxide 32.4 mmol/L (21.6-31.8); Magnesium 1.9 mg/dL (1.5-2.4); Non-African American GFR(CKD) 67.2 (60.0-200.0); Potassium 3.2 mmol/L (3.5-5.5)
[2020-08-01 10:26] LABS: INR 1.85 (0.90-1.11); Prothrombin Time 19.4 sec (9.9-11.9)
[2020-08-01] MEDS ORDERED: POTASSIUM CHLORIDE ER 20 MEQ TAB.ER PO STA (10:48)
--- NOTE | 2020-08-01 10:54 | P.PN ---
Subjective Progress Note Date: 08/01/20 CHIEF COMPLAINT: Abdominal pain HISTORY OF PRESENT ILLNESS: Patient is followed for small bowel obstruction secondary to small bowel stricture. She is status post exploratory laparotomy, lysis of adhesion and small bowel resection. Patient reports that she did not have a bowel movement yesterday. Her last bowel movement was on July 30. She is passing gas. She denies any nausea or vomiting. She feels her pain is controlled. She is tolerating full liquids. Medicine did give a dose of IV Lasix yesterday for fluid overload. Patient's Coumadin was restarted by cardiology. She's afebrile. WBC 10.2 hemoglobin 8.9 INR 1.85 potassium 3.2 PHYSICAL EXAM: VITAL SIGNS: Reviewed. GENERAL: Well-developed in no acute distress. HEENT: No sclera icterus. Extraocular movements grossly intact. Moist buccal mucosa. Head is atraumatic, normocephalic. ABDOMEN: Soft. Nondistended. Incision site clean dry and intact NEUROLOGIC: Alert and oriented. Slightly confused. Cranial nerves II through XII grossly intact. ASSESSMENT: 1. 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 Hypokalemia being replaced 3. Anemia likely tom-dilutional to IV fluids PLAN: -Continue supportive care -Continue pain medication as needed -Encouraged patient to increase activity -Encouraged patient to use incentive spirometer Physician Adult Literacy Instructor note has been reviewed by physician. Signing provider agrees with the documented findings, assessment, and plan of care. Objective - Vital Signs Vital signs: Vital Signs Temp 97.8 F 08/01/20 06:51 Pulse 70 08/01/20 10:39 Resp 16 08/01/20 06:51 BP 161/81 08/01/20 06:51 Pulse Ox 99 08/01/20 06:51 Intake & Output 07/31/20 08/01/20 08/01/20 18:59 06:59 18:59 Weight 61.235 kg Other: Voiding Method Toilet Toilet Diaper Diaper # Voids 3 - Labs CBC & Chem 7: 08/01/20 05:32 08/01/20 05:32 Labs: Abnormal Lab Results - Last 24 Hours (Table) 07/31/20 07/31/20 07/31/20 Range/Units 11:41 16:24 20:36 WBC (4.50-10.00) X 10*3/uL RBC (4.10-5.20) X 10*6/uL Hgb (12.0-15.0) g/dL Hct (37.2-46.3) % MCH (27.0-32.0) pg MCHC (32.0-37.0) g/dL RDW (11.5-14.5) % Absolute Nucleated RBC (0.00-0.00) X 10*3/uL Immature Gran # (0.00-0.04) X 10*3/uL Neutrophils # (1.80-7.70) X 10*3/uL Lymphocytes # (0.90-5.00) X 10*3/uL NRBC/100 WBC Diff (0.0-0.0) /100 WBCS PT (9.9-11.9) sec INR (0.90-1.11) Sodium (135-145) mmol/L Potassium (3.5-5.5) mmol/L Carbon Dioxide (21.6-31.8) mmol/L BUN/Creatinine Ratio (12.00-20.00) Ratio Glucose (70-110) mg/dL POC Glucose (mg/dL) 134 H 154 H 149 H (75-99) mg/dL Calcium (8.7-10.3) mg/dL 08/01/20 08/01/20 08/01/20 Range/Units 02:24 05:32 05:32 WBC 10.20 H (4.50-10.00) X 10*3/uL RBC 3.43 L (4.10-5.20) X 10*6/uL Hgb 8.9 L (12.0-15.0) g/dL Hct 30.5 L (37.2-46.3) % MCH 25.9 L (27.0-32.0) pg MCHC 29.2 L (32.0-37.0) g/dL RDW 18.2 H (11.5-14.5) % Absolute Nucleated RBC 0.04 H (0.00-0.00) X 10*3/uL Immature Gran # 0.05 H (0.00-0.04) X 10*3/uL Neutrophils # 8.36 H (1.80-7.70) X 10*3/uL Lymphocytes # 0.65 L (0.90-5.00) X 10*3/uL NRBC/100 WBC Diff 0.4 H (0.0-0.0) /100 WBCS PT 19.4 H (9.9-11.9) sec INR 1.85 H (0.90-1.11) Sodium (135-145) mmol/L Potassium (3.5-5.5) mmol/L Carbon Dioxide (21.6-31.8) mmol/L BUN/Creatinine Ratio (12.00-20.00) Ratio Glucose (70-110) mg/dL POC Glucose (mg/dL) 134 H (75-99) mg/dL Calcium (8.7-10.3) mg/dL 08/01/20 08/01/20 Range/Units 05:32 07:03 WBC (4.50-10.00) X 10*3/uL RBC (4.10-5.20) X 10*6/uL Hgb (12.0-15.0) g/dL Hct (37.2-46.3) % MCH (27.0-32.0) pg MCHC (32.0-37.0) g/dL RDW (11.5-14.5) % Absolute Nucleated RBC (0.00-0.00) X 10*3/uL Immature Gran # (0.00-0.04) X 10*3/uL Neutrophils # (1.80-7.70) X 10*3/uL Lymphocytes # (0.90-5.00) X 10*3/uL NRBC/100 WBC Diff (0.0-0.0) /100 WBCS PT (9.9-11.9) sec INR (0.90-1.11) Sodium 146 H (135-145) mmol/L Potassium 3.2 L (3.5-5.5) mmol/L Carbon Dioxide 32.4 H (21.6-31.8) mmol/L BUN/Creatinine Ratio 21.25 H (12.00-20.00) Ratio Glucose 115 H (70-110) mg/dL POC Glucose (mg/dL) 143 H (75-99) mg/dL Calcium 8.1 L (8.7-10.3) mg/dL
[2020-08-01 11:39] LABS: Glucose,Whole Blood 154 mg/dL (75-99)
--- NOTE | 2020-08-01 12:00 | P.PN ---
Subjective Progress Note Date: 08/01/20 HISTORY OF PRESENT ILLNESS: 07/28/2020 Patient is status post exploratory laparotomy, lysis of adhesions, and small bowel resection secondary to small bowel obstruction due to small bowel stricture with Dr. Oliver. Postop day #1. Patient examined this morning at the bedside. She denies chest pain or pressure. Denies shortness of breath. She has a congested cough upon examination. NG tube with bilious drainage. Wallace catheter noted with dark urine output. Patient's INR 2.71 today. Coumadin remains on hold. Hemoglobin 7.8 today, down from 11.7 yesterday. Echocardiogram completed revealed ejection fraction 40-45%, moderate aortic regurgitation, moderate aortic stenosis, moderate to severe tricuspid regurgitation, and severe pulmonary hypertension 07/29/2020 Patient examined this morning at the bedside. NG tube has been discontinued. Patient received a 2 L fluid bolus per Gen. surgery yesterday. Telemetry reveals paced rhythm in the 70s. Blood pressure 124/76. She is afebrile. Urine output over the last 24 hours is 630 mL. Hemoglobin 7.1 today, down from 7.8 yesterday and 11.7 preoperatively. INR 2.65. Coumadin remains on hold. 07/30/2020 Patient examined at the bedside. She reports abdominal pain this morning. She reports passing small amounts of flatus. Wallace was discontinued and patient is due to void. Patients hemoglobin 6.4 today. 07/31/2020 Patient examined this morning. She is sitting up in the chair. She reports mild abdominal discomfort. Denies chest pain or pressure. She received 1 unit RBC yesterday. Hemoglobin 8.6 today. INR 2.2 08/01/2020 Patient examined this morning. She is sitting up in the chair. Patient denies chest pain or pressure. She denies shortness of breath. Patient has been resumed on Coumadin yesterday. INR today 1.85. Hemoglobin 8.9. PHYSICAL EXAM: VITAL SIGNS: Reviewed. GENERAL: Well-developed in no acute distress. NECK: Supple. No JVD or thyromegaly LUNGS: Respirations even and unlabored. Lungs diminished with scattered rhonchi. HEART: Telemetry reveals paced rhythm. S1 and S2 heard. Systolic murmur noted. EXTREMITIES: Normal range of motion. No clubbing or cyanosis. Peripheral pulses intact. No lower extremity edema ASSESSMENT: Small bowel obstruction secondary to small bowel stricture, status post exploratory laparotomy, lysis of lesions, and small bowel resection Chronic persistent atrial fibrillation, on anticoagulation with Coumadin Valvular heart disease History of permanent pacemaker insertion History of mitral valve replacement, performed several years ago Acute exacerbation of chronic diastolic heart failure PLAN: Continue postoperative management per Dr. Oliver Continue current cardiac medications. Demadex has been resumed. Continue coumadin per pharmacy Continue pulmonary toileting Continue telemetry monitoring We will follow on an as-needed basis. Please call with questions or concerns. Nurse practitioner note has been reviewed by physician. Signing provider agrees with the documented findings, assessment, and plan of care. Objective - Vital Signs Vital signs: Vital Signs Temp 97.8 F 08/01/20 06:51 Pulse 70 08/01/20 10:46 Resp 16 08/01/20 06:51 BP 161/81 08/01/20 06:51 Pulse Ox 99 08/01/20 06:51 Intake & Output 07/31/20 08/01/20 08/01/20 18:59 06:59 18:59 Weight 61.235 kg Other: Voiding Method Toilet Toilet Diaper Diaper # Voids 3 - Labs CBC & Chem 7: 08/01/20 05:32 08/01/20 05:32 Labs: Abnormal Lab Results - Last 24 Hours (Table) 07/31/20 07/31/20 08/01/20 Range/Units 16:24 20:36 02:24 WBC (4.50-10.00) X 10*3/uL RBC (4.10-5.20) X 10*6/uL Hgb (12.0-15.0) g/dL Hct (37.2-46.3) % MCH (27.0-32.0) pg MCHC (32.0-37.0) g/dL RDW (11.5-14.5) % Absolute Nucleated RBC (0.00-0.00) X 10*3/uL Immature Gran # (0.00-0.04) X 10*3/uL Neutrophils # (1.80-7.70) X 10*3/uL Lymphocytes # (0.90-5.00) X 10*3/uL NRBC/100 WBC Diff (0.0-0.0) /100 WBCS PT (9.9-11.9) sec INR (0.90-1.11) Sodium (135-145) mmol/L Potassium (3.5-5.5) mmol/L Carbon Dioxide (21.6-31.8) mmol/L BUN/Creatinine Ratio (12.00-20.00) Ratio Glucose (70-110) mg/dL POC Glucose (mg/dL) 154 H 149 H 134 H (75-99) mg/dL Calcium (8.7-10.3) mg/dL 08/01/20 08/01/20 08/01/20 Range/Units 05:32 05:32 05:32 WBC 10.20 H (4.50-10.00) X 10*3/uL RBC 3.43 L (4.10-5.20) X 10*6/uL Hgb 8.9 L (12.0-15.0) g/dL Hct 30.5 L (37.2-46.3) % MCH 25.9 L (27.0-32.0) pg MCHC 29.2 L (32.0-37.0) g/dL RDW 18.2 H (11.5-14.5) % Absolute Nucleated RBC 0.04 H (0.00-0.00) X 10*3/uL Immature Gran # 0.05 H (0.00-0.04) X 10*3/uL Neutrophils # 8.36 H (1.80-7.70) X 10*3/uL Lymphocytes # 0.65 L (0.90-5.00) X 10*3/uL NRBC/100 WBC Diff 0.4 H (0.0-0.0) /100 WBCS PT 19.4 H (9.9-11.9) sec INR 1.85 H (0.90-1.11) Sodium 146 H (135-145) mmol/L Potassium 3.2 L (3.5-5.5) mmol/L Carbon Dioxide 32.4 H (21.6-31.8) mmol/L BUN/Creatinine Ratio 21.25 H (12.00-20.00) Ratio Glucose 115 H (70-110) mg/dL POC Glucose (mg/dL) (75-99) mg/dL Calcium 8.1 L (8.7-10.3) mg/dL 08/01/20 08/01/20 Range/Units 07:03 11:38 WBC (4.50-10.00) X 10*3/uL RBC (4.10-5.20) X 10*6/uL Hgb (12.0-15.0) g/dL Hct (37.2-46.3) % MCH (27.0-32.0) pg MCHC (32.0-37.0) g/dL RDW (11.5-14.5) % Absolute Nucleated RBC (0.00-0.00) X 10*3/uL Immature Gran # (0.00-0.04) X 10*3/uL Neutrophils # (1.80-7.70) X 10*3/uL Lymphocytes # (0.90-5.00) X 10*3/uL NRBC/100 WBC Diff (0.0-0.0) /100 WBCS PT (9.9-11.9) sec INR (0.90-1.11) Sodium (135-145) mmol/L Potassium (3.5-5.5) mmol/L Carbon Dioxide (21.6-31.8) mmol/L BUN/Creatinine Ratio (12.00-20.00) Ratio Glucose (70-110) mg/dL POC Glucose (mg/dL) 143 H 154 H (75-99) mg/dL Calcium (8.7-10.3) mg/dL
[2020-08-01] MEDS ORDERED: FUROSEMIDE 10 MG/ML 4 ML VIAL IV STA (15:05)
--- NOTE | 2020-08-01 16:22 | P.PN ---
<Solomon Thomas - Last Filed: 08/01/20 16:09> Subjective Progress Note Date: 08/01/20 Principal diagnosis: Partial small bowel obstruction with concerns for underlying infectious process such as enteritis Hospital Course: Patient is an 84-year-old female with a past medical history including CAD with pacemaker/defibrillator placement, mitral valve replacement on Coumadin, chronic diastolic heart failure, severe pulmonary hypertension, hypertension, hyperlipidemia, hypothyroidism, neuropathy, GERD, and history of a bowel obstruction with herniation resulting in a small bowel resection. The patient presented to [facility] with a chief complaint of abdominal pain and distention and was admitted for partial bowel obstruction with concerns of underlying infectious process such as enteritis. CT scan abdomen and pelvis was completed revealing partial SBO in left mid abdomen due to adhesions from adjacent surgical change and mild ill-defined fluid and fat stranding related to lower abdomen is present making underlying infectious process or enteritis not entirely excluded. Coumadin was discontinued and patient was placed on heparin infusion to maintain anticoagulation until surgical procedure. Patient was placed on IV antibiotics: Flagyl and Rocephin, NG tube was placed to LIS for decompression and pt underwent an exploratory laparotomy with lysis of adhesions and small bowel resection on 07/27/[address] Oliver. Physical exam: Patient was seen and fully evaluated at the bedside. Vital signs reviewed and stable. Patient sitting up in the chair this morning. She continues to report mild surgical incision site tenderness to her abdomen. She states that she has been able to pass gas, but denies having a bowel movement yesterday or today. She states that she has been tolerating her full liquid diet, denying any episodes of nausea or vomiting. She also reports that she has been ambulating more often in her room. Her hemoglobin has remained normal since transfusion with morning results of 8.9 which is up from yesterday's 8.6. Patient denies having any other complaints at this time including including headache, lightheadedness, dizziness, chest pain, palpitations, shortness of breath, or experiencing any dyspnea with exertion. Surgical dressing to midline abdomen intact with no noted signs of bleeding. General: non toxic, no distress, appears at stated age. Derm: warm, dry Head: atraumatic, normocephalic, symmetric Eyes: EOMI, no lid lag, anicteric sclera Mouth: no lip lesion, mucus membranes moist Cardiovascular: Murmur present. Pacemaker/defibrillator left anterior chest. Positive posterior tibial pulses bilaterally. Cap refill less than 2 seconds. Lungs: Respirations even, regular, and unlabored on room air. Lungs CTA bilateral, no rhonchi, no rales, no wheezing, and no accessory muscle use Abdominal: Soft distended . Hypoactive bowel sounds. Postsurgical incision site tenderness. No guarding, no appreciable organomegaly. Surgical dressing to midline abdomen intact with no noted signs of bleeding. Ext: No gross muscle atrophy, no edema, no contractures. Neuro: Speech clear, movement and sensation of upper and lower extremities intact, no focal neuro deficits Psych: Alert, oriented, appropriate affect Assessment and Plan of Care: Partial small bowel obstruction with concerns for underlying infectious process such as enteritis -CT revealing partial SBO in left mid abdomen due to adhesions from adjacent surgical change and mild ill-defined fluid and fat stranding related to lower abdomen is present making underlying infectious process or enteritis not entirely excluded. -Patient was placed on IV antibiotics: Flagyl and Rocephin and stopped on 07/28/20, NG tube was placed to LIS for decompression and pt underwent an exploratory laparotomy with lysis of adhesions and small bowel resection on 07/27/[address] Oliver and NG tube was removed 07/28/20. -Patient is day 5 postop. -Continue full liquid diet and advance as recommended by general surgery. -Symptomatic care and pain management with Zofran as needed for nausea/vomiting and morphine as needed for pain. Severe Pulmonary Hypertension with Acute exacerbation of Chronic Diastolic Heart Failure -Echocardiogram completed 03/25/20 revealed a preserved EF of 50-55% with moderate aortic stenosis and moderate to severe pulmonary hypertension. -Echocardiogram completed 07/26/20 revealed a moderately impaired ejection fraction between 40 and 45% with moderate aortic stenosis and severe pulmonary hypertension. -Patient was found to have bilateral diffuse coarse crackles upon assessment this morning with new onset JVD and a CXR was completed revealing worsening CHF exacerbation. -Patient given one-time dose of Lasix 40 mg IVP and we will repeat a second dose tonight and reassess in the a.m.. -We will continue to monitor I's and O's closely along with daily electrolytes. Acute blood loss anemia, improved -Preoperative hemoglobin 11.7 and has trended down daily. Patient was found yesterday to have acute blood loss anemia with hemoglobin of 6.1 and received transfusion of 1 unit PRBCs with posttransfusion hemoglobin of 9.3 and repeat to day of 8.6. -Coumadin was held secondary to decreasing hemoglobin and need for transfusion. -We will continue to monitor H&H closely. Hypokalemia -Hypokalemia likely secondary to diuresis with Lasix -Potassium 3.2. -Replaced. We will reassess with a.m. labs. History of atrial fibrillation and mitral valve replacement on Coumadin -INR subtherapeutic at 1.85. -Continue anticoagulation with Coumadin, pharmacy to dose. Hypertension -Monitor vital signs and continue metoprolol. Hyperlipidemia -Continue daily medication regimen with atorvastatin. Hypothyroidism -Continue daily medication regimen with levothyroxine 25 g GERD -Continue daily medication regimen with Protonix. CODE STATUS: Full code DVT prophylaxis: Coumadin. Discussed with: Patient and RN Anticipated discharge date: Pending clinical course Anticipated discharge place: home A total of 45 minutes was spent on the care of this complex patient more than 50% of the time was spent in counseling and care coordination. Objective - Vital Signs Vital signs: Vital Signs Temp 97.9 F 08/01/20 12:27 Pulse 70 08/01/20 12:27 Resp 16 08/01/20 12:27 BP 145/72 08/01/20 12:27 Pulse Ox 93 L 08/01/20 12:27 Intake & Output 07/31/20 08/01/20 08/01/20 18:59 06:59 18:59 Weight 61.235 kg Other: Voiding Method Toilet Toilet Diaper Diaper # Voids 3 - Labs CBC & Chem 7: 08/01/20 05:32 08/01/20 05:32 Labs: Abnormal Lab Results - Last 24 Hours (Table) 07/31/20 07/31/20 08/01/20 Range/Units 16:24 20:36 02:24 WBC (4.50-10.00) X 10*3/uL RBC (4.10-5.20) X 10*6/uL Hgb (12.0-15.0) g/dL Hct (37.2-46.3) % MCH (27.0-32.0) pg MCHC (32.0-37.0) g/dL RDW (11.5-14.5) % Absolute Nucleated RBC (0.00-0.00) X 10*3/uL Immature Gran # (0.00-0.04) X 10*3/uL Neutrophils # (1.80-7.70) X 10*3/uL Lymphocytes # (0.90-5.00) X 10*3/uL NRBC/100 WBC Diff (0.0-0.0) /100 WBCS PT (9.9-11.9) sec INR (0.90-1.11) Sodium (135-145) mmol/L Potassium (3.5-5.5) mmol/L Carbon Dioxide (21.6-31.8) mmol/L BUN/Creatinine Ratio (12.00-20.00) Ratio Glucose (70-110) mg/dL POC Glucose (mg/dL) 154 H 149 H 134 H (75-99) mg/dL Calcium (8.7-10.3) mg/dL 08/01/20 08/01/20 08/01/20 Range/Units 05:32 05:32 05:32 WBC 10.20 H (4.50-10.00) X 10*3/uL RBC 3.43 L (4.10-5.20) X 10*6/uL Hgb 8.9 L (12.0-15.0) g/dL Hct 30.5 L (37.2-46.3) % MCH 25.9 L (27.0-32.0) pg MCHC 29.2 L (32.0-37.0) g/dL RDW 18.2 H (11.5-14.5) % Absolute Nucleated RBC 0.04 H (0.00-0.00) X 10*3/uL Immature Gran # 0.05 H (0.00-0.04) X 10*3/uL Neutrophils # 8.36 H (1.80-7.70) X 10*3/uL Lymphocytes # 0.65 L (0.90-5.00) X 10*3/uL NRBC/100 WBC Diff 0.4 H (0.0-0.0) /100 WBCS PT 19.4 H (9.9-11.9) sec INR 1.85 H (0.90-1.11) Sodium 146 H (135-145) mmol/L Potassium 3.2 L (3.5-5.5) mmol/L Carbon Dioxide 32.4 H (21.6-31.8) mmol/L BUN/Creatinine Ratio 21.25 H (12.00-20.00) Ratio Glucose 115 H (70-110) mg/dL POC Glucose (mg/dL) (75-99) mg/dL Calcium 8.1 L (8.7-10.3) mg/dL 08/01/20 08/01/20 Range/Units 07:03 11:38 WBC (4.50-10.00) X 10*3/uL RBC (4.10-5.20) X 10*6/uL Hgb (12.0-15.0) g/dL Hct (37.2-46.3) % MCH (27.0-32.0) pg MCHC (32.0-37.0) g/dL RDW (11.5-14.5) % Absolute Nucleated RBC (0.00-0.00) X 10*3/uL Immature Gran # (0.00-0.04) X 10*3/uL Neutrophils # (1.80-7.70) X 10*3/uL Lymphocytes # (0.90-5.00) X 10*3/uL NRBC/100 WBC Diff (0.0-0.0) /100 WBCS PT (9.9-11.9) sec INR (0.90-1.11) Sodium (135-145) mmol/L Potassium (3.5-5.5) mmol/L Carbon Dioxide (21.6-31.8) mmol/L BUN/Creatinine Ratio (12.00-20.00) Ratio Glucose (70-110) mg/dL POC Glucose (mg/dL) 143 H 154 H (75-99) mg/dL Calcium (8.7-10.3) mg/dL <Salima Barbour - Last Filed: 08/01/20 17:00> Subjective Patient seen and examined independently. Patient was also seen by Solomon Thomas NP and case was discussed. I am in agreement with subjective, physical exam, assessment and plan as written above and amended below. Patient seen and examined at bedside. Denies any chest pain, still feeling short of breath, still a slight cough, still having some belly pain. Tolerating her diet well. General: non toxic, no distress, appears at stated age Derm: warm, dry Head: atraumatic, normocephalic, symmetric Eyes: EOMI, no lid lag, anicteric sclera Mouth: no lip lesion, mucus membranes moist Cardiovascular: S1S2 reg, no murmur, positive posterior tibial pulse bilateral, Lungs: ronchi bilateral , no accessory muscle use Abdominal: soft, + tender to palpation diffusley, no guarding, no appreciable organomegaly Psych: Alert, oriented, appropriate affect Objective - Vital Signs Vital signs: Vital Signs Temp 97.9 F 08/01/20 12:27 Pulse 73 08/01/20 16:27 Resp 16 08/01/20 12:27 BP 145/72 08/01/20 12:27 Pulse Ox 93 L 08/01/20 12:27 Intake & Output 07/31/20 08/01/20 08/01/20 18:59 06:59 18:59 Weight 61.235 kg Other: Voiding Method Toilet Toilet Diaper Diaper # Voids 3 - Labs CBC & Chem 7: 08/01/20 05:32 08/01/20 05:32 Labs: Abnormal Lab Results - Last 24 Hours (Table) 07/31/20 08/01/20 08/01/20 Range/Units 20:36 02:24 05:32 WBC (4.50-10.00) X 10*3/uL RBC (4.10-5.20) X 10*6/uL Hgb (12.0-15.0) g/dL Hct (37.2-46.3) % MCH (27.0-32.0) pg MCHC (32.0-37.0) g/dL RDW (11.5-14.5) % Absolute Nucleated RBC (0.00-0.00) X 10*3/uL Immature Gran # (0.00-0.04) X 10*3/uL Neutrophils # (1.80-7.70) X 10*3/uL Lymphocytes # (0.90-5.00) X 10*3/uL NRBC/100 WBC Diff (0.0-0.0) /100 WBCS PT 19.4 H (9.9-11.9) sec INR 1.85 H (0.90-1.11) Sodium (135-145) mmol/L Potassium (3.5-5.5) mmol/L Carbon Dioxide (21.6-31.8) mmol/L BUN/Creatinine Ratio (12.00-20.00) Ratio Glucose (70-110) mg/dL POC Glucose (mg/dL) 149 H 134 H (75-99) mg/dL Calcium (8.7-10.3) mg/dL 08/01/20 08/01/20 08/01/20 Range/Units 05:32 05:32 07:03 WBC 10.20 H (4.50-10.00) X 10*3/uL RBC 3.43 L (4.10-5.20) X 10*6/uL Hgb 8.9 L (12.0-15.0) g/dL Hct 30.5 L (37.2-46.3) % MCH 25.9 L (27.0-32.0) pg MCHC 29.2 L (32.0-37.0) g/dL RDW 18.2 H (11.5-14.5) % Absolute Nucleated RBC 0.04 H (0.00-0.00) X 10*3/uL Immature Gran # 0.05 H (0.00-0.04) X 10*3/uL Neutrophils # 8.36 H (1.80-7.70) X 10*3/uL Lymphocytes # 0.65 L (0.90-5.00) X 10*3/uL NRBC/100 WBC Diff 0.4 H (0.0-0.0) /100 WBCS PT (9.9-11.9) sec INR (0.90-1.11) Sodium 146 H (135-145) mmol/L Potassium 3.2 L (3.5-5.5) mmol/L Carbon Dioxide 32.4 H (21.6-31.8) mmol/L BUN/Creatinine Ratio 21.25 H (12.00-20.00) Ratio Glucose 115 H (70-110) mg/dL POC Glucose (mg/dL) 143 H (75-99) mg/dL Calcium 8.1 L (8.7-10.3) mg/dL 08/01/20 08/01/20 Range/Units 11:38 16:41 WBC (4.50-10.00) X 10*3/uL RBC (4.10-5.20) X 10*6/uL Hgb (12.0-15.0) g/dL Hct (37.2-46.3) % MCH (27.0-32.0) pg MCHC (32.0-37.0) g/dL RDW (11.5-14.5) % Absolute Nucleated RBC (0.00-0.00) X 10*3/uL Immature Gran # (0.00-0.04) X 10*3/uL Neutrophils # (1.80-7.70) X 10*3/uL Lymphocytes # (0.90-5.00) X 10*3/uL NRBC/100 WBC Diff (0.0-0.0) /100 WBCS PT (9.9-11.9) sec INR (0.90-1.11) Sodium (135-145) mmol/L Potassium (3.5-5.5) mmol/L Carbon Dioxide (21.6-31.8) mmol/L BUN/Creatinine Ratio (12.00-20.00) Ratio Glucose (70-110) mg/dL POC Glucose (mg/dL) 154 H 104 H (75-99) mg/dL Calcium (8.7-10.3) mg/dL
[2020-08-01 16:42] LABS: Glucose,Whole Blood 104 mg/dL (75-99)
[2020-08-01] MEDS ORDERED: WARFARIN 2.5 MG TAB PO ONE (18:00)
[2020-08-01 20:44] LABS: Glucose,Whole Blood 143 mg/dL (75-99)
[2020-08-01] MEDS: LEVOTHYROXINE 25 MCG TAB PO SCH (21:05)
[2020-08-01] MEDS: ATORVASTATIN 10 MG TAB PO SCH (21:05)
[2020-08-02 02:23] LABS: Glucose,Whole Blood 131 mg/dL (75-99)
[2020-08-02 07:04] LABS: Glucose,Whole Blood 130 mg/dL (75-99)
[2020-08-02] MEDS: IPRATROPIUM-ALBUTEROL 3 ML NEB INHALATION PRN ×4 (07:34→19:51)
[2020-08-02] MEDS: SYMBICORT 160-4.5 MCG INHALER INHALATION PRN ×2 (07:34→19:51)
[2020-08-02] MEDS: METOPROLOL SUCCINATE (ER) 50 MG TAB.ER.24H PO SCH ×3 (07:42→20:04)
[2020-08-02] MEDS: ASPIRIN 81 MG PO SCH (07:43)
[2020-08-02] MEDS: TORSEMIDE 20 MG TAB PO SCH (07:43)
[2020-08-02] MEDS: FAMOTIDINE 20 MG/2 ML VIAL IV SCH (07:44)
[2020-08-02] MEDS: ACETAMINOPHEN TAB 325 MG TAB PO PRN ×2 (07:44→15:05)
[2020-08-02] MEDS: GABAPENTIN 100 MG CAP PO SCH ×3 (07:45→20:04)
[2020-08-02] MEDS ORDERED: BUMETANIDE 0.25 MG/ML 4 ML VIAL IVP STA (08:39)
[2020-08-02] MEDS ORDERED: BUMETANIDE 0.25 MG/ML 4 ML VIAL IVP SCH (09:00)
--- NOTE | 2020-08-02 09:32 | XR ---
EXAMINATION TYPE: XR chest 1V portable DATE OF EXAM: 08/02/2020 HISTORY: Shortness of breath. COMPARISON: 07/31/2020 TECHNIQUE: Single view of the chest is submitted. FINDINGS: Demonstrated are scattered senescent parenchymal change. Patchy basilar densities persist with small effusions. Pulmonary venous congestion without overt fail ure. The heart is stable. Hilar and mediastinal structures are within normal limits. Degenerative changes are seen of the dorsal spine. IMPRESSION: 1. Patchy basilar densities persist with small effusions. Pulmonary venous congestion without overt failure.
[2020-08-02 10:23] LABS: Anisocytosis Slight; Basophils % (A) 0 %; Eosinophils # (A) 0.2 k/uL (0-0.7); Eosinophils % (A) 2 %; HCT 31.1 % (34.0-46.0); HGB 9.7 gm/dL (11.4-16.0); Hypochromasia Marked; Lymphocytes # (A) 0.6 k/uL (1.0-4.8); Lymphocytes % (A) 6 %; MCH 27.2 pg (25.0-35.0); MCHC 31.4 g/dL (31.0-37.0); MCV 86.9 fL (80.0-100.0); Mean Platelet Volume 8.1; Monocytes # (A) 0.8 k/uL (0-1.0); Monocytes % (A) 8 %; Neutrophils # (A) 7.9 k/uL (1.3-7.7); Neutrophils % (A) 82 %; Platelet Count 234 k/uL (150-450); Poikilocytosis Slight; RBC 3.58 m/uL (3.80-5.40); RDW 17.7 % (11.5-15.5); WBC 9.6 k/uL (3.8-10.6)
[2020-08-02 10:28] LABS: African American GFR (CKD) 86 (>60 ml/min/1.73 sqM); Anion Gap 7 mmol/L; Blood Urea Nitrogen 13 mg/dL (7-17); Calcium 8.2 mg/dL (8.4-10.2); Carbon Dioxide 36 mmol/L (22-30); Chloride 97 mmol/L (98-107); Glucose 119 mg/dL (74-99); Magnesium 1.8 mg/dL (1.6-2.3); Non-African American GFR(CKD) 75 (>60 ml/min/1.73 sqM); Potassium 3.4 mmol/L (3.5-5.1); Sodium 140 mmol/L (137-145)
[2020-08-02 11:33] LABS: Glucose,Whole Blood 160 mg/dL (75-99)
[2020-08-02 11:49] LABS: INR 1.9 (0.90-1.11); Prothrombin Time 19.9 sec (9.9-11.9)
[2020-08-02] MEDS ORDERED: POTASSIUM BICARBONATE/CIT AC 20 MEQ TABLET.EFF PO ONE (13:18)
--- NOTE | 2020-08-02 13:29 | P.PN ---
<Solomon Thomas - Last Filed: 08/02/20 13:27> Subjective Progress Note Date: 08/02/20 Principal diagnosis: Partial small bowel obstruction with concerns for underlying infectious process such as enteritis Hospital Course: Patient is an 84-year-old female with a past medical history including CAD with pacemaker/defibrillator placement, mitral valve replacement on Coumadin, chronic diastolic heart failure, severe pulmonary hypertension, hypertension, hyperlipidemia, hypothyroidism, neuropathy, GERD, and history of a bowel obstruction with herniation resulting in a small bowel resection. The patient presented to [facility] with a chief complaint of abdominal pain and distention and was admitted for partial bowel obstruction with concerns of underlying infectious process such as enteritis. CT scan abdomen and pelvis was completed revealing partial SBO in left mid abdomen due to adhesions from adjacent surgical change and mild ill-defined fluid and fat stranding related to lower abdomen is present making underlying infectious process or enteritis not entirely excluded. Coumadin was discontinued and patient was placed on heparin infusion to maintain anticoagulation until surgical procedure. Patient was placed on IV antibiotics: Flagyl and Rocephin, NG tube was placed to LIS for decompression and pt underwent an exploratory laparotomy with lysis of adhesions and small bowel resection on 07/27/[address] Oliver. Physical exam: Patient was seen and fully evaluated at the bedside. Vital signs reviewed and stable. Patient was lying in bed and reading a book this morning. She reports generalized abdominal pain mild surgical incision site tenderness to her abdomen worse upon coughing. Abdomen remains soft distended with hypoactive bowel sounds in all 4 quadrants. Surgical dressing to midline abdomen intact with no noted signs of active bleeding. She states that she has been able to pass gas this morning, but denies having a bowel movement since Tuesday07/30/20. She states that she has been tolerating her full liquid diet, denying any episodes of nausea or vomiting. She also reports that she has continued with increased ambulation in her room. She denies having any other complaints at this time including headache, lightheadedness, dizziness, chest pain, palpitations, shortness of breath, dyspnea with exertion, or experiencing any pain/numbness/swelling/weakness/tingling in extremities. General: non toxic, no distress, appears at stated age. Derm: warm, dry Head: atraumatic, normocephalic, symmetric Eyes: EOMI, no lid lag, anicteric sclera Mouth: no lip lesion, mucus membranes moist Cardiovascular: Murmur present. Pacemaker/defibrillator left anterior chest. Positive posterior tibial pulses bilaterally. Cap refill less than 2 seconds. JVD Present. Lungs: Respirations even, regular, and unlabored on 2L O2 via NC with SpO2 98%. Lungs diffuse coarse rhonchi bilaterally throughout all lung baca. Lungs: Respirations even, regular, and unlabored on room air. Lungs CTA bilateral, no rhonchi, no rales, no wheezing, and no accessory muscle use Abdominal: Soft distended . Hypoactive bowel sounds. Postsurgical incision site tenderness. No guarding, no appreciable organomegaly. Surgical dressing to midline abdomen intact with no noted signs of bleeding. Ext: No gross muscle atrophy, no edema, no contractures. Neuro: Speech clear, movement and sensation of upper and lower extremities intact, no focal neuro deficits Psych: Alert, oriented, appropriate affect Assessment and Plan of Care: Partial small bowel obstruction with concerns for underlying infectious process such as enteritis -07/25/20 CT revealed partial SBO in left mid abdomen due to adhesions from adjacent surgical change and mild ill-defined fluid and fat stranding related to lower abdomen is present making underlying infectious process or enteritis not entirely excluded. -Patient was placed on IV antibiotics: Flagyl and Rocephin and stopped on 07/28/20, NG tube was placed to LIS for decompression and pt underwent an exploratory laparotomy with lysis of adhesions and small bowel resection on 07/27/[address] Oliver and NG tube was removed 07/28/20. -Patient is day 6 postop. -Continue full liquid diet and advance as recommended by general surgery. -Symptomatic care and pain management with Zofran as needed for nausea/vomiting and morphine as needed for pain. Severe Pulmonary Hypertension with Acute exacerbation of Chronic Diastolic Heart Failure -Echocardiogram completed 03/25/20 revealed a preserved EF of 50-55% with moderate aortic stenosis and moderate to severe pulmonary hypertension. -Echocardiogram completed 07/26/20 revealed a moderately impaired ejection fraction between 40 and 45% with moderate aortic stenosis and severe pulmonary hypertension. -Status post blood transfusion on 07/31/20 pt was found to have bilateral diffuse coarse crackles with new onset JVD and a CXR was completed revealing worsening CHF exacerbation. Repeat CXR this morning -Patient given one-time dose of Lasix 40 mg IVP and we will repeat a second dose tonight and reassess in the a.m.. -We will continue to monitor I's and O's closely along with daily electrolytes. Acute blood loss anemia, improved -Preoperative hemoglobin 11.7 and has trended down daily. Patient was found yesterday to have acute blood loss anemia with hemoglobin of 6.1 and received transfusion of 1 unit PRBCs with posttransfusion hemoglobin of 9.3 and repeat today of 8.6. -Coumadin was held secondary to decreasing hemoglobin and need for transfusion. -We will continue to monitor H&H closely. Hypokalemia -Hypokalemia likely secondary to diuresis with Lasix -Potassium 3.4 today -Replaced. We will reassess with a.m. labs. History of atrial fibrillation and mitral valve replacement on Coumadin -INR subtherapeutic at 1.85. -Continue anticoagulation with Coumadin, pharmacy to dose. Hypertension -Monitor vital signs and continue metoprolol. Hyperlipidemia -Continue daily medication regimen with atorvastatin. Hypothyroidism -Continue daily medication regimen with levothyroxine 25 g GERD -Continue daily medication regimen with Protonix. CODE STATUS: Full code DVT prophylaxis: Coumadin. Discussed with: Patient and RN Anticipated discharge date: Pending clinical course Anticipated discharge place: home A total of 45 minutes was spent on the care of this complex patient more than 5 0% of the time was spent in counseling and care coordination. Objective - Vital Signs Vital signs: Vital Signs Temp 98.3 F 08/02/20 07:47 Pulse 71 08/02/20 07:47 Resp 20 08/02/20 07:47 BP 165/79 08/02/20 07:47 Pulse Ox 98 08/02/20 07:47 Intake & Output 08/01/20 08/02/20 08/02/20 18:59 06:59 18:59 Intake Total 240 Balance 240 Intake: Oral 240 Other: Voiding Method Toilet Toilet Diaper Diaper # Voids 1 - Labs CBC & Chem 7: 08/02/20 06:20 08/02/20 06:20 Labs: Abnormal Lab Results - Last 24 Hours (Table) 08/01/20 08/01/20 08/01/20 Range/Units 05:32 05:32 05:32 WBC 10.20 H (4.50-10.00) X 10*3/uL RBC 3.43 L (4.10-5.20) X 10*6/uL Hgb 8.9 L (12.0-15.0) g/dL Hct 30.5 L (37.2-46.3) % MCH 25.9 L (27.0-32.0) pg MCHC 29.2 L (32.0-37.0) g/dL RDW 18.2 H (11.5-14.5) % Absolute Nucleated RBC 0.04 H (0.00-0.00) X 10*3/uL Immature Gran # 0.05 H (0.00-0.04) X 10*3/uL Neutrophils # 8.36 H (1.80-7.70) X 10*3/uL Lymphocytes # 0.65 L (0.90-5.00) X 10*3/uL NRBC/100 WBC Diff 0.4 H (0.0-0.0) /100 WBCS PT 19.4 H (9.9-11.9) sec INR 1.85 H (0.90-1.11) Sodium 146 H (135-145) mmol/L Potassium 3.2 L (3.5-5.5) mmol/L Carbon Dioxide 32.4 H (21.6-31.8) mmol/L BUN/Creatinine Ratio 21.25 H (12.00-20.00) Ratio Glucose 115 H (70-110) mg/dL POC Glucose (mg/dL) (75-99) mg/dL Calcium 8.1 L (8.7-10.3) mg/dL 08/01/20 08/01/20 08/01/20 Range/Units 11:38 16:41 20:43 WBC (4.50-10.00) X 10*3/uL RBC (4.10-5.20) X 10*6/uL Hgb (12.0-15.0) g/dL Hct (37.2-46.3) % MCH (27.0-32.0) pg MCHC (32.0-37.0) g/dL RDW (11.5-14.5) % Absolute Nucleated RBC (0.00-0.00) X 10*3/uL Immature Gran # (0.00-0.04) X 10*3/uL Neutrophils # (1.80-7.70) X 10*3/uL Lymphocytes # (0.90-5.00) X 10*3/uL NRBC/100 WBC Diff (0.0-0.0) /100 WBCS PT (9.9-11.9) sec INR (0.90-1.11) Sodium (135-145) mmol/L Potassium (3.5-5.5) mmol/L Carbon Dioxide (21.6-31.8) mmol/L BUN/Creatinine Ratio (12.00-20.00) Ratio Glucose (70-110) mg/dL POC Glucose (mg/dL) 154 H 104 H 143 H (75-99) mg/dL Calcium (8.7-10.3) mg/dL 08/02/20 08/02/20 Range/Units 02:21 07:02 WBC (4.50-10.00) X 10*3/uL RBC (4.10-5.20) X 10*6/uL Hgb (12.0-15.0) g/dL Hct (37.2-46.3) % MCH (27.0-32.0) pg MCHC (32.0-37.0) g/dL RDW (11.5-14.5) % Absolute Nucleated RBC (0.00-0.00) X 10*3/uL Immature Gran # (0.00-0.04) X 10*3/uL Neutrophils # (1.80-7.70) X 10*3/uL Lymphocytes # (0.90-5.00) X 10*3/uL NRBC/100 WBC Diff (0.0-0.0) /100 WBCS PT (9.9-11.9) sec INR (0.90-1.11) Sodium (135-145) mmol/L Potassium (3.5-5.5) mmol/L Carbon Dioxide (21.6-31.8) mmol/L BUN/Creatinine Ratio (12.00-20.00) Ratio Glucose (70-110) mg/dL POC Glucose (mg/dL) 131 H 130 H (75-99) mg/dL Calcium (8.7-10.3) mg/dL <Saliam Barbour A - Last Filed: 08/02/20 13:58> Subjective Patient seen and examined independently. Patient was also seen by Solomon Thomas NP and case was discussed. I am in agreement with subjective, physical exam, assessment and plan as written above and amended below. Patient seen and examined at bedside. She is still not feeling great. She does have some shortness of breath. She is also complaining of right sided abdominal pain that is worse with taking a deep breath and coughing. She denies any worsening of the pain at her midline incision. No chest pain. General: ill appearing, no distress, appears at stated age Derm: warm, dry Head: atraumatic, normocephalic, symmetric Eyes: EOMI, no lid lag, anicteric sclera Mouth: no lip lesion, mucus membranes moist Cardiovascular: S1-S2 with grade 3 systolic ejection murmur, positive posterior tibial pulse bilateral, Lungs: Rhonchi bilateral, no accessory muscle use Abdominal: soft, nontender to palpation, no guarding, no appreciable organomegaly Ext: no gross muscle atrophy, no edema, no contractures Psych: Alert, oriented, appropriate affect Acute exacerbation of diastolic congestive heart failure with ejection fraction 40-45% - Transition from Lasix IV and oral torsemide to IV Bumex -Follow output and signs of clinical improvement -Check chest x-ray, COVID swab negative Objective - Vital Signs Vital signs: Vital Signs Temp 98.3 F 08/02/20 07:47 Pulse 72 08/02/20 11:37 Resp 20 08/02/20 07:47 BP 165/79 08/02/20 07:47 Pulse Ox 98 08/02/20 07:47 Intake & Output 08/01/20 08/02/20 08/02/20 18:59 06:59 18:59 Intake Total 240 Output Total 1050 Balance 240 -1050 Intake: Oral 240 Output: Urine 1050 Other: Voiding Method Toilet Toilet Toilet Diaper Diaper Diaper # Voids 1 2 - Labs CBC & Chem 7: 08/02/20 06:20 08/02/20 06:20 Labs: Abnormal Lab Results - Last 24 Hours (Table) 08/01/20 08/01/20 08/02/20 Range/Units 16:41 20:43 02: RBC (3.80-5.40) m/uL Hgb (11.4-16.0) gm/dL Hct (34.0-46.0) % RDW (11.5-15.5) % Neutrophils # (1.3-7.7) k/uL Lymphocytes # (1.0-4.8) k/uL PT (9.9-11.9) sec INR (0.90-1.11) Potassium (3.5-5.1) mmol/L Chloride (98-107) mmol/L Carbon Dioxide (22-30) mmol/L Glucose (74-99) mg/dL POC Glucose (mg/dL) 104 H 143 H 131 H (75-99) mg/dL Calcium (8.4-10.2) mg/dL 08/02/20 08/02/20 08/02/20 Range/Units 06:20 06:20 06:20 RBC 3.58 L (3.80-5.40) m/uL Hgb 9.7 L (11.4-16.0) gm/dL Hct 31.1 L (34.0-46.0) % RDW 17.7 H (11.5-15.5) % Neutrophils # 7.9 H (1.3-7.7) k/uL Lymphocytes # 0.6 L (1.0-4.8) k/uL PT 19.9 H (9.9-11.9) sec INR 1.90 H (0.90-1.11) Potassium 3.4 L (3.5-5.1) mmol/L Chloride 97 L (98-107) mmol/L Carbon Dioxide 36 H (22-30) mmol/L Glucose 119 H (74-99) mg/dL POC Glucose (mg/dL) (75-99) mg/dL Calcium 8.2 L (8.4-10.2) mg/dL 08/02/20 08/02/20 Range/Units 07:02 11:31 RBC (3.80-5.40) m/uL Hgb (11.4-16.0) gm/dL Hct (34.0-46.0) % RDW (11.5-15.5) % Neutrophils # (1.3-7.7) k/uL Lymphocytes # (1.0-4.8) k/uL PT (9.9-11.9) sec INR (0.90-1.11) Potassium (3.5-5.1) mmol/L Chloride (98-107) mmol/L Carbon Dioxide (22-30) mmol/L Glucose (74-99) mg/dL POC Glucose (mg/dL) 130 H 160 H (75-99) mg/dL Calcium (8.4-10.2) mg/dL
--- NOTE | 2020-08-02 14:54 | P.PN ---
Subjective Progress Note Date: 08/02/20 CHIEF COMPLAINT: Small bowel obstruction HISTORY OF PRESENT ILLNESS: The patient is a 84-year-old female status post lysis of adhesions small bowel resection 07/27/2020. She is having bowel movements and passing flatus. She is tolerating liquids and diet. She has cough. Her pain is well controlled. She has not had a binder. ROS: No fevers or chills. PHYSICAL EXAM: VITAL SIGNS: Reviewed CONSTITUTIONAL: Well developed and in no acute distress. EYES: Conjuctivae without sclera icterus. Extraocular movements grossly intact. HEAD, EARS, NOSE, THROAT: Moist buccal mucosa. Head is atraumatic, normocephalic. Hears conversational speech. No nasal drainage. NECK: Supple. No thyroidomegaly. RESPIRATORY: Non-labored respirations and equal bilateral excursions. CARDIOVASCULAR: Palpable 2+ radial pulses. ABDOMEN: Incisions clean dry and intact. Soft. No peritonitis. MUSCULOSKELETAL: No gross deformity of the lower extremities noted. No clubbing. No cyanosis. SKIN: Good skin turgor. Well perfused. NEUROLOGIC: Cranial nerves II through XII grossly intact. No focal or lateral izing signs. PSYCH: Appropriate affect. Alert and oriented to person, place and time. CLINICAL LABS: White blood cell count normal at 9.6. Hemoglobin of 8.9-9.7. Creatinine normal 0.74. ASSESSMENT: 1. Small bowel obstruction due to adhesions PLAN: 1. Will order abdominal binder. 2. Management of cough per medicine. Objective - Vital Signs Vital signs: Vital Signs Temp 98.3 F 08/02/20 07:47 Pulse 71 08/02/20 07:47 Resp 20 08/02/20 07:47 BP 165/79 08/02/20 07:47 Pulse Ox 98 08/02/20 07:47 Intake & Output 08/01/20 08/02/20 08/02/20 18:59 06:59 18:59 Intake Total 240 Balance 240 Intake: Oral 240 Other: Voiding Method Toilet Toilet Toilet Diaper Diaper Diaper # Voids 1 - Labs CBC & Chem 7: 08/02/20 06:20 08/02/20 06:20 Labs: Abnormal Lab Results - Last 24 Hours (Table) 08/01/20 08/01/20 08/01/20 Range/Units 11:38 16:41 20:43 RBC (3.80-5.40) m/uL Hgb (11.4-16.0) gm/dL Hct (34.0-46.0) % RDW (11.5-15.5) % Neutrophils # (1.3-7.7) k/uL Lymphocytes # (1.0-4.8) k/uL Potassium (3.5-5.1) mmol/L Chloride (98-107) mmol/L Carbon Dioxide (22-30) mmol/L Glucose (74-99) mg/dL POC Glucose (mg/dL) 154 H 104 H 143 H (75-99) mg/dL Calcium (8.4-10.2) mg/dL 08/02/20 08/02/20 08/02/20 Range/Units 02:21 06:20 06:20 RBC 3.58 L (3.80-5.40) m/uL Hgb 9.7 L (11.4-16.0) gm/dL Hct 31.1 L (34.0-46.0) % RDW 17.7 H (11.5-15.5) % Neutrophils # 7.9 H (1.3-7.7) k/uL Lymphocytes # 0.6 L (1.0-4.8) k/uL Potassium 3.4 L (3.5-5.1) mmol/L Chloride 97 L (98-107) mmol/L Carbon Dioxide 36 H (22-30) mmol/L Glucose 119 H (74-99) mg/dL POC Glucose (mg/dL) 131 H (75-99) mg/dL Calcium 8.2 L (8.4-10.2) mg/dL 08/02/20 Range/Units 07:02 RBC (3.80-5.40) m/uL Hgb (11.4-16.0) gm/dL Hct (34.0-46.0) % RDW (11.5-15.5) % Neutrophils # (1.3-7.7) k/uL Lymphocytes # (1.0-4.8) k/uL Potassium (3.5-5.1) mmol/L Chloride (98-107) mmol/L Carbon Dioxide (22-30) mmol/L Glucose (74-99) mg/dL POC Glucose (mg/dL) 130 H (75-99) mg/dL Calcium (8.4-10.2) mg/dL
[2020-08-02] MEDS: guaiFENesin 600 MG TABLET.ER PO SCH ×2 (15:06→20:04)
[2020-08-02 16:51] LABS: Glucose,Whole Blood 126 mg/dL (75-99)
[2020-08-02] MEDS ORDERED: WARFARIN 3 MG TAB PO ONE (18:00)
[2020-08-02] MEDS: ATORVASTATIN 10 MG TAB PO SCH (20:04)
[2020-08-02] MEDS: HYDROcodone/APAP 5-325MG 1 EACH TAB PO PRN (20:04)
[2020-08-02] MEDS: LEVOTHYROXINE 25 MCG TAB PO SCH (20:04)
[2020-08-02 20:27] LABS: Glucose,Whole Blood 123 mg/dL (75-99)
[2020-08-03] MEDS: HYDROcodone/APAP 5-325MG 1 EACH TAB PO PRN ×2 (00:12→20:43)
[2020-08-03 02:00] LABS: Glucose,Whole Blood 115 mg/dL (75-99)
[2020-08-03 06:41] LABS: Glucose,Whole Blood 105 mg/dL (75-99)
[2020-08-03] MEDS: ACETAMINOPHEN TAB 325 MG TAB PO PRN (07:32)
[2020-08-03] MEDS: METOPROLOL SUCCINATE (ER) 50 MG TAB.ER.24H PO SCH ×3 (07:34→20:37)
[2020-08-03] MEDS: ASPIRIN 81 MG PO SCH (07:34)
[2020-08-03] MEDS: guaiFENesin 600 MG TABLET.ER PO SCH ×2 (07:34→20:38)
[2020-08-03] MEDS: FAMOTIDINE 20 MG/2 ML VIAL IV SCH (07:35)
[2020-08-03] MEDS: GABAPENTIN 100 MG CAP PO SCH ×3 (07:35→20:37)
[2020-08-03] MEDS ORDERED: BUMETANIDE 0.25 MG/ML 4 ML VIAL IVP STA (10:27)
[2020-08-03 10:34] LABS: HCT 34.2 % (37.2-46.3); MCH 26.2 pg (27.0-32.0); MCHC 29.2 g/dL (32.0-37.0); MCV 89.5 fL (80.0-97.0); Mean Platelet Volume 10.6 fL (9.5-12.2); Platelet Count 294 X 10*3/uL (140-440); RBC 3.82 X 10*6/uL (4.10-5.20); RDW 18.5 % (11.5-14.5); WBC 10.15 X 10*3/uL (4.50-10.00)
[2020-08-03 10:57] LABS: INR 2.13 (0.90-1.11); Prothrombin Time 22.1 sec (9.9-11.9)
[2020-08-03 11:08] LABS: African American GFR (CKD) 91.6 (60.0-200.0); BUN/Creat Ratio 15.71 Ratio (12.00-20.00); Calcium 8.2 mg/dL (8.7-10.3); Magnesium 1.9 mg/dL (1.5-2.4); Potassium 3.7 mmol/L (3.5-5.5)
--- NOTE | 2020-08-03 11:10 | P.PN ---
<Solomon Thomas - Last Filed: 08/03/20 13:24> Subjective Progress Note Date: 08/03/20 Principal diagnosis: Partial small bowel obstruction with concerns for underlying infectious process such as enteritis Hospital Course: Patient is an 84-year-old female with a past medical history including CAD with pacemaker/defibrillator placement, mitral valve replacement on Coumadin, chronic diastolic heart failure, severe pulmonary hypertension, hypertension, hyperlipidemia, hypothyroidism, neuropathy, GERD, and history of a bowel obstruction with herniation resulting in a small bowel resection. The patient presented to [facility] with a chief complaint of abdominal pain and distention and was admitted for partial bowel obstruction with concerns of underlying infectious process such as enteritis. CT scan abdomen and pelvis was completed revealing partial SBO in left mid abdomen due to adhesions from adjacent surgical change and mild ill-defined fluid and fat stranding related to lower abdomen is present making underlying infectious process or enteritis not entirely excluded. Patient was placed on IV antibiotics: Flagyl and Rocephin, NG tube was placed to LIS for decompression and pt underwent an exploratory laparotomy with lysis of adhesions and small bowel resection on 07/27/[address] Oliver. Postsurgically, patient was found to have hypovolemia with hemoglobin of 6.4. Patient received 1 unit packed RBCs stabilizing hemoglobin levels. Patient did develop an acute exacerbation of chronic diastolic heart failure requiring some IV diuresis. Physical exam: Patient was seen and fully evaluated this morning. She was walking in halls with her walker and is doing quite well. She reports pain to her right lower ribs with coughing, but denies pain upon palpation. Since receiving one dose of bumex pt has had significant improvement in lung sounds and had a urinary output of 3500 mL over the past 24 hours. We will administer one additional dose of Bumex and this should be all patient requires and then we will plan to resume home Torsemide. CBC revealing continued improvement in hemoglobin now up to 10.0. BMP and magnesium unremarkable. INR therapeutic at 2.13. Vital signs reviewed and stable. Patient reports having another small bowel movement yesterday afternoon (for a total of 2 bowel movements since surgical procedure) and that she continues to pass flatus. Surgical dressing to midline abdomen remains intact with no noted signs of active bleeding. Patient continues to tolerate her full liquid diet, denies any episodes of nausea or vomiting any denies having any other complaints at this time including headache, lightheadedness, dizziness, chest pain, palpitations, shortness of breath, dyspnea with exertion, or experiencing any pain/numbness/swelling/weakness/tingling in extremities. General: non toxic, no distress, appears at stated age. Derm: warm, dry Head: atraumatic, normocephalic, symmetric Eyes: EOMI, no lid lag, anicteric sclera Mouth: no lip lesion, mucus membranes moist Cardiovascular: Murmur present. Pacemaker/defibrillator left anterior chest. Positive posterior tibial pulses bilaterally. Cap refill less than 2 seconds. JVD Present. Lungs: Respirations even, regular, and unlabored on 2L O2 via NC with SpO2 98%. Diffuse soft crackles bilaterally, much improved from yesterday's examination. Abdominal: Soft distended . Hypoactive bowel sounds. Postsurgical incision site tenderness. No guarding, no appreciable organomegaly. Surgical dressing to midline abdomen intact with no noted signs of bleeding. Ext: No gross muscle atrophy, no edema, no contractures. Neuro: Speech clear, movement and sensation of upper and lower extremities intac t, no focal neuro deficits Psych: Alert, oriented, appropriate affect Assessment and Plan of Care: Partial small bowel obstruction with concerns for underlying infectious process such as enteritis -07/25/20 CT revealed partial SBO in left mid abdomen due to adhesions from adjacent surgical change and mild ill-defined fluid and fat stranding related to lower abdomen is present making underlying infectious process or enteritis not entirely excluded. -Patient was placed on IV antibiotics: Flagyl and Rocephin and stopped on 07/28/20, NG tube was placed to LIS for decompression and pt underwent an exploratory laparotomy with lysis of adhesions and small bowel resection on 07/27/[address] Oliver and NG tube was removed 07/28/20. -Patient is day 7 postop. -Continue full liquid diet and advance diet as recommended by general surgery. -Symptomatic care and pain management with Zofran as needed for nausea/vomiting and morphine as needed for pain. -Continue close monitoring of I's and O's Severe Pulmonary Hypertension with Acute exacerbation of Chronic Diastolic Heart Failure -Echocardiogram completed 03/25/20 revealed a preserved EF of 50-55% with moderate aortic stenosis and moderate to severe pulmonary hypertension. -Echocardiogram completed 07/26/20 revealed a moderately impaired ejection fraction between 40 and 45% with moderate aortic stenosis and severe pulmonary hypertension. -Status post blood transfusion on 07/31/20 pt was found to have bilateral diffuse coarse crackles with new onset JVD and a CXR was completed revealing worsening CHF exacerbation. Repeat CXR this morning -Patient given one-time dose of Bumex yesterday. Since receiving one dose of bumex pt has had significant improvement in lung sounds and had a documented urinary output of 3500 mL over the past 24 hours. We will administer one additional dose of Bumex and this should be all patient requires and then we will plan to resume home Torsemide. -We will continue to monitor I's and O's closely along with daily electrolytes. Acute blood loss anemia, improved -Preoperative hemoglobin 11.7 and has trended down daily. Patient was found yesterday to have acute blood loss anemia with hemoglobin of 6.1 and received transfusion of 1 unit PRBCs with posttransfusion hemoglobin of 9.3 and repeat today of 8.6. -Coumadin was held secondary to decreasing hemoglobin and need for transfusion. -We will continue to monitor H&H closely. Hypokalemia, resolved History of atrial fibrillation and mitral valve replacement on Coumadin -INR therapeutic at 2.13. -Continue anticoagulation with Coumadin, pharmacy to dose. Hypertension -Monitor vital signs and continue metoprolol. Hyperlipidemia -Continue daily medication regimen with atorvastatin. Hypothyroidism -Continue daily medication regimen with levothyroxine 25 g GERD -Continue daily medication regimen with Protonix. CODE STATUS: Full code DVT prophylaxis: Coumadin. Discussed with: Patient and RN. Also called and updated patient's daughter Tabatha. Anticipated discharge date: Pending clinical course and general surgery recommendations, likely 1-[address]: Home, patient's daughter Tabatha plans to be caregiver. A total of 45 minutes was spent on the care of this complex patient more than 50% of the time was spent in counseling and care coordination. Objective - Vital Signs Vital signs: Vital Signs Temp 98.2 F 08/03/20 07:49 Pulse 75 08/03/20 07:49 Resp 18 08/03/20 07:49 BP 161/81 08/03/20 07:49 Pulse Ox 96 08/03/20 07:49 Intake & Output 08/02/20 08/03/20 08/03/20 18:59 06:59 18:59 Intake Total 1080 550 Output Total 3500 400 Balance -2420 550 -400 Weight 63.5 kg Intake: Oral 1080 550 Output: Urine 3500 400 Other: Voiding Method Toilet Toilet Toilet Diaper Diaper Diaper # Voids 6 450 # Bowel Movements 1 - Labs CBC & Chem 7: 08/03/20 06:20 08/03/20 06:20 Labs: Abnormal Lab Results - Last 24 Hours (Table) 08/02/20 08/02/20 08/02/20 Range/Units 06:20 06:20 11:31 PT 19.9 H (9.9-11.9) sec INR 1.90 H (0.90-1.11) Potassium 3.4 L (3.5-5.1) mmol/L Chloride 97 L (98-107) mmol/L Carbon Dioxide 36 H (22-30) mmol/L Glucose 119 H (74-99) mg/dL POC Glucose (mg/dL) 160 H (75-99) mg/dL Calcium 8.2 L (8.4-10.2) mg/dL 08/02/20 08/02/20 08/03/20 Range/Units 16:49 20:26 01:54 PT (9.9-11.9) sec INR (0.90-1.11) Potassium (3.5-5.1) mmol/L Chloride (98-107) mmol/L Carbon Dioxide (22-30) mmol/L Glucose (74-99) mg/dL POC Glucose (mg/dL) 126 H 123 H 115 H (75-99) mg/dL Calcium (8.4-10.2) mg/dL 08/03/20 Range/Units 06:39 PT (9.9-11.9) sec INR (0.90-1.11) Potassium (3.5-5.1) mmol/L Chloride (98-107) mmol/L Carbon Dioxide (22-30) mmol/L Glucose (74-99) mg/dL POC Glucose (mg/dL) 105 H (75-99) mg/dL Calcium (8.4-10.2) mg/dL <Salima Barbour - Last Filed: 08/03/20 15:19> Subjective Objective - Vital Signs Vital signs: Vital Signs Temp 98.0 F 08/03/20 14:00 Pulse 91 08/03/20 14:00 Resp 19 08/03/20 14:00 BP 98/60 08/03/20 14:00 Pulse Ox 96 08/03/20 14:00 Intake & Output 08/02/20 08/03/20 08/03/20 18:59 06:59 18:59 Intake Total 1080 550 540 Output Total 3500 900 Balance -2420 550 -360 Weight 63.5 kg 63.5 kg Intake: Oral 1080 550 540 Output: Urine 3500 900 Other: Voiding Method Toilet Toilet Toilet Diaper Diaper Diaper # Voids 6 450 # Bowel Movements 1 - Labs CBC & Chem 7: 08/03/20 06:20 08/03/20 06:20 Labs: Abnormal Lab Results - Last 24 Hours (Table) 08/02/20 08/02/20 08/03/20 Range/Units 16:49 20:26 01:54 WBC (4.50-10.00) X 10*3/uL RBC (4.10-5.20) X 10*6/uL Hgb (12.0-15.0) g/dL Hct (37.2-46.3) % MCH (27.0-32.0) pg MCHC (32.0-37.0) g/dL RDW (11.5-14.5) % PT (9.9-11.9) sec INR (0.90-1.11) Carbon Dioxide (21.6-31.8) mmol/L POC Glucose (mg/dL) 126 H 123 H 115 H (75-99) mg/dL Calcium (8.7-10.3) mg/dL 08/03/20 08/03/20 08/03/20 Range/Units 06:20 06:20 06:20 WBC 10.15 H (4.50-10.00) X 10*3/uL RBC 3.82 L (4.10-5.20) X 10*6/uL Hgb 10.0 L (12.0-15.0) g/dL Hct 34.2 L (37.2-46.3) % MCH 26.2 L (27.0-32.0) pg MCHC 29.2 L (32.0-37.0) g/dL RDW 18.5 H (11.5-14.5) % PT 22.1 H (9.9-11.9) sec INR 2.13 H (0.90-1.11) Carbon Dioxide 37.0 H (21.6-31.8) mmol/L POC Glucose (mg/dL) (75-99) mg/dL Calcium 8.2 L (8.7-10.3) mg/dL 08/03/20 08/03/20 Range/Units 06:39 11:41 WBC (4.50-10.00) X 10*3/uL RBC (4.10-5.20) X 10*6/uL Hgb (12.0-15.0) g/dL Hct (37.2-46.3) % MCH (27.0-32.0) pg MCHC (32.0-37.0) g/dL RDW (11.5-14.5) % PT (9.9-11.9) sec INR (0.90-1.11) Carbon Dioxide (21.6-31.8) mmol/L POC Glucose (mg/dL) 105 H 116 H (75-99) mg/dL Calcium (8.7-10.3) mg/dL Assessment and Plan Assessment: Patient seen and examined independently. Patient was also seen by Solomon Thomas NP and case was discussed. I am in agreement with subjective, physical exam, assessment and plan as written above and amended below. Patient seen and examined at bedside. She is feeling better, breathing better, still having some rib pain on the right, but only there when she is coughing. Walked 2 laps in the hallway yesterday, and had a small BM. General: non toxic, no distress, appears at stated age Derm: warm, dry Head: atraumatic, normocephalic, symmetric Eyes: EOMI, no lid lag, anicteric sclera Mouth: no lip lesion, mucus membranes moist Cardiovascular: S1S2 reg, no murmur, positive posterior tibial pulse bilateral, Lungs: Ronchi birhgt base much improved , no accessory muscle use Abdominal: soft, + tender to palpation diffusely, no guarding, no appreciable organomegaly Ext: no gross muscle atrophy, no edema, no contractures Neuro: CN II-XI grossly intact, no focal neuro deficits Psych: Alert, oriented, appropriate affect Acute Systolic and diastolic CHF with EF 40-45% - on additional dose of bumex then transition to home toresimide
[2020-08-03 11:42] LABS: Glucose,Whole Blood 116 mg/dL (75-99)
[2020-08-03] MEDS: LIDOCAINE 5% PATCH TOPICAL SCH (11:45)
[2020-08-03] MEDS: IPRATROPIUM-ALBUTEROL 3 ML NEB INHALATION PRN ×2 (12:01→15:22)
[2020-08-03 12:48] VITALS: BMI 22.6
--- NOTE | 2020-08-03 14:35 | P.PN ---
Subjective Progress Note Date: 08/03/20 CHIEF COMPLAINT: Small bowel obstruction HISTORY OF PRESENT ILLNESS: The patient is a 84-year-old female status post lysis of adhesions small bowel resection 07/27/2020. She reports pre-existing history of chronic constipation. She has had a bowel since her present admission. She is being treated for chronic cough at this time. She is mobile. ROS: No fevers or chills. Has productive sputum. No chest pain. PHYSICAL EXAM: VITAL SIGNS: Reviewed CONSTITUTIONAL: Well developed and in no acute distress. EYES: Conjuctivae without sclera icterus. Extraocular movements grossly intact. HEAD, EARS, NOSE, THROAT: Moist buccal mucosa. Head is atraumatic, normocephalic. Hears conversational speech. No nasal drainage. NECK: Supple. No thyroidomegaly. RESPIRATORY: Non-labored respirations and equal bilateral excursions. CARDIOVASCULAR: Palpable 2+ radial pulses. ABDOMEN: Dressing intact. No peritonitis. MUSCULOSKELETAL: No gross deformity of the lower extremities noted. No clubbing. No cyanosis. SKIN: Good skin turgor. Well perfused. NEUROLOGIC: Cranial nerves II through XII grossly intact. No focal or lateralizing signs. PSYCH: Appropriate affect. Alert and oriented to person, place and time. CLINICAL LABS: White blood cell count now elevated over 10.0. Her INR is th erapuetic over 2.0 ASSESSMENT: 1. Small bowel obstruction due to adhesions 2. Chronic constipation 3. Chronic cough. 4. Leukocytosis PLAN: 1. Recommend stool softeners for chronic constipation 2. Monitor leukocytosis Objective - Vital Signs Vital signs: Vital Signs Temp 98.0 F 08/03/20 14:00 Pulse 91 08/03/20 14:00 Resp 19 08/03/20 14:00 BP 98/60 08/03/20 14:00 Pulse Ox 96 08/03/20 14:00 Intake & Output 08/02/20 08/03/20 08/03/20 18:59 06:59 18:59 Intake Total 1080 550 540 Output Total 3500 900 Balance -2420 550 -360 Weight 63.5 kg 63.5 kg Intake: Oral 1080 550 540 Output: Urine 3500 900 Other: Voiding Method Toilet Toilet Toilet Diaper Diaper Diaper # Voids 6 450 # Bowel Movements 1 - Labs CBC & Chem 7: 08/03/20 06:20 08/03/20 06:20 Labs: Abnormal Lab Results - Last 24 Hours (Table) 08/02/20 08/02/20 08/03/20 Range/Units 16:49 20:26 01:54 WBC (4.50-10.00) X 10*3/uL RBC (4.10-5.20) X 10*6/uL Hgb (12.0-15.0) g/dL Hct (37.2-46.3) % MCH (27.0-32.0) pg MCHC (32.0-37.0) g/dL RDW (11.5-14.5) % PT (9.9-11.9) sec INR (0.90-1.11) Carbon Dioxide (21.6-31.8) mmol/L POC Glucose (mg/dL) 126 H 123 H 115 H (75-99) mg/dL Calcium (8.7-10.3) mg/dL 08/03/20 08/03/20 08/03/20 Range/Units 06:20 06:20 06:20 WBC 10.15 H (4.50-10.00) X 10*3/uL RBC 3.82 L (4.10-5.20) X 10*6/uL Hgb 10.0 L (12.0-15.0) g/dL Hct 34.2 L (37.2-46.3) % MCH 26.2 L (27.0-32.0) pg MCHC 29.2 L (32.0-37.0) g/dL RDW 18.5 H (11.5-14.5) % PT 22.1 H (9.9-11.9) sec INR 2.13 H (0.90-1.11) Carbon Dioxide 37.0 H (21.6-31.8) mmol/L POC Glucose (mg/dL) (75-99) mg/dL Calcium 8.2 L (8.7-10.3) mg/dL 08/03/20 08/03/20 Range/Units 06:39 11:41 WBC (4.50-10.00) X 10*3/uL RBC (4.10-5.20) X 10*6/uL Hgb (12.0-15.0) g/dL Hct (37.2-46.3) % MCH (27.0-32.0) pg MCHC (32.0-37.0) g/dL RDW (11.5-14.5) % PT (9.9-11.9) sec INR (0.90-1.11) Carbon Dioxide (21.6-31.8) mmol/L POC Glucose (mg/dL) 105 H 116 H (75-99) mg/dL Calcium (8.7-10.3) mg/dL Assessment and Plan (1) Small bowel obstruction due to adhesions Current Visit: Yes Status: Acute Code(s): K56.50 - INTESTNL ADHESIONS, UNSP TO PARTIAL VERSUS COMPLETE OBST SNOMED Code(s): 797810454 (2) Chronic constipation Current Visit: Yes Status: Acute Code(s): K59.09 - OTHER CONSTIPATION SNOMED Code(s): 471156401 (3) Chronic anticoagulation Current Visit: Yes Status: Acute Code(s): Z79.01 - ROVING TELLER (CURRENT) USE OF ANTICOAGULANTS SNOMED Code(s): 920865203
[2020-08-03] MEDS: BENZONATATE 100 MG CAP PO SCH ×2 (15:51→20:37)
[2020-08-03 16:41] LABS: Glucose,Whole Blood 105 mg/dL (75-99)
[2020-08-03] MEDS ORDERED: WARFARIN 3 MG TAB PO ONE (18:00)
[2020-08-03] MEDS: SYMBICORT 160-4.5 MCG INHALER INHALATION PRN (19:17)
[2020-08-03 20:10] LABS: Glucose,Whole Blood 122 mg/dL (75-99)
[2020-08-03] MEDS: ATORVASTATIN 10 MG TAB PO SCH (20:38)
[2020-08-03] MEDS: LEVOTHYROXINE 25 MCG TAB PO SCH (20:38)
[2020-08-04 02:26] LABS: Glucose,Whole Blood 100 mg/dL (75-99)
[2020-08-04] MEDS: HYDROcodone/APAP 5-325MG 1 EACH TAB PO PRN ×2 (04:35→08:38)
[2020-08-04 06:49] LABS: Glucose,Whole Blood 100 mg/dL (75-99)
[2020-08-04] MEDS: IPRATROPIUM-ALBUTEROL 3 ML NEB INHALATION PRN ×4 (07:58→19:57)
[2020-08-04] MEDS: SYMBICORT 160-4.5 MCG INHALER INHALATION PRN ×2 (07:59→19:57)
[2020-08-04] MEDS: guaiFENesin 600 MG TABLET.ER PO SCH ×2 (08:31→21:09)
[2020-08-04] MEDS: METOPROLOL SUCCINATE (ER) 50 MG TAB.ER.24H PO SCH ×3 (08:31→21:09)
[2020-08-04] MEDS: BENZONATATE 100 MG CAP PO SCH ×3 (08:31→21:09)
[2020-08-04] MEDS: GABAPENTIN 100 MG CAP PO SCH ×3 (08:31→21:09)
[2020-08-04] MEDS: ASPIRIN 81 MG PO SCH (08:31)
[2020-08-04] MEDS: FAMOTIDINE 20 MG/2 ML VIAL IV SCH (08:32)
[2020-08-04] MEDS: LIDOCAINE 5% PATCH TOPICAL SCH (08:32)
[2020-08-04] MEDS ORDERED: TORSEMIDE 20 MG TAB PO SCH (09:00)
[2020-08-04 09:06] LABS: HCT 33.6 % (37.2-46.3); HGB 9.9 g/dL (12.0-15.0); MCH 26.3 pg (27.0-32.0); MCHC 29.5 g/dL (32.0-37.0); MCV 89.4 fL (80.0-97.0); Mean Platelet Volume 10.2 fL (9.5-12.2); Platelet Count 319 X 10*3/uL (140-440); RBC 3.76 X 10*6/uL (4.10-5.20); RDW 18.6 % (11.5-14.5); WBC 9.92 X 10*3/uL (4.50-10.00)
[2020-08-04 09:53] LABS: African American GFR (CKD) 96.3 (60.0-200.0); BUN/Creat Ratio 18.33 Ratio (12.00-20.00); Calcium 8.4 mg/dL (8.7-10.3); Non-African American GFR(CKD) 83.1 (60.0-200.0); Potassium 3.5 mmol/L (3.5-5.5)
[2020-08-04 09:56] LABS: INR 2.59 (0.90-1.11); Prothrombin Time 26.5 sec (9.9-11.9)
--- NOTE | 2020-08-04 10:43 | P.PN ---
Subjective Progress Note Date: 08/04/20 CHIEF COMPLAINT: Abdominal pain HISTORY OF PRESENT ILLNESS: Patient is followed for small bowel obstruction secondary to small bowel stricture. She is status post exploratory laparotomy, lysis of adhesion and small bowel resection. Patient is sitting up at bedside chair. She denies any pain. She is passing gas. Denies any nausea or vomiting. Her last bowel movement was 2 days ago. She's currently on a full liquid diet. Afebrile. WBC 9.9 to hemoglobin 9.9 INR 2.59 PHYSICAL EXAM: VITAL SIGNS: Reviewed. GENERAL: Well-developed in no acute distress. HEENT: No sclera icterus. Extraocular movements grossly intact. Moist buccal mucosa. Head is atraumatic, normocephalic. ABDOMEN: Soft. Nondistended. Incision site clean dry and intact NEUROLOGIC: Alert and oriented. Slightly confused. Cranial nerves II through XII grossly intact. ASSESSMENT: 1. 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 Hypokalemia 3. Anemia likely due to IV fluids 4. Chronic constipation PLAN: -Add Colace -Add Dulcolax suppository -Advance diet to regular -Continue pain medication as needed -Encouraged patient to increase activity -Encouraged patient to use incentive spirometer -Anticipate discharge possibly tomorrow Physician Production Control Technologist note has been reviewed by physician. Signing provider agrees with the documented findings, assessment, and plan of care. Objective - Vital Signs Vital signs: Vital Signs Temp 98.4 F 08/04/20 07:27 Pulse 74 08/04/20 08:10 Resp 17 08/04/20 07:27 BP 153/83 08/04/20 07:27 Pulse Ox 95 08/04/20 07:27 Intake & Output 08/03/20 08/04/20 08/04/20 18:59 06:59 18:59 Intake Total 540 580 Output Total 900 950 Balance -360 -370 Weight 63.5 kg 61 kg Intake: Oral 540 580 Output: Urine 900 950 Other: Voiding Method Toilet Toilet Diaper Diaper # Voids 4 - Labs CBC & Chem 7: 08/04/20 05:16 08/04/20 05:16 Labs: Abnormal Lab Results - Last 24 Hours (Table) 08/03/20 08/03/20 08/03/20 Range/Units 06:20 06:20 11:41 RBC (4.10-5.20) X 10*6/uL Hgb (12.0-15.0) g/dL Hct (37.2-46.3) % MCH (27.0-32.0) pg MCHC (32.0-37.0) g/dL RDW (11.5-14.5) % PT 22.1 H (9.9-11.9) sec INR 2.13 H (0.90-1.11) Carbon Dioxide 37.0 H (21.6-31.8) mmol/L POC Glucose (mg/dL) 116 H (75-99) mg/dL Calcium 8.2 L (8.7-10.3) mg/dL 08/03/20 08/03/20 08/04/20 Range/Units 16:40 20:08 02:23 RBC (4.10-5.20) X 10*6/uL Hgb (12.0-15.0) g/dL Hct (37.2-46.3) % MCH (27.0-32.0) pg MCHC (32.0-37.0) g/dL RDW (11.5-14.5) % PT (9.9-11.9) sec INR (0.90-1.11) Carbon Dioxide (21.6-31.8) mmol/L POC Glucose (mg/dL) 105 H 122 H 100 H (75-99) mg/dL Calcium (8.7-10.3) mg/dL 08/04/20 08/04/20 08/04/20 Range/Units 05:16 05:16 05:16 RBC 3.76 L (4.10-5.20) X 10*6/uL Hgb 9.9 L (12.0-15.0) g/dL Hct 33.6 L (37.2-46.3) % MCH 26.3 L (27.0-32.0) pg MCHC 29.5 L (32.0-37.0) g/dL RDW 18.6 H (11.5-14.5) % PT 26.5 H (9.9-11.9) sec INR 2.59 H (0.90-1.11) Carbon Dioxide (21.6-31.8) mmol/L POC Glucose (mg/dL) (75-99) mg/dL Calcium 8.4 L (8.7-10.3) mg/dL 08/04/20 Range/Units 06:47 RBC (4.10-5.20) X 10*6/uL Hgb (12.0-15.0) g/dL Hct (37.2-46.3) % MCH (27.0-32.0) pg MCHC (32.0-37.0) g/dL RDW (11.5-14.5) % PT (9.9-11.9) sec INR (0.90-1.11) Carbon Dioxide (21.6-31.8) mmol/L POC Glucose (mg/dL) 100 H (75-99) mg/dL Calcium (8.7-10.3) mg/dL
[2020-08-04] MEDS ORDERED: POTASSIUM CHLORIDE ER 20 MEQ TAB.ER PO STA (10:44)
[2020-08-04] MEDS: DOCUSATE 100 MG CAP PO SCH ×2 (10:57→21:09)
[2020-08-04 11:26] LABS: Glucose,Whole Blood 120 mg/dL (75-99)
[2020-08-04] MEDS ORDERED: bisacodyL 10 MG SUPP RECTAL STA (11:49)
--- NOTE | 2020-08-04 13:36 | P.PN ---
<Solomon Thomas - Last Filed: 08/04/20 13:14> Subjective Progress Note Date: 08/04/20 Principal diagnosis: Partial small bowel obstruction with concerns for underlying infectious process such as enteritis Hospital Course: Patient is an 84-year-old female with a past medical history including CAD with pacemaker/defibrillator placement, mitral valve replacement on Coumadin, chronic diastolic heart failure, severe pulmonary hypertension 2 L home O2 dependent, hypertension, hyperlipidemia, hypothyroidism, neuropathy, GERD, and history of a bowel obstruction with herniation resulting in a small bowel resection. The patient presented to [facility] with a chief complaint of abdominal pain and distention and was admitted for partial bowel obstruction with concerns of underlying infectious process such as enteritis. CT scan abdomen and pelvis was completed revealing partial SBO in left mid abdomen due to adhesions from adjacent surgical change and mild ill-defined fluid and fat stranding related to lower abdomen is present making underlying infectious process or enteritis not entirely excluded. She was placed on IV antibiotics: Flagyl and Rocephin, NG tube was placed to LIS for decompression and pt underwent an exploratory laparotomy with lysis of adhesions and small bowel resection on 07/27/[address] Oliver. Postsurgically, patient was found to have hypovolemia with hemoglobin of 6.4. Patient received 1 unit packed RBCs stabilizing hemoglobin levels. Patient did develop an acute exacerbation of chronic diastolic heart failure requiring some IV diuresis. Physical exam: Patient was seen and fully evaluated this morning. She was sitting in chair and reports feeling "great." Patient reports her cough remains but is much improved today. Patient had 1850 annuls of urinary output yesterday after receiving her second dose of Bumex. Patient was started back on home Toresemide this morning. CBC reviewed and hemoglobin remaining stable at 9.9. INR remains therapeutic at 2.59. BMP and mag were unremarkable. Discussed plan of care with general surgery. Patient's diet to be increased to regular diet and they added on Colace as well as a Dulcolax suppository to promote improved bowel function as pt has only had two small bowel movements since bowel resection and has not had a bowel movement since 08/02/20. Patient does report she continues to pass gas and she reports improvement in postsurgical incision site tenderness. Patient has been increasing her ambulation distance, walking up and down the halls with RN and using a walker. Surgical dressing to midline abdomen remains intact with no noted signs of active bleeding. Abdominal binder in place. Patient continues to deny having any other complaints at this time including headache, lightheadedness, dizziness, chest pain, palpitations, shortness of breath, dyspnea with exertion, or experiencing any pain/numbness/swelling/weakness/tingling in extremities. General: non toxic, no distress, appears at stated age. Derm: warm, dry Head: atraumatic, normocephalic, symmetric Eyes: EOMI, no lid lag, anicteric sclera Mouth: no lip lesion, mucus membranes moist Cardiovascular: Murmur present. Pacemaker/defibrillator left anterior chest. Positive posterior tibial pulses bilaterally. Cap refill less than 2 seconds. Lungs: Respirations even, regular, and unlabored on 2L O2 via NC with SpO2 98%. Lung sounds continue to improve. Upon assessment patient with diffuse soft crackles to the left lower lobe. Abdominal: Soft distended . Hypoactive bowel sounds. Slight postsurgical incision site tenderness. No guarding, no appreciable organomegaly. Surgical incision well approximated with no dehiscence, erythema, or drainage noted. Sta ples intact. Dressing to midline abdomen changed and intact. Abdominal binder then placed. Ext: No gross muscle atrophy, no edema, no contractures. Neuro: Speech clear, movement and sensation of upper and lower extremities intact, no focal neuro deficits Psych: Alert, oriented, appropriate affect Assessment and Plan of Care: Partial small bowel obstruction with concerns for underlying infectious process such as enteritis -Patient was placed on IV antibiotics: Flagyl and Rocephin and completed course on 07/28/20. -NG tube was placed to LIS for decompression upon arrival and removed on 07/28/20. -Pt underwent an exploratory laparotomy with lysis of adhesions and small bowel resection on 07/27/[address] Oliver. -Patient is day 8 postop exploratory laparotomy with lysis of adhesions and small bowel resection which occurred on 07/27/[address] Oliver. -General surgery advanced diet to regular diet this morning. -Symptomatic care and pain management with Zofran as needed for nausea/vomiting and morphine as needed for pain. -Continue close monitoring of I's and O's Severe Pulmonary Hypertension with Acute exacerbation of Chronic Systolic and Diastolic Heart Failure, stable at this time -Echocardiogram completed 03/25/20 revealed a preserved EF of 50-55% with moderate aortic stenosis and moderate to severe pulmonary hypertension. -Echocardiogram completed 07/26/20 revealed a moderately impaired ejection fraction between 40 and 45% with moderate aortic stenosis and severe pulmonary hypertension. -Status post blood transfusion on 07/31/20 pt was found to have bilateral diffuse coarse crackles with new onset JVD and a CXR was completed revealing worsening CHF exacerbation. Repeat CXR this morning -Resume home Torsemide. -Continue to monitor I's and O's closely along with daily electrolytes. Acute blood loss anemia, improved -Preoperative hemoglobin 11.7 and has trended down daily to 6.1 resulting in transfusion of 1 unit PRBCs with posttransfusion hemoglobin of 9.3 and repeat today of 9.9. -We will continue to monitor H&H closely. Hypokalemia, resolved History of atrial fibrillation and mitral valve replacement on Coumadin -INR therapeutic at 2.59 -Continue anticoagulation with Coumadin, pharmacy to dose. Hypertension -Monitor vital signs and continue metoprolol. Hyperlipidemia -Continue daily medication regimen with atorvastatin. Hypothyroidism -Continue daily medication regimen with levothyroxine 25 g GERD -Continue daily medication regimen with Protonix. CODE STATUS: Full code DVT prophylaxis: Coumadin. Discussed with: Patient and RN. Also called and updated patient's daughter Tabatha. Anticipated discharge date: Pending clinical course and general surgery recommendations, possibly tomorrow pending if pt tolerates regular diet and is able to have a bowel movement. Anticipated discharge place: Home, patient's daughter Tabatha plans to be car egiver. A total of 45 minutes was spent on the care of this complex patient more than 50% of the time was spent in counseling and care coordination. Objective - Vital Signs Vital signs: Vital Signs Temp 98.4 F 08/04/20 07:27 Pulse 74 08/04/20 08:10 Resp 17 08/04/20 07:27 BP 153/83 08/04/20 07:27 Pulse Ox 95 08/04/20 07:27 Intake & Output 08/03/20 08/04/20 08/04/20 18:59 06:59 18:59 Intake Total 540 580 Output Total 900 950 Balance -360 -370 Weight 63.5 kg 61 kg Intake: Oral 540 580 Output: Urine 900 950 Other: Voiding Method Toilet Toilet Diaper Diaper # Voids 4 - Labs CBC & Chem 7: 08/04/20 05:16 08/04/20 05:16 Labs: Abnormal Lab Results - Last 24 Hours (Table) 08/03/20 08/03/20 08/03/20 Range/Units 06:20 06:20 06:20 WBC 10.15 H (4.50-10.00) X 10*3/uL RBC 3.82 L (4.10-5.20) X 10*6/uL Hgb 10.0 L (12.0-15.0) g/dL Hct 34.2 L (37.2-46.3) % MCH 26.2 L (27.0-32.0) pg MCHC 29.2 L (32.0-37.0) g/dL RDW 18.5 H (11.5-14.5) % PT 22.1 H (9.9-11.9) sec INR 2.13 H (0.90-1.11) Carbon Dioxide 37.0 H (21.6-31.8) mmol/L POC Glucose (mg/dL) (75-99) mg/dL Calcium 8.2 L (8.7-10.3) mg/dL 08/03/20 08/03/20 08/03/20 Range/Units 11:41 16:40 20:08 WBC (4.50-10.00) X 10*3/uL RBC (4.10-5.20) X 10*6/uL Hgb (12.0-15.0) g/dL Hct (37.2-46.3) % MCH (27.0-32.0) pg MCHC (32.0-37.0) g/dL RDW (11.5-14.5) % PT (9.9-11.9) sec INR (0.90-1.11) Carbon Dioxide (21.6-31.8) mmol/L POC Glucose (mg/dL) 116 H 105 H 122 H (75-99) mg/dL Calcium (8.7-10.3) mg/dL 08/04/20 08/04/20 08/04/20 Range/Units 02:23 05:16 05:16 WBC (4.50-10.00) X 10*3/uL RBC 3.76 L (4.10-5.20) X 10*6/uL Hgb 9.9 L (12.0-15.0) g/dL Hct 33.6 L (37.2-46.3) % MCH 26.3 L (27.0-32.0) pg MCHC 29.5 L (32.0-37.0) g/dL RDW 18.6 H (11.5-14.5) % PT 26.5 H (9.9-11.9) sec INR 2.59 H (0.90-1.11) Carbon Dioxide (21.6-31.8) mmol/L POC Glucose (mg/dL) 100 H (75-99) mg/dL Calcium (8.7-10.3) mg/dL 08/04/20 08/04/20 Range/Units 05:16 06:47 WBC (4.50-10.00) X 10*3/uL RBC (4.10-5.20) X 10*6/uL Hgb (12.0-15.0) g/dL Hct (37.2-46.3) % MCH (27.0-32.0) pg MCHC (32.0-37.0) g/dL RDW (11.5-14.5) % PT (9.9-11.9) sec INR (0.90-1.11) Carbon Dioxide (21.6-31.8) mmol/L POC Glucose (mg/dL) 100 H (75-99) mg/dL Calcium 8.4 L (8.7-10.3) mg/dL <Anuj Meier - Last Filed: 08/04/20 17:28> Objective - Vital Signs Vital signs: Vital Signs Temp 98.3 F 08/04/20 14:00 Pulse 72 08/04/20 15:33 Resp 17 08/04/20 14:00 BP 132/78 08/04/20 14:00 Pulse Ox 97 08/04/20 14:00 Intake & Output 08/03/20 08/04/20 08/04/20 18:59 06:59 18:59 Intake Total 540 580 Output Total 900 950 600 Balance -360 -370 -600 Weight 63.5 kg 61 kg Intake: Oral 540 580 Output: Urine 900 950 600 Other: Voiding Method Toilet Toilet Toilet Diaper Diaper Diaper # Voids 4 - Labs CBC & Chem 7: 08/04/20 05:16 08/04/20 05:16 Labs: Abnormal Lab Results - Last 24 Hours (Table) 08/03/20 08/04/20 08/04/20 Range/Units 20:08 02:23 05:16 RBC (4.10-5.20) X 10*6/uL Hgb (12.0-15.0) g/dL Hct (37.2-46.3) % MCH (27.0-32.0) pg MCHC (32.0-37.0) g/dL RDW (11.5-14.5) % PT 26.5 H (9.9-11.9) sec INR 2.59 H (0.90-1.11) POC Glucose (mg/dL) 122 H 100 H (75-99) mg/dL Calcium (8.7-10.3) mg/dL 08/04/20 08/04/20 08/04/20 Range/Units 05:16 05:16 06:47 RBC 3.76 L (4.10-5.20) X 10*6/uL Hgb 9.9 L (12.0-15.0) g/dL Hct 33.6 L (37.2-46.3) % MCH 26.3 L (27.0-32.0) pg MCHC 29.5 L (32.0-37.0) g/dL RDW 18.6 H (11.5-14.5) % PT (9.9-11.9) sec INR (0.90-1.11) POC Glucose (mg/dL) 100 H (75-99) mg/dL Calcium 8.4 L (8.7-10.3) mg/dL 08/04/20 08/04/20 Range/Units 11:24 16:41 RBC (4.10-5.20) X 10*6/uL Hgb (12.0-15.0) g/dL Hct (37.2-46.3) % MCH (27.0-32.0) pg MCHC (32.0-37.0) g/dL RDW (11.5-14.5) % PT (9.9-11.9) sec INR (0.90-1.11) POC Glucose (mg/dL) 120 H 111 H (75-99) mg/dL Calcium (8.7-10.3) mg/dL Assessment and Plan Assessment: Patient seen and evaluated by me independently. Patient was also seen by CHARISMA, the original author of this note. I am in agreement with the subjective, physical exam, and assessment and plan as documented with the addition/changes of my exam and assessment below. Gen: awake, alert HEENT: normocephalic, atraumatic, good hearing acuity, moist mucous membranes, Resp: good air exchange, breathing comfortably with no accessory muscle use, clear to auscultation bilaterally without wheezes CVS: good distal perfusion x 4, regular rate and rhythm GI: soft, NTTP, ND : no SPT, no CVAT, chaudhry catheter not present MSK: no pitting edema, no clubbing Neuro: non-focal, moving all extremities Psych: cooperative, euthymic mood Plan: No changes in the documented plan
[2020-08-04 16:42] LABS: Glucose,Whole Blood 111 mg/dL (75-99)
[2020-08-04] MEDS ORDERED: WARFARIN 3 MG TAB PO ONE (18:00)
[2020-08-04] MEDS: ATORVASTATIN 10 MG TAB PO SCH (21:09)
[2020-08-04] MEDS: LEVOTHYROXINE 25 MCG TAB PO SCH (21:10)
[2020-08-04 21:31] LABS: Glucose,Whole Blood 150 mg/dL (75-99)
[2020-08-05] MEDS: HYDROcodone/APAP 5-325MG 1 EACH TAB PO PRN ×2 (03:51→14:06)
[2020-08-05 07:16] LABS: Glucose,Whole Blood 106 mg/dL (75-99)
[2020-08-05] MEDS: FAMOTIDINE 20 MG/2 ML VIAL IV SCH (08:15)
[2020-08-05] MEDS: GABAPENTIN 100 MG CAP PO SCH (08:15)
[2020-08-05] MEDS: DOCUSATE 100 MG CAP PO SCH (08:15)
[2020-08-05] MEDS: BENZONATATE 100 MG CAP PO SCH (08:15)
[2020-08-05] MEDS: METOPROLOL SUCCINATE (ER) 50 MG TAB.ER.24H PO SCH (08:15)
[2020-08-05] MEDS: ASPIRIN 81 MG PO SCH (08:16)
[2020-08-05] MEDS: guaiFENesin 600 MG TABLET.ER PO SCH (08:16)
[2020-08-05] MEDS: LIDOCAINE 5% PATCH TOPICAL SCH (08:18)
[2020-08-05 08:42] VITALS: BP 173/80; RESP 16; TEMP 98
[2020-08-05] MEDS: SYMBICORT 160-4.5 MCG INHALER INHALATION PRN (08:46)
[2020-08-05] MEDS: IPRATROPIUM-ALBUTEROL 3 ML NEB INHALATION PRN (08:46)
[2020-08-05 08:59] VITALS: PULSE 72
[2020-08-05] MEDS ORDERED: TORSEMIDE 20 MG TAB PO SCH (09:00)
[2020-08-05] MEDS ORDERED: bisacodyL 10 MG SUPP RECTAL STA (09:13)
[2020-08-05 11:05] LABS: INR 2.64 (0.90-1.11)
[2020-08-05 11:34] LABS: Glucose,Whole Blood 133 mg/dL (75-99)
--- NOTE | 2020-08-05 12:50 | P.PN ---
Subjective Progress Note Date: 08/05/20 CHIEF COMPLAINT: Abdominal pain HISTORY OF PRESENT ILLNESS: Patient is followed for small bowel obstruction secondary to small bowel stricture. She is status post exploratory laparotomy, lysis of adhesion and small bowel resection. Patient denies any abdominal pain. She denies any nausea or vomiting. She is tolerating regular diet. She is passing gas. Still had not had a bowel movement this morning. She had refused the Dulcolax suppository yesterday but is willing to take it today. She is afe brile. INR 2.64 PHYSICAL EXAM: VITAL SIGNS: Reviewed. GENERAL: Well-developed in no acute distress. HEENT: No sclera icterus. Extraocular movements grossly intact. Moist buccal mucosa. Head is atraumatic, normocephalic. ABDOMEN: Soft. Nondistended. Dressing clean dry and intact NEUROLOGIC: Alert and oriented. Slightly confused. Cranial nerves II through XII grossly intact. ASSESSMENT: 1. Small bowel obstruction secondary to small bowel stricture status post exploratory laparotomy, lysis of adhesions and small bowel resection 2. Hypokalemia improved 3. Anemia likely due to IV fluids 4. Chronic constipation PLAN: -Continue regular diet -Patient can be discharge from surgical standpoint -Patient follow-up with Dr. Oliver in 1 week Physician Grievance Coordinator note has been reviewed by physician. Signing provider agrees with the documented findings, assessment, and plan of care. Objective - Vital Signs Vital signs: Vital Signs Temp 98.0 F 08/05/20 08:41 Pulse 72 08/05/20 08:58 Resp 16 08/05/20 08:41 BP 173/80 08/05/20 08:41 Pulse Ox 99 08/05/20 08:41 Intake & Output 08/04/20 08/05/20 08/05/20 18:59 06:59 18:59 Output Total 600 500 Balance -600 -500 Weight 56.5 kg Output: Urine 600 500 Other: Voiding Method Toilet Toilet Diaper Diaper # Voids 1 - Labs CBC & Chem 7: 08/04/20 05:16 08/04/20 05:16 Labs: Abnormal Lab Results - Last 24 Hours (Table) 08/04/20 08/04/20 08/05/20 Range/Units 16:41 21:30 05:56 PT 27.0 H (9.9-11.9) sec INR 2.64 H (0.90-1.11) POC Glucose (mg/dL) 111 H 150 H (75-99) mg/dL 08/05/20 08/05/20 Range/Units 07:14 11:33 PT (9.9-11.9) sec INR (0.90-1.11) POC Glucose (mg/dL) 106 H 133 H (75-99) mg/dL
[2020-08-05 13:59] LABS: Hemoglobin A1C 6.3 % (4.0-6.0)
--- NOTE | 2020-08-05 14:29 | P.DS ---
Providers Date of admission: 07/25/20 14:15 Expected date of discharge: 08/05/20 Attending physician: Salima Barbour DO Consults: 07/25/20 14:14 Consult Physician Routine Consulting Provider: Marco A Oliver Consult Reason/Comments: SBO Do you want consulting provider notified?: Already Contacted Primary care physician: Rashawn Farah [facility] Hospital Course: Discharge Diagnosis: -Partial small bowel obstruction resulting in bowel resection -Severe Pulmonary Hypertension with Acute exacerbation of Chronic Systolic and Diastolic Heart Failure, improved -Acute blood loss anemia, improved and stable -Hypokalemia, resolved -History of atrial fibrillation and mitral valve replacement on Coumadin -Hypertension -Hyperlipidemia -Hypothyroidism -GERD Hospital Course: Patient is an 84-year-old female with a past medical history including CAD with pacemaker/defibrillator placement, mitral valve replacement on Coumadin, chronic diastolic heart failure, severe pulmonary hypertension 2 L home O2 dependent, hypertension, hyperlipidemia, hypothyroidism, neuropathy, GERD, and history of a bowel obstruction with herniation resulting in a small bowel resection. The patient presented to [facility] with a chief complaint of abdominal pain and distention and was admitted for partial bowel obstruction with concerns of underlying infectious process such as enteritis. CT scan abdomen and pelvis was completed revealing partial SBO in left mid abdomen due to adhesions from adjacent surgical change and mild ill-defined fluid and fat stranding related to lower abdomen is present making underlying infectious process or enteritis not entirely excluded. She was placed on IV antibiotics: Flagyl and Rocephin, NG tube was placed to LIS for decompression and pt underwent an exploratory laparotomy with lysis of adhesions and small bowel resection on 07/27/[address] Oliver. Postsurgically, patient was found to have hypovolemia with hemoglobin of 6.4. Patient received 1 unit packed RBCs stabilizing hemoglobin levels. Patient did develop an acute exacerbation of chronic diastolic heart failure requiring some IV diuresis. Once patient was diuresed, hemoglobin was stabilized, and patient progressed well through postoperative period. Patient has had a total of 3 bowel movements status post pulmonary resection on 07/27/19. Patient was cleared by general surgery for discharge home. Patient instructed to take close attention to bowel function and keep track of bowel movements. She was discharged home on docusate twice daily along with continuation of her home MiraLAX to promote more frequent and softer bowel movements. Patient to follow-up with PCP in 1-[address] Oliver's office next week. Patient being discharged home in the care of her daughter, Tabatha with [facility] home[facility]. Physical exam: Patient was seen and fully evaluated at bedside. Pt very eager to go home, she states she is feeling well. Pt has been up and walking halls with nursing staff. She has been tolerating her regular diet and had a bowel movement this afternoon. Pt denies any other complaints or concerns including headache, chest pain, palpitations, shortness of breath, nausea, or vomiting. General: non toxic, no distress, appears at stated age. Derm: warm, dry Head: atraumatic, normocephalic, symmetric Eyes: EOMI, no lid lag, anicteric sclera Mouth: no lip lesion, mucus membranes moist Cardiovascular: Murmur present. Pacemaker/defibrillator left anterior chest. Positive posterior tibial pulses bilaterally. Cap refill less than 2 seconds. Lungs: Respirations even, regular, and unlabored on 2L O2 via NC with SpO2 98%. Lung sounds continue to improve. Upon assessment patient with diffuse soft crackles to the left lower lobe. Abdominal: Soft distended . Hypoactive bowel sounds. Slight postsurgical incision site tenderness. No guarding, no appreciable organomegaly. Surgical incision well approximated with no dehiscence, erythema, or drainage noted. [place] intact. Dressing to midline abdomen changed and intact. Abdominal binder then placed. Ext: No gross muscle atrophy, no edema, no contractures. Neuro: Speech clear, movement and sensation of upper and lower extremities intact, no focal neuro deficits Psych: Alert, oriented, appropriate affect A total of 45 minutes of time were spent preparing this complex discharge summary. Patient Condition at Discharge: Stable Plan - Discharge Summary Discharge Rx Participant: No New Discharge Prescriptions: New Docusate [Colace] 100 mg PO BID #60 cap Benzonatate [Tessalon Perles] 100 mg PO TID #60 cap Continue Gabapentin [Neurontin] 200 mg PO TID Levothyroxine Sodium [Synthroid] 25 mcg PO HS Lovastatin [Mevacor] 20 mg PO HS Aspirin 81 mg PO DAILY Torsemide [Demadex] 10 mg PO SUTUTHSA Warfarin Sodium [Coumadin] 3 mg PO HS HYDROcodone/APAP 7.5-325MG [Winside 7.5-325] 1 tab PO Q8H PRN PRN Reason: Pain Omeprazole 20 mg PO BID Fluticasone Propion/Salmeterol [Airduo Digihaler 232-14 Mcg] 1 puff INHALATION RT-BID PRN PRN Reason: Shortness Of Breath Torsemide [Demadex] 20 mg PO MOWEFR Ipratropium-Albuterol Nebulize [Duoneb 0.5 mg-3 mg/3 ml Soln] 3 ml INHALATION RT-QID PRN PRN Reason: Shortness Of Breath Metoprolol Succinate (ER) [Toprol XL] 50 mg PO TID Psyllium Husk [Metamucil] 1.2 gm PO TID Discontinued Sennosides [Senna] 8.6 mg PO DAILY Discharge Medication List Gabapentin [Neurontin] 200 mg PO TID 10/08/14 [History] Levothyroxine Sodium [Synthroid] 25 mcg PO HS 06/23/16 [History] Lovastatin [Mevacor] 20 mg PO HS 06/03/17 [History] Aspirin 81 mg PO DAILY 06/06/17 [History] Torsemide [Demadex] 10 mg PO SUTUTHSA 12/08/19 [History] Warfarin Sodium [Coumadin] 3 mg PO HS 12/08/19 [History] HYDROcodone/APAP 7.5-325MG [Winside 7.5-325] 1 tab PO Q8H PRN 03/24/20 [History] Omeprazole 20 mg PO BID 03/24/20 [History] Fluticasone Propion/Salmeterol [Airduo Digihaler 232-14 Mcg] 1 puff INHALATION RT-BID PRN 05/29/20 [History] Ipratropium-Albuterol Nebulize [Duoneb 0.5 mg-3 mg/3 ml Soln] 3 ml INHALATION RT -QID PRN 05/29/20 [History] Torsemide [Demadex] 20 mg PO MOWEFR 05/29/20 [History] Metoprolol Succinate (ER) [Toprol XL] 50 mg PO TID 07/25/20 [History] Psyllium Husk [Metamucil] 1.2 gm PO TID 07/25/20 [History] Benzonatate [Tessalon Perles] 100 mg PO TID #60 cap 08/05/20 [Rx] Docusate [Colace] 100 mg PO BID #60 cap 08/05/20 [Rx] Follow up Appointment(s)/Referral(s): [facility], [NON-STAFF] - Rashawn Farah MD [Primary Care Provider] - 1-2 days [facility] [NON-STAFF] - (Call to inquire about a wheelchair if needed. ) Marco A Oliver MD [STAFF PHYSICIAN] - 1 Week Activity/Diet/Wound Care/Special Instructions: Activity: As tolerated, ambulate with walker and assistance. Diet: Heart healthy high-fiber diet Wound Care: Daily dressing change, keep wound clean and dry. Special Instructions: Please see pay attention to bowel function and keep track of bowel movements. Your being discharged home on Docusate twice daily along with continuation of your home miralax to promote more frequent and softer bowel movements. Be sure to follow up as directed with Dr. Oliver's office in 1 week. No lifting over 10 pounds You may shower. No soaking or tub baths for 2 weeks Very light activity until you are reevaluated at your follow up appointment with your surgeon. Discharge/Stand Alone Forms: [facility] Home
[2020-08-05] MEDS ORDERED: WARFARIN 3 MG TAB PO ONE (18:00)
[2020-08-05] MEDS ORDERED: FAMOTIDINE 20 MG/2 ML VIAL IV SCH (21:00)
== END 2020-08-05 15:52 | disposition home health service (06) | DRG 329 ==
LOC: EC 11:00 → 4SSUR 14:15
PROVIDERS: ADMIT Internal Medicine; ATTEND Internal Medicine
PROC: 0DN80ZZ Release Small Intestine, Open Approach (ICD-10-PCS; principal; 2020-07-27 07:30)
PROC: 0DB80ZZ Excision of Small Intestine, Open Approach (ICD-10-PCS; principal; 2020-07-27 07:30)
PROC: 30233N1 Transfusion of Nonautologous Red Blood Cells into Peripheral Vein, Percutaneous Approach (ICD-10-PCS; 2020-07-30 18:20)
DX: K56.51 Intestinal adhesions [bands], with partial obstruction (principal); I50.43 Acute on chronic combined systolic (congestive) and diastolic (congestive) heart failure; D62 Acute posthemorrhagic anemia; E87.0 Hyperosmolality and hypernatremia; I42.9 Cardiomyopathy, unspecified; I48.21 Permanent atrial fibrillation; K22.70 Barrett's esophagus without dysplasia; K52.9 Noninfective gastroenteritis and colitis, unspecified; E03.9 Hypothyroidism, unspecified; E11.9 Type 2 diabetes mellitus without complications; E78.5 Hyperlipidemia, unspecified; E86.1 Hypovolemia; E87.6 Hypokalemia; H91.90 Unspecified hearing loss, unspecified ear; I08.2 Rheumatic disorders of both aortic and tricuspid valves; I11.0 Hypertensive heart disease with heart failure; I25.10 Atherosclerotic heart disease of native coronary artery without angina pectoris; I27.20 Pulmonary hypertension, unspecified; K21.9 Gastro-esophageal reflux disease without esophagitis; Z20.822 Contact with and (suspected) exposure to COVID-19; Z79.01 Long term (current) use of anticoagulants; Z79.82 Long term (current) use of aspirin; Z79.890 Hormone replacement therapy; Z79.899 Other long term (current) drug therapy; Z82.49 Family history of ischemic heart disease and other diseases of the circulatory system; Z82.61 Family history of arthritis; Z95.810 Presence of automatic (implantable) cardiac defibrillator; Z95.3 Presence of xenogenic heart valve; Z99.81 Dependence on supplemental oxygen; Z99.89 Dependence on other enabling machines and devices; M15.9 Polyosteoarthritis, unspecified; Z87.19 Personal history of other diseases of the digestive system; K59.09 Other constipation; Z90.49 Acquired absence of other specified parts of digestive tract
CPT/HCPCS: 36410; 36415; 71045; 74176; 76937; 80048; 80053; 81003; 82150; 83036; 83690; 83735; 85025; 85027; 85610; 85730; 86850; 86900; 86901; 86920; 87635; 88307; 93306; 94640; 94760; 96361; 96365; 96366; 96367; 96368; 96375; 96376; 99285

== ENCOUNTER 2020-08-16 15:49 | Emergency (ER) | payer MEDICARE ==
[2020-08-16 15:57] VITALS: RESP 18; TEMP 98.4
[2020-08-16] MEDS ORDERED: TOPICAL SKIN ADHESIVE 1 EACH AMP TOPICAL ONE (16:20)
--- NOTE | 2020-08-16 16:23 | ED ---
General Adult HPI - General Chief complaint: Fall Stated complaint: fall, hit head Time Seen by Provider: 08/16/20 16:11 Source: patient Mode of arrival: wheelchair Limitations: no limitations - History of Present Illness Initial comments: Dictation was produced using [employer] dictation software. please excuse any grammatical, word or spelling errors. This patient was cared for during a federal and state declared state of emergency secondary to Covid 19 Chief Complaint: 84-year-old female presents with head injury after fall History of Present Illness: 84-year-old female who when she takes for atrial fibrillation. Patient was walking around in her daughter's laundry room she tripped over a box at tools causing her to fall forward P she states she landed on her knees and hit her head. Patient takes Coumadin for atrial fibrillation. She denies any loss of consciousness. She has no neck pain. She is brought to the emergency department by daughter just make sure she doesn't have intracranial bleed. Patient did suffer a mild laceration to her posterior right hand. Mild chest pain from the fall. The ROS documented in this emergency department record has been reviewed and confirmed by me. Those systems with pertinent positive or negative responses have been documented in the HPI. All other systems are other negative and/or noncontributory. PHYSICAL EXAM: General Impression: Alert and oriented x3, not in acute distress HEENT: Mild right periorbital ecchymoses, superficial abrasion to the right lateral eyebrow extra-ocular movements intact, pupils equal and reactive to light bilaterally, mucous membranes moist. Cardiovascular: Heart regular rate and rhythm Chest: Able to complete full sentences, no retractions, no tachypnea Abdomen: abdomen soft, non-tender, non-distended, no organomegaly Musculoskeletal: Pulses present and equal in all extremities, no peripheral edema Motor: no focal deficits noted Neurological: CN II-XII grossly intact, no focal motor or sensory deficits noted Skin: Superficial laceration to the right posterior hand Psych: Normal affect and mood ED course: 84-year-old female presents after fall after tripping over a bag at tools signs upon arrival shows heart rate of 110, rest of vital signs within acceptable limits. Patient is well-appearing at bedside. Computed tomography scan of the head and C-spine shows no acute processes. No signs of traumatic injury. Chest x-ray shows normal heart failure with pleural effusions. It does appear to be improved compared to previous exam. Family request a brain natruretic peptide level which was 1660. Patient showing a signs respiratory distress. No concerns for heart failure exacerbation at this time. EKG interpretation: Ventricular rate 110, paced rhythm,. Interval to 72, QRS 134, QTC 565. No NE prolongation, no QTC prolongation, no ST or T-wave changes noted. EKG compared to 05/29/2020 showing no changes. Overall, this EKG is unremarkable - Related Data Home Medications Medication Instructions Recorded Confirmed Gabapentin [Neurontin] 200 mg PO TID 10/08/14 08/16/20 Levothyroxine Sodium [Synthroid] 25 mcg PO HS 06/23/16 08/16/20 Lovastatin [Mevacor] 20 mg PO HS 06/03/17 08/16/20 Aspirin 81 mg PO DAILY 06/06/17 08/16/20 Torsemide [Demadex] 10 mg PO SUTUTHSA 12/08/19 08/16/20 Warfarin Sodium [Coumadin] 3 mg PO HS 12/08/19 08/16/20 HYDROcodone/APAP 7.5-325MG [[place] 1 tab PO Q8H PRN 03/24/20 08/16/20 7.5-325] Omeprazole 20 mg PO BID 03/24/20 08/16/20 Fluticasone Propion/Salmeterol 1 puff INHALATION RT-BID PRN 05/29/20 08/16/20 [Airduo Digihaler 232-14 Mcg] Ipratropium-Albuterol Nebulize 3 ml INHALATION RT-QID PRN 05/29/20 08/16/20 [Duoneb 0.5 mg-3 mg/3 ml Soln] Torsemide [Demadex] 20 mg PO MOWEFR 05/29/20 08/16/20 Metoprolol Succinate (ER) [Toprol 50 mg PO TID 07/25/20 08/16/20 XL] Psyllium Husk [Metamucil] 1.2 gm PO TID 07/25/20 08/16/20 Previous Rx's Medication Instructions Recorded Benzonatate [Tessalon Perles] 100 mg PO TID #60 cap 08/05/20 Docusate [Colace] 100 mg PO BID #60 cap 08/05/20 Allergies Allergy/AdvReac Type Severity Reaction Status Date / Time amoxicillin trihydrate Allergy Swelling Verified 08/16/20 16:31 [From Augmentin] ciprofloxacin [From Cipro] Allergy Swelling Verified 08/16/20 16:31 ciprofloxacin HCl Allergy Swelling Verified 08/16/20 16:31 [From Cipro] potassium clavulanate Allergy Swelling Verified 08/16/20 16:31 [From Augmentin] Sulfa (Sulfonamide Allergy Rash/Hives Verified 08/16/20 16:31 Antibiotics) Review of Systems ROS Statement: Those systems with pertinent positive or pertinent negative responses have been documented in the HPI. ROS Other: All systems not noted in ROS Statement are negative. Past Medical History Past Medical History: Atrial Fibrillation, Heart Failure, Diabetes Mellitus, GERD/Reflux, Hyperlipidemia, Hypertension, Osteoarthritis (OA), Pneumonia, Sleep Apnea/CPAP/BIPAP, Thyroid Disorder Additional Past Medical History / Comment(s): lower acute GI bleed/had EGD and colonoscopy without cause found. Other: Cardiac valve disease/aortic regurgitation, mitral valve replacement, moderate to severe pulmonary htn, pt has AICD/pacer, AMANDA with Cpap use, herr's esophagus, "borderline DM", hypo thyroid, arthritis in multiple joints/mostly back pain. History of Any Multi-Drug Resistant Organisms: None Reported Past Surgical History: AICD, Cardiac Valve Replacement, Cholecystectomy, Hernia Repair, Pacemaker Additional Past Surgical History / Comment(s): 02/08/20 EGD and colonoscopy, AICD/pacer with last time replaced in 2018 at [facility], mitral valve replaced, past surgery/bowel resection d/t strangulated hernia Past Anesthesia/Blood Transfusion Reactions: No Reported Reaction Additional Past Anesthesia/Blood Transfusion Reaction / Comment(s): Has become aggressive after surgery. Type of Cardiac Device: Permanent Pacemaker, AICD Device Placement Date:: 2018 last time Past Psychological History: No Psychological Hx Reported Smoking Status: Never smoker Past Alcohol Use History: None Reported Past Drug Use History: None Reported - Past Family History Father Family Medical History: Myocardial Infarction ([place]) Additional Family Medical History / Comment(s): Father had a [place] at the age of 75 yrs. Mother Family Medical History: Osteoarthritis ([place]) General Exam Limitations: no limitations Course Vital Signs 08/16/20 15:51 Temperature 98.4 F Pulse Rate 110 H Respiratory 18 Rate Blood Pressure 111/72 O2 Sat by Pulse 95 Oximetry Procedures - Laceration Laceration #1 Consent Obtained: verbal consent Indication: laceration Site: hand Description: linear (1.5 cm) Depth: simple, single layer Type of Sutures: other (dermabond) Technique: other (dermabond) Patient Tolerated Procedure: well Medical Decision Making - Lab Data Lab Results 08/16/20 08/16/20 Range/Units 16:29 16:29 PT 22.5 H (9.0-12.0) sec INR 2.3 H (<1.2) APTT 31.5 H (22.0-30.0) sec NT-Pro-B Natriuret Pep 1660 pg/mL Disposition Clinical Impression: Head contusion Disposition: HOME SELF-CARE Condition: Good Instructions (If sedation given, give patient instructions): Fall Prevention for Older Adults (ED) Is patient prescribed a controlled substance at d/c from ED?: No Referrals: Rashawn Farah MD [Primary Care Provider] - 1-2 days Time of Disposition: 17:42
[2020-08-16 16:52] LABS: INR 2.3 (<1.2); Partial Thromboplastin Time 31.5 sec (22.0-30.0); Prothrombin Time 22.5 sec (9.0-12.0)
--- NOTE | 2020-08-16 17:23 | XR ---
EXAMINATION TYPE: XR chest 2V DATE OF EXAM: 08/16/2020 COMPARISON: 08/02/2020 HISTORY: Short of breath. Cough. TECHNIQUE: FINDINGS: Heart is enlarged. There is slight blunting of the costophrenic angles. There is left axill reema pacemaker. There are sternal wires. There is cardiac valve surgery. There is mild pulmonary conge stion. IMPRESSION: Mild heart failure with pleural effusions. Heart failure improved compared to old exam.
--- NOTE | 2020-08-16 17:25 | CT ---
EXAMINATION TYPE: CT brain ju wo con DATE OF EXAM: 08/16/2020 COMPARISON: 04/14/2019 HISTORY: Fall injury Pain CT DLP: 1273.7 mGycm Automated exposure control for dose reduction was used. Images obtained of the brain and cervical spine without contrast. There is mild cerebral atrophy. There is patchy hypodensity in the periventricular white matter. Ther e is no mass effect nor midline shift. There is no sign of intracranial hemorrhage. The calvarium is intact. Skull base is intact. Mastoid sinuses appear normal. Occipital bone is intact. The cervical vertebra show mild straightening. There is moderate disc space narrowing from C3 to C7. Posterior elements are intact. The facet joints are intact. There is minimal hypertrophic facet arthr opathy. IMPRESSION: Multilevel cervical spondylotic changes. No fracture. No change. Cerebral atrophy and chronic small vessel ischemia. No acute intracranial abnormality. No change.
[2020-08-16 18:00] VITALS: BP 121/83; PULSE 109
== END 2020-08-16 18:00 | disposition home or self-care (01) ==
LOC: EC 15:49
DX: S61.411A Laceration without foreign body of right hand, initial encounter (principal); S00.11XA Contusion of right eyelid and periocular area, initial encounter; I11.0 Hypertensive heart disease with heart failure; I50.9 Heart failure, unspecified; R06.03 Acute respiratory distress; K21.9 Gastro-esophageal reflux disease without esophagitis; E03.9 Hypothyroidism, unspecified; M19.90 Unspecified osteoarthritis, unspecified site; E78.5 Hyperlipidemia, unspecified; I48.91 Unspecified atrial fibrillation; K22.70 Barrett's esophagus without dysplasia; G47.33 Obstructive sleep apnea (adult) (pediatric); Z79.01 Long term (current) use of anticoagulants; Z79.899 Other long term (current) drug therapy; Z79.82 Long term (current) use of aspirin; Z88.0 Allergy status to penicillin; Z88.1 Allergy status to other antibiotic agents; Z88.2 Allergy status to sulfonamides; Z99.89 Dependence on other enabling machines and devices; Z95.4 Presence of other heart-valve replacement; Z95.810 Presence of automatic (implantable) cardiac defibrillator; W18.09XA Striking against other object with subsequent fall, initial encounter; Y93.01 Activity, walking, marching and hiking; Y92.89 Other specified places as the place of occurrence of the external cause
CPT/HCPCS: 12001; 36415; 70450; 71046; 72125; 83880; 85610; 85730; 93005; 99284

== ENCOUNTER → 2020-08-27 | Outpatient (CLI) | payer MEDICARE ==
--- NOTE | 2020-08-27 14:22 | XR ---
EXAMINATION TYPE: XR chest 2V DATE OF EXAM: 08/27/2020 COMPARISON: Right chest x-ray 08/16/2020 HISTORY: Heart failure TECHNIQUE: Frontal and lateral views of the chest are obtained. FINDINGS: Generators present in left pectoral region, there are leads in the right atrium and ventri marissa, coronary sinus. Heart is enlarged. Patient shows mitral valve replacement change. No evident pne umothorax. Bibasilar densities present with blunting the costophrenic angles. Interstitium is increas ed. Patient is post median sternotomy. Aorta is dense and ectatic. Evidence of old granulomatous dise ase. Patient is rotated. IMPRESSION: Findings suggest interstitial edema, possible basilar effusions. Cardiomegaly and aortic ectasia.
[2020-08-27 14:59] LABS: Albumin 3.5 g/dL (3.5-5.0); Calcium 8.8 mg/dL (8.4-10.2); Magnesium 2.1 mg/dL (1.6-2.3); Potassium 3.6 mmol/L (3.5-5.1); Total Bilirubin 0.5 mg/dL (0.2-1.3)
== END ==
LOC: RADXRMAIN 11:55
PROVIDERS: ATTEND Family Medicine
DX: I50.9 Heart failure, unspecified (principal); I51.7 Cardiomegaly; I77.810 Thoracic aortic ectasia
CPT/HCPCS: 71046; 80053; 83735

== ENCOUNTER 2021-01-23 13:19 | Inpatient (IN) | payer MEDICARE ==
[2021-01-23] MEDS ORDERED: MORPHINE SULFATE 4 MG/ML SYRINGE IV STA (13:42)
[2021-01-23] MEDS ORDERED: SODIUM CHLORIDE 0.9% 1,000 ML IV STA (13:42)
[2021-01-23] MEDS ORDERED: ONDANSETRON 4 MG/2 ML VIAL IVP STA (13:42)
[2021-01-23 14:16] LABS: Basophils % (A) 0 %; Eosinophils # (A) 0.1 k/uL (0-0.7); Eosinophils % (A) 1 %; HCT 38.1 % (34.0-46.0); Hypochromasia Moderate; Lymphocytes # (A) 0.4 k/uL (1.0-4.8); Lymphocytes % (A) 4 %; MCHC 31.6 g/dL (31.0-37.0); MCV 88.9 fL (80.0-100.0); Mean Platelet Volume 7.5; Monocytes # (A) 0.5 k/uL (0-1.0); Monocytes % (A) 5 %; Neutrophils # (A) 8.5 k/uL (1.3-7.7); Neutrophils % (A) 88 %; Platelet Count 257 k/uL (150-450); RBC 4.29 m/uL (3.80-5.40); RDW 15.6 % (11.5-15.5); WBC 9.7 k/uL (3.8-10.6)
[2021-01-23 14:32] LABS: INR 2.3 (<1.2); Partial Thromboplastin Time 32.1 sec (22.0-30.0); Prothrombin Time 22.4 sec (9.0-12.0)
--- NOTE | 2021-01-23 14:50 | ED ---
Abdominal Pain HPI - General Chief Complaint: Abdominal Pain Stated Complaint: Abd pain Time Seen by Provider: 01/23/21 13:28 Source: patient Mode of arrival: EMS Limitations: physical limitation - History of Present Illness Initial Comments: Patient is an 85-year-old female with history of A. fib, diabetes, hypertension, CPOD, presenting to the emergency Department with complaints of abdominal pain and distention that started yesterday. She states she has had multiple abdominal surgeries and has had bowel obstructions in the past. She states she has not had a bowel movement in 4 days which is not abnormal for her. She does take chronic pain meds. She denies any fevers or chills, no chest pain or shortness of breath. She states she has not been passing gas. She describes the pain as all over her abdomen, no specific area. She rates it a 9/10 at this time. She denies any dysuria. She is no further complaints. - Related Data Home Medications Medication Instructions Recorded Confirmed Gabapentin [Neurontin] 200 mg PO TID 10/08/14 08/16/20 Lovastatin [Mevacor] 20 mg PO HS 06/03/17 08/16/20 Aspirin 81 mg PO DAILY 06/06/17 08/16/20 HYDROcodone/APAP 7.5-325MG [[place] 1 tab PO Q8H PRN 03/24/20 08/16/20 7.5-325] Omeprazole 20 mg PO BID 03/24/20 08/16/20 Torsemide [Demadex] 20 mg PO MOWEFR 05/29/20 08/16/20 Metoprolol Succinate (ER) [Toprol 50 mg PO TID 07/25/20 08/16/20 XL] Warfarin Sodium [Jantoven] 2 mg PO HS 01/23/21 01/23/21 Allergies Allergy/AdvReac Type Severity Reaction Status Date / Time amoxicillin trihydrate Allergy Swelling Verified 01/23/21 15:54 [From Augmentin] ciprofloxacin [From Cipro] Allergy Swelling Verified 01/23/21 15:54 ciprofloxacin HCl Allergy Swelling Verified 01/23/21 15:54 [From Cipro] potassium clavulanate Allergy Swelling Verified 01/23/21 15:54 [From Augmentin] Sulfa (Sulfonamide Allergy Rash/Hives Verified 01/23/21 15:54 Antibiotics) Review of Systems ROS Statement: Those systems with pertinent positive or pertinent negative responses have been documented in the HPI. ROS Other: All systems not noted in ROS Statement are negative. Past Medical History Past Medical History: Atrial Fibrillation, Heart Failure, Diabetes Mellitus, GERD/Reflux, Hyperlipidemia, Hypertension, Osteoarthritis (OA), Pneumonia, Sleep Apnea/CPAP/BIPAP, Thyroid Disorder Additional Past Medical History / Comment(s): lower acute GI bleed/had EGD and colonoscopy without cause found. 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 History of Any Multi-Drug Resistant Organisms: None Reported Past Surgical History: AICD, Cardiac Valve Replacement, Cholecystectomy, Hernia Repair, Pacemaker Additional Past Surgical History / Comment(s): 02/08/20 EGD and colonoscopy, AICD/pacer with last time replaced in 2018 at [facility], mitral valve replaced, past surgery/bowel resection d/t strangulated hernia Past Anesthesia/Blood Transfusion Reactions: No Reported Reaction Additional Past Anesthesia/Blood Transfusion Reaction / Comment(s): Has become aggressive after surgery. Type of Cardiac Device: Permanent Pacemaker, AICD Device Placement Date:: 2018 last time Past Psychological History: No Psychological Hx Reported Smoking Status: Never smoker Past Alcohol Use History: None Reported Past Drug Use History: None Reported - Past Family History Father Family Medical History: Myocardial Infarction ([place]) Additional Family Medical History / Comment(s): Father had a [place] at the age of 75 yrs. Mother Family Medical History: Osteoarthritis (OA) General Exam - General Exam Comments Initial Comments: GENERAL: Patient is well-developed and well-nourished. Patient is nontoxic and in mild distress. HEAD: Atraumatic, normocephalic. EYES: Pupils equal round and reactive to light, extraocular movements intact, sclera anicteric, conjunctiva are normal. Eyelids were unremarkable. ENT: TMs normal, nares patent, oropharynx clear without exudates. Moist mucous membranes. NECK: Normal range of motion, supple without lymphadenopathy or JVD. LUNGS: Unlabored respirations. Breath sounds clear to auscultation bilaterally and equal. No wheezes rales or rhonchi. HEART: Regular rate and rhythm without murmurs, rubs or gallops. ABDOMEN: Patient's abdomen is distended, hard, tender all over, hypoactive bowel sounds. No masses appreciated. : Deferred MUSCULOSKELETAL: Normal extremities with adequate strength and normal range of motion, no pitting or edema. No clubbing or cyanosis. NEUROLOGICAL: Patient is alert and oriented x 3. Motor and sensory are also intact. Cranial nerves II through XII grossly intact. Symmetrical smile. Normal speech, normal gait. PSYCH: Normal mood, normal affect. SKIN: Warm, Dry, normal turgor, no rashes or lesions noted. Limitations: physical limitation Course Vital Signs 01/23/21 01/23/21 01/23/21 13:23 14:06 15:27 Temperature 98.5 F Pulse Rate 70 70 70 Respiratory 20 18 18 Rate Blood Pressure 142/76 125/71 O2 Sat by Pulse 91 L 98 98 Oximetry Medical Decision Making - Medical Decision Making Patient is a 85-year-old female with multiple coronary babies, presenting with abdominal pain and distention since yesterday. She has not had a bowel movement in 4 days. This is not abnormal for her. She does take chronic pain medicines. She's had multiple abdominal surgeries and bowel obstructions in the past. Her vitals are within normal limits. And show a stable white count and hemoglobin, INR is 2.3, she is on Coumadin. Kidney function is stable, lactic acid is normal, urine shows no evidence of infection. CT of abdomen and pelvis shows a high-grade small bowel obstruction with transition point at the right lower quadrant. Small bowel loops dilated up to 3.6 cm, anastomosis is also dilated up to 5.9 cm. Adjacent mesenteric edema, likely reactive to obstruction, no free air seen. Patient is given fluids, pain control, she is resting comfortably. Patient will be admitted for small bowel obstruction, patient started by Dr. Martinez, consulted Dr. Rodriguez. Antibiotic started, NG tube will be placed. Case discussed with Dr. Anthony. - Lab Data Result diagrams: 01/23/21 13:57 01/23/21 13:57 Lab Results 01/23/21 01/23/21 01/23/21 Range/Units 13:57 13:57 13:57 WBC 9.7 (3.8-10.6) k/uL RBC 4.29 (3.80-5.40) m/uL Hgb 12.0 (11.4-16.0) gm/dL Hct 38.1 (34.0-46.0) % MCV 88.9 (80.0-100.0) fL MCH 28.0 (25.0-35.0) pg MCHC 31.6 (31.0-37.0) g/dL RDW 15.6 H (11.5-15.5) % Plt Count 257 (150-450) k/uL MPV 7.5 Neutrophils % 88 % Lymphocytes % 4 % Monocytes % 5 % Eosinophils % 1 % Basophils % 0 % Neutrophils # 8.5 H (1.3-7.7) k/uL Lymphocytes # 0.4 L (1.0-4.8) k/uL Monocytes # 0.5 (0-1.0) k/uL Eosinophils # 0.1 (0-0.7) k/uL Basophils # 0.0 (0-0.2) k/uL Hypochromasia Moderate PT 22.4 H (9.0-12.0) sec INR 2.3 H (<1.2) APTT 32.1 H (22.0-30.0) sec Sodium 138 (137-145) mmol/L Potassium 3.7 (3.5-5.1) mmol/L Chloride 103 (98-107) mmol/L Carbon Dioxide 27 (22-30) mmol/L Anion Gap 8 mmol/L BUN 28 H (7-17) mg/dL Creatinine 1.22 H (0.52-1.04) mg/dL Est GFR (CKD-EPI)AfAm 46 (>60 ml/min/1.73 sqM) Est GFR (CKD-EPI)NonAf 40 (>60 ml/min/1.73 sqM) Glucose 131 H (74-99) mg/dL Plasma Lactic Acid Joey (0.7-2.0) mmol/L Calcium 9.1 (8.4-10.2) mg/dL Total Bilirubin 0.7 (0.2-1.3) mg/dL AST 25 (14-36) U/L ALT 10 (4-34) U/L Alkaline Phosphatase 70 (38-126) U/L Total Protein 6.6 (6.3-8.2) g/dL Albumin 3.6 (3.5-5.0) g/dL Amylase 46 (30-110) U/L Lipase 12 L (23-300) U/L Urine Color Urine Appearance (Clear) Urine pH (5.0-8.0) Ur Specific [place] (1.001-1.035) Urine Protein (Negative) Urine Glucose (UA) (Negative) Urine Ketones (Negative) Urine Blood (Negative) Urine Nitrite (Negative) Urine Bilirubin (Negative) Urine Urobilinogen (<2.0) mg/dL Ur Leukocyte Esterase (Negative) 01/23/21 01/23/21 Range/Units 13:57 15:39 WBC (3.8-10.6) k/uL RBC (3.80-5.40) m/uL Hgb (11.4-16.0) gm/dL Hct (34.0-46.0) % MCV (80.0-100.0) fL MCH (25.0-35.0) pg MCHC (31.0-37.0) g/dL RDW (11.5-15.5) % Plt Count (150-450) k/uL MPV Neutrophils % % Lymphocytes % % Monocytes % % Eosinophils % % Basophils % % Neutrophils # (1.3-7.7) k/uL Lymphocytes # (1.0-4.8) k/uL Monocytes # (0-1.0) k/uL Eosinophils # (0-0.7) k/uL Basophils # (0-0.2) k/uL Hypochromasia PT (9.0-12.0) sec INR (<1.2) APTT (22.0-30.0) sec Sodium (137-145) mmol/L Potassium (3.5-5.1) mmol/L Chloride (98-107) mmol/L Carbon Dioxide (22-30) mmol/L Anion Gap mmol/L BUN (7-17) mg/dL Creatinine (0.52-1.04) mg/dL Est GFR (CKD-EPI)AfAm (>60 ml/min/1.73 sqM) Est GFR (CKD-EPI)NonAf (>60 ml/min/1.73 sqM) Glucose (74-99) mg/dL Plasma Lactic Acid Joey 0.8 (0.7-2.0) mmol/L Calcium (8.4-10.2) mg/dL Total Bilirubin (0.2-1.3) mg/dL AST (14-36) U/L ALT (4-34) U/L Alkaline Phosphatase (38-126) U/L Total Protein (6.3-8.2) g/dL Albumin (3.5-5.0) g/dL Amylase (30-110) U/L Lipase (23-300) U/L Urine Color Yellow Urine Appearance Clear (Clear) Urine pH 5.5 (5.0-8.0) Ur Specific [place] 1.018 (1.001-1.035) Urine Protein Negative (Negative) Urine Glucose (UA) Negative (Negative) Urine Ketones Trace H (Negative) Urine Blood Negative (Negative) Urine Nitrite Negative (Negative) Urine Bilirubin Negative (Negative) Urine Urobilinogen 3.0 (<2.0) mg/dL Ur Leukocyte Esterase Negative (Negative) Disposition Clinical Impression: Abdominal pain, Small bowel obstruction Disposition: ADMITTED IP TO THIS [facility] Condition: Stable Decision Date: 01/23/21 Decision Time: 16:08
[2021-01-23 14:56] LABS: Albumin 3.6 g/dL (3.5-5.0); Calcium 9.1 mg/dL (8.4-10.2); Potassium 3.7 mmol/L (3.5-5.1); Total Bilirubin 0.7 mg/dL (0.2-1.3); Total Protein 6.6 g/dL (6.3-8.2)
--- NOTE | 2021-01-23 15:33 | CT ---
EXAMINATION TYPE: CT abdomen pelvis wo con DATE OF EXAM: 01/23/2021 COMPARISON: 07/25/2020 HISTORY: 85-year-old female Upper abdominal pain with nausea CT DLP: 381.9 mGycm. Automated exposure control for dose reduction was used. TECHNIQUE: Contiguous axial scanning of the abdomen and pelvis without IV contrast. Coronal and sagit ezra reconstructions performed. FINDINGS: Generalized anasarca change. Median sternotomy wires. Mitral annular calcifications. Pacer leads. Heart mildly enlarged without pe ricardial effusion. Prominent dependent atelectasis and additional bandlike opacity suggesting atelec tasis. There may be mild septal lines raising the possibility of mild pulmonary vascular congestion. Mild abdominopelvic ascites. The ascites fluid extends through a small right inguinal canal. Cholecystectomy clips. Adrenal glands, kidneys, spleen, and atrophic pancreas show no gross abnormality. Moderate atherosclerotic calcifications abdominal aorta without aneurysm. Surgical material left paramedian lower abdomen from prior bowel surgery. There is fecalized small bowel in the right lower quadrant with distention up to 3.6 cm and suspected transition point here, axial images 69 and coronal image 44 Portions of a normal appendix are visualized. Adjacent mesenteric edema. Moderate stool burden. Sigmoid diverticulosis. Bladder partially distended. Uterus appears retroverted with rounded prominence measuring up to 6.1 c m, possible underlying fibroid change, stable from 01/07/2017. Facet arthropathy mid to lower lumbar spine. Advanced degenerative disc disease L2-L3, L4-L5, L5-S1. Grade 1 anterolisthesis L4-L5. Hypertrophic facet arthropathy is noted. Grade 1 retrolisthesis L2-L3 IMPRESSION: 1. Suspect a high-grade small bowel obstruction with transition point located at the right lower quad rant. Small bowel loops dilated up to 3.6 cm. Previous surgery with small bowel anastomosis left lowe r quadrant. The anastomosis is also dilated up to 5.9 cm. 2. Adjacent mesenteric edema, likely reactive to the obstruction. No free air seen. However, there is new mild to moderate abdominopelvic ascites. 3. Sigmoid diverticulosis. Stable bulky appearance to the uterus, possibly a fibroid change.
[2021-01-23 15:48] LABS: Appearance,Urine Clear (Clear); Bilirubin,Urine Negative (Negative); Blood,Urine Negative (Negative); Color,Urine Yellow; Glucose,Urine (UA) Negative (Negative); Ketones,Urine Trace (Negative); Leukocyte Esterase,Urine Negative (Negative); Nitrite,Urine Negative (Negative); PH, Urine 5.5 (5.0-8.0); Protein,Urine Negative (Negative); Specific Gravity,Urine 1.018 (1.001-1.035)
[2021-01-23] MEDS ORDERED: ONDANSETRON 4 MG/2 ML VIAL IVP PRN (16:02)
[2021-01-23] MEDS ORDERED: NALOXONE 0.4 MG/ML 1 ML VIAL IV PRN (16:02)
[2021-01-23] MEDS ORDERED: PIPERACILLIN-TAZOBACTAM 3.375 GM in SODIUM CHLORIDE 0.9% 100 ML IVPB STA (16:05)
[2021-01-23] MEDS: SODIUM CHLORIDE 0.9% 1,000 ML IV SCH (16:22)
[2021-01-23 17:03] LABS: Glucose,Whole Blood 120 mg/dL (75-99)
[2021-01-23] MEDS: INSULIN ASPART (NovoLOG) 100 UNIT/ML VIAL SQ SCH ×2 (17:25→20:35)
--- NOTE | 2021-01-23 18:04 | P.GSCN ---
History of Present Illness Consult date: 01/23/21 Reason for Consult: Bowel obstruction History of present illness: 85-year-old female admitted to the hospital with bowel obstruction. Patient with history of previous bowel obstruction etiology small bowel stricture during the laparotomy and small bowel resection in June of this year by Dr. Oliver. Patient states she started having abdominal pain a few days ago. She states she has not been passing gas. Last bowel movement on Tuesday which she states is not uncommon given her history of constipation. No vomiting. She does feel bloated. She says this reminds her of previous bowel obstructions she has had. CAT scan was performed which suggests small bowel obstruction transition point right lower quadrant. There is a fair amount of air and liquid within the colon however. White blood cell count normal at 9.7, INR 2.3. Brady carter takes Coumadin for previous mitral valve replacement, AICD, A. fib. Patient had nasogastric tube placed. Some relief per patient. Review of Systems The patient denies any acute changes in vision or hearing, no dysphagia or odynophagia, no chest pain or shortness of breath, no dysuria or hematuria, no headache, no runny nose, no rectal bleeding or melena, no unexplained weight loss Past Medical History Past Medical History: Atrial Fibrillation, Heart Failure, Diabetes Mellitus, Hyperlipidemia, Hypertension, Osteoarthritis (OA), Pneumonia, Sleep Apnea/CPAP/BIPAP, Thyroid Disorder Additional Past Medical History / Comment(s): lower acute GI bleed/had EGD and colonoscopy without cause found. 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 History of Any Multi-Drug Resistant Organisms: None Reported Past Surgical History: AICD, Cardiac Valve Replacement, Cholecystectomy, Hernia Repair, Pacemaker Additional Past Surgical History / Comment(s): 02/08/20 EGD and colonoscopy, AICD/pacer with last time replaced in 2018 at [facility], mitral valve replaced, past surgery/bowel resection d/t strangulated hernia Past Anesthesia/Blood Transfusion Reactions: No Reported Reaction Additional Past Anesthesia/Blood Transfusion Reaction / Comm: Has become aggressive after surgery. Type of Cardiac Device: Permanent Pacemaker, AICD Device Placement Date:: 2018 last time Past Psychological History: No Psychological Hx Reported Additional Psychological History / Comment(s): Pt resides with her jessi and her family. She uses a cane or walker to ambulate. She no longer drives, her family can take her to [employer]. Smoking Status: Never smoker Past Alcohol Use History: None Reported Past Drug Use History: None Reported - Past Family History Father Family Medical History: Myocardial Infarction (WA) Additional Family Medical History / Comment(s): Father had a WA at the age of 75 yrs. Mother Family Medical History: Osteoarthritis (OA) Medications and Allergies Home Medications Medication Instructions Recorded Confirmed Type Gabapentin [Neurontin] 200 mg PO TID 10/08/14 01/23/21 History Lovastatin [Mevacor] 20 mg PO HS 06/03/17 01/23/21 History Aspirin 81 mg PO DAILY 06/06/17 01/23/21 History HYDROcodone/APAP 7.5-325MG [[place] 1 tab PO Q8H PRN 03/24/20 01/23/21 History 7.5-325] Omeprazole 20 mg PO DAILY 03/24/20 01/23/21 History Torsemide [Demadex] 10 mg PO DAILY 05/29/20 01/23/21 History Metoprolol Succinate (ER) [Toprol 25 mg PO BID 07/25/20 01/23/21 History XL] Amiodarone HCl [Pacerone] 200 mg PO DAILY 01/23/21 01/23/21 History Calcium Polycarbophil [Fiber-Lax] 1,875 mg PO BID 01/23/21 01/23/21 History Esomeprazole Magnesium [NexIUM 40 mg PO BID PRN 01/23/21 01/23/21 History 24Hr] Levothyroxine Sodium [Synthroid] 50 mcg PO DAILY 01/23/21 01/23/21 History Sennosides [Senna] 8.6 mg PO DAILY 01/23/21 01/23/21 History Sildenafil [Revatio] 20 mg PO TID 01/23/21 01/23/21 History Warfarin Sodium [Jantoven] 2 mg PO HS 01/23/21 01/23/21 History metOLazone [Zaroxolyn] 2.5 mg PO DAILY PRN 01/23/21 01/23/21 History Allergies Allergy/AdvReac Type Severity Reaction Status Date / Time amoxicillin trihydrate Allergy Swelling Verified 01/23/21 15:54 [From Augmentin] ciprofloxacin [From Cipro] Allergy Swelling Verified 01/23/21 15:54 ciprofloxacin HCl Allergy Swelling Verified 01/23/21 15:54 [From Cipro] potassium clavulanate Allergy Swelling Verified 01/23/21 15:54 [From Augmentin] Sulfa (Sulfonamide Allergy Rash/Hives Verified 01/23/21 15:54 Antibiotics) Surgical - Exam Vital Signs Temp Pulse Resp Pulse Ox 98.5 F 70 20 91 L 01/23/21 13:23 01/23/21 13:23 01/23/21 13:23 01/23/21 13:23 Physical exam: General: Well-developed, well-nourished HEENT: Normocephalic, sclerae nonicteric Abdomen: Prior scars noted, mild distention, mild diffuse tenderness Extremities: No edema Neuro: Alert and oriented Results - Labs 01/23/21 13:57 01/23/21 13:57 Abnormal Lab Results - Last 24 Hours (Table) 01/23/21 01/23/21 01/23/21 Range/Units 13:57 13:57 13:57 RDW 15.6 H (11.5-15.5) % Neutrophils # 8.5 H (1.3-7.7) k/uL Lymphocytes # 0.4 L (1.0-4.8) k/uL PT 22.4 H (9.0-12.0) sec INR 2.3 H (<1.2) APTT 32.1 H (22.0-30.0) sec BUN 28 H (7-17) mg/dL Creatinine 1.22 H (0.52-1.04) mg/dL Glucose 131 H (74-99) mg/dL POC Glucose (mg/dL) (75-99) mg/dL Lipase 12 L (23-300) U/L Urine Ketones (Negative) 01/23/21 01/23/21 Range/Units 15:39 17:01 RDW (11.5-15.5) % Neutrophils # (1.3-7.7) k/uL Lymphocytes # (1.0-4.8) k/uL PT (9.0-12.0) sec INR (<1.2) APTT (22.0-30.0) sec BUN (7-17) mg/dL Creatinine (0.52-1.04) mg/dL Glucose (74-99) mg/dL POC Glucose (mg/dL) 120 H (75-99) mg/dL Lipase (23-300) U/L Urine Ketones Trace H (Negative) Diabetes panel 01/23/21 Range/Units 13:57 Sodium 138 (137-145) mmol/L Potassium 3.7 (3.5-5.1) mmol/L Chloride 103 (98-107) mmol/L Carbon Dioxide 27 (22-30) mmol/L BUN 28 H (7-17) mg/dL Creatinine 1.22 H (0.52-1.04) mg/dL Glucose 131 H (74-99) mg/dL Calcium 9.1 (8.4-10.2) mg/dL AST 25 (14-36) U/L ALT 10 (4-34) U/L Alkaline Phosphatase 70 (38-126) U/L Total Protein 6.6 (6.3-8.2) g/dL Albumin 3.6 (3.5-5.0) g/dL Calcium panel 01/23/21 Range/Units 13:57 Calcium 9.1 (8.4-10.2) mg/dL Albumin 3.6 (3.5-5.0) g/dL Pituitary panel 01/23/21 Range/Units 13:57 Sodium 138 (137-145) mmol/L Potassium 3.7 (3.5-5.1) mmol/L Chloride 103 (98-107) mmol/L Carbon Dioxide 27 (22-30) mmol/L BUN 28 H (7-17) mg/dL Creatinine 1.22 H (0.52-1.04) mg/dL Glucose 131 H (74-99) mg/dL Calcium 9.1 (8.4-10.2) mg/dL Adrenal panel 01/23/21 Range/Units 13:57 Sodium 138 (137-145) mmol/L Potassium 3.7 (3.5-5.1) mmol/L Chloride 103 (98-107) mmol/L Carbon Dioxide 27 (22-30) mmol/L BUN 28 H (7-17) mg/dL Creatinine 1.22 H (0.52-1.04) mg/dL Glucose 131 H (74-99) mg/dL Calcium 9.1 (8.4-10.2) mg/dL Total Bilirubin 0.7 (0.2-1.3) mg/dL AST 25 (14-36) U/L ALT 10 (4-34) U/L Alkaline Phosphatase 70 (38-126) U/L Total Protein 6.6 (6.3-8.2) g/dL Albumin 3.6 (3.5-5.0) g/dL Assessment and Plan (1) Small bowel obstruction Narrative/Plan: 85-year-old female with small bowel obstruction likely on the basis of adhesions . Keep nothing by mouth with nasogastric tube to suction. Hold Coumadin for now. May start heparin drip if necessary. Repeat abdominal x-rays tomorrow. Will follow. Current Visit: Yes Status: Acute Code(s): K56.69 - OTHER INTESTINAL OBSTRUCTION * DO NOT USE * SNOMED Code(s): 753507409
[2021-01-23] MEDS: MORPHINE SULFATE 4 MG/ML SYRINGE IV PRN (19:23)
[2021-01-23 20:39] LABS: Glucose,Whole Blood 119 mg/dL (75-99)
--- NOTE | 2021-01-24 00:16 | P.HPIM ---
History of Present Illness H&P Date: 01/23/21 Chief Complaint: Abdominal distention Patient is a 85-year-old female with a known history of paroxysmal atrial fibrillation, anticoagulation with Coumadin, history of mitral valve replacement, moderate to severe pulmonary hypertension, hypothyroidism, diabetes type 2, obstructive sleep apnea, history of AICD placement and other multiple medical problems presents to ER with complaints of abdominal pain and distention started since yesterday. Patient did have prior history of bowel obstruction and had multiple abdominal surgeries. Patient has not had any bowel movement for the past 4 days. Denied any complaints of diarrhea prior to constipation. No fever no chills. No complaints of chest pain or shortness of breath. Patient has not been passing flatus. CT of the abdomen pelvis showed suspected high-grade small bowel obstruction with transition point located at the right lower quadrant. Small bowel bowel loops dilated up to 3.6 cm. Previous surgery with small bowel anastomosis left lower quadrant. The anastomosis is also dilated up to 5.9 cm. Adjacent mesenteric edema likely reactive to the obstruction. No free air is seen. However there is new mild to moderate abdominopelvic ascites. Sigmoid diverticulosis. Laboratory data showed WBC 9.7 hemoglobin 12.0 and platelets 257 INR 2.3 sodium 138 potassium 3.7 chloride 103 BUN 28 and creatinine 1.22 liver enzymes are not elevated UA negative for infection Review of Systems Constitutional: Patient denies any fever or chills . No generalized weakness or weight loss. Abdomen: Patient does have abdominal pain distention and lack of bowel movement. No diarrhea.. Cardiovascular: Patient denies any chest pain or short of breath no palpitations. Respiratory: patient denied any cough or sputum production. No shortness of breath Neurologic: Patient denied any numbness or tingling headache. Musculoskeletal: Patient denies any complaints of joint swelling or deformity. Skin: Negative Psychiatric: Negative Endocrine: No heat or cold intolerance. No recent weight gain. Genitourinary: No dysuria or hematuria. All other 14 point ROS negative except the above Past Medical History Past Medical History: Atrial Fibrillation, Heart Failure, Diabetes Mellitus, Hyperlipidemia, Hypertension, Osteoarthritis (OA), Pneumonia, Sleep Apnea/CPAP/BIPAP, Thyroid Disorder Additional Past Medical History / Comment(s): lower acute GI bleed/had EGD and colonoscopy without cause found. 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 History of Any Multi-Drug Resistant Organisms: None Reported Past Surgical History: AICD, Cardiac Valve Replacement, Cholecystectomy, Hernia Repair, Pacemaker Additional Past Surgical History / Comment(s): 02/08/20 EGD and colonoscopy, AICD/pacer with last time replaced in 2018 at [facility], mitral valve replaced, past surgery/bowel resection d/t strangulated hernia Past Anesthesia/Blood Transfusion Reactions: No Reported Reaction Additional Past Anesthesia/Blood Transfusion Reaction / Comment(s): Has become aggressive after surgery. Type of Cardiac Device: Permanent Pacemaker, AICD Device Placement Date:: 2018 last time Past Psychological History: No Psychological Hx Reported Additional Psychological History / Comment(s): Pt resides with her jessi and her family. She uses a cane or walker to ambulate. She no longer drives, her family can take her to appts. Smoking Status: Never smoker Past Alcohol Use History: None Reported Past Drug Use History: None Reported - Past Family History Father Family Medical History: Myocardial Infarction (WA) Additional Family Medical History / Comment(s): Father had a WA at the age of 75 yrs. Mother Family Medical History: Osteoarthritis (OA) Medications and Allergies Home Medications Medication Instructions Recorded Confirmed Type Gabapentin [Neurontin] 200 mg PO TID 10/08/14 01/23/21 History Lovastatin [Mevacor] 20 mg PO HS 06/03/17 01/23/21 History Aspirin 81 mg PO DAILY 06/06/17 01/23/21 History HYDROcodone/APAP 7.5-325MG [[place] 1 tab PO Q8H PRN 03/24/20 01/23/21 History 7.5-325] Omeprazole 20 mg PO DAILY 03/24/20 01/23/21 History Torsemide [Demadex] 10 mg PO DAILY 05/29/20 01/23/21 History Metoprolol Succinate (ER) [Toprol 25 mg PO BID 07/25/20 01/23/21 History XL] Amiodarone HCl [Pacerone] 200 mg PO DAILY 01/23/21 01/23/21 History Calcium Polycarbophil [Fiber-Lax] 1,875 mg PO BID 01/23/21 01/23/21 History Esomeprazole Magnesium [NexIUM 40 mg PO BID PRN 01/23/21 01/23/21 History 24Hr] Levothyroxine Sodium [Synthroid] 50 mcg PO DAILY 01/23/21 01/23/21 History Sennosides [Senna] 8.6 mg PO DAILY 01/23/21 01/23/21 History Sildenafil [Revatio] 20 mg PO TID 01/23/21 01/23/21 History Warfarin Sodium [Jantoven] 2 mg PO HS 01/23/21 01/23/21 History metOLazone [Zaroxolyn] 2.5 mg PO DAILY PRN 01/23/21 01/23/21 History Allergies Allergy/AdvReac Type Severity Reaction Status Date / Time amoxicillin trihydrate Allergy Swelling Verified 01/23/21 15:54 [From Augmentin] ciprofloxacin [From Cipro] Allergy Swelling Verified 01/23/21 15:54 ciprofloxacin HCl Allergy Swelling Verified 01/23/21 15:54 [From Cipro] potassium clavulanate Allergy Swelling Verified 01/23/21 15:54 [From Augmentin] Sulfa (Sulfonamide Allergy Rash/Hives Verified 01/23/21 15:54 Antibiotics) Physical Exam Vitals: Vital Signs Temp Pulse Pulse Resp BP BP Pulse Ox 01/23/21 20:00 97.9 F 70 18 119/68 95 01/23/21 19:15 18 01/23/21 16:18 71 18 137/67 93 L 01/23/21 15:27 70 18 125/71 98 01/23/21 14:06 70 18 142/76 98 01/23/21 13:23 98.5 F 70 20 91 L Intake and Output 01/23/21 01/23/21 01/24/21 14:59 22:59 06:59 Other: Voiding Method Bedside Commode Weight 68.492 kg 68.492 kg PHYSICAL EXAMINATION: Patient is lying in the bed comfortably, no acute distress, awake alert and oriented.. HEENT: Normocephalic. Neck is supple. Pupils reactive. Nostrils clear. Oral cavity is moist. Neck reveals no JVD, carotid bruits, or thyromegaly. CHEST EXAMINATION: Trachea is central. Symmetrical expansion. Lung baca clear to auscultation and percussion. CARDIAC: Normal S1, S2 with no gallops. + murmur ABDOMEN: Abdomen is soft but distended. Bowel sounds are diminished. No guarding or rigidity.. Extremities: reveal no edema. No clubbing or cyanosis Neurologically awake, alert, oriented x3 with well-coordinated movements. No focal deficits noted Skin: No rash or skin lesions. Psychiatric: Coperative. Nonsuicidal Musculoskeletal: No joint swelling or deformity. Normal range of motion. Results CBC & Chem 7: 01/24/21 06:09 01/24/21 06:09 Labs: Abnormal Lab Results - Last 24 Hours (Table) 01/23/21 01/23/21 01/23/21 Range/Units 13:57 13:57 13:57 RDW 15.6 H (11.5-15.5) % Neutrophils # 8.5 H (1.3-7.7) k/uL Lymphocytes # 0.4 L (1.0-4.8) k/uL PT 22.4 H (9.0-12.0) sec INR 2.3 H (<1.2) APTT 32.1 H (22.0-30.0) sec BUN 28 H (7-17) mg/dL Creatinine 1.22 H (0.52-1.04) mg/dL Glucose 131 H (74-99) mg/dL POC Glucose (mg/dL) (75-99) mg/dL Lipase 12 L (23-300) U/L Urine Ketones (Negative) 01/23/21 01/23/21 01/23/21 Range/Units 15:39 17:01 20:34 RDW (11.5-15.5) % Neutrophils # (1.3-7.7) k/uL Lymphocytes # (1.0-4.8) k/uL PT (9.0-12.0) sec INR (<1.2) APTT (22.0-30.0) sec BUN (7-17) mg/dL Creatinine (0.52-1.04) mg/dL Glucose (74-99) mg/dL POC Glucose (mg/dL) 120 H 119 H (75-99) mg/dL Lipase (23-300) U/L Urine Ketones Trace H (Negative) Thrombosis Risk Factor Assmnt - DVT/VTE Prophylaxis DVT/VTE Prophylaxis: Pharmacologic Prophylaxis ordered, Mechanical Prophylaxis o rdered - Choose All That Apply Any of the Below Risk Factors Present?: Yes Each Risk Factor Represents 2 Points: Patient confined to bed Each Risk Factor Represents 3 Points: Age 75 years or older Thrombosis Risk Factor Assessment Total Risk Factor Score: 5 Thrombosis Risk Factor Assessment Level: High Risk Assessment and Plan Assessment: Acute small bowel obstruction likely due to adhesions from previous surgeries. Previous history of multiple abdominal surgeries and bowel obstructions. History of mitral valve replacement History of AICD placement Aortic regurgitation Moderate to severe pulmonary hypertension Hypothyroidism Obstructive sleep apnea on CPAP at home Hypertension Hyperlipidemia Osteoarthritis DVT prophylaxis patient is on Coumadin Plan: Patient be continued on IV hydration and symptomatic management and conservative therapy at this time. General surgery was consulted. Aspirin Coumadin is on hold for possible surgical exploration. Continue with home medications and replace electrolytes. Prognosis guarded at this time. Time with Patient: Greater than 30
[2021-01-24] MEDS: MORPHINE SULFATE 4 MG/ML SYRINGE IV PRN ×4 (00:41→23:35)
[2021-01-24] MEDS: SODIUM CHLORIDE 0.9% 1,000 ML IV SCH ×2 (01:50→12:42)
[2021-01-24] MEDS: LEVOTHYROXINE 50 MCG TAB PO SCH (05:26)
[2021-01-24] MEDS: METOPROLOL SUCCINATE (ER) 25 MG TAB.ER.24H PO SCH ×2 (07:32→21:14)
[2021-01-24] MEDS: SILDENAFIL 20 MG TAB PO SCH ×3 (07:32→21:14)
[2021-01-24] MEDS: PANTOPRAZOLE 40 MG TABLET PO SCH (07:32)
[2021-01-24] MEDS: AMIODARONE 200 MG TAB PO SCH (07:32)
[2021-01-24] MEDS: GABAPENTIN 100 MG CAP PO SCH ×3 (07:32→21:14)
[2021-01-24] MEDS: INSULIN ASPART (NovoLOG) 100 UNIT/ML VIAL SQ SCH ×4 (07:33→21:40)
[2021-01-24 07:34] LABS: Glucose,Whole Blood 123 mg/dL (75-99)
--- NOTE | 2021-01-24 07:36 | XR ---
Abdomen. HISTORY: Abdominal pain and distention. COMPARISON: None. TECHNIQUE: Supine and upright views the abdomen were obtained. FINDINGS: There is infiltrate in the left lung base. There is no free intraperitoneal air. There is an NG tube within the stomach. There is a marked amount of stool in the right colon. The bowel loops are normal in caliber and there is no evidence of obstruction. Right upper quadrant metallic clips consistent with cholecystectomy The osseous structures are intact IMPRESSION: Nonspecific abdomen without evidence of free air or obstruction. There is an NG tube within the stoma ch. Cholecystectomy
[2021-01-24 09:21] LABS: Basophils # (A) 0.01 X 10*3/uL (0.00-0.10); Basophils % (A) 0.1 %; Eosinophils # (A) 0.01 X 10*3/uL (0.04-0.35); Eosinophils % (A) 0.1 %; HCT 34.3 % (37.2-46.3); HGB 10.2 g/dL (12.0-15.0); Lymphocytes # (A) 0.29 X 10*3/uL (0.90-5.00); Lymphocytes % (A) 2.8 %; MCH 27.1 pg (27.0-32.0); MCHC 29.7 g/dL (32.0-37.0); Mean Platelet Volume 10.1 fL (9.5-12.2); Monocytes # (A) 0.71 X 10*3/uL (0.20-1.00); Neutrophils # (A) 9.14 X 10*3/uL (1.80-7.70); Neutrophils % (A) 89.7 %; Platelet Count 255 X 10*3/uL (140-440); RBC 3.77 X 10*6/uL (4.10-5.20); RDW 16.5 % (11.5-14.5); WBC 10.19 X 10*3/uL (4.50-10.00)
[2021-01-24 10:51] LABS: African American GFR (CKD) 47.4 (60.0-200.0); Anion Gap 12.3 mmol/L (4.00-12.00); BUN/Creat Ratio 23.33 Ratio (12.00-20.00); Calcium 8.2 mg/dL (8.7-10.3); Carbon Dioxide 25.7 mmol/L (21.6-31.8); Non-African American GFR(CKD) 40.9 (60.0-200.0); Potassium 3.5 mmol/L (3.5-5.5)
--- NOTE | 2021-01-24 10:58 | P.PN ---
Subjective Progress Note Date: 01/24/21 Principal diagnosis: Small bowel obstruction Patient is doing better today. Pain is less. She is still asking for pain medications however. No bowel function however. Nasogastric tube output is minimal. Today's x-rays. Improved. Objective - Vital Signs Vital signs: Vital Signs Temp 98.5 F 01/24/21 08:00 Pulse 70 01/24/21 08:00 Resp 18 01/24/21 08:00 BP 101/60 01/24/21 08:00 Pulse Ox 93 L 01/24/21 08:50 Intake & Output 01/23/21 01/24/21 01/24/21 18:59 06:59 18:59 Intake Total 1300 Output Total 200 Balance 1300 -200 Weight 68.492 kg Intake: Intake, IV Titration 1300 Amount Piperacillin-Tazobactam 3 100 .375 gm In Sodium Chloride 0.9% 100 ml @ 200 mls/hr IVPB ONCE STA Rx#:[id number] Sodium Chloride 0.9% 1, 1200 000 ml @ 100 mls/hr IV . Q10H [facility] Rx#:[id number] Output: Gastric Drainage 200 Other: Voiding Method Bedside Commode # Voids 0 - Exam Abdomen: Soft, distended, mild lower abdominal tenderness - Labs CBC & Chem 7: 01/24/21 06:09 01/24/21 06:09 Labs: Abnormal Lab Results - Last 24 Hours (Table) 01/23/21 01/23/21 01/23/21 Range/Units 13:57 13:57 13:57 WBC (4.50-10.00) X 10*3/uL RBC (4.10-5.20) X 10*6/uL Hgb (12.0-15.0) g/dL Hct (37.2-46.3) % MCHC (32.0-37.0) g/dL RDW 15.6 H (11.5-15.5) % Neutrophils # 8.5 H (1.3-7.7) k/uL Lymphocytes # 0.4 L (1.0-4.8) k/uL Eosinophils # (0.04-0.35) X 10*3/uL PT 22.4 H (9.0-12.0) sec INR 2.3 H (<1.2) APTT 32.1 H (22.0-30.0) sec Anion Gap (4.00-12.00) mmol/L BUN 28 H (7-17) mg/dL Creatinine 1.22 H (0.52-1.04) mg/dL Est GFR (CKD-EPI)AfAm (60.0-200.0) Est GFR (CKD-EPI)NonAf (60.0-200.0) BUN/Creatinine Ratio (12.00-20.00) Ratio Glucose 131 H (74-99) mg/dL POC Glucose (mg/dL) (75-99) mg/dL Calcium (8.7-10.3) mg/dL Lipase 12 L (23-300) U/L Urine Ketones (Negative) 01/23/21 01/23/21 01/23/21 Range/Units 15:39 17:01 20:34 WBC (4.50-10.00) X 10*3/uL RBC (4.10-5.20) X 10*6/uL Hgb (12.0-15.0) g/dL Hct (37.2-46.3) % MCHC (32.0-37.0) g/dL RDW (11.5-15.5) % Neutrophils # (1.3-7.7) k/uL Lymphocytes # (1.0-4.8) k/uL Eosinophils # (0.04-0.35) X 10*3/uL PT (9.0-12.0) sec INR (<1.2) APTT (22.0-30.0) sec Anion Gap (4.00-12.00) mmol/L BUN (7-17) mg/dL Creatinine (0.52-1.04) mg/dL Est GFR (CKD-EPI)AfAm (60.0-200.0) Est GFR (CKD-EPI)NonAf (60.0-200.0) BUN/Creatinine Ratio (12.00-20.00) Ratio Glucose (74-99) mg/dL POC Glucose (mg/dL) 120 H 119 H (75-99) mg/dL Calcium (8.7-10.3) mg/dL Lipase (23-300) U/L Urine Ketones Trace H (Negative) 01/24/21 01/24/21 01/24/21 Range/Units 06:09 06:09 07:32 WBC 10.19 H (4.50-10.00) X 10*3/uL RBC 3.77 L (4.10-5.20) X 10*6/uL Hgb 10.2 L (12.0-15.0) g/dL Hct 34.3 L (37.2-46.3) % MCHC 29.7 L (32.0-37.0) g/dL RDW 16.5 H (11.5-15.5) % Neutrophils # 9.14 H (1.3-7.7) k/uL Lymphocytes # 0.29 L (1.0-4.8) k/uL Eosinophils # 0.01 L (0.04-0.35) X 10*3/uL PT (9.0-12.0) sec INR (<1.2) APTT (22.0-30.0) sec Anion Gap 12.30 H (4.00-12.00) mmol/L BUN 28.0 H (7-17) mg/dL Creatinine (0.52-1.04) mg/dL Est GFR (CKD-EPI)AfAm 47.4 L (60.0-200.0) Est GFR (CKD-EPI)NonAf 40.9 L (60.0-200.0) BUN/Creatinine Ratio 23.33 H (12.00-20.00) Ratio Glucose 123 H (74-99) mg/dL POC Glucose (mg/dL) 123 H (75-99) mg/dL Calcium 8.2 L (8.7-10.3) mg/dL Lipase (23-300) U/L Urine Ketones (Negative) Assessment and Plan (1) Small bowel obstruction Narrative/Plan: Overall patient seems to be slowly improving. Keep nasogastric tube to suction. Increase activity as tolerated. Monitor patient's symptoms of pain. Patient's daughter Tabatha was contacted by phone and updated. Current Visit: Yes Status: Acute Code(s): K56.69 - OTHER INTESTINAL OBSTRUCTION * DO NOT USE * SNOMED Code(s): 925373633
[2021-01-24 11:33] LABS: Glucose,Whole Blood 111 mg/dL (75-99)
[2021-01-24 16:32] LABS: Glucose,Whole Blood 103 mg/dL (75-99)
[2021-01-24] MEDS: ATORVASTATIN 10 MG TAB PO SCH (21:14)
[2021-01-24 21:22] LABS: Glucose,Whole Blood 93 mg/dL (75-99)
[2021-01-25] MEDS: LEVOTHYROXINE 50 MCG TAB PO SCH (04:54)
[2021-01-25 07:00] LABS: Glucose,Whole Blood 86 mg/dL (75-99)
[2021-01-25] MEDS: INSULIN ASPART (NovoLOG) 100 UNIT/ML VIAL SQ SCH ×4 (08:27→19:51)
[2021-01-25] MEDS: SILDENAFIL 20 MG TAB PO SCH ×3 (08:37→20:48)
[2021-01-25] MEDS: AMIODARONE 200 MG TAB PO SCH (08:37)
[2021-01-25] MEDS: PANTOPRAZOLE 40 MG TABLET PO SCH (08:37)
[2021-01-25] MEDS: METOPROLOL SUCCINATE (ER) 25 MG TAB.ER.24H PO SCH ×2 (08:37→20:47)
[2021-01-25] MEDS: GABAPENTIN 100 MG CAP PO SCH ×3 (08:37→20:47)
[2021-01-25] MEDS: SODIUM CHLORIDE 0.9% 1,000 ML IV SCH (08:38)
--- NOTE | 2021-01-25 10:50 | P.PN ---
Subjective Progress Note Date: 01/25/21 Principal diagnosis: Small bowel obstruction Patient had flatus. Still having mild right lower abdominal pain. Feels bloated still. Nasogastric tube with minimal output. Objective - Vital Signs Vital signs: Vital Signs Temp 97.9 F 01/25/21 08:00 Pulse 70 01/25/21 08:00 Resp 16 01/25/21 08:00 BP 147/73 01/25/21 08:00 Pulse Ox 93 L 01/25/21 08:00 Intake & Output 01/24/21 01/25/21 01/25/21 18:59 06:59 18:59 Intake Total 600 Output Total 250 50 Balance -250 600 -50 Intake: Intake, IV Titration 600 Amount Sodium Chloride 0.9% 1, 600 000 ml @ 50 mls/hr IV . Q20H [facility] Rx#:[id number] Output: Gastric Drainage 250 50 Other: Voiding Method Bedside Commode # Voids 1 2 - Exam abdomen: Soft, mild distention, mild right lower quadrant tenderness - Labs CBC & Chem 7: 01/24/21 06:09 01/24/21 06:09 Labs: Abnormal Lab Results - Last 24 Hours (Table) 01/24/21 01/24/21 01/24/21 Range/Units 06:09 11:32 16:30 Anion Gap 12.30 H (4.00-12.00) mmol/L BUN 28.0 H (9.0-27.0) mg/dL Est GFR (CKD-EPI)AfAm 47.4 L (60.0-200.0) Est GFR (CKD-EPI)NonAf 40.9 L (60.0-200.0) BUN/Creatinine Ratio 23.33 H (12.00-20.00) Ratio Glucose 123 H (70-110) mg/dL POC Glucose (mg/dL) 111 H 103 H (75-99) mg/dL Calcium 8.2 L (8.7-10.3) mg/dL Assessment and Plan (1) Small bowel obstruction Narrative/Plan: Clinically patient is improved however I'm not convinced the obstruction is completely resolved. We'll order small bowel series for tomorrow. Keep nothing by mouth. Keep nasogastric tube for now. Current Visit: Yes Status: Acute Code(s): K56.69 - OTHER INTESTINAL OBSTRUCTION * DO NOT USE * SNOMED Code(s): 593740919
[2021-01-25 11:54] LABS: Glucose,Whole Blood 95 mg/dL (75-99)
[2021-01-25] MEDS: MORPHINE SULFATE 4 MG/ML SYRINGE IV PRN ×2 (11:59→18:10)
[2021-01-25] MEDS: HEPARIN SOD,PORK IN 0.45% NACL 25,000 UNIT in 0.45% NACL 1 250ML.BAG IV SCH (12:57)
[2021-01-25 16:55] LABS: Glucose,Whole Blood 95 mg/dL (75-99)
[2021-01-25 19:52] LABS: Glucose,Whole Blood 90 mg/dL (75-99)
[2021-01-25] MEDS: ATORVASTATIN 10 MG TAB PO SCH (20:47)
--- NOTE | 2021-01-26 00:20 | P.PN ---
Subjective Progress Note Date: 01/24/21 Principal diagnosis: Acute small bowel obstruction likely due to adhesions from previous surgeries. Patient is a 85-year-old female with a known history of paroxysmal atrial fibri llation, anticoagulation with Coumadin, history of mitral valve replacement, moderate to severe pulmonary hypertension, hypothyroidism, diabetes type 2, obstructive sleep apnea, history of AICD placement and other multiple medical problems presents to ER with complaints of abdominal pain and distention started since yesterday. Patient did have prior history of bowel obstruction and had multiple abdominal surgeries. Patient has not had any bowel movement for the past 4 days. Denied any complaints of diarrhea prior to constipation. No fever no chills. No complaints of chest pain or shortness of breath. Patient has not been passing flatus. CT of the abdomen pelvis showed suspected high-grade small bowel obstruction with transition point located at the right lower quadrant. Small bowel bowel loops dilated up to 3.6 cm. Previous surgery with small bowel anastomosis left lower quadrant. The anastomosis is also dilated up to 5.9 cm. Adjacent mesenteric edema likely reactive to the obstruction. No free air is seen. However there is new mild to moderate abdominopelvic ascites. Sigmoid diverticulosis. Laboratory data showed WBC 9.7 hemoglobin 12.0 and platelets 257 INR 2.3 sodium 138 potassium 3.7 chloride 103 BUN 28 and creatinine 1.22 liver enzymes are not elevated UA negative for infection 01/24/2021 Patient states that she feels better. Able to pass flatus. Bowel sounds are present. Still having abdominal distention but improved. NG tube output is minimal. X-rays of the abdomen showed nonspecific abdominal without evidence of free air or obstruction. Patient has been afebrile. No complaints of chest pain or shortness of breath. Patient is being arranged IV hydration. No nausea vomiting. Current medications reviewed. Objective - Vital Signs Vital signs: Vital Signs Temp 98.6 F 01/24/21 14:00 Pulse 70 01/24/21 20:25 Resp 18 01/24/21 20:25 BP 103/64 01/24/21 14:00 Pulse Ox 93 L 01/24/21 14:00 Intake & Output 01/24/21 01/24/21 01/25/21 06:59 18:59 06:59 Intake Total 1300 Output Total 250 Balance 1300 -250 Intake: Intake, IV Titration 1300 Amount Piperacillin-Tazobactam 3 100 .375 gm In Sodium Chloride 0.9% 100 ml @ 200 mls/hr IVPB [facility] Rx#:[id number] Sodium Chloride 0.9% 1, 1200 000 ml @ 50 mls/hr IV . Q20H [facility] Rx#:[id number] Output: Gastric Drainage 250 Other: Voiding Method Bedside Commode Bedside Commode # Voids 0 1 1 - Exam PHYSICAL EXAMINATION: Patient is lying in the bed comfortably, no acute distress, awake alert and oriented.. HEENT: Normocephalic. Neck is supple. Pupils reactive. Nostrils clear. Oral cavity is moist. Neck reveals no JVD, carotid bruits, or thyromegaly. CHEST EXAMINATION: Trachea is central. Symmetrical expansion. Lung baca clear to auscultation and percussion. CARDIAC: Normal S1, S2 with no gallops. + murmur ABDOMEN: Abdomen is soft but distended. Bowel sounds are diminished. No guarding or rigidity.. Extremities: reveal no edema. No clubbing or cyanosis Neurologically awake, alert, oriented x3 with well-coordinated movements. No focal deficits noted Skin: No rash or skin lesions. Psychiatric: Coperative. Nonsuicidal Musculoskeletal: No joint swelling or deformity. Normal range of motion. - Labs CBC & Chem 7: 01/24/21 06:09 01/24/21 06:09 Labs: Abnormal Lab Results - Last 24 Hours (Table) 01/24/21 01/24/21 01/24/21 Range/Units 06:09 06:09 07:32 WBC 10.19 H (4.50-10.00) X 10*3/uL RBC 3.77 L (4.10-5.20) X 10*6/uL Hgb 10.2 L (12.0-15.0) g/dL Hct 34.3 L (37.2-46.3) % MCHC 29.7 L (32.0-37.0) g/dL RDW 16.5 H (11.5-14.5) % Neutrophils # 9.14 H (1.80-7.70) X 10*3/uL Lymphocytes # 0.29 L (0.90-5.00) X 10*3/uL Eosinophils # 0.01 L (0.04-0.35) X 10*3/uL Anion Gap 12.30 H (4.00-12.00) mmol/L BUN 28.0 H (9.0-27.0) mg/dL Est GFR (CKD-EPI)AfAm 47.4 L (60.0-200.0) Est GFR (CKD-EPI)NonAf 40.9 L (60.0-200.0) BUN/Creatinine Ratio 23.33 H (12.00-20.00) Ratio Glucose 123 H (70-110) mg/dL POC Glucose (mg/dL) 123 H (75-99) mg/dL Calcium 8.2 L (8.7-10.3) mg/dL 01/24/21 01/24/21 Range/Units 11:32 16:30 WBC (4.50-10.00) X 10*3/uL RBC (4.10-5.20) X 10*6/uL Hgb (12.0-15.0) g/dL Hct (37.2-46.3) % MCHC (32.0-37.0) g/dL RDW (11.5-14.5) % Neutrophils # (1.80-7.70) X 10*3/uL Lymphocytes # (0.90-5.00) X 10*3/uL Eosinophils # (0.04-0.35) X 10*3/uL Anion Gap (4.00-12.00) mmol/L BUN (9.0-27.0) mg/dL Est GFR (CKD-EPI)AfAm (60.0-200.0) Est GFR (CKD-EPI)NonAf (60.0-200.0) BUN/Creatinine Ratio (12.00-20.00) Ratio Glucose (70-110) mg/dL POC Glucose (mg/dL) 111 H 103 H (75-99) mg/dL Calcium (8.7-10.3) mg/dL Assessment and Plan Assessment: Acute small bowel obstruction likely due to adhesions from previous surgeries. Previous history of multiple abdominal surgeries and bowel obstructions. History of mitral valve replacement History of AICD placement Aortic regurgitation Moderate to severe pulmonary hypertension Hypothyroidism Obstructive sleep apnea on CPAP at home Hypertension Hyperlipidemia Osteoarthritis DVT prophylaxis patient is on Coumadin Plan: Patient be continued on IV hydration and symptomatic management and conservative therapy at this time. General surgery is following. Aspirin Coumadin is on hold for possible surgical exploration. Continue with home medications and replace electrolytes. Prognosis guarded at this time.
--- NOTE | 2021-01-26 00:22 | P.PN ---
Subjective Progress Note Date: 01/25/21 Principal diagnosis: Acute small bowel obstruction likely due to adhesions from previous surgeries. Patient is a 85-year-old female with a known history of paroxysmal atrial fibri llation, anticoagulation with Coumadin, history of mitral valve replacement, moderate to severe pulmonary hypertension, hypothyroidism, diabetes type 2, obstructive sleep apnea, history of AICD placement and other multiple medical problems presents to ER with complaints of abdominal pain and distention started since yesterday. Patient did have prior history of bowel obstruction and had multiple abdominal surgeries. Patient has not had any bowel movement for the past 4 days. Denied any complaints of diarrhea prior to constipation. No fever no chills. No complaints of chest pain or shortness of breath. Patient has not been passing flatus. CT of the abdomen pelvis showed suspected high-grade small bowel obstruction with transition point located at the right lower quadrant. Small bowel bowel loops dilated up to 3.6 cm. Previous surgery with small bowel anastomosis left lower quadrant. The anastomosis is also dilated up to 5.9 cm. Adjacent mesenteric edema likely reactive to the obstruction. No free air is seen. However there is new mild to moderate abdominopelvic ascites. Sigmoid diverticulosis. Laboratory data showed WBC 9.7 hemoglobin 12.0 and platelets 257 INR 2.3 sodium 138 potassium 3.7 chloride 103 BUN 28 and creatinine 1.22 liver enzymes are not elevated UA negative for infection 01/24/2021 Patient states that she feels better. Able to pass flatus. Bowel sounds are present. Still having abdominal distention but improved. NG tube output is minimal. X-rays of the abdomen showed nonspecific abdominal without evidence of free air or obstruction. Patient has been afebrile. No complaints of chest pain or shortness of breath. Patient is being arranged IV hydration. No nausea vomiting. 01/25/2021 Patient is lying in bed comfortably. Patient does have minimal output from the NG tube. No complaints of chest pain or shortness of. Mild lower abdominal pa in but improving. Patient able to pass flatus. Still feels bloated. Patient has been afebrile. Current IV hydration. Monitor respiratory status closely. Warfarin is on hold. Patient will be started on heparin drip due to history of mechanical mitral valve. Current medications reviewed. Objective - Vital Signs Vital signs: Vital Signs Temp 98.7 F 01/25/21 14:00 Pulse 73 01/25/21 19:55 Resp 16 01/25/21 19:55 BP 129/68 01/25/21 14:00 Pulse Ox 93 L 01/25/21 14:00 Intake & Output 01/25/21 01/25/21 01/26/21 06:59 18:59 06:59 Intake Total 600 Output Total 100 Balance 600 -100 Intake: Intake, IV Titration 600 Amount Sodium Chloride 0.9% 1, 600 000 ml @ 50 mls/hr IV . Q[facility]H [facility] Rx#:[id number] Output: Gastric Drainage 100 Other: Voiding Method Bedside Commode Bedside Commode # Voids 2 3 3 # Bowel Movements 0 0 - Exam PHYSICAL EXAMINATION: Patient is lying in the bed comfortably, no acute distress, awake alert and oriented.. HEENT: Normocephalic. Neck is supple. Pupils reactive. Nostrils clear. Oral cavity is moist. Neck reveals no JVD, carotid bruits, or thyromegaly. CHEST EXAMINATION: Trachea is central. Symmetrical expansion. Lung baca clear to auscultation and percussion. CARDIAC: Normal S1, S2 with no gallops. + murmur ABDOMEN: Abdomen is soft but distended. Bowel sounds are diminished. No guarding or rigidity.. Extremities: reveal no edema. No clubbing or cyanosis Neurologically awake, alert, oriented x3 with well-coordinated movements. No focal deficits noted Skin: No rash or skin lesions. Psychiatric: Coperative. Nonsuicidal Musculoskeletal: No joint swelling or deformity. Normal range of motion. - Labs CBC & Chem 7: 01/24/21 06:09 01/24/21 06:09 Labs: Abnormal Lab Results - Last 24 Hours (Table) 01/25/21 Range/Units 18:50 APTT 49.1 H (22.0-30.0) sec Assessment and Plan Assessment: Acute small bowel obstruction likely due to adhesions from previous surgeries. Previous history of multiple abdominal surgeries and bowel obstructions. History of mitral valve replacement History of AICD placement Aortic regurgitation Moderate to severe pulmonary hypertension Hypothyroidism Obstructive sleep apnea on CPAP at home Hypertension Hyperlipidemia Osteoarthritis DVT prophylaxis patient is on Coumadin Plan: Patient be continued on IV hydration and symptomatic management and conservative therapy at this time. General surgery is following. Aspirin Coumadin is on hold for possible surgical exploration. Continue with home medications and replace electrolytes. Prognosis guarded at this time. Time with Patient: Greater than 30
[2021-01-26] MEDS: SODIUM CHLORIDE 0.9% 1,000 ML IV SCH (04:25)
[2021-01-26] MEDS: LEVOTHYROXINE 50 MCG TAB PO SCH (05:58)
[2021-01-26 06:57] LABS: Glucose,Whole Blood 108 mg/dL (75-99)
[2021-01-26] MEDS: INSULIN ASPART (NovoLOG) 100 UNIT/ML VIAL SQ SCH ×4 (07:08→21:29)
[2021-01-26 07:33] LABS: Basophils % (A) 0 %; Eosinophils % (A) 0 %; HCT 37.7 % (34.0-46.0); HGB 11.4 gm/dL (11.4-16.0); Hypochromasia Marked; Lymphocytes # (A) 0.4 k/uL (1.0-4.8); Lymphocytes % (A) 5 %; MCH 27.9 pg (25.0-35.0); MCHC 30.2 g/dL (31.0-37.0); MCV 92.3 fL (80.0-100.0); Mean Platelet Volume 7.8; Monocytes # (A) 0.4 k/uL (0-1.0); Monocytes % (A) 5 %; Neutrophils # (A) 7.9 k/uL (1.3-7.7); Neutrophils % (A) 89 %; Platelet Count 221 k/uL (150-450); RBC 4.08 m/uL (3.80-5.40); RDW 15.7 % (11.5-15.5); WBC 8.8 k/uL (3.8-10.6)
[2021-01-26 07:45] LABS: African American GFR (CKD) 83 (>60 ml/min/1.73 sqM); Anion Gap 13 mmol/L; Blood Urea Nitrogen 23 mg/dL (7-17); Calcium 8.8 mg/dL (8.4-10.2); Carbon Dioxide 22 mmol/L (22-30); Chloride 111 mmol/L (98-107); Glucose 113 mg/dL (74-99); Non-African American GFR(CKD) 72 (>60 ml/min/1.73 sqM); Potassium 3.7 mmol/L (3.5-5.1); Sodium 146 mmol/L (137-145)
[2021-01-26 12:05] LABS: Glucose,Whole Blood 129 mg/dL (75-99)
[2021-01-26] MEDS: PANTOPRAZOLE 40 MG TABLET PO SCH (12:06)
[2021-01-26] MEDS: SILDENAFIL 20 MG TAB PO SCH ×3 (12:06→21:29)
[2021-01-26] MEDS: AMIODARONE 200 MG TAB PO SCH (12:06)
[2021-01-26] MEDS: GABAPENTIN 100 MG CAP PO SCH ×3 (12:06→21:30)
[2021-01-26] MEDS: METOPROLOL SUCCINATE (ER) 25 MG TAB.ER.24H PO SCH ×2 (12:06→21:29)
[2021-01-26] MEDS: HEPARIN SOD,PORK IN 0.45% NACL 25,000 UNIT in 0.45% NACL 1 250ML.BAG IV SCH (12:27)
[2021-01-26] MEDS: SODIUM CHLORIDE 0.45% 1,000 ML IV SCH (13:07)
--- NOTE | 2021-01-26 14:49 | P.PN ---
Progress Note - Text Progress Note Date: 01/26/21 Patient feels better. She's had some flatus. On exam her vital signs are stable. Abdomen soft. Her small bowel follow-through is reviewed. Appears to have contrast in the cecum. We will wait for the official report. She may have her nasogastric tube removed after the small bowel follow-through is reported.
--- NOTE | 2021-01-26 15:01 | P.PN ---
Subjective Progress Note Date: 01/26/21 Acute small bowel obstruction likely due to adhesions from previous surgeries. Patient is a 85-year-old female with a known history of paroxysmal atrial fibrillation, anticoagulation with Coumadin, history of mitral valve replacement, moderate to severe pulmonary hypertension, hypothyroidism, diabetes type 2, obstructive sleep apnea, history of AICD placement and other multiple medical problems presents to ER with complaints of abdominal pain and distention started since yesterday. Patient did have prior history of bowel obstruction and had multiple abdominal surgeries. Patient has not had any bowel movement for the past 4 days. Denied any complaints of diarrhea prior to constipation. No fever no chills. No complaints of chest pain or shortness of breath. Patient has not been passing flatus. CT of the abdomen pelvis showed suspected high-grade small bowel obstruction with transition point located at the right lower quadrant. Small bowel bowel loops dilated up to 3.6 cm. Previous surgery with small bowel anastomosis left lower quadrant. The anastomosis is also dilated up to 5.9 cm. Adjacent mesenteric edema likely reactive to the obstruction. No free air is seen. However there is new mild to moderate abdominopelvic ascites. Sigmoid diverticulosis. Laboratory data showed WBC 9.7 hemoglobin 12.0 and platelets 257 INR 2.3 sodium 138 potassium 3.7 chloride 103 BUN 28 and creatinine 1.22 liver enzymes are not elevated UA negative for infection 01/24/2021 Patient states that she feels better. Able to pass flatus. Bowel sounds are present. Still having abdominal distention but improved. NG tube output is minimal. X-rays of the abdomen showed nonspecific abdominal without evidence of free air or obstruction. Patient has been afebrile. No complaints of chest pain or shortness of breath. Patient is being arranged IV hydration. No nausea vomiting. 01/25/2021 Patient is lying in bed comfortably. Patient does have minimal output from the NG tube. No complaints of chest pain or shortness of. Mild lower abdominal pain but improving. Patient able to pass flatus. Still feels bloated. Patient has been afebrile. Current IV hydration. Monitor respiratory status closely. Warfarin is on hold. Patient will be started on heparin drip due to history of mechanical mitral valve. 01/26/2021 Patient is lying in bed just having completed the small bowel series at the time of my examination. Patient has been nothing by mouth this morning with an NG tube in place with minimal output. Pt has had BM x 2 today, negative for diarrhea. This morning her vital signs are stable patient has remained afebrile this admission, blood pressure is continuing to climb most recent levels 162/77 at the time of my examination, patient continues on her home dose of Toprol-XL. Patient's white blood cell count has normalized with a level of 8.8 today. Patient has a history of mechanical valve replacement. Maintained on Coumadin with the last INR of 2.3 on 01/23, patient and is currently maintained on a heparin drip pending surgical recommendations. Morphine has been discontinued and patient has been placed on IV Tylenol for pain as needed. Patient's chloride level is 111 today, and a sodium level of 146, fluids have been changed to half-normal saline at 75 mL per hour, repeat labs in the morning. BUN and creatinine have normalized. Torsemide and metolazone continue to be on hold. Will re-evaluate in the morning. ROS: Constitutional: Denied any fatigue denied any fever. Cardio vascular: denied any chest pain, palpitations Gastrointestinal denied any nausea vomiting, denies abdmonial pain, reports bloating, reports flatus. Pulmonary: Denied any shortness of breath cough Neurologic denied any new focal deficits All inpatient medications were reviewed and appropriate changes in these medications as dictated in the interval history and assessment and plan. PHYSICAL EXAMINATION: GENERAL: The patient is alert and oriented x3, not in any acute distress. Well developed, well nourished. HEENT: Pupils are round and equally reacting to light. EOMI. No scleral icterus. No conjunctival pallor. Normocephalic, atraumatic. No pharyngeal erythema. No thyromegaly. CARDIOVASCULAR: S1 and S2 present. No murmurs, rubs, or gallops. PULMONARY: Chest is clear to auscultation, no wheezing or crackles. ABDOMEN: Soft, nontender, distended, hypoactive bowel sounds. No palpable organomegaly. MUSCULOSKELETAL: No joint swelling or deformity. EXTREMITIES: No cyanosis, clubbing, or pedal edema. NEUROLOGICAL: Gross neurological examination did not reveal any focal deficits. SKIN: No rashes. ASSESSMENT: Acute small bowel obstruction likely due to adhesions from previous surgeries. Previous history of multiple abdominal surgeries and bowel obstructions. History of mitral valve replacement History of AICD placement Aortic regurgitation Moderate to severe pulmonary hypertension Hypothyroidism Obstructive sleep apnea on CPAP at home Hypertension Hyperlipidemia Osteoarthritis DVT prophylaxis patient is on heparin infusion, coumadin currently on hold PLAN: Patient be continued on IV hydration and symptomatic management and conservative therapy at this time. General surgery is following, further recommendations pending results of small bowel study today. Per surgical, patient may possibly have her NG tube removed after the final results for the small bowel. Aspirin Coumadin is on hold for possible surgical exploration, patient is currently maintained on a heparin infusion. Repeat lab work in the morning. Continue with home medications and replace electrolytes. Prognosis guarded at this time. Objective - Vital Signs Vital signs: Vital Signs Temp 98.4 F 01/26/21 12:00 Pulse 70 01/26/21 12:00 Resp 18 01/26/21 12:00 BP 162/77 01/26/21 12:00 Pulse Ox 91 L 01/26/21 12:00 Intake & Output 01/25/21 01/26/21 01/26/21 18:59 06:59 18:59 Intake Total 998.63 193.147 Output Total 100 Balance -100 998.63 193.147 Intake: Intake, IV Titration 998.63 193.147 Amount Heparin Sod,Pork in 0.45% 98.63 193.147 NaCl 25,000 unit In 0.45 % NaCl 1 250ml.bag @ 12 UNITS/KG/HR 8.219 mls/hr IV .Q24H [facility] Rx#: [id number] Sodium Chloride 0.9% 1, 900 000 ml @ 75 mls/hr IV . [id number] [facility] Rx#:[id number] Output: Gastric Drainage 100 Other: Voiding Method Bedside Commode # Voids 3 3 1 # Bowel Movements 0 0 1 - Labs CBC & Chem 7: 01/26/21 07:07 01/26/21 07:07 Labs: Abnormal Lab Results - Last 24 Hours (Table) 01/25/21 01/26/21 01/26/21 Range/Units 18:50 06:55 07:07 MCHC (31.0-37.0) g/dL RDW (11.5-15.5) % Neutrophils # (1.3-7.7) k/uL Lymphocytes # (1.0-4.8) k/uL APTT 49.1 H 50.6 H (22.0-30.0) sec Sodium (137-145) mmol/L Chloride (98-107) mmol/L BUN (7-17) mg/dL Glucose (74-99) mg/dL POC Glucose (mg/dL) 108 H (75-99) mg/dL 01/26/21 01/26/21 01/26/21 Range/Units 07:07 07:07 11:58 MCHC 30.2 L (31.0-37.0) g/dL RDW 15.7 H (11.5-15.5) % Neutrophils # 7.9 H (1.3-7.7) k/uL Lymphocytes # 0.4 L (1.0-4.8) k/uL APTT (22.0-30.0) sec Sodium 146 H (137-145) mmol/L Chloride 111 H (98-107) mmol/L BUN 23 H (7-17) mg/dL Glucose 113 H (74-99) mg/dL POC Glucose (mg/dL) 129 H (75-99) mg/dL Assessment and Plan Time with Patient: Greater than 30
--- NOTE | 2021-01-26 15:10 | FL ---
EXAMINATION TYPE: FL small bowel follow through DATE OF EXAM: 01/26/2021 COMPARISON: None HISTORY: Small bowel obstruction TECHNIQUE: Oral administration of 100 mL Isovue-370 diluted, Orally administered. Overhead radiograph s and fluoroscopic spot imaging was performed. Real-time observation was performed. FINDINGS: Vision Therapist image there is abundant fecal debris throughout the colon. Nasogastric tube is in the left upper quadrant of the abdomen. Stomach fills normally. There is prompt spill through the duodenum into the proximal jejunum. There a re some mildly prominent small bowel loops within the left midabdomen. No focal stenosis is identifie d. Oral contrast passes through small bowel loops to the colon. Transit time is 2 hours 15 minutes. F luoroscopic imaging over the terminal ileum appears normal. There is mild ileal fold pattern of the m id jejunum. Ileal fold pattern appears normal. Remaining portions of the jejunum appeared normal. Loo ps of bowel are freely mobile with gentle compression. Patient had some tenderness over the area of a pparent ileus. Fluoroscopy time: Not recorded Images: 19 IMPRESSION: 1. No obstruction identified. 2. Some mild mid jejunal ileus may be present. 3. Abundant fecal retention throughout the colon.
[2021-01-26 17:06] LABS: Glucose,Whole Blood 146 mg/dL (75-99)
[2021-01-26] MEDS: ACETAMINOPHEN TAB 325 MG TAB PO PRN (17:33)
[2021-01-26] MEDS ORDERED: ACETAMINOPHEN IV (For NPO) 1,000 MG in EMPTY BAG 1 BAG IVPB SCH (18:00)
[2021-01-26 18:13] LABS: INR 4.8 (<1.2); Prothrombin Time 46.1 sec (9.0-12.0)
[2021-01-26 20:35] LABS: Glucose,Whole Blood 210 mg/dL (75-99)
[2021-01-26] MEDS ORDERED: WARFARIN 2 MG TAB PO SCH (21:00)
[2021-01-26] MEDS: ATORVASTATIN 10 MG TAB PO SCH (21:29)
[2021-01-27] MEDS: SODIUM CHLORIDE 0.45% 1,000 ML IV SCH (02:30)
[2021-01-27] MEDS: LEVOTHYROXINE 50 MCG TAB PO SCH (06:02)
[2021-01-27 07:08] LABS: Glucose,Whole Blood 141 mg/dL (75-99)
[2021-01-27] MEDS: INSULIN ASPART (NovoLOG) 100 UNIT/ML VIAL SQ SCH ×5 (07:25→23:38)
[2021-01-27] MEDS: PANTOPRAZOLE 40 MG TABLET PO SCH (07:29)
[2021-01-27 07:50] LABS: Partial Thromboplastin Time 37.3 sec (22.0-30.0); Prothrombin Time 49.8 sec (9.0-12.0)
[2021-01-27 08:02] LABS: INR 5.2 (<1.2)
[2021-01-27] MEDS: SILDENAFIL 20 MG TAB PO SCH ×3 (10:01→20:40)
[2021-01-27] MEDS: AMIODARONE 200 MG TAB PO SCH (10:01)
[2021-01-27] MEDS: GABAPENTIN 100 MG CAP PO SCH ×3 (10:01→20:36)
[2021-01-27] MEDS: METOPROLOL SUCCINATE (ER) 25 MG TAB.ER.24H PO SCH ×2 (10:01→20:36)
[2021-01-27] MEDS ORDERED: FUROSEMIDE 10 MG/ML 4 ML VIAL IV STA (10:53)
[2021-01-27 11:50] LABS: Glucose,Whole Blood 157 mg/dL (75-99)
--- NOTE | 2021-01-27 11:58 | XR ---
EXAMINATION TYPE: XR chest 1V portable DATE OF EXAM: 01/27/2021 COMPARISON: 08/27/2020 HISTORY: Shortness of breath TECHNIQUE: Single frontal view of the chest is obtained. FINDINGS: Diffuse interstitial pattern with bilateral infiltrate and small effusion. Postoperative c hanges cardiac device. No sizable pneumothorax. IMPRESSION: 1. Correlate for CHF otherwise consider pneumonia with interstitial pneumonitis
--- NOTE | 2021-01-27 13:30 | P.PN ---
Subjective Progress Note Date: 01/27/21 Acute small bowel obstruction likely due to adhesions from previous surgeries. Patient is a 85-year-old female with a known history of paroxysmal atrial fibrillation, anticoagulation with Coumadin, history of mitral valve replacement, moderate to severe pulmonary hypertension, hypothyroidism, diabetes type 2, obstructive sleep apnea, history of AICD placement and other multiple medical problems presents to ER with complaints of abdominal pain and distention started since yesterday. Patient did have prior history of bowel obstruction and had multiple abdominal surgeries. Patient has not had any bowel movement for the past 4 days. Denied any complaints of diarrhea prior to constipation. No fever no chills. No complaints of chest pain or shortness of breath. Patient has not been passing flatus. CT of the abdomen pelvis showed suspected high-grade small bowel obstruction with transition point located at the right lower quadrant. Small bowel bowel loops dilated up to 3.6 cm. Previous surgery with small bowel anastomosis left lower quadrant. The anastomosis is also dilated up to 5.9 cm. Adjacent mesenteric edema likely reactive to the obstruction. No free air is seen. However there is new mild to moderate abdominopelvic ascites. Sigmoid diverticulosis. Laboratory data showed WBC 9.7 hemoglobin 12.0 and platelets 257 INR 2.3 sodium 138 potassium 3.7 chloride 103 BUN 28 and creatinine 1.22 liver enzymes are not elevated UA negative for infection 01/24/2021 Patient states that she feels better. Able to pass flatus. Bowel sounds are present. Still having abdominal distention but improved. NG tube output is minimal. X-rays of the abdomen showed nonspecific abdominal without evidence of free air or obstruction. Patient has been afebrile. No complaints of chest pain or shortness of breath. Patient is being arranged IV hydration. No nausea vomiting. 01/25/2021 Patient is lying in bed comfortably. Patient does have minimal output from the NG tube. No complaints of chest pain or shortness of. Mild lower abdominal pain but improving. Patient able to pass flatus. Still feels bloated. Patient has been afebrile. Current IV hydration. Monitor respiratory status closely. Warfarin is on hold. Patient will be started on heparin drip due to history of mechanical mitral valve. 01/26/2021 Patient is lying in bed just having completed the small bowel series at the time of my examination. Patient has been nothing by mouth this morning with an NG tube in place with minimal output. Pt has had BM x 2 today, negative for diarrhea. This morning her vital signs are stable patient has remained afebrile this admission, blood pressure is continuing to climb most recent levels 162/77 at the time of my examination, patient continues on her home dose of Toprol-XL. Patient's white blood cell count has normalized with a level of 8.8 today. Patient has a history of mechanical valve replacement. Maintained on Coumadin with the last INR of 2.3 on 01/23, patient and is currently maintained on a heparin drip pending surgical recommendations. Morphine has been discontinued and patient has been placed on IV Tylenol for pain as needed. Patient's chloride level is 111 today, and a sodium level of 146, fluids have been changed to half-normal saline at 75 mL per hour, repeat labs in the morning. BUN and creatinine have normalized. Torsemide and metolazone continue to be on hold. Will re-evaluate in the morning. 01/27/2021 Patient was evaluated this morning lying comfortably in her data she has wearing oxygen via nasal cannula. Patient states that she does wear oxygen at home when she is feeling short of breath. Patient states this morning she is feeling short of breath when she is up ambulating. Patient's metolazone and torsemide have been on hold. Patient has a history of heart failure, last echo in June 2020 shows an ejection fraction of 40-45%. With moderate aortic regurgitation, moderate aortic stenosis, moderate to severe tricuspid regurgitation, and severe pulmonary hypertension. Upon physical examination patient has crackles bilateral posterior bases, stat chest x-ray ordered, 1 dose of IV Lasix ordered and IV fluids will be discontinued. Patient denies any chest pain, denies palpitations. She denies abdominal pain, denies n/v, states she is passing gas, and has had multiple bowel movements throughout the night. She states they are more formed. The patient's NG tube has been discontinued. Small bowel series completed yesterday shows no obstruction, a mild mid jejunal ileus, and fecal retention throughout the colon that is resolving. Patient has been advanced to a clear liquid diet and states she is tolerating it well. Heparin drip has been discontinued, Coumadin as on hold today for an INR of 5.2. Will recheck in the morning. No signs of bleeding currently. ROS: Constitutional: Denied any fatigue denied any fever. Cardio vascular: denied any chest pain, palpitations Gastrointestinal: denied any nausea vomiting, denies abdominal pain, reports flatus, reports BM Pulmonary: Reports exertional dyspnea, reports intermittent non productive cough Neurologic denied any new focal deficits All inpatient medications were reviewed and appropriate changes in these medications as dictated in the interval history and assessment and plan. PHYSICAL EXAMINATION: GENERAL: The patient is alert and oriented x3, not in any acute distress. Well developed, well nourished. HEENT: Pupils are round and equally reacting to light. EOMI. No scleral icterus. No conjunctival pallor. Normocephalic, atraumatic. No pharyngeal erythema. No thyromegaly. CARDIOVASCULAR: S1 and S2 present. No murmurs, rubs, or gallops. PULMONARY: Crackles bilateral posterior base ABDOMEN: Soft, nontender, nondistended, normoactive bowel sounds. No palpable organomegaly. MUSCULOSKELETAL: No joint swelling or deformity. EXTREMITIES: No cyanosis, clubbing, or pedal edema. NEUROLOGICAL: Gross neurological examination did not reveal any focal deficits. SKIN: No rashes. ASSESSMENT: Acute small bowel obstruction likely due to adhesions from previous surgeries. Previous history of multiple abdominal surgeries and bowel obstructions. History of mitral valve replacement, maintained on coumadin History of AICD placement Aortic regurgitation Moderate to severe pulmonary hypertension History of Chronic congestive systolic heart failure - current EF 40 - 45%, acute exacerbation Hypothyroidism Obstructive sleep apnea on CPAP at home, wears home oxygen Hypertension Hyperlipidemia Osteoarthritis Coagulopathy - INR 5.2, currently O/H - no signs of acute bleed DVT prophylaxis, coumadin currently on hold PLAN: Patient be continued on symptomatic management at this time. General surgery is following, NGT discontinued and patient has been advanced to a clear liquid diet. Aspirin Coumadin is on hold for an INR of 5.2. Recheck in the morning. IV fluids have been discontinued. Stat chest x-ray has been ordered which showed a correlation for CHF otherwise consider pneumonia with interstitial pneumonitis. Stat dose of IV Lasix 40 mg has been ordered, and we'll continue IV Lasix 40 mg IV push twice a day. We will resume home diuretics in the morning. Pending discharge in the next 24-48 hours. Continue to encourage incentive spirometry and increase activity level. Continue with home medications and replace electrolytes. Prognosis guarded at this time. Objective - Vital Signs Vital signs: Vital Signs Temp 97.6 F 01/27/21 07:26 Pulse 70 01/27/21 07:26 Resp 16 01/27/21 07:26 BP 156/85 01/27/21 07:26 Pulse Ox 96 01/27/21 07:56 Intake & Output 01/26/21 01/27/21 01/27/21 18:59 06:59 18:59 Intake Total 193.147 Balance 193.147 Intake: Intake, IV Titration 193.147 Amount Heparin Sod,Pork in 0.45% 193.147 NaCl 25,000 unit In 0.45 % NaCl 1 250ml.bag @ 12 UNITS/KG/HR 8.219 mls/hr IV .Q24H BRAYAN Rx#: [id number] Other: # Voids 4 2 # Bowel Movements 5 - Labs CBC & Chem 7: 01/26/21 07:07 01/26/21 07:07 Labs: Abnormal Lab Results - Last 24 Hours (Table) 01/26/21 01/26/21 01/26/21 Range/Units 11:58 17:03 17:48 PT 46.1 H (9.0-12.0) sec INR 4.8 H (<1.2) APTT (22.0-30.0) sec POC Glucose (mg/dL) 129 H 146 H (75-99) mg/dL 01/26/21 01/27/21 01/27/21 Range/Units 20:33 07:06 07:07 PT 49.8 H (9.0-12.0) sec INR 5.2 H* (<1.2) APTT 37.3 H (22.0-30.0) sec POC Glucose (mg/dL) 210 H 141 H (75-99) mg/dL Assessment and Plan Time with Patient: Greater than 30
--- NOTE | 2021-01-27 14:01 | P.PN ---
Subjective Progress Note Date: 01/27/21 CHIEF COMPLAINT: Small bowel obstruction HISTORY OF PRESENT ILLNESS: Patient is sitting up at bedside chair. She reports no abdominal pain. She denies any nausea or vomiting. She has had multiple bowel movements and flatus. Currently on a clear liquid diet. Afebrile. Small bowel follow-through shows no obstruction identified. Some mild mid jejunal ileus may be present. Abundant fecal retention throughout the colon. Afebrile. INR 5.2 Chest x-ray to correlate for CHF. Medicine service has started patient on IV Lasix Patient seen and examined with Dr. david PHYSICAL EXAM: VITAL SIGNS: Reviewed. GENERAL: Well-developed in no acute distress. HEENT: No sclera icterus. Extraocular movements grossly intact. Moist buccal mucosa. Head is atraumatic, normocephalic. ABDOMEN: Soft. Nondistended. Nontender. NEUROLOGIC: Alert and oriented. Cranial nerves II through XII grossly intact. ASSESSMENT: 1. Small bowel obstruction PLAN: -Continue to manage conservatively -Advance diet to full liquids -Encourage patient to ambulate Physician Missile Mechanic note has been reviewed by physician. Signing provider agrees with the documented findings, assessment, and plan of care. Objective - Vital Signs Vital signs: Vital Signs Temp 97.6 F 01/27/21 07:26 Pulse 70 01/27/21 07:26 Resp 16 01/27/21 07:26 BP 156/85 01/27/21 07:26 Pulse Ox 96 01/27/21 07:56 Intake & Output 01/26/21 01/27/21 01/27/21 18:59 06:59 18:59 Intake Total 193.147 Balance 193.147 Intake: Intake, IV Titration 193.147 Amount Heparin Sod,Pork in 0.45% 193.147 NaCl 25,000 unit In 0.45 % NaCl 1 250ml.bag @ 12 UNITS/KG/HR 8.219 mls/hr IV .Q24H BRAYAN Rx#: [id number] Other: # Voids 4 2 # Bowel Movements 5 - Labs CBC & Chem 7: 01/26/21 07:07 01/26/21 07:07 Labs: Abnormal Lab Results - Last 24 Hours (Table) 01/26/21 01/26/21 01/26/21 Range/Units 17:03 17:48 20:33 PT 46.1 H (9.0-12.0) sec INR 4.8 H (<1.2) APTT (22.0-30.0) sec POC Glucose (mg/dL) 146 H 210 H (75-99) mg/dL 01/27/21 01/27/21 01/27/21 Range/Units 07:06 07:07 11:49 PT 49.8 H (9.0-12.0) sec INR 5.2 H* (<1.2) APTT 37.3 H (22.0-30.0) sec POC Glucose (mg/dL) 141 H 157 H (75-99) mg/dL
[2021-01-27 14:14] LABS: African American GFR (CKD) 77.4 (60.0-200.0); Anion Gap 11.4 mmol/L (4.00-12.00); BUN/Creat Ratio 23.75 Ratio (12.00-20.00); Calcium 8.4 mg/dL (8.7-10.3); Carbon Dioxide 25.6 mmol/L (21.6-31.8); Non-African American GFR(CKD) 66.8 (60.0-200.0); Potassium 3.3 mmol/L (3.5-5.5)
[2021-01-27] MEDS ORDERED: Potassium Replacement Protocol 1 EACH MISC MISCELLANE PRN (15:12)
[2021-01-27] MEDS: POTASSIUM CHLORIDE ER 20 MEQ TAB.ER PO SCH ×2 (15:29→17:05)
[2021-01-27 16:54] LABS: Glucose,Whole Blood 117 mg/dL (75-99)
[2021-01-27] MEDS ORDERED: WARFARIN 0.5 MG TAB PO ONE (18:00)
[2021-01-27 20:11] LABS: Glucose,Whole Blood 127 mg/dL (75-99)
[2021-01-27] MEDS: FUROSEMIDE 10 MG/ML 4 ML VIAL IV SCH (20:35)
[2021-01-27] MEDS: ATORVASTATIN 10 MG TAB PO SCH (20:36)
[2021-01-27] MEDS: ACETAMINOPHEN TAB 325 MG TAB PO PRN (20:36)
[2021-01-28] MEDS: LEVOTHYROXINE 50 MCG TAB PO SCH (05:35)
[2021-01-28 06:58] LABS: Glucose,Whole Blood 129 mg/dL (75-99)
[2021-01-28] MEDS: INSULIN ASPART (NovoLOG) 100 UNIT/ML VIAL SQ SCH ×2 (06:58→12:28)
[2021-01-28 07:02] LABS: Prothrombin Time 29.2 sec (9.0-12.0)
[2021-01-28] MEDS: PANTOPRAZOLE 40 MG TABLET PO SCH (07:21)
[2021-01-28 07:48] VITALS: PULSE 71
[2021-01-28] MEDS: GABAPENTIN 100 MG CAP PO SCH (08:22)
[2021-01-28] MEDS: AMIODARONE 200 MG TAB PO SCH (08:22)
[2021-01-28] MEDS: METOPROLOL SUCCINATE (ER) 25 MG TAB.ER.24H PO SCH (08:22)
[2021-01-28] MEDS: SILDENAFIL 20 MG TAB PO SCH (09:14)
[2021-01-28 10:01] LABS: HCT 33.5 % (37.2-46.3); HGB 9.8 g/dL (12.0-15.0); MCH 26.6 pg (27.0-32.0); MCHC 29.3 g/dL (32.0-37.0); MCV 90.8 fL (80.0-97.0); Mean Platelet Volume 10.4 fL (9.5-12.2); Platelet Count 208 X 10*3/uL (140-440); RBC 3.69 X 10*6/uL (4.10-5.20); RDW 16.6 % (11.5-14.5); WBC 6.07 X 10*3/uL (4.50-10.00)
[2021-01-28] MEDS: FUROSEMIDE 10 MG/ML 4 ML VIAL IV SCH (10:03)
[2021-01-28] MEDS ORDERED: POTASSIUM CHLORIDE ER 20 MEQ TAB.ER PO STA (10:23)
[2021-01-28 10:53] LABS: African American GFR (CKD) 77.4 (60.0-200.0); Anion Gap 5.8 mmol/L (4.00-12.00); BUN/Creat Ratio 17.5 Ratio (12.00-20.00); Calcium 8.2 mg/dL (8.7-10.3); Carbon Dioxide 32.2 mmol/L (21.6-31.8); Magnesium 1.7 mg/dL (1.5-2.4); Non-African American GFR(CKD) 66.8 (60.0-200.0); Potassium 3.2 mmol/L (3.5-5.5)
--- NOTE | 2021-01-28 11:46 | P.PN ---
Subjective Progress Note Date: 01/28/21 CHIEF COMPLAINT: Small bowel obstruction HISTORY OF PRESENT ILLNESS: Patient up in the bathroom getting cleaned up. She reports no abdominal pain. She was able to eat her some for full liquid breakfast. Denies any nausea or vomiting. She did have a liquidy bowel movement yesterday. She is having flatus. Afebrile. WBC 6.07 hemoglobin 9.8 INR 3.0 potassium 3.2 and being replaced PHYSICAL EXAM: VITAL SIGNS: Reviewed. GENERAL: Well-developed in no acute distress. HEENT: No sclera icterus. Extraocular movements grossly intact. Moist buccal mucosa. Head is atraumatic, normocephalic. ABDOMEN: Soft. Nontender. Mild distention decreased from yesterday NEUROLOGIC: Alert and oriented. Cranial nerves II through XII grossly intact. ASSESSMENT: 1. Small bowel obstruction treated conservatively PLAN: -Patient is stable from surgical standpoint for discharge Physician Pension Consultant note has been reviewed by physician. Signing provider agrees with the documented findings, assessment, and plan of care. Objective - Vital Signs Vital signs: Vital Signs Temp 97.9 F 01/28/21 07:47 Pulse 71 01/28/21 07:47 Resp 16 01/28/21 09:23 BP 145/83 01/28/21 07:47 Pulse Ox 96 01/28/21 08:55 Intake & Output 01/27/21 01/28/21 01/28/21 18:59 06:59 18:59 Other: Voiding Method Bedside Commode Bedside Commode # Voids 2 1 # Bowel Movements 1 - Labs CBC & Chem 7: 01/28/21 06:07 01/28/21 06:07 Labs: Abnormal Lab Results - Last 24 Hours (Table) 01/27/21 01/27/21 01/27/21 Range/Units 07:07 11:49 16:53 RBC (4.10-5.20) X 10*6/uL Hgb (12.0-15.0) g/dL Hct (37.2-46.3) % MCH (27.0-32.0) pg MCHC (32.0-37.0) g/dL RDW (11.5-14.5) % PT (9.0-12.0) sec INR (<1.2) Sodium 147 H (135-145) mmol/L Potassium 3.3 L (3.5-5.5) mmol/L Chloride 110 H (96-109) mmol/L Carbon Dioxide (21.6-31.8) mmol/L BUN/Creatinine Ratio 23.75 H (12.00-20.00) Ratio Glucose 181 H (70-110) mg/dL POC Glucose (mg/dL) 157 H 117 H (75-99) mg/dL Calcium 8.4 L (8.7-10.3) mg/dL 01/27/21 01/28/21 01/28/21 Range/Units 20:10 06:07 06:07 RBC 3.69 L (4.10-5.20) X 10*6/uL Hgb 9.8 L (12.0-15.0) g/dL Hct 33.5 L (37.2-46.3) % MCH 26.6 L (27.0-32.0) pg MCHC 29.3 L (32.0-37.0) g/dL RDW 16.6 H (11.5-14.5) % PT 29.2 H (9.0-12.0) sec INR 3.0 H (<1.2) Sodium (135-145) mmol/L Potassium (3.5-5.5) mmol/L Chloride (96-109) mmol/L Carbon Dioxide (21.6-31.8) mmol/L BUN/Creatinine Ratio (12.00-20.00) Ratio Glucose (70-110) mg/dL POC Glucose (mg/dL) 127 H (75-99) mg/dL Calcium (8.7-10.3) mg/dL 01/28/21 01/28/21 Range/Units 06:07 06:56 RBC (4.10-5.20) X 10*6/uL Hgb (12.0-15.0) g/dL Hct (37.2-46.3) % MCH (27.0-32.0) pg MCHC (32.0-37.0) g/dL RDW (11.5-14.5) % PT (9.0-12.0) sec INR (<1.2) Sodium (135-145) mmol/L Potassium 3.2 L (3.5-5.5) mmol/L Chloride (96-109) mmol/L Carbon Dioxide 32.2 H (21.6-31.8) mmol/L BUN/Creatinine Ratio (12.00-20.00) Ratio Glucose 131 H (70-110) mg/dL POC Glucose (mg/dL) 129 H (75-99) mg/dL Calcium 8.2 L (8.7-10.3) mg/dL
[2021-01-28 11:52] LABS: Glucose,Whole Blood 151 mg/dL (75-99)
--- NOTE | 2021-01-28 13:44 | P.DS ---
Providers Date of admission: 01/23/21 15:54 Attending physician: Massimo Martinez Consults: 01/23/21 16:12 Consult Physician Urgent Consulting Provider: Marco A Oliver Consult Reason/Comments: Small bowel obstruction Do you want consulting provider notified?: Already Contacted Primary care physician: Physician Nonstaff Hospital Course: Final Diagnosis Acute small bowel obstruction likely due to adhesions from previous surgeries. Previous history of multiple abdominal surgeries and bowel obstructions. History of mitral valve replacement, maintained on coumadin current INR 3 History of AICD placement Aortic regurgitation Moderate to severe pulmonary hypertension History of Chronic congestive systolic heart failure - current EF 40 - 45%, acute exacerbation Hypothyroidism Obstructive sleep apnea on CPAP at home, wears home oxygen Hypertension Hyperlipidemia Osteoarthritis DVT prophylaxis, coumadin resumed today Discharge disposition Patient is being discharged in a stable condition home today with a stable prognosis. Patient will follow-up with her stock checkerer as well as her primary care physician who are out-of-town. Those appointments have been scheduled by the nurse. Patient will resume her Coumadin today at the dose of 1 mg. And then she may resume her normal 2 mg dose daily of Coumadin tomorrow, patient will have her INR checked within 2 days. Patient will follow diet recommendations from surgical services. Patient will continue on her oral Demadex. Patient is sent home with potassium supplementation. Potassium today was 3.2. Patient received supplementation prior to discharge. Patient metolazone has been placed on hold until follow-up with her stock checkerer. Total time taken with patient is greater than 35 minutes. Hospital course this is a pleasant 85-year-old female who presented to the emergency center with complaints of abdominal pain and distention and has not had a bowel movement for the last 4 days. Patient denies any diarrhea prior to the constipation. No fever no chills no signs of infection. Patient denies chest pain, SOB, denies cough. Patient states that she also has not been passing gas. CT of the abdomen pelvis showed suspected high-grade small bowel obstruction with transition point located at the right lower quadrant. Patient has significant history with small bowel anastomosis in the left lower quadrant that is not dilated up to 5.8 cm. Adjacent mesenteric edema likely reactive to the obstruction. There is new mild to moderate abdominopelvic ascites. Was sigmoid diverticulosis. Patient was initially evaluated via surgical services, who then placed the patient on an NG tube. Patient underwent a small bowel x- ray on January 26 which was negative for obstruction and showed some fecal retent ion throughout the colon and a questionable jejunal ileus. Patient's NG tube has now been removed patient is having normal bowel movements and passing gas. Patient denies abdominal pain at this time. Patient will be sent home with conservative management. Diet recommendations via surgical services. On January 27 patient noted to have some crackles in her bilateral posterior bases chest x- ray was obtained that was positive for CHF. Patient has a known history of congestive heart failure systolic with a recent EF 40-45%. Patient was given 3 doses of IV Lasix over a course of 2 days. Patient reports that she is not short of breath any more with activity. On lung sounds remain clear in the bilateral bases at the time of discharge. Vital signs are stable and patient has remained afebrile. INR today is 3 there are no signs of active bleed, and patient will be discharged home on Coumadin with an INR check in 2 days. Patient is evaluated today on January 26 she denies nausea, vomiting, constipation, chest pain, cough, and shortness of breath. Patient states she is feeling well Emry to be discharged home. Patient is wearing nasal cannula oxygen at the time of my assessment, patient states that she does wear oxygen at home. Vital signs are stable. Patient is alert and oriented 3. Patient is understanding of all discharge instructions. Follow-up appointments have been made. Please refer to medication reconciliation for current medications. Patient Condition at Discharge: Stable Plan - Discharge Summary Discharge Rx Participant: No New Discharge Prescriptions: New Potassium Chloride ER [K-Dur 20] 20 meq PO DAILY #30 tab Continue Gabapentin [Neurontin] 200 mg PO TID Lovastatin [Mevacor] 20 mg PO HS Aspirin 81 mg PO DAILY HYDROcodone/APAP 7.5-325MG [Sarita 7.5-325] 1 tab PO Q8H PRN PRN Reason: Pain Omeprazole 20 mg PO DAILY Torsemide [Demadex] 10 mg PO DAILY Metoprolol Succinate (ER) [Toprol XL] 25 mg PO BID Sildenafil [Revatio] 20 mg PO TID Levothyroxine Sodium [Synthroid] 50 mcg PO DAILY Amiodarone HCl [Pacerone] 200 mg PO DAILY Warfarin Sodium [Jantoven] 2 mg PO HS Sennosides [Senna] 8.6 mg PO DAILY Esomeprazole Magnesium [NexIUM 24Hr] 40 mg PO BID PRN PRN Reason: GERDS Calcium Polycarbophil [Fiber-Lax] 1,875 mg PO BID Discontinued metOLazone [Zaroxolyn] 2.5 mg PO DAILY PRN PRN Reason: Edema Discharge Medication List Gabapentin [Neurontin] 200 mg PO TID 10/08/14 [History] Lovastatin [Mevacor] 20 mg PO HS 06/03/17 [History] Aspirin 81 mg PO DAILY 06/06/17 [History] HYDROcodone/APAP 7.5-325MG [Sarita 7.5-325] 1 tab PO Q8H PRN 03/24/20 [History] Omeprazole 20 mg PO DAILY 03/24/20 [History] Torsemide [Demadex] 10 mg PO DAILY 05/29/20 [History] Metoprolol Succinate (ER) [Toprol XL] 25 mg PO BID 07/25/20 [History] Amiodarone HCl [Pacerone] 200 mg PO DAILY 01/23/21 [History] Calcium Polycarbophil [Fiber-Lax] 1,875 mg PO BID 01/23/21 [History] Esomeprazole Magnesium [NexIUM 24Hr] 40 mg PO BID PRN 01/23/21 [History] Levothyroxine Sodium [Synthroid] 50 mcg PO DAILY 01/23/21 [History] Sennosides [Senna] 8.6 mg PO DAILY 01/23/21 [History] Sildenafil [Revatio] 20 mg PO TID 01/23/21 [History] Warfarin Sodium [Jantoven] 2 mg PO HS 01/23/21 [History] Potassium Chloride ER [K-Dur 20] 20 meq PO DAILY #30 tab 01/28/21 [Rx] Follow up Appointment(s)/Referral(s): Osito Burns MD [REFERRING] - 1 Week (Please call and arrange an appointment for follow up - office closed at time of discharge) [facility], [NON-STAFF] - Nonstaff,Physician [Primary Care Provider] - 1-2 days (needs appt with her pcp needs appt with her stock checkerer who is out of town.) Rashawn Farah MD [Medical Doctor] - 1 Week (Please call office to arrange follow up appointment - office closed at time of discharge) Ambulatory/Diagnostic Orders: Prothrombin Time INR [LAB.AMB] Time Frame: 2 Days, Location: None Selected Patient Instructions/Handouts: Bowel Obstruction (DC) Activity/Diet/Wound Care/Special Instructions: Activity is limited until follow-up with patient's PCP. Continue cardiac diet. Patient is take 1 mg of Coumadin today. Check INR in 2 days. She can resume her home dose of 2 mg of Coumadin daily. Patient is to hold her metolazone until follow up with her PCP. Patient also needed a follow up appointment with her stock checkerer. Discharge Disposition: HOME WITH HOME HEALTH SERVICES
[2021-01-28 14:22] VITALS: BP 131/72; RESP 17; TEMP 98.4
[2021-01-28] MEDS ORDERED: WARFARIN 1 MG TAB PO ONE (18:00)
== END 2021-01-28 14:41 | disposition home health service (06) | DRG 388 ==
LOC: EC 13:19 → 4SSUR 15:54
PROVIDERS: ADMIT Internal Medicine; ATTEND Internal Medicine
PROC: 0D9670Z Drainage of Stomach with Drainage Device, Via Natural or Artificial Opening (ICD-10-PCS; principal; 2021-01-23)
DX: K56.50 Intestinal adhesions [bands], unspecified as to partial versus complete obstruction (principal); I50.23 Acute on chronic systolic (congestive) heart failure; D68.9 Coagulation defect, unspecified; R18.8 Other ascites; E03.9 Hypothyroidism, unspecified; E11.9 Type 2 diabetes mellitus without complications; E78.5 Hyperlipidemia, unspecified; G47.33 Obstructive sleep apnea (adult) (pediatric); Z99.89 Dependence on other enabling machines and devices; Z99.81 Dependence on supplemental oxygen; G89.29 Other chronic pain; I08.2 Rheumatic disorders of both aortic and tricuspid valves; I11.0 Hypertensive heart disease with heart failure; I27.20 Pulmonary hypertension, unspecified; I48.0 Paroxysmal atrial fibrillation; K22.70 Barrett's esophagus without dysplasia; K57.30 Diverticulosis of large intestine without perforation or abscess without bleeding; M15.9 Polyosteoarthritis, unspecified; Z66 Do not resuscitate; Z79.01 Long term (current) use of anticoagulants; Z79.82 Long term (current) use of aspirin; Z79.890 Hormone replacement therapy; Z79.899 Other long term (current) drug therapy; Z82.49 Family history of ischemic heart disease and other diseases of the circulatory system; Z90.49 Acquired absence of other specified parts of digestive tract; Z95.2 Presence of prosthetic heart valve; Z95.810 Presence of automatic (implantable) cardiac defibrillator; Z88.1 Allergy status to other antibiotic agents; Z88.0 Allergy status to penicillin; Z88.2 Allergy status to sulfonamides; Z88.8 Allergy status to other drugs, medicaments and biological substances; Z98.890 Other specified postprocedural states; Z82.61 Family history of arthritis; Z87.01 Personal history of pneumonia (recurrent)
CPT/HCPCS: 36415; 71045; 74019; 74176; 74250; 80048; 80053; 81003; 82150; 83605; 83690; 83735; 85025; 85027; 85610; 85730; 94760; 96374; 96375; 99285